=== PATIENT | female | born 1930 | race Hispanic/Latino ===

== ENCOUNTER 2017-04-23 18:38 | Inpatient (IN) | payer MEDICARE, OTHER ==
[2017-04-23 18:38] VITALS: BMI 23.8
[2017-04-23] MEDS ORDERED: Sodium Chloride 0.9% 1,000 ML IV STA (18:49)
--- NOTE | 2017-04-23 18:55 | ED PDOC ---
HPI: Altered Mental Status Time Seen by Provider: 04/23/17 18:49 Chief Complaint (Nursing): Altered Mental Status History Per: Family Onset/Duration Of Symptoms: Hrs (5) Onset Of Symptoms: Other (5 hrs ago) Description Of Symptoms: Confused Usual Baseline: Alert Oriented Exacerbating Factor(s): Fever Severity: Moderate Pain Scale Rating Of: 0 Associated Symptoms: Fever (Last seen normal by family at 2 PM 04/23/2017. Noted then to be confused and disoriented. Daughter also noted shaking left hand and arm. Improved after patient was given orange juice. Has been eating normally. Pt denies abd pain, headache, chest pain, vomiting or diarrhea.), Confused Past Medical History Vital Signs: Last Vital Signs Temp 102.7 F H 04/23/17 18:42 Pulse 79 04/23/17 18:42 Resp 18 04/23/17 18:42 BP 116/57 L 04/23/17 18:42 Pulse Ox 99 04/23/17 18:42 - Medical History PMH: Anemia, Atrial Fibrillation, CAD, Cardia Arrhythmia, CHF, COPD, Diabetes, Gastritis, HTN, Hypercholesterolemia, Peripheral Edema Denies: HIV, Chronic Kidney Disease - Surgical History Surgical History: CABG, Pacemaker (and defibrillator) Denies: Appendectomy - Family History Family History: States: Unknown Family Hx - Home Medications Home Medications: Ambulatory Orders Medication Instructions Recorded Acetaminophen [Tylenol Extra 650 mg PO Q6H PRN 06/17/14 Strength] Cyclosporine [Restasis] 1 drop EACHEYE BID 06/17/14 Dorzolamide 2%/Timolol 0.5% 1 drop EACHEYE BID 06/17/14 [Cosopt 2%-0.5% Opht] Ascorbic Acid/Cyanocobalamin1 1 tab PO DAILY 06/27/14 [Trigels-F Forte 60 mg-10 Mcg-1 mg-151 mg] Lactobacillus Acidophilus [Bacid 1 cap PO BID #0 cap 06/27/14 Acidophilus] Levalbuterol [Xopenex] 0.63 mg INH RQ8 PRN #0 neb 06/27/14 Multimineral/Multivitamin 1 tab PO DAILY #0 tab 06/27/14 [Therapeutic-M Tab] Pantoprazole [Protonix EC Tab] 40 mg PO BID #0 ect 06/27/14 Tafluprost [Zioptan] 1 drop EACHEYE HS 06/27/14 Aluminum Hydroxide/Magnesium 30 ml PO Q4 PRN #0 udc 07/09/14 [Maalox Plus 30 ml] Ferrous Sulfate [Feosol] 324 mg PO BID #0 ect 07/09/14 Apixaban [Eliquis] 2.5 mg PO BID #60 tab 10/24/14 Carvedilol 3.125 mg PO BID #60 tab 10/24/14 Furosemide 40 mg PO BID #60 tab 10/24/14 - Allergies Allergies/Adverse Reactions: Allergies Allergy/AdvReac Type Severity Reaction Status Date / Time Sulfa (Sulfonamide Allergy ITCHING Verified 04/23/17 18:41 Antibiotics) preservatives Allergy Unknown SWELLING Uncoded 10/01/14 15:06 Review of Systems ROS Statement: Except As Marked, All Systems Reviewed And Found Negative Constitutional: Positive for: Fever Neurological: Positive for: Confusion, Altered Mental Status. Negative for: Weakness, Headache Physical Exam - Reviewed Nursing Documentation Reviewed: Yes Vital Signs Reviewed: Yes - Physical Exam Appears: Positive for: Non-toxic, No Acute Distress Head Exam: Positive for: ATRAUMATIC, NORMAL INSPECTION, NORMOCEPHALIC Skin: Positive for: Normal Color, Warm, DRY Eye Exam: Positive for: EOMI, Normal appearance, PERRL ENT: Positive for: Other (Mucous membranes dry) Neck: Positive for: Normal, Painless ROM Cardiovascular/Chest: Positive for: Regular Rate, Rhythm Respiratory: Positive for: Rhonchi (scattered, no wheezing). Negative for: Respiratory Distress Gastrointestinal/Abdominal: Positive for: Normal Exam, Bowel Sounds, Soft Back: Positive for: Normal Inspection Extremity: Positive for: Normal ROM Neurologic/Psych: Positive for: Alert, Oriented (x1). Negative for: Motor/ Sensory Deficits - Laboratory Results Result Diagrams: 04/23/17 19:10 04/23/17 19:10 - ECG O2 Sat by Pulse Oximetry: 99 Disposition - Clinical Impression Clinical Impression: Sepsis, UTI (urinary tract infection), Dehydration - Patient ED Disposition Is Patient to be Admitted: Yes - Disposition Disposition Time: 19:50 Condition: FAIR Forms: [facility] (Mongolian) - Pt Status Changed To: Hospital Disposition Of: Inpatient - Admit Certification Admit to Inpatient:: After my assessment, the patient will require hospitalization for at least two midnights. This is because of the severity of symptoms shown, intensity of services needed, and/or the medical risk in this patient being treated as an outpatient. - POA Present On Arrival: None
[2017-04-23] MEDS ORDERED: Vancomycin 1 g Inj ONE (18:56)
[2017-04-23 19:18] LABS: BASO % 0.2 % (0.0-2.0); HEMOGLOBIN 11.9 g/dL (12.0-16.0); LYMPH # 0.2 K/uL (1.0-4.3); LYMPH % 1.8 % (20.0-40.0); MEAN CELL VOLUME 99.8 fl (81.0-99.0); MEAN CORPUSCULAR HEMOGLOBIN 32.4 pg (27.0-31.0); MEAN CORPUSCULAR HGB CONC 32.4 g/dL (33.0-37.0); MEAN PLATELET VOLUME 9.6 fl (7.2-11.7); MONO # 0.9 K/uL (0.0-0.8); MONO % 6.5 % (0.0-10.0); NEUT # 12.2 K/uL (1.8-7.0); NEUT % 91.5 % (50.0-75.0); PLATELET COUNT 117 K/uL (130-400); RBC 3.68 Mil/uL (3.80-5.20); RED CELL DISTRIBUTION WIDTH 16.1 % (11.5-14.5); WHITE BLOOD COUNT 13.3 K/uL (4.8-10.8)
[2017-04-23 19:21] LABS: VENOUS BLOOD GAS BASE EXCESS 2.7 mmol/L (0.0-2.0); VENOUS BLOOD GAS PCO2 44 mmHg (40-60); VENOUS BLOOD GAS PO2 19 mm/Hg (30-55); VENOUS BLOOD PH 7.41 (7.32-7.43)
[2017-04-23 19:26] LABS: ALB/GLOB RATIO 1.2 (1.0-2.1); ALBUMIN 4.4 g/dL (3.5-5.0); CALCIUM 9.5 mg/dL (8.4-10.2)
[2017-04-23] MEDS ORDERED: Meropenem 1 GM in Sodium Chloride 0.9% 100 ML IVPB ONE (19:40)
[2017-04-23 19:47] LABS: URINE BACTERIA FEW (<OCC); URINE BILIRUBIN NEGATIVE (NEGATIVE); URINE BLOOD MODERATE (NEGATIVE); URINE CLARITY TURBID (Clear); URINE COLOR AMBER (YELLOW); URINE GLUCOSE (UA) NEG (Normal); URINE LEUKOCYTE ESTERASE LARGE Leu/uL (Negative); URINE NITRATE NEGATIVE (NEGATIVE); URINE PROTEIN 100 mg/dL (NEGATIVE); URINE UROBILINOGEN 0.2-1.0 mg/dL (0.2-1.0); WBC CLUMPS MANY /hpf
[2017-04-23 19:59] LABS: INR 1.8 (0.9-1.2); PROTHROMBIN TIME 18.8 Seconds (9.8-13.1)
[2017-04-23 20:35] LABS: ANISOCYTOSIS MODERATE; BANDS 3 % (0-2); LARGE PLATELETS PRESENT; LYMPHOCYTE 4 % (20-50); MONOCYTE 8 % (0-10); NEUTROPHIL 85 % (42-75); PLATELET ESTIMATE SLIGHTLY DECREASED (NORMAL); POIKILOCYTOSIS SLIGHT; TEARDROP CELLS SLIGHT; TOTAL CELLS COUNTED 100
[2017-04-23] MEDS: Sodium Chloride 0.9% 1,000 ML IV SCH (22:32)
--- NOTE | 2017-04-23 23:58 | CP.PCM.PN ---
Subjective - Date & Time of Evaluation Date of Evaluation: 04/23/17 Time of Evaluation: 23:47 - Subjective Subjective: I D NOTE PATIENT EXAMINED HISTORY WELL KNOWN TO ME DIAGNOSIS 1.UROSEPSIS 2.DEHYDRATION 3.CAD 4.AF(HAS DEFIBRILLATOR 5.COPD 6.CHF RX:MEROPENEM 500MG IVPB Q8H HAS BEEN GIVEN STAT DOSE OF VANCOMYCIN 500MG IN THE ER AWAIT RANDOM VANCOMYCIN LEVEL IN AM Objective - Vital Signs/Intake and Output Vital Signs (last 24 hours): Temp Pulse Resp BP Pulse Ox 98.3 F 79 18 112/46 L 99 04/23/17 20:34 04/23/17 18:42 04/23/17 18:42 04/23/17 22:44 04/23/17 19:50 - Medications Medications: Current Medications Sodium Chloride (Sodium Chloride 0.9%) 1,000 mls @ 100 mls/hr IV .Q10H [facility] Stop: 04/24/17 04:48 Last Admin: 04/23/17 19:35 Dose: 100 mls/hr Sodium Chloride (Sodium Chloride 0.9%) 1,000 mls @ 50 mls/hr IV .Q20H [facility] Stop: 04/24/17 21:20 Last Admin: 04/23/17 22:32 Dose: 50 mls/hr Meropenem 500 mg/ Sodium (Chloride) 100 mls @ 100 mls/hr IVPB Q8 [facility] - Labs Labs: PT 18.8 Seconds (9.8-13.1) H 04/23/17 19:20 INR 1.8 (0.9-1.2) H 04/23/17 19:20
[2017-04-24] MEDS: Meropenem 500 MG in Sodium Chloride 0.9% 100 ML IVPB SCH ×2 (02:43→12:55)
[2017-04-24 06:23] LABS: BASO % 0.2 % (0.0-2.0); HEMOGLOBIN 11.2 g/dL (12.0-16.0); LYMPH # 0.3 K/uL (1.0-4.3); LYMPH % 2.3 % (20.0-40.0); MEAN CELL VOLUME 100.4 fl (81.0-99.0); MEAN CORPUSCULAR HEMOGLOBIN 32.3 pg (27.0-31.0); MEAN CORPUSCULAR HGB CONC 32.2 g/dL (33.0-37.0); MEAN PLATELET VOLUME 10.2 fl (7.2-11.7); MONO % 7.7 % (0.0-10.0); NEUT # 11.1 K/uL (1.8-7.0); NEUT % 89.8 % (50.0-75.0); NRBC % 0.1 % (0.0-0.0); RBC 3.45 Mil/uL (3.80-5.20); RED CELL DISTRIBUTION WIDTH 15.7 % (11.5-14.5); WHITE BLOOD COUNT 12.4 K/uL (4.8-10.8)
[2017-04-24 06:40] LABS: ALB/GLOB RATIO 1.2 (1.0-2.1); CALCIUM 8.9 mg/dL (8.4-10.2)
--- NOTE | 2017-04-24 07:34 | CARD ---
APPROVED REPORT EKG Measurement Heart [id number] <Conclusion> Atrial Fib Ventricular-paced rhythm with occasional premature ventricular complexes Abnormal ECG
--- NOTE | 2017-04-24 09:22 | RAD ---
HISTORY: cough COMPARISON: Portable chest 10/10/2014. FINDINGS: LUNGS: No acute infiltrate identified in the pulmonary vascular pattern appears normal with prior pulmonary venous congestion pattern diminished or resolved. PLEURA: No significant pleural effusion identified, no pneumothorax apparent. Prior right pleural effusion appears to have cleared. CARDIOVASCULAR: Cardiomegaly appears stable. OSSEOUS STRUCTURES: No significant abnormalities. VISUALIZED UPPER ABDOMEN: Normal. OTHER FINDINGS: Pacemaker/ implantable it again identified placed as well as apparent or orphaned leads at the right heart from a right subclavian approach. IMPRESSION: Interval resolution of prior CHF pattern including right pleural effusion pulmonary venous congestion. No acute infiltrate identified at this time.
--- NOTE | 2017-04-24 10:35 | CP.PCM.HP ---
History of Present Illness - History of Present Illness History of Present Illness: this 86-year-old female was brought to the emergency room by her family after being found to have fever and chills. The patient has had a long history of worsening dementia but on this particular day she was further confused and disoriented. The patient has had a long medical history which includes an acute inferior wall myocardial infarction in 1987 followed by a cardiac arrest in 1992 from which she was revived, coronary bypass graft surgery was carried out and the patient had an AICD implanted. The patient has had chronic atrial fibrillation which was treated with oral anticoagulation in the form of warfarin for number of years. The patient had recurrent GI bleeds and had severe anemia which required transfusions on multiple occasions in the past. The patient and her family declined to have any gastrointestinal workup. The patient has had a long history of chronic cigarette use and she has chronic obstructive airway disease. The patient has had glaucoma and bilateral macular degeneration with severe impairment of vision in both eyes. She has had worsening dementia and her cognitive abilities has steadily declined. The patient has had congestive cardiac failure and has been treated with furosemide for number of years. The patient has been on Eliquis for couple of years because of atrial fibrillation. Her AICD has been regularly evaluated. She has undergone AV node ablation and depends on her pacemaker which functions in a VVI mode and has BiV pacing. The patient has had recent fall but did not suffer any bony injury and declined to come to emergency room for x-rays. On physical examination this was an elderly female who was resting in bed with a respiratory rate of 16 breaths per minute and could carry on a conversation. She readily recognize me but could not precisely say how she got here. Her telemetry showed atrial fibrillation with a VVI paced rhythm. Her extremities were warm. Nailbeds were pink there was no central or peripheral cyanosis. Her blood pressure was 112/70 mmHg. Her jugular venous pressure was not elevated. There was no edema over her lower extremity or sacrum. Her pedal pulses were not palpable. There were no carotid bruits. Scar of sternotomy was evident and an AICD was in place. Her first and second heart sounds were normal and distant there was an apical systolic murmur of mitral regurgitation. There was no S3 gallop. Excretion was slightly prolonged. There were no rales. Her abdomen was soft no organomegaly was detected there was no guarding or rigidity or tenderness no mass was detected. Her electrocardiogram showed atrial fibrillation with VVI paced rhythm. Her labs showed on arrival in the emergency room she had a WBC count of 13,300 with 91% neutrophils which this morning was 12,400 with 89% neutrophils. Her hemoglobin and hematocrit where 11.2 g and 34.7% respectively this morning her platelet count which was 117,000 at admission was 100,000 this morning. Her BUN and creatinine which at admission were 53 and 1.8 mg percent where 54 and 1.7 mg percent this morning after intravenous hydration. Her urinalysis showed large number of WBCs and red blood cells with bacteria. Impression: urosepsis. Congestive cardiac failure which was left ventricular systolic and chronic. Stable coronary artery disease with prior myocardial infarctions and status post coronary bypass graft surgery. Chronic atrial fibrillation. AV node ablation with status post AICD implant with bi-V pacing in VVI mode. COPD. Significant visual impairment secondary to glaucoma and macular degeneration. Dementia. the patient is on intravenous antibiotic and intravenous fluids. She appears to have responded to the IV antibiotic with resolution of her fever. Urine culture and blood cultures are pending. A urology evaluation would be carried out. She appears hemodynamically stable at this juncture. Present on Admission - Present on Admission Any Indicators Present on Admission: No Past Patient History - Infectious Disease Hx of Infectious Diseases: None - Tetanus Immunizations Tetanus Immunization: Unknown - Past Medical History & Family History Past Medical History?: Yes - Past Social History Smoking Status: Never Smoked - CARDIAC Hx Cardiac Disorders: Yes - PULMONARY Hx Respiratory Disorders: Yes - NEUROLOGICAL Hx Neurological Disorder: No - HEENT Hx Glaucoma: Yes - RENAL Hx Chronic Kidney Disease: No - ENDOCRINE/METABOLIC Hx Endocrine Disorders: Yes - HEMATOLOGICAL/ONCOLOGICAL Hx Anemia: Yes Hx Human Immunodeficiency Virus (HIV): No - INTEGUMENTARY Hx Dermatological Problems: No - MUSCULOSKELETAL/RHEUMATOLOGICAL Hx Falls: Yes - GASTROINTESTINAL Hx Gastritis: Yes - GENITOURINARY/GYNECOLOGICAL Hx Genitourinary Disorders: No - PSYCHIATRIC Hx Psychophysiologic Disorder: No Hx Substance Use: No - SURGICAL HISTORY Hx Appendectomy: No Hx Coronary Artery Bypass Graft: Yes - ANESTHESIA Hx Anesthesia: Yes Hx Anesthesia Reactions: No Hx Malignant Hyperthermia: No Meds Allergies/Adverse Reactions: Allergies Allergy/AdvReac Type Severity Reaction Status Date / Time Sulfa (Sulfonamide Allergy ITCHING Verified 04/23/17 18:41 Antibiotics) preservatives Allergy Unknown SWELLING Uncoded 10/01/14 15:06 Results - Vital Signs Recent Vital Signs: Last Vital Signs Temp 99.1 F 04/24/17 08:00 Pulse 77 04/24/17 08:00 Resp 18 04/24/17 08:00 BP 101/61 04/24/17 08:00 Pulse Ox 95 04/24/17 08:00 - Labs Result Diagrams: 04/24/17 05:30 04/24/17 05:30 Labs: Laboratory Results - last 24 hr 04/24/17 04/24/17 04/24/17 05:30 05:30 05:30 WBC 12.4 H RBC 3.45 L Hgb 11.2 L Hct 34.7 MCV 100.4 H MCH 32.3 H MCHC 32.2 L RDW 15.7 H Plt Count 100 L MPV 10.2 Neut % (Auto) 89.8 H Lymph % (Auto) 2.3 L [place] % (Auto) 7.7 Eos % (Auto) 0.0 Baso % (Auto) 0.2 Neut # 11.1 H Lymph # 0.3 L [place] # 1.0 H Eos # 0.0 Baso # 0.0 Sodium 137 Potassium 5.0 Chloride 101 Carbon Dioxide 24 Anion Gap 17 BUN 54 H Creatinine 1.7 H Est GFR ( Amer) 34 Est GFR (Non-Af Amer) 28 Random Glucose 225 H Lactic Acid 1.4 Calcium 8.9 Total Bilirubin 0.9 AST 27 ALT 34 Alkaline Phosphatase 116 Total Protein 7.3 Albumin 4.0 Globulin 3.3 Albumin/Globulin Ratio 1.2 Random Vancomycin 04/24/17 05:30 WBC RBC Hgb Hct MCV MCH MCHC RDW Plt Count MPV Neut % (Auto) Lymph % (Auto) [place] % (Auto) Eos % (Auto) Baso % (Auto) Neut # Lymph # [place] # Eos # Baso # Sodium Potassium Chloride Carbon Dioxide Anion Gap BUN Creatinine Est GFR ( Amer) Est GFR (Non-Af Amer) Random Glucose Lactic Acid Calcium Total Bilirubin AST ALT Alkaline Phosphatase Total Protein Albumin Globulin Albumin/Globulin Ratio Random Vancomycin 9.1
[2017-04-24] MEDS ORDERED: Alum-Mag Hydrox-Simethicone Susp (30 mL) PO PRN (11:26)
--- NOTE | 2017-04-24 13:10 | PQF UROSEP ---
This form is a permanent part of the medical record 04/24/17 Dr. Elian Wade, Please clarify the specific condition indicated by the term 'urosepsis'. ICD-10 does not recognize this as a diagnosis. Admitted with fever, chills and AMS. Temp 102.7. WBC 13.3 with a L shift, UA: Turbid, leukocyte esterase large, wbc, bacteria. Blood and Urine CS Pending results. Treated with Merrem. Clarification of your documentation is requested to better reflect the severity of illness and intensity of treatment of your patient. Indicators present [x] Documentation of UROSEPSIS [x] Fever or hypothermia [x] WBC count > 12,000/mm3 or <4000/mm3 or 10% immature neutrophils [] Hypotension [] Tachycardia [x] Altered mental status/confusion [] + Urine/Blood Cultures " Pending [x] Other: [] UA: turbid, leukocyte esterase large, wbc, bacteria Location in the medical record that reflects the above clinical findings: [] Treatment Provided: [x] PHYSICIAN'S RESPONSE Bacteremia present (Blood culture +ve for GM - Rods) Based on your medical judgment of the clinical indicators outlined above, are you treating this patient for a known or suspected: [X] Sepsis from a Urinary Source [] Localized Urinary Tract Infection - pyuria or bacteria in the urine [] Bacteriuria only without infection [] Other, please indicate [] [] If unable to determine, please check the box, sign and date. Present On Admission (POA) Indicator: [X] Present at the time of admission [] Not present at the time of admission [] Clinically Undetermined In responding to this query, please exercise your independent professional judgment. The fact that a question is asked does not imply that any particular answer is desired or expected. Thank you for your clarification on this documentation. If you have any questions please call:ext [phone] * Thank you, Bre Aguilar RN CDMP MTDD
[2017-04-24] MEDS ORDERED: Patient's Own Med (Dorzolamide 2%/Timolol 0.5% [Cosopt 2%-0.5% Opht] 1 DROP) EACHEYE SCH (17:00)
[2017-04-24] MEDS ORDERED: Dorzolamide 2% Ophth Soln OU SCH (17:00)
[2017-04-24] MEDS: Sodium Chloride 0.9% 1,000 ML IV SCH (17:35)
--- NOTE | 2017-04-24 19:51 | CP.PCM.PN ---
Subjective - Date & Time of Evaluation Date of Evaluation: 04/24/17 Time of Evaluation: 19:44 - Subjective Subjective: ID NOTE PATIENT HAS APPEARED UNCOMFORTABLE SINCE EARLY AFTER NOON HAS HAD COUGH .OCCASSIONALSOB AND SUDDEN BOUT OF ABDOMINAL PAIN ,HAS NOT HAD BM TODAY. ON PE THERE ARE INCREASED BS,PAIN ON EXAM IN RIGHT AND LEFT LQ BLOOD CULTURES ARE POSITIVE FOR GRAM NEGATIVE RODS HAVE ADDED ZOSYN IN ADJUSTED DOSE TO RX DISCUSSED C RESPIRATORY TREATMENTS ORDERED.PULMONARY CONSULT ORDERED C PORTABLE FLAT PLATE OF ABDOMEN :AWAITING READING BUT APPEARS TO BE ILEUS,AIR IN bowel HAS ULTRASOUND ABDOMEN /PELVIS FOR AM ALONG C CBC/CMP/FOLLLOWUP BLOOD CULTURES Objective - Vital Signs/Intake and Output Vital Signs (last 24 hours): Temp Pulse Resp BP Pulse Ox 98.2 F 79 18 104/57 L 99 04/24/17 16:00 04/24/17 17:34 04/24/17 16:00 04/24/17 17:34 04/24/17 16:00 Intake and Output: 04/24/17 04/25/17 18:59 06:59 Intake Total 1000 Output Total 1100 Balance -100 - Medications Medications: Current Medications Al Hydrox/Mg Hydrox/Simethicone (Maalox Plus 30 Ml) 30 ml PO Q4 PRN PRN Reason: Indigestion / Heartburn Apixaban (Eliquis) 2.5 mg PO BID [facility] PRN Reason: Protocol Last Admin: 04/24/17 17:34 Dose: 2.5 mg Carvedilol (Coreg) 3.125 mg PO BID [facility] Last Admin: 04/24/17 17:34 Dose: 3.125 mg Ferrous Sulfate (Feosol) 325 mg PO BID [facility] Last Admin: 04/24/17 17:34 Dose: 325 mg Home Med (Cyclosporine [Restasis]) 1 drop BOTHEYES BID [facility] Sodium Chloride (Sodium Chloride 0.9%) 1,000 mls @ 50 mls/hr IV .Q20H [facility] Stop: 04/24/17 21:20 Last Admin: 04/24/17 17:35 Dose: 50 mls/hr Meropenem 500 mg/ Sodium (Chloride) 100 mls @ 100 mls/hr IVPB Q12 [facility] Piperacillin Sod/Tazobactam (Sod 2.25 gm/ Sodium Chloride) 100 mls @ 100 mls/ hr IVPB Q8H [facility] Levalbuterol HCl (Xopenex) 0.63 mg INH RQ8 [facility] Multivitamins/Minerals (Therapeutic-M Tab) 1 tab PO DAILY [facility] Pantoprazole Sodium (Protonix Ec Tab) 40 mg PO DAILY [facility] - Labs Labs: 04/24/17 05:30 04/24/17 05:30 PT 18.8 Seconds (9.8-13.1) H 04/23/17 19:20 INR 1.8 (0.9-1.2) H 04/23/17 19:20
--- NOTE | 2017-04-24 20:40 | RAD ---
EXAM: XR Abdomen, 1 View CLINICAL HISTORY: 86 years old, female; Pain; Abdominal pain; Generalized TECHNIQUE: Frontal supine view of the abdomen/pelvis. EXAM DATE/TIME: 04/24/2017 6:51 PM COMPARISON: CR - ABDOMEN PORTABLE 2 VIEWS 07/07/2014 9:37:58 PM FINDINGS: Lower thorax: The heart is enlarged. There are pacemaker leads. Lung bases are clear. Gastrointestinal tract: There is mild gaseous distention of small bowel. There is moderate stool and air in portions of the colon. Bones/joints: Bony structures are osteopenic with degenerative change. Soft tissues: There are no abnormal soft tissue masses or pathologic calcifications. There are clips in the left inguinal region. IMPRESSION: Mildly distended small bowel more suggestive of ileus than obstruction Additional findings as described above.
[2017-04-24] MEDS ORDERED: Meropenem 500 MG in Sodium Chloride 0.9% 100 ML IVPB SCH (21:00)
[2017-04-25] MEDS: Levalbuterol 0.63 MG/3 ML Inhal Soln UD INH SCH ×4 (00:03→23:49)
[2017-04-25] MEDS: Meropenem 500 MG in Sodium Chloride 0.9% 100 ML IVPB SCH ×2 (01:00→15:25)
[2017-04-25 06:22] LABS: BASO % 0.3 % (0.0-2.0); EOS % 0.1 % (0.0-4.0); HEMOGLOBIN 10.3 g/dL (12.0-16.0); LYMPH # 0.4 K/uL (1.0-4.3); LYMPH % 5.4 % (20.0-40.0); MEAN CELL VOLUME 100.2 fl (81.0-99.0); MEAN CORPUSCULAR HEMOGLOBIN 32.5 pg (27.0-31.0); MEAN CORPUSCULAR HGB CONC 32.5 g/dL (33.0-37.0); MEAN PLATELET VOLUME 10.1 fl (7.2-11.7); MONO # 0.8 K/uL (0.0-0.8); MONO % 12.2 % (0.0-10.0); NEUT # 5.3 K/uL (1.8-7.0); RBC 3.15 Mil/uL (3.80-5.20); WHITE BLOOD COUNT 6.5 K/uL (4.8-10.8)
[2017-04-25 06:32] LABS: ALB/GLOB RATIO 1.1 (1.0-2.1); ALBUMIN 3.3 g/dL (3.5-5.0); CALCIUM 8.4 mg/dL (8.4-10.2)
[2017-04-25] MEDS: Pantoprazole 40 mg EC Tab PO SCH (09:57)
[2017-04-25] MEDS: Multivitamin With Minerals Tab PO SCH (09:57)
--- NOTE | 2017-04-25 10:12 | CP.PCM.PN ---
Subjective - Date & Time of Evaluation Date of Evaluation: 04/25/17 Time of Evaluation: 09:00 - Subjective Subjective: Pt's son at bedside Readily arousable Recognised me readily Answers questions appropriately Afebrile (except for temp of 100 degrees at 5 M) A Fib with VVI paced rhythm BP 106/70 mm Hg JVP flat, no rales Apical syst murmur of MR Abd soft without any tenderness or guarding or rigidity Blood Cultures have grown GM -ve Rods Leucocytosis has resolved Creatinin down to 1.4 mg (GFR much improved) Pt will go for Abd sonogram now Will have PICC line inserted today afternoon Explained to the son at length her progress and her Rx Objective - Vital Signs/Intake and Output Vital Signs (last 24 hours): Temp Pulse Resp BP Pulse Ox 98.3 F 76 20 100/57 L 99 04/25/17 08:45 04/25/17 09:56 04/25/17 08:45 04/25/17 09:56 04/25/17 08:45 Intake and Output: 04/25/17 04/25/17 06:59 18:59 Output Total 250 Balance -250 - Medications Medications: Current Medications Al Hydrox/Mg Hydrox/Simethicone (Maalox Plus 30 Ml) 30 ml PO Q4 PRN PRN Reason: Indigestion / Heartburn Apixaban (Eliquis) 2.5 mg PO BID [facility] PRN Reason: Protocol Last Admin: 04/25/17 09:57 Dose: 2.5 mg Carvedilol (Coreg) 3.125 mg PO BID [facility] Last Admin: 04/25/17 09:56 Dose: 3.125 mg Ferrous Sulfate (Feosol) 325 mg PO BID [facility] Last Admin: 04/25/17 09:57 Dose: 325 mg Home Med (Cyclosporine [Restasis]) 1 drop BOTHEYES BID [facility] Piperacillin Sod/Tazobactam (Sod 2.25 gm/ Sodium Chloride) 100 mls @ 100 mls/ hr IVPB Q8@0600,1400,2200 [facility] Last Admin: 04/25/17 06:21 Dose: 100 mls/hr Meropenem 500 mg/ Sodium (Chloride) 100 mls @ 100 mls/hr IVPB Q12@0000,1200 [facility] Last Admin: 04/25/17 01:00 Dose: 100 mls/hr Sodium Chloride (Sodium Chloride 0.9%) 1,000 mls @ 50 mls/hr IV .Q20H [facility] Stop: 04/26/17 09:58 Levalbuterol HCl (Xopenex) 0.63 mg INH RQ8 [facility] Last Admin: 04/25/17 07:34 Dose: 0.63 mg Multivitamins/Minerals (Therapeutic-M Tab) 1 tab PO DAILY [facility] Last Admin: 04/25/17 09:57 Dose: 1 tab Pantoprazole Sodium (Protonix Ec Tab) 40 mg PO DAILY [facility] Last Admin: 04/25/17 09:57 Dose: 40 mg - Labs Labs: 04/25/17 05:20 04/25/17 05:20 PT 18.8 Seconds (9.8-13.1) H 04/23/17 19:20 INR 1.8 (0.9-1.2) H 04/23/17 19:20
--- NOTE | 2017-04-25 11:19 | CP.PCM.PN ---
Subjective - Date & Time of Evaluation Date of Evaluation: 04/25/17 Time of Evaluation: 11:17 - Subjective Subjective: gu consult on chart. imp urosepsis on appropiate inv antibiotics. cont for several more days then transition to po antibiotics according to c&s report Objective - Vital Signs/Intake and Output Vital Signs (last 24 hours): Temp Pulse Resp BP Pulse Ox 98.3 F 76 20 100/57 L 99 04/25/17 08:45 04/25/17 09:56 04/25/17 08:45 04/25/17 09:56 04/25/17 08:45 Intake and Output: 04/25/17 04/25/17 06:59 18:59 Output Total 250 Balance -250 - Medications Medications: Current Medications Al Hydrox/Mg Hydrox/Simethicone (Maalox Plus 30 Ml) 30 ml PO Q4 PRN PRN Reason: Indigestion / Heartburn Apixaban (Eliquis) 2.5 mg PO BID [facility] PRN Reason: Protocol Last Admin: 04/25/17 09:57 Dose: 2.5 mg Carvedilol (Coreg) 3.125 mg PO BID [facility] Last Admin: 04/25/17 09:56 Dose: 3.125 mg Ferrous Sulfate (Feosol) 325 mg PO BID [facility] Last Admin: 04/25/17 09:57 Dose: 325 mg Home Med (Cyclosporine [Restasis]) 1 drop BOTHEYES BID [facility] Piperacillin Sod/Tazobactam (Sod 2.25 gm/ Sodium Chloride) 100 mls @ 100 mls/ hr IVPB Q8@0600,1400,2200 [facility] Last Admin: 04/25/17 06:21 Dose: 100 mls/hr Meropenem 500 mg/ Sodium (Chloride) 100 mls @ 100 mls/hr IVPB Q12@0000,1200 [facility] Last Admin: 04/25/17 01:00 Dose: 100 mls/hr Sodium Chloride (Sodium Chloride 0.9%) 1,000 mls @ 50 mls/hr IV .Q20H [facility] Stop: 04/26/17 09:58 Levalbuterol HCl (Xopenex) 0.63 mg INH RQ8 [facility] Last Admin: 04/25/17 07:34 Dose: 0.63 mg Multivitamins/Minerals (Therapeutic-M Tab) 1 tab PO DAILY [facility] Last Admin: 04/25/17 09:57 Dose: 1 tab Pantoprazole Sodium (Protonix Ec Tab) 40 mg PO DAILY [facility] Last Admin: 04/25/17 09:57 Dose: 40 mg - Labs Labs: 04/25/17 05:20 04/25/17 05:20 PT 18.8 Seconds (9.8-13.1) H 04/23/17 19:20 INR 1.8 (0.9-1.2) H 04/23/17 19:20
--- NOTE | 2017-04-25 13:52 | CP.PCM.CON ---
History of Present Illness - History of Present Illness History of Present Illness: This 87 year old female is known to me from prior hospitalization as well as the outpatient setting. She is a former cigarette smoker with prior diagnosis of COPD. At this time she was admitted with UTI and sepsis, but her respiratory disease has been quiescent. Her activity at home is markedly limited and she does not complain of SOB. She has an extensive cardiac history complicated by arrhythmia as well as cardiomyopathy and prior OR/cardiac arrest. Comorbid conditions have included, GI bleeding, COPD and dementia. Past Patient History - Infectious Disease Hx of Infectious Diseases: None - Tetanus Immunizations Tetanus Immunization: Unknown - Past Medical History & Family History Past Medical History?: Yes - Past Social History Smoking Status: Former Smoker Chewing Tobacco Use: No Cigar Use: No Alcohol: None Drugs: Denies Home Situation {Lives}: With Family - CARDIAC Hx Atrial Fibrillation: Yes Hx Congestive Heart Failure: Yes Hx Heart Attack: Yes Hx Hypercholesterolemia: Yes Hx Hypertension: Yes Hx Internal Defibrillator: Yes Hx Pacemaker: Yes Hx Peripheral Edema: Yes - PULMONARY Hx Chronic Obstructive Pulmonary Disease (COPD): Yes - NEUROLOGICAL Hx Dementia: Yes - HEENT Hx Glaucoma: Yes Hx Macular Degeneration: Yes - RENAL Hx Chronic Kidney Disease: No - ENDOCRINE/METABOLIC Hx Endocrine Disorders: No - HEMATOLOGICAL/ONCOLOGICAL Hx Anemia: Yes Hx Blood Transfusions: Yes Hx Human Immunodeficiency Virus (HIV): No - INTEGUMENTARY Hx Dermatological Problems: No - MUSCULOSKELETAL/RHEUMATOLOGICAL Hx Falls: Yes - GASTROINTESTINAL Hx Gastritis: Yes - GENITOURINARY/GYNECOLOGICAL Hx Genitourinary Disorders: No - PSYCHIATRIC Hx Psychophysiologic Disorder: No Hx Substance Use: No - SURGICAL HISTORY Hx Appendectomy: No Hx Cardiac Catheterization: Yes Hx Coronary Artery Bypass Graft: Yes - ANESTHESIA Hx Anesthesia: Yes Hx Anesthesia Reactions: No Hx Malignant Hyperthermia: No Meds Allergies/Adverse Reactions: Allergies Allergy/AdvReac Type Severity Reaction Status Date / Time Sulfa (Sulfonamide Allergy ITCHING Verified 04/23/17 18:41 Antibiotics) preservatives Allergy Unknown SWELLING Uncoded 10/01/14 15:06 - Medications Medications: Current Medications Al Hydrox/Mg Hydrox/Simethicone (Maalox Plus 30 Ml) 30 ml PO Q4 PRN PRN Reason: Indigestion / Heartburn Apixaban (Eliquis) 2.5 mg PO BID [facility] PRN Reason: Protocol Last Admin: 04/25/17 09:57 Dose: 2.5 mg Carvedilol (Coreg) 3.125 mg PO BID [facility] Last Admin: 04/25/17 09:56 Dose: 3.125 mg Ferrous Sulfate (Feosol) 325 mg PO BID [facility] Last Admin: 04/25/17 09:57 Dose: 325 mg Home Med (Cyclosporine [Restasis]) 1 drop BOTHEYES BID [facility] Piperacillin Sod/Tazobactam (Sod 2.25 gm/ Sodium Chloride) 100 mls @ 100 mls/ hr IVPB Q8@0600,1400,2200 [facility] Last Admin: 04/25/17 06:21 Dose: 100 mls/hr Meropenem 500 mg/ Sodium (Chloride) 100 mls @ 100 mls/hr IVPB Q12@0000,1200 [facility] Last Admin: 04/25/17 01:00 Dose: 100 mls/hr Sodium Chloride (Sodium Chloride 0.9%) 1,000 mls @ 50 mls/hr IV .Q20H [facility] Stop: 04/26/17 09:58 Levalbuterol HCl (Xopenex) 0.63 mg INH RQ8 [facility] Last Admin: 04/25/17 07:34 Dose: 0.63 mg Multivitamins/Minerals (Therapeutic-M Tab) 1 tab PO DAILY [facility] Last Admin: 04/25/17 09:57 Dose: 1 tab Pantoprazole Sodium (Protonix Ec Tab) 40 mg PO DAILY [facility] Last Admin: 04/25/17 09:57 Dose: 40 mg Physical Exam - Additional Findings Additional findings: No jaundice, well-nourished well-developed, no acute distress. Neck is supple and trachea is midline. No neck vein distention is noted. Carotids are equal with diminished upstroke bilaterally. No bruit. No cervical adenopathy. No palpable thyroid enlargement. No supraclavicular or axillary adenopathy. Pharynx is pink and mucous membranes are moist. No exudate. Conjunctivae are pale and there is no scleral icterus. Nares are patent bilaterally, no bleeding or exudate. Chest: No dullness to percussion. Equal expansion. Lungs: Breath sounds are diminished but present bilaterally. There are no audible rales or wheezes heard. No bronchial breath sounds. No egophony. Heart: Regular, systolic murmur is heard along the left sternal border and at the apex. Abdomen is soft and nontender. Bowel sounds appear normal. There is no palpable hepatosplenomegaly or mass. No hepatojugular reflux. Lower extremities: No cyanosis. Scattered varicose veins are noted in both lower extremities. Trace edema of the feet bilaterally. No calf tenderness or palpable venous cords. No Homans sign. She is awake, alert and oriented x3. Focal motor weaknesses noted. Forgetful. Speech is fluent. Cranial nerves are intact Results - Vital Signs Recent Vital Signs: Last Vital Signs Temp 97.9 F 04/25/17 12:34 Pulse 80 04/25/17 12:34 Resp 18 04/25/17 12:34 BP 85/48 L 04/25/17 12:34 Pulse Ox 97 04/25/17 12:34 - Labs Result Diagrams: 04/28/17 05:45 04/28/17 05:45 Labs: Laboratory Results - last 24 hr 04/24/17 04/25/17 04/25/17 05:30 05:20 05:20 WBC 6.5 RBC 3.15 L Hgb 10.3 L Hct 31.6 L MCV 100.2 H MCH 32.5 H MCHC 32.5 L RDW 16.0 H Plt Count 82 L MPV 10.1 Neut % (Auto) 82.0 H Lymph % (Auto) 5.4 L Banner % (Auto) 12.2 H Eos % (Auto) 0.1 Baso % (Auto) 0.3 Neut # 5.3 Lymph # 0.4 L Banner # 0.8 Eos # 0.0 Baso # 0.0 Sodium 138 Potassium 4.2 Chloride 104 Carbon Dioxide 24 Anion Gap 14 BUN 54 H Creatinine 1.4 H Est GFR ( Amer) 43 Est GFR (Non-Af Amer) 35 Random Glucose 183 H Calcium 8.4 Total Bilirubin 0.7 AST 25 ALT 32 Alkaline Phosphatase 89 Total Protein 6.4 Albumin 3.3 L Globulin 3.1 Albumin/Globulin Ratio 1.1 Procalcitonin 2.39 H Assessment & Plan (1) Sepsis Status: Acute Priority: High (2) UTI (urinary tract infection) Status: Acute Priority: High (3) COPD (chronic obstructive pulmonary disease) Status: Chronic Priority: Medium Comment: No current complaints of SOB or wheezing. Present CXR is clear of infiltrates or effusions. Low venous O2 sat reflects combination of chronic lung disease and reduced cardiac output. Would not change anything or add other treatments at this time. (4) Cardiomyopathy Status: Chronic Priority: High - Assessment and Plan (Free Text) Plan: THANKS, - Date & Time Date: 04/25/17 Time: 13:50
--- NOTE | 2017-04-25 15:12 | US ---
HISTORY: RLQ discomfort COMPARISON: 05/15/2011. TECHNIQUE: Sonographic evaluation of the abdomen. FINDINGS: LIVER: Measures 16.6 cm. Patent portal vein. Portal venous flow: Hepatopetal. Unremarkeable Normal echogenicity of the liver parenchyma. No mass. No intrahepatic bile duct dilatation. GALLBLADDER: Unremarkable. No gallstones. COMMON BILE DUCT: Measures 4.1 mm. No stones. No dilatation. PANCREAS: Obscured by overlying bowel gas. Non diagnostic assessment of the pancreas RIGHT KIDNEY: Measures 3.9 x 5.4 x 11.3cm. Normal echogenicity. No calculus, mass, or hydronephrosis.Incidental finding(s): Upper pole cysts 1.5 x 1.1 cm unchanged compared to prior study. LEFT KIDNEY: Measures 4.9 x 5 x 10cm. Normal echogenicity. No calculus, mass, or hydronephrosis.Incidental finding(s): Upper pole cyst 1.7 x 2.6 x 2.5 cm SPLEEN: Splenomegaly. Orthogonal measurements 5 x 13.2 cm. AORTA: No aneurysmal dilatation. IVC: Unremarkable. OTHER FINDINGS: None. IMPRESSION: Splenomegaly. This represents a new finding compared to the prior study.Additional benign and/or incidental findings described above. Limitations of the current examination: Nondiagnostic assessment of the pancreas obscured by overlying bowel gas
[2017-04-25] MEDS ORDERED: Lidocaine 1% Inj (20ml) ONE (15:42)
--- NOTE | 2017-04-25 16:55 | PCM.SURG1 ---
Surgeon's Initial Post Op Note - Surgeon's Notes Surgeon: Jostin Galeano MD Expeller Worker: None Type of Anesthesia: Local Pre-Operative Diagnosis: Poor venous access Operative Findings: Patent right basilic vein. Post-Operative Diagnosis: Poor venous access Operation Performed: Poor venous access Specimen/Specimens Removed: NONE Estimated Blood Loss: EBL {In ML}: 2 Blood Products Given: N/A Drains Used: No Drains Post-Op Condition: Fair Date of Surgery/Procedure: 04/25/17 Time of Surgery/Procedure: 16:50
[2017-04-25] MEDS: Sodium Chloride 0.9% 1,000 ML IV SCH (17:44)
--- NOTE | 2017-04-25 20:37 | CON ---
DATE: This is an 87-year-old female patient who I was asked to evaluate today because of urinary tract infection. The patient is accompanied in her room with her son who gave me a perceptive on the patient's overall medical condition. She has a significant cardiac history in the past. Her ability to ambulate is quite restricted. She suffers of easy fatigability. She does essentially live by herself and the son suggested that because of significant lack of personal hygiene that perhaps the patient has suffered urinary tract infection. In her home, her chair where the patient usually sits is saturated with urine, appears not to be completely clean. In an any event, the patient then came to the hospital with initial laboratory findings of elevated white blood cell count at 13.3. She was quite dry with a BUN and creatinine of 54 and 1.7. Also, the patient is probably diabetic and her blood sugar was 225 at the time of admission. A urine culture was performed, grew significant amounts of gram-negative rods, probably E. coli. The patient has been placed on antibiotic meropenem and piperacillin were given to the patient and a Mackey catheter was inserted. The subsequent lab reports from the date of admission on the , the blood work today on the showed the BUN remains at 54, the creatinine is slowly coming down at 1.4. Her sugar this morning was 183. White blood cell count now is down to 6.5 within normal range. The final culture is pending, but also was found culture positive in the blood as well, so this appears to be an uroseptic condition and she is probably on significant and appropriate IV antibiotics. The catheter, the urine in the bag appears to be somewhat concentrated, but rather clear in appearance. The patient is completely asleep and totally fatigued. The conservation has been with the son for this evaluation. I think at this point when the patient has had several more days of IV antibiotics, Mackey catheter can be removed because I have not heard at any place that the patient has any difficulty urinating. This was probably met more for monitoring intake and output and so I think once the patient is more stable, then the catheter should come out and stress of hygiene of the area would be of primary importance and at some point, she will be transitioned from IV antibiotics to p.o. oral and then followed up as an outpatient. Nima Perez MD
[2017-04-26] MEDS: Meropenem 500 MG in Sodium Chloride 0.9% 100 ML IVPB SCH ×2 (00:11→14:50)
[2017-04-26] MEDS: Sodium Chloride 0.9% 1,000 ML IV SCH (06:53)
[2017-04-26] MEDS: Levalbuterol 0.63 MG/3 ML Inhal Soln UD INH SCH ×3 (07:17→23:48)
[2017-04-26 07:39] LABS: BASO % 0.2 % (0.0-2.0); EOS # 0.1 K/uL (0.0-0.7); EOS % 1.3 % (0.0-4.0); HEMOGLOBIN 10.4 g/dL (12.0-16.0); LYMPH # 0.3 K/uL (1.0-4.3); LYMPH % 4.8 % (20.0-40.0); MEAN CORPUSCULAR HEMOGLOBIN 32.7 pg (27.0-31.0); MEAN CORPUSCULAR HGB CONC 32.7 g/dL (33.0-37.0); MEAN PLATELET VOLUME 10.5 fl (7.2-11.7); MONO # 0.9 K/uL (0.0-0.8); NEUT # 5.3 K/uL (1.8-7.0); NEUT % 80.7 % (50.0-75.0); NRBC % 0.1 % (0.0-0.0); RBC 3.19 Mil/uL (3.80-5.20); WHITE BLOOD COUNT 6.6 K/uL (4.8-10.8)
[2017-04-26 07:47] LABS: ALB/GLOB RATIO 1.1 (1.0-2.1); ALBUMIN 3.3 g/dL (3.5-5.0); CALCIUM 8.4 mg/dL (8.4-10.2)
[2017-04-26] MEDS: Multivitamin With Minerals Tab PO SCH (09:55)
[2017-04-26] MEDS: Pantoprazole 40 mg EC Tab PO SCH (09:55)
[2017-04-26] MEDS: Patient's Own Med (Cyclosporine [Restasis] 1 DROP) BOTHEYES SCH ×2 (14:50→17:39)
--- NOTE | 2017-04-26 15:27 | US ---
PROCEDURE: HISTORY: RLQ DISCOMFORT COMPARISON: TECHNIQUE: FINDINGS: Suprapubic catheter is in place. The uterus is not well visualized. It measures grossly 5.8 x 4.3 x 4.0 centimeters. The ovaries are not identified. No gross free fluid the pelvis. IMPRESSION: Suprapubic catheter in place. Uterus grossly unremarkable.
--- NOTE | 2017-04-26 18:40 | CP.PCM.PN ---
Subjective - Date & Time of Evaluation Date of Evaluation: 04/26/17 Time of Evaluation: 18:33 - Subjective Subjective: I D NOTE BLOOD AND URINE CULTURE ARE BOTH POSITIVE FOR E.COLI C [place] SENSITIVITIES FOR MOST ANTIBIOTICS FOR PRESENT WILL D/C MEROPENEM ,START CEFTRIAXONE BUT WILL CONTINUE POLY ANTIBIOTIC COVERAGE SHE HAS DEVELOPED STAGE II ULCER ON LEFT BUTTOCK (SACRUM) AND WANT TO MAINTAIN ADDITIONAL COVERAGE.HAVE ALSO ORDERED HILL ROM P500 BED (DISCUSSED C WOUND CARE NURSING i.e GOLDIE KRUEGER) SHE IS AFEBRILE TODAY WBC:6.6,PLATELETS:94(HAVE INCREASED),POLYS:80 CREATININE:1.3,GFR:39,BLOOD GLUCOSE ARE ALL OVER 200,HgbA1C:7.7 WILL LIKELY NEED TO START RX FOR DM US(ABDOMEN&PELVIS) REVIEWED , OF NOTE,IN REGARD TO PELVIS SHE HAS HAD NEMESIO Objective - Vital Signs/Intake and Output Vital Signs (last 24 hours): Temp Pulse Resp BP Pulse Ox 97.5 F L 72 20 98/58 L 100 04/26/17 16:42 04/26/17 17:38 04/26/17 16:42 04/26/17 17:38 04/26/17 16:42 - Medications Medications: Current Medications Al Hydrox/Mg Hydrox/Simethicone (Maalox Plus 30 Ml) 30 ml PO Q4 PRN PRN Reason: Indigestion / Heartburn Apixaban (Eliquis) 2.5 mg PO BID [facility] PRN Reason: Protocol Last Admin: 04/26/17 17:38 Dose: 2.5 mg Carvedilol (Coreg) 3.125 mg PO BID [facility] Last Admin: 04/26/17 17:38 Dose: Not Given Ferrous Sulfate (Feosol) 325 mg PO BID [facility] Last Admin: 04/26/17 17:38 Dose: 325 mg Home Med (Cyclosporine [Restasis]) 1 drop BOTHEYES BID [facility] Last Admin: 04/26/17 17:39 Dose: Not Given Piperacillin Sod/Tazobactam (Sod 2.25 gm/ Sodium Chloride) 100 mls @ 100 mls/ hr IVPB Q8@0600,1400,2200 [facility] Last Admin: 04/26/17 14:51 Dose: 100 mls/hr Meropenem 500 mg/ Sodium (Chloride) 100 mls @ 100 mls/hr IVPB Q12@0000,1200 [facility] Last Admin: 04/26/17 14:50 Dose: 100 mls/hr Levalbuterol HCl (Xopenex) 0.63 mg INH RQ8 [facility] Last Admin: 04/26/17 15:21 Dose: 0.63 mg Multivitamins/Minerals (Therapeutic-M Tab) 1 tab PO DAILY [facility] Last Admin: 04/26/17 09:55 Dose: 1 tab Pantoprazole Sodium (Protonix Ec Tab) 40 mg PO DAILY [facility] Last Admin: 04/26/17 09:55 Dose: 40 mg - Labs Labs: 04/26/17 06:00 04/26/17 06:00 PT 18.8 Seconds (9.8-13.1) H 04/23/17 19:20 INR 1.8 (0.9-1.2) H 04/23/17 19:20
[2017-04-27] MEDS: Levalbuterol 0.63 MG/3 ML Inhal Soln UD INH SCH ×2 (07:52→15:56)
[2017-04-27 08:12] LABS: HEMOGLOBIN 10.7 g/dL (12.0-16.0); MEAN CELL VOLUME 101.3 fl (81.0-99.0); MEAN CORPUSCULAR HEMOGLOBIN 32.9 pg (27.0-31.0); MEAN CORPUSCULAR HGB CONC 32.5 g/dL (33.0-37.0); RBC 3.26 Mil/uL (3.80-5.20); RED CELL DISTRIBUTION WIDTH 15.9 % (11.5-14.5); WHITE BLOOD COUNT 9.7 K/uL (4.8-10.8)
[2017-04-27 08:19] LABS: ALB/GLOB RATIO 1.1 (1.0-2.1); ALBUMIN 3.4 g/dL (3.5-5.0); CALCIUM 8.9 mg/dL (8.4-10.2)
[2017-04-27] MEDS: cefTRIAXone 2 GM in Sodium Chloride 0.9% 100 ML IVPB SCH (10:18)
[2017-04-27] MEDS: Pantoprazole 40 mg EC Tab PO SCH (10:19)
[2017-04-27] MEDS: Multivitamin With Minerals Tab PO SCH (10:20)
--- NOTE | 2017-04-27 10:45 | CP.PCM.PN ---
Subjective - Date & Time of Evaluation Date of Evaluation: 04/27/17 Time of Evaluation: 10:00 - Subjective Subjective: Pt offers no complaints afebrile Dr Chaparro's note appreciated Blood and Urine cultures + E Coli on antibiotic as per Dr Chaparro Objective - Vital Signs/Intake and Output Vital Signs (last 24 hours): Temp Pulse Resp BP Pulse Ox 98.5 F 76 20 134/81 98 04/27/17 08:00 04/27/17 10:20 04/27/17 08:00 04/27/17 10:20 04/27/17 08:00 Intake and Output: 04/27/17 04/27/17 06:59 18:59 Intake Total 800 1120 Output Total 380 400 Balance 420 720 - Medications Medications: Current Medications Al Hydrox/Mg Hydrox/Simethicone (Maalox Plus 30 Ml) 30 ml PO Q4 PRN PRN Reason: Indigestion / Heartburn Apixaban (Eliquis) 2.5 mg PO BID [facility] PRN Reason: Protocol Last Admin: 04/27/17 10:19 Dose: 2.5 mg Carvedilol (Coreg) 3.125 mg PO BID [facility] Last Admin: 04/27/17 10:20 Dose: 3.125 mg Ferrous Sulfate (Feosol) 325 mg PO BID [facility] Last Admin: 04/27/17 10:19 Dose: 325 mg Home Med (Cyclosporine [Restasis]) 1 drop BOTHEYES BID [facility] Last Admin: 04/26/17 17:39 Dose: Not Given Piperacillin Sod/Tazobactam (Sod 2.25 gm/ Sodium Chloride) 100 mls @ 100 mls/ hr IVPB Q8@0600,1400,2200 [facility] Last Admin: 04/27/17 06:17 Dose: 100 mls/hr Ceftriaxone Sodium 2 gm/ (Sodium Chloride) 100 mls @ 100 mls/hr IVPB DAILY [facility] Last Admin: 04/27/17 10:18 Dose: 100 mls/hr Levalbuterol HCl (Xopenex) 0.63 mg INH RQ8 [facility] Last Admin: 04/27/17 07:52 Dose: 0.63 mg Multivitamins/Minerals (Therapeutic-M Tab) 1 tab PO DAILY [facility] Last Admin: 04/27/17 10:20 Dose: 1 tab Pantoprazole Sodium (Protonix Ec Tab) 40 mg PO DAILY [facility] Last Admin: 04/27/17 10:19 Dose: 40 mg - Labs Labs: 04/27/17 05:30 04/27/17 05:30 PT 18.8 Seconds (9.8-13.1) H 04/23/17 19:20 INR 1.8 (0.9-1.2) H 04/23/17 19:20
[2017-04-27] MEDS: Patient's Own Med (Cyclosporine [Restasis] 1 DROP) BOTHEYES SCH ×3 (10:58→22:21)
[2017-04-27] MEDS ORDERED: Sodium Chloride 0.9% 1,000 ML IV SCH (18:00)
[2017-04-27] MEDS: Sodium Chloride 0.9% 1,000 ML IV SCH (18:47)
[2017-04-27] MEDS ORDERED: TAFLUPROST 0.0015% PO SCH (22:00)
[2017-04-27] MEDS: TIMOLOL OU SCH (22:26)
[2017-04-27] MEDS: DORZOLAMIDE OU SCH (22:26)
[2017-04-27] MEDS: TAFLUPROST 0.0015% OU SCH (23:04)
[2017-04-28 06:36] LABS: HEMOGLOBIN 9.7 g/dL (12.0-16.0); MEAN CELL VOLUME 101.7 fl (81.0-99.0); MEAN CORPUSCULAR HEMOGLOBIN 32.8 pg (27.0-31.0); MEAN CORPUSCULAR HGB CONC 32.3 g/dL (33.0-37.0); RBC 2.95 Mil/uL (3.80-5.20); RED CELL DISTRIBUTION WIDTH 15.9 % (11.5-14.5); WHITE BLOOD COUNT 6.9 K/uL (4.8-10.8)
[2017-04-28 06:53] LABS: ALBUMIN 3.1 g/dL (3.5-5.0); ALT/SGPT 39 U/L (9-52); AST/SGOT 23 U/L (14-36); BLOOD UREA NITROGEN 29 mg/dl (7-17); CALCIUM 8.7 mg/dL (8.4-10.2); GFR AFRICAN-AMERICAN > 60; GFR NON-AFRICAN AMERICAN 52
[2017-04-28] MEDS: Levalbuterol 0.63 MG/3 ML Inhal Soln UD INH SCH ×2 (08:14→19:19)
--- NOTE | 2017-04-28 08:43 | CP.PCM.PN ---
Subjective - Date & Time of Evaluation Date of Evaluation: 04/28/17 Time of Evaluation: 08:15 - Subjective Subjective: Sitting OOB, readily recognised me Afebrile A Fib with VVI paced rhythm BP 124/74 mm Hg PICC line in place (Mild bleeding at PICC site due to Eliquis+ Thrombocytopenia) Chest clear, no rales Apical syst murmur of MR+ Redness on sacral area Labs show Hb 9.7 Gms/ PLTLT count 83K (after rising for 2 days) BUN/Creatinin continues to improve (29mg/1.0mg) K+4.4mEq/L Will follow CBC to monitor PLTLT count (Emipenem was D/Joe 2 days back) Eliquis is held till Pltlt count stabilises Pt awaits a bed in TCU Objective - Vital Signs/Intake and Output Vital Signs (last 24 hours): Temp Pulse Resp BP Pulse Ox 97.7 F 76 20 132/75 98 04/28/17 08:00 04/28/17 08:00 04/28/17 08:00 04/28/17 08:00 04/28/17 08:00 Intake and Output: 04/28/17 04/28/17 06:59 18:59 Intake Total 700 Output Total 300 Balance 400 - Medications Medications: Current Medications Al Hydrox/Mg Hydrox/Simethicone (Maalox Plus 30 Ml) 30 ml PO Q4 PRN PRN Reason: Indigestion / Heartburn Carvedilol (Coreg) 3.125 mg PO BID [facility] Last Admin: 04/27/17 17:40 Dose: 3.125 mg Ferrous Sulfate (Feosol) 325 mg PO BID [facility] Last Admin: 04/27/17 17:40 Dose: 325 mg Home Med (Cyclosporine [Restasis]) 1 drop BOTHEYES BID [facility] Last Admin: 04/27/17 22:21 Dose: 1 drop Home Med (Patient's Own Medication) 1 unit OU BID [facility] Last Admin: 04/27/17 22:26 Dose: 1 unit Home Med (Patient's Own Medication) 1 unit OU HS [facility] Last Admin: 04/27/17 23:04 Dose: 1 unit Piperacillin Sod/Tazobactam (Sod 2.25 gm/ Sodium Chloride) 100 mls @ 100 mls/ hr IVPB Q8@0600,1400,2200 [facility] Last Admin: 04/28/17 04:59 Dose: 100 mls/hr Ceftriaxone Sodium 2 gm/ (Sodium Chloride) 100 mls @ 100 mls/hr IVPB DAILY [facility] Last Admin: 04/27/17 10:18 Dose: 100 mls/hr Sodium Chloride (Sodium Chloride 0.9%) 1,000 mls @ 50 mls/hr IV .Q20H [facility] Stop: 04/28/17 17:53 Last Admin: 04/27/17 18:47 Dose: 50 mls/hr Levalbuterol HCl (Xopenex) 0.63 mg INH RQ8 [facility] Last Admin: 04/28/17 08:14 Dose: 0.63 mg Metformin HCl (Glucophage) 500 mg PO BIDWM [facility] Multivitamins/Minerals (Therapeutic-M Tab) 1 tab PO DAILY [facility] Last Admin: 04/27/17 10:20 Dose: 1 tab Pantoprazole Sodium (Protonix Ec Tab) 40 mg PO DAILY [facility] Last Admin: 04/27/17 10:19 Dose: 40 mg - Labs Labs: 04/28/17 05:45 04/28/17 05:45 PT 18.8 Seconds (9.8-13.1) H 04/23/17 19:20 INR 1.8 (0.9-1.2) H 04/23/17 19:20
[2017-04-28] MEDS: Patient's Own Med (Cyclosporine [Restasis] 1 DROP) BOTHEYES SCH ×2 (08:59→17:27)
[2017-04-28] MEDS: Multivitamin With Minerals Tab PO SCH (09:01)
[2017-04-28] MEDS: Pantoprazole 40 mg EC Tab PO SCH (09:02)
[2017-04-28] MEDS: cefTRIAXone 2 GM in Sodium Chloride 0.9% 100 ML IVPB SCH (09:02)
--- NOTE | 2017-04-28 09:48 | CP.PCM.PN ---
Subjective - Date & Time of Evaluation Date of Evaluation: 04/28/17 Time of Evaluation: 09:46 - Subjective Subjective: Seated in bedside chair eating breakfast. Appears comfortable at rest. Pleasant mood, forgetful. Offers no complaint of SOB. Platelets down to 83, no elevated WBC. Renal function is stable. Vital signs remain stable. Breath sounds are present bilaterally. No audible wheezing or bronchial breathing. Few dry basal rales posteriorly. No cyanosis. Stable respiratory status. Thrombocytopenia. Objective - Vital Signs/Intake and Output Vital Signs (last 24 hours): Temp Pulse Resp BP Pulse Ox 97.7 F 76 20 132/75 98 04/28/17 08:00 04/28/17 09:01 04/28/17 08:00 04/28/17 09:01 04/28/17 08:00 Intake and Output: 04/27/17 04/28/17 23:59 11:59 Intake Total 900 700 Output Total 450 300 Balance 450 400 - Medications Medications: Current Medications Al Hydrox/Mg Hydrox/Simethicone (Maalox Plus 30 Ml) 30 ml PO Q4 PRN PRN Reason: Indigestion / Heartburn Carvedilol (Coreg) 3.125 mg PO BID [facility] Last Admin: 04/28/17 09:01 Dose: 3.125 mg Ferrous Sulfate (Feosol) 325 mg PO BID [facility] Last Admin: 04/28/17 09:01 Dose: 325 mg Home Med (Cyclosporine [Restasis]) 1 drop BOTHEYES BID [facility] Last Admin: 04/28/17 08:59 Dose: 1 drop Home Med (Patient's Own Medication) 1 unit OU BID [facility] Last Admin: 04/27/17 22:26 Dose: 1 unit Home Med (Patient's Own Medication) 1 unit OU HS [facility] Last Admin: 04/27/17 23:04 Dose: 1 unit Piperacillin Sod/Tazobactam (Sod 2.25 gm/ Sodium Chloride) 100 mls @ 100 mls/ hr IVPB Q8@0600,1400,2200 [facility] Last Admin: 04/28/17 04:59 Dose: 100 mls/hr Ceftriaxone Sodium 2 gm/ (Sodium Chloride) 100 mls @ 100 mls/hr IVPB DAILY [facility] Last Admin: 04/28/17 09:02 Dose: 100 mls/hr Sodium Chloride (Sodium Chloride 0.9%) 1,000 mls @ 50 mls/hr IV .Q20H [facility] Stop: 04/28/17 17:53 Last Admin: 04/27/17 18:47 Dose: 50 mls/hr Levalbuterol HCl (Xopenex) 0.63 mg INH RQ8 [facility] Last Admin: 04/28/17 08:14 Dose: 0.63 mg Metformin HCl (Glucophage) 500 mg PO BIDWM [facility] Last Admin: 04/28/17 09:31 Dose: 500 mg Multivitamins/Minerals (Therapeutic-M Tab) 1 tab PO DAILY [facility] Last Admin: 04/28/17 09:01 Dose: 1 tab Pantoprazole Sodium (Protonix Ec Tab) 40 mg PO DAILY [facility] Last Admin: 04/28/17 09:02 Dose: 40 mg - Labs Labs: 04/28/17 05:45 04/28/17 05:45 PT 18.8 Seconds (9.8-13.1) H 04/23/17 19:20 INR 1.8 (0.9-1.2) H 04/23/17 19:20 Assessment and Plan (1) Sepsis Status: Acute (2) UTI (urinary tract infection) Status: Acute (3) COPD (chronic obstructive pulmonary disease) Status: Chronic (4) Cardiomyopathy Status: Chronic
[2017-04-28] MEDS: DORZOLAMIDE OU SCH ×2 (12:51→17:27)
[2017-04-28] MEDS: TIMOLOL OU SCH ×2 (12:51→17:27)
--- NOTE | 2017-04-28 13:20 | VASCULAR ---
PROCEDURE: Date of procedure: 04/25/2017 Procedure: 1. Placement of a right arm PICC with ultrasound and fluoroscopic guidance, CPT 40786 2. PICC tip confirmation with spot radiograph and is in the superior vena cava Medications: 4cc 1 percent lidocaine Total Fluoro time: 9.1 seconds Radiation: 0.48 MGy EBL: 2 cc HISTORY: Poor venous access TECHNIQUE: Following informed consent and procedure time-out, the patient was placed supine on the interventional table and the right arm prepped and draped in the usual sterile fashion. Ultrasound showed a patent and compressible right basilic vein. After the skin was anesthetized with lidocaine, the basilic vein was accessed with micro micropuncture technique using ultrasound guidance. A guidewire was then advanced under fluoroscopic guidance into the superior vena cava. An image documenting ultrasound guidance for vascular access was permanently saved. The length of the single-lumen 4 English PICC was trimmed to 35 centimeters and advanced through a peel-away sheath. The PICC was position with tip of PICC confirm a spot radiograph the superior vena cava. The PICC was secured to the patient's skin. The PICC was flushed. A biopatch and sterile dressing was applied. IMPRESSION: Placement of a single-lumen 4 English PICC trimmed to 35 centimeters via right basilic vein. The tip of the PICC is confirmed with spot radiograph and is in the superior vena cava.
[2017-04-28] MEDS: Sodium Chloride 0.9% 1,000 ML IV SCH (18:37)
[2017-04-28] MEDS: TAFLUPROST 0.0015% OU SCH (22:13)
[2017-04-29] MEDS: Levalbuterol 0.63 MG/3 ML Inhal Soln UD INH SCH ×4 (00:57→17:19)
[2017-04-29 07:20] LABS: HEMOGLOBIN 10.5 g/dL (12.0-16.0); MEAN CORPUSCULAR HEMOGLOBIN 32.8 pg (27.0-31.0); MEAN CORPUSCULAR HGB CONC 32.5 g/dL (33.0-37.0); RBC 3.2 Mil/uL (3.80-5.20); WHITE BLOOD COUNT 6.8 K/uL (4.8-10.8)
[2017-04-29 07:27] LABS: ALB/GLOB RATIO 1.1 (1.0-2.1); ALBUMIN 3.2 g/dL (3.5-5.0); ALT/SGPT 34 U/L (9-52); AST/SGOT 25 U/L (14-36); BLOOD UREA NITROGEN 24 mg/dl (7-17); CALCIUM 8.8 mg/dL (8.4-10.2); GFR AFRICAN-AMERICAN > 60; GFR NON-AFRICAN AMERICAN 52
--- NOTE | 2017-04-29 08:39 | CP.PCM.PN ---
Subjective - Date & Time of Evaluation Date of Evaluation: 04/29/17 Time of Evaluation: 08:37 - Subjective Subjective: urology pt seen today and advised that hassan will be removed today will check post void residual later today Objective - Vital Signs/Intake and Output Vital Signs (last 24 hours): Temp Pulse Resp BP Pulse Ox 97.5 F L 77 18 142/69 93 L 04/29/17 08:00 04/29/17 08:00 04/29/17 08:00 04/29/17 08:00 04/29/17 08:00 - Medications Medications: Current Medications Al Hydrox/Mg Hydrox/Simethicone (Maalox Plus 30 Ml) 30 ml PO Q4 PRN PRN Reason: Indigestion / Heartburn Apixaban (Eliquis) 5 mg PO BID [facility] PRN Reason: Protocol Carvedilol (Coreg) 3.125 mg PO BID [facility] Last Admin: 04/28/17 17:26 Dose: 3.125 mg Ferrous Sulfate (Feosol) 325 mg PO BID [facility] Last Admin: 04/28/17 17:26 Dose: 325 mg Home Med (Cyclosporine [Restasis]) 1 drop BOTHEYES BID [facility] Last Admin: 04/28/17 17:27 Dose: 1 drop Home Med (Patient's Own Medication) 1 unit OU BID [facility] Last Admin: 04/28/17 17:27 Dose: 1 unit Home Med (Patient's Own Medication) 1 unit OU HS [facility] Last Admin: 04/28/17 22:13 Dose: Not Given Piperacillin Sod/Tazobactam (Sod 2.25 gm/ Sodium Chloride) 100 mls @ 100 mls/ hr IVPB Q8@0600,1400,2200 [facility] Last Admin: 04/29/17 05:19 Dose: 100 mls/hr Ceftriaxone Sodium 2 gm/ (Sodium Chloride) 100 mls @ 100 mls/hr IVPB DAILY [facility] Last Admin: 04/28/17 09:02 Dose: 100 mls/hr Levalbuterol HCl (Xopenex) 0.63 mg INH RQ8 [facility] Last Admin: 04/29/17 08:02 Dose: 0.63 mg Metformin HCl (Glucophage) 500 mg PO BIDWM [facility] Last Admin: 04/28/17 17:26 Dose: 500 mg Multivitamins/Minerals (Therapeutic-M Tab) 1 tab PO DAILY [facility] Last Admin: 04/28/17 09:01 Dose: 1 tab Pantoprazole Sodium (Protonix Ec Tab) 40 mg PO DAILY [facility] Last Admin: 04/28/17 09:02 Dose: 40 mg - Labs Labs: 04/29/17 06:15 04/29/17 06:20 PT 18.8 Seconds (9.8-13.1) H 04/23/17 19:20 INR 1.8 (0.9-1.2) H 04/23/17 19:20
[2017-04-29] MEDS: DORZOLAMIDE OU SCH ×2 (09:06→16:30)
[2017-04-29] MEDS: TIMOLOL OU SCH ×2 (09:06→16:30)
[2017-04-29] MEDS: Pantoprazole 40 mg EC Tab PO SCH (09:07)
[2017-04-29] MEDS: Multivitamin With Minerals Tab PO SCH (09:08)
[2017-04-29] MEDS: Patient's Own Med (Cyclosporine [Restasis] 1 DROP) BOTHEYES SCH ×2 (09:08→16:30)
--- NOTE | 2017-04-29 09:08 | CP.PCM.PN ---
Subjective - Date & Time of Evaluation Date of Evaluation: 04/29/17 Time of Evaluation: 08:40 - Subjective Subjective: Afebrile, sitting up eating breakfast, with son in attendance A fib with VVI paced rhythm BP 110/70 mm Hg JVP flat, few basal rales No gallop, Apical syst murmur of MR+ PLTLT count now 117K Will restart Eliquis Mackey to come out today Await TCU bed Objective - Vital Signs/Intake and Output Vital Signs (last 24 hours): Temp Pulse Resp BP Pulse Ox 97.5 F L 77 18 142/69 93 L 04/29/17 08:00 04/29/17 08:00 04/29/17 08:00 04/29/17 08:00 04/29/17 08:00 - Medications Medications: Current Medications Al Hydrox/Mg Hydrox/Simethicone (Maalox Plus 30 Ml) 30 ml PO Q4 PRN PRN Reason: Indigestion / Heartburn Apixaban (Eliquis) 5 mg PO BID [facility] PRN Reason: Protocol Carvedilol (Coreg) 3.125 mg PO BID [facility] Last Admin: 04/28/17 17:26 Dose: 3.125 mg Ferrous Sulfate (Feosol) 325 mg PO BID [facility] Last Admin: 04/28/17 17:26 Dose: 325 mg Furosemide (Lasix) 20 mg PO DAILY [facility] Home Med (Cyclosporine [Restasis]) 1 drop BOTHEYES BID [facility] Last Admin: 04/28/17 17:27 Dose: 1 drop Home Med (Patient's Own Medication) 1 unit OU BID [facility] Last Admin: 04/28/17 17:27 Dose: 1 unit Home Med (Patient's Own Medication) 1 unit OU HS [facility] Last Admin: 04/28/17 22:13 Dose: Not Given Piperacillin Sod/Tazobactam (Sod 2.25 gm/ Sodium Chloride) 100 mls @ 100 mls/ hr IVPB Q8@0600,1400,2200 [facility] Last Admin: 04/29/17 05:19 Dose: 100 mls/hr Ceftriaxone Sodium 2 gm/ (Sodium Chloride) 100 mls @ 100 mls/hr IVPB DAILY [facility] Last Admin: 04/28/17 09:02 Dose: 100 mls/hr Levalbuterol HCl (Xopenex) 0.63 mg INH RQ8 [facility] Last Admin: 04/29/17 08:02 Dose: 0.63 mg Metformin HCl (Glucophage) 500 mg PO BIDWM [facility] Last Admin: 04/28/17 17:26 Dose: 500 mg Multivitamins/Minerals (Therapeutic-M Tab) 1 tab PO DAILY [facility] Last Admin: 04/28/17 09:01 Dose: 1 tab Pantoprazole Sodium (Protonix Ec Tab) 40 mg PO DAILY [facility] Last Admin: 04/28/17 09:02 Dose: 40 mg - Labs Labs: 04/29/17 06:15 04/29/17 06:20 PT 18.8 Seconds (9.8-13.1) H 04/23/17 19:20 INR 1.8 (0.9-1.2) H 04/23/17 19:20
[2017-04-29] MEDS: cefTRIAXone 2 GM in Sodium Chloride 0.9% 100 ML IVPB SCH (09:19)
--- NOTE | 2017-04-29 10:29 | RAD ---
HISTORY: COPD COMPARISON: 04/23/2017 FINDINGS: The right PICC line terminates in the SVC. LUNGS: There is persistent pulmonary venous congestion. There is airspace disease in the right lower lobe. PLEURA: There is a small right pleural effusion. No pneumothorax. CARDIOVASCULAR: The heart remains enlarged with prominent central vasculature. There is stable position of left-sided dual lead transvenous permanent pacing device. OSSEOUS STRUCTURES: No significant abnormalities. VISUALIZED UPPER ABDOMEN: Normal. OTHER FINDINGS: None. IMPRESSION: Suspect right lower lobe pneumonia and small right pleural effusion. Follow-up is advised.
[2017-04-29 12:46] VITALS: TEMP 97.4; O2SAT 100
[2017-04-29 15:44] VITALS: BP 117/65; PULSE 76; RESP 20
== END 2017-04-29 18:13 | DRG 872 ==
LOC: H.ER 18:38 → H.ERHOLD 19:49 → H.TEL 23:04
PROVIDERS: ADMIT Internal Medicine Cardiovascular Disease; ATTEND Internal Medicine Cardiovascular Disease
PROC: 02HV33Z Insertion of Infusion Device into Superior Vena Cava, Percutaneous Approach (ICD-10-PCS; principal; 2017-04-28)
PROC: B548ZZA Ultrasonography of Superior Vena Cava, Guidance (ICD-10-PCS; 2017-04-28)
DX: A41.51 Sepsis due to Escherichia coli [E. coli] (principal); L89.322 Pressure ulcer of left buttock, stage 2; I42.9 Cardiomyopathy, unspecified; I11.0 Hypertensive heart disease with heart failure; D69.6 Thrombocytopenia, unspecified; I48.2 Chronic atrial fibrillation; I50.22 Chronic systolic (congestive) heart failure; F03.90 Unspecified dementia, unspecified severity, without behavioral disturbance, psychotic disturbance, mood disturbance, and anxiety; N39.0 Urinary tract infection, site not specified; J44.9 Chronic obstructive pulmonary disease, unspecified; E86.0 Dehydration; I34.0 Nonrheumatic mitral (valve) insufficiency; I25.10 Atherosclerotic heart disease of native coronary artery without angina pectoris; Z95.810 Presence of automatic (implantable) cardiac defibrillator; Z87.891 Personal history of nicotine dependence; H54.7 Unspecified visual loss; H40.9 Unspecified glaucoma; H35.30 Unspecified macular degeneration; Z95.1 Presence of aortocoronary bypass graft; I25.2 Old myocardial infarction

== ENCOUNTER 2017-04-29 15:53 | Inpatient (IN) | payer OTHER ==
[2017-04-29 18:25] VITALS: BMI 25.4
[2017-04-29 20:14] VITALS: RESP 20
[2017-04-29] MEDS ORDERED: Alum-Mag Hydrox-Simethicone Susp (30 mL) PO PRN (21:19)
[2017-04-29] MEDS: TAFLUPROST EACHEYE SCH (22:22)
[2017-04-29] MEDS: Levalbuterol 0.63 MG/3 ML Inhal Soln UD INH SCH (23:51)
[2017-04-30] MEDS ORDERED: Piperacillin/Tazobact 2.25 gm Inj IVPB SCH
[2017-04-30] MEDS ORDERED: cefTRIAXone (Rocephin) 2 gm Inj IVPB SCH (05:00)
[2017-04-30] MEDS: cefTRIAXone 2 GM in Sodium Chloride 0.9% 100 ML IVPB SCH (05:08)
[2017-04-30] MEDS: Insulin Regular 100 units/ml SC SCH ×4 (06:54→21:51)
--- NOTE | 2017-04-30 06:56 | CON ---
ENDOCRINOLOGY CONSULT The patient is seen in room 711, TCU. HISTORY OF PRESENT ILLNESS: This is an 87-year-old female with known history of type 2 diabetes, hypertension, significant cardiac vasculopathy who has been transferred to TCU for ongoing IV antibiotics, following a recent UTI and bacteremia and is now being referred for diabetic evaluation and management. PAST MEDICAL HISTORY: As mentioned above, history of type 2 diabetes currently on metformin given as 500 mg b.i.d. with meals. Her A1c has been reported at 7.7%. History of hypertension and dyslipidemia, history of coronary artery disease with previous myocardial infarction and subsequent coronary artery bypass graft surgery has undertaken. She also had an insertion of an AICD device and is being followed closely for hemodynamic monitoring. History of chronic obstructive lung disease from previous nicotine dependence, also previous admissions for congestive heart failure as noted thereof. She also had chronic anemia, has received blood transfusions related to recurrent GI bleeding. At this time, she also has chronic atrial fibrillation and on Eliquis oral anticoagulation therapy at this time. She has received a previous AV node ablation also as noted. 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 FAMILY HISTORY: Positive for hypertension and diabetes. SOCIAL HISTORY: Patient has supportive family. Also history of significant nicotine dependence for over 20 years. No other known substance use. REVIEW OF SYSTEMS: As mentioned above, admits to generalized body weakness with easy fatigability and tiredness and suboptimal energy level. Also admits to episodic dizziness and lightheadedness worse in the last few days prior to admission. No chest pains or palpitations although admits to progressive shortness of breath especially on exertion with recent paroxysmal nocturnal dyspnea. Her oral intake has been variable and suboptimal with nausea, dyspepsia and vague upper abdominal pain with habitual constipation. PHYSICAL EXAMINATION GENERAL: This is an average built female, in no apparent distress. VITAL SIGNS: Blood pressure is 140/80, pulse of 70 beats per minute and regular, temperature 99 and respirations 20. Height is 5 feet 1 inches, weight is 135 pounds. HEENT: Head normocephalic. Eyes anicteric with pink conjunctivae. Funduscopy not possible at this time. Ears, nose and throat otherwise normal. NECK: Supple. Thyroid gland is normal size. There is no carotid bruits or cervical adenopathy. CARDIOPULMONARY: Adynamic precordium. S1 and S2 is rapid and irregular. LUNGS: Showing scattered rhonchi. ABDOMEN: Flat, soft and positive bowel sounds. EXTREMITIES: Just +1 bipedal edema. Pulses are +2 bilaterally. LABORATORY DATA: Her chemistry showed a BUN of 24, sodium 142, potassium 4.4, chloride 110, CO2 of 24, glucose 126 and creatinine 1.0. Her proBNP is 6140. Her hemoglobin A1c is 7.7%. ASSESSMENT: This is an 87-year-old female with known history of type 2 diabetes controlled on oral hypoglycemic therapy with optimal metabolic control as noted and thus presented here with urinary tract infection and bacteremia with ongoing IV antibiotic management as noted. She also has significant cardiac vasculopathy with coronary artery disease and previous coronary artery bypass graft surgery and subsequent placement of an automatic implantable cardioverter-defibrillator device. Moreover, she also has chronic atrial fibrillation with ongoing oral anticoagulation therapy as mentioned. She also has underlying chronic obstructive pulmonary disease related to previous nicotine dependence as noted. PLAN: Plan of management as discussed with patient and staff. We will modify her current oral hypoglycemic therapy. If hyperglycemic level supervene as noted with her advanced age and underlying history of congestive heart failure, would prudently shy away from metformin therapy and also with impaired GFR despite normal renal function as noted in the light of advanced age and expected reduction of GFR as noted. We will add glipizide given as 5 mg p.o. b.i.d. before meals and if hyperglycemic level persists, we will consider the addition of Januvia given as 50 mg once daily as indicated. We will also check the thyroid studies and serial chemistries and supplemented accordingly as needed. Lauryn Chandra MD
[2017-04-30 07:22] LABS: HEMATOCRIT 28.8 % (34.0-47.0); MEAN CELL VOLUME 100.6 fl (81.0-99.0); MEAN CORPUSCULAR HEMOGLOBIN 32.4 pg (27.0-31.0); MEAN CORPUSCULAR HGB CONC 32.2 g/dL (33.0-37.0); RED CELL DISTRIBUTION WIDTH 16.2 % (11.5-14.5); WHITE BLOOD COUNT 7.5 K/uL (4.8-10.8)
[2017-04-30] MEDS: Levalbuterol 0.63 MG/3 ML Inhal Soln UD INH SCH ×2 (07:35→16:29)
[2017-04-30 07:49] LABS: ALKALINE PHOSPHATASE 104 U/L (38-126); ALT/SGPT 36 U/L (9-52); AST/SGOT 24 U/L (14-36); BILIRUBIN,TOTAL 0.3 mg/dl (0.2-1.3); BLOOD UREA NITROGEN 21 mg/dl (7-17); CALCIUM 8.8 mg/dL (8.4-10.2); CARBON DIOXIDE 22 mmol/L (22-30); CHLORIDE 111 mmol/L (98-107); GFR AFRICAN-AMERICAN > 60; GLUCOSE,RANDOM 152 mg/dL (65-105); POTASSIUM 4.4 MMOL/L (3.6-5.0); SODIUM 141 mmol/l (132-148); TOTAL PROTEIN 6.1 G/DL (6.3-8.2)
[2017-04-30 08:20] LABS: THYROID STIMULATING HORMONE 3.12 mIU/ML (0.46-4.68)
[2017-04-30] MEDS: Patient's Own Med (Dorzolamide 2%/Timolol 0.5% [Cosopt 2%-0.5% Opht] 1 DROP) EACHEYE SCH ×2 (09:07→17:57)
[2017-04-30] MEDS: Patient's Own Med (Cyclosporine [Restasis] 1 DROP) BOTHEYES SCH ×2 (09:07→17:56)
[2017-04-30] MEDS: Pantoprazole 40 mg EC Tab PO SCH (09:10)
[2017-04-30] MEDS: Multivitamin With Minerals Tab PO SCH (09:12)
--- NOTE | 2017-04-30 10:11 | CP.PCM.HP ---
History of Present Illness - History of Present Illness History of Present Illness: This 87-year-old female is in the transitional care unit after a brief period in the acute care section of the hospital where she was admitted for urosepsis. The patient has a long medical history which includes coronary artery disease. She suffered her first myocardial infarction in 1986. She subsequently had a cardiac arrest in 1992 and was revived followed by coronary bypass graft surgery and insertion of an AICD. The patient subsequently has had multiple revisions of her AICD. She eventually developed atrial fibrillation and underwent AV node ablation as part of its treatment with a VVI pacemaker. She has been chronically anticoagulated and has been on a diabetic as part of treatment for her congestive cardiac failure. She has a long history of smoking and has severe COPD. She also has developed dementia. As a result of this she has an unsteady gait and had had a fall 3-4 weeks back but did not suffer any bony injury. The patient lives alone and is supervised by her children. She also has glaucoma and has gradually developed worsening vision. During her recent hospitalization she was found to have hyperglycemia and her A1c was 7.7%. She was treated with intravenous antibiotic after bacteremia with gram-negative rods was detected following blood cultures. She has remained afebrile and her acute kidney injury has gradually resolved with replacement of fluids and antibiotic therapy. She had severe thrombocytopenia due to sepsis as well as antibiotic switch with an adjusted and her thrombocytopenia has resolved. On physical examination this is an elderly lady was found lying comfortably in bed, afebrile and alert and awake and recognizes me radially. Her heart rate was 64 bpm and regular and her blood pressure was 112/70 mmHg. Her jugular venous pressure was not elevated there was no pedal edema. There was no carotid bruits and her pedal pulses were feeble but distantly present. There was no central or peripheral cyanosis. Her extremities were warm and nailbeds were pink. A scar of sternotomy was evident. Her first and second heart sounds were normal. There was a long apical systolic murmur of mitral regurgitation there was no S3 gallop there were no rales. Her abdomen was soft and the liver and spleen are not palpable. Her electro-cardiogram showed atrial fibrillation with a VVI paced rhythm. Her lab data shows that her leukocyte count was normal her hemoglobin was 9.3 g and her platelet count was 147,000. Her BUN was 21 mg percent and creatinine was 1 mg percent her electrolytes were normal. Impression: Recent urosepsis (resolving) stable coronary artery disease with status post coronary bypass graft surgery with status post AICD implant. Chronic atrial fibrillation with status post AV node ablation and VVI paced rhythm. Severe COPD. Progressive dementia. Newly diagnosed hyperglycemia/ diabetes mellitus. The patient is in TCU to get her ready for discharge. She will be evaluated by an hotel server before proceeding with a discharge so as to manage her hyperglycemia going forward. Present on Admission - Present on Admission Any Indicators Present on Admission: No Past Patient History - Infectious Disease Hx of Infectious Diseases: None - Tetanus Immunizations Tetanus Immunization: Unknown - Past Medical History & Family History Past Medical History?: Yes - Past Social History Smoking Status: Former Smoker - CARDIAC Hx Atrial Fibrillation: Yes Hx Congestive Heart Failure: Yes Hx Heart Attack: Yes Hx Hypercholesterolemia: Yes Hx Hypertension: Yes Hx Internal Defibrillator: Yes Hx Pacemaker: Yes Hx Peripheral Edema: Yes - PULMONARY Hx Chronic Obstructive Pulmonary Disease (COPD): Yes Other/Comment: current pleural effusion - NEUROLOGICAL Hx Dementia: Yes - HEENT Hx Glaucoma: Yes Hx Macular Degeneration: Yes - RENAL Hx Chronic Kidney Disease: No - ENDOCRINE/METABOLIC Hx Endocrine Disorders: No - HEMATOLOGICAL/ONCOLOGICAL Hx Anemia: Yes Hx Blood Transfusions: Yes Hx Human Immunodeficiency Virus (HIV): No - INTEGUMENTARY Hx Dermatological Problems: No - MUSCULOSKELETAL/RHEUMATOLOGICAL Hx Falls: Yes (fell 2x past mo.) - GASTROINTESTINAL Hx Gastritis: Yes - GENITOURINARY/GYNECOLOGICAL Hx Genitourinary Disorders: No Hx Incontinence: Yes Other/Comment: Current incontinence - PSYCHIATRIC Hx Psychophysiologic Disorder: No Hx Substance Use: No - SURGICAL HISTORY Hx Appendectomy: No Hx Cardiac Catheterization: Yes Hx Coronary Artery Bypass Graft: Yes Other/Comment: w/ pacemaker - ANESTHESIA Hx Anesthesia: Yes Hx Anesthesia Reactions: No Hx Malignant Hyperthermia: No Meds Allergies/Adverse Reactions: Allergies Allergy/AdvReac Type Severity Reaction Status Date / Time Sulfa (Sulfonamide Allergy ITCHING Verified 04/29/17 18:25 Antibiotics) preservatives Allergy Unknown SWELLING Uncoded 10/01/14 15:06 Results - Vital Signs Recent Vital Signs: Last Vital Signs Temp 97.2 F L 04/30/17 08:19 Pulse 77 04/30/17 09:11 Resp 20 04/30/17 08:19 BP 145/73 04/30/17 09:12 Pulse Ox 100 04/30/17 08:19 - Labs Result Diagrams: 04/30/17 06:30 04/30/17 06:30 Labs: Laboratory Results - last 24 hr 04/30/17 04/30/17 04/30/17 06:15 06:30 06:30 WBC 7.5 RBC 2.86 L Hgb 9.3 L Hct 28.8 L MCV 100.6 H MCH 32.4 H MCHC 32.2 L RDW 16.2 H Plt Count 147 Sodium 141 Potassium 4.4 Chloride 111 H Carbon Dioxide 22 Anion Gap 12 BUN 21 H Creatinine 1.0 Est GFR ( Amer) > 60 Est GFR (Non-Af Amer) 52 POC Glucose (mg/dL) 185 H Random Glucose 152 H Calcium 8.8 Total Bilirubin 0.3 AST 24 ALT 36 Alkaline Phosphatase 104 Total Protein 6.1 L Albumin 3.1 L Globulin 3.0 Albumin/Globulin Ratio 1.0 TSH 3rd Generation 3.12
--- NOTE | 2017-04-30 10:37 | CP.PCM.CON ---
History of Present Illness - History of Present Illness History of Present Illness: This 87 year old female, a former cigarette smoker, was initially seen in acute medicine where she was admitted with UTI and sepsis. She has improved quite nicely, but there was noted development of a right sided pleural effusion. She does have mild dyspnea on exertion, but appears comfortable at rest. There is no oxygen desaturation at rest. She has an extensive cardiac history complicated by arrhythmia as well as cardiomyopathy and prior SD/cardiac arrest. Comorbid conditions have included, GI bleeding, COPD, diabetes and dementia. Past Patient History - Infectious Disease Hx of Infectious Diseases: None - Tetanus Immunizations Tetanus Immunization: Unknown - Past Medical History & Family History Past Medical History?: Yes - Past Social History Smoking Status: Former Smoker Chewing Tobacco Use: No Cigar Use: No Alcohol: Social Drugs: Denies Home Situation {Lives}: With Family - CARDIAC Hx Atrial Fibrillation: Yes Hx Congestive Heart Failure: Yes Hx Heart Attack: Yes Hx Hypercholesterolemia: Yes Hx Hypertension: Yes Hx Internal Defibrillator: Yes Hx Pacemaker: Yes Hx Peripheral Edema: Yes - PULMONARY Hx Chronic Obstructive Pulmonary Disease (COPD): Yes Other/Comment: current pleural effusion - NEUROLOGICAL Hx Dementia: Yes - HEENT Hx Glaucoma: Yes Hx Macular Degeneration: Yes - RENAL Hx Chronic Kidney Disease: No - ENDOCRINE/METABOLIC Hx Diabetes Mellitus Type 2: Yes - HEMATOLOGICAL/ONCOLOGICAL Hx Anemia: Yes Hx Blood Transfusions: Yes Hx Human Immunodeficiency Virus (HIV): No - INTEGUMENTARY Hx Dermatological Problems: No - MUSCULOSKELETAL/RHEUMATOLOGICAL Hx Falls: Yes (fell 2x past mo.) - GASTROINTESTINAL Hx Gastritis: Yes - GENITOURINARY/GYNECOLOGICAL Hx Genitourinary Disorders: No Hx Incontinence: Yes Other/Comment: Current incontinence - PSYCHIATRIC Hx Psychophysiologic Disorder: No Hx Substance Use: No - SURGICAL HISTORY Hx Appendectomy: No Hx Cardiac Catheterization: Yes Hx Coronary Artery Bypass Graft: Yes Other/Comment: w/ pacemaker - ANESTHESIA Hx Anesthesia: Yes Hx Anesthesia Reactions: No Hx Malignant Hyperthermia: No Meds Allergies/Adverse Reactions: Allergies Allergy/AdvReac Type Severity Reaction Status Date / Time Sulfa (Sulfonamide Allergy ITCHING Verified 04/29/17 18:25 Antibiotics) preservatives Allergy Unknown SWELLING Uncoded 10/01/14 15:06 - Medications Medications: Current Medications Al Hydrox/Mg Hydrox/Simethicone (Maalox Plus 30 Ml) 30 ml PO Q4 PRN PRN Reason: Indigestion / Heartburn Apixaban (Eliquis) 5 mg PO BID [facility] PRN Reason: Protocol Last Admin: 04/30/17 09:06 Dose: 5 mg Carvedilol (Coreg) 3.125 mg PO BID [facility] Last Admin: 04/30/17 09:11 Dose: 3.125 mg Ferrous Sulfate (Feosol) 325 mg PO BID [facility] Last Admin: 04/30/17 09:06 Dose: 325 mg Furosemide (Lasix) 20 mg PO DAILY [facility] Last Admin: 04/30/17 09:12 Dose: 20 mg Glipizide (Glucotrol) 5 mg PO ACBD [facility] Last Admin: 04/30/17 07:08 Dose: 5 mg Home Med (Cyclosporine [Restasis]) 1 drop BOTHEYES BID [facility] Last Admin: 04/30/17 09:07 Dose: 1 drop Home Med (Dorzolamide 2%/Timolol 0.5% [Cosopt 2%-0.5% Opht]) 1 drop EACHEYE BID [facility] Last Admin: 04/30/17 09:07 Dose: 1 drop Home Med (Tafluprost [Zioptan]) 1 drop EACHEYE HS [facility] Last Admin: 04/29/17 22:22 Dose: 1 drop Ceftriaxone Sodium 2 gm/ (Sodium Chloride) 100 mls @ 100 mls/hr IVPB DAILY@ 0500 [facility] Last Admin: 04/30/17 05:08 Dose: 100 mls/hr Piperacillin Sod/Tazobactam (Sod 2.25 gm/ Sodium Chloride) 100 mls @ 100 mls/ hr IVPB Q8 [facility] Last Admin: 04/30/17 09:04 Dose: 100 mls/hr Insulin Human Regular (Humulin R) 0 units SC [facility] PRN Reason: Protocol Last Admin: 04/30/17 06:54 Dose: Not Given Levalbuterol HCl (Xopenex) 0.63 mg INH RQ8 [facility] Last Admin: 04/30/17 07:35 Dose: 0.63 mg Multivitamins/Minerals (Therapeutic-M Tab) 1 tab PO DAILY [facility] Last Admin: 04/30/17 09:12 Dose: 1 tab Pantoprazole Sodium (Protonix Ec Tab) 40 mg PO DAILY [facility] Last Admin: 04/30/17 09:10 Dose: 40 mg Saccharomyces Boulardii (Florastor) 250 mg PO BID [facility] Physical Exam - Additional Findings Additional findings: Seated upright in bed, in no distress. Seems mildly confused, but not anxious. No dependant edema or cyanosis. No calf tenderness. Neck supple, trachea midline, no JVD. No palpable lymphadenopathy. Dullness to percussion at the right base posteriorly. Few scattered expiratory wheezes bilatyerally. Breath sounds are diminished bilaterally, especially so at the right lower lung field. No bronchial breath sounds or egophony. Heart sounds diminished, regular, systolic murmur at apex. Results - Vital Signs Recent Vital Signs: Last Vital Signs Temp 97.2 F L 04/30/17 08:19 Pulse 77 04/30/17 09:11 Resp 20 04/30/17 08:19 BP 145/73 04/30/17 09:12 Pulse Ox 100 04/30/17 08:19 - Labs Result Diagrams: 04/30/17 06:30 04/30/17 06:30 Labs: Laboratory Results - last 24 hr 04/30/17 04/30/17 04/30/17 06:15 06:30 06:30 WBC 7.5 RBC 2.86 L Hgb 9.3 L Hct 28.8 L MCV 100.6 H MCH 32.4 H MCHC 32.2 L RDW 16.2 H Plt Count 147 Sodium 141 Potassium 4.4 Chloride 111 H Carbon Dioxide 22 Anion Gap 12 BUN 21 H Creatinine 1.0 Est GFR ( Amer) > 60 Est GFR (Non-Af Amer) 52 POC Glucose (mg/dL) 185 H Random Glucose 152 H Calcium 8.8 Total Bilirubin 0.3 AST 24 ALT 36 Alkaline Phosphatase 104 Total Protein 6.1 L Albumin 3.1 L Globulin 3.0 Albumin/Globulin Ratio 1.0 TSH 3rd Generation 3.12 Assessment & Plan (1) COPD (chronic obstructive pulmonary disease) Status: Chronic Priority: Medium (2) Pulmonary hypertension Status: Chronic Priority: High (3) Pleural effusion Status: Acute Priority: High - Assessment and Plan (Free Text) Plan: Continue levalbuterol inhalation therapy Q8H. PRN use of rescue nebs as well. Follow up PCXR in AM. Would not use steroids or LAMA at this juncture. - Date & Time Date: 04/30/17 Time: 10:40
[2017-04-30] MEDS ORDERED: Levalbuterol 0.63 MG/3 ML Inhal Soln UD INH PRN (10:38)
[2017-04-30] MEDS: Saccharomyces Boulardi 250 mg Cap PO SCH (17:58)
--- NOTE | 2017-04-30 19:08 | PN ---
DATE: 04/29/2017 The patient is seen in room 711, TCU. HISTORY OF PRESENT ILLNESS: This is an 87-year-old female with recent uncontrolled type 2 diabetes, transferred now to TCU for ongoing IV antibiotic management for underlying UTI and bacteremia as noted. Her glycemic levels are fluctuating but improved and the latest glucose values have ranged from 185 to 251 mg/dL. Her latest chemistry showed a BUN of 21. Sodium 141, potassium 4.4, chloride 111, CO2 of 22, glucose 152 and creatinine 1.0. Her hemoglobin A1c is 8.0% which is elevated and indicative of suboptimal metabolic control of her diabetic condition. Her TSH level is 3.12 as noted. So at this time, we will actually increase and modify her oral hypoglycemic therapy with glipizide to be given as 10 mg b.i.d. before meals, to start at dinner time today as ordered. We will titrate incrementally as indicated to optimize metabolic control. We will also continue the low-dose correction scale using regular insulin as given. We will obtain serial chemistries and supplement accordingly as needed. We will follow and advice. Lauryn Chandra MD
[2017-04-30] MEDS: TAFLUPROST EACHEYE SCH (21:50)
[2017-05-01] MEDS: Levalbuterol 0.63 MG/3 ML Inhal Soln UD INH SCH ×3 (00:33→15:27)
--- NOTE | 2017-05-01 03:57 | CON ---
MARISELA SANCHEZ 04/25/17 INFECTIOUS DISEASE CONSULT DATE:04/30/17 LOCATION: The patient has been transferred from the [address] [place] [address] telemetry unit to readmission on TCU. She is in room 711. HISTORY OF PRESENT ILLNESS: The patient is an 87-year-old female who was brought in a week ago via the emergency room because of urosepsis. Her urine and blood both grew E. coli, which was pansensitive to antibiotic panel used. PAST MEDICAL HISTORY: The patient has a past history of coronary artery disease with bypass. She has had a placement of a defibrillator. She has congestive heart failure with an ejection fraction of 13% and chronic atrial fibrillation for which she takes Eliquis. She has had multiple hospitalizations for anemia secondary to Coumadin reaction and has had multiple transfusions. She also had diabetes mellitus, which up to this point has been diet controlled, but has significant elevations in blood sugars and she was seen in consult by Dr. Lauryn Chandra, boatswain mate. She also has a history of COPD and has dementia, most likely related to hydrocephalus. The patient is alert and awake, but not necessarily aware of surroundings and what is going on. SOCIAL HISTORY: She is a social drinker and former smoker, pack a day smoker, which she stopped many years ago, probably greater than 40 years. Her first cardiac issue was back in the late 80s when she had acute OK and she necessitated defibrillator, which was placed at [facility] back in the s possibly 1992 and has had I think is on her fifth defibrillator. She also had a pericardial stripping back in the late s. PHYSICAL EXAMINATION: NECK: Supple. HEART: Atrial fibrillation. LUNGS: She has decreased breath sounds at the bases and at both lower lung galvez. ABDOMEN: Soft. Positive bowel sounds. EXTREMITIES: No real edema and pulses are palpable, but diminished. LABORATORY DATA: She had a problem with thrombocytopenia, which is improved and renal insufficiency, which is also improved significantly and she now has a creatinine of 1 and GFR of 55. At the present time, diagnoses as is urosepsis and also has stage 2 decubiti; have treated her with IV Rocephin and IV Zosyn. She is to have at least 10 days to 2 weeks of IV antibiotics. Florentin Chaparro MD [facility]
[2017-05-01] MEDS: cefTRIAXone 2 GM in Sodium Chloride 0.9% 100 ML IVPB SCH (05:30)
[2017-05-01] MEDS: Insulin Regular 100 units/ml SC SCH ×4 (06:46→22:46)
[2017-05-01] MEDS: Saccharomyces Boulardi 250 mg Cap PO SCH ×2 (08:57→16:41)
[2017-05-01] MEDS: Multivitamin With Minerals Tab PO SCH (08:57)
[2017-05-01] MEDS: Pantoprazole 40 mg EC Tab PO SCH (08:59)
[2017-05-01] MEDS: Patient's Own Med (Dorzolamide 2%/Timolol 0.5% [Cosopt 2%-0.5% Opht] 1 DROP) EACHEYE SCH ×2 (09:00→16:40)
[2017-05-01] MEDS: Patient's Own Med (Cyclosporine [Restasis] 1 DROP) BOTHEYES SCH ×2 (09:03→16:45)
--- NOTE | 2017-05-01 17:25 | RAD ---
HISTORY: pleural effusion COMPARISON: 04/29/2017 FINDINGS: LUNGS: Improving aeration of right lower lobe. PLEURA: No significant pleural effusion identified, no pneumothorax apparent. CARDIOVASCULAR: Stable cardiomegaly/ pulmonary vascular congestion. Position/ configuration of pacemaker satisfactory position unchanged compared to the prior study. OSSEOUS STRUCTURES: No significant abnormalities. VISUALIZED UPPER ABDOMEN: Normal. OTHER FINDINGS: None. IMPRESSION: Interval improvement in right lower lobe infiltrate.
--- NOTE | 2017-05-01 19:56 | PN ---
DATE: 04/29/2017 LOCATION: Room 711, PCU. SUBJECTIVE: This is an 87-year-old female with recent UTI and bacteremia and currently undergoing IV antibiotic management in the PCU with physical therapy as given and is also being followed closely for metabolic management. Her glycemic levels are fluctuating as also noted with the variability of her oral intake as noted. Her glucose values have ranged from 145 to 168 and 318 mg/dL. Her latest chemistry showed a BUN of 21, sodium 141, potassium 4.4, chloride 111, and CO2 of 22. Glucose 152 and creatinine 1.0. Her hemoglobin A1c is 8.0%, which is actually fairly satisfactory for her age and degree of metabolic control at this time. So for now, we will continue the glipizide given as 10 mg b.i.d. before meals as ordered. We will consider the addition of Januvia if hyperglycemic levels persists postprandially as noted. We will follow and advise accordingly. Lauryn Chandra MD
[2017-05-01] MEDS: TAFLUPROST EACHEYE SCH (22:47)
[2017-05-02] MEDS: Levalbuterol 0.63 MG/3 ML Inhal Soln UD INH SCH ×3 (00:10→15:01)
[2017-05-02] MEDS: cefTRIAXone 2 GM in Sodium Chloride 0.9% 100 ML IVPB SCH (04:41)
[2017-05-02] MEDS: Insulin Regular 100 units/ml SC SCH ×4 (07:12→22:49)
[2017-05-02] MEDS: Multivitamin With Minerals Tab PO SCH (08:49)
[2017-05-02] MEDS: Patient's Own Med (Dorzolamide 2%/Timolol 0.5% [Cosopt 2%-0.5% Opht] 1 DROP) EACHEYE SCH ×2 (08:49→18:04)
[2017-05-02] MEDS: Pantoprazole 40 mg EC Tab PO SCH (08:49)
[2017-05-02] MEDS: Patient's Own Med (Cyclosporine [Restasis] 1 DROP) BOTHEYES SCH ×2 (08:50→17:56)
[2017-05-02] MEDS: Saccharomyces Boulardi 250 mg Cap PO SCH ×2 (08:50→17:56)
--- NOTE | 2017-05-02 11:21 | CP.PCM.PN ---
Subjective - Date & Time of Evaluation Date of Evaluation: 05/02/17 Time of Evaluation: 10:20 - Subjective Subjective: Poorly motivated to participate in PT Has no symptoms, comfortable at rest HR 60 BPM reg BP 124/70 mm Hg JVP flat, no oedema over feet Present Rx to continue Dr. Chandra's in put appreciated. Objective - Vital Signs/Intake and Output Vital Signs (last 24 hours): Temp Pulse Resp BP Pulse Ox 98.1 F 74 20 134/68 100 05/02/17 08:03 05/02/17 08:50 05/02/17 08:03 05/02/17 08:50 05/02/17 08:03 - Medications Medications: Current Medications Al Hydrox/Mg Hydrox/Simethicone (Maalox Plus 30 Ml) 30 ml PO Q4 PRN PRN Reason: Indigestion / Heartburn Apixaban (Eliquis) 5 mg PO BID [facility] PRN Reason: Protocol Last Admin: 05/02/17 08:49 Dose: 5 mg Carvedilol (Coreg) 3.125 mg PO BID [facility] Last Admin: 05/02/17 08:50 Dose: 3.125 mg Ferrous Sulfate (Feosol) 325 mg PO BID [facility] Last Admin: 05/02/17 08:49 Dose: 325 mg Furosemide (Lasix) 20 mg PO DAILY [facility] Last Admin: 05/02/17 08:49 Dose: 20 mg Glipizide (Glucotrol) 10 mg PO ACBD [facility] Last Admin: 05/02/17 07:35 Dose: 10 mg Home Med (Cyclosporine [Restasis]) 1 drop BOTHEYES BID [facility] Last Admin: 05/01/17 16:45 Dose: 1 drop Home Med (Dorzolamide 2%/Timolol 0.5% [Cosopt 2%-0.5% Opht]) 1 drop EACHEYE BID [facility] Last Admin: 05/02/17 08:49 Dose: 1 drop Home Med (Tafluprost [Zioptan]) 1 drop EACHEYE HS [facility] Last Admin: 05/01/17 22:47 Dose: 1 drop Ceftriaxone Sodium 2 gm/ (Sodium Chloride) 100 mls @ 100 mls/hr IVPB DAILY@ 0500 [facility] Last Admin: 05/02/17 04:41 Dose: 100 mls/hr Insulin Human Regular (Humulin R) 0 units SC [facility] PRN Reason: Protocol Last Admin: 05/02/17 07:12 Dose: Not Given Levalbuterol HCl (Xopenex) 0.63 mg INH RQ8 [facility] Last Admin: 05/02/17 07:28 Dose: 0.63 mg Levalbuterol HCl (Xopenex) 0.63 mg INH Q4H PRN PRN Reason: Shortness of Breath Multivitamins/Minerals (Therapeutic-M Tab) 1 tab PO DAILY [facility] Last Admin: 05/02/17 08:49 Dose: 1 tab Oxybutynin Chloride (Ditropan Tab) 5 mg PO DAILY [facility] Last Admin: 05/02/17 08:49 Dose: 5 mg Pantoprazole Sodium (Protonix Ec Tab) 40 mg PO DAILY [facility] Last Admin: 05/02/17 08:49 Dose: 40 mg Saccharomyces Boulardii (Florastor) 250 mg PO BID [facility] Last Admin: 05/02/17 08:50 Dose: 250 mg - Labs Labs: 04/30/17 06:30 04/30/17 06:30
--- NOTE | 2017-05-02 13:33 | CP.PCM.PN ---
Subjective - Date & Time of Evaluation Date of Evaluation: 05/02/17 Time of Evaluation: 13:30 - Subjective Subjective: Seated in bedside chair. States she feels 'stupid' today. 'Everything tastes bad', poor appetite. SpO2 90% on room air. No dullness on chest percussion. Breath sounds are diminished but present bilaterally. Rare dry basal rales, no wheezes or rub. Followup CXR: No infiltrates or effusions, ++ cardiomegaly. Will place nasal canula on at 1.5LPM, continuous. Continue PT as tolerated, continue maintenance medications. Objective - Vital Signs/Intake and Output Vital Signs (last 24 hours): Temp Pulse Resp BP Pulse Ox 98.1 F 74 20 134/68 100 05/02/17 08:03 05/02/17 08:50 05/02/17 08:03 05/02/17 08:50 05/02/17 08:03 - Medications Medications: Current Medications Al Hydrox/Mg Hydrox/Simethicone (Maalox Plus 30 Ml) 30 ml PO Q4 PRN PRN Reason: Indigestion / Heartburn Apixaban (Eliquis) 5 mg PO BID [facility] PRN Reason: Protocol Last Admin: 05/02/17 08:49 Dose: 5 mg Carvedilol (Coreg) 3.125 mg PO BID [facility] Last Admin: 05/02/17 08:50 Dose: 3.125 mg Ferrous Sulfate (Feosol) 325 mg PO BID [facility] Last Admin: 05/02/17 08:49 Dose: 325 mg Furosemide (Lasix) 20 mg PO DAILY [facility] Last Admin: 05/02/17 08:49 Dose: 20 mg Glipizide (Glucotrol) 10 mg PO ACBD [facility] Last Admin: 05/02/17 07:35 Dose: 10 mg Home Med (Cyclosporine [Restasis]) 1 drop BOTHEYES BID [facility] Last Admin: 05/01/17 16:45 Dose: 1 drop Home Med (Dorzolamide 2%/Timolol 0.5% [Cosopt 2%-0.5% Opht]) 1 drop EACHEYE BID [facility] Last Admin: 05/02/17 08:49 Dose: 1 drop Home Med (Tafluprost [Zioptan]) 1 drop EACHEYE HS [facility] Last Admin: 05/01/17 22:47 Dose: 1 drop Ceftriaxone Sodium 2 gm/ (Sodium Chloride) 100 mls @ 100 mls/hr IVPB DAILY@ 0500 [facility] Last Admin: 05/02/17 04:41 Dose: 100 mls/hr Insulin Human Regular (Humulin R) 0 units SC [facility] PRN Reason: Protocol Last Admin: 05/02/17 12:34 Dose: 3 unit Levalbuterol HCl (Xopenex) 0.63 mg INH RQ8 [facility] Last Admin: 05/02/17 07:28 Dose: 0.63 mg Levalbuterol HCl (Xopenex) 0.63 mg INH Q4H PRN PRN Reason: Shortness of Breath Multivitamins/Minerals (Therapeutic-M Tab) 1 tab PO DAILY [facility] Last Admin: 05/02/17 08:49 Dose: 1 tab Oxybutynin Chloride (Ditropan Tab) 5 mg PO DAILY [facility] Last Admin: 05/02/17 08:49 Dose: 5 mg Pantoprazole Sodium (Protonix Ec Tab) 40 mg PO DAILY [facility] Last Admin: 05/02/17 08:49 Dose: 40 mg Saccharomyces Boulardii (Florastor) 250 mg PO BID [facility] Last Admin: 05/02/17 08:50 Dose: 250 mg - Labs Labs: 04/30/17 06:30 04/30/17 06:30 Assessment and Plan (1) COPD (chronic obstructive pulmonary disease) Status: Chronic (2) Pulmonary hypertension Status: Chronic (3) Pleural effusion Status: Acute
[2017-05-02] MEDS ORDERED: Promethazine/Cod 6.25mg-10mg/5ml Syr UD PO SCH ×2 (16:45→22:00)
--- NOTE | 2017-05-02 20:54 | PN ---
DATE: ENDO FOLLOWUP NOTE ROOM: 711, [facility]. SUBJECTIVE: This is an 87-year-old female with recent uncontrolled type 2 diabetes, now being followed closely for metabolic management. Her oral intake is variable, but does improved accordingly with preferential food intake from homemade meals. Her glucose levels today have ranged from 274 to 293 mg/dL. It was 136 at pre-breakfast this morning and 202 at bedtime last night. Her latest chemistry showed a BUN of 21, sodium 141, potassium 4.4, chloride 111, CO2 of 22, glucose 152 and creatinine 1.0. So at this time, we will continue the oral hypoglycemic drug therapy as given with Glucotrol given as 10 mg p.o. b.i.d. before meals as ordered. We will also add Januvia given as 50 mg once daily before breakfast as ordered. We will titrate incremental as indicated to optimize metabolic control. We will follow and advise accordingly. Lauryn Chandra MD
[2017-05-02] MEDS: TAFLUPROST EACHEYE SCH (22:52)
[2017-05-03] MEDS: Levalbuterol 0.63 MG/3 ML Inhal Soln UD INH SCH ×3 (00:57→16:29)
[2017-05-03] MEDS: cefTRIAXone 2 GM in Sodium Chloride 0.9% 100 ML IVPB SCH (05:09)
[2017-05-03] MEDS: Insulin Regular 100 units/ml SC SCH ×4 (07:18→23:55)
[2017-05-03] MEDS: Patient's Own Med (Dorzolamide 2%/Timolol 0.5% [Cosopt 2%-0.5% Opht] 1 DROP) EACHEYE SCH ×2 (10:29→17:20)
[2017-05-03] MEDS: Patient's Own Med (Cyclosporine [Restasis] 1 DROP) BOTHEYES SCH ×2 (10:30→17:20)
[2017-05-03] MEDS: Pantoprazole 40 mg EC Tab PO SCH (10:30)
[2017-05-03] MEDS: Saccharomyces Boulardi 250 mg Cap PO SCH ×2 (10:30→17:20)
[2017-05-03] MEDS: Multivitamin With Minerals Tab PO SCH (17:45)
--- NOTE | 2017-05-03 20:46 | PN ---
DATE: LOCATION: Room 711. SUBJECTIVE: This is an 87-year-old female with recent uncontrolled type 2 insulin-requiring diabetes with extremes of glycemic fluctuations related to the variability of her oral intake as noted. LABORATORY DATA: Her glucose levels today have ranged from 135 to 322 mg/dL. It was 144 at prebreakfast this morning and it was 184 to 274 last night as noted. Her latest chemistry shows a BUN of 21, sodium 141, potassium 4.4, chloride 111, CO2 22, glucose 152, and creatinine 1.0. Her hemoglobin A1c is 8.0% as noted. ASSESSMENT AND PLAN: We will continue the dual oral hypoglycemic drug therapy as given with glipizide given as 10 mg b.i.d. before meals as ordered. We will also continue the Januvia given as 50 mg once daily in the morning as ordered. If hyperglycemic levels persists, especially post-prandially then we may need to add a low dose premixed and/or bolus insulin regimen as indicated. However, because of the patient's advanced age and also incapacity to self inject her own insulin regimen, we will try to hold off any kind of insulin dosing for outpatient diabetic management at this time. We will observe glycemic response to the dual oral hypoglycemic therapy as given. We will obtain serum chemistries and supplement accordingly as needed. We will followup. Lauryn Chandra MD
[2017-05-03] MEDS: Promethazine/Cod 6.25mg-10mg/5ml Syr UD PO SCH (21:52)
[2017-05-03] MEDS: TAFLUPROST EACHEYE SCH (21:54)
[2017-05-04] MEDS: Levalbuterol 0.63 MG/3 ML Inhal Soln UD INH SCH ×4 (00:37→23:22)
[2017-05-04] MEDS: cefTRIAXone 2 GM in Sodium Chloride 0.9% 100 ML IVPB SCH (04:45)
[2017-05-04] MEDS: Insulin Regular 100 units/ml SC SCH ×4 (07:00→17:21)
[2017-05-04 09:20] LABS: BASO # 0.1 K/uL (0.0-0.2); BASO % 0.5 % (0.0-2.0); EOS # 0.1 K/uL (0.0-0.7); EOS % 0.9 % (0.0-4.0); HEMATOCRIT 28.9 % (34.0-47.0); LYMPH # 0.3 K/uL (1.0-4.3); LYMPH % 2.9 % (20.0-40.0); MEAN CELL VOLUME 101.2 fl (81.0-99.0); MEAN CORPUSCULAR HEMOGLOBIN 32.6 pg (27.0-31.0); MEAN CORPUSCULAR HGB CONC 32.2 g/dL (33.0-37.0); MEAN PLATELET VOLUME 9.1 fl (7.2-11.7); MONO # 0.8 K/uL (0.0-0.8); MONO % 6.9 % (0.0-10.0); NEUT # 9.9 K/uL (1.8-7.0); NEUT % 88.8 % (50.0-75.0); PLATELET COUNT 230 K/uL (130-400); RED CELL DISTRIBUTION WIDTH 16.8 % (11.5-14.5); WHITE BLOOD COUNT 11.1 K/uL (4.8-10.8)
[2017-05-04 09:45] LABS: ALB/GLOB RATIO 1.1 (1.0-2.1); ALKALINE PHOSPHATASE 103 U/L (38-126); ALT/SGPT 37 U/L (9-52); AST/SGOT 19 U/L (14-36); BILIRUBIN,TOTAL 0.3 mg/dl (0.2-1.3); BLOOD UREA NITROGEN 16 mg/dl (7-17); CALCIUM 8.9 mg/dL (8.4-10.2); CARBON DIOXIDE 27 mmol/L (22-30); CHLORIDE 106 mmol/L (98-107); GFR AFRICAN-AMERICAN > 60; GLUCOSE,RANDOM 181 mg/dL (65-105); POTASSIUM 4.8 MMOL/L (3.6-5.0); SODIUM 143 mmol/l (132-148); TOTAL PROTEIN 6.7 G/DL (6.3-8.2)
[2017-05-04] MEDS: Patient's Own Med (Cyclosporine [Restasis] 1 DROP) BOTHEYES SCH ×2 (09:46→17:28)
[2017-05-04] MEDS: Saccharomyces Boulardi 250 mg Cap PO SCH ×2 (09:47→17:22)
[2017-05-04] MEDS: Multivitamin With Minerals Tab PO SCH (09:49)
[2017-05-04] MEDS: Pantoprazole 40 mg EC Tab PO SCH (09:49)
[2017-05-04] MEDS: Patient's Own Med (Dorzolamide 2%/Timolol 0.5% [Cosopt 2%-0.5% Opht] 1 DROP) EACHEYE SCH ×2 (09:57→17:22)
--- NOTE | 2017-05-04 11:32 | CP.PCM.PN ---
Subjective - Date & Time of Evaluation Date of Evaluation: 05/04/17 Time of Evaluation: 10:00 - Subjective Subjective: Resting comfortably Ate better than usual amount for breakfast HR 62 BPM, reg BP 130/70 mm Hg No signs of CHF Has a scantily productive cough HB 9.3gms Leucocyte count 11.4K PLTLT count normal BUN/Creatinin 16/1.0 mg Electrolytes normal Objective - Vital Signs/Intake and Output Vital Signs (last 24 hours): Temp Pulse Resp BP Pulse Ox 97.7 F 76 20 122/68 99 05/04/17 08:27 05/04/17 09:48 05/04/17 08:27 05/04/17 09:49 05/04/17 08:27 - Medications Medications: Current Medications Al Hydrox/Mg Hydrox/Simethicone (Maalox Plus 30 Ml) 30 ml PO Q4 PRN PRN Reason: Indigestion / Heartburn Apixaban (Eliquis) 5 mg PO BID [facility] PRN Reason: Protocol Last Admin: 05/04/17 09:48 Dose: 5 mg Carvedilol (Coreg) 3.125 mg PO BID [facility] Last Admin: 05/04/17 09:48 Dose: 3.125 mg Ferrous Sulfate (Feosol) 325 mg PO BID [facility] Last Admin: 05/04/17 09:49 Dose: 325 mg Furosemide (Lasix) 20 mg PO DAILY [facility] Last Admin: 05/04/17 09:49 Dose: 20 mg Glipizide (Glucotrol) 10 mg PO ACBD [facility] Last Admin: 05/04/17 07:01 Dose: 10 mg Home Med (Cyclosporine [Restasis]) 1 drop BOTHEYES BID [facility] Last Admin: 05/04/17 09:46 Dose: 1 drop Home Med (Dorzolamide 2%/Timolol 0.5% [Cosopt 2%-0.5% Opht]) 1 drop EACHEYE BID [facility] Last Admin: 05/04/17 09:57 Dose: 1 drop Home Med (Tafluprost [Zioptan]) 1 drop EACHEYE HS [facility] Last Admin: 05/03/17 21:54 Dose: 1 drop Ceftriaxone Sodium 2 gm/ (Sodium Chloride) 100 mls @ 100 mls/hr IVPB DAILY@ 0500 [facility] Last Admin: 05/04/17 04:45 Dose: 100 mls/hr Insulin Human Regular (Humulin R) 0 units SC ACHS [facility] PRN Reason: Protocol Last Admin: 05/04/17 07:00 Dose: Not Given Levalbuterol HCl (Xopenex) 0.63 mg INH RQ8 [facility] Last Admin: 05/04/17 08:37 Dose: 0.63 mg Levalbuterol HCl (Xopenex) 0.63 mg INH Q4H PRN PRN Reason: Shortness of Breath Multivitamins/Minerals (Therapeutic-M Tab) 1 tab PO DAILY [facility] Last Admin: 05/04/17 09:49 Dose: 1 tab Oxybutynin Chloride (Ditropan Tab) 5 mg PO DAILY [facility] Last Admin: 05/04/17 09:48 Dose: 5 mg Pantoprazole Sodium (Protonix Ec Tab) 40 mg PO DAILY [facility] Last Admin: 05/04/17 09:49 Dose: 40 mg Promethazine HCl/Codeine (Phenergan/Codeine Oral Syrup) 5 ml PO HS [facility] Last Admin: 05/03/17 21:52 Dose: 5 ml Saccharomyces Boulardii (Florastor) 250 mg PO BID [facility] Last Admin: 05/04/17 09:47 Dose: 250 mg Sitagliptin Phosphate (Januvia) 50 mg PO DAILY [facility] Last Admin: 05/04/17 09:48 Dose: 50 mg - Labs Labs: 05/04/17 08:30 05/04/17 08:30
[2017-05-04 14:01] LABS: EOSINOPHIL 2 % (0-7); NEUTROPHIL 91 % (42-75); TOTAL CELLS COUNTED 100
[2017-05-04 14:02] LABS: LARGE PLATELETS PRESENT
--- NOTE | 2017-05-04 16:23 | CP.PCM.PN ---
Subjective - Date & Time of Evaluation Date of Evaluation: 05/04/17 Time of Evaluation: 16:12 - Subjective Subjective: I D NOTE PATIENT CONTINUES TO BE QUITE DIFFICULT DISCUSSED C IN REGARD TO EVENING CONGESTION(has rales at bases) AND INCREASED EDEMA AND WILL WILL INCREASE LASIX TO 20MG PO BID WBC:IS 11 TODAY, Objective - Vital Signs/Intake and Output Vital Signs (last 24 hours): Temp Pulse Resp BP Pulse Ox 97.7 F 76 20 122/68 99 05/04/17 08:27 05/04/17 09:48 05/04/17 08:27 05/04/17 09:49 05/04/17 08:27 - Medications Medications: Current Medications Al Hydrox/Mg Hydrox/Simethicone (Maalox Plus 30 Ml) 30 ml PO Q4 PRN PRN Reason: Indigestion / Heartburn Apixaban (Eliquis) 5 mg PO BID [facility] PRN Reason: Protocol Last Admin: 05/04/17 09:48 Dose: 5 mg Carvedilol (Coreg) 3.125 mg PO BID [facility] Last Admin: 05/04/17 09:48 Dose: 3.125 mg Ferrous Sulfate (Feosol) 325 mg PO BID [facility] Last Admin: 05/04/17 09:49 Dose: 325 mg Furosemide (Lasix) 20 mg PO BID [facility] Glipizide (Glucotrol) 10 mg PO ACBD [facility] Last Admin: 05/04/17 07:01 Dose: 10 mg Home Med (Cyclosporine [Restasis]) 1 drop BOTHEYES BID [facility] Last Admin: 05/04/17 09:46 Dose: 1 drop Home Med (Dorzolamide 2%/Timolol 0.5% [Cosopt 2%-0.5% Opht]) 1 drop EACHEYE BID [facility] Last Admin: 05/04/17 09:57 Dose: 1 drop Home Med (Tafluprost [Zioptan]) 1 drop EACHEYE HS [facility] Last Admin: 05/03/17 21:54 Dose: 1 drop Ceftriaxone Sodium 2 gm/ (Sodium Chloride) 100 mls @ 100 mls/hr IVPB DAILY@ 0500 [facility] Last Admin: 05/04/17 04:45 Dose: 100 mls/hr Insulin Human Regular (Humulin R) 0 units SC [facility] PRN Reason: Protocol Last Admin: 05/04/17 12:55 Dose: Not Given Levalbuterol HCl (Xopenex) 0.63 mg INH RQ8 [facility] Last Admin: 05/04/17 15:30 Dose: 0.63 mg Levalbuterol HCl (Xopenex) 0.63 mg INH Q4H PRN PRN Reason: Shortness of Breath Multivitamins/Minerals (Therapeutic-M Tab) 1 tab PO DAILY [facility] Last Admin: 05/04/17 09:49 Dose: 1 tab Oxybutynin Chloride (Ditropan Tab) 5 mg PO DAILY [facility] Last Admin: 05/04/17 09:48 Dose: 5 mg Pantoprazole Sodium (Protonix Ec Tab) 40 mg PO DAILY [facility] Last Admin: 05/04/17 09:49 Dose: 40 mg Promethazine HCl/Codeine (Phenergan/Codeine Oral Syrup) 5 ml PO HS [facility] Last Admin: 05/03/17 21:52 Dose: 5 ml Saccharomyces Boulardii (Florastor) 250 mg PO BID [facility] Last Admin: 05/04/17 09:47 Dose: 250 mg Sitagliptin Phosphate (Januvia) 50 mg PO DAILY [facility] Last Admin: 05/04/17 09:48 Dose: 50 mg - Labs Labs: 05/04/17 08:30 05/04/17 08:30
[2017-05-04] MEDS: Promethazine/Cod 6.25mg-10mg/5ml Syr UD PO SCH (22:00)
[2017-05-04] MEDS: TAFLUPROST EACHEYE SCH (22:03)
[2017-05-05] MEDS: Insulin Regular 100 units/ml SC SCH ×5 (00:39→22:10)
[2017-05-05] MEDS: cefTRIAXone 2 GM in Sodium Chloride 0.9% 100 ML IVPB SCH (06:46)
[2017-05-05] MEDS: Levalbuterol 0.63 MG/3 ML Inhal Soln UD INH SCH ×3 (07:32→23:33)
--- NOTE | 2017-05-05 08:06 | CP.PCM.PN ---
Subjective - Date & Time of Evaluation Date of Evaluation: 05/05/17 Time of Evaluation: 07:55 - Subjective Subjective: Says she had a restful night Denies any dyspnoea Say she is hungry and waiting for her breakfast HR 62 BPM,reg BP 130/72 mm HG JVP flat, no pedal or sacral oedema Occ wheez+ No rales Apical syst murmur of MR+ Anti diabetics are being adjusted by Dr. Chandra Objective - Vital Signs/Intake and Output Vital Signs (last 24 hours): Temp Pulse Resp BP Pulse Ox 97.7 F 75 20 120/57 L 100 05/04/17 21:39 05/04/17 21:39 05/04/17 21:39 05/04/17 21:39 05/04/17 21:39 - Medications Medications: Current Medications Al Hydrox/Mg Hydrox/Simethicone (Maalox Plus 30 Ml) 30 ml PO Q4 PRN PRN Reason: Indigestion / Heartburn Apixaban (Eliquis) 5 mg PO BID [facility] PRN Reason: Protocol Last Admin: 05/04/17 17:22 Dose: 5 mg Carvedilol (Coreg) 3.125 mg PO BID [facility] Last Admin: 05/04/17 17:22 Dose: 3.125 mg Ferrous Sulfate (Feosol) 325 mg PO BID [facility] Last Admin: 05/04/17 17:22 Dose: 325 mg Furosemide (Lasix) 20 mg PO BID [facility] Last Admin: 05/04/17 17:24 Dose: 20 mg Glipizide (Glucotrol) 10 mg PO ACBD [facility] Last Admin: 05/05/17 06:48 Dose: 10 mg Home Med (Cyclosporine [Restasis]) 1 drop BOTHEYES BID [facility] Last Admin: 05/04/17 17:28 Dose: 1 drop Home Med (Dorzolamide 2%/Timolol 0.5% [Cosopt 2%-0.5% Opht]) 1 drop EACHEYE BID [facility] Last Admin: 05/04/17 17:22 Dose: 1 drop Home Med (Tafluprost [Zioptan]) 1 drop EACHEYE HS [facility] Last Admin: 05/04/17 22:03 Dose: 1 drop Insulin Human Regular (Humulin R) 0 units SC [facility] PRN Reason: Protocol Last Admin: 08/21/17 06:58 Dose: Not Given Levalbuterol HCl (Xopenex) 0.63 mg INH RQ8 [facility] Last Admin: 05/05/17 07:32 Dose: 0.63 mg Levalbuterol HCl (Xopenex) 0.63 mg INH Q4H PRN PRN Reason: Shortness of Breath Multivitamins/Minerals (Therapeutic-M Tab) 1 tab PO DAILY [facility] Last Admin: 05/04/17 09:49 Dose: 1 tab Oxybutynin Chloride (Ditropan Tab) 5 mg PO DAILY [facility] Last Admin: 05/04/17 09:48 Dose: 5 mg Pantoprazole Sodium (Protonix Ec Tab) 40 mg PO DAILY [facility] Last Admin: 05/04/17 09:49 Dose: 40 mg Promethazine HCl/Codeine (Phenergan/Codeine Oral Syrup) 5 ml PO HS [facility] Last Admin: 05/04/17 22:00 Dose: 5 ml Saccharomyces Boulardii (Florastor) 250 mg PO BID [facility] Last Admin: 05/04/17 17:22 Dose: 250 mg Sitagliptin Phosphate (Januvia) 50 mg PO DAILY [facility] Last Admin: 05/04/17 09:48 Dose: 50 mg - Labs Labs: 05/04/17 08:30 05/04/17 08:30
[2017-05-05] MEDS: Multivitamin With Minerals Tab PO SCH (09:28)
[2017-05-05] MEDS: Saccharomyces Boulardi 250 mg Cap PO SCH ×2 (09:28→17:06)
[2017-05-05] MEDS: Pantoprazole 40 mg EC Tab PO SCH (09:28)
[2017-05-05] MEDS: Patient's Own Med (Cyclosporine [Restasis] 1 DROP) BOTHEYES SCH ×2 (09:55→19:00)
[2017-05-05] MEDS: Patient's Own Med (Dorzolamide 2%/Timolol 0.5% [Cosopt 2%-0.5% Opht] 1 DROP) EACHEYE SCH ×2 (10:03→19:00)
--- NOTE | 2017-05-05 11:02 | PN ---
L OCATION: Room 711. This is an 87-year-old female with recent uncontrolled type 2 insulin-requiring diabetes now being followed closely for metabolic management. Her glycemic levels are fluctuating but much improved today as noted with glucose levels ranging from 83 to 135 and 179 mg/dL. She had actually one high glucose level yesterday at lunch time with a glucose of 322 mg/dL. This is most likely just related to occasional dietary indiscretion with increased preferential food intake from home as noted. So, at this time, we will continue the same dual oral hypoglycemic drug therapy as given with Glucotrol given as 10 mg p.o. b.i.d. before meals as ordered. We will continue also the Januvia given as 50 mg once daily in the morning as given. We will continue the low dose correction scale using regular insulin as given and ordered. We will hold off any basal insulin for now as her glycemic levels have improved accordingly. We will follow. Lauryn Chandra MD
[2017-05-05] MEDS: TAFLUPROST EACHEYE SCH (22:22)
[2017-05-06] MEDS: Insulin Regular 100 units/ml SC SCH ×4 (06:46→21:37)
--- NOTE | 2017-05-06 07:10 | PN ---
ENDO FOLLOWUP NOTE LOCATION: Room 711. SUBJECTIVE: This is an 87-year-old female with recent uncontrolled type 2 diabetes, who is undergoing IV antibiotic management for recent bacteremia and urinary tract infection and is also being followed closely for metabolic management. Her glycemic levels are fluctuating, but much improved at this time as noted. Her glucose levels have ranged from 151 to 187 mg/dL. It was 222 to 242 last night as noted. The latest chemistry showed a BUN of 16, sodium 143, potassium 4.8, chloride 106, CO2 27, glucose 181, and creatinine 1.0. So at this time, we will actually hold off any kind of basal and/or bolus insulin regimen for now, especially with the fact that her oral intake is quite variable and suboptimal at this time. We will continue the dual oral hypoglycemic drug therapy as given with Januvia given as 50 mg once daily and glipizide given as 10 mg b.i.d. before meals as ordered. We will titrate incrementally as indicated to optimize metabolic control. We will obtain serial chemistries and supplement accordingly as needed. We will follow. Lauryn Chandra MD
[2017-05-06 07:18] LABS: BASO % 0.5 % (0.0-2.0); EOS # 0.1 K/uL (0.0-0.7); EOS % 1.3 % (0.0-4.0); HEMATOCRIT 27.2 % (34.0-47.0); LYMPH # 0.3 K/uL (1.0-4.3); MEAN CORPUSCULAR HEMOGLOBIN 32.8 pg (27.0-31.0); MEAN CORPUSCULAR HGB CONC 32.5 g/dL (33.0-37.0); MEAN PLATELET VOLUME 8.9 fl (7.2-11.7); MONO # 0.5 K/uL (0.0-0.8); MONO % 5.5 % (0.0-10.0); NEUT # 8.4 K/uL (1.8-7.0); NEUT % 89.7 % (50.0-75.0); RED CELL DISTRIBUTION WIDTH 16.5 % (11.5-14.5); WHITE BLOOD COUNT 9.4 K/uL (4.8-10.8)
[2017-05-06 07:29] LABS: ALB/GLOB RATIO 1.1 (1.0-2.1); ALKALINE PHOSPHATASE 91 U/L (38-126); ALT/SGPT 25 U/L (9-52); AST/SGOT 22 U/L (14-36); BILIRUBIN,TOTAL 0.4 mg/dl (0.2-1.3); BLOOD UREA NITROGEN 16 mg/dl (7-17); CALCIUM 8.8 mg/dL (8.4-10.2); CARBON DIOXIDE 27 mmol/L (22-30); CHLORIDE 105 mmol/L (98-107); GFR AFRICAN-AMERICAN > 60; GLUCOSE,RANDOM 156 mg/dL (65-105); POTASSIUM 4.4 MMOL/L (3.6-5.0); SODIUM 142 mmol/l (132-148); TOTAL PROTEIN 6.3 G/DL (6.3-8.2)
[2017-05-06] MEDS: Levalbuterol 0.63 MG/3 ML Inhal Soln UD INH SCH ×3 (07:37→23:48)
[2017-05-06] MEDS: Multivitamin With Minerals Tab PO SCH (09:28)
[2017-05-06] MEDS: Saccharomyces Boulardi 250 mg Cap PO SCH ×2 (09:30→17:19)
[2017-05-06] MEDS: Pantoprazole 40 mg EC Tab PO SCH (09:34)
--- NOTE | 2017-05-06 10:10 | CP.PCM.PN ---
Subjective - Date & Time of Evaluation Date of Evaluation: 05/06/17 Time of Evaluation: 10:08 - Subjective Subjective: Seated in bedside chair. In no distress. Anxious for discharge to home. No edema or cyanosis. Scattered sonorous and sibilant rhonchi. Seems medically stable from respiratory standpoint. Objective - Vital Signs/Intake and Output Vital Signs (last 24 hours): Temp Pulse Resp BP Pulse Ox 97.3 F L 75 20 128/65 93 L 05/06/17 08:07 05/06/17 09:31 05/06/17 08:07 05/06/17 09:31 05/06/17 08:07 - Medications Medications: Current Medications Al Hydrox/Mg Hydrox/Simethicone (Maalox Plus 30 Ml) 30 ml PO Q4 PRN PRN Reason: Indigestion / Heartburn Apixaban (Eliquis) 5 mg PO BID [facility] PRN Reason: Protocol Last Admin: 05/06/17 09:30 Dose: 5 mg Benzonatate (Tessalon Perles) 100 mg PO TID PRN PRN Reason: Cough Last Admin: 05/06/17 09:36 Dose: 100 mg Carvedilol (Coreg) 3.125 mg PO BID [facility] Last Admin: 05/06/17 09:31 Dose: 3.125 mg Ferrous Sulfate (Feosol) 325 mg PO BID [facility] Last Admin: 05/06/17 09:30 Dose: 325 mg Furosemide (Lasix) 20 mg PO BID [facility] Last Admin: 05/06/17 09:28 Dose: 20 mg Glipizide (Glucotrol) 10 mg PO ACBD [facility] Last Admin: 05/06/17 08:30 Dose: 10 mg Home Med (Cyclosporine [Restasis]) 1 drop BOTHEYES BID [facility] Last Admin: 05/05/17 19:00 Dose: Not Given Home Med (Dorzolamide 2%/Timolol 0.5% [Cosopt 2%-0.5% Opht]) 1 drop EACHEYE BID [facility] Last Admin: 05/05/17 19:00 Dose: Not Given Home Med (Tafluprost [Zioptan]) 1 drop EACHEYE HS [facility] Last Admin: 05/05/17 22:22 Dose: Not Given Insulin Human Regular (Humulin R) 0 units SC [facility] PRN Reason: Protocol Last Admin: 05/06/17 06:46 Dose: Not Given Levalbuterol HCl (Xopenex) 0.63 mg INH RQ8 [facility] Last Admin: 05/06/17 07:37 Dose: 0.63 mg Levalbuterol HCl (Xopenex) 0.63 mg INH Q4H PRN PRN Reason: Shortness of Breath Multivitamins/Minerals (Therapeutic-M Tab) 1 tab PO DAILY [facility] Last Admin: 05/06/17 09:28 Dose: 1 tab Oxybutynin Chloride (Ditropan Tab) 5 mg PO DAILY [facility] Last Admin: 05/06/17 09:31 Dose: 5 mg Pantoprazole Sodium (Protonix Ec Tab) 40 mg PO DAILY [facility] Last Admin: 05/06/17 09:34 Dose: 40 mg Saccharomyces Boulardii (Florastor) 250 mg PO BID [facility] Last Admin: 05/06/17 09:30 Dose: 250 mg Sitagliptin Phosphate (Januvia) 50 mg PO DAILY [facility] Last Admin: 05/06/17 09:31 Dose: 50 mg - Labs Labs: 05/06/17 06:00 05/06/17 06:00 Assessment and Plan (1) COPD (chronic obstructive pulmonary disease) Status: Chronic (2) Pulmonary hypertension Status: Chronic (3) Pleural effusion Status: Acute
--- NOTE | 2017-05-06 11:01 | CP.PCM.PN ---
Subjective - Date & Time of Evaluation Date of Evaluation: 05/06/17 Time of Evaluation: 10:00 - Subjective Subjective: Seen while receiving PT ambulating in samaniego with assistace offers no complaints Hgb: 8.8 WBC: 9,400 Objective - Vital Signs/Intake and Output Vital Signs (last 24 hours): Temp Pulse Resp BP Pulse Ox 97.3 F L 75 20 128/65 93 L 05/06/17 08:07 05/06/17 09:31 05/06/17 08:07 05/06/17 09:31 05/06/17 08:07 - Medications Medications: Current Medications Al Hydrox/Mg Hydrox/Simethicone (Maalox Plus 30 Ml) 30 ml PO Q4 PRN PRN Reason: Indigestion / Heartburn Apixaban (Eliquis) 5 mg PO BID [facility] PRN Reason: Protocol Last Admin: 05/06/17 09:30 Dose: 5 mg Benzonatate (Tessalon Perles) 100 mg PO TID PRN PRN Reason: Cough Last Admin: 05/06/17 09:36 Dose: 100 mg Carvedilol (Coreg) 3.125 mg PO BID [facility] Last Admin: 05/06/17 09:31 Dose: 3.125 mg Ferrous Sulfate (Feosol) 325 mg PO BID [facility] Last Admin: 05/06/17 09:30 Dose: 325 mg Furosemide (Lasix) 20 mg PO BID [facility] Last Admin: 05/06/17 09:28 Dose: 20 mg Glipizide (Glucotrol) 10 mg PO ACBD [facility] Last Admin: 05/06/17 08:30 Dose: 10 mg Home Med (Cyclosporine [Restasis]) 1 drop BOTHEYES BID [facility] Last Admin: 05/05/17 19:00 Dose: Not Given Home Med (Dorzolamide 2%/Timolol 0.5% [Cosopt 2%-0.5% Opht]) 1 drop EACHEYE BID [facility] Last Admin: 05/05/17 19:00 Dose: Not Given Home Med (Tafluprost [Zioptan]) 1 drop EACHEYE HS [facility] Last Admin: 05/05/17 22:22 Dose: Not Given Insulin Human Regular (Humulin R) 0 units SC [facility] PRN Reason: Protocol Last Admin: 05/06/17 06:46 Dose: Not Given Levalbuterol HCl (Xopenex) 0.63 mg INH RQ8 [facility] Last Admin: 05/06/17 07:37 Dose: 0.63 mg Levalbuterol HCl (Xopenex) 0.63 mg INH Q4H PRN PRN Reason: Shortness of Breath Multivitamins/Minerals (Therapeutic-M Tab) 1 tab PO DAILY [facility] Last Admin: 05/06/17 09:28 Dose: 1 tab Oxybutynin Chloride (Ditropan Tab) 5 mg PO DAILY [facility] Last Admin: 05/06/17 09:31 Dose: 5 mg Pantoprazole Sodium (Protonix Ec Tab) 40 mg PO DAILY [facility] Last Admin: 05/06/17 09:34 Dose: 40 mg Saccharomyces Boulardii (Florastor) 250 mg PO BID [facility] Last Admin: 05/06/17 09:30 Dose: 250 mg Sitagliptin Phosphate (Januvia) 50 mg PO DAILY [facility] Last Admin: 05/06/17 09:31 Dose: 50 mg - Labs Labs: 05/06/17 06:00 05/06/17 06:00
[2017-05-06] MEDS: Patient's Own Med (Dorzolamide 2%/Timolol 0.5% [Cosopt 2%-0.5% Opht] 1 DROP) EACHEYE SCH (18:55)
[2017-05-06] MEDS: Patient's Own Med (Cyclosporine [Restasis] 1 DROP) BOTHEYES SCH ×2 (18:55→18:56)
--- NOTE | 2017-05-06 19:31 | CP.PCM.PN ---
Subjective - Date & Time of Evaluation Date of Evaluation: 05/06/17 Time of Evaluation: 19:28 - Subjective Subjective: I D NOTE HAVE STARTED PO CEPHALOSPORIN (OMNICEF) STILL BEING EXHIBITING MAJOR SIGNS OF HER DEMENTIA URINARY INCONTINENT Objective - Vital Signs/Intake and Output Vital Signs (last 24 hours): Temp Pulse Resp BP Pulse Ox 97.6 F 74 20 134/65 100 05/06/17 16:49 05/06/17 17:17 05/06/17 16:49 05/06/17 17:19 05/06/17 16:49 - Medications Medications: Current Medications Acetaminophen (Tylenol 325mg Tab) 650 mg PO Q6 PRN PRN Reason: Headache Al Hydrox/Mg Hydrox/Simethicone (Maalox Plus 30 Ml) 30 ml PO Q4 PRN PRN Reason: Indigestion / Heartburn Alprazolam (Xanax) 0.25 mg PO DAILY PRN PRN Reason: Anxiety Stop: 05/14/17 09:01 Last Admin: 05/06/17 18:51 Dose: 0.25 mg Apixaban (Eliquis) 5 mg PO BID [facility] PRN Reason: Protocol Last Admin: 05/06/17 17:20 Dose: 5 mg Benzonatate (Tessalon Perles) 100 mg PO TID PRN PRN Reason: Cough Last Admin: 05/06/17 09:36 Dose: 100 mg Carvedilol (Coreg) 3.125 mg PO BID [facility] Last Admin: 05/06/17 17:17 Dose: 3.125 mg Cefdinir (Omnicef) 300 mg PO BID [facility] Ferrous Sulfate (Feosol) 325 mg PO BID [facility] Last Admin: 05/06/17 17:21 Dose: 325 mg Furosemide (Lasix) 20 mg PO BID [facility] Last Admin: 05/06/17 17:19 Dose: 20 mg Glipizide (Glucotrol) 10 mg PO ACBD [facility] Last Admin: 05/06/17 17:19 Dose: 10 mg Home Med (Cyclosporine [Restasis]) 1 drop BOTHEYES BID [facility] Last Admin: 05/06/17 18:56 Dose: Not Given Home Med (Dorzolamide 2%/Timolol 0.5% [Cosopt 2%-0.5% Opht]) 1 drop EACHEYE BID [facility] Last Admin: 05/06/17 18:55 Dose: Not Given Home Med (Tafluprost [Zioptan]) 1 drop EACHEYE HS [facility] Last Admin: 05/05/17 22:22 Dose: Not Given Insulin Human Regular (Humulin R) 0 units SC ACHS [facility] PRN Reason: Protocol Last Admin: 05/06/17 16:30 Dose: Not Given Levalbuterol HCl (Xopenex) 0.63 mg INH RQ8 [facility] Last Admin: 05/06/17 15:44 Dose: 0.63 mg Levalbuterol HCl (Xopenex) 0.63 mg INH Q4H PRN PRN Reason: Shortness of Breath Multivitamins/Minerals (Therapeutic-M Tab) 1 tab PO DAILY [facility] Last Admin: 05/06/17 09:28 Dose: 1 tab Pantoprazole Sodium (Protonix Ec Tab) 40 mg PO DAILY [facility] Last Admin: 05/06/17 09:34 Dose: 40 mg Saccharomyces Boulardii (Florastor) 250 mg PO BID [facility] Last Admin: 05/06/17 17:19 Dose: 250 mg Sitagliptin Phosphate (Januvia) 50 mg PO DAILY [facility] Last Admin: 05/06/17 09:31 Dose: 50 mg - Labs Labs: 05/06/17 06:00 05/06/17 06:00
--- NOTE | 2017-05-06 20:31 | PN ---
ENDO FOLLOWUP NOTE LOCATION: Room #711. SUMMARY: This is an 87-year-old female with recent uncontrolled type 2 insulin-requiring diabetes, now being followed closely for metabolic management. Her glycemic levels are fluctuating but much improved at this time. Her oral intake remains quite variable with suboptimal meal portions as per the nursing staff. Her latest glucose levels today have ranged from 196 to 260 mg/dL. Her latest chemistry showed BUN of 16, sodium 142, potassium 4.4, chloride 105, CO2 27, glucose 156, and creatinine 0.9. So at this time, we will continue the low-dose Januvia given at 50 mg once daily in the morning as ordered with glipizide given at 10 mg b.i.d. before meals was given. We will titrate her Januvia accordingly to optimize metabolic control. We will try to hold off any kind of initiation of any insulin therapy at this time. Plan of care was discussed with her daughter, Gloyr Gomez, today regarding the ongoing diabetic management. We will give the prescription for the oral hypoglycemic therapy and also a glucose meter at bedside. Lauryn Chandra MD
[2017-05-06] MEDS: TAFLUPROST EACHEYE SCH (21:37)
[2017-05-07] MEDS: Insulin Regular 100 units/ml SC SCH ×4 (06:48→21:19)
[2017-05-07] MEDS: Levalbuterol 0.63 MG/3 ML Inhal Soln UD INH SCH ×3 (07:30→23:52)
[2017-05-07] MEDS: Saccharomyces Boulardi 250 mg Cap PO SCH ×2 (09:00→16:39)
[2017-05-07] MEDS: Cefdinir 300 MG CAP PO SCH ×2 (09:00→16:38)
[2017-05-07] MEDS: Multivitamin With Minerals Tab PO SCH (09:01)
[2017-05-07] MEDS: Patient's Own Med (Cyclosporine [Restasis] 1 DROP) BOTHEYES SCH ×2 (09:02→16:39)
[2017-05-07] MEDS: Patient's Own Med (Dorzolamide 2%/Timolol 0.5% [Cosopt 2%-0.5% Opht] 1 DROP) EACHEYE SCH ×2 (09:02→16:39)
[2017-05-07] MEDS: Pantoprazole 40 mg EC Tab PO SCH (09:08)
--- NOTE | 2017-05-07 11:27 | CP.PCM.PN ---
Subjective - Date & Time of Evaluation Date of Evaluation: 05/07/17 Time of Evaluation: 10:00 - Subjective Subjective: Pt doing well No complaints BS was 312 today Objective - Vital Signs/Intake and Output Vital Signs (last 24 hours): Temp Pulse Resp BP Pulse Ox 97.7 F 74 20 134/72 100 05/07/17 07:53 05/07/17 09:01 05/07/17 07:53 05/07/17 09:01 05/07/17 07:53 - Medications Medications: Current Medications Acetaminophen (Tylenol 325mg Tab) 650 mg PO Q6 PRN PRN Reason: Headache Al Hydrox/Mg Hydrox/Simethicone (Maalox Plus 30 Ml) 30 ml PO Q4 PRN PRN Reason: Indigestion / Heartburn Alprazolam (Xanax) 0.25 mg PO DAILY PRN PRN Reason: Anxiety Stop: 05/14/17 09:01 Last Admin: 05/06/17 18:51 Dose: 0.25 mg Apixaban (Eliquis) 5 mg PO BID [facility] PRN Reason: Protocol Last Admin: 05/07/17 09:01 Dose: 5 mg Benzonatate (Tessalon Perles) 100 mg PO TID PRN PRN Reason: Cough Last Admin: 05/07/17 09:01 Dose: 100 mg Carvedilol (Coreg) 3.125 mg PO BID [facility] Last Admin: 05/07/17 09:01 Dose: 3.125 mg Cefdinir (Omnicef) 300 mg PO BID [facility] Last Admin: 05/07/17 09:00 Dose: 300 mg Ferrous Sulfate (Feosol) 325 mg PO BID [facility] Last Admin: 05/07/17 09:00 Dose: 325 mg Furosemide (Lasix) 20 mg PO BID [facility] Last Admin: 05/07/17 09:00 Dose: 20 mg Glipizide (Glucotrol) 10 mg PO ACBD [facility] Last Admin: 05/07/17 09:01 Dose: 10 mg Home Med (Cyclosporine [Restasis]) 1 drop BOTHEYES BID [facility] Last Admin: 05/07/17 09:02 Dose: Not Given Home Med (Dorzolamide 2%/Timolol 0.5% [Cosopt 2%-0.5% Opht]) 1 drop EACHEYE BID [facility] Last Admin: 05/07/17 09:02 Dose: Not Given Home Med (Tafluprost [Zioptan]) 1 drop EACHEYE HS [facility] Last Admin: 05/06/17 21:37 Dose: 1 drop Insulin Human Regular (Humulin R) 0 units SC [facility] PRN Reason: Protocol Last Admin: 05/07/17 06:48 Dose: Not Given Levalbuterol HCl (Xopenex) 0.63 mg INH RQ8 [facility] Last Admin: 05/07/17 07:30 Dose: 0.63 mg Levalbuterol HCl (Xopenex) 0.63 mg INH Q4H PRN PRN Reason: Shortness of Breath Multivitamins/Minerals (Therapeutic-M Tab) 1 tab PO DAILY [facility] Last Admin: 05/07/17 09:01 Dose: 1 tab Pantoprazole Sodium (Protonix Ec Tab) 40 mg PO DAILY [facility] Last Admin: 05/07/17 09:08 Dose: 40 mg Saccharomyces Boulardii (Florastor) 250 mg PO BID [facility] Last Admin: 05/07/17 09:00 Dose: 250 mg Sitagliptin Phosphate (Januvia) 50 mg PO DAILY [facility] Last Admin: 05/07/17 09:01 Dose: 50 mg - Labs Labs: 05/06/17 06:00 05/06/17 06:00
--- NOTE | 2017-05-07 16:26 | CP.PCM.PN ---
Subjective - Date & Time of Evaluation Date of Evaluation: 05/07/17 Time of Evaluation: 16:15 - Subjective Subjective: I D NOTE HGB IS 8.8 ,SIGNIFICANT DECREASE WAS DEHYDRATED ON ADMISSION POSSIBLY DILUTIONAL WILL ORDER CBC IN AM SOB,INCREASING PERIPHERAL EDEMA USUALLY A SIGNIFICANT SIGN OF CHF c HER ALONG c PRESENCE OF COUGH ,WHICH SHE ALSO HAS WILL GIVE 20MG FUROSEMIDE Objective - Vital Signs/Intake and Output Vital Signs (last 24 hours): Temp Pulse Resp BP Pulse Ox 97.7 F 74 20 134/72 100 05/07/17 07:53 05/07/17 09:01 05/07/17 07:53 05/07/17 09:01 05/07/17 07:53 - Medications Medications: Current Medications Acetaminophen (Tylenol 325mg Tab) 650 mg PO Q6 PRN PRN Reason: Headache Al Hydrox/Mg Hydrox/Simethicone (Maalox Plus 30 Ml) 30 ml PO Q4 PRN PRN Reason: Indigestion / Heartburn Alprazolam (Xanax) 0.25 mg PO DAILY PRN PRN Reason: Anxiety Stop: 05/14/17 09:01 Last Admin: 05/06/17 18:51 Dose: 0.25 mg Apixaban (Eliquis) 5 mg PO BID [facility] PRN Reason: Protocol Last Admin: 05/07/17 09:01 Dose: 5 mg Benzonatate (Tessalon Perles) 100 mg PO TID PRN PRN Reason: Cough Last Admin: 05/07/17 09:01 Dose: 100 mg Carvedilol (Coreg) 3.125 mg PO BID [facility] Last Admin: 05/07/17 09:01 Dose: 3.125 mg Cefdinir (Omnicef) 300 mg PO BID [facility] Last Admin: 05/07/17 09:00 Dose: 300 mg Ferrous Sulfate (Feosol) 325 mg PO BID [facility] Last Admin: 05/07/17 09:00 Dose: 325 mg Furosemide (Lasix) 20 mg PO BID [facility] Last Admin: 05/07/17 09:00 Dose: 20 mg Furosemide (Lasix) 20 mg PO ONCE STA Stop: 05/07/17 16:10 Glipizide (Glucotrol) 10 mg PO ACBD [facility] Last Admin: 05/07/17 09:01 Dose: 10 mg Home Med (Cyclosporine [Restasis]) 1 drop BOTHEYES BID [facility] Last Admin: 05/07/17 09:02 Dose: Not Given Home Med (Dorzolamide 2%/Timolol 0.5% [Cosopt 2%-0.5% Opht]) 1 drop EACHEYE BID [facility] Last Admin: 05/07/17 09:02 Dose: Not Given Home Med (Tafluprost [Zioptan]) 1 drop EACHEYE HS [facility] Last Admin: 05/06/17 21:37 Dose: 1 drop Insulin Human Regular (Humulin R) 0 units SC ACHS [facility] PRN Reason: Protocol Last Admin: 05/07/17 11:39 Dose: 4 unit Levalbuterol HCl (Xopenex) 0.63 mg INH RQ8 [facility] Last Admin: 05/07/17 15:27 Dose: 0.63 mg Levalbuterol HCl (Xopenex) 0.63 mg INH Q4H PRN PRN Reason: Shortness of Breath Multivitamins/Minerals (Therapeutic-M Tab) 1 tab PO DAILY [facility] Last Admin: 05/07/17 09:01 Dose: 1 tab Pantoprazole Sodium (Protonix Ec Tab) 40 mg PO DAILY [facility] Last Admin: 05/07/17 09:08 Dose: 40 mg Saccharomyces Boulardii (Florastor) 250 mg PO BID [facility] Last Admin: 05/07/17 09:00 Dose: 250 mg Sitagliptin Phosphate (Januvia) 50 mg PO DAILY [facility] Last Admin: 05/07/17 09:01 Dose: 50 mg - Labs Labs: 05/06/17 06:00 05/06/17 06:00
[2017-05-07] MEDS: TAFLUPROST EACHEYE SCH (21:18)
--- NOTE | 2017-05-07 21:19 | PN ---
ENDOCRINE FOLLOWUP NOTE DATE: LOCATION: Room 711. This is an 87-year-old female with recent uncontrolled type 2 diabetes with persistent viability of her oral intake and supervening glycemic fluctuations as noted thereof. Her glucose values today have ranged from 130-317 mg/dL. It was 153 early this morning before breakfast as noted. So at this time, we will continue the same dual oral hypoglycemic drug therapy as given with Januvia given as 50 mg daily and glipizide given as 10 mg b.i.d. before meals as ordered. We will titrate incrementally as indicated to optimize metabolic control. We will follow and advise accordingly. Lauryn Chandra MD
[2017-05-08 06:52] LABS: BASO # 0.1 K/uL (0.0-0.2); BASO % 0.8 % (0.0-2.0); EOS # 0.1 K/uL (0.0-0.7); EOS % 1.8 % (0.0-4.0); HEMATOCRIT 28.2 % (34.0-47.0); LYMPH # 0.3 K/uL (1.0-4.3); LYMPH % 4.6 % (20.0-40.0); MEAN CELL VOLUME 100.4 fl (81.0-99.0); MEAN CORPUSCULAR HEMOGLOBIN 31.8 pg (27.0-31.0); MEAN CORPUSCULAR HGB CONC 31.6 g/dL (33.0-37.0); MEAN PLATELET VOLUME 8.7 fl (7.2-11.7); MONO # 0.5 K/uL (0.0-0.8); MONO % 7.9 % (0.0-10.0); NEUT # 5.9 K/uL (1.8-7.0); NEUT % 84.9 % (50.0-75.0); NRBC % 0.1 % (0.0-0.0); PLATELET COUNT 200 K/uL (130-400); RED CELL DISTRIBUTION WIDTH 16.4 % (11.5-14.5); WHITE BLOOD COUNT 6.9 K/uL (4.8-10.8)
[2017-05-08] MEDS: Levalbuterol 0.63 MG/3 ML Inhal Soln UD INH SCH ×2 (07:38→15:44)
[2017-05-08] MEDS: Insulin Regular 100 units/ml SC SCH ×4 (07:52→21:45)
[2017-05-08 08:35] LABS: EOSINOPHIL 2 % (0-7); METAMYELOCYTE 1 % (0-0); NEUTROPHIL 85 % (42-75); TOTAL CELLS COUNTED 100
[2017-05-08 08:36] LABS: LARGE PLATELETS PRESENT
[2017-05-08] MEDS: Multivitamin With Minerals Tab PO SCH (09:10)
[2017-05-08] MEDS: Cefdinir 300 MG CAP PO SCH ×2 (09:10→17:12)
[2017-05-08] MEDS: Pantoprazole 40 mg EC Tab PO SCH (09:11)
[2017-05-08] MEDS: Saccharomyces Boulardi 250 mg Cap PO SCH ×2 (09:12→17:12)
[2017-05-08] MEDS: Patient's Own Med (Cyclosporine [Restasis] 1 DROP) BOTHEYES SCH ×2 (10:31→17:10)
[2017-05-08] MEDS: Patient's Own Med (Dorzolamide 2%/Timolol 0.5% [Cosopt 2%-0.5% Opht] 1 DROP) EACHEYE SCH ×2 (10:31→17:10)
--- NOTE | 2017-05-08 10:51 | CP.PCM.PN ---
Subjective - Date & Time of Evaluation Date of Evaluation: 05/08/17 Time of Evaluation: 10:48 - Subjective Subjective: Comfortable, seated in her bedside chair. Appetite appears to be fairly good and she consumed most of her breakfast. She does verbalize wanting to be discharged home soon. SPO2 recorded on room air at rest 92%. Of note was a reading yesterday of an SPO2 on room air with exercise at 88%. Trace ankle edema is noted bilaterally. No cyanosis. No calf tenderness. No dullness on chest percussion. Equal expansion. Breath sounds are diminished but present bilaterally. No rales or wheezes. Occasional social rhonchi are heard posteriorly at the lung bases. From a pulmonary standpoint patient is capable of being discharged home. Would have homecare company perform overnight oximetry at home to check for nocturnal desaturation. Objective - Vital Signs/Intake and Output Vital Signs (last 24 hours): Temp Pulse Resp BP Pulse Ox 97.8 F 75 20 142/66 97 05/08/17 08:23 05/08/17 09:13 05/08/17 08:23 05/08/17 09:13 05/08/17 08:23 - Medications Medications: Current Medications Acetaminophen (Tylenol 325mg Tab) 650 mg PO Q6 PRN PRN Reason: Headache Al Hydrox/Mg Hydrox/Simethicone (Maalox Plus 30 Ml) 30 ml PO Q4 PRN PRN Reason: Indigestion / Heartburn Alprazolam (Xanax) 0.25 mg PO DAILY PRN PRN Reason: Anxiety Stop: 05/14/17 09:01 Last Admin: 05/07/17 16:38 Dose: 0.25 mg Apixaban (Eliquis) 5 mg PO BID [facility] PRN Reason: Protocol Last Admin: 05/08/17 09:10 Dose: 5 mg Benzonatate (Tessalon Perles) 100 mg PO TID PRN PRN Reason: Cough Last Admin: 05/07/17 09:01 Dose: 100 mg Carvedilol (Coreg) 3.125 mg PO BID [facility] Last Admin: 05/08/17 09:13 Dose: 3.125 mg Cefdinir (Omnicef) 300 mg PO BID [facility] Last Admin: 05/08/17 09:10 Dose: 300 mg Ferrous Sulfate (Feosol) 325 mg PO BID [facility] Last Admin: 05/08/17 09:11 Dose: 325 mg Furosemide (Lasix) 20 mg PO BID [facility] Last Admin: 05/08/17 09:11 Dose: 20 mg Glipizide (Glucotrol) 10 mg PO ACBD [facility] Last Admin: 05/08/17 09:10 Dose: 10 mg Home Med (Cyclosporine [Restasis]) 1 drop BOTHEYES BID [facility] Last Admin: 05/08/17 10:31 Dose: Not Given Home Med (Dorzolamide 2%/Timolol 0.5% [Cosopt 2%-0.5% Opht]) 1 drop EACHEYE BID [facility] Last Admin: 05/08/17 10:31 Dose: Not Given Home Med (Tafluprost [Zioptan]) 1 drop EACHEYE HS [facility] Last Admin: 05/07/17 21:18 Dose: Not Given Insulin Human Regular (Humulin R) 0 units SC ACHS [facility] PRN Reason: Protocol Last Admin: 05/08/17 07:52 Dose: Not Given Levalbuterol HCl (Xopenex) 0.63 mg INH RQ8 [facility] Last Admin: 05/08/17 07:38 Dose: 0.63 mg Levalbuterol HCl (Xopenex) 0.63 mg INH Q4H PRN PRN Reason: Shortness of Breath Multivitamins/Minerals (Therapeutic-M Tab) 1 tab PO DAILY [facility] Last Admin: 05/08/17 09:10 Dose: 1 tab Pantoprazole Sodium (Protonix Ec Tab) 40 mg PO DAILY [facility] Last Admin: 05/08/17 09:11 Dose: 40 mg Saccharomyces Boulardii (Florastor) 250 mg PO BID [facility] Last Admin: 05/08/17 09:12 Dose: 250 mg Sitagliptin Phosphate (Januvia) 50 mg PO DAILY [facility] Last Admin: 05/08/17 09:11 Dose: 50 mg - Labs Labs: 05/08/17 04:00 05/06/17 06:00 Assessment and Plan (1) COPD (chronic obstructive pulmonary disease) Status: Chronic (2) Pulmonary hypertension Status: Chronic (3) Pleural effusion Status: Acute
[2017-05-08 21:06] VITALS: O2SAT 100
[2017-05-08] MEDS: TAFLUPROST EACHEYE SCH (21:44)
[2017-05-09] MEDS: Levalbuterol 0.63 MG/3 ML Inhal Soln UD INH SCH ×3 (00:38→08:50)
[2017-05-09] MEDS: Insulin Regular 100 units/ml SC SCH ×2 (07:40→11:30)
--- NOTE | 2017-05-09 08:23 | PN ---
LOCATION: Room [address] [place] [address]. SUBJECTIVE: This is an 87-year-old female with recent uncontrolled type 2 diabetes with extremes of glycemic fluctuation. Also, has variable oral intake . Checked glucose levels today, has improved and are ranging from 164 to 187 and 235 mg/dL. So at this time, we will continue the dual oral hypoglycemic drug therapy as given with Januvia given at 50 mg once daily as ordered. We will continue the glipizide given at 10 mg p.o. b.i.d. before meals as ordered. We will titrate incrementally as indicated to optimize metabolic control. We will follow and advise accordingly. Lauryn Chandra MD
[2017-05-09] MEDS: Cefdinir 300 MG CAP PO SCH (09:07)
[2017-05-09] MEDS: Pantoprazole 40 mg EC Tab PO SCH (09:07)
[2017-05-09] MEDS: Multivitamin With Minerals Tab PO SCH (09:07)
[2017-05-09] MEDS: Saccharomyces Boulardi 250 mg Cap PO SCH (09:07)
[2017-05-09 09:09] VITALS: BP 125/64; PULSE 75; TEMP 97.3
[2017-05-09] MEDS: Patient's Own Med (Dorzolamide 2%/Timolol 0.5% [Cosopt 2%-0.5% Opht] 1 DROP) EACHEYE SCH (09:19)
[2017-05-09] MEDS: Patient's Own Med (Cyclosporine [Restasis] 1 DROP) BOTHEYES SCH (09:20)
--- NOTE | 2017-05-09 14:02 | CP.PCM.PN ---
Subjective - Date & Time of Evaluation Date of Evaluation: 05/09/17 Time of Evaluation: 14:01 - Subjective Subjective: Plan for discharge to home today. Will supply prescription for overnight SpO2 recording. Objective - Vital Signs/Intake and Output Vital Signs (last 24 hours): Temp Pulse Resp BP Pulse Ox 97.3 F L 75 20 125/64 100 05/09/17 09:08 05/09/17 09:10 05/09/17 09:08 05/09/17 09:10 05/09/17 09:08 - Medications Medications: Current Medications Acetaminophen (Tylenol 325mg Tab) 650 mg PO Q6 PRN PRN Reason: Headache Al Hydrox/Mg Hydrox/Simethicone (Maalox Plus 30 Ml) 30 ml PO Q4 PRN PRN Reason: Indigestion / Heartburn Alprazolam (Xanax) 0.25 mg PO DAILY PRN PRN Reason: Anxiety Stop: 05/14/17 09:01 Last Admin: 05/08/17 17:10 Dose: 0.25 mg Apixaban (Eliquis) 5 mg PO BID [facility] PRN Reason: Protocol Last Admin: 05/09/17 09:11 Dose: 5 mg Benzonatate (Tessalon Perles) 100 mg PO TID PRN PRN Reason: Cough Last Admin: 05/07/17 09:01 Dose: 100 mg Carvedilol (Coreg) 3.125 mg PO BID [facility] Last Admin: 05/09/17 09:10 Dose: 3.125 mg Cefdinir (Omnicef) 300 mg PO BID [facility] Last Admin: 05/09/17 09:07 Dose: 300 mg Ferrous Sulfate (Feosol) 325 mg PO BID [facility] Last Admin: 05/09/17 09:11 Dose: 325 mg Furosemide (Lasix) 20 mg PO BID [facility] Last Admin: 05/09/17 09:08 Dose: 20 mg Glipizide (Glucotrol) 10 mg PO ACBD [facility] Last Admin: 05/09/17 07:11 Dose: 10 mg Home Med (Cyclosporine [Restasis]) 1 drop BOTHEYES BID [facility] Last Admin: 05/09/17 09:20 Dose: Not Given Home Med (Dorzolamide 2%/Timolol 0.5% [Cosopt 2%-0.5% Opht]) 1 drop EACHEYE BID [facility] Last Admin: 05/09/17 09:19 Dose: 1 drop Home Med (Tafluprost [Zioptan]) 1 drop EACHEYE HS [facility] Last Admin: 05/08/17 21:44 Dose: 1 drop Insulin Human Regular (Humulin R) 0 units SC ACHS [facility] PRN Reason: Protocol Last Admin: 05/09/17 11:30 Dose: 3 unit Levalbuterol HCl (Xopenex) 0.63 mg INH RQ8 [facility] Last Admin: 05/09/17 08:50 Dose: 0.63 mg Levalbuterol HCl (Xopenex) 0.63 mg INH Q4H PRN PRN Reason: Shortness of Breath Last Admin: 05/08/17 21:00 Dose: 0.63 mg Multivitamins/Minerals (Therapeutic-M Tab) 1 tab PO DAILY [facility] Last Admin: 05/09/17 09:07 Dose: 1 tab Pantoprazole Sodium (Protonix Ec Tab) 40 mg PO DAILY [facility] Last Admin: 05/09/17 09:07 Dose: 40 mg Saccharomyces Boulardii (Florastor) 250 mg PO BID [facility] Last Admin: 05/09/17 09:07 Dose: 250 mg Sitagliptin Phosphate (Januvia) 50 mg PO DAILY [facility] Last Admin: 05/09/17 09:07 Dose: 50 mg - Labs Labs: 05/08/17 04:00 05/06/17 06:00 Assessment and Plan (1) COPD (chronic obstructive pulmonary disease) Status: Chronic (2) Pulmonary hypertension Status: Chronic (3) Pleural effusion Status: Acute
--- NOTE | 2017-05-09 20:05 | PN ---
DATE: 05/09/2017 ENDO FOLLOWUP NOTE LOCATION: Room 711. SUBJECTIVE: This is an 87-year-old female with recent uncontrolled type 2 insulin-requiring diabetes, now being followed closely for metabolic management. Her glycemic levels are fluctuating, but much improved at this time. Her glucose values have ranged from 132-194 and 263 mg/dL. So at this time, we will continue the dual oral hypoglycemic drug therapy as given with Januvia given as 50 mg once daily in the morning and glipizide given as 10 mg b.i.d. before meals as ordered. We will titrate incremental as indicated to optimize metabolic control. We will follow and advise accordingly. Lauryn Chandra MD
== END 2017-05-09 14:50 | disposition home health service (06) | DRG 690 ==
LOC: H.TCU 18:25
PROVIDERS: ADMIT Internal Medicine Cardiovascular Disease; ATTEND Internal Medicine Cardiovascular Disease
PROC: 3E0F7GC Introduction of Other Therapeutic Substance into Respiratory Tract, Via Natural or Artificial Opening (ICD-10-PCS; principal; 2017-04-29)
DX: N39.0 Urinary tract infection, site not specified (principal); J90 Pleural effusion, not elsewhere classified; L89.302 Pressure ulcer of unspecified buttock, stage 2; I42.9 Cardiomyopathy, unspecified; I11.0 Hypertensive heart disease with heart failure; E11.65 Type 2 diabetes mellitus with hyperglycemia; I50.9 Heart failure, unspecified; D69.59 Other secondary thrombocytopenia; I27.2 Other secondary pulmonary hypertension; E86.0 Dehydration; I48.2 Chronic atrial fibrillation; G30.1 Alzheimer's disease with late onset; Z86.74 Personal history of sudden cardiac arrest; F02.80 Dementia in other diseases classified elsewhere, unspecified severity, without behavioral disturbance, psychotic disturbance, mood disturbance, and anxiety; J44.9 Chronic obstructive pulmonary disease, unspecified; E78.5 Hyperlipidemia, unspecified; E78.00 Pure hypercholesterolemia, unspecified; F17.200 Nicotine dependence, unspecified, uncomplicated; H35.30 Unspecified macular degeneration; H40.9 Unspecified glaucoma; I25.10 Atherosclerotic heart disease of native coronary artery without angina pectoris; I25.2 Old myocardial infarction; I34.0 Nonrheumatic mitral (valve) insufficiency; Z91.81 History of falling; R26.81 Unsteadiness on feet; Z79.01 Long term (current) use of anticoagulants; Z79.4 Long term (current) use of insulin; Z95.1 Presence of aortocoronary bypass graft; Z95.810 Presence of automatic (implantable) cardiac defibrillator; D64.9 Anemia, unspecified; K29.70 Gastritis, unspecified, without bleeding

== ENCOUNTER 2017-05-12 13:37 | Inpatient (IN) | payer MEDICARE, OTHER ==
[2017-05-12 13:37] VITALS: BMI 23.8
--- NOTE | 2017-05-12 13:53 | ED PDOC ---
HPI: SOB/CHF/COPD Time Seen by Provider: 05/12/17 13:50 Chief Complaint (Nursing): Shortness Of Breath History Per: Family Onset/Duration Of Symptoms: Days (3) Current Respiratory Medications: See Home Med List Severity: Moderate Associated Symptoms: Other (Headache) Additional Complaint(s): Recently dc'ed after admission for dehydration. Has been c/o headache and SOB. Family has noticed swelling lower ext with weeping edema. Denies chest pain or cough. Past Medical History Vital Signs: Last Vital Signs Temp 98 F 05/12/17 13:41 Pulse 77 05/12/17 13:41 Resp 20 05/12/17 13:41 BP 145/80 05/12/17 13:41 Pulse Ox 98 05/12/17 14:31 - Medical History PMH: Anemia, Atrial Fibrillation, CAD, Cardia Arrhythmia, CHF, COPD, Dementia, Diabetes, Gastritis, HTN, Hypercholesterolemia, Peripheral Edema Denies: HIV, Chronic Kidney Disease - Surgical History Surgical History: CABG, Pacemaker Denies: Appendectomy - Family History Family History: States: Unknown Family Hx - Home Medications Home Medications: Ambulatory Orders Medication Instructions Recorded Dorzolamide 2%/Timolol 0.5% 1 drop EACHEYE BID 06/17/14 [Cosopt 2%-0.5% Opht] Multimineral/Multivitamin 1 tab PO DAILY #0 tab 06/27/14 [Therapeutic-M Tab] Tafluprost [Zioptan] 1 drop EACHEYE HS 06/27/14 Aluminum Hydroxide/Magnesium 30 ml PO Q4 PRN #0 udc 07/09/14 [Maalox Plus 30 ml] Ferrous Sulfate [Feosol] 324 mg PO BID #0 ect 07/09/14 Carvedilol [Coreg] 3.125 mg PO BID 04/23/17 Pantoprazole [Protonix EC Tab] 40 mg PO DAILY 04/23/17 cycloSPORINE [Restasis] 1 drop BOTHEYES BID 04/23/17 Apixaban [Eliquis] 5 mg PO BID tab 04/29/17 Cefdinir [Omnicef] 300 mg PO BID 05/09/17 Furosemide [Lasix] 40 mg PO BID #60 udc 05/09/17 GlipiZIDE [Glucotrol] 10 mg PO ACBD #0 tab 05/09/17 Levalbuterol [Xopenex] 0.63 mg INH RQ8 PRN #0 05/09/17 SITagliptin [Januvia] 50 mg PO DAILY #0 tab 05/09/17 - Allergies Allergies/Adverse Reactions: Allergies Allergy/AdvReac Type Severity Reaction Status Date / Time Sulfa (Sulfonamide Allergy ITCHING Verified 04/29/17 18:25 Antibiotics) preservatives Allergy Unknown SWELLING Uncoded 10/01/14 15:06 Review of Systems ROS Statement: Except As Marked, All Systems Reviewed And Found Negative Cardiovascular: Negative for: Chest Pain Respiratory: Positive for: Shortness of Breath Neurological: Positive for: Headache Physical Exam - Reviewed Nursing Documentation Reviewed: Yes Vital Signs Reviewed: Yes - Physical Exam Appears: Positive for: Non-toxic, No Acute Distress Head Exam: Positive for: ATRAUMATIC, NORMAL INSPECTION, NORMOCEPHALIC Skin: Positive for: Normal Color, Warm, DRY Eye Exam: Positive for: EOMI, Normal appearance, PERRL ENT: Positive for: Normal ENT Inspection Neck: Positive for: Normal, Painless ROM Cardiovascular/Chest: Positive for: Regular Rate, Rhythm Respiratory: Positive for: CNT, Normal Breath Sounds Gastrointestinal/Abdominal: Positive for: Bowel Sounds, Soft, Distended. Negative for: Tenderness Back: Positive for: Normal Inspection Extremity: Positive for: Normal ROM, Swelling (2 + edema lower ext with excoriation right pretibial area) Neurologic/Psych: Positive for: Alert. Negative for: Motor/Sensory Deficits - Laboratory Results Result Diagrams: 05/12/17 13:50 05/12/17 13:50 - ECG O2 Sat by Pulse Oximetry: 100 Disposition - Clinical Impression Clinical Impression: Pleural effusion - Patient ED Disposition Is Patient to be Admitted: Yes - Disposition Disposition Time: 15:13 Condition: FAIR Forms: [employer] ([place]ic) - Pt Status Changed To: Hospital Disposition Of: Observation - POA Present On Arrival: None
[2017-05-12 14:04] LABS: BASO % 0.5 % (0.0-2.0); EOS # 0.1 K/uL (0.0-0.7); EOS % 1.2 % (0.0-4.0); HEMATOCRIT 31.8 % (34.0-47.0); LYMPH # 0.4 K/uL (1.0-4.3); LYMPH % 4.8 % (20.0-40.0); MEAN CELL VOLUME 101.4 fl (81.0-99.0); MEAN CORPUSCULAR HEMOGLOBIN 31.8 pg (27.0-31.0); MEAN CORPUSCULAR HGB CONC 31.3 g/dL (33.0-37.0); MEAN PLATELET VOLUME 10.2 fl (7.2-11.7); MONO # 0.6 K/uL (0.0-0.8); MONO % 6.7 % (0.0-10.0); NEUT # 7.5 K/uL (1.8-7.0); NEUT % 86.8 % (50.0-75.0); NRBC % 0.1 % (0.0-0.0); PLATELET COUNT 228 K/uL (130-400); RED CELL DISTRIBUTION WIDTH 17.3 % (11.5-14.5); WHITE BLOOD COUNT 8.6 K/uL (4.8-10.8)
[2017-05-12 14:13] LABS: ALB/GLOB RATIO 1.1 (1.0-2.1); ALKALINE PHOSPHATASE 96 U/L (38-126); ALT/SGPT 27 U/L (9-52); AST/SGOT 35 U/L (14-36); BILIRUBIN,TOTAL 0.7 mg/dl (0.2-1.3); BLOOD UREA NITROGEN 27 mg/dl (7-17); CALCIUM 9.4 mg/dL (8.4-10.2); CARBON DIOXIDE 31 mmol/L (22-30); CHLORIDE 102 mmol/L (98-107); GFR AFRICAN-AMERICAN > 60; GLUCOSE,RANDOM 166 mg/dL (65-105); POTASSIUM 4.6 MMOL/L (3.6-5.0); SODIUM 145 mmol/l (132-148); TOTAL PROTEIN 7.6 G/DL (6.3-8.2)
--- NOTE | 2017-05-12 14:43 | CT ---
PROCEDURE: CT HEAD WITHOUT CONTRAST. HISTORY: r/o bleed COMPARISON: Unenhanced head CT 05/07/2010 TECHNIQUE: Axial computed tomography images were obtained through the head/brain without intravenous contrast. Radiation dose: Total exam DLP = 1002 mGy-cm. This CT exam was performed using one or more of the following dose reduction techniques: Automated exposure control, adjustment of the mA and/or kV according to patient size, and/or use of iterative reconstruction technique. FINDINGS: HEMORRHAGE: No intracranial hemorrhage. BRAIN: Diffuse cerebral atrophy chronic rare microangiopathy are reiterated in the interval pattern not dramatically changed. The ventricular system remains dilated throughout, probably reflecting central atrophy though an element of an normal pressure hydrocephalus is not completely excluded. No suspicious extra-axial fluid collection. No midline shift. No cortical edema is appreciated that would suggest an acute or subacute brain infarction and there is no mass-effect. VENTRICLES: As above. CALVARIUM: Unremarkable. PARANASAL SINUSES: Unremarkable as visualized. No significant inflammatory changes. MASTOID AIR CELLS: Left mastoiditis. OTHER FINDINGS: None. IMPRESSION: No definite acute intracranial findings. However, stable dilated of the ventricular system is appreciated diffusely as compared to prior head CT 05/07/2010. No mass effect, intracranial hemorrhage or CT sign of brain infarction. No fracture of the calvarium including skullbase. Age related neuro degenerative changes are reiterated.
[2017-05-12 15:19] LABS: BASOPHIL 1 % (0-2); NEUTROPHIL 88 % (42-75); TOTAL CELLS COUNTED 100
[2017-05-12 15:21] LABS: LARGE PLATELETS PRESENT
--- NOTE | 2017-05-12 16:12 | CT ---
PROCEDURE: CT Abdomen and Pelvis without intravenous contrast HISTORY: r/o kidney stone COMPARISON: Prior and pelvis CT 04/23/2012 TECHNIQUE: Helical CT of the and pelvis performed without oral or intravenous contrast administered as requested.. Contrast Dose: None Radiation dose: Total exam DLP = 822 mGy-cm. This CT exam was performed using one or more of the following dose reduction techniques: Automated exposure control, adjustment of the mA and/or kV according to patient size, and/or use of iterative reconstruction technique. FINDINGS: LOWER THORAX: A mild right pleural effusion is recurrent or chronic. Trace left pleural effusion is also again identified. Cardiomegaly is noted with multiple pacemaker leads identified in the heart. LIVER: Restrained motion distortion imaging through the upper abdomen with the gallbladder distended. The liver appears grossly nonfocal as well as spleen in this unenhanced exam. The stomach is completely collapsed. Pancreas is atrophic without gross mass related. Bilateral adrenal glands appear normal. Limited perihepatic ascites is noted. GALLBLADDER AND BILE DUCTS: As above PANCREAS: As above SPLEEN: As above ADRENALS: As above KIDNEYS AND URETERS: A small probable hyperdense cyst is seen at the lower pole right kidney with an additional small hyperdensity immediately medial to it, too small to characterize. No obstructive uropathy is appreciated bilaterally. Streaky bilateral perinephric changes are appreciated which are nonspecific. A simple cyst again seen the upper pole left kidney. Midpole bilateral renal calcifications may reflect intrarenal calculi versus vascular calcifications. VASCULATURE: Unremarkable. No aortic aneurysm. BOWEL: The bowel is not appear obstructed. Motion artifacts from the patient's arms as well as peristalsis throughout the bowel limits the evaluation of the bowel. Lack intravenous and oral contrast inhibits evaluation as well. Mild pelvic ascites is appreciated. Sigmoid diverticulosis identified without prominent diverticulitis pattern. Large and small bowel did not appear obstructed. APPENDIX: The appendix not identified. PERITONEUM: As above. No free intrarenal gas however. LYMPH NODES: Unremarkable. No enlarged lymph nodes. BLADDER: Unremarkable. REPRODUCTIVE: Prior hysterectomy suggested. BONES: Diffuse osteopenia suggests osteoporosis. OTHER FINDINGS: None. IMPRESSION: 1. No bowel or urinary tract tract obstruction is appreciated although punctate intrarenal calculi are considered versus vascular calcifications at the midpole bilateral kidneys. Nonspecific streaky streaky perinephric changes seen bilaterally. No perinephric fluid collection. 2. Sigmoid diverticulosis without definitive diverticulitis. 3. Limited perihepatic and pelvic ascites of uncertain origin. 4. Prior hysterectomy. 5. Lack of oral and intravenous contrast agents limits interpretation significantly. 6. Mild left, minimal right pleural effusions chronic or recurrent. Cardiomegaly.
--- NOTE | 2017-05-12 17:33 | RAD ---
HISTORY: cough COMPARISON: Portable chest 05/01/2017 FINDINGS: LUNGS: Pacemaker/ implantable defibrillator again identified as well as sternotomy wires. Small right pleural effusion is now identified with none on the left. Right basilar atelectasis and/or infiltrate is developing. None is seen the left. Cardiomegaly is stable. No pulmonary vascular derangement. Trachea is midline. No pneumothorax PLEURA: As above. CARDIOVASCULAR: As above. OSSEOUS STRUCTURES: No significant abnormalities. VISUALIZED UPPER ABDOMEN: Normal. OTHER FINDINGS: None. IMPRESSION: Developing a limited right pleural effusion and basilar atelectasis or infiltrate with none identified at the left. Cardiomegaly appears stable. No definite pulmonary vascular derangement.
[2017-05-12 18:35] LABS: RBC URINE 35 /hpf (0-3); URINE BACTERIA OCC (<OCC); URINE BILIRUBIN NEGATIVE (NEGATIVE); URINE BLOOD MODERATE (NEGATIVE); URINE COLOR YELLOW (YELLOW); URINE GLUCOSE (UA) NEG (Normal); URINE KETONE NEGATIVE (NEGATIVE); URINE LEUKOCYTE ESTERASE TRACE Leu/uL (Negative); URINE PROTEIN NEGATIVE (NEGATIVE); URINE UROBILINOGEN 0.2-1.0 mg/dL (0.2-1.0); WBC URINE 3 /hpf (0-5)
[2017-05-13] MEDS ORDERED: CEFUROXIME AXETIL 500 MG PO SCH (09:00)
--- NOTE | 2017-05-13 09:12 | CP.PCM.HP ---
History of Present Illness - History of Present Illness History of Present Illness: this 87-year-old female was brought to the emergency room by her family for complaints of worsening shortness of breath and persistent headaches along with abdominal discomfort which is unrelenting since her recent discharge from the hospital approximately 4 days back. The patient also had developed significant pedal edema. The patient has a long medical history which includes coronary artery disease which caused an inferior wall myocardial infarction in 1987. She had a cardiac arrest in 1992 from which she was revived and coronary bypass graft surgery as well as AICD implant was carried out. The AICD has been revised multiple times over the last 24 years. The patient has had atrial fibrillation and eventually underwent an AV node ablation and now is totally dependent on a VVI pacemaker. The patient has a had a history of hypertension and recently was found to be diabetic as well. She was a chronic smoker and has had significant COPD as a consequence of it. The patient is also down rule out dementia which is progressive. The patient was recently hospitalized for urinary tract infection and sepsis during which she was hospitalized with acute kidney injury and required intravenous fluids to resolve acute kidney injury. She spent approximately 14 days in transitional care unit and was able to ambulate with minimal dyspnea on exertion. Following her discharge she developed a persistent headache which was not accompanied by any vomiting or diplopia. She also developed significant shortness of breath and worsening pedal edema in spite of aggressive dialytic therapy at 40 mg of Lasix given twice a day. There was also abdominal distention and discomfort. This was not accompanied by any nausea vomiting or diarrhea. There was no fever. The patient has been chronically anticoagulated with oral Novel anticoagulates. On physical examination this is an elderly lady who recognized me readily. She reported that she had had a comfortable night. She was afebrile and was able to live virtually flat and breathe at 16-18 breaths per minute. Her jugular venous pressure was mildly elevated and there was minimal pitting edema over both lower extremities. Her pedal pulses were feeble but distinct present. There were no carotid bruits. Scar of sternotomy was evident. An AICD was present in the left infraclavicular area. The apex was in the 6 pain is in the anterior axillary line. There is an apical systolic murmur of mitral regurgitation. There were few scattered rales at both bases. Abdomen was soft liver and spleen are not palpable. Her electric cart a gram showed atrial fibrillation with a VVI paced rhythm. Her pulse oximetry on 2 L of oxygen by nasal cannula was 97%. Her lab data was noted. CT scan of the head and CT scan of the abdomen did not show any significant abnormality. There was evidence off a moderate sized right pleural effusion. Impression: congestive cardiac failure which is left ventricular acute on chronic and systolic. (Her left ventricular ejection fraction on last echocardiogram was 20%.) coronary artery disease with Status post coronary bypass graft surgery old inferior wall myocardial infarction and chronic atrial fibrillation. AV node ablation with VVI paced rhythm. Severe COPD. Dementia.diabetes mellitus type 2. The patient has been kept off of oral anticoagulation and would be evaluated for possible right pleural tap. She will be aggressively treated with intravenous Lasix in an attempt to resolve the volume overload issue. Present on Admission - Present on Admission Any Indicators Present on Admission: No Past Patient History - Infectious Disease Hx of Infectious Diseases: None - Tetanus Immunizations Tetanus Immunization: Unknown - Past Medical History & Family History Past Medical History?: Yes - Past Social History Smoking Status: Former Smoker - CARDIAC Hx Cardiac Disorders: Yes Hx Atrial Fibrillation: Yes Hx Congestive Heart Failure: Yes Hx Hypercholesterolemia: Yes Hx Pacemaker: Yes Hx Peripheral Edema: Yes - PULMONARY Hx Respiratory Disorders: Yes Hx Chronic Obstructive Pulmonary Disease (COPD): Yes - NEUROLOGICAL Hx Neurological Disorder: Yes Hx Dementia: Yes - HEENT Hx HEENT Problems: Yes Hx Cataracts: Yes Hx Macular Degeneration: Yes - RENAL Hx Chronic Kidney Disease: No - ENDOCRINE/METABOLIC Hx Endocrine Disorders: Yes Hx Diabetes Mellitus Type 2: Yes - HEMATOLOGICAL/ONCOLOGICAL Hx Blood Disorders: Yes Hx AIDS: No Hx Anemia: Yes Hx Human Immunodeficiency Virus (HIV): No - INTEGUMENTARY Hx Dermatological Problems: No - MUSCULOSKELETAL/RHEUMATOLOGICAL Hx Musculoskeletal Disorders: Yes Hx Falls: Yes (2x past month) - GASTROINTESTINAL Hx Gastrointestinal Disorders: Yes Hx Gastritis: Yes - GENITOURINARY/GYNECOLOGICAL Hx Genitourinary Disorders: Yes Hx Incontinence: Yes Other/Comment: Current incontinence - PSYCHIATRIC Hx Psychophysiologic Disorder: No Hx Substance Use: No - SURGICAL HISTORY Hx Surgeries: Yes Hx Appendectomy: No Hx Coronary Artery Bypass Graft: Yes - ANESTHESIA Hx Anesthesia: Yes Hx Anesthesia Reactions: No Hx Malignant Hyperthermia: No Meds Allergies/Adverse Reactions: Allergies Allergy/AdvReac Type Severity Reaction Status Date / Time Sulfa (Sulfonamide Allergy ITCHING Verified 04/29/17 18:25 Antibiotics) preservatives Allergy Unknown SWELLING Uncoded 10/01/14 15:06 Results - Vital Signs Recent Vital Signs: Last Vital Signs Temp 98.6 F 05/13/17 08:00 Pulse 75 05/13/17 08:00 Resp 20 05/13/17 08:00 BP 127/72 05/13/17 08:00 Pulse Ox 92 L 05/13/17 08:00 - Labs Result Diagrams: 05/12/17 13:50 05/12/17 13:50 Labs: Laboratory Results - last 24 hr 05/12/17 18:25 Urine Color Yellow Urine Clarity Cloudy Urine pH 5.0 Ur Specific [place] 1.011 Urine Protein Negative Urine Glucose (UA) Neg Urine Ketones Negative Urine Blood Moderate Urine Nitrate Negative Urine Bilirubin Negative Urine Urobilinogen 0.2-1.0 Ur Leukocyte Esterase Trace Urine RBC (Auto) 35 H Urine Microscopic WBC 3 Ur Squamous Epith Cells 2 Urine Bacteria Occ H Hyaline Casts 6-10 H
[2017-05-13] MEDS: Pantoprazole 40 mg EC Tab PO SCH (09:37)
[2017-05-13] MEDS: Multivitamin With Minerals Tab PO SCH (09:37)
--- NOTE | 2017-05-13 10:19 | CP.PCM.CON ---
History of Present Illness - History of Present Illness History of Present Illness: This 87-year-old female who is a former cigarette smoker is well known to me from prior hospitalizations. She was recently discharged from hospital after an episode of decompensated congestive cardiac failure. While at home she began to complain of increasing shortness of breath associated with decreasing SPO2 readings and headaches. As per family members she also developed significant dependent edema of both lower extremities to a point where there was weeping of fluid from the feet. She denied any chest pain. There was no known fever or chills. She has an extensive cardiac history complicated by arrhythmia as well as cardiomyopathy and prior HI/cardiac arrest. She does have an AICD implanted. Other comorbid conditions have included, GI bleeding, COPD and dementia. Past Patient History - Infectious Disease Hx of Infectious Diseases: None - Tetanus Immunizations Tetanus Immunization: Unknown - Past Medical History & Family History Past Medical History?: Yes - Past Social History Smoking Status: Former Smoker Chewing Tobacco Use: No Cigar Use: No Alcohol: Social Drugs: Denies Home Situation {Lives}: With Family - CARDIAC Hx Atrial Fibrillation: Yes Hx Congestive Heart Failure: Yes Hx Hypercholesterolemia: Yes Hx Pacemaker: Yes Hx Peripheral Edema: Yes - PULMONARY Hx Chronic Obstructive Pulmonary Disease (COPD): Yes - NEUROLOGICAL Hx Dementia: Yes - HEENT Hx Cataracts: Yes Hx Macular Degeneration: Yes - RENAL Hx Chronic Kidney Disease: No - ENDOCRINE/METABOLIC Hx Diabetes Mellitus Type 2: Yes - HEMATOLOGICAL/ONCOLOGICAL Hx AIDS: No Hx Anemia: Yes Hx Human Immunodeficiency Virus (HIV): No - INTEGUMENTARY Hx Dermatological Problems: No - MUSCULOSKELETAL/RHEUMATOLOGICAL Hx Falls: Yes (2x past month) - GASTROINTESTINAL Hx Gastritis: Yes Other/Comment: GI bleed - GENITOURINARY/GYNECOLOGICAL Hx Incontinence: Yes Other/Comment: Current incontinence - PSYCHIATRIC Hx Psychophysiologic Disorder: No Hx Substance Use: No - SURGICAL HISTORY Hx Coronary Artery Bypass Graft: Yes Other/Comment: AICD implant. - ANESTHESIA Hx Anesthesia: Yes Hx Anesthesia Reactions: No Hx Malignant Hyperthermia: No Meds Allergies/Adverse Reactions: Allergies Allergy/AdvReac Type Severity Reaction Status Date / Time Sulfa (Sulfonamide Allergy ITCHING Verified 04/29/17 18:25 Antibiotics) preservatives Allergy Unknown SWELLING Uncoded 10/01/14 15:06 - Medications Medications: Current Medications Allopurinol (Zyloprim) 100 mg PO DAILY [facility] Last Admin: 05/13/17 09:37 Dose: 100 mg Alprazolam (Xanax) 0.25 mg PO BID PRN PRN Reason: Anxiety Stop: 05/19/17 18:04 Carvedilol (Coreg) 3.125 mg PO BID [facility] Last Admin: 05/13/17 09:36 Dose: 3.125 mg Ferrous Sulfate (Feosol) 325 mg PO BID [facility] Last Admin: 05/13/17 09:36 Dose: 325 mg Furosemide (Lasix) 40 mg IVP DAILY [facility] Last Admin: 05/13/17 09:39 Dose: 40 mg Home Med (Cyclosporine [Restasis]) 1 drop BOTHEYES BID [facility] Home Med (Dorzolamide 2%/Timolol 0.5% [Cosopt 2%-0.5% Opht]) 1 drop EACHEYE BID [facility] Home Med (Tafluprost/Pf [Zioptan 0.0015% Eye Drops]) 1 drop EACHEYE HS [facility] Multivitamins/Minerals (Therapeutic-M Tab) 1 tab PO DAILY [facility] Last Admin: 05/13/17 09:37 Dose: 1 tab Pantoprazole Sodium (Protonix Ec Tab) 40 mg PO DAILY [facility] Last Admin: 05/13/17 09:37 Dose: 40 mg Sitagliptin Phosphate (Januvia) 50 mg PO DAILY [facility] Last Admin: 05/13/17 09:36 Dose: 50 mg Physical Exam - Additional Findings Additional findings: Well-nourished well-developed, no acute distress. Neck is supple and trachea is midline. No neck vein distention is noted. Carotids are equal with diminished upstroke bilaterally. No bruit. No cervical adenopathy. No palpable thyroid enlargement. No supraclavicular or axillary adenopathy. Pharynx is pink and mucous membranes are moist. No exudate. Conjunctivae are pale and there is no scleral icterus. Nares are patent bilaterally, no bleeding or exudate. Chest: Dullness to percussion noted at the right base posteriorly. Equal expansion. Lungs: Breath sounds are diminished but present bilaterally (more diminished in the right base). There are no audible rales or wheezes heard. No bronchial breath sounds. No egophony. Heart: Regular, systolic murmur is heard along the left sternal border and at the apex. Abdomen is soft and nontender. Bowel sounds appear normal. There is no palpable hepatosplenomegaly or mass. No hepatojugular reflux. Lower extremities: No cyanosis. Scattered varicose veins are noted in both lower extremities. Trace edema of the feet bilaterally. No weeping noted presently, but there are a few areas healing suggestive of prior open wounds. No calf tenderness or palpable venous cords. No Homans sign. She is awake, alert and oriented x3. Results - Vital Signs Recent Vital Signs: Last Vital Signs Temp 98.6 F 05/13/17 08:00 Pulse 75 05/13/17 09:36 Resp 20 05/13/17 08:00 BP 127/72 05/13/17 09:39 Pulse Ox 92 L 05/13/17 08:00 - Labs Result Diagrams: 05/12/17 13:50 05/12/17 13:50 Labs: Laboratory Results - last 24 hr 05/12/17 18:25 Urine Color Yellow Urine Clarity Cloudy Urine pH 5.0 Ur Specific [place] 1.011 Urine Protein Negative Urine Glucose (UA) Neg Urine Ketones Negative Urine Blood Moderate Urine Nitrate Negative Urine Bilirubin Negative Urine Urobilinogen 0.2-1.0 Ur Leukocyte Esterase Trace Urine RBC (Auto) 35 H Urine Microscopic WBC 3 Ur Squamous Epith Cells 2 Urine Bacteria Occ H Hyaline Casts 6-10 H Assessment & Plan (1) Pleural effusion Status: Acute Priority: High (2) Anemia Status: Chronic Priority: High (3) COPD (chronic obstructive pulmonary disease) Status: Chronic Priority: High (4) Pulmonary hypertension Status: Chronic Priority: High - Assessment and Plan (Free Text) Plan: Maximize medical management of HFrEF. Supplemental oxygen as much for the pulmonary hypertension as well as the low SpO2. Consider thoracentesis if not improved with the above. Moderate hypercapnea (respiratory insufficiency) chronic/compensated. - Date & Time Date: 05/13/17 Time: 10:46
[2017-05-13 13:06] LABS: ABG ALLEN TEST YES; ARTERIAL BLOOD FLOW 2; ARTERIAL BLOOD GAS HCO3 32.1 mmol/L (21-28); ARTERIAL BLOOD GAS MODE NC; ARTERIAL BLOOD GAS O2 CAPACITY 13.6 mL/dL (16-24); ARTERIAL BLOOD GAS O2 CONTENT 13.3 ML/dL (15-23); ARTERIAL BLOOD GAS PH 7.42 (7.35-7.45); ARTERIAL BLOOD GAS PO2 133 mm/Hg (80-100); ARTERIAL BLOOD HGB O2 SAT 96.2 % (95.0-98.0); CARBOXYHEMOGLOBIN 0.8 % (0.5-1.5); HHB 2.1 % (0.0-5.0); METHEMOGLOBIN 0.9 % (0.0-3.0)
[2017-05-13] MEDS: Patient's Own Med (Cyclosporine [Restasis] 1 DROP) BOTHEYES SCH (17:16)
[2017-05-13] MEDS: Patient's Own Med (Dorzolamide 2%/Timolol 0.5% [Cosopt 2%-0.5% Opht] 1 DROP) EACHEYE SCH (17:17)
--- NOTE | 2017-05-13 17:57 | CARD ---
APPROVED REPORT EXAM: Two-dimensional and M-mode echocardiogram with Doppler and color Doppler. Other Information Quality : GoodRhythm : Pacemaker INDICATION Pleural Effusion Chest Pain 2D DIMENSIONS IVSd1.34 (0.7-1.1cm)LVDd5.50 (3.9-5.9cm) LVOT Diameter1.87 (1.8-2.4cm)PWd0.73 (0.7-1.1cm) IVSs1.28 (0.8-1.2cm)LVDs5.05 (2.5-4.0cm) FS (%) 8.3 %PWs1.05 (0.8-1.2cm) LVEF (%)20.0 (>50%) M-Mode DIMENSIONS Left Atrium (MM)4.04 (2.5-4.0cm)IVSd0.89 (0.7-1.1cm) Aortic Root3.01 (2.2-3.7cm)LVDd5.46 (4.0-5.6cm) Aortic Cusp Exc.1.29 (1.5-2.0cm)PWd0.89 (0.7-1.1cm) IVSs1.26 cmFS (%) 18 % LVDs4.50 (2.0-3.8cm)PWs1.19 cm Mitral Valve E/A ratio0.0 TDI E/Lateral E'0.0E/Medial E'0.0 Pulmonary Valve PV Peak Degqxerk30.1cm/s Tricuspid Valve TR Peak [id number]/sRAP [id number] Peak Gr.40mmHg [id number] LEFT VENTRICLE The left ventricle is normal size. There is mild concentric left ventricular hypertrophy. The systolic function is severely impaired. Severly hypokinetic septum A Fib No left ventricle thrombus noted on this study. RIGHT VENTRICLE The right ventricle is moderately dilated. There is normal right ventricular wall thickness. RV Systolic function is severely reduced. There are 2 pacemaker leads in the right ventricle. ATRIA The left atrium is moderately dilated. The right atrium is severely dilated. AORTIC VALVE The aortic valve is not well visualized. No aortic regurgitation is present. There is no aortic valvular stenosis. MITRAL VALVE The mitral valve is moderately thickened. There is no mitral valve stenosis. Mitral regurgitation is moderate to severe. The mitral regurgitant jet is eccentrically directed. TRICUSPID VALVE The tricuspid valve is normal in structure There is severe tricuspid regurgitation. There is moderate pulmonary hypertension. PULMONIC VALVE The pulmonary valve is normal in structure and function. There is no pulmonic valvular regurgitation. GREAT VESSELS The aortic root is normal in size. The IVC is dilated. PERICARDIAL EFFUSION The pericardium appears normal. <Conclusion> The left ventricle is normal size. There is mild concentric left ventricular hypertrophy. The systolic function of both ventricles are severely impaired. Severly hypokinetic septum No left ventricle thrombus noted on this study. Mitral regurgitation is moderate to severe. The mitral regurgitant jet is eccentrically directed. There is severe tricuspid regurgitation. There is moderate pulmonary hypertension.
[2017-05-13] MEDS: TAFLUPROST EACHEYE SCH (21:53)
--- NOTE | 2017-05-13 23:46 | CARD ---
APPROVED REPORT EKG Measurement Heart [id number] <Conclusion> Cn-[id number]-onfod rhythm Abnormal ECG
[2017-05-14] MEDS: Multivitamin With Minerals Tab PO SCH (09:02)
[2017-05-14] MEDS: Pantoprazole 40 mg EC Tab PO SCH (09:03)
--- NOTE | 2017-05-14 10:18 | CP.PCM.PN ---
Subjective - Date & Time of Evaluation Date of Evaluation: 05/14/17 Time of Evaluation: 09:45 - Subjective Subjective: Pt sitting up in a chair No resp distress Has eaten a fait amount of breakfast No pedal oedema, JVP flat Few basal rales Echo reviewed Severe LV wall motion abnormalities with severely depressed LVEF (~10%) Severe MR and TR with PA syst pressures >50 mm Hg ABGs on FiO2 28% show pCo2 54 mm Hg with normal pH pO2 133 mm Hg Have recommended Rt pleural tap to improve minute ventilation anf CO2 retention Family evaluating this recommendation. Will switch Lasix to PO Objective - Vital Signs/Intake and Output Vital Signs (last 24 hours): Temp Pulse Resp BP Pulse Ox 97.5 F L 76 18 126/80 95 05/14/17 08:00 05/14/17 09:03 05/14/17 08:00 05/14/17 09:04 05/14/17 08:00 - Medications Medications: Current Medications Acetaminophen (Tylenol 325mg Tab) 650 mg PO Q6 PRN PRN Reason: Headache Last Admin: 05/13/17 17:15 Dose: 650 mg Allopurinol (Zyloprim) 100 mg PO DAILY [facility] Last Admin: 05/14/17 09:03 Dose: 100 mg Alprazolam (Xanax) 0.25 mg PO BID PRN PRN Reason: Anxiety Stop: 05/19/17 18:04 Last Admin: 05/14/17 02:34 Dose: 0.25 mg Carvedilol (Coreg) 3.125 mg PO BID [facility] Last Admin: 05/14/17 09:03 Dose: 3.125 mg Ferrous Sulfate (Feosol) 325 mg PO BID [facility] Last Admin: 05/14/17 09:03 Dose: 325 mg Furosemide (Lasix) 40 mg IVP DAILY [facility] Last Admin: 05/14/17 09:04 Dose: 40 mg Home Med (Cyclosporine [Restasis]) 1 drop BOTHEYES BID [facility] Last Admin: 05/13/17 17:16 Dose: 1 drop Home Med (Dorzolamide 2%/Timolol 0.5% [Cosopt 2%-0.5% Opht]) 1 drop EACHEYE BID [facility] Last Admin: 05/13/17 17:17 Dose: 1 drop Home Med (Tafluprost/Pf [Zioptan 0.0015% Eye Drops]) 1 drop EACHEYE [facility] Last Admin: 05/13/17 21:53 Dose: 1 drop Multivitamins/Minerals (Therapeutic-M Tab) 1 tab PO DAILY [facility] Last Admin: 05/14/17 09:02 Dose: 1 tab Pantoprazole Sodium (Protonix Ec Tab) 40 mg PO DAILY [facility] Last Admin: 05/14/17 09:03 Dose: 40 mg Sitagliptin Phosphate (Januvia) 50 mg PO DAILY [facility] Last Admin: 05/14/17 09:03 Dose: 50 mg
[2017-05-14] MEDS: Patient's Own Med (Dorzolamide 2%/Timolol 0.5% [Cosopt 2%-0.5% Opht] 1 DROP) EACHEYE SCH ×2 (10:20→17:10)
[2017-05-14] MEDS: Patient's Own Med (Cyclosporine [Restasis] 1 DROP) BOTHEYES SCH ×2 (10:20→17:10)
--- NOTE | 2017-05-14 10:53 | CP.PCM.PN ---
Subjective - Date & Time of Evaluation Date of Evaluation: 05/14/17 Time of Evaluation: 10:50 - Subjective Subjective: Seated in bedside chair. Appears comfortable, offers no complaints. SpO2 94% with supplemental nasal oxygen. No dependant edema noted, no cyanosis. Dullness to percussion at the right base with diminished breath sounds in the same area. No audible wheezing, no bronchial breathing. Occasional rhonchi in LL's, rare rales in the LLL. Followup chest x-ray tomorrow morning. Continue present regimen. Objective - Vital Signs/Intake and Output Vital Signs (last 24 hours): Temp Pulse Resp BP Pulse Ox 97.5 F L 76 18 126/80 95 05/14/17 08:00 05/14/17 09:03 05/14/17 08:00 05/14/17 09:04 05/14/17 08:00 - Medications Medications: Current Medications Acetaminophen (Tylenol 325mg Tab) 650 mg PO Q6 PRN PRN Reason: Headache Last Admin: 05/13/17 17:15 Dose: 650 mg Allopurinol (Zyloprim) 100 mg PO DAILY [facility] Last Admin: 05/14/17 09:03 Dose: 100 mg Alprazolam (Xanax) 0.25 mg PO BID PRN PRN Reason: Anxiety Stop: 05/19/17 18:04 Last Admin: 05/14/17 02:34 Dose: 0.25 mg Carvedilol (Coreg) 3.125 mg PO BID [facility] Last Admin: 05/14/17 09:03 Dose: 3.125 mg Ferrous Sulfate (Feosol) 325 mg PO BID [facility] Last Admin: 05/14/17 09:03 Dose: 325 mg Furosemide (Lasix) 40 mg PO DAILY [facility] Home Med (Cyclosporine [Restasis]) 1 drop BOTHEYES BID [facility] Last Admin: 05/14/17 10:20 Dose: 1 drop Home Med (Dorzolamide 2%/Timolol 0.5% [Cosopt 2%-0.5% Opht]) 1 drop EACHEYE BID [facility] Last Admin: 05/14/17 10:20 Dose: 1 drop Home Med (Tafluprost/Pf [Zioptan 0.0015% Eye Drops]) 1 drop EACHEYE HS [facility] Last Admin: 05/13/17 21:53 Dose: 1 drop Multivitamins/Minerals (Therapeutic-M Tab) 1 tab PO DAILY [facility] Last Admin: 05/14/17 09:02 Dose: 1 tab Pantoprazole Sodium (Protonix Ec Tab) 40 mg PO DAILY [facility] Last Admin: 05/14/17 09:03 Dose: 40 mg Sitagliptin Phosphate (Januvia) 50 mg PO DAILY [facility] Last Admin: 05/14/17 09:03 Dose: 50 mg Assessment and Plan (1) Pleural effusion Status: Acute (2) Anemia Status: Chronic (3) COPD (chronic obstructive pulmonary disease) Status: Chronic (4) Pulmonary hypertension Status: Chronic
[2017-05-14] MEDS ORDERED: Lidocaine 1% Inj (20ml) ONE (13:50)
--- NOTE | 2017-05-14 14:09 | PCM.SURG1 ---
Surgeon's Initial Post Op Note - Surgeon's Notes Surgeon: Jostin Tello MD Geochemist: NONE Pre-Operative Diagnosis: Right pleural effusion Operative Findings: US showed a moderate right effusion Post-Operative Diagnosis: Right pleural effusion Operation Performed: US guided right thoracentesis. Specimen/Specimens Removed: 700 cc of shailesh colored fluid Estimated Blood Loss: EBL {In ML}: 0 Blood Products Given: N/A Drains Used: No Drains Post-Op Condition: Fair Date of Surgery/Procedure: 05/14/17 Time of Surgery/Procedure: 14:00
--- NOTE | 2017-05-14 16:01 | CON ---
DATE: 05/14/2017 CHIEF COMPLAINT: Headache. HISTORY OF PRESENT ILLNESS: An 87-year-old woman with longstanding past medical history of myocardial infarction in 1987, cardiac arrest in 1992 for which she was revived and had coronary bypass graft surgery as well with AICD implant, history of hypertension, history of type 2 diabetes, chronic smoker, history of COPD as a consequence chronic smoking, history of dementia, which is progressive who came to the hospital with complaints of shortness of breath and intermittent headaches. She has chronic retained CO2 by looking at her ABG. History is obtained from the primary care team as well as medical records given that the patient has progressive dementia. The patient was recently hospitalized for urinary tract infection during which she was hospitalized for acute kidney injury and required intervenous fluids resolved acute kidney injury spent approximate 14 days in transitional care unit, was able to ambulate with dyspnea on exertion. Following discharge to develop persistent headache, which was not accompanied by any vomiting or any double vision or any focal paresthesia of extremities. She has developed significant short of breath and worsening pedal edema in spite of aggressive diuretic therapy of 40 mg Lasix twice a day, had abdominal pain and abdominal discomfort and came to the hospital further evaluation. I was called to evaluate for underlying headache. Currently, she mentions that she does not have any headaches, but she is severely cognitively impaired. According to family members she does complain of headaches intermittently. I asked the patient when she has headaches, she said "it's all over the head. It is diffuse pressure type, when it does occur", but no photophobia, no blurry visions, no conjunctival injection. Currently, her CT of head showed no acute intracranial abnormality and this finding is consistent with generalized atrophy and some mild normal pressure hydrocephalus. Currently, Cardiology is being followed regards to underlying atrial fibrillation and shortness of breath. She has some mild pleural effusion for which Pulmonary is on board and appreciated their input. Currently, she is moving all extremities without any difficulties. No pronator seen. PAST MEDICAL HISTORY: History of severe COPD, chronic smoker, hypertension, history of myocardial infarction, history of cardiac arrest with AICD placement, history of mild renal insufficiency, and atrial fibrillation. SOCIAL HISTORY: He was a heavy smoker, chronic in nature. No illicit drug use or ETOH abuse. FAMILY HISTORY: Noncontributory. ALLERGIES: TO SULFONAMIDES. REVIEW OF SYSTEMS: A 14-point review of system was difficult to obtain due to the patient's underlying demented status. The patient does not compliant of many headaches at this time. PHYSICAL EXAMINATION: VITAL SIGNS: Temperature 97.4, pulse rate of 76, blood pressure 120/77, respiratory rate of 20, and oxygen saturation 97% by room air. GENERAL: The patient sitting up in bed, in no acute distress. HEENT: Head is atraumatic, normocephalic. PERRLA. Extraocular muscles intact. NECK: Supple. No JVD. No adenopathy noted. LUNGS: Decreased breath sounds bilaterally. HEART: Regular rate, and rhythm. No murmur, rubs, or gallops. ABDOMEN: Soft, nontender, nondistended. Bowel sounds present. EXTREMITIES: Mild bilateral pedal edema Peripheral pulses 2+ felt bilaterally. NEUROLOGIC: The patient is alert and oriented to person, place, month, and year. Recall after 5 minutes is 0/3. Poor attention span, slow thought process. She lacks insight and judgment. Speech is hypophonic, but no aphasia noted. Cranial nerves II through XII are intact. Motor exam: Slightly increased tone throughout. Moves all extremities equally. Toes are downgoing bilaterally. Sensory exam: Light touch, pinprick. Slightly decreased at the calves bilaterally and decreased vibration of the toes. DTRs are 2+ throughout and 1 at the ankles. Coordination [id number] intact. Gait is deferred for now. LABORATORY DATA: Today's blood sugar is 162. CAT scan shows generalized atrophy with mild evidence of normal-pressured hydrocephalus. ASSESSMENT AND PLAN: This is an 87-year-old woman, who is a former smoker with history of severe chronic obstructive pulmonary disease, hypertension, dyslipidemia, history of cardiac arrest, history of myocardial infarction with automatic implantable cardioverter-defibrillator placement, who presented to the hospital shortness of breath, worsening with abdominal pain, and persistent headache. She is recently hospitalized previously for urinary tract infection and sepsis, which was treated IV fluids and was spent 14 days in transitional care unit. She has a history of chronic CO2 retention and I was consulted to evaluate for headaches. 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 At this time, there will be no benefit upon her any medications like Topamax for chronic reduction headaches due to she is only cognitively slowed at the baseline. She does have evidence of severe dementia. At this point, I would recommend that her chronic paroxysmal hemicrania with Tension component is the likely the issue ongoing with her headaches. NPH does play a mild role. Plan: 1. Indomethacin 75 mg p.o. at the acute onset of headache and coenzyme Q10 such as 400 mg p.o. daily for headache prevention as well. 2. At this time, we would recommend continue with her management for underlying severe chronic obstructive pulmonary disease diurese her with Lasix and monitor her electrolytes and correct accordingly. Continue with keep her blood sugars between 140-180 and continue current present medical management at this time. Thank you for this consult. Justo Lofton MD MTDTrini
[2017-05-14] MEDS: TAFLUPROST EACHEYE SCH (21:38)
[2017-05-15 07:26] LABS: ALB/GLOB RATIO 1.1 (1.0-2.1); ALKALINE PHOSPHATASE 90 U/L (38-126); ALT/SGPT 20 U/L (9-52); AST/SGOT 23 U/L (14-36); BILIRUBIN,TOTAL 0.5 mg/dl (0.2-1.3); BLOOD UREA NITROGEN 28 mg/dl (7-17); CALCIUM 9.1 mg/dL (8.4-10.2); CARBON DIOXIDE 33 mmol/L (22-30); CHLORIDE 104 mmol/L (98-107); GFR AFRICAN-AMERICAN > 60; GLUCOSE,RANDOM 144 mg/dL (65-105); POTASSIUM 4.6 MMOL/L (3.6-5.0); SODIUM 146 mmol/l (132-148); TOTAL PROTEIN 6.6 G/DL (6.3-8.2)
--- NOTE | 2017-05-15 09:17 | RAD ---
PROCEDURE: CHEST RADIOGRAPH, 1 VIEW HISTORY: pleural effusion COMPARISON: Comparison chest 05/12/2017 FINDINGS: LUNGS: Improved pulmonary vascular congestive changes and the diminished patchy infiltrate right lower lobe. There also appears to be mild left lower lobe residual atelectasis and or infiltrate. Probable small residual bilateral effusions. PLEURA: As above. No evidence of pneumothorax. CARDIOVASCULAR: Cardiomegaly. Re- demonstrated is left-sided multi lead pacemaker/defibrillator. . Disconnected right-sided on pacemaker wires unchanged OSSEOUS STRUCTURES: No significant abnormalities. VISUALIZED UPPER ABDOMEN: Normal. OTHER FINDINGS: None. IMPRESSION: Improved vascular congestive changes were and diminished patchy infiltrate right lower lobe. There also appears to be some mild left basilar atelectasis and or residual infiltrate. Small bilateral effusions.
--- NOTE | 2017-05-15 09:55 | RAD ---
PROCEDURE: CHEST RADIOGRAPH, 1 VIEW HISTORY: pleural effusion COMPARISON: Comparison made with chest radiograph 05/14/2017 FINDINGS: LUNGS: Slight increased central pulmonary vascularity ; rule out mild chronic compensated pulmonary edema/ CHF. Questionable small bilateral effusions PLEURA: As above. No evidence of pneumothorax. CARDIOVASCULAR: Heart appears enlarged. Sternotomy wires and multi lead pacemaker/AICD unchanged. Disconnected right-sided pacemaker wire is unchanged as well. OSSEOUS STRUCTURES: No significant abnormalities. VISUALIZED UPPER ABDOMEN: Normal. OTHER FINDINGS: None. IMPRESSION: Cardiomegaly. Mild increase in vascularity; rule out sequela of chronic compensated pulmonary edema/CHF
[2017-05-15] MEDS: Multivitamin With Minerals Tab PO SCH (09:59)
[2017-05-15] MEDS: Pantoprazole 40 mg EC Tab PO SCH (09:59)
[2017-05-15] MEDS: Patient's Own Med (Dorzolamide 2%/Timolol 0.5% [Cosopt 2%-0.5% Opht] 1 DROP) EACHEYE SCH ×2 (09:59→16:43)
[2017-05-15] MEDS: Patient's Own Med (Cyclosporine [Restasis] 1 DROP) BOTHEYES SCH ×2 (09:59→16:43)
--- NOTE | 2017-05-15 11:50 | CP.PCM.PN ---
Subjective - Date & Time of Evaluation Date of Evaluation: 05/15/17 Time of Evaluation: 11:00 - Subjective Subjective: Had 700 Ml of Rt Pleural fluid drained yesterday. Denies any dyspnoea during night BP 124.74 mm Hg JVP flat, no rales F/U Chest x-ray today : no pneumothorax Have restrted Jeanineajithtejas Objective - Vital Signs/Intake and Output Vital Signs (last 24 hours): Temp Pulse Resp BP Pulse Ox 97.6 F 75 20 133/69 95 05/15/17 08:00 05/15/17 09:57 05/15/17 08:00 05/15/17 09:59 05/15/17 08:00 - Medications Medications: Current Medications Acetaminophen (Tylenol 325mg Tab) 650 mg PO Q6 PRN PRN Reason: Headache Last Admin: 05/14/17 12:14 Dose: 650 mg Allopurinol (Zyloprim) 100 mg PO DAILY [facility] Last Admin: 05/15/17 10:00 Dose: 100 mg Alprazolam (Xanax) 0.25 mg PO BID PRN PRN Reason: Anxiety Stop: 05/19/17 18:04 Last Admin: 05/15/17 02:11 Dose: 0.25 mg Apixaban (Eliquis) 2.5 mg PO BID [facility] PRN Reason: Protocol Carvedilol (Coreg) 3.125 mg PO BID [facility] Last Admin: 05/15/17 09:57 Dose: 3.125 mg Ferrous Sulfate (Feosol) 325 mg PO BID [facility] Last Admin: 05/15/17 09:57 Dose: 325 mg Furosemide (Lasix) 40 mg PO DAILY [facility] Last Admin: 05/15/17 09:59 Dose: 40 mg Home Med (Cyclosporine [Restasis]) 1 drop BOTHEYES BID [facility] Last Admin: 05/15/17 09:59 Dose: 1 drop Home Med (Dorzolamide 2%/Timolol 0.5% [Cosopt 2%-0.5% Opht]) 1 drop EACHEYE BID [facility] Last Admin: 05/15/17 09:59 Dose: 1 drop Home Med (Tafluprost/Pf [Zioptan 0.0015% Eye Drops]) 1 drop EACHEYE HS [facility] Last Admin: 05/14/17 21:38 Dose: 1 drop Indomethacin (Indocin) 75 mg PO PRN PRN PRN Reason: Headache Multivitamins/Minerals (Therapeutic-M Tab) 1 tab PO DAILY [facility] Last Admin: 05/15/17 09:59 Dose: 1 tab Pantoprazole Sodium (Protonix Ec Tab) 40 mg PO DAILY [facility] Last Admin: 05/15/17 09:59 Dose: 40 mg Sitagliptin Phosphate (Januvia) 50 mg PO DAILY [facility] Last Admin: 05/15/17 09:59 Dose: 50 mg - Labs Labs: 05/15/17 05:00 PT 15.4 Seconds (9.8-13.1) H 05/14/17 10:51 INR 1.5 (0.9-1.2) H 05/14/17 10:51
--- NOTE | 2017-05-15 12:40 | CP.PCM.PN ---
Subjective - Date & Time of Evaluation Date of Evaluation: 05/15/17 Time of Evaluation: 12:36 - Subjective Subjective: Thoracentesis done yesterday with removal of 700cc's shailesh colored fluid. Breathing relatively comfortably at this time. No lab results yet from fluid analysis. Vital signs have been stable. Breath sounds are diminished but present bilaterally. Trace ankle edema w/o cyanosis. SpO2 95% on nasal canula at 1LPM. Pallor noted; will ask for stat H&H. Objective - Vital Signs/Intake and Output Vital Signs (last 24 hours): Temp Pulse Resp BP Pulse Ox 97.6 F 75 20 133/69 95 05/15/17 08:00 05/15/17 09:57 05/15/17 08:00 05/15/17 09:59 05/15/17 08:00 - Medications Medications: Current Medications Acetaminophen (Tylenol 325mg Tab) 650 mg PO Q6 PRN PRN Reason: Headache Last Admin: 05/14/17 12:14 Dose: 650 mg Allopurinol (Zyloprim) 100 mg PO DAILY [facility] Last Admin: 05/15/17 10:00 Dose: 100 mg Alprazolam (Xanax) 0.25 mg PO BID PRN PRN Reason: Anxiety Stop: 05/19/17 18:04 Last Admin: 05/15/17 02:11 Dose: 0.25 mg Apixaban (Eliquis) 2.5 mg PO BID [facility] PRN Reason: Protocol Carvedilol (Coreg) 3.125 mg PO BID [facility] Last Admin: 05/15/17 09:57 Dose: 3.125 mg Ferrous Sulfate (Feosol) 325 mg PO BID [facility] Last Admin: 05/15/17 09:57 Dose: 325 mg Furosemide (Lasix) 40 mg PO DAILY [facility] Last Admin: 05/15/17 09:59 Dose: 40 mg Home Med (Cyclosporine [Restasis]) 1 drop BOTHEYES BID [facility] Last Admin: 05/15/17 09:59 Dose: 1 drop Home Med (Dorzolamide 2%/Timolol 0.5% [Cosopt 2%-0.5% Opht]) 1 drop EACHEYE BID [facility] Last Admin: 05/15/17 09:59 Dose: 1 drop Home Med (Tafluprost/Pf [Zioptan 0.0015% Eye Drops]) 1 drop EACHEYE HS [facility] Last Admin: 05/14/17 21:38 Dose: 1 drop Indomethacin (Indocin) 75 mg PO PRN PRN PRN Reason: Headache Multivitamins/Minerals (Therapeutic-M Tab) 1 tab PO DAILY [facility] Last Admin: 05/15/17 09:59 Dose: 1 tab Pantoprazole Sodium (Protonix Ec Tab) 40 mg PO DAILY [facility] Last Admin: 05/15/17 09:59 Dose: 40 mg Sitagliptin Phosphate (Januvia) 50 mg PO DAILY [facility] Last Admin: 05/15/17 09:59 Dose: 50 mg - Labs Labs: 05/15/17 05:00 PT 15.4 Seconds (9.8-13.1) H 05/14/17 10:51 INR 1.5 (0.9-1.2) H 05/14/17 10:51 Assessment and Plan (1) Pleural effusion Status: Acute (2) Anemia Status: Chronic (3) COPD (chronic obstructive pulmonary disease) Status: Chronic (4) Pulmonary hypertension Status: Chronic
[2017-05-15 13:02] LABS: HEMATOCRIT 32.1 % (34.0-47.0); MEAN CELL VOLUME 102.7 fl (81.0-99.0); MEAN CORPUSCULAR HEMOGLOBIN 31.9 pg (27.0-31.0); RED CELL DISTRIBUTION WIDTH 17.6 % (11.5-14.5); WHITE BLOOD COUNT 7.8 K/uL (4.8-10.8)
[2017-05-15 16:00] VITALS: RESP 20
[2017-05-15] MEDS: TAFLUPROST EACHEYE SCH (22:21)
[2017-05-16] MEDS: Multivitamin With Minerals Tab PO SCH (08:25)
[2017-05-16] MEDS: Patient's Own Med (Cyclosporine [Restasis] 1 DROP) BOTHEYES SCH ×2 (08:26→16:42)
[2017-05-16] MEDS: Pantoprazole 40 mg EC Tab PO SCH (08:26)
--- NOTE | 2017-05-16 10:01 | CP.PCM.PN ---
Subjective - Date & Time of Evaluation Date of Evaluation: 05/16/17 Time of Evaluation: 09:59 - Subjective Subjective: Has remained comfortable and well oxygenated. Still has episodes of general anxiety. Will place on room air and monitor SpO2. Place back on nasal oxygen if SpO2 <88%. Objective - Vital Signs/Intake and Output Vital Signs (last 24 hours): Temp Pulse Resp BP Pulse Ox 97.5 F L 75 20 129/69 96 05/16/17 08:00 05/16/17 08:25 05/16/17 08:00 05/16/17 08:25 05/16/17 08:00 - Medications Medications: Current Medications Acetaminophen (Tylenol 325mg Tab) 650 mg PO Q6 PRN PRN Reason: Headache Last Admin: 05/16/17 08:33 Dose: 650 mg Allopurinol (Zyloprim) 100 mg PO DAILY [facility] Last Admin: 05/16/17 08:25 Dose: 100 mg Alprazolam (Xanax) 0.25 mg PO BID PRN PRN Reason: Anxiety Stop: 05/19/17 18:04 Last Admin: 05/15/17 20:41 Dose: 0.25 mg Apixaban (Eliquis) 2.5 mg PO BID [facility] PRN Reason: Protocol Last Admin: 05/16/17 08:26 Dose: 2.5 mg Carvedilol (Coreg) 3.125 mg PO BID [facility] Last Admin: 05/16/17 08:25 Dose: 3.125 mg Ferrous Sulfate (Feosol) 325 mg PO BID [facility] Last Admin: 05/16/17 08:25 Dose: 325 mg Furosemide (Lasix) 40 mg PO DAILY [facility] Last Admin: 05/16/17 08:25 Dose: 40 mg Home Med (Cyclosporine [Restasis]) 1 drop BOTHEYES BID [facility] Last Admin: 05/16/17 08:26 Dose: 1 drop Home Med (Dorzolamide 2%/Timolol 0.5% [Cosopt 2%-0.5% Opht]) 1 drop EACHEYE BID [facility] Last Admin: 05/15/17 16:43 Dose: 1 drop Home Med (Tafluprost/Pf [Zioptan 0.0015% Eye Drops]) 1 drop EACHEYE HS [facility] Last Admin: 05/15/17 22:21 Dose: 1 drop Indomethacin (Indocin) 75 mg PO PRN PRN PRN Reason: Headache Multivitamins/Minerals (Therapeutic-M Tab) 1 tab PO DAILY [facility] Last Admin: 05/16/17 08:25 Dose: 1 tab Pantoprazole Sodium (Protonix Ec Tab) 40 mg PO DAILY [facility] Last Admin: 05/16/17 08:26 Dose: 40 mg Sitagliptin Phosphate (Januvia) 50 mg PO DAILY [facility] Last Admin: 05/15/17 09:59 Dose: 50 mg - Labs Labs: 05/15/17 12:58 05/15/17 05:00 PT 15.4 Seconds (9.8-13.1) H 05/14/17 10:51 INR 1.5 (0.9-1.2) H 05/14/17 10:51 Assessment and Plan (1) Pleural effusion Status: Acute (2) Anemia Status: Chronic (3) COPD (chronic obstructive pulmonary disease) Status: Chronic (4) Pulmonary hypertension Status: Chronic
--- NOTE | 2017-05-16 10:57 | CP.PCM.PN ---
Subjective - Date & Time of Evaluation Date of Evaluation: 05/16/17 Time of Evaluation: 08:00 - Subjective Subjective: Sitting OOB, C/O head aches A Fib with VVI paced rhythm BP 124/70 mm Hg No pedal oedema, JVP flat Good air entry at Rt base Back on Eliquis Will send pt to TCU before sending home. Objective - Vital Signs/Intake and Output Vital Signs (last 24 hours): Temp Pulse Resp BP Pulse Ox 97.5 F L 75 20 129/69 96 05/16/17 08:00 05/16/17 08:25 05/16/17 08:00 05/16/17 08:25 05/16/17 08:00 - Medications Medications: Current Medications Acetaminophen (Tylenol 325mg Tab) 650 mg PO Q6 PRN PRN Reason: Headache Last Admin: 05/16/17 08:33 Dose: 650 mg Allopurinol (Zyloprim) 100 mg PO DAILY [facility] Last Admin: 05/16/17 08:25 Dose: 100 mg Alprazolam (Xanax) 0.25 mg PO BID PRN PRN Reason: Anxiety Stop: 05/19/17 18:04 Last Admin: 05/15/17 20:41 Dose: 0.25 mg Apixaban (Eliquis) 2.5 mg PO BID [facility] PRN Reason: Protocol Last Admin: 05/16/17 08:26 Dose: 2.5 mg Carvedilol (Coreg) 3.125 mg PO BID [facility] Last Admin: 05/16/17 08:25 Dose: 3.125 mg Ferrous Sulfate (Feosol) 325 mg PO BID [facility] Last Admin: 05/16/17 08:25 Dose: 325 mg Furosemide (Lasix) 40 mg PO DAILY [facility] Last Admin: 05/16/17 08:25 Dose: 40 mg Home Med (Cyclosporine [Restasis]) 1 drop BOTHEYES BID [facility] Last Admin: 05/16/17 08:26 Dose: 1 drop Home Med (Dorzolamide 2%/Timolol 0.5% [Cosopt 2%-0.5% Opht]) 1 drop EACHEYE BID [facility] Last Admin: 05/15/17 16:43 Dose: 1 drop Home Med (Tafluprost/Pf [Zioptan 0.0015% Eye Drops]) 1 drop EACHEYE HS [facility] Last Admin: 05/15/17 22:21 Dose: 1 drop Indomethacin (Indocin) 75 mg PO PRN PRN PRN Reason: Headache Multivitamins/Minerals (Therapeutic-M Tab) 1 tab PO DAILY [facility] Last Admin: 05/16/17 08:25 Dose: 1 tab Pantoprazole Sodium (Protonix Ec Tab) 40 mg PO DAILY [facility] Last Admin: 05/16/17 08:26 Dose: 40 mg Sitagliptin Phosphate (Januvia) 50 mg PO DAILY [facility] Last Admin: 05/15/17 09:59 Dose: 50 mg - Labs Labs: 05/15/17 12:58 05/15/17 05:00 PT 15.4 Seconds (9.8-13.1) H 05/14/17 10:51 INR 1.5 (0.9-1.2) H 05/14/17 10:51
--- NOTE | 2017-05-16 11:31 | IP.NPCORE ---
Heart Failure Core Measure - Heart Failure Ejection Fraction: Less Than 40 % Left Ventricular Function to be assessed after discharge: Yes TOAN Inhibitor Prescribed: No Contraindication/Reason for not providing: N/A Beta-Homar Prescribed: Carvedilol Angiotensin II Receptor Homar Prescribed: No Contraindication/Reason for not providing: N/A AnticoagulationTherapy for Atrial Fibrillation/Atrialflutter: Yes Aldosterone Antagonist Prescribed: No Contraindication/Reason for not providing: On loop diuretic Hydralazine Nitrate Prescribed: No Contraindication/Reason for not providing: N/A Implantable Cardioverter Defibrillator Therapy: No Contraindication/Reason for not providing: N/A Cardiac Resynchronization Therapy Prescribed: No Contraindication/Reason for not providing: N/A - Follow up Will be discharged to: [facility] Follow Up Date (must be within 7 days from discharge): 05/19/17 Follow Up Time: 09:00
--- NOTE | 2017-05-16 11:48 | CT ---
PROCEDURE: Date of procedure: 05/12/2017 Procedure: 1. Ultrasound-guided Right thoracentesis, CPT 13672 Medications: 6cc 1% Lidocaine HISTORY: Right pleural effusion, shortness of breath TECHNIQUE: Following informed consent ,the Patients' right chest was marked. Procedure time-out was called, and the patient was placed in the sitting position and limited ultrasound showed a large right effusion. The patient's right back was prepped and draped in the usual sterile fashion. After the skin was anesthetized with lidocaine, a drainage catheter was advanced under ultrasound guidance into the pleural space. Ultrasound-guided thoracentesis was performed. A total of 750 cubic centimeters of straw-colored fluid removed without complication. A Xeroform dressing was applied. IMPRESSION: Ultrasound guided Right thoracentesis. There were no immediate complications.
[2017-05-16 12:52] VITALS: TEMP 97.7
[2017-05-16 15:45] VITALS: BP 119/73; PULSE 77; O2SAT 96
[2017-05-16] MEDS: Patient's Own Med (Dorzolamide 2%/Timolol 0.5% [Cosopt 2%-0.5% Opht] 1 DROP) EACHEYE SCH ×2 (16:36→16:42)
[2017-05-16] MEDS ORDERED: Saccharomyces Boulardi 250 mg Cap PO SCH (17:00)
[2017-05-16] MEDS ORDERED: Fluconazole IV 100mg/50 ml NS 50 ML IVPB SCH (17:00)
--- NOTE | 2017-05-17 13:05 | CP.PCM.DIS ---
Provider - Provider Date of Admission: 05/14/17 08:32 Attending physician: Bogdan Wade MD Time Spent in preparation of Discharge (in minutes): 30 Hospital Course - Lab Results Lab Results: Micro Results 05/14/17 14:00 Pleural Fluid Gram Stain - Final 05/14/17 14:00 Pleural Fluid Body Fluid Culture - Preliminary NO GROWTH AFTER 2 DAYS Most Recent Lab Values WBC 7.8 K/uL (4.8-10.8) 05/15/17 12:58 RBC 3.12 Mil/uL (3.80-5.20) L 05/15/17 12:58 Hgb 10.0 g/dL (12.0-16.0) L 05/15/17 12:58 Hct 32.1 % (34.0-47.0) L 05/15/17 12:58 MCV 102.7 fl (81.0-99.0) H 05/15/17 12:58 MCH 31.9 pg (27.0-31.0) H 05/15/17 12:58 MCHC 31.0 g/dL (33.0-37.0) L 05/15/17 12:58 RDW 17.6 % (11.5-14.5) H 05/15/17 12:58 Plt Count 170 K/uL (130-400) 05/15/17 12:58 MPV 10.2 fl (7.2-11.7) 05/12/17 13:50 Neut % (Auto) 86.8 % (50.0-75.0) H 05/12/17 13:50 Lymph % (Auto) 4.8 % (20.0-40.0) L 05/12/17 13:50 [place] % (Auto) 6.7 % (0.0-10.0) 05/12/17 13:50 Eos % (Auto) 1.2 % (0.0-4.0) 05/12/17 13:50 Baso % (Auto) 0.5 % (0.0-2.0) 05/12/17 13:50 Neut # 7.5 K/uL (1.8-7.0) H 05/12/17 13:50 Lymph # 0.4 K/uL (1.0-4.3) L 05/12/17 13:50 [place] # 0.6 K/uL (0.0-0.8) 05/12/17 13:50 Eos # 0.1 K/uL (0.0-0.7) 05/12/17 13:50 Baso # 0.0 K/uL (0.0-0.2) 05/12/17 13:50 Neutrophils % (Manual) 88 % (42-75) H 05/12/17 13:50 Lymphocytes % (Manual) 8 % (20-50) L 05/12/17 13:50 Monocytes % (Manual) 3 % (0-10) 05/12/17 13:50 Basophils % (Manual) 1 % (0-2) 05/12/17 13:50 Platelet Estimate Normal (NORMAL) 05/12/17 13:50 Large Platelets Present 05/12/17 13:50 Anisocytosis (manual) Slight 05/12/17 13:50 Macrocytosis (manual) Slight 05/12/17 13:50 Ovalocytes Slight 05/12/17 13:50 PT 15.4 Seconds (9.8-13.1) H 05/14/17 10:51 INR 1.5 (0.9-1.2) H 05/14/17 10:51 pCO2 54 mm/Hg (35-45) H 05/13/17 09:44 pO2 133 mm/Hg (80-100) H 05/13/17 09:44 HCO3 32.1 mmol/L (21-28) H 05/13/17 09:44 ABG pH 7.42 (7.35-7.45) 05/13/17 09:44 ABG Total CO2 36.7 mmol/L (22-28) H 05/13/17 09:44 ABG O2 Saturation 97.9 % (95-98) 05/13/17 09:44 ABG O2 Content 13.3 ML/dL (15-23) L 05/13/17 09:44 ABG Base Excess 9.2 mmol/L (-2.0-3.0) H 05/13/17 09:44 ABG Hemoglobin 9.6 g/dL (11.7-17.4) L 05/13/17 09:44 ABG Carboxyhemoglobin 0.8 % (0.5-1.5) 05/13/17 09:44 POC ABG HHb (Measured) 2.1 % (0.0-5.0) 05/13/17 09:44 ABG Methemoglobin 0.9 % (0.0-3.0) 05/13/17 09:44 ABG O2 Capacity 13.6 mL/dL (16-24) L 05/13/17 09:44 Quoc Test Yes 05/13/17 09:44 A-a O2 Difference -1.0 mm/Hg 05/13/17 09:44 Hgb O2 Saturation 96.2 % (95.0-98.0) 05/13/17 09:44 Liter Flow 2 05/13/17 09:44 Vent Mode Nc 05/13/17 09:44 FiO2 28.0 % 05/13/17 09:44 Sodium 146 mmol/l (132-148) 05/15/17 05:00 Potassium 4.6 MMOL/L (3.6-5.0) 05/15/17 05:00 Chloride 104 mmol/L (98-107) 05/15/17 05:00 Carbon Dioxide 33 mmol/L (22-30) H 05/15/17 05:00 Anion Gap 14 (10-20) 05/15/17 05:00 BUN 28 mg/dl (7-17) H 05/15/17 05:00 Creatinine 0.9 mg/dL (0.7-1.2) 05/15/17 05:00 Est GFR ( Amer) > 60 05/15/17 05:00 Est GFR (Non-Af Amer) 59 05/15/17 05:00 POC Glucose (mg/dL) 211 mg/dL (65-110) H 05/16/17 15:57 Random Glucose 144 mg/dL (65-105) H 05/15/17 05:00 Calcium 9.1 mg/dL (8.4-10.2) 05/15/17 05:00 Iron 38 ug/dL (37-170) 05/16/17 05:30 Total Bilirubin 0.5 mg/dl (0.2-1.3) 05/15/17 05:00 AST 23 U/L (14-36) 05/15/17 05:00 ALT 20 U/L (9-52) 05/15/17 05:00 Alkaline Phosphatase 90 U/L (38-126) 05/15/17 05:00 Total Protein 6.6 G/DL (6.3-8.2) 05/15/17 05:00 Albumin 3.4 g/dL (3.5-5.0) L 05/15/17 05:00 Globulin 3.2 gm/dL (2.2-3.9) 05/15/17 05:00 Albumin/Globulin Ratio 1.1 (1.0-2.1) 05/15/17 05:00 Urine Color Yellow (YELLOW) 05/12/17 18:25 Urine Clarity Cloudy (Clear) 05/12/17 18:25 Urine pH 5.0 (5.0-8.0) 05/12/17 18:25 Ur Specific [place] 1.011 (1.003-1.030) 05/12/17 18:25 Urine Protein Negative mg/dL (NEGATIVE) 05/12/17 18:25 Urine Glucose (UA) Neg mg/dL (Normal) 05/12/17 18:25 Urine Ketones Negative mg/dL (NEGATIVE) 05/12/17 18:25 Urine Blood Moderate (NEGATIVE) 05/12/17 18:25 Urine Nitrate Negative (NEGATIVE) 05/12/17 18:25 Urine Bilirubin Negative (NEGATIVE) 05/12/17 18:25 Urine Urobilinogen 0.2-1.0 mg/dL (0.2-1.0) 05/12/17 18:25 Ur Leukocyte Esterase Trace [place]/uL (Negative) 05/12/17 18:25 Urine RBC (Auto) 35 /hpf (0-3) H 05/12/17 18:25 Urine Microscopic WBC 3 /hpf (0-5) 05/12/17 18:25 Ur Squamous Epith Cells 2 /hpf (0-5) 05/12/17 18:25 Urine Bacteria Occ (<OCC) H 05/12/17 18:25 Hyaline Casts 6-10 /hpf (0-2) H 05/12/17 18:25 - Hospital Course Hospital Course: this 87-year-old female with severe congestive cardiac failure 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 She has a long medical history that includes prior myocardial infarction coronary revascularization as well as insertion of a AICD. The patient has had significant dementia and has been complaining of recurring headaches as well. The patient had been on an oral anticoagulated because of chronic atrial fibrillation which was held. The patient subsequently underwent went a successful right pleural tap removing 700 mL of pleural effusion without any incident. The patient tolerated the procedure well. She had significant relief of her dyspnea. Her vital signs remained stable. An echocardiogram done during this hospitalization showed severe left ventricular wall motion abnormalities with markedly depressed systolic function and an ejection fraction estimated at 10% with severe mitral regurgitation. Her labs remained stable. The patient was transferred to transitional care unit in preparation for eventual discharge. Her final diagnosis was right pleural effusion secondary to severe congestive cardiac failure which was left ventricular chronic and systolic with severe mitral regurgitation. Status post AICD implant. Severe COPD. Recurring headaches. Dementia.. Discharge Exam - Head Exam Head Exam: ATRAUMATIC, NORMAL INSPECTION, NORMOCEPHALIC Discharge Plan - Follow Up Plan Condition: FAIR Disposition: TRANSF TO SNF Instructions: Pleural Effusion (DC)
== END 2017-05-16 19:20 | DRG 292 ==
LOC: H.ER 13:37 → H.ERHOLD 15:12 → H.TEL 21:47 → OBSVTOIN 05-14 08:32
PROVIDERS: ADMIT Internal Medicine Cardiovascular Disease; ATTEND Internal Medicine Cardiovascular Disease
PROC: 0W993ZZ Drainage of Right Pleural Cavity, Percutaneous Approach (ICD-10-PCS; principal; 2017-05-14)
DX: I11.0 Hypertensive heart disease with heart failure (principal); J91.8 Pleural effusion in other conditions classified elsewhere; F03.90 Unspecified dementia, unspecified severity, without behavioral disturbance, psychotic disturbance, mood disturbance, and anxiety; I42.9 Cardiomyopathy, unspecified; I48.2 Chronic atrial fibrillation; I27.2 Other secondary pulmonary hypertension; Z86.74 Personal history of sudden cardiac arrest; E11.9 Type 2 diabetes mellitus without complications; D64.9 Anemia, unspecified; G44.049 Chronic paroxysmal hemicrania, not intractable; I25.2 Old myocardial infarction; I25.10 Atherosclerotic heart disease of native coronary artery without angina pectoris; Z88.2 Allergy status to sulfonamides; E78.00 Pure hypercholesterolemia, unspecified; I50.22 Chronic systolic (congestive) heart failure; Z95.810 Presence of automatic (implantable) cardiac defibrillator; Z95.1 Presence of aortocoronary bypass graft; J44.9 Chronic obstructive pulmonary disease, unspecified; I08.1 Rheumatic disorders of both mitral and tricuspid valves; K29.70 Gastritis, unspecified, without bleeding; E78.5 Hyperlipidemia, unspecified; Z87.891 Personal history of nicotine dependence; Z79.01 Long term (current) use of anticoagulants

== ENCOUNTER 2017-05-16 16:57 | Inpatient (IN) | payer OTHER ==
[2017-05-16 20:28] VITALS: BMI 24.8
[2017-05-16] MEDS: TAFLUPROST EACHEYE SCH (23:30)
[2017-05-17] MEDS ORDERED: FUROSEMIDE 40 MG PO SCH (09:00)
[2017-05-17] MEDS: Patient's Own Med (Dorzolamide 2%/Timolol 0.5% [Cosopt 2%-0.5% Opht] 1 DROP) EACHEYE SCH ×2 (09:30→16:09)
[2017-05-17] MEDS: Multivitamin With Minerals Tab PO SCH (09:31)
[2017-05-17] MEDS: Saccharomyces Boulardi 250 mg Cap PO SCH ×2 (09:31→16:08)
[2017-05-17] MEDS: Patient's Own Med (Cyclosporine [Restasis] 1 DROP) BOTHEYES SCH ×2 (09:31→16:09)
[2017-05-17] MEDS: Pantoprazole 40 mg EC Tab PO SCH (09:32)
--- NOTE | 2017-05-17 13:25 | CP.PCM.HP ---
History of Present Illness - History of Present Illness History of Present Illness: this 87-year-old female with stable coronary artery disease having suffered myocardial infarctions in the past who has severe congestive cardiac failure which is left ventricular systolic and chronic as well as COPD is admitted in the transitional care unit following an admission in acute care facility for a large right pleural effusion as a consequence of congestive heart failure, which was successfully drained. The patient is now in the transitional care unit before being sent home. The patient also has a history of severe COPD as well as chronic atrial fibrillation and an AICD implant. She has severe mitral regurgitation. The patient has significant cognitive deficit. Physical examination shows an elderly female sitting up comfortably in a chair and breathes at 16-18 breaths per minute and has a heart rate of 60 bpm and regular. Her blood pressure was 124/70 mmHg. Her jugular venous pressure was not elevated. There was no edema over lower extremities. Her extremities were warm and her nailbeds were pink. There was no central or peripheral cyanosis. On room air she had a pulse oximetry of 94% and with 1 L of oxygen supplement thru a nasal cannula she had a pulse oximetry of 99%.a scar of sternotomy was evident. An AICD was in the left infraclavicular area. The apex was in the 6 pain is heaving in character with a loud apical systolic murmur of mitral regurgitation. There were no rales. Her electric cardiogram showed atrial fibrillation with a VVI paced rhythm. Impression: congestive cardiac failure which is left ventricular chronic and systolic ( LVEF was approximately 10%) with severe mitral regurgitation. COPD. Chronic atrial fibrillation. Dementia. Macular degeneration. Plan: the patient will receive IV Diflucan as recommended by Dr. Dahl. She will have physical therapy so as to transition to home care. Present on Admission - Present on Admission Any Indicators Present on Admission: No Past Patient History - Infectious Disease Hx of Infectious Diseases: None - Tetanus Immunizations Tetanus Immunization: Unknown - Past Medical History & Family History Past Medical History?: Yes - Past Social History Smoking Status: Former Smoker - CARDIAC Hx Atrial Fibrillation: Yes Hx Congestive Heart Failure: Yes Hx Heart Attack: Yes Hx Hypercholesterolemia: Yes Hx Hypertension: Yes Hx Pacemaker: Yes Hx Peripheral Edema: Yes - PULMONARY Hx Chronic Obstructive Pulmonary Disease (COPD): Yes Hx Pulmonary Edema: Yes - NEUROLOGICAL Hx Dementia: Yes - HEENT Hx Cataracts: Yes Hx Macular Degeneration: Yes - RENAL Hx Chronic Kidney Disease: No - ENDOCRINE/METABOLIC Hx Diabetes Mellitus Type 2: Yes - HEMATOLOGICAL/ONCOLOGICAL Hx AIDS: No Hx Anemia: Yes Hx Blood Transfusions: Yes Hx Blood Transfusion Reaction: No Hx Human Immunodeficiency Virus (HIV): No - INTEGUMENTARY Hx Dermatological Problems: No - MUSCULOSKELETAL/RHEUMATOLOGICAL Hx Falls: No Hx Unsteady Gait: Yes - GASTROINTESTINAL Hx Gastritis: Yes Other/Comment: GI bleed - GENITOURINARY/GYNECOLOGICAL Hx Incontinence: Yes Other/Comment: Current incontinence - PSYCHIATRIC Hx Substance Use: No - SURGICAL HISTORY Hx Coronary Artery Bypass Graft: Yes Hx Hysterectomy: Yes Other/Comment: av node ablation. AICD implant. - ANESTHESIA Hx Anesthesia: Yes Hx Anesthesia Reactions: No Hx Malignant Hyperthermia: No Meds Allergies/Adverse Reactions: Allergies Allergy/AdvReac Type Severity Reaction Status Date / Time Sulfa (Sulfonamide Allergy ITCHING Verified 04/29/17 18:25 Antibiotics) preservatives Allergy Unknown SWELLING Uncoded 10/01/14 15:06 Results - Vital Signs Recent Vital Signs: Last Vital Signs Temp 97.0 F L 05/17/17 08:26 Pulse 76 05/17/17 09:32 Resp 20 05/17/17 08:26 BP 126/67 05/17/17 09:32 Pulse Ox 97 05/17/17 08:26 - Labs Labs: Laboratory Results - last 24 hr 05/16/17 05/17/17 05/17/17 22:45 06:44 11:09 POC Glucose (mg/dL) 269 H 175 H 186 H
--- NOTE | 2017-05-17 13:43 | CP.PCM.CON ---
History of Present Illness - History of Present Illness History of Present Illness: This 87 year old female, a former cigarette smoker with COPD, was re-admitted to acute medicine because of decompensation of her CHF with recurrent pleural effusion. She had thoracentesis and fluid management along with continued medical treatment and has done quite well. She does have chronic CO2 retention along with hypoxia so her supplemental O2 needs to remain at 1LPM except for periods of activity. Her chronic recurring headaches may be related to hypercpnea. Past Patient History - Infectious Disease Hx of Infectious Diseases: None - Tetanus Immunizations Tetanus Immunization: Unknown - Past Medical History & Family History Past Medical History?: Yes - Past Social History Smoking Status: Former Smoker - CARDIAC Hx Atrial Fibrillation: Yes Hx Congestive Heart Failure: Yes Hx Heart Attack: Yes Hx Hypercholesterolemia: Yes Hx Hypertension: Yes Hx Pacemaker: Yes Hx Peripheral Edema: Yes - PULMONARY Hx Chronic Obstructive Pulmonary Disease (COPD): Yes Hx Pulmonary Edema: Yes - NEUROLOGICAL Hx Dementia: Yes - HEENT Hx Cataracts: Yes Hx Macular Degeneration: Yes - RENAL Hx Chronic Kidney Disease: No - ENDOCRINE/METABOLIC Hx Diabetes Mellitus Type 2: Yes - HEMATOLOGICAL/ONCOLOGICAL Hx AIDS: No Hx Anemia: Yes Hx Blood Transfusions: Yes Hx Blood Transfusion Reaction: No Hx Human Immunodeficiency Virus (HIV): No - INTEGUMENTARY Hx Dermatological Problems: No - MUSCULOSKELETAL/RHEUMATOLOGICAL Hx Falls: No Hx Unsteady Gait: Yes - GASTROINTESTINAL Hx Gastritis: Yes Other/Comment: GI bleed - GENITOURINARY/GYNECOLOGICAL Hx Incontinence: Yes Other/Comment: Current incontinence - PSYCHIATRIC Hx Substance Use: No - SURGICAL HISTORY Hx Coronary Artery Bypass Graft: Yes Hx Hysterectomy: Yes Other/Comment: av node ablation. AICD implant. - ANESTHESIA Hx Anesthesia: Yes Hx Anesthesia Reactions: No Hx Malignant Hyperthermia: No Meds Allergies/Adverse Reactions: Allergies Allergy/AdvReac Type Severity Reaction Status Date / Time Sulfa (Sulfonamide Allergy ITCHING Verified 04/29/17 18:25 Antibiotics) preservatives Allergy Unknown SWELLING Uncoded 10/01/14 15:06 - Medications Medications: Current Medications Acetaminophen (Tylenol 325mg Tab) 325 mg PO Q6 PRN PRN Reason: Headache Allopurinol (Zyloprim) 100 mg PO DAILY [facility] Last Admin: 05/17/17 09:32 Dose: 100 mg Alprazolam (Xanax) 0.25 mg PO BID PRN PRN Reason: Anxiety Stop: 05/23/17 23:13 Apixaban (Eliquis) 2.5 mg PO BID [facility] PRN Reason: Protocol Last Admin: 05/17/17 09:31 Dose: 2.5 mg Carvedilol (Coreg) 3.125 mg PO BID [facility] Last Admin: 05/17/17 09:32 Dose: 3.125 mg Ferrous Sulfate (Feosol) 325 mg PO BID [facility] Last Admin: 05/17/17 09:23 Dose: 325 mg Furosemide (Lasix) 40 mg PO DAILY [facility] Last Admin: 05/17/17 09:23 Dose: 40 mg Home Med (Cyclosporine [Restasis]) 1 drop BOTHEYES BID [facility] Last Admin: 05/17/17 09:31 Dose: 1 drop Home Med (Dorzolamide 2%/Timolol 0.5% [Cosopt 2%-0.5% Opht]) 1 drop EACHEYE BID [facility] Last Admin: 05/17/17 09:30 Dose: 1 drop Home Med (Tafluprost/Pf [Zioptan 0.0015% Eye Drops]) 1 drop EACHEYE HS [facility] Last Admin: 05/16/17 23:30 Dose: Not Given Fluconazole (Diflucan Iv 100 Mg/50 Ml Ns) 50 mls @ 50 mls/hr IVPB DAILY@1700 [facility] Indomethacin (Indocin) 75 mg PO DAILY PRN PRN Reason: Headache Multivitamins/Minerals (Therapeutic-M Tab) 1 tab PO DAILY [facility] Last Admin: 05/17/17 09:31 Dose: 1 tab Pantoprazole Sodium (Protonix Ec Tab) 40 mg PO DAILY [facility] Last Admin: 05/17/17 09:32 Dose: 40 mg Saccharomyces Boulardii (Florastor) 250 mg PO BID [facility] Last Admin: 05/17/17 09:31 Dose: 250 mg Sitagliptin Phosphate (Januvia) 50 mg PO DAILY [facility] Last Admin: 05/17/17 09:36 Dose: 50 mg Physical Exam - Additional Findings Additional findings: Awake and alert, in no distress. No cyanosis, trace dependant edema, no calf tenderness. Pharynx is pink and moist. Conjunctivae pale, no scleral icterus. Neck is supple, trachea is midline. No palpable lymphadenopathy. No dullness on chest percussioon. Breath sounds are present bilaterally, diminished. No audible wheezes or bronchial breath sounds. Occasional sonorous rhonchi and rare dependant rales. Heart sounds are distant, rhythm is regular. Abdomen is soft with normal BS. Results - Vital Signs Recent Vital Signs: Last Vital Signs Temp 97.0 F L 05/17/17 08:26 Pulse 76 05/17/17 09:32 Resp 20 05/17/17 08:26 BP 126/67 05/17/17 09:32 Pulse Ox 97 05/17/17 08:26 - Labs Result Diagrams: 05/18/17 06:00 Labs: Laboratory Results - last 24 hr 05/16/17 05/17/17 05/17/17 22:45 06:44 11:09 POC Glucose (mg/dL) 269 H 175 H 186 H Assessment & Plan (1) Hypercapnia Status: Chronic Priority: High (2) Chronic respiratory insufficiency Status: Chronic Priority: High (3) COPD (chronic obstructive pulmonary disease) Status: Chronic Priority: High - Assessment and Plan (Free Text) Plan: Maintain supplemental oxygen at one LPM at rest. May use two LPM for activity. Continue all maintenance rx. - Date & Time Date: 05/17/17 Time: 13:43
[2017-05-17] MEDS: Fluconazole IV 100mg/50 ml NS 50 ML IVPB SCH (17:40)
[2017-05-17] MEDS: TAFLUPROST EACHEYE SCH (22:54)
[2017-05-18 08:03] LABS: BASO % 0.4 % (0.0-2.0); EOS # 0.1 K/uL (0.0-0.7); EOS % 2.5 % (0.0-4.0); HEMATOCRIT 30.2 % (34.0-47.0); LYMPH # 0.4 K/uL (1.0-4.3); LYMPH % 7.2 % (20.0-40.0); MEAN CELL VOLUME 102.5 fl (81.0-99.0); MEAN CORPUSCULAR HEMOGLOBIN 32.4 pg (27.0-31.0); MEAN CORPUSCULAR HGB CONC 31.6 g/dL (33.0-37.0); MEAN PLATELET VOLUME 9.7 fl (7.2-11.7); MONO # 0.5 K/uL (0.0-0.8); MONO % 9.4 % (0.0-10.0); NEUT # 4.3 K/uL (1.8-7.0); NEUT % 80.5 % (50.0-75.0); NRBC % 0.2 % (0.0-0.0); PLATELET COUNT 135 K/uL (130-400); RED CELL DISTRIBUTION WIDTH 18.1 % (11.5-14.5); WHITE BLOOD COUNT 5.3 K/uL (4.8-10.8)
[2017-05-18] MEDS: Saccharomyces Boulardi 250 mg Cap PO SCH ×2 (08:43→17:22)
[2017-05-18] MEDS: Multivitamin With Minerals Tab PO SCH (08:43)
[2017-05-18] MEDS: Pantoprazole 40 mg EC Tab PO SCH (08:44)
[2017-05-18] MEDS: Patient's Own Med (Cyclosporine [Restasis] 1 DROP) BOTHEYES SCH ×2 (08:44→17:22)
[2017-05-18] MEDS: Patient's Own Med (Dorzolamide 2%/Timolol 0.5% [Cosopt 2%-0.5% Opht] 1 DROP) EACHEYE SCH ×2 (08:55→17:27)
--- NOTE | 2017-05-18 11:13 | CP.PCM.PN ---
Subjective - Date & Time of Evaluation Date of Evaluation: 05/18/17 Time of Evaluation: 10:00 - Subjective Subjective: In bed, saying she had a restless night and wants to rest Vital signs stable Labs noted Will get RBC folate and B12 level (Pt has Macrocytosis) Objective - Vital Signs/Intake and Output Vital Signs (last 24 hours): Temp Pulse Resp BP Pulse Ox 97.5 F L 76 20 126/58 L 99 05/18/17 08:39 05/18/17 08:44 05/18/17 08:39 05/18/17 08:44 05/18/17 08:39 - Medications Medications: Current Medications Acetaminophen (Tylenol 325mg Tab) 325 mg PO Q6 PRN PRN Reason: Headache Last Admin: 05/17/17 18:42 Dose: 325 mg Allopurinol (Zyloprim) 100 mg PO DAILY [facility] Last Admin: 05/18/17 08:43 Dose: 100 mg Alprazolam (Xanax) 0.25 mg PO BID PRN PRN Reason: Anxiety Stop: 05/23/17 23:13 Apixaban (Eliquis) 2.5 mg PO BID [facility] PRN Reason: Protocol Last Admin: 05/18/17 08:44 Dose: 2.5 mg Carvedilol (Coreg) 3.125 mg PO BID [facility] Last Admin: 05/18/17 08:44 Dose: 3.125 mg Ferrous Sulfate (Feosol) 325 mg PO BID [facility] Last Admin: 05/18/17 08:43 Dose: 325 mg Furosemide (Lasix) 40 mg PO Q12 [facility] Last Admin: 05/18/17 08:43 Dose: 40 mg Home Med (Cyclosporine [Restasis]) 1 drop BOTHEYES BID [facility] Last Admin: 05/18/17 08:44 Dose: 1 drop Home Med (Dorzolamide 2%/Timolol 0.5% [Cosopt 2%-0.5% Opht]) 1 drop EACHEYE BID [facility] Last Admin: 05/18/17 08:55 Dose: 1 drop Home Med (Tafluprost/Pf [Zioptan 0.0015% Eye Drops]) 1 drop EACHEYE HS [facility] Last Admin: 05/17/17 22:54 Dose: 1 drop Fluconazole (Diflucan Iv 100 Mg/50 Ml Ns) 50 mls @ 50 mls/hr IVPB DAILY@1700 [facility] Last Admin: 05/17/17 17:40 Dose: 50 mls/hr Indomethacin (Indocin) 75 mg PO DAILY PRN PRN Reason: Headache Last Admin: 05/17/17 16:07 Dose: 75 mg Multivitamins/Minerals (Therapeutic-M Tab) 1 tab PO DAILY [facility] Last Admin: 05/18/17 08:43 Dose: 1 tab Pantoprazole Sodium (Protonix Ec Tab) 40 mg PO DAILY [facility] Last Admin: 05/18/17 08:44 Dose: 40 mg Saccharomyces Boulardii (Florastor) 250 mg PO BID [facility] Last Admin: 05/18/17 08:43 Dose: 250 mg Sitagliptin Phosphate (Januvia) 50 mg PO DAILY [facility] Last Admin: 05/18/17 08:43 Dose: 50 mg - Labs Labs: 05/18/17 06:00
[2017-05-18 12:54] LABS: EOSINOPHIL 1 % (0-7); NEUTROPHIL 87 % (42-75); TOTAL CELLS COUNTED 100
[2017-05-18 12:55] LABS: LARGE PLATELETS PRESENT
[2017-05-18] MEDS: Fluconazole IV 100mg/50 ml NS 50 ML IVPB SCH (17:22)
[2017-05-18] MEDS: TAFLUPROST EACHEYE SCH (21:35)
--- NOTE | 2017-05-19 08:48 | CP.PCM.PN ---
Subjective - Date & Time of Evaluation Date of Evaluation: 05/19/17 Time of Evaluation: 08:30 - Subjective Subjective: Resting comfortably, had a restful night Poor appetite, not inclined to eat HR 62 BPM BP 130/70 mm Hg JVP flat, no wheez or rales S B12 910 pg/ml RBC folate awaited Objective - Vital Signs/Intake and Output Vital Signs (last 24 hours): Temp Pulse Resp BP Pulse Ox 98.1 F 79 20 128/70 98 05/19/17 07:51 05/19/17 07:51 05/19/17 07:51 05/19/17 07:51 05/19/17 07:51 - Medications Medications: Current Medications Acetaminophen (Tylenol 325mg Tab) 325 mg PO Q6 PRN PRN Reason: Headache Last Admin: 05/17/17 18:42 Dose: 325 mg Allopurinol (Zyloprim) 100 mg PO DAILY [facility] Last Admin: 05/18/17 08:43 Dose: 100 mg Alprazolam (Xanax) 0.25 mg PO BID PRN PRN Reason: Anxiety Stop: 05/23/17 23:13 Apixaban (Eliquis) 2.5 mg PO BID [facility] PRN Reason: Protocol Last Admin: 05/18/17 17:22 Dose: 2.5 mg Carvedilol (Coreg) 3.125 mg PO BID [facility] Last Admin: 05/18/17 17:22 Dose: 3.125 mg Ferrous Sulfate (Feosol) 325 mg PO BID [facility] Last Admin: 05/18/17 17:22 Dose: 325 mg Furosemide (Lasix) 40 mg PO Q12 [facility] Last Admin: 05/18/17 20:42 Dose: 40 mg Home Med (Cyclosporine [Restasis]) 1 drop BOTHEYES BID [facility] Last Admin: 05/18/17 17:22 Dose: 1 drop Home Med (Dorzolamide 2%/Timolol 0.5% [Cosopt 2%-0.5% Opht]) 1 drop EACHEYE BID [facility] Last Admin: 05/18/17 17:27 Dose: 1 drop Home Med (Tafluprost/Pf [Zioptan 0.0015% Eye Drops]) 1 drop EACHEYE HS [facility] Last Admin: 05/18/17 21:35 Dose: Not Given Fluconazole (Diflucan Iv 100 Mg/50 Ml Ns) 50 mls @ 50 mls/hr IVPB DAILY@1700 [facility] Last Admin: 05/18/17 17:22 Dose: 50 mls/hr Indomethacin (Indocin) 75 mg PO DAILY PRN PRN Reason: Headache Last Admin: 05/17/17 16:07 Dose: 75 mg Multivitamins/Minerals (Therapeutic-M Tab) 1 tab PO DAILY [facility] Last Admin: 05/18/17 08:43 Dose: 1 tab Pantoprazole Sodium (Protonix Ec Tab) 40 mg PO DAILY [facility] Last Admin: 05/18/17 08:44 Dose: 40 mg Saccharomyces Boulardii (Florastor) 250 mg PO BID [facility] Last Admin: 05/18/17 17:22 Dose: 250 mg Sitagliptin Phosphate (Januvia) 50 mg PO DAILY [facility] Last Admin: 05/18/17 08:43 Dose: 50 mg - Labs Labs: 05/18/17 06:00
[2017-05-19] MEDS: Patient's Own Med (Cyclosporine [Restasis] 1 DROP) BOTHEYES SCH ×2 (09:12→16:49)
[2017-05-19] MEDS: Patient's Own Med (Dorzolamide 2%/Timolol 0.5% [Cosopt 2%-0.5% Opht] 1 DROP) EACHEYE SCH ×2 (09:12→16:49)
[2017-05-19] MEDS: Saccharomyces Boulardi 250 mg Cap PO SCH ×2 (09:12→17:06)
[2017-05-19] MEDS: Multivitamin With Minerals Tab PO SCH (09:13)
[2017-05-19] MEDS: Pantoprazole 40 mg EC Tab PO SCH (09:14)
[2017-05-19] MEDS: Fluconazole IV 100mg/50 ml NS 50 ML IVPB SCH (16:48)
[2017-05-19] MEDS: TAFLUPROST EACHEYE SCH (21:06)
[2017-05-20] MEDS: Patient's Own Med (Dorzolamide 2%/Timolol 0.5% [Cosopt 2%-0.5% Opht] 1 DROP) EACHEYE SCH ×2 (09:08→16:27)
[2017-05-20] MEDS: Patient's Own Med (Cyclosporine [Restasis] 1 DROP) BOTHEYES SCH ×2 (09:09→16:27)
[2017-05-20] MEDS: Saccharomyces Boulardi 250 mg Cap PO SCH ×2 (09:09→16:28)
[2017-05-20] MEDS: Pantoprazole 40 mg EC Tab PO SCH (09:09)
[2017-05-20] MEDS: Multivitamin With Minerals Tab PO SCH (09:09)
--- NOTE | 2017-05-20 09:33 | CP.PCM.PN ---
Subjective - Date & Time of Evaluation Date of Evaluation: 05/20/17 Time of Evaluation: 09:30 - Subjective Subjective: Seated in a bedside chair, comfortable and conversant. Trace dependant edema of both feet, no calf tenderness. No cyanosis, + ecchymosis left UE. No dullness to chest percussion. Breath sounds are diminished but present bilaterally. Few scattered rhonchi w/o wheezing or bronchial breathing. Heart sounds slightly distant, regular, + systolic murmur. Maintain current regimen. Objective - Vital Signs/Intake and Output Vital Signs (last 24 hours): Temp Pulse Resp BP Pulse Ox 97.7 F 75 20 119/66 100 05/20/17 08:35 05/20/17 09:09 05/20/17 08:35 05/20/17 09:10 05/20/17 08:35 - Medications Medications: Current Medications Acetaminophen (Tylenol 325mg Tab) 325 mg PO Q6 PRN PRN Reason: Headache Last Admin: 05/20/17 09:07 Dose: 325 mg Allopurinol (Zyloprim) 100 mg PO DAILY [facility] Last Admin: 05/20/17 09:10 Dose: 100 mg Alprazolam (Xanax) 0.25 mg PO BID PRN PRN Reason: Anxiety Stop: 05/23/17 23:13 Apixaban (Eliquis) 2.5 mg PO BID [facility] PRN Reason: Protocol Last Admin: 05/20/17 09:08 Dose: 2.5 mg Carvedilol (Coreg) 3.125 mg PO BID [facility] Last Admin: 05/20/17 09:09 Dose: 3.125 mg Ferrous Sulfate (Feosol) 325 mg PO BID [facility] Last Admin: 05/20/17 09:09 Dose: 325 mg Furosemide (Lasix) 40 mg PO Q12 [facility] Last Admin: 05/20/17 09:10 Dose: 40 mg Home Med (Cyclosporine [Restasis]) 1 drop BOTHEYES BID [facility] Last Admin: 05/20/17 09:09 Dose: 1 drop Home Med (Dorzolamide 2%/Timolol 0.5% [Cosopt 2%-0.5% Opht]) 1 drop EACHEYE BID [facility] Last Admin: 05/20/17 09:08 Dose: 1 drop Home Med (Tafluprost/Pf [Zioptan 0.0015% Eye Drops]) 1 drop EACHEYE HS [facility] Last Admin: 05/19/17 21:06 Dose: 1 drop Fluconazole (Diflucan Iv 100 Mg/50 Ml Ns) 50 mls @ 50 mls/hr IVPB DAILY@1700 [facility] Last Admin: 05/19/17 16:48 Dose: 50 mls/hr Indomethacin (Indocin) 75 mg PO DAILY PRN PRN Reason: Headache Last Admin: 05/17/17 16:07 Dose: 75 mg Multivitamins/Minerals (Therapeutic-M Tab) 1 tab PO DAILY [facility] Last Admin: 05/20/17 09:09 Dose: 1 tab Pantoprazole Sodium (Protonix Ec Tab) 40 mg PO DAILY [facility] Last Admin: 05/20/17 09:09 Dose: 40 mg Saccharomyces Boulardii (Florastor) 250 mg PO BID [facility] Last Admin: 05/20/17 09:09 Dose: 250 mg Sitagliptin Phosphate (Januvia) 50 mg PO DAILY [facility] Last Admin: 05/20/17 09:10 Dose: 50 mg - Labs Labs: 05/18/17 06:00 Assessment and Plan (1) Hypercapnia Status: Chronic (2) Chronic respiratory insufficiency Status: Chronic (3) COPD (chronic obstructive pulmonary disease) Status: Chronic
[2017-05-20] MEDS: Fluconazole IV 100mg/50 ml NS 50 ML IVPB SCH (16:25)
[2017-05-20] MEDS: TAFLUPROST EACHEYE SCH (21:09)
[2017-05-21 06:43] LABS: HEMATOCRIT 30.5 % (34.0-47.0); MEAN CELL VOLUME 102.2 fl (81.0-99.0); MEAN CORPUSCULAR HEMOGLOBIN 31.7 pg (27.0-31.0); RED CELL DISTRIBUTION WIDTH 18.5 % (11.5-14.5); WHITE BLOOD COUNT 6.2 K/uL (4.8-10.8)
[2017-05-21 06:58] LABS: ALB/GLOB RATIO 1.2 (1.0-2.1); BILIRUBIN,TOTAL 0.7 mg/dl (0.2-1.3); CALCIUM 9.2 mg/dL (8.4-10.2); POTASSIUM 4.4 MMOL/L (3.6-5.0); TOTAL PROTEIN 6.6 G/DL (6.3-8.2)
[2017-05-21 07:08] LABS: PARTIAL THROMBOPLASTIN TIME 36.5 Seconds (25.6-37.1)
--- NOTE | 2017-05-21 08:53 | CP.PCM.PN ---
Subjective - Date & Time of Evaluation Date of Evaluation: 05/21/17 Time of Evaluation: 09:00 - Subjective Subjective: Had nose bleeds last night X2 (Pt on Eliquis and has thrombocytopenia 113K) HR 60 BPM, BP 124/ 70 mm Hg No signs of CHF Have D/Joe Diflucan (?? cause of Thrombocytopenia) Will withold Eliquis and have ENT see pt Discussed at length with pt'son about the AICD (should it be deactivated) Have told him that the family needs to discuss fdc Rx and goal and expectations of her care Objective - Vital Signs/Intake and Output Vital Signs (last 24 hours): Temp Pulse Resp BP Pulse Ox 97.0 F L 79 20 117/66 99 05/21/17 08:04 05/21/17 08:04 05/21/17 08:04 05/21/17 08:04 05/21/17 08:04 - Medications Medications: Current Medications Acetaminophen (Tylenol 325mg Tab) 325 mg PO Q6 PRN PRN Reason: Headache Last Admin: 05/20/17 14:33 Dose: 325 mg Allopurinol (Zyloprim) 100 mg PO DAILY [facility] Last Admin: 05/20/17 09:10 Dose: 100 mg Alprazolam (Xanax) 0.25 mg PO BID PRN PRN Reason: Anxiety Stop: 05/23/17 23:13 Last Admin: 05/20/17 20:40 Dose: 0.25 mg Apixaban (Eliquis) 2.5 mg PO BID [facility] PRN Reason: Protocol Last Admin: 05/20/17 16:28 Dose: 2.5 mg Carvedilol (Coreg) 3.125 mg PO BID [facility] Last Admin: 05/20/17 16:26 Dose: 3.125 mg Ferrous Sulfate (Feosol) 325 mg PO BID [facility] Last Admin: 05/20/17 16:28 Dose: 325 mg Furosemide (Lasix) 40 mg PO Q12 [facility] Last Admin: 05/20/17 20:41 Dose: 40 mg Home Med (Cyclosporine [Restasis]) 1 drop BOTHEYES BID [facility] Last Admin: 05/20/17 16:27 Dose: 1 drop Home Med (Dorzolamide 2%/Timolol 0.5% [Cosopt 2%-0.5% Opht]) 1 drop EACHEYE BID [facility] Last Admin: 05/20/17 16:27 Dose: 1 drop Home Med (Tafluprost/Pf [Zioptan 0.0015% Eye Drops]) 1 drop EACHEYE HS [facility] Last Admin: 05/20/17 21:09 Dose: 1 drop Fluconazole (Diflucan Iv 100 Mg/50 Ml Ns) 50 mls @ 50 mls/hr IVPB DAILY@1700 [facility] Last Admin: 05/20/17 16:25 Dose: 50 mls/hr Multivitamins/Minerals (Therapeutic-M Tab) 1 tab PO DAILY [facility] Last Admin: 05/20/17 09:09 Dose: 1 tab Oxymetazoline HCl (Nasal Decongestant 15 Ml) 1 spr NS Q12 PRN PRN Reason: Nasal congestion Last Admin: 05/21/17 04:11 Dose: 1 spr Pantoprazole Sodium (Protonix Ec Tab) 40 mg PO DAILY [facility] Last Admin: 05/20/17 09:09 Dose: 40 mg Saccharomyces Boulardii (Florastor) 250 mg PO BID [facility] Last Admin: 05/20/17 16:28 Dose: 250 mg Sitagliptin Phosphate (Januvia) 50 mg PO DAILY [facility] Last Admin: 05/20/17 09:10 Dose: 50 mg - Labs Labs: 05/21/17 06:00 05/21/17 06:00 PT 20.9 Seconds (9.8-13.1) H 05/21/17 06:00 INR 2.0 (0.9-1.2) H 05/21/17 06:00 APTT 36.5 Seconds (25.6-37.1) 05/21/17 06:00
[2017-05-21] MEDS: Pantoprazole 40 mg EC Tab PO SCH (09:32)
[2017-05-21] MEDS: Saccharomyces Boulardi 250 mg Cap PO SCH ×2 (09:32→17:41)
[2017-05-21] MEDS: Multivitamin With Minerals Tab PO SCH (09:33)
[2017-05-21] MEDS: Patient's Own Med (Dorzolamide 2%/Timolol 0.5% [Cosopt 2%-0.5% Opht] 1 DROP) EACHEYE SCH ×2 (10:38→17:31)
[2017-05-21] MEDS: Patient's Own Med (Cyclosporine [Restasis] 1 DROP) BOTHEYES SCH ×2 (10:45→17:32)
[2017-05-21] MEDS ORDERED: Promethazine DM 6.25 mg-15 mg/5 ml Syrup PO PRN (11:36)
--- NOTE | 2017-05-21 16:47 | CP.PCM.PN ---
Subjective - Date & Time of Evaluation Date of Evaluation: 05/21/17 Time of Evaluation: 16:47 - Subjective Subjective: see below Objective - Vital Signs/Intake and Output Vital Signs (last 24 hours): Temp Pulse Resp BP Pulse Ox 97.0 F L 75 20 110/70 100 05/21/17 16:21 05/21/17 16:21 05/21/17 16:21 05/21/17 16:21 05/21/17 16:21 - Medications Medications: Current Medications Acetaminophen (Tylenol 325mg Tab) 325 mg PO Q6 PRN PRN Reason: Headache Last Admin: 05/21/17 12:24 Dose: 325 mg Allopurinol (Zyloprim) 100 mg PO DAILY [facility] Last Admin: 05/21/17 09:31 Dose: 100 mg Alprazolam (Xanax) 0.25 mg PO BID PRN PRN Reason: Anxiety Stop: 05/23/17 23:13 Last Admin: 05/21/17 13:53 Dose: 0.25 mg Benzonatate (Tessalon Perles) 200 mg PO TID PRN PRN Reason: Cough Carvedilol (Coreg) 3.125 mg PO BID [facility] Last Admin: 05/21/17 09:31 Dose: 3.125 mg Ferrous Sulfate (Feosol) 325 mg PO BID [facility] Last Admin: 05/21/17 09:30 Dose: 325 mg Furosemide (Lasix) 40 mg PO Q12 [facility] Last Admin: 05/21/17 09:32 Dose: 40 mg Home Med (Cyclosporine [Restasis]) 1 drop BOTHEYES BID [facility] Last Admin: 05/21/17 10:45 Dose: 1 drop Home Med (Dorzolamide 2%/Timolol 0.5% [Cosopt 2%-0.5% Opht]) 1 drop EACHEYE BID [facility] Last Admin: 05/21/17 10:38 Dose: 1 drop Home Med (Tafluprost/Pf [Zioptan 0.0015% Eye Drops]) 1 drop EACHEYE HS [facility] Last Admin: 05/20/17 21:09 Dose: 1 drop Multivitamins/Minerals (Therapeutic-M Tab) 1 tab PO DAILY [facility] Last Admin: 05/21/17 09:33 Dose: 1 tab Pantoprazole Sodium (Protonix Ec Tab) 40 mg PO DAILY [facility] Last Admin: 05/21/17 09:32 Dose: 40 mg Promethazine HCl/Dextromethorphan (Phenergan Dm Syrup) 5 ml PO Q8 PRN PRN Reason: Cough Saccharomyces Boulardii (Florastor) 250 mg PO BID [facility] Last Admin: 05/21/17 09:32 Dose: 250 mg Sitagliptin Phosphate (Januvia) 50 mg PO DAILY [facility] Last Admin: 05/21/17 09:33 Dose: 50 mg - Labs Labs: 05/21/17 06:00 05/21/17 06:00 PT 20.9 Seconds (9.8-13.1) H 05/21/17 06:00 INR 2.0 (0.9-1.2) H 05/21/17 06:00 APTT 36.5 Seconds (25.6-37.1) 05/21/17 06:00 Assessment and Plan - Assessment and Plan (Free Text) Assessment: 87 y/o female seen in TCU after acute hospitalization for Afib. Yesterday she had 2 episodes of right-sided epistaxis, for which i am asked to consult. She is on Eliquis. Past Medical History Afib CAD COPD Allergies Sulfa Past Social and Family Hx non-contributory Review of Systems see HPI Exam awake, alert, comfortable oc/op clear; no blood in oropharynx face symmetric, non-tender neck soft, no swelling, trachea midline nose: inferior septal spun on the right side; old blood in the right nasal cavity gently removed. there is a small superficial plexus on the right anterior septum. with gentle manipulation with q-tip, it bled briskly. pressure applied and area anesthetized with topical Lidocaine 4%. See procedure note below for cauterization. in addition, i also performed b/l nasal endoscopy; no other sources for bleeding seen in either nasal cavity or in the nasopharynx. Procedure Note: simple cauterization nose CPT 42558. Right nasal septum anesthetized with topical Lidocaine 4%. Using a headlight/nasal speculum, the bleeding vessel was identified. Under direct visualization, this vessel was successfully cauterized with silver nitrate. No complications. Patient tolerated procedure well. impression epistaxis s/p cautery deviated nasal septum recommend HOB elevation humidified O2 no nose picking call if re-bleeds d/w patient's son at bedside
[2017-05-21] MEDS: TAFLUPROST EACHEYE SCH (21:59)
[2017-05-22 06:13] LABS: BASO % 0.1 % (0.0-2.0); EOS % 0.1 % (0.0-4.0); HEMATOCRIT 32.4 % (34.0-47.0); LYMPH # 0.4 K/uL (1.0-4.3); LYMPH % 2.9 % (20.0-40.0); MEAN CELL VOLUME 102.7 fl (81.0-99.0); MEAN CORPUSCULAR HEMOGLOBIN 31.6 pg (27.0-31.0); MEAN CORPUSCULAR HGB CONC 30.8 g/dL (33.0-37.0); MEAN PLATELET VOLUME 10.3 fl (7.2-11.7); MONO # 0.7 K/uL (0.0-0.8); MONO % 5.4 % (0.0-10.0); NEUT # 12.1 K/uL (1.8-7.0); NEUT % 91.5 % (50.0-75.0); PLATELET COUNT 130 K/uL (130-400); RED CELL DISTRIBUTION WIDTH 18.4 % (11.5-14.5); WHITE BLOOD COUNT 13.2 K/uL (4.8-10.8)
[2017-05-22 08:47] LABS: BASOPHIL 1 % (0-2); GIANT PLATELETS PRESENT; LARGE PLATELETS PRESENT; NEUTROPHIL 88 % (42-75); TOTAL CELLS COUNTED 100
[2017-05-22] MEDS: Patient's Own Med (Cyclosporine [Restasis] 1 DROP) BOTHEYES SCH ×2 (08:48→17:25)
[2017-05-22] MEDS: Pantoprazole 40 mg EC Tab PO SCH (08:48)
[2017-05-22] MEDS: Saccharomyces Boulardi 250 mg Cap PO SCH ×2 (08:48→17:27)
[2017-05-22] MEDS: Multivitamin With Minerals Tab PO SCH (08:50)
[2017-05-22] MEDS: Patient's Own Med (Dorzolamide 2%/Timolol 0.5% [Cosopt 2%-0.5% Opht] 1 DROP) EACHEYE SCH ×2 (08:54→17:31)
--- NOTE | 2017-05-22 10:38 | CP.PCM.PN ---
Subjective - Date & Time of Evaluation Date of Evaluation: 05/22/17 Time of Evaluation: 10:00 - Subjective Subjective: Appears exhausted, C/O SOB Resp rate 20BPM, periodically coughs (has bronchial secretions ++) HR 60 BPM BP 124/70 mm Hg JVP mildly elevated Scattered rales++/ Wheez+ Apical syst murmur of MR+ Pulse Ox 97% on O2 supplement Chest x-ray reviewed (bilt pleural effusion) Venous prominence+ Will Rx with IV lasix Objective - Vital Signs/Intake and Output Vital Signs (last 24 hours): Temp Pulse Resp BP Pulse Ox 97.8 F 81 20 120/59 L 100 05/22/17 08:28 05/22/17 08:49 05/22/17 08:28 05/22/17 08:50 05/22/17 08:28 - Medications Medications: Current Medications Acetaminophen (Tylenol 325mg Tab) 325 mg PO Q6 PRN PRN Reason: Headache Last Admin: 05/22/17 07:01 Dose: 325 mg Allopurinol (Zyloprim) 100 mg PO DAILY [facility] Last Admin: 05/22/17 08:48 Dose: 100 mg Alprazolam (Xanax) 0.25 mg PO BID PRN PRN Reason: Anxiety Stop: 05/23/17 23:13 Last Admin: 05/21/17 23:48 Dose: 0.25 mg Benzonatate (Tessalon Perles) 200 mg PO TID PRN PRN Reason: Cough Last Admin: 05/22/17 08:47 Dose: 200 mg Carvedilol (Coreg) 3.125 mg PO BID [facility] Last Admin: 05/22/17 08:49 Dose: 3.125 mg Ferrous Sulfate (Feosol) 325 mg PO BID [facility] Last Admin: 05/22/17 08:49 Dose: 325 mg Furosemide (Lasix) 40 mg PO Q12 [facility] Last Admin: 05/22/17 08:50 Dose: 40 mg Home Med (Cyclosporine [Restasis]) 1 drop BOTHEYES BID [facility] Last Admin: 05/22/17 08:48 Dose: 1 drop Home Med (Dorzolamide 2%/Timolol 0.5% [Cosopt 2%-0.5% Opht]) 1 drop EACHEYE BID [facility] Last Admin: 05/22/17 08:54 Dose: 1 drop Home Med (Tafluprost/Pf [Zioptan 0.0015% Eye Drops]) 1 drop EACHEYE [facility] Last Admin: 05/21/17 21:59 Dose: 1 drop Multivitamins/Minerals (Therapeutic-M Tab) 1 tab PO DAILY [facility] Last Admin: 05/22/17 08:50 Dose: 1 tab Pantoprazole Sodium (Protonix Ec Tab) 40 mg PO DAILY [facility] Last Admin: 05/22/17 08:48 Dose: 40 mg Promethazine HCl/Dextromethorphan (Phenergan Dm Syrup) 5 ml PO Q8 PRN PRN Reason: Cough Saccharomyces Boulardii (Florastor) 250 mg PO BID [facility] Last Admin: 05/22/17 08:48 Dose: 250 mg Sitagliptin Phosphate (Januvia) 50 mg PO DAILY [facility] Last Admin: 05/22/17 08:48 Dose: 50 mg - Labs Labs: 05/22/17 06:00 05/21/17 06:00 PT 20.9 Seconds (9.8-13.1) H 05/21/17 06:00 INR 2.0 (0.9-1.2) H 05/21/17 06:00 APTT 36.5 Seconds (25.6-37.1) 05/21/17 06:00
--- NOTE | 2017-05-22 10:38 | RAD ---
HISTORY: cough COMPARISON: Portable chest 05/15/2017 FINDINGS: LUNGS: No active pulmonary disease. PLEURA: Trace right pleural effusion noted. None is seen the left. No pneumothorax bilaterally. CARDIOVASCULAR: Stable cardiomegaly. No definite pulmonary vascular derangement. Left-sided pacemaker/ implanted defibrillator again evident with orphaned right-sided pacemaker leads again evident as well. OSSEOUS STRUCTURES: No significant abnormalities. VISUALIZED UPPER ABDOMEN: Normal. OTHER FINDINGS: None. IMPRESSION: Stable cardiomegaly. Trace right pleural effusion identified. No acute infiltrate bilaterally.
--- NOTE | 2017-05-22 11:34 | CP.PCM.PN ---
Subjective - Date & Time of Evaluation Date of Evaluation: 05/22/17 Time of Evaluation: 11:30 - Subjective Subjective: Seated in a bedside chair. Somnolent today, but easily awakens and is coherent. Complains she feels fatigued and tired today. Congested cough, non-productive. AM labs noted (WBC 13). Resting SpO2 on 1LPM nasal oxygen is 93% presently. CXR done this morning is essentially the same, no infiltrates. Right costophrenic angle is blunted chronically. Neck is supple, trachea midline, no JVD (seated upright). Breath sounds are diminished bilaterally w/o wheeze. Scattered sonorous rhonchi with few basal rales bilaterally. Receiving IV furosemide presently. Promethazine DM d/c'd (sedating effect). Benzonatate is as needed only (can also be sedating). Will add levalbuterol nebs Q8H. Objective - Vital Signs/Intake and Output Vital Signs (last 24 hours): Temp Pulse Resp BP Pulse Ox 97.8 F 81 20 120/62 100 05/22/17 08:28 05/22/17 08:49 05/22/17 08:28 05/22/17 11:06 05/22/17 08:28 - Medications Medications: Current Medications Acetaminophen (Tylenol 325mg Tab) 325 mg PO Q6 PRN PRN Reason: Headache Last Admin: 05/22/17 07:01 Dose: 325 mg Allopurinol (Zyloprim) 100 mg PO DAILY [facility] Last Admin: 05/22/17 08:48 Dose: 100 mg Alprazolam (Xanax) 0.25 mg PO BID PRN PRN Reason: Anxiety Stop: 05/23/17 23:13 Last Admin: 05/21/17 23:48 Dose: 0.25 mg Benzonatate (Tessalon Perles) 200 mg PO TID PRN PRN Reason: Cough Last Admin: 05/22/17 08:47 Dose: 200 mg Carvedilol (Coreg) 3.125 mg PO BID [facility] Last Admin: 05/22/17 08:49 Dose: 3.125 mg Ferrous Sulfate (Feosol) 325 mg PO BID [facility] Last Admin: 05/22/17 08:49 Dose: 325 mg Furosemide (Lasix) 40 mg PO Q12 [facility] Last Admin: 05/22/17 08:50 Dose: 40 mg Home Med (Cyclosporine [Restasis]) 1 drop BOTHEYES BID [facility] Last Admin: 05/22/17 08:48 Dose: 1 drop Home Med (Dorzolamide 2%/Timolol 0.5% [Cosopt 2%-0.5% Opht]) 1 drop EACHEYE BID [facility] Last Admin: 05/22/17 08:54 Dose: 1 drop Home Med (Tafluprost/Pf [Zioptan 0.0015% Eye Drops]) 1 drop EACHEYE HS [facility] Last Admin: 05/21/17 21:59 Dose: 1 drop Levalbuterol HCl (Xopenex) 0.63 mg INH RQ8 [facility] Multivitamins/Minerals (Therapeutic-M Tab) 1 tab PO DAILY [facility] Last Admin: 05/22/17 08:50 Dose: 1 tab Pantoprazole Sodium (Protonix Ec Tab) 40 mg PO DAILY [facility] Last Admin: 05/22/17 08:48 Dose: 40 mg Promethazine HCl/Dextromethorphan (Phenergan Dm Syrup) 5 ml PO Q8 PRN PRN Reason: Cough Saccharomyces Boulardii (Florastor) 250 mg PO BID [facility] Last Admin: 05/22/17 08:48 Dose: 250 mg Sitagliptin Phosphate (Januvia) 50 mg PO DAILY [facility] Last Admin: 05/22/17 08:48 Dose: 50 mg - Labs Labs: 05/22/17 06:00 05/21/17 06:00 PT 20.9 Seconds (9.8-13.1) H 05/21/17 06:00 INR 2.0 (0.9-1.2) H 05/21/17 06:00 APTT 36.5 Seconds (25.6-37.1) 05/21/17 06:00 Assessment and Plan (1) Hypercapnia Status: Chronic (2) Chronic respiratory insufficiency Status: Chronic (3) COPD (chronic obstructive pulmonary disease) Status: Chronic
[2017-05-22 14:54] LABS: RBC URINE 1 /hpf (0-3); URINE BILIRUBIN NEGATIVE (NEGATIVE); URINE BLOOD NEGATIVE (NEGATIVE); URINE COLOR YELLOW (YELLOW); URINE GLUCOSE (UA) NEG (Normal); URINE KETONE NEGATIVE (NEGATIVE); URINE LEUKOCYTE ESTERASE NEG Leu/uL (Negative); URINE PROTEIN NEGATIVE (NEGATIVE); URINE UROBILINOGEN 0.2-1.0 mg/dL (0.2-1.0); WBC URINE 1 /hpf (0-5)
[2017-05-22] MEDS: Levalbuterol 0.63 MG/3 ML Inhal Soln UD INH SCH ×2 (15:43→23:55)
[2017-05-22] MEDS: Hydrocortisone 2.5% (Rectal) CREAM PR SCH (22:31)
[2017-05-22] MEDS: TAFLUPROST EACHEYE SCH (23:02)
[2017-05-23] MEDS: Levalbuterol 0.63 MG/3 ML Inhal Soln UD INH SCH (07:27)
--- NOTE | 2017-05-23 09:21 | CP.PCM.PN ---
Subjective - Date & Time of Evaluation Date of Evaluation: 05/23/17 Time of Evaluation: 09:21 - Subjective Subjective: Awake, congested cough. No cyanosis. + dependant edema, but slightly less. Rhonchi present in lower lobes bilaterally. Few medium rales in LL's. No audible wheezes or bronchial breath sounds. SpO2 94% on 1LPM nasal canula. Objective - Vital Signs/Intake and Output Vital Signs (last 24 hours): Temp Pulse Resp BP Pulse Ox 98.1 F 82 20 127/57 L 100 05/22/17 20:09 05/22/17 20:09 05/22/17 20:09 05/22/17 20:48 05/22/17 20:09 - Medications Medications: Current Medications Acetaminophen (Tylenol 325mg Tab) 325 mg PO Q6 PRN PRN Reason: Headache Last Admin: 05/22/17 13:32 Dose: 325 mg Allopurinol (Zyloprim) 100 mg PO DAILY [facility] Last Admin: 05/22/17 08:48 Dose: 100 mg Alprazolam (Xanax) 0.25 mg PO BID PRN PRN Reason: Anxiety Stop: 05/23/17 23:13 Last Admin: 05/22/17 14:07 Dose: 0.25 mg Benzonatate (Tessalon Perles) 200 mg PO TID PRN PRN Reason: Cough Last Admin: 05/22/17 22:52 Dose: 200 mg Carvedilol (Coreg) 3.125 mg PO BID [facility] Last Admin: 05/22/17 17:27 Dose: 3.125 mg Ferrous Sulfate (Feosol) 325 mg PO BID [facility] Last Admin: 05/22/17 17:28 Dose: 325 mg Furosemide (Lasix) 40 mg PO Q12 [facility] Last Admin: 05/22/17 20:28 Dose: Not Given Home Med (Cyclosporine [Restasis]) 1 drop BOTHEYES BID [facility] Last Admin: 05/22/17 17:25 Dose: 1 drop Home Med (Dorzolamide 2%/Timolol 0.5% [Cosopt 2%-0.5% Opht]) 1 drop EACHEYE BID [facility] Last Admin: 05/22/17 17:31 Dose: 1 drop Home Med (Tafluprost/Pf [Zioptan 0.0015% Eye Drops]) 1 drop EACHEYE HS [facility] Last Admin: 05/22/17 23:02 Dose: 1 drop Hydrocortisone (Anusol-Hc) 1 applic IN BID [facility] Last Admin: 05/22/17 22:31 Dose: 1 u Levalbuterol HCl (Xopenex) 0.63 mg INH RQ8 [facility] Last Admin: 05/23/17 07:27 Dose: 0.63 mg Multivitamins/Minerals (Therapeutic-M Tab) 1 tab PO DAILY [facility] Last Admin: 05/22/17 08:50 Dose: 1 tab Pantoprazole Sodium (Protonix Ec Tab) 40 mg PO DAILY [facility] Last Admin: 05/22/17 08:48 Dose: 40 mg Saccharomyces Boulardii (Florastor) 250 mg PO BID [facility] Last Admin: 05/22/17 17:27 Dose: 250 mg Sitagliptin Phosphate (Januvia) 50 mg PO DAILY [facility] Last Admin: 05/22/17 08:48 Dose: 50 mg - Labs Labs: 05/22/17 06:00 05/21/17 06:00 PT 20.9 Seconds (9.8-13.1) H 05/21/17 06:00 INR 2.0 (0.9-1.2) H 05/21/17 06:00 APTT 36.5 Seconds (25.6-37.1) 05/21/17 06:00 Assessment and Plan (1) Hypercapnia Status: Chronic (2) Chronic respiratory insufficiency Status: Chronic (3) COPD (chronic obstructive pulmonary disease) Status: Chronic
[2017-05-23] MEDS: Hydrocortisone 2.5% (Rectal) CREAM PR SCH (09:52)
[2017-05-23] MEDS: Patient's Own Med (Cyclosporine [Restasis] 1 DROP) BOTHEYES SCH (09:52)
[2017-05-23] MEDS: Patient's Own Med (Dorzolamide 2%/Timolol 0.5% [Cosopt 2%-0.5% Opht] 1 DROP) EACHEYE SCH (09:53)
[2017-05-23] MEDS: Pantoprazole 40 mg EC Tab PO SCH (09:54)
[2017-05-23] MEDS: Saccharomyces Boulardi 250 mg Cap PO SCH (09:54)
[2017-05-23] MEDS: Multivitamin With Minerals Tab PO SCH (09:55)
[2017-05-23 10:28] VITALS: RESP 18; TEMP 97.9
[2017-05-23 10:39] VITALS: BP 119/64; PULSE 81
[2017-05-23] MEDS ORDERED: Levalbuterol 0.63 MG/3 ML Inhal Soln UD IH ONE (11:25)
[2017-05-23] MEDS ORDERED: Levalbuterol 0.63 MG/3 ML Inhal Soln UD ONE (11:27)
--- NOTE | 2017-05-23 11:33 | CP.PCM.PN ---
Subjective - Date & Time of Evaluation Date of Evaluation: 05/23/17 Time of Evaluation: 11:10 - Subjective Subjective: Continues to be moderately dyspnoic Resp rate 18-20 BPM Pulse ox on 1 litre of O2 supplement 90% Bronch secretions ++ Pt appears too infirm to have effective expectoration JVP flat, no rales (Insp effort poor) Will arrange resp Tx with Xopenex Discussed pt's condition with her son There is no clear health care proxy Issue of DNR has not been discussed by her children Spoke with Dr. Chaparro Objective - Vital Signs/Intake and Output Vital Signs (last 24 hours): Temp Pulse Resp BP Pulse Ox 97.9 F 81 18 119/64 97 05/23/17 10:27 05/23/17 10:38 05/23/17 10:27 05/23/17 10:38 05/23/17 10:27 - Medications Medications: Current Medications Acetaminophen (Tylenol 325mg Tab) 325 mg PO Q6 PRN PRN Reason: Headache Last Admin: 05/23/17 10:09 Dose: 325 mg Allopurinol (Zyloprim) 100 mg PO DAILY [facility] Last Admin: 05/23/17 09:55 Dose: 100 mg Alprazolam (Xanax) 0.25 mg PO BID PRN PRN Reason: Anxiety Stop: 05/23/17 23:13 Last Admin: 05/22/17 14:07 Dose: 0.25 mg Benzonatate (Tessalon Perles) 200 mg PO TID PRN PRN Reason: Cough Last Admin: 05/23/17 10:10 Dose: 200 mg Carvedilol (Coreg) 3.125 mg PO BID [facility] Last Admin: 05/23/17 10:38 Dose: 3.125 mg Ferrous Sulfate (Feosol) 325 mg PO BID [facility] Last Admin: 05/23/17 09:53 Dose: 325 mg Furosemide (Lasix) 40 mg PO Q12 [facility] Last Admin: 05/23/17 10:37 Dose: 40 mg Home Med (Cyclosporine [Restasis]) 1 drop BOTHEYES BID [facility] Last Admin: 05/23/17 09:52 Dose: 1 drop Home Med (Dorzolamide 2%/Timolol 0.5% [Cosopt 2%-0.5% Opht]) 1 drop EACHEYE BID [facility] Last Admin: 05/23/17 09:53 Dose: 1 drop Home Med (Tafluprost/Pf [Zioptan 0.0015% Eye Drops]) 1 drop EACHEYE HS [facility] Last Admin: 05/22/17 23:02 Dose: 1 drop Hydrocortisone (Anusol-Hc) 1 applic [place] BID [facility] Last Admin: 05/23/17 09:52 Dose: 1 u Levalbuterol HCl (Xopenex) 0.63 mg INH RQ8 [facility] Last Admin: 05/23/17 07:27 Dose: 0.63 mg Levalbuterol HCl (Xopenex) 0.63 mg IH ONCE ONE Stop: 05/23/17 11:26 Multivitamins/Minerals (Therapeutic-M Tab) 1 tab PO DAILY [facility] Last Admin: 05/23/17 09:55 Dose: 1 tab Pantoprazole Sodium (Protonix Ec Tab) 40 mg PO DAILY [facility] Last Admin: 05/23/17 09:54 Dose: 40 mg Saccharomyces Boulardii (Florastor) 250 mg PO BID [facility] Last Admin: 05/23/17 09:54 Dose: 250 mg Sitagliptin Phosphate (Januvia) 50 mg PO DAILY [facility] Last Admin: 05/23/17 09:54 Dose: 50 mg - Labs Labs: 05/22/17 06:00 05/21/17 06:00 PT 20.9 Seconds (9.8-13.1) H 05/21/17 06:00 INR 2.0 (0.9-1.2) H 05/21/17 06:00 APTT 36.5 Seconds (25.6-37.1) 05/21/17 06:00
[2017-05-23 14:50] VITALS: O2SAT 91
--- NOTE | 2017-05-23 15:20 | PCM.RRT ---
ATTACHE Nurse Assessment - Situation ATTACHE Responder Arrival Time: 13:55 Location: TCU Room Number: 709-1 ATTACHE Reason for Call: Change in Mental Status ATTACHE Called By: RN - IV IV Inserted during ATTACHE?: No - Respiratory Oxygen Delivery Method: Nasal Cannula - Vital Signs Vital Signs: Rapid Response Vital Sign Blood Pressure 136/79 Pulse Rate 83 Respiratory Rate 18 Oxygen Saturation 95 - Time ATTACHE Ended Time ATTACHE Ended: 14:15 - Recommendations ATTACHE Level of Care Recommendations: Discharge to Emergency Room I.Reason for ATTACHE - A) Acute Change in Patient: Subjective: ATTACHE was called for and 87-year-old female with 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 At the time of arrival patient was found alert, confused, tachypneic, pale, with nasal cannula in place at 1.2 LMP. Denies chest pain, - Neurological Status (Select all that apply): Alert, Responsive, Verbal, Confused - Respiratory Oxygen Delivery Method: Nasal Cannula @L/min Oxygen Flow Rate: 1.2 - Respiratory Exam Respiratory Exam: Decreased Breath Sounds, NORMAL BREATHING PATTERN - Cardiovascular Exam Cardiovascular Exam: REGULAR RHYTHM, +S1, +S2 - GI/Abdominal Exam GI & Abdominal Exam: Soft, Normal Bowel Sounds. absent: Guarding, Rigid, Tenderness - Neurological Exam Neurological Exam: Alert, Awake - Extremities Exam Extremities Exam: Pedal Edema (edema in lower extremities bilateral pitting 2+) Plan - Assessment of Findings&Treatment Plan A/P:87 y/o F with COPD with altered mental status. Plan: c/w NC 1.2 LMP transfer to ER for further assessment, and management
== END 2017-05-23 14:00 | disposition short-term general hospital (02) | DRG 264 ==
LOC: H.TCU 20:28
PROVIDERS: ADMIT Internal Medicine Cardiovascular Disease; ATTEND Internal Medicine Cardiovascular Disease
PROC: F07Z9FZ Gait Training/Functional Ambulation Treatment using Assistive, Adaptive, Supportive or Protective Equipment (ICD-10-PCS; principal; 2017-05-17)
PROC: F07M6FZ Therapeutic Exercise Treatment of Musculoskeletal System - Whole Body using Assistive, Adaptive, Supportive or Protective Equipment (ICD-10-PCS; 2017-05-17)
PROC: F08Z4FZ Home Management Treatment using Assistive, Adaptive, Supportive or Protective Equipment (ICD-10-PCS; 2017-05-17)
PROC: 0W3Q7ZZ Control Bleeding in Respiratory Tract, Via Natural or Artificial Opening (ICD-10-PCS; 2017-05-21)
PROC: 3E0F7GC Introduction of Other Therapeutic Substance into Respiratory Tract, Via Natural or Artificial Opening (ICD-10-PCS; 2017-05-23)
DX: I11.0 Hypertensive heart disease with heart failure (principal); E87.2 Acidosis; R06.89 Other abnormalities of breathing; D69.6 Thrombocytopenia, unspecified; F03.90 Unspecified dementia, unspecified severity, without behavioral disturbance, psychotic disturbance, mood disturbance, and anxiety; E11.9 Type 2 diabetes mellitus without complications; D64.9 Anemia, unspecified; E78.00 Pure hypercholesterolemia, unspecified; R09.02 Hypoxemia; H35.30 Unspecified macular degeneration; I25.10 Atherosclerotic heart disease of native coronary artery without angina pectoris; I25.2 Old myocardial infarction; I34.0 Nonrheumatic mitral (valve) insufficiency; I48.2 Chronic atrial fibrillation; I50.22 Chronic systolic (congestive) heart failure; J34.2 Deviated nasal septum; J44.9 Chronic obstructive pulmonary disease, unspecified; R04.0 Epistaxis; R32 Unspecified urinary incontinence; Z87.891 Personal history of nicotine dependence; Z90.710 Acquired absence of both cervix and uterus; Z95.0 Presence of cardiac pacemaker; Z95.1 Presence of aortocoronary bypass graft; Z95.810 Presence of automatic (implantable) cardiac defibrillator; H26.9 Unspecified cataract; K29.70 Gastritis, unspecified, without bleeding; R60.0 Localized edema; R26.81 Unsteadiness on feet; R41.89 Other symptoms and signs involving cognitive functions and awareness; R45.1 Restlessness and agitation; R63.0 Anorexia; Z68.25 Body mass index [BMI] 25.0-25.9, adult; R41.82 Altered mental status, unspecified

== ENCOUNTER 2017-05-23 14:13 | Inpatient (IN) | payer MEDICARE, OTHER ==
--- NOTE | 2017-05-23 14:40 | ED PDOC ---
HPI: SOB/CHF/COPD Time Seen by Provider: 05/23/17 14:19 Chief Complaint (Nursing): Shortness Of Breath Chief Complaint (Provider): Shortness of Breath History Per: Other (nursing staff upstairs) History/Exam Limitations: no limitations Onset/Duration Of Symptoms: Hrs (prior to arrival ) Additional Complaint(s): Estephania Gomez is a 87 year old female with a past medical history of CHF with a low ejection fraction transferred to the ED today from TCU for increasing lethargy and shortness of breath. The patient's PMD found her to be hypercarbic 2 days ago due to the limited amount of oxygen she is getting. PMD: Kyaw Mcmahan MD Past Medical History Reviewed: Historical Data, Nursing Documentation, Vital Signs Vital Signs: Last Vital Signs Temp 97.6 F 05/23/17 14:37 Pulse 79 05/23/17 14:15 Resp 22 05/23/17 14:47 BP 119/59 L 05/23/17 14:32 Pulse Ox 94 L 05/23/17 14:47 - Medical History PMH: Anemia, Atrial Fibrillation, CAD, Cardia Arrhythmia, CHF, COPD, Dementia, Diabetes, Gastritis, HTN, Hypercholesterolemia, Peripheral Edema Denies: HIV, Chronic Kidney Disease - Surgical History Surgical History: CABG, Pacemaker Denies: Appendectomy - Family History Family History: States: Unknown Family Hx - Social History Current smoker - smoking cessation education provided: No Ex-Smoker (has not smoked in the last 12 months): Yes Alcohol: None Drugs: Denies - Home Medications Home Medications: Ambulatory Orders Medication Instructions Recorded Dorzolamide 2%/Timolol 0.5% 1 drop EACHEYE BID 06/17/14 [Cosopt 2%-0.5% Opht] Carvedilol [Coreg] 3.125 mg PO BID 04/23/17 Pantoprazole [Protonix EC Tab] 40 mg PO DAILY 04/23/17 cycloSPORINE [Restasis] 1 drop BOTHEYES BID 04/23/17 SITagliptin [Januvia] 50 mg PO DAILY #0 tab 05/09/17 ALPRAZolam [Xanax] 0.25 mg PO BID PRN 05/12/17 Allopurinol [Zyloprim] 100 mg PO DAILY 05/12/17 Ferrous Sulfate [Feosol] 325 mg PO BID 05/12/17 Multivit-Min/FA/Lycopen/Lutein 1 tab PO DAILY 05/12/17 [Centrum Silver Tablet] Tafluprost/Pf [Zioptan 0.0015% Eye 1 drop EACHEYE HS 05/12/17 Drops] Acetaminophen [Tylenol 325mg tab] 325 mg PO Q6H PRN 05/23/17 Benzonatate [Benzonatate] 200 mg PO TID PRN 05/23/17 Furosemide [Lasix] 40 mg PO Q12H 05/23/17 Hydrocortisone 2.5% (Rectal) 1 applic OK BID 05/23/17 [Anusol-HC] Levalbuterol [Xopenex] 0.63 mg IH Q8H 05/23/17 Saccharomyces Boulardi [Florastor] 250 mg PO BID 05/23/17 - Allergies Allergies/Adverse Reactions: Allergies Allergy/AdvReac Type Severity Reaction Status Date / Time Sulfa (Sulfonamide Allergy ITCHING Verified 05/23/17 14:24 Antibiotics) preservatives Allergy Unknown SWELLING Uncoded 05/23/17 14:24 Review of Systems ROS Statement: Except As Marked, All Systems Reviewed And Found Negative Constitutional: Positive for: Other (increasing lethargy; hypercarbic ) Respiratory: Positive for: Shortness of Breath Physical Exam - Reviewed Nursing Documentation Reviewed: Yes Vital Signs Reviewed: Yes - Physical Exam Appears: Positive for: Non-toxic Head Exam: Positive for: ATRAUMATIC Cardiovascular/Chest: Positive for: Regular Rate, Rhythm Respiratory: Positive for: Rales (1/3 up bilaterally), Respiratory Distress (in mild respiratory distress ). Negative for: Wheezing Extremity: Positive for: Pedal Edema (1-2+ pitting edema ) Neurologic/Psych: Positive for: Mood/Affect (Arousable ), Other (Lethargic). Negative for: Motor/Sensory Deficits - ECG O2 Sat by Pulse Oximetry: 94 (RA) Pulse Ox Interpretation: Normal Medical Decision Making Medical Decision Making: Time: 14:19 Impression: Shortness of breath Plan: * ABG * B-type Natriuretic Peptide * CMP * Troponin I * CBC (with differential) * Blood Culture * Mackey * Vapotherm * UA * Chest Portable [RAD] * Lasix 40 mg IVP * Morphine 2 mg IVP * Admit to Hospital Routine Scribe Attestation: Documented by Nataly Dominguez, acting as a scribe for Saleem Arroyo MD. Provider Scribe Attestation: All medical record entries made by the Scribe were at my direction and personally dictated by me. I have reviewed the chart and agree that the record accurately reflects my personal performance of the history, physical exam, medical decision making, and the department course for this patient. I have also personally directed, reviewed, and agree with the discharge instructions and disposition. Disposition - Clinical Impression Clinical Impression: CHF (congestive heart failure), Hypercarbia - Patient ED Disposition Is Patient to be Admitted: Yes - Disposition Disposition Time: 14:50 Condition: FAIR Forms: [employer] (Nepali) - Pt Status Changed To: Hospital Disposition Of: Inpatient - Admit Certification Admit to Inpatient:: After my assessment, the patient will require hospitalization for at least two midnights. This is because of the severity of symptoms shown, intensity of services needed, and/or the medical risk in this patient being treated as an outpatient. - POA Present On Arrival: None
[2017-05-23 14:43] LABS: ABG ALLEN TEST YES; ARTERIAL BLOOD GAS HCO3 33.3 mmol/L (21-28); ARTERIAL BLOOD GAS PH 7.34 (7.35-7.45); ARTERIAL BLOOD GAS PO2 68 mm/Hg (80-100)
[2017-05-23 14:51] LABS: ALB/GLOB RATIO 1.1 (1.0-2.1); BILIRUBIN,TOTAL 0.8 mg/dl (0.2-1.3); CALCIUM 9.3 mg/dL (8.4-10.2)
[2017-05-23 14:58] LABS: URINE BACTERIA RARE (<OCC); URINE BILIRUBIN NEGATIVE (NEGATIVE); URINE BLOOD SMALL (NEGATIVE); URINE COLOR YELLOW (YELLOW); URINE GLUCOSE (UA) NEG (Normal); URINE KETONE NEGATIVE (NEGATIVE); URINE LEUKOCYTE ESTERASE TRACE Leu/uL (Negative); URINE PROTEIN 100 mg/dL (NEGATIVE); URINE UROBILINOGEN 0.2-1.0 mg/dL (0.2-1.0)
[2017-05-23 15:04] LABS: TROPONIN I 0.031 ng/mL (0.00-0.120)
[2017-05-23 15:09] LABS: RBC URINE 12 /hpf (0-3); WBC URINE 17 /hpf (0-5)
[2017-05-23 15:22] LABS: BASO % 0.6 % (0.0-2.0); EOS % 0.4 % (0.0-4.0); HEMATOCRIT 32.5 % (34.0-47.0); LYMPH # 0.3 K/uL (1.0-4.3); LYMPH % 4.7 % (20.0-40.0); MEAN CELL VOLUME 103.1 fl (81.0-99.0); MEAN CORPUSCULAR HEMOGLOBIN 31.7 pg (27.0-31.0); MEAN CORPUSCULAR HGB CONC 30.8 g/dL (33.0-37.0); MEAN PLATELET VOLUME 10.8 fl (7.2-11.7); MONO # 0.6 K/uL (0.0-0.8); MONO % 8.8 % (0.0-10.0); NEUT # 5.8 K/uL (1.8-7.0); NEUT % 85.5 % (50.0-75.0); NRBC % 0.1 % (0.0-0.0); RED CELL DISTRIBUTION WIDTH 18.5 % (11.5-14.5); WHITE BLOOD COUNT 6.8 K/uL (4.8-10.8)
--- NOTE | 2017-05-23 15:22 | RAD ---
HISTORY: cough COMPARISON: 05/22/2017 FINDINGS: LUNGS: No active pulmonary disease. There are low lung volumes. No focal consolidation. PLEURA: No significant pleural effusion identified, no pneumothorax apparent. CARDIOVASCULAR: There is mild cardiomegaly. Atherosclerotic aortic arch calcifications are present. . There is stable position of a left-sided dual lead transvenous permanent pacing device. Status post median sternotomy. OSSEOUS STRUCTURES: No significant abnormalities. VISUALIZED UPPER ABDOMEN: Normal. OTHER FINDINGS: None. IMPRESSION: No active pulmonary disease.
[2017-05-23] MEDS ORDERED: Milrinone 20mg/100ml D5W 100 ML IV SCH (16:15)
--- NOTE | 2017-05-23 16:19 | CP.CCUPN ---
CCU Subjective - Physician Review Subjective (Free Text): 87F with extensive cardiac history, seen by [employer]IDE SALES ASSISTANT today for lethargy and congestion, found to be in hypercarbic resp failure and in CHF, transferred to ER for further eval. In ER, given Lasix 40mg IVP, Morphine 2 mg IVP and Mackey placed. She did not tolerate BiPAP, subsequently placed on HFNC. She appears somnolent, head slumped forward, but is easily arousable to verbal stimuli and answers appropriately. She denies any chest discomfort and feels the nasal cannula flow burning her nose. She recently underwent nasal cautery for epistaxis. Nitrate use was anticipated, however withheld 2 low BP. She denies any dizziness, headaches, nausea, palpitations now. Other vitals and I/O's reviewed. No fever spikes noted, temps mostly 98F. ALLERGIES: Sulfa abx Home Meds: Januvia, Protonix, Feosol, Coreg 3.25mg bid, Xanax, Lasix 40 Q12h, Xanax, Xopenex, Allopurinol. ROS: unobtainable from lethargic patient. No other pertinent negs or positives on 10+ system review. PMSFH: Chronic A fib-on AC, CABG, AICD, Pericardiectomy in 90s, HTN, UGIB, DM II, Dementia, COPD, chronic disease anemia. All Nursing and physician documentation reviewed to date; no new pertinent info noted relevant to current medical problems. CXR: (my interp) Bilateral blunting of carry out clerk, no gross consolidation, no worsening from serial review of films from last month. Labs from 05/21-05/22 while in TCU reviewed: INR= 2.0, WBC= 13.2, HGB 10.0, Plts= 130K, BUN/Cr= 29/1.2, Serum Bicarb= 36, BNP = [id number] yesterday. MAJOR PROBLEMS: 1. Acute Hypercapneic Resp Failure 2 Decompensated L-CHF / Cardiomyopathy 2. r/o AMI 3. Chronic A fib on AC 4. Chronic Disease Anemia / Thrombocytopenia 5. Dementia / Delirium 6. DM II PLAN: 1. Patient did not tolerate BiPAP support, switched to trial on HFNC, currently on 35% oxygen at 20 LPM. Would increase flow higher to at least 40 LPM (if tolerable) to help eliminate CO2. Check repeat ABG. 2. Lasix, Morphine given in ER; nitrates not given due to borderline hypotension. Mackey placed, now starting to make some urine. 3. Will consider Dobutamine or may tolerate Milrinone better given her h/o Pulm HTN. Lactate level currently is normal. Check SvO2 if feasible, follow serial Lactates. 4. Serial Trop monitoring. Last ECHO done 05/13/17 reviewed. 5. Consider Diamox therapy. Continue Xopenex q8H. Cautious use of BZDPs ( Xanax) for anxiolysis. 6. Keep anticoagulated at current level, HGB stable and no sign of any GIB. 7. Invasive MV support remains on reserve if she decompensates further. There are no Advance Directives noted at this time, otherwise Full Code Status as per family members (2 daughters, son-in-law) at this time. CCU Objective - Vital Signs / Intake & Output Vital Signs (Last 4 hours): Vital Signs Temp Pulse Pulse Resp BP Pulse Ox 05/23/17 16:00 97.4 F L 76 23 128/69 96 05/23/17 15:59 19 05/23/17 15:50 75 17 05/23/17 15:14 97.6 F 75 22 107/59 L 94 L 05/23/17 15:05 76 22 107/59 L 05/23/17 15:04 76 22 107/59 L 94 L 05/23/17 14:50 94 L 05/23/17 14:47 22 05/23/17 14:37 97.6 F 05/23/17 14:33 22 05/23/17 14:32 119/59 L Intake and Output (Last 8hrs): Intake & Output 05/23/17 05/23/17 05/23/17 06:59 14:59 22:59 Intake Total 0 Balance 0 Intake: IV 0 Oral 0 - Physical Exam Physical Exam Limitations: Positive for: Altered Mental Status Head: Positive for: Normocephalic Pupils: Positive for: PERRL Extroacular Muscles: Positive for: EOMI Conjunctiva: Positive for: Normal. Negative for: Icteric Pharnyx: Positive for: Normal, Other (loose dentures noted.) Neck: Positive for: Normal Range of Motion, JVD. Negative for: Bruit Respiratory/Chest: Positive for: Clear to Auscultation. Negative for: Accessory Muscle Use, Wheezes Cardiovascular: Positive for: Regular Rate and Rhythm (Paced), Murmurs (+2 apical systolic murmur), Peripheal Pulses Present. Negative for: Rub Abdomen: Positive for: Normal Bowel Sounds. Negative for: Tenderness, Distention Upper Extremity: Positive for: Edema Lower Extremity: Positive for: Edema. Negative for: CALF TENDERNESS, Cyanosis Neurological: Positive for: Motor Func Grossly Intact Skin: Positive for: Warm. Negative for: Rashes Psychiatric: Positive for: Lethargic - Medications Active Medications: Active Medications Generic Name Dose Route Start Last Admin Trade Name Freq PRN Reason Stop Dose Admin Milrinone Lactate/Dextrose 100 mls @ 3.266 mls/hr 05/23/17 16:15 Primacor 20mg/100ml D5w IV .Q24H SOLIS Protocol 0.15 MCG/KG/MIN Pantoprazole Sodium 40 mg 05/23/17 16:15 Protonix Inj IVP DAILY SOLIS - Patient Studies Lab Studies: Lab Studies 05/23/17 05/23/17 Range/Units 15:56 14:50 POC Glucose (mg/dL) 176 H (65-110) mg/dL Urine Color Yellow (YELLOW) Urine Clarity Cloudy (Clear) Urine pH 5.0 (5.0-8.0) Ur Specific Buhl 1.014 (1.003-1.030) Urine Protein 100 (NEGATIVE) mg/dL Urine Glucose (UA) Neg (Normal) mg/dL Urine Ketones Negative (NEGATIVE) mg/dL Urine Blood Small (NEGATIVE) Urine Nitrate Negative (NEGATIVE) Urine Bilirubin Negative (NEGATIVE) Urine Urobilinogen 0.2-1.0 (0.2-1.0) mg/dL Ur Leukocyte Esterase Trace (Negative) Denisse/uL Urine RBC (Auto) 12 H (0-3) /hpf Urine Microscopic WBC 17 H (0-5) /hpf Ur Squamous Epith Cells 6 H (0-5) /hpf Urine Bacteria Rare (<OCC) Hyaline Casts 3-5 H (0-2) /hpf Laboratory Results - last 24 hr 05/23/17 05/23/17 14:50 15:56 POC Glucose (mg/dL) 176 H Urine Color Yellow Urine Clarity Cloudy Urine pH 5.0 Ur Specific Buhl 1.014 Urine Protein 100 Urine Glucose (UA) Neg Urine Ketones Negative Urine Blood Small Urine Nitrate Negative Urine Bilirubin Negative Urine Urobilinogen 0.2-1.0 Ur Leukocyte Esterase Trace Urine RBC (Auto) 12 H Urine Microscopic WBC 17 H Ur Squamous Epith Cells 6 H Urine Bacteria Rare Hyaline Casts 3-5 H
[2017-05-23 18:14] LABS: ABG ALLEN TEST YES; ARTERIAL BLOOD GAS HCO3 34.8 mmol/L (21-28); ARTERIAL BLOOD GAS MODE HIGH FLOW LPM; ARTERIAL BLOOD GAS PH 7.39 (7.35-7.45); ARTERIAL BLOOD GAS PO2 51 mm/Hg (80-100)
[2017-05-23] MEDS ORDERED: Albuterol-Ipratrop 3 mg / 0.5 (3 ml) UD INH PRN (19:12)
[2017-05-24] MEDS: Levalbuterol 0.63 MG/3 ML Inhal Soln UD INH SCH ×4 (00:09→23:50)
[2017-05-24 04:51] LABS: BASO % 0.5 % (0.0-2.0); EOS % 0.5 % (0.0-4.0); HEMATOCRIT 33.6 % (34.0-47.0); LYMPH # 0.5 K/uL (1.0-4.3); LYMPH % 5.4 % (20.0-40.0); MEAN CELL VOLUME 104.1 fl (81.0-99.0); MEAN CORPUSCULAR HGB CONC 30.7 g/dL (33.0-37.0); MEAN PLATELET VOLUME 10.5 fl (7.2-11.7); MONO # 1.1 K/uL (0.0-0.8); MONO % 12.2 % (0.0-10.0); NEUT % 81.4 % (50.0-75.0); NRBC % 0.1 % (0.0-0.0); WHITE BLOOD COUNT 8.6 K/uL (4.8-10.8)
[2017-05-24 05:04] LABS: ALB/GLOB RATIO 1.1 (1.0-2.1); BILIRUBIN,TOTAL 0.6 mg/dl (0.2-1.3); CALCIUM 9.2 mg/dL (8.4-10.2); POTASSIUM 4.4 MMOL/L (3.6-5.0); TOTAL PROTEIN 7.1 G/DL (6.3-8.2)
[2017-05-24 05:27] LABS: PARTIAL THROMBOPLASTIN TIME 33.4 Seconds (25.6-37.1)
[2017-05-24 05:41] LABS: VENOUS BLOOD GAS BASE EXCESS 14.8 mmol/L (0.0-2.0); VENOUS BLOOD GAS PCO2 76 mmHg (40-60); VENOUS BLOOD PH 7.37 (7.32-7.43)
[2017-05-24 05:44] LABS: ABG ALLEN TEST YES; ARTERIAL BLOOD GAS HCO3 38.7 mmol/L (21-28); ARTERIAL BLOOD GAS MODE HIGH FLOW LPM; ARTERIAL BLOOD GAS PH 7.42 (7.35-7.45); ARTERIAL BLOOD GAS PO2 86 mm/Hg (80-100)
--- NOTE | 2017-05-24 09:23 | CP.CCUPN ---
CCU Subjective - Physician Review Events Since Last Encounter (Free Text): 05/24/17 09:21 Looking comfortable, alert and awake, "I'm hyngry ", no sob, has been on milrinon infusio and lasix Labs, meds , physicians notes and recommendations reviewed, d/w nurse CCU Objective - Vital Signs / Intake & Output Vital Signs (Last 4 hours): Vital Signs Temp Pulse Resp BP Pulse Ox 05/24/17 08:10 104/48 L 05/24/17 08:00 97.6 F 78 15 104/48 L 100 05/24/17 07:39 15 05/24/17 06:00 87 12 113/56 L 99 Intake and Output (Last 8hrs): Intake & Output 05/23/17 05/24/17 05/24/17 22:59 06:59 14:59 Intake Total 24 32 8 Output Total 200 Balance -176 32 8 Intake: IV 24 32 8 Oral 0 Output: Urine 200 Urethral (Mackey) 200 - Physical Exam Head: Positive for: Normocephalic Pupils: Positive for: PERRL Extroacular Muscles: Positive for: EOMI Conjunctiva: Positive for: Normal. Negative for: Icteric Pharnyx: Positive for: Normal, Other (loose dentures noted.) Neck: Positive for: Normal Range of Motion, JVD. Negative for: Bruit Respiratory/Chest: Positive for: Clear to Auscultation. Negative for: Accessory Muscle Use, Wheezes Cardiovascular: Positive for: Regular Rate and Rhythm (Paced), Murmurs (+2 apical systolic murmur), Peripheal Pulses Present. Negative for: Rub Abdomen: Positive for: Normal Bowel Sounds. Negative for: Tenderness, Distention Upper Extremity: Positive for: Edema Lower Extremity: Positive for: Edema. Negative for: CALF TENDERNESS, Cyanosis Neurological: Positive for: Motor Func Grossly Intact Skin: Positive for: Warm. Negative for: Rashes Psychiatric: Positive for: Lethargic - Medications Active Medications: Active Medications Generic Name Dose Route Start Last Admin Trade Name Freq PRN Reason Stop Dose Admin Albuterol/Ipratropium 3 ml 05/23/17 19:12 Duoneb 3 Mg/0.5 Mg (3 Ml) Ud INH RQ6 PRN Shortness of Breath Carvedilol 3.125 mg 05/23/17 21:00 05/23/17 21:44 Coreg PO Not Given Q12 SOLIS Furosemide 60 mg 05/23/17 21:00 05/24/17 08:10 Lasix IV 60 mg Q12 SOLIS Administration Milrinone Lactate/Dextrose 100 mls @ 4.355 mls/hr 05/23/17 16:39 Primacor 20mg/100ml D5w IV .[id number] SOLIS Protocol 0.2 MCG/KG/MIN Levalbuterol HCl 0.63 mg 05/23/17 21:00 05/24/17 07:38 Xopenex INH 0.63 mg RQ8 SOLIS Administration Pantoprazole Sodium 40 mg 05/23/17 16:15 05/24/17 08:10 Protonix Inj IVP 40 mg DAILY SOLIS Administration - Patient Studies Lab Studies: Lab Studies 05/24/17 05/24/17 05/24/17 Range/Units 06:14 05:37 05:35 WBC (4.8-10.8) K/uL RBC (3.80-5.20) Mil/uL Hgb (12.0-16.0) g/dL Hct (34.0-47.0) % MCV (81.0-99.0) fl MCH (27.0-31.0) pg MCHC (33.0-37.0) g/dL RDW (11.5-14.5) % Plt Count (130-400) K/uL MPV (7.2-11.7) fl Neut % (Auto) (50.0-75.0) % Lymph % (Auto) (20.0-40.0) % [place] % (Auto) (0.0-10.0) % Eos % (Auto) (0.0-4.0) % Baso % (Auto) (0.0-2.0) % Neut # (1.8-7.0) K/uL Lymph # (1.0-4.3) K/uL [place] # (0.0-0.8) K/uL Eos # (0.0-0.7) K/uL Baso # (0.0-0.2) K/uL PT (9.8-13.1) Seconds INR (0.9-1.2) APTT (25.6-37.1) Seconds pCO2 71 H* (35-45) mm/Hg pO2 86 39 (80-100) mm/Hg HCO3 38.7 H (21-28) mmol/L ABG pH 7.42 (7.35-7.45) ABG Total CO2 48.3 H (22-28) mmol/L ABG O2 Saturation 96.4 (95-98) % ABG Base Excess 17.7 H (-2.0-3.0) mmol/L Quoc Test Yes ABG Potassium 4.1 (3.6-5.2) mmol/L VBG pH 7.37 (7.32-7.43) VBG pCO2 76 H* (40-60) mmHg VBG HCO3 35.8 mmol/L VBG O2 Sat (Calc) 72.6 H (40-65) % VBG Base Excess 14.8 H (0.0-2.0) mmol/L A-a O2 Difference 110.0 mm/Hg Sodium 142.0 (132-148) mmol/L Chloride 102.0 (98-107) mmol/L Glucose 172 H (65-105) mg/dL Lactate 1.0 (0.7-2.1) mmol/L Vent Mode High flow lpm FiO2 40.0 % Blood Gas Comments 6075 Crit Value Called To Faye concepcion rn Crit Value Called By 6075 Crit Value Read Back Y Y Blood Gas Notified Time 544 540 Potassium (3.6-5.0) MMOL/L Carbon Dioxide (22-30) mmol/L Anion Gap (10-20) BUN (7-17) mg/dl Creatinine (0.7-1.2) mg/dL Est GFR ( Amer) Est GFR (Non-Af Amer) POC Glucose (mg/dL) 185 H (65-110) mg/dL Random Glucose (65-105) mg/dL Calcium (8.4-10.2) mg/dL Total Bilirubin (0.2-1.3) mg/dl AST (14-36) U/L ALT (9-52) U/L Alkaline Phosphatase (38-126) U/L Troponin I (0.00-0.120) ng/mL Total Protein (6.3-8.2) G/DL Albumin (3.5-5.0) g/dL Globulin (2.2-3.9) gm/dL Albumin/Globulin Ratio (1.0-2.1) Arterial Blood Potassium 4.1 (3.6-5.2) mmol/L Urine Color (YELLOW) Urine Clarity (Clear) Urine pH (5.0-8.0) Ur Specific Yoder (1.003-1.030) Urine Protein (NEGATIVE) mg/dL Urine Glucose (UA) (Normal) mg/dL Urine Ketones (NEGATIVE) mg/dL Urine Blood (NEGATIVE) Urine Nitrate (NEGATIVE) Urine Bilirubin (NEGATIVE) Urine Urobilinogen (0.2-1.0) mg/dL Ur Leukocyte Esterase (Negative) Denisse/uL Urine RBC (Auto) (0-3) /hpf Urine Microscopic WBC (0-5) /hpf Ur Squamous Epith Cells (0-5) /hpf Urine Bacteria (<OCC) Hyaline Casts (0-2) /hpf 05/24/17 05/24/17 05/24/17 Range/Units 04:10 04:10 04:10 WBC 8.6 (4.8-10.8) K/uL RBC 3.22 L (3.80-5.20) Mil/uL Hgb 10.3 L (12.0-16.0) g/dL Hct 33.6 L (34.0-47.0) % MCV 104.1 H (81.0-99.0) fl MCH 32.0 H (27.0-31.0) pg MCHC 30.7 L (33.0-37.0) g/dL RDW 19.0 H (11.5-14.5) % Plt Count 147 (130-400) K/uL MPV 10.5 (7.2-11.7) fl Neut % (Auto) 81.4 H (50.0-75.0) % Lymph % (Auto) 5.4 L (20.0-40.0) % [place] % (Auto) 12.2 H (0.0-10.0) % Eos % (Auto) 0.5 (0.0-4.0) % Baso % (Auto) 0.5 (0.0-2.0) % Neut # 7.0 (1.8-7.0) K/uL Lymph # 0.5 L (1.0-4.3) K/uL [place] # 1.1 H (0.0-0.8) K/uL Eos # 0.0 (0.0-0.7) K/uL Baso # 0.0 (0.0-0.2) K/uL PT 15.2 H D (9.8-13.1) Seconds INR 1.5 H D (0.9-1.2) APTT 33.4 (25.6-37.1) Seconds pCO2 (35-45) mm/Hg pO2 (80-100) mm/Hg HCO3 (21-28) mmol/L ABG pH (7.35-7.45) ABG Total CO2 (22-28) mmol/L ABG O2 Saturation (95-98) % ABG Base Excess (-2.0-3.0) mmol/L Quoc Test ABG Potassium (3.6-5.2) mmol/L VBG pH (7.32-7.43) VBG pCO2 (40-60) mmHg VBG HCO3 mmol/L VBG O2 Sat (Calc) (40-65) % VBG Base Excess (0.0-2.0) mmol/L A-a O2 Difference mm/Hg Sodium 143 (132-148) mmol/L Chloride 98 (98-107) mmol/L Glucose (65-105) mg/dL Lactate (0.7-2.1) mmol/L Vent Mode FiO2 % Blood Gas Comments Crit Value Called To Crit Value Called By Crit Value Read Back Blood Gas Notified Time Potassium 4.4 (3.6-5.0) MMOL/L Carbon Dioxide 36 H (22-30) mmol/L Anion Gap 13 (10-20) BUN 40 H (7-17) mg/dl Creatinine 1.2 (0.7-1.2) mg/dL Est GFR ( Amer) 51 Est GFR (Non-Af Amer) 42 POC Glucose (mg/dL) (65-110) mg/dL Random Glucose 161 H (65-105) mg/dL Calcium 9.2 (8.4-10.2) mg/dL Total Bilirubin 0.6 (0.2-1.3) mg/dl AST 27 (14-36) U/L ALT 32 (9-52) U/L Alkaline Phosphatase 103 (38-126) U/L Troponin I (0.00-0.120) ng/mL Total Protein 7.1 (6.3-8.2) G/DL Albumin 3.7 (3.5-5.0) g/dL Globulin 3.4 (2.2-3.9) gm/dL Albumin/Globulin Ratio 1.1 (1.0-2.1) Arterial Blood Potassium (3.6-5.2) mmol/L Urine Color (YELLOW) Urine Clarity (Clear) Urine pH (5.0-8.0) Ur Specific Yoder (1.003-1.030) Urine Protein (NEGATIVE) mg/dL Urine Glucose (UA) (Normal) mg/dL Urine Ketones (NEGATIVE) mg/dL Urine Blood (NEGATIVE) Urine Nitrate (NEGATIVE) Urine Bilirubin (NEGATIVE) Urine Urobilinogen (0.2-1.0) mg/dL Ur Leukocyte Esterase (Negative) Denisse/uL Urine RBC (Auto) (0-3) /hpf Urine Microscopic WBC (0-5) /hpf Ur Squamous Epith Cells (0-5) /hpf Urine Bacteria (<OCC) Hyaline Casts (0-2) /hpf 05/23/17 05/23/17 05/23/17 Range/Units 21:37 18:18 18:05 WBC (4.8-10.8) K/uL RBC (3.80-5.20) Mil/uL Hgb (12.0-16.0) g/dL Hct (34.0-47.0) % MCV (81.0-99.0) fl MCH (27.0-31.0) pg MCHC (33.0-37.0) g/dL RDW (11.5-14.5) % Plt Count (130-400) K/uL MPV (7.2-11.7) fl Neut % (Auto) (50.0-75.0) % Lymph % (Auto) (20.0-40.0) % [place] % (Auto) (0.0-10.0) % Eos % (Auto) (0.0-4.0) % Baso % (Auto) (0.0-2.0) % Neut # (1.8-7.0) K/uL Lymph # (1.0-4.3) K/uL [place] # (0.0-0.8) K/uL Eos # (0.0-0.7) K/uL Baso # (0.0-0.2) K/uL PT (9.8-13.1) Seconds INR (0.9-1.2) APTT (25.6-37.1) Seconds pCO2 68 H (35-45) mm/Hg pO2 51 L (80-100) mm/Hg HCO3 34.8 H (21-28) mmol/L ABG pH 7.39 (7.35-7.45) ABG Total CO2 43.3 H (22-28) mmol/L ABG O2 Saturation 89.7 L (95-98) % ABG Base Excess 13.1 H (-2.0-3.0) mmol/L Quoc Test Yes ABG Potassium 4.4 (3.6-5.2) mmol/L VBG pH (7.32-7.43) VBG pCO2 (40-60) mmHg VBG HCO3 mmol/L VBG O2 Sat (Calc) (40-65) % VBG Base Excess (0.0-2.0) mmol/L A-a O2 Difference 114.0 mm/Hg Sodium 141.0 (132-148) mmol/L Chloride 104.0 (98-107) mmol/L Glucose 167 H (65-105) mg/dL Lactate 0.8 (0.7-2.1) mmol/L Vent Mode High flow lpm FiO2 35.0 % Blood Gas Comments Crit Value Called To Crit Value Called By Crit Value Read Back Blood Gas Notified Time Potassium (3.6-5.0) MMOL/L Carbon Dioxide (22-30) mmol/L Anion Gap (10-20) BUN (7-17) mg/dl Creatinine (0.7-1.2) mg/dL Est GFR ( Amer) Est GFR (Non-Af Amer) POC Glucose (mg/dL) 161 H (65-110) mg/dL Random Glucose (65-105) mg/dL Calcium (8.4-10.2) mg/dL Total Bilirubin (0.2-1.3) mg/dl AST (14-36) U/L ALT (9-52) U/L Alkaline Phosphatase (38-126) U/L Troponin I 0.0290 (0.00-0.120) ng/mL Total Protein (6.3-8.2) G/DL Albumin (3.5-5.0) g/dL Globulin (2.2-3.9) gm/dL Albumin/Globulin Ratio (1.0-2.1) Arterial Blood Potassium 4.4 (3.6-5.2) mmol/L Urine Color (YELLOW) Urine Clarity (Clear) Urine pH (5.0-8.0) Ur Specific Yoder (1.003-1.030) Urine Protein (NEGATIVE) mg/dL Urine Glucose (UA) (Normal) mg/dL Urine Ketones (NEGATIVE) mg/dL Urine Blood (NEGATIVE) Urine Nitrate (NEGATIVE) Urine Bilirubin (NEGATIVE) Urine Urobilinogen (0.2-1.0) mg/dL Ur Leukocyte Esterase (Negative) Denisse/uL Urine RBC (Auto) (0-3) /hpf Urine Microscopic WBC (0-5) /hpf Ur Squamous Epith Cells (0-5) /hpf Urine Bacteria (<OCC) Hyaline Casts (0-2) /hpf 05/23/17 05/23/17 Range/Units 15:56 14:50 WBC (4.8-10.8) K/uL RBC (3.80-5.20) Mil/uL Hgb (12.0-16.0) g/dL Hct (34.0-47.0) % MCV (81.0-99.0) fl MCH (27.0-31.0) pg MCHC (33.0-37.0) g/dL RDW (11.5-14.5) % Plt Count (130-400) K/uL MPV (7.2-11.7) fl Neut % (Auto) (50.0-75.0) % Lymph % (Auto) (20.0-40.0) % [place] % (Auto) (0.0-10.0) % Eos % (Auto) (0.0-4.0) % Baso % (Auto) (0.0-2.0) % Neut # (1.8-7.0) K/uL Lymph # (1.0-4.3) K/uL [place] # (0.0-0.8) K/uL Eos # (0.0-0.7) K/uL Baso # (0.0-0.2) K/uL PT (9.8-13.1) Seconds INR (0.9-1.2) APTT (25.6-37.1) Seconds pCO2 (35-45) mm/Hg pO2 (80-100) mm/Hg HCO3 (21-28) mmol/L ABG pH (7.35-7.45) ABG Total CO2 (22-28) mmol/L ABG O2 Saturation (95-98) % ABG Base Excess (-2.0-3.0) mmol/L Quoc Test ABG Potassium (3.6-5.2) mmol/L VBG pH (7.32-7.43) VBG pCO2 (40-60) mmHg VBG HCO3 mmol/L VBG O2 Sat (Calc) (40-65) % VBG Base Excess (0.0-2.0) mmol/L A-a O2 Difference mm/Hg Sodium (132-148) mmol/L Chloride (98-107) mmol/L Glucose (65-105) mg/dL Lactate (0.7-2.1) mmol/L Vent Mode FiO2 % Blood Gas Comments Crit Value Called To Crit Value Called By Crit Value Read Back Blood Gas Notified Time Potassium (3.6-5.0) MMOL/L Carbon Dioxide (22-30) mmol/L Anion Gap (10-20) BUN (7-17) mg/dl Creatinine (0.7-1.2) mg/dL Est GFR ( Amer) Est GFR (Non-Af Amer) POC Glucose (mg/dL) 176 H (65-110) mg/dL Random Glucose (65-105) mg/dL Calcium (8.4-10.2) mg/dL Total Bilirubin (0.2-1.3) mg/dl AST (14-36) U/L ALT (9-52) U/L Alkaline Phosphatase (38-126) U/L Troponin I (0.00-0.120) ng/mL Total Protein (6.3-8.2) G/DL Albumin (3.5-5.0) g/dL Globulin (2.2-3.9) gm/dL Albumin/Globulin Ratio (1.0-2.1) Arterial Blood Potassium (3.6-5.2) mmol/L Urine Color Yellow (YELLOW) Urine Clarity Cloudy (Clear) Urine pH 5.0 (5.0-8.0) Ur Specific Yoder 1.014 (1.003-1.030) Urine Protein 100 (NEGATIVE) mg/dL Urine Glucose (UA) Neg (Normal) mg/dL Urine Ketones Negative (NEGATIVE) mg/dL Urine Blood Small (NEGATIVE) Urine Nitrate Negative (NEGATIVE) Urine Bilirubin Negative (NEGATIVE) Urine Urobilinogen 0.2-1.0 (0.2-1.0) mg/dL Ur Leukocyte Esterase Trace (Negative) Denisse/uL Urine RBC (Auto) 12 H (0-3) /hpf Urine Microscopic WBC 17 H (0-5) /hpf Ur Squamous Epith Cells 6 H (0-5) /hpf Urine Bacteria Rare (<OCC) Hyaline Casts 3-5 H (0-2) /hpf Laboratory Results - last 24 hr 05/23/17 05/23/17 05/23/17 14:50 15:56 18:05 WBC RBC Hgb Hct MCV MCH MCHC RDW Plt Count MPV Neut % (Auto) Lymph % (Auto) [place] % (Auto) Eos % (Auto) Baso % (Auto) Neut # Lymph # [place] # Eos # Baso # PT INR APTT pCO2 68 H pO2 51 L HCO3 34.8 H ABG pH 7.39 ABG Total CO2 43.3 H ABG O2 Saturation 89.7 L ABG Base Excess 13.1 H Qu[place] Test Yes ABG Potassium 4.4 VBG pH VBG pCO2 VBG HCO3 VBG O2 Sat (Calc) VBG Base Excess A-a O2 Difference 114.0 Sodium 141.0 Chloride 104.0 Glucose 167 H Lactate 0.8 Vent Mode High flow lpm FiO2 35.0 Blood Gas Comments Crit Value Called To Crit Value Called By Crit Value Read Back Blood Gas Notified Time Potassium Carbon Dioxide Anion Gap BUN Creatinine Est GFR ( Amer) Est GFR (Non-Af Amer) POC Glucose (mg/dL) 176 H Random Glucose Calcium Total Bilirubin AST ALT Alkaline Phosphatase Troponin I Total Protein Albumin Globulin Albumin/Globulin Ratio Arterial Blood Potassium 4.4 Urine Color Yellow Urine Clarity Cloudy Urine pH 5.0 Ur Specific Yoder 1.014 Urine Protein 100 Urine Glucose (UA) Neg Urine Ketones Negative Urine Blood Small Urine Nitrate Negative Urine Bilirubin Negative Urine Urobilinogen 0.2-1.0 Ur Leukocyte Esterase Trace Urine RBC (Auto) 12 H Urine Microscopic WBC 17 H Ur Squamous Epith Cells 6 H Urine Bacteria Rare Hyaline Casts 3-5 H 05/23/17 05/23/17 05/24/17 18:18 21:37 04:10 WBC 8.6 RBC 3.22 L Hgb 10.3 L Hct 33.6 L MCV 104.1 H MCH 32.0 H MCHC 30.7 L RDW 19.0 H Plt Count 147 MPV 10.5 Neut % (Auto) 81.4 H Lymph % (Auto) 5.4 L [place] % (Auto) 12.2 H Eos % (Auto) 0.5 Baso % (Auto) 0.5 Neut # 7.0 Lymph # 0.5 L [place] # 1.1 H Eos # 0.0 Baso # 0.0 PT INR APTT pCO2 pO2 HCO3 ABG pH ABG Total CO2 ABG O2 Saturation ABG Base Excess Quoc Test ABG Potassium VBG pH VBG pCO2 VBG HCO3 VBG O2 Sat (Calc) VBG Base Excess A-a O2 Difference Sodium Chloride Glucose Lactate Vent Mode FiO2 Blood Gas Comments Crit Value Called To Crit Value Called By Crit Value Read Back Blood Gas Notified Time Potassium Carbon Dioxide Anion Gap BUN Creatinine Est GFR ( Amer) Est GFR (Non-Af Amer) POC Glucose (mg/dL) 161 H Random Glucose Calcium Total Bilirubin AST ALT Alkaline Phosphatase Troponin I 0.0290 Total Protein Albumin Globulin Albumin/Globulin Ratio Arterial Blood Potassium Urine Color Urine Clarity Urine pH Ur Specific Yoder Urine Protein Urine Glucose (UA) Urine Ketones Urine Blood Urine Nitrate Urine Bilirubin Urine Urobilinogen Ur Leukocyte Esterase Urine RBC (Auto) Urine Microscopic WBC Ur Squamous Epith Cells Urine Bacteria Hyaline Casts 05/24/17 05/24/17 05/24/17 04:10 04:10 05:35 WBC RBC Hgb Hct MCV MCH MCHC RDW Plt Count MPV Neut % (Auto) Lymph % (Auto) [place] % (Auto) Eos % (Auto) Baso % (Auto) Neut # Lymph # [place] # Eos # Baso # PT 15.2 H D INR 1.5 H D APTT 33.4 pCO2 pO2 39 HCO3 ABG pH ABG Total CO2 ABG O2 Saturation ABG Base Excess Quoc Test ABG Potassium VBG pH 7.37 VBG pCO2 76 H* VBG HCO3 35.8 VBG O2 Sat (Calc) 72.6 H VBG Base Excess 14.8 H A-a O2 Difference Sodium 143 Chloride 98 Glucose Lactate Vent Mode FiO2 Blood Gas Comments 6075 Crit Value Called To Faye concepcion rn Crit Value Called By Crit Value Read Back Y Blood Gas Notified Time 540 Potassium 4.4 Carbon Dioxide 36 H Anion Gap 13 BUN 40 H Creatinine 1.2 Est GFR ( Amer) 51 Est GFR (Non-Af Amer) 42 POC Glucose (mg/dL) Random Glucose 161 H Calcium 9.2 Total Bilirubin 0.6 AST 27 ALT 32 Alkaline Phosphatase 103 Troponin I Total Protein 7.1 Albumin 3.7 Globulin 3.4 Albumin/Globulin Ratio 1.1 Arterial Blood Potassium Urine Color Urine Clarity Urine pH Ur Specific Yoder Urine Protein Urine Glucose (UA) Urine Ketones Urine Blood Urine Nitrate Urine Bilirubin Urine Urobilinogen Ur Leukocyte Esterase Urine RBC (Auto) Urine Microscopic WBC Ur Squamous Epith Cells Urine Bacteria Hyaline Casts 05/24/17 05/24/17 05:37 06:14 WBC RBC Hgb Hct MCV MCH MCHC RDW Plt Count MPV Neut % (Auto) Lymph % (Auto) [place] % (Auto) Eos % (Auto) Baso % (Auto) Neut # Lymph # [place] # Eos # Baso # PT INR APTT pCO2 71 H* pO2 86 HCO3 38.7 H ABG pH 7.42 ABG Total CO2 48.3 H ABG O2 Saturation 96.4 ABG Base Excess 17.7 H [place] Test Yes ABG Potassium 4.1 VBG pH VBG pCO2 VBG HCO3 VBG O2 Sat (Calc) VBG Base Excess A-a O2 Difference 110.0 Sodium 142.0 Chloride 102.0 Glucose 172 H Lactate 1.0 Vent Mode High flow lpm FiO2 40.0 Blood Gas Comments Crit Value Called To Faye concepcion rn Crit Value Called By 6075 Crit Value Read Back Y Blood Gas Notified Time 544 Potassium Carbon Dioxide Anion Gap BUN Creatinine Est GFR ( Amer) Est GFR (Non-Af Amer) POC Glucose (mg/dL) 185 H Random Glucose Calcium Total Bilirubin AST ALT Alkaline Phosphatase Troponin I Total Protein Albumin Globulin Albumin/Globulin Ratio Arterial Blood Potassium 4.1 Urine Color Urine Clarity Urine pH Ur Specific Yoder Urine Protein Urine Glucose (UA) Urine Ketones Urine Blood Urine Nitrate Urine Bilirubin Urine Urobilinogen Ur Leukocyte Esterase Urine RBC (Auto) Urine Microscopic WBC Ur Squamous Epith Cells Urine Bacteria Hyaline Casts Fingerstick Blood Sugar Results: 185 Review of Systems - Constitutional Constitutional: Weakness - EENT Eyes: UNREMARKABLE Ears: UNREMARKABLE Nose/Mouth/Throat: UNREMARKABLE - Cardiovascular Cardiovascular: Dyspnea - Respiratory Respiratory: Dyspnea - Gastrointestinal Gastrointestinal: UNREMARKABLE Critical Care Progress Note - Ventilator Checklist DVT Prophylaxis: Yes - Nutrition Nutrition: Nutrition Category Date Time Status Dysphagia/Modified Consistency Diet [DIET] Diets 05/23/17 Dinner Active Assessment/Plan - Assessment and Plan (Free Text) Assessment: Resp failure: hypercapnic and hypoxic, due to acute on chronic decompensated HF Hypoxia and hypercapnea Resp acidosis, chronic and metabolic alkalosis Pulm congestion , better A fib : rate controlled Anemia: mild, stab;e Plan: On Milrinon infusion On lasxi 60 mg Iv daily On HFNC 35 L/M, Fio 40% Bronchodilators Continue other meds, reviewed.
--- NOTE | 2017-05-24 09:24 | CP.PCM.PN ---
Subjective - Date & Time of Evaluation Date of Evaluation: 05/24/17 Time of Evaluation: 08:00 - Subjective Subjective: 87 y/o w/f transferred from TCU 2* Respiratory distress Acute Hypercapneic Resp Failure 2 Decompensated L-CHF / Cardiomyopathy Chronic A fib on AC Chronic Disease Anemia / Thrombocytopenia Dementia / Delirium DM II LV dysfunction w/ EF 10% congestive cardiac failure which is left ventricular chronic and systolic ( LVEF was approximately 10%) with severe mitral regurgitation. PMH: Chronic A fib-on AC, CABG, AICD, Pericardiectomy in 90s, HTN, UGIB, DM II, Dementia, COPD, chronic disease anemia. Objective - Vital Signs/Intake and Output Vital Signs (last 24 hours): Temp Pulse Resp BP Pulse Ox 97.6 F 78 15 104/48 L 100 05/24/17 08:00 05/24/17 08:00 05/24/17 08:00 05/24/17 08:10 05/24/17 08:00 Intake and Output: 05/24/17 05/24/17 06:59 18:59 Intake Total 48 8 Balance 48 8 - Medications Medications: Current Medications Albuterol/Ipratropium (Duoneb 3 Mg/0.5 Mg (3 Ml) Ud) 3 ml INH RQ6 PRN PRN Reason: Shortness of Breath Carvedilol (Coreg) 3.125 mg PO Q12 SOLIS Last Admin: 05/23/17 21:44 Dose: Not Given Furosemide (Lasix) 60 mg IV Q12 SOLIS Last Admin: 05/24/17 08:10 Dose: 60 mg Milrinone Lactate/Dextrose (Primacor 20mg/100ml D5w) 100 mls @ 4.355 mls/hr IV .[id number] SOLIS; 0.2 MCG/KG/MIN PRN Reason: Protocol Levalbuterol HCl (Xopenex) 0.63 mg INH RQ8 SOLIS Last Admin: 05/24/17 07:38 Dose: 0.63 mg Pantoprazole Sodium (Protonix Inj) 40 mg IVP DAILY SOLIS Last Admin: 05/24/17 08:10 Dose: 40 mg - Labs Labs: 05/24/17 04:10 05/24/17 04:10 PT 15.2 Seconds (9.8-13.1) H D 05/24/17 04:10 INR 1.5 (0.9-1.2) H D 05/24/17 04:10 APTT 33.4 Seconds (25.6-37.1) 05/24/17 04:10 Assessment and Plan (1) CHF (congestive heart failure) Status: Acute (2) Hypercarbia Status: Acute (3) Dyspnea Status: Acute (4) Atrial fibrillation with controlled ventricular response Status: Chronic (5) COPD (chronic obstructive pulmonary disease) Status: Chronic (6) Cardiomyopathy Status: Chronic (7) Pulmonary hypertension Status: Chronic
--- NOTE | 2017-05-24 12:47 | CP.PCM.CON ---
History of Present Illness - History of Present Illness History of Present Illness: This 87-year-old female who is well known to me from prior hospitalizations. She suffers from chronic/intractable low EF systolic heart failure. Suffers from severe ischemic cardiomyopathy and has comorbid illness of COPD and pulmonary hypertension complicating her management. She continues to remain short of breath, although this morning she does appear less dyspneic, and she also has a chronic congested cough, but is unable to expectorate. She has had chronic CO2 retention due to her compromised respiratory status as well as hypoxia. She has been complaining of frequent headaches which may be a reflection of her hypercarbia. She is a former cigarette smoker discontinued habit many years ago. She has had recurring pleural effusions and underwent thoracentesis on a recent hospitalization. Her current chest x-ray shows no significant effusion although the right costophrenic angle is blunted. Past Patient History - Infectious Disease Hx of Infectious Diseases: None - Tetanus Immunizations Tetanus Immunization: Unknown - Past Medical History & Family History Past Medical History?: Yes Past Family History: Reviewed and not pertinent - Past Social History Smoking Status: Former Smoker Chewing Tobacco Use: No Cigar Use: No Alcohol: None Drugs: Denies Home Situation {Lives}: With Family Domestic Violence: Negative - CARDIAC Hx Cardiac Disorders: Yes Hx Atrial Fibrillation: Yes Hx Congestive Heart Failure: Yes Hx Heart Attack: Yes Hx Hypotension: Yes Hx Internal Defibrillator: Yes Hx Peripheral Edema: Yes Other/Comment: Pericardiectomy - PULMONARY Hx Respiratory Disorders: Yes Hx Chronic Obstructive Pulmonary Disease (COPD): Yes Other/Comment: Pleural effusion. Pulmonary hypertension. - NEUROLOGICAL Hx Neurological Disorder: Yes Hx Dementia: Yes Hx Migraine: Yes (Remote past) - HEENT Hx Cataracts: Yes Hx Glaucoma: Yes Hx Macular Degeneration: Yes - RENAL Hx Chronic Kidney Disease: No - ENDOCRINE/METABOLIC Hx Diabetes Mellitus Type 2: Yes - HEMATOLOGICAL/ONCOLOGICAL Hx Anemia: Yes Hx Human Immunodeficiency Virus (HIV): No - INTEGUMENTARY Hx Dermatological Problems: No - MUSCULOSKELETAL/RHEUMATOLOGICAL Hx Falls: No Hx Unsteady Gait: Yes - GASTROINTESTINAL Hx Gastritis: Yes Other/Comment: GI bleed while on warfarin, site undetermined. - GENITOURINARY/GYNECOLOGICAL Hx Incontinence: Yes Hx Urinary Tract Infection: Yes (With sepsis) - PSYCHIATRIC Hx Anxiety: Yes Hx Substance Use: No - SURGICAL HISTORY Hx Appendectomy: No Hx Coronary Artery Bypass Graft: Yes - ANESTHESIA Hx Anesthesia: Yes Hx Anesthesia Reactions: No Hx Malignant Hyperthermia: No Meds Allergies/Adverse Reactions: Allergies Allergy/AdvReac Type Severity Reaction Status Date / Time Sulfa (Sulfonamide Allergy ITCHING Verified 05/23/17 14:24 Antibiotics) preservatives Allergy Unknown SWELLING Uncoded 05/23/17 14:24 - Medications Medications: Current Medications Acetaminophen (Tylenol 325mg Tab) 325 mg PO Q6H PRN PRN Reason: Headache Albuterol/Ipratropium (Duoneb 3 Mg/0.5 Mg (3 Ml) Ud) 3 ml INH RQ6 PRN PRN Reason: Shortness of Breath Allopurinol (Zyloprim) 100 mg PO DAILY COUNT [facility]CLUDES [facility] Benzonatate (Tessalon Perles) 200 mg PO TID PRN PRN Reason: Cough Carvedilol (Coreg) 3.125 mg PO Q12 COUNT [facility]CLUDES [facility] Last Admin: 05/23/17 21:44 Dose: Not Given Ferrous Sulfate (Feosol) 325 mg PO BID COUNT INCLUDES [facility] Furosemide (Lasix) 60 mg IV Q12 COUNT [facility]CLUDES [facility] Last Admin: 05/24/17 08:10 Dose: 60 mg Home Med (Cyclosporine [Restasis]) 1 drop BOTHEYES BID COUNT INCLUDES [facility] Home Med (Dorzolamide 2%/Timolol 0.5% [Cosopt 2%-0.5% Opht]) 1 drop EACHEYE BID COUNT INCLUDES [facility] Home Med (Multivit-Min/Fa/Lycopen/Lutein [Centrum Silver Tablet]) 1 tab PO DAILY COUNT INCLUDES [facility] Home Med (Tafluprost/Pf [Zioptan 0.0015% Eye Drops]) 1 drop EACHEYE HS COUNT INCLUDES [facility] Hydrocortisone (Anusol-Hc) 1 applic ND BID COUNT INCLUDES [facility] Milrinone Lactate/Dextrose (Primacor 20mg/100ml D5w) 100 mls @ 4.355 mls/hr IV .[id number] COUNT INCLUDES [facility]; 0.2 MCG/KG/MIN PRN Reason: Protocol Levalbuterol HCl (Xopenex) 0.63 mg INH RQ8 COUNT [facility]CLUDES [facility] Last Admin: 05/24/17 07:38 Dose: 0.63 mg Pantoprazole Sodium (Protonix Inj) 40 mg IVP DAILY COUNT [facility]CLUDES [facility] Last Admin: 05/24/17 08:10 Dose: 40 mg Saccharomyces Boulardii (Florastor) 250 mg PO BID COUNT [facility]CLUDES [facility] Sitagliptin Phosphate (Januvia) 50 mg PO DAILY [facility] Physical Exam - Additional Findings Additional findings: Elderly female who is awake and alert and cooperative with the examination. She appears chronically ill. His dependent edema only. No cyanosis. No palpable lymphadenopathy. Pharynx is pink and mucous membranes are moist. Conjunctivae are pink and there is no scleral icterus. Neck is supple and trachea is midline. IJ catheter is inserted on the left. No dullness on percussion of the anterior chest wall. No subcutaneous emphysema. Breath sounds are diminished bilaterally. Few medium rales are heard posteriorly in the lower lobes bilaterally. No audible wheezing or bronchial breathing. Sonorous rhonchi are present in the dependent areas of both lungs. Heart sounds are distant, rhythm is regular, 2+ apical systolic murmur. Abdomen is soft and nontender and bowel sounds are well heard. Results - Vital Signs Recent Vital Signs: Last Vital Signs Temp 97 F L 05/24/17 12:00 Pulse 76 05/24/17 12:00 Resp 20 05/24/17 12:00 BP 130/74 05/24/17 12:00 Pulse Ox 100 05/24/17 12:00 - Labs Result Diagrams: 05/24/17 04:10 05/24/17 04:10 Labs: Laboratory Results - last 24 hr 05/23/17 05/23/17 05/23/17 14:50 15:56 18:05 WBC RBC Hgb Hct MCV MCH MCHC RDW Plt Count MPV Neut % (Auto) Lymph % (Auto) [place] % (Auto) Eos % (Auto) Baso % (Auto) Neut # Lymph # [place] # Eos # Baso # PT INR APTT pCO2 68 H pO2 51 L HCO3 34.8 H ABG pH 7.39 ABG Total CO2 43.3 H ABG O2 Saturation 89.7 L ABG Base Excess 13.1 H [place] Test Yes ABG Potassium 4.4 VBG pH VBG pCO2 VBG HCO3 VBG O2 Sat (Calc) VBG Base Excess A-a O2 Difference 114.0 Sodium 141.0 Chloride 104.0 Glucose 167 H Lactate 0.8 Vent Mode High flow lpm FiO2 35.0 Blood Gas Comments Crit Value Called To Crit Value Called By Crit Value Read Back Blood Gas Notified Time Potassium Carbon Dioxide Anion Gap BUN Creatinine Est GFR ( Amer) Est GFR (Non-Af Amer) POC Glucose (mg/dL) 176 H Random Glucose Calcium Total Bilirubin AST ALT Alkaline Phosphatase Troponin I Total Protein Albumin Globulin Albumin/Globulin Ratio Arterial Blood Potassium 4.4 Urine Color Yellow Urine Clarity Cloudy Urine pH 5.0 Ur Specific [place] 1.014 Urine Protein 100 Urine Glucose (UA) Neg Urine Ketones Negative Urine Blood Small Urine Nitrate Negative Urine Bilirubin Negative Urine Urobilinogen 0.2-1.0 Ur Leukocyte Esterase Trace Urine RBC (Auto) 12 H Urine Microscopic WBC 17 H Ur Squamous Epith Cells 6 H Urine Bacteria Rare Hyaline Casts 3-5 H 05/23/17 05/23/17 05/24/17 18:18 21:37 04:10 WBC 8.6 RBC 3.22 L Hgb 10.3 L Hct 33.6 L MCV 104.1 H MCH 32.0 H MCHC 30.7 L RDW 19.0 H Plt Count 147 MPV 10.5 Neut % (Auto) 81.4 H Lymph % (Auto) 5.4 L [place] % (Auto) 12.2 H Eos % (Auto) 0.5 Baso % (Auto) 0.5 Neut # 7.0 Lymph # 0.5 L [place] # 1.1 H Eos # 0.0 Baso # 0.0 PT INR APTT pCO2 pO2 HCO3 ABG pH ABG Total CO2 ABG O2 Saturation ABG Base Excess [place] Test ABG Potassium VBG pH VBG pCO2 VBG HCO3 VBG O2 Sat (Calc) VBG Base Excess A-a O2 Difference Sodium Chloride Glucose Lactate Vent Mode FiO2 Blood Gas Comments Crit Value Called To Crit Value Called By Crit Value Read Back Blood Gas Notified Time Potassium Carbon Dioxide Anion Gap BUN Creatinine Est GFR ( Amer) Est GFR (Non-Af Amer) POC Glucose (mg/dL) 161 H Random Glucose Calcium Total Bilirubin AST ALT Alkaline Phosphatase Troponin I 0.0290 Total Protein Albumin Globulin Albumin/Globulin Ratio Arterial Blood Potassium Urine Color Urine Clarity Urine pH Ur Specific [place] Urine Protein Urine Glucose (UA) Urine Ketones Urine Blood Urine Nitrate Urine Bilirubin Urine Urobilinogen Ur Leukocyte Esterase Urine RBC (Auto) Urine Microscopic WBC Ur Squamous Epith Cells Urine Bacteria Hyaline Casts 05/24/17 05/24/17 05/24/17 04:10 04:10 05:35 WBC RBC Hgb Hct MCV MCH MCHC RDW Plt Count MPV Neut % (Auto) Lymph % (Auto) [place] % (Auto) Eos % (Auto) Baso % (Auto) Neut # Lymph # [place] # Eos # Baso # PT 15.2 H D INR 1.5 H D APTT 33.4 pCO2 pO2 39 HCO3 ABG pH ABG Total CO2 ABG O2 Saturation ABG Base Excess [place] Test ABG Potassium VBG pH 7.37 VBG pCO2 76 H* VBG HCO3 35.8 VBG O2 Sat (Calc) 72.6 H VBG Base Excess 14.8 H A-a O2 Difference Sodium 143 Chloride 98 Glucose Lactate Vent Mode FiO2 Blood Gas Comments 6075 Crit Value Called To Faye concepcion rn Crit Value Called By Crit Value Read Back Y Blood Gas Notified Time 540 Potassium 4.4 Carbon Dioxide 36 H Anion Gap 13 BUN 40 H Creatinine 1.2 Est GFR ( Amer) 51 Est GFR (Non-Af Amer) 42 POC Glucose (mg/dL) Random Glucose 161 H Calcium 9.2 Total Bilirubin 0.6 AST 27 ALT 32 Alkaline Phosphatase 103 Troponin I Total Protein 7.1 Albumin 3.7 Globulin 3.4 Albumin/Globulin Ratio 1.1 Arterial Blood Potassium Urine Color Urine Clarity Urine pH Ur Specific [place] Urine Protein Urine Glucose (UA) Urine Ketones Urine Blood Urine Nitrate Urine Bilirubin Urine Urobilinogen Ur Leukocyte Esterase Urine RBC (Auto) Urine Microscopic WBC Ur Squamous Epith Cells Urine Bacteria Hyaline Casts 05/24/17 05/24/17 05/24/17 05:37 06:14 11:15 WBC RBC Hgb Hct MCV MCH MCHC RDW Plt Count MPV Neut % (Auto) Lymph % (Auto) [place] % (Auto) Eos % (Auto) Baso % (Auto) Neut # Lymph # [place] # Eos # Baso # PT INR APTT pCO2 71 H* pO2 86 HCO3 38.7 H ABG pH 7.42 ABG Total CO2 48.3 H ABG O2 Saturation 96.4 ABG Base Excess 17.7 H [place] Test Yes ABG Potassium 4.1 VBG pH VBG pCO2 VBG HCO3 VBG O2 Sat (Calc) VBG Base Excess A-a O2 Difference 110.0 Sodium 142.0 Chloride 102.0 Glucose 172 H Lactate 1.0 Vent Mode High flow lpm FiO2 40.0 Blood Gas Comments Crit Value Called To Faye concepcion rn Crit Value Called By 6075 Crit Value Read Back Y Blood Gas Notified Time 544 Potassium Carbon Dioxide Anion Gap BUN Creatinine Est GFR ( Amer) Est GFR (Non-Af Amer) POC Glucose (mg/dL) 185 H 199 H Random Glucose Calcium Total Bilirubin AST ALT Alkaline Phosphatase Troponin I Total Protein Albumin Globulin Albumin/Globulin Ratio Arterial Blood Potassium 4.1 Urine Color Urine Clarity Urine pH Ur Specific [place] Urine Protein Urine Glucose (UA) Urine Ketones Urine Blood Urine Nitrate Urine Bilirubin Urine Urobilinogen Ur Leukocyte Esterase Urine RBC (Auto) Urine Microscopic WBC Ur Squamous Epith Cells Urine Bacteria Hyaline Casts Assessment & Plan (1) Chronic respiratory failure with hypoxia and hypercapnia Status: Chronic Priority: High (2) CHF (congestive heart failure) Status: Chronic Priority: High (3) COPD (chronic obstructive pulmonary disease) Status: Chronic Priority: High (4) Pulmonary hypertension Status: Chronic Priority: High - Assessment and Plan (Free Text) Plan: Agree with current medical therapy. Continue to use NPPV with high flow nasal cannula. Continue nebulizer therapy with levalbuterol low dose. I agree with the nonuse of antibiotics at this time. Will need routine monitoring of PaO2 and PaCO2. Follow-up portable chest x-ray in the a.m. tomorrow. Patient's forced expiratory capacity is too low for use of Acapella. Will follow with you, thanks. ICU consultation time spent 30min. - Date & Time Date: 05/24/17 Time: 13:00
[2017-05-24] MEDS: Patient's Own Med (Dorzolamide 2%/Timolol 0.5% [Cosopt 2%-0.5% Opht] 1 DROP) EACHEYE SCH (17:16)
[2017-05-24] MEDS: Hydrocortisone 2.5% (Rectal) CREAM PR SCH (17:16)
[2017-05-24] MEDS: Patient's Own Med (Cyclosporine [Restasis] 1 DROP) BOTHEYES SCH (17:16)
[2017-05-24] MEDS: Saccharomyces Boulardi 250 mg Cap PO SCH (17:17)
[2017-05-24] MEDS: TAFLUPROST EACHEYE SCH (21:03)
[2017-05-25] MEDS: Levalbuterol 0.63 MG/3 ML Inhal Soln UD INH PRN (02:39)
[2017-05-25] MEDS: Levalbuterol 0.63 MG/3 ML Inhal Soln UD INH SCH ×3 (07:05→23:15)
[2017-05-25 07:53] LABS: BASO % 0.2 % (0.0-2.0); EOS % 0.2 % (0.0-4.0); HEMATOCRIT 29.7 % (34.0-47.0); LYMPH # 0.5 K/uL (1.0-4.3); LYMPH % 8.4 % (20.0-40.0); MEAN CELL VOLUME 103.3 fl (81.0-99.0); MEAN CORPUSCULAR HEMOGLOBIN 32.4 pg (27.0-31.0); MEAN CORPUSCULAR HGB CONC 31.3 g/dL (33.0-37.0); MEAN PLATELET VOLUME 10.6 fl (7.2-11.7); MONO # 0.5 K/uL (0.0-0.8); MONO % 9.1 % (0.0-10.0); NEUT # 4.6 K/uL (1.8-7.0); NEUT % 82.1 % (50.0-75.0); NRBC % 0.2 % (0.0-0.0); PLATELET COUNT 133 K/uL (130-400); RED CELL DISTRIBUTION WIDTH 18.6 % (11.5-14.5); WHITE BLOOD COUNT 5.6 K/uL (4.8-10.8)
[2017-05-25] MEDS: Patient's Own Med (Cyclosporine [Restasis] 1 DROP) BOTHEYES SCH ×2 (08:23→16:28)
[2017-05-25] MEDS: Saccharomyces Boulardi 250 mg Cap PO SCH ×2 (08:27→16:25)
[2017-05-25] MEDS: Multivitamin With Minerals Tab PO SCH (08:32)
[2017-05-25] MEDS: Patient's Own Med (Dorzolamide 2%/Timolol 0.5% [Cosopt 2%-0.5% Opht] 1 DROP) EACHEYE SCH ×2 (08:33→16:24)
[2017-05-25] MEDS: Hydrocortisone 2.5% (Rectal) CREAM PR SCH ×2 (08:40→16:27)
[2017-05-25 08:43] LABS: BILIRUBIN,TOTAL 0.5 mg/dl (0.2-1.3); POTASSIUM 3.8 MMOL/L (3.6-5.0); TOTAL PROTEIN 6.4 G/DL (6.3-8.2)
[2017-05-25 09:30] LABS: ALB/GLOB RATIO 1.1 (1.0-2.1)
--- NOTE | 2017-05-25 09:42 | CP.PCM.CON ---
History of Present Illness - History of Present Illness History of Present Illness: alert and awake, not c/o any SOB or pain , had headache yesterday not this am, Has been on HCNL Oxyy, , saturation has been > 95%, BP has been stable On Milrinon infusion Past Patient History - Infectious Disease Hx of Infectious Diseases: None - Tetanus Immunizations Tetanus Immunization: Unknown - Past Medical History & Family History Past Medical History?: Yes Past Family History: Reviewed and not pertinent - Past Social History Smoking Status: Former Smoker Chewing Tobacco Use: No Cigar Use: No Alcohol: None Drugs: Denies Home Situation {Lives}: With Family Domestic Violence: Negative - CARDIAC Hx Cardiac Disorders: Yes Hx Atrial Fibrillation: Yes Hx Congestive Heart Failure: Yes Hx Heart Attack: Yes Hx Hypotension: Yes Hx Internal Defibrillator: Yes Hx Peripheral Edema: Yes Other/Comment: Pericardiectomy - PULMONARY Hx Respiratory Disorders: Yes Hx Chronic Obstructive Pulmonary Disease (COPD): Yes Other/Comment: Pleural effusion. Pulmonary hypertension. - NEUROLOGICAL Hx Neurological Disorder: Yes Hx Dementia: Yes Hx Migraine: Yes (Remote past) - HEENT Hx Cataracts: Yes Hx Glaucoma: Yes Hx Macular Degeneration: Yes - RENAL Hx Chronic Kidney Disease: No - ENDOCRINE/METABOLIC Hx Diabetes Mellitus Type 2: Yes - HEMATOLOGICAL/ONCOLOGICAL Hx Anemia: Yes Hx Human Immunodeficiency Virus (HIV): No - INTEGUMENTARY Hx Dermatological Problems: No - MUSCULOSKELETAL/RHEUMATOLOGICAL Hx Falls: No Hx Unsteady Gait: Yes - GASTROINTESTINAL Hx Gastritis: Yes Other/Comment: GI bleed while on warfarin, site undetermined. - GENITOURINARY/GYNECOLOGICAL Hx Incontinence: Yes Hx Urinary Tract Infection: Yes (With sepsis) - PSYCHIATRIC Hx Anxiety: Yes Hx Substance Use: No - SURGICAL HISTORY Hx Appendectomy: No Hx Coronary Artery Bypass Graft: Yes - ANESTHESIA Hx Anesthesia: Yes Hx Anesthesia Reactions: No Hx Malignant Hyperthermia: No Meds Allergies/Adverse Reactions: Allergies Allergy/AdvReac Type Severity Reaction Status Date / Time Sulfa (Sulfonamide Allergy ITCHING Verified 05/23/17 14:24 Antibiotics) preservatives Allergy Unknown SWELLING Uncoded 05/23/17 14:24 - Medications Medications: Current Medications Acetaminophen (Tylenol 325mg Tab) 325 mg PO Q6H PRN PRN Reason: Headache Last Admin: 05/24/17 14:44 Dose: 325 mg Allopurinol (Zyloprim) 100 mg PO DAILY [facility] Last Admin: 05/25/17 08:27 Dose: 100 mg Benzonatate (Tessalon Perles) 200 mg PO TID PRN PRN Reason: Cough Carvedilol (Coreg) 3.125 mg PO Q12 [facility] Last Admin: 05/25/17 08:22 Dose: 3.125 mg Ferrous Sulfate (Feosol) 325 mg PO BID [facility] Last Admin: 05/25/17 08:33 Dose: 325 mg Furosemide (Lasix) 60 mg IV Q12 [facility] Last Admin: 05/25/17 08:21 Dose: 60 mg Home Med (Cyclosporine [Restasis]) 1 drop BOTHEYES BID [facility] Last Admin: 05/25/17 08:23 Dose: 1 drop Home Med (Dorzolamide 2%/Timolol 0.5% [Cosopt 2%-0.5% Opht]) 1 drop EACHEYE BID [facility] Last Admin: 05/25/17 08:33 Dose: 1 drop Home Med (Tafluprost/Pf [Zioptan 0.0015% Eye Drops]) 1 drop EACHEYE HS [facility] Last Admin: 05/24/17 21:03 Dose: 1 drop Hydrocortisone (Anusol-Hc) 1 applic [place] BID [facility] Last Admin: 05/25/17 08:40 Dose: 1 applic Milrinone Lactate/Dextrose (Primacor 20mg/100ml D5w) 100 mls @ 4.355 mls/hr IV .[id number] [facility]; 0.2 MCG/KG/MIN PRN Reason: Protocol Levalbuterol HCl (Xopenex) 0.63 mg INH RQ8 [facility] Last Admin: 05/25/17 07:05 Dose: 0.63 mg Levalbuterol HCl (Xopenex) 0.63 mg INH RQ8 PRN PRN Reason: Shortness of Breath Last Admin: 05/25/17 02:39 Dose: 0.63 mg Multivitamins/Minerals (Therapeutic-M Tab) 1 tab PO DAILY [facility] Last Admin: 05/25/17 08:32 Dose: 1 tab Pantoprazole Sodium (Protonix Inj) 40 mg IVP DAILY [facility] Last Admin: 05/25/17 08:24 Dose: 40 mg Saccharomyces Boulardii (Florastor) 250 mg PO BID [facility] Last Admin: 05/25/17 08:27 Dose: 250 mg Sitagliptin Phosphate (Januvia) 50 mg PO DAILY [facility] Last Admin: 05/25/17 08:33 Dose: 50 mg Results - Vital Signs Recent Vital Signs: Last Vital Signs Temp 97.7 F 05/25/17 08:00 Pulse 75 05/25/17 08:22 Resp 19 05/25/17 08:00 BP 124/61 05/25/17 08:22 Pulse Ox 96 05/25/17 08:00 - Labs Result Diagrams: 05/25/17 07:30 05/25/17 05:30 Labs: Laboratory Results - last 24 hr 05/24/17 05/24/17 05/24/17 11:15 17:30 21:41 WBC RBC Hgb Hct MCV MCH MCHC RDW Plt Count MPV Neut % (Auto) Lymph % (Auto) [place] % (Auto) Eos % (Auto) Baso % (Auto) Neut # Lymph # [place] # Eos # Baso # Sodium Potassium Chloride Carbon Dioxide Anion Gap BUN Creatinine Est GFR ( Amer) Est GFR (Non-Af Amer) POC Glucose (mg/dL) 199 H 257 H 203 H Random Glucose Calcium Total Bilirubin AST ALT Alkaline Phosphatase Total Protein Albumin Globulin Albumin/Globulin Ratio 05/25/17 05/25/17 05/25/17 05:30 06:16 07:30 WBC 5.6 RBC 2.87 L Hgb 9.3 L Hct 29.7 L MCV 103.3 H MCH 32.4 H MCHC 31.3 L RDW 18.6 H Plt Count 133 MPV 10.6 Neut % (Auto) 82.1 H Lymph % (Auto) 8.4 L [place] % (Auto) 9.1 Eos % (Auto) 0.2 Baso % (Auto) 0.2 Neut # 4.6 Lymph # 0.5 L [place] # 0.5 Eos # 0.0 Baso # 0.0 Sodium 144 Potassium 3.8 Chloride 96 L Carbon Dioxide 45 H* D Anion Gap 7 L BUN 36 H Creatinine 1.2 Est GFR ( Amer) 51 Est GFR (Non-Af Amer) 42 POC Glucose (mg/dL) 188 H Random Glucose 164 H Calcium 9.0 Total Bilirubin 0.5 AST 25 ALT 26 Alkaline Phosphatase 89 Total Protein 6.4 Albumin 3.3 L Globulin 3.1 Albumin/Globulin Ratio 1.1
--- NOTE | 2017-05-25 09:45 | CP.CCUPN ---
CCU Subjective - Physician Review Events Since Last Encounter (Free Text): 05/25/17 09:42 Alert and awake, no c/o headache this am, no pain, has been on HFNC and saturation has been > 95% and BP has been stable On Milrinon infusiona and on lasix. CCU Objective - Vital Signs / Intake & Output Vital Signs (Last 4 hours): Vital Signs Temp Pulse Resp BP Pulse Ox 05/25/17 08:22 75 124/61 05/25/17 08:21 124/61 05/25/17 08:00 97.7 F 75 19 124/61 96 05/25/17 07:05 20 05/25/17 06:00 77 19 119/49 L 100 Intake and Output (Last 8hrs): Intake & Output 05/24/17 05/25/17 05/25/17 22:59 06:59 14:59 Intake Total 88 80 Output Total 1000 550 Balance -912 -470 Intake: IV 16 Intake, Piggyback 22 20 Oral 50 60 Output: Urine 1000 550 Urethral (Mackey) 1000 550 - Physical Exam Head: Positive for: Normocephalic Pupils: Positive for: PERRL Extroacular Muscles: Positive for: EOMI Conjunctiva: Positive for: Normal. Negative for: Icteric Pharnyx: Positive for: Normal, Other (loose dentures noted.) Neck: Positive for: Normal Range of Motion, JVD. Negative for: Bruit Respiratory/Chest: Positive for: Clear to Auscultation, Rales. Negative for: Accessory Muscle Use, Wheezes Cardiovascular: Positive for: Regular Rate and Rhythm (Paced), Murmurs (+2 apical systolic murmur), Irregular Rhythm, Peripheal Pulses Present. Negative for: Rub Abdomen: Positive for: Normal Bowel Sounds. Negative for: Tenderness, Distention Upper Extremity: Positive for: Edema Lower Extremity: Positive for: Edema. Negative for: CALF TENDERNESS, Cyanosis Neurological: Positive for: Motor Func Grossly Intact Skin: Positive for: Warm. Negative for: Rashes Psychiatric: Positive for: Lethargic - Medications Active Medications: Active Medications Generic Name Dose Route Start Last Admin Trade Name Freq PRN Reason Stop Dose Admin Acetaminophen 325 mg 05/24/17 12:33 05/24/17 14:44 Tylenol 325mg Tab PO 325 mg Q6H PRN Administration Headache Allopurinol 100 mg 05/25/17 09:00 05/25/17 08:27 Zyloprim PO 100 mg DAILY [facility] Administration Benzonatate 200 mg 05/24/17 12:33 Tessalon Perles PO TID PRN Cough Carvedilol 3.125 mg 05/23/17 21:00 05/25/17 08:22 Coreg PO 3.125 mg Q12 [facility] Administration Ferrous Sulfate 325 mg 05/24/17 17:00 05/25/17 08:33 Feosol PO 325 mg BID [facility] Administration Furosemide 60 mg 05/23/17 21:00 05/25/17 08:21 Lasix IV 60 mg Q12 [facility] Administration Home Med 1 drop 05/24/17 17:00 05/25/17 08:23 Cyclosporine [Restasis] BOTHEYES 1 drop BID [facility] Administration Home Med 1 drop 05/24/17 17:00 05/25/17 08:33 Dorzolamide 2%/Timolol 0.5% [Cosopt 2%-0.5% Opht] EACHEYE 1 drop BID [facility] Administration Home Med 1 drop 05/24/17 22:00 05/24/17 21:03 Tafluprost/Pf [Zioptan 0.0015% Eye Drops] EACHEYE 1 drop HS [facility] Administration Hydrocortisone 1 applic 05/24/17 17:00 05/25/17 08:40 Anusol-Hc [place] 1 applic BID [facility] Administration Milrinone Lactate/Dextrose 100 mls @ 4.355 mls/hr 05/23/17 16:39 Primacor 20mg/100ml D5w IV .[id number] [facility] Protocol 0.2 MCG/KG/MIN Levalbuterol HCl 0.63 mg 05/23/17 21:00 05/25/17 07:05 Xopenex INH 0.63 mg RQ8 [facility] Administration Levalbuterol HCl 0.63 mg 05/24/17 12:40 05/25/17 02:39 Xopenex INH 0.63 mg RQ8 PRN Administration Shortness of Breath Multivitamins/Minerals 1 tab 05/25/17 09:00 05/25/17 08:32 Therapeutic-M Tab PO 1 tab DAILY [facility] Administration Pantoprazole Sodium 40 mg 05/23/17 16:15 05/25/17 08:24 Protonix Inj IVP 40 mg DAILY [facility] Administration Saccharomyces Boulardii 250 mg 05/24/17 17:00 05/25/17 08:27 Florastor PO 250 mg BID [facility] Administration Sitagliptin Phosphate 50 mg 05/25/17 09:00 05/25/17 08:33 Januvia PO 50 mg DAILY [facility] Administration - Patient Studies Lab Studies: Microbiology Studies 05/23/17 17:48 MRSA Culture (Admit) - Final Naris MRSA NOT DETECTED Lab Studies 05/25/17 05/25/17 05/25/17 Range/Units 07:30 06:16 05:30 WBC 5.6 (4.8-10.8) K/uL RBC 2.87 L (3.80-5.20) Mil/uL Hgb 9.3 L (12.0-16.0) g/dL Hct 29.7 L (34.0-47.0) % MCV 103.3 H (81.0-99.0) fl MCH 32.4 H (27.0-31.0) pg MCHC 31.3 L (33.0-37.0) g/dL RDW 18.6 H (11.5-14.5) % Plt Count 133 (130-400) K/uL MPV 10.6 (7.2-11.7) fl Neut % (Auto) 82.1 H (50.0-75.0) % Lymph % (Auto) 8.4 L (20.0-40.0) % [place] % (Auto) 9.1 (0.0-10.0) % Eos % (Auto) 0.2 (0.0-4.0) % Baso % (Auto) 0.2 (0.0-2.0) % Neut # 4.6 (1.8-7.0) K/uL Lymph # 0.5 L (1.0-4.3) K/uL [place] # 0.5 (0.0-0.8) K/uL Eos # 0.0 (0.0-0.7) K/uL Baso # 0.0 (0.0-0.2) K/uL Sodium 144 (132-148) mmol/l Potassium 3.8 (3.6-5.0) MMOL/L Chloride 96 L (98-107) mmol/L Carbon Dioxide 45 H* D (22-30) mmol/L Anion Gap 7 L (10-20) BUN 36 H (7-17) mg/dl Creatinine 1.2 (0.7-1.2) mg/dL Est GFR ( Amer) 51 Est GFR (Non-Af Amer) 42 POC Glucose (mg/dL) 188 H (65-110) mg/dL Random Glucose 164 H (65-105) mg/dL Calcium 9.0 (8.4-10.2) mg/dL Total Bilirubin 0.5 (0.2-1.3) mg/dl AST 25 (14-36) U/L ALT 26 (9-52) U/L Alkaline Phosphatase 89 (38-126) U/L Total Protein 6.4 (6.3-8.2) G/DL Albumin 3.3 L (3.5-5.0) g/dL Globulin 3.1 (2.2-3.9) gm/dL Albumin/Globulin Ratio 1.1 (1.0-2.1) 05/24/17 05/24/17 05/24/17 Range/Units 21:41 17:30 11:15 WBC (4.8-10.8) K/uL RBC (3.80-5.20) Mil/uL Hgb (12.0-16.0) g/dL Hct (34.0-47.0) % MCV (81.0-99.0) fl MCH (27.0-31.0) pg MCHC (33.0-37.0) g/dL RDW (11.5-14.5) % Plt Count (130-400) K/uL MPV (7.2-11.7) fl Neut % (Auto) (50.0-75.0) % Lymph % (Auto) (20.0-40.0) % [place] % (Auto) (0.0-10.0) % Eos % (Auto) (0.0-4.0) % Baso % (Auto) (0.0-2.0) % Neut # (1.8-7.0) K/uL Lymph # (1.0-4.3) K/uL [place] # (0.0-0.8) K/uL Eos # (0.0-0.7) K/uL Baso # (0.0-0.2) K/uL Sodium (132-148) mmol/l Potassium (3.6-5.0) MMOL/L Chloride (98-107) mmol/L Carbon Dioxide (22-30) mmol/L Anion Gap (10-20) BUN (7-17) mg/dl Creatinine (0.7-1.2) mg/dL Est GFR ( Amer) Est GFR (Non-Af Amer) POC Glucose (mg/dL) 203 H 257 H 199 H (65-110) mg/dL Random Glucose (65-105) mg/dL Calcium (8.4-10.2) mg/dL Total Bilirubin (0.2-1.3) mg/dl AST (14-36) U/L ALT (9-52) U/L Alkaline Phosphatase (38-126) U/L Total Protein (6.3-8.2) G/DL Albumin (3.5-5.0) g/dL Globulin (2.2-3.9) gm/dL Albumin/Globulin Ratio (1.0-2.1) Laboratory Results - last 24 hr 05/24/17 05/24/17 05/24/17 11:15 17:30 21:41 WBC RBC Hgb Hct MCV MCH MCHC RDW Plt Count MPV Neut % (Auto) Lymph % (Auto) [place] % (Auto) Eos % (Auto) Baso % (Auto) Neut # Lymph # [place] # Eos # Baso # Sodium Potassium Chloride Carbon Dioxide Anion Gap BUN Creatinine Est GFR ( Amer) Est GFR (Non-Af Amer) POC Glucose (mg/dL) 199 H 257 H 203 H Random Glucose Calcium Total Bilirubin AST ALT Alkaline Phosphatase Total Protein Albumin Globulin Albumin/Globulin Ratio 05/25/17 05/25/17 05/25/17 05:30 06:16 07:30 WBC 5.6 RBC 2.87 L Hgb 9.3 L Hct 29.7 L MCV 103.3 H MCH 32.4 H MCHC 31.3 L RDW 18.6 H Plt Count 133 MPV 10.6 Neut % (Auto) 82.1 H Lymph % (Auto) 8.4 L [place] % (Auto) 9.1 Eos % (Auto) 0.2 Baso % (Auto) 0.2 Neut # 4.6 Lymph # 0.5 L [place] # 0.5 Eos # 0.0 Baso # 0.0 Sodium 144 Potassium 3.8 Chloride 96 L Carbon Dioxide 45 H* D Anion Gap 7 L BUN 36 H Creatinine 1.2 Est GFR ( Amer) 51 Est GFR (Non-Af Amer) 42 POC Glucose (mg/dL) 188 H Random Glucose 164 H Calcium 9.0 Total Bilirubin 0.5 AST 25 ALT 26 Alkaline Phosphatase 89 Total Protein 6.4 Albumin 3.3 L Globulin 3.1 Albumin/Globulin Ratio 1.1 Fingerstick Blood Sugar Results: 188 Review of Systems - Review of Systems Systems not reviewed;Unavailable: Unstable Vital Signs - Constitutional Constitutional: Weakness - EENT Eyes: As Per HPI Ears: UNREMARKABLE Nose/Mouth/Throat: UNREMARKABLE - Cardiovascular Cardiovascular: Dyspnea on Exertion, Edema - Respiratory Respiratory: Dyspnea - Gastrointestinal Gastrointestinal: As Per HPI Critical Care Progress Note - Nutrition Nutrition: Nutrition Category Date Time Status Dysphagia/Modified Consistency Diet [DIET] Diets 05/23/17 Dinner Active Assessment/Plan - Assessment and Plan (Free Text) Assessment: Assessment: Resp failure: hypercapnic and hypoxic, due to acute on chronic decompensated HF Hypoxia and hypercapnea Resp acidosis, chronic and metabolic alkalosis, worsening met alkalosis now 45 Pulm congestion , better A fib : rate controlled Anemia: mild, stab;e Plan: CXR ordered, will review. On Milrinon infusion On lasxi 60 mg Iv q 12 H Will add acetazolamide On HFNC 35 L/M, Fio 40% Bronchodilators Continue other meds, reviewed.
--- NOTE | 2017-05-25 09:47 | CP.PCM.PN ---
Subjective - Date & Time of Evaluation Date of Evaluation: 05/25/17 Time of Evaluation: 08:00 - Subjective Subjective: Pt is doing fairly well on O2 NC no real complaints Fatigue Objective - Vital Signs/Intake and Output Vital Signs (last 24 hours): Temp Pulse Resp BP Pulse Ox 97.7 F 75 19 124/61 96 05/25/17 08:00 05/25/17 08:22 05/25/17 08:00 05/25/17 08:22 05/25/17 08:00 Intake and Output: 05/25/17 05/25/17 06:59 18:59 Intake Total 102 Output Total 550 Balance -448 - Medications Medications: Current Medications Acetaminophen (Tylenol 325mg Tab) 325 mg PO Q6H PRN PRN Reason: Headache Last Admin: 05/24/17 14:44 Dose: 325 mg Allopurinol (Zyloprim) 100 mg PO DAILY [facility] Last Admin: 05/25/17 08:27 Dose: 100 mg Benzonatate (Tessalon Perles) 200 mg PO TID PRN PRN Reason: Cough Carvedilol (Coreg) 3.125 mg PO Q12 [facility] Last Admin: 05/25/17 08:22 Dose: 3.125 mg Ferrous Sulfate (Feosol) 325 mg PO BID [facility] Last Admin: 05/25/17 08:33 Dose: 325 mg Furosemide (Lasix) 60 mg IV Q12 [facility] Last Admin: 05/25/17 08:21 Dose: 60 mg Home Med (Cyclosporine [Restasis]) 1 drop BOTHEYES BID [facility] Last Admin: 05/25/17 08:23 Dose: 1 drop Home Med (Dorzolamide 2%/Timolol 0.5% [Cosopt 2%-0.5% Opht]) 1 drop EACHEYE BID [facility] Last Admin: 05/25/17 08:33 Dose: 1 drop Home Med (Tafluprost/Pf [Zioptan 0.0015% Eye Drops]) 1 drop EACHEYE HS [facility] Last Admin: 05/24/17 21:03 Dose: 1 drop Hydrocortisone (Anusol-Hc) 1 applic IA BID [facility] Last Admin: 05/25/17 08:40 Dose: 1 applic Milrinone Lactate/Dextrose (Primacor 20mg/100ml D5w) 100 mls @ 4.355 mls/hr IV .[id number] [facility]; 0.2 MCG/KG/MIN PRN Reason: Protocol Levalbuterol HCl (Xopenex) 0.63 mg INH RQ8 [facility] Last Admin: 05/25/17 07:05 Dose: 0.63 mg Levalbuterol HCl (Xopenex) 0.63 mg INH RQ8 PRN PRN Reason: Shortness of Breath Last Admin: 05/25/17 02:39 Dose: 0.63 mg Multivitamins/Minerals (Therapeutic-M Tab) 1 tab PO DAILY [facility] Last Admin: 05/25/17 08:32 Dose: 1 tab Pantoprazole Sodium (Protonix Inj) 40 mg IVP DAILY [facility] Last Admin: 05/25/17 08:24 Dose: 40 mg Saccharomyces Boulardii (Florastor) 250 mg PO BID [facility] Last Admin: 05/25/17 08:27 Dose: 250 mg Sitagliptin Phosphate (Januvia) 50 mg PO DAILY [facility] Last Admin: 05/25/17 08:33 Dose: 50 mg - Labs Labs: 05/25/17 07:30 05/25/17 05:30 PT 15.2 Seconds (9.8-13.1) H D 05/24/17 04:10 INR 1.5 (0.9-1.2) H D 05/24/17 04:10 APTT 33.4 Seconds (25.6-37.1) 05/24/17 04:10 Assessment and Plan (1) CHF (congestive heart failure) Status: Chronic (2) Hypercarbia Status: Acute (3) Dyspnea Status: Acute (4) Atrial fibrillation with controlled ventricular response Status: Chronic (5) COPD (chronic obstructive pulmonary disease) Status: Chronic (6) Cardiomyopathy Status: Chronic (7) Pulmonary hypertension Status: Chronic
[2017-05-25 10:53] LABS: NEUTROPHIL 83 % (42-75); STOMATOCYTES SLIGHT; TOTAL CELLS COUNTED 100
[2017-05-25 10:54] LABS: LARGE PLATELETS PRESENT
--- NOTE | 2017-05-25 11:06 | RAD ---
HISTORY: Shortness of breath. COMPARISON: 05/23/2017. FINDINGS: LUNGS: New right lower lobe infiltrate. PLEURA: New right pleural effusion. CARDIOVASCULAR: Cardiomegaly. No evidence of acute, significant cardiovascular disease. Position/ configuration of pacemaker Satisfactory. OSSEOUS STRUCTURES: No significant abnormalities. VISUALIZED UPPER ABDOMEN: Normal. OTHER FINDINGS: None. IMPRESSION: New right lower lobe infiltrate/ right pleural effusion.
[2017-05-25] MEDS ORDERED: Insulin Regular 100 units/ml SC SCH (11:30)
[2017-05-25] MEDS: Milrinone 20mg/100ml D5W 100 ML IV SCH (16:19)
[2017-05-25] MEDS: Insulin Regular 100 units/ml SC SCH ×2 (16:43→22:00)
[2017-05-25] MEDS: TAFLUPROST EACHEYE SCH (21:18)
[2017-05-26 05:20] LABS: HEMATOCRIT 28.7 % (34.0-47.0); MEAN CELL VOLUME 104.2 fl (81.0-99.0); MEAN CORPUSCULAR HEMOGLOBIN 32.5 pg (27.0-31.0); MEAN CORPUSCULAR HGB CONC 31.1 g/dL (33.0-37.0); RED CELL DISTRIBUTION WIDTH 18.5 % (11.5-14.5); WHITE BLOOD COUNT 6.6 K/uL (4.8-10.8)
[2017-05-26 05:27] LABS: BILIRUBIN,TOTAL 0.5 mg/dl (0.2-1.3); POTASSIUM 3.5 MMOL/L (3.6-5.0); TOTAL PROTEIN 6.7 G/DL (6.3-8.2)
[2017-05-26 05:57] LABS: THYROID STIMULATING HORMONE 2.77 mIU/ML (0.46-4.68)
--- NOTE | 2017-05-26 06:29 | CON ---
ENDOCRINOLOGY CONSULT DATE: ICU room 421. HISTORY OF PRESENT ILLNESS: This is an 87-year-old female with known history of type 2 diabetes and hypertension and significant cardiac vasculopathy, now admitted because of progressive shortness of breath while at the TCU and was evaluated to be in congestive heart failure and rapid atrial fibrillation and is now being referred for diabetic management. PAST MEDICAL HISTORY: As mentioned above; history of type 2 diabetes, previously controlled on a combination of glipizide given as 10 mg b.i.d. with Januvia given as 50 mg once daily, history of hypertensive cardiovascular disease and dyslipidemia, history of diabetic retinopathy, polyneuropathy, and nephropathy. There is also significant history of coronary artery disease with previous coronary artery bypass graft surgery. She also has cardiac tachyarrhythmia with chronic atrial fibrillation. She has had multiple admissions for congestive heart failure and has been documented to have very low ejection fraction as noted thereof. FAMILY HISTORY: Positive for hypertension and diabetes. SOCIAL HISTORY: The patient has supportive family, admits to prior history of smoking and very supportive family otherwise. REVIEW OF SYSTEMS: As mentioned above. Admits to generalized body weakness with easy fatigability and tiredness of suboptimal energy level. No recent chest pains or palpitations or PNDs. Her oral intake has been variable with nausea, dyspepsia and vague upper abdominal pains. PHYSICAL EXAMINATION: GENERAL: An asthenic female, in no apparent distress. VITAL SIGNS: Blood pressure 140/80, pulse of 70 beats per minute, regular, temperature 98 and respirations 20. Height is 5 feet 4 inches, weight 160 pounds. HEENT: Head normocephalic. Eyes; anicteric with pink conjunctivae. Funduscopy not possible at this time. Ears, nose, and throat otherwise normal. NECK: Neck is supple. Thyroid gland is normal in size, no carotid bruits or cervical adenopathy. CARDIOPULMONARY: Adynamic precordium. S1 and S2 is rapid and regular. LUNGS: Shows scattered rhonchi with bibasilar rales. ABDOMEN: Flat, soft with positive bowel sounds. There is also evidence of rebound tenderness as noted. EXTREMITIES: There is +2 bipedal edema. Pulses are +2 bilaterally. LABORATORY DATA: The chemistry showed a BUN of 36, sodium 144, potassium 3.8, chloride 96, and CO2 is 36. Glucose 164, the glucose levels have raised from 188 to 294 mg/dL. ASSESSMENT: This is an 87-year-old female with uncontrolled and decompensated type 2 insulin requiring diabetes presenting here with diabetic microvascular complications of retinopathy and polyneuropathy with diabetic macrovascular complications of coronary artery disease with a previous coronary artery bypass graft surgery and recorded admissions for congestive heart failure. PLAN OF MANAGEMENT: As discussed with the patient and staff, we will modify the current insulin regimen and switch over to a combination of dual oral hypoglycemic drug therapy. We will modify the coverage scale to ambika hypoglycemia and detailed orders have been given. We will also obtain a hemoglobin A1c to confirm prior glycemic control and baseline thyroid function studies will be ordered. We will obtain serial chemistries and supplement accordingly as needed. We will also start her back on her dual oral hypoglycemic drug therapy with Januvia given as 50 mg once daily and we will also modify the coverage scale to ambika hypoglycemia and detailed orders have been given. We will obtain serum chemistries and supplement accordingly as needed. We will follow. Lauryn Chandra MD
--- NOTE | 2017-05-26 06:35 | CP.CCUPN ---
CCU Subjective - Physician Review Subjective (Free Text): Sleeping, but easily arousable to name calling, on HFNC 35LPM at 40% oxygen with SPO2 97%, no distress nor accessory mm use nor any paradoxical abd breathing movements. On Milrinone drip at 0.2 mcg/kg/min dose. Negative fluid blaance noted 1.3L last 24H. Other vitals and I/O's reviewed. No fever spikes noted, temps mostly 98F. ROS: No other pertinent negs or positives on 10+ system review. PMSFH: Underwent R thoracentesis 2 weeks ago (05/14). All Nursing and physician documentation reviewed to date; no new pertinent info noted relevant to current medical problems. CXR: (my interp) Bilateral blunting of disc sander, bibasilar interstitial changes more prominent today, left lung looks more involved. MAJOR PROBLEMS: 1. Acute Hypercapneic Resp Failure 2 Decompensated L-CHF / Cardiomyopathy 2. r/oed AMI 3. Chronic A fib on AC 4. Chronic Disease Anemia / Thrombocytopenia 5. Dementia / Delirium 6. DM II PLAN: 1. Check repeat Coags. 2. Consider IR eval for repeat thoracentesis. Discuss with Pulm: CT Chest to eval for interstitial fluid versus consolidation. No fever nor leukocytosis noted. 3. BP levels appear more stable over the past 24H, continue Milrinone. 4. Improvement noted in serum bicarb levels on Diamox. Renal fx no worse on current Lasix dosing at 60mg q12H. 5. Patients son has mentioned to shut off defibrillation function from AICD. Discuss with Cardio. If so, other Advance Directives should be discussed as well. Full Code Status remains in effect. CCU Objective - Vital Signs / Intake & Output Vital Signs (Last 4 hours): Vital Signs Pulse Resp BP Pulse Ox 05/26/17 04:00 78 19 116/55 L 100 Intake and Output (Last 8hrs): Intake & Output 05/25/17 05/25/17 05/26/17 14:59 22:59 06:59 Intake Total 960 519 27 Output Total 800 Balance 960 -281 27 Intake: IV 9 27 Oral 960 510 Output: Urine 800 Urethral (Mackey) 800 - Physical Exam Head: Positive for: Normocephalic Pupils: Positive for: PERRL Extroacular Muscles: Positive for: EOMI Conjunctiva: Positive for: Normal. Negative for: Icteric Pharnyx: Positive for: Normal, Other (loose dentures noted.) Neck: Positive for: Normal Range of Motion, JVD. Negative for: Bruit Respiratory/Chest: Positive for: Clear to Auscultation, Rales. Negative for: Accessory Muscle Use, Wheezes Cardiovascular: Positive for: Regular Rate and Rhythm (Paced), Murmurs (+2 apical systolic murmur), Irregular Rhythm, Peripheal Pulses Present. Negative for: Rub Abdomen: Positive for: Normal Bowel Sounds. Negative for: Tenderness, Distention Upper Extremity: Positive for: Edema Lower Extremity: Positive for: Edema. Negative for: CALF TENDERNESS, Cyanosis Neurological: Positive for: Motor Func Grossly Intact Skin: Positive for: Warm. Negative for: Rashes Psychiatric: Positive for: Lethargic - Medications Active Medications: Active Medications Generic Name Dose Route Start Last Admin Trade Name Freq PRN Reason Stop Dose Admin Acetaminophen 325 mg 05/24/17 12:33 05/24/17 14:44 Tylenol 325mg Tab PO 325 mg Q6H PRN Administration Headache Acetazolamide 250 mg 05/25/17 10:00 05/25/17 16:26 Diamox 250 Mg Tab PO 250 mg BIDWM [facility] Administration Allopurinol 100 mg 05/25/17 09:00 05/25/17 08:27 Zyloprim PO 100 mg DAILY [facility] Administration Benzonatate 200 mg 05/24/17 12:33 05/25/17 16:26 Tessalon Perles PO 200 mg TID PRN Administration Cough Carvedilol 3.125 mg 05/23/17 21:00 05/25/17 20:35 Coreg PO 3.125 mg Q12 [facility] Administration Ferrous Sulfate 325 mg 05/24/17 17:00 05/25/17 16:23 Feosol PO 325 mg BID [facility] Administration Furosemide 60 mg 05/23/17 21:00 05/25/17 20:36 Lasix IV 60 mg Q12 [facility] Administration Glipizide 10 mg 05/25/17 16:30 05/25/17 16:53 Glucotrol PO Not Given BIDAC [facility] Haloperidol Lactate 1 mg 05/25/17 11:15 Haldol IVP ONCE [facility] Home Med 1 drop 05/24/17 17:00 05/25/17 16:28 Cyclosporine [Restasis] BOTHEYES 1 drop BID [facility] Administration Home Med 1 drop 05/24/17 17:00 05/25/17 16:24 Dorzolamide 2%/Timolol 0.5% [Cosopt 2%-0.5% Opht] EACHEYE 1 drop BID [facility] Administration Home Med 1 drop 05/24/17 22:00 05/25/17 21:18 Tafluprost/Pf [Zioptan 0.0015% Eye Drops] EACHEYE 1 drop HS [facility] Administration Hydrocortisone 1 applic 05/24/17 17:00 05/25/17 16:27 Anusol-Hc [place] 1 applic BID [facility] Administration Milrinone Lactate/Dextrose 100 mls @ 4.355 mls/hr 05/23/17 16:39 05/25/17 16: 19 Primacor 20mg/100ml D5w IV 0.2 mcg/kg/min .[id number] [facility] 4.355 mls/hr Protocol Administration 0.2 MCG/KG/MIN Insulin Human Regular 0 units 05/25/17 16:30 05/25/17 22:00 Humulin R SC Not Given ACHS [facility] Protocol Levalbuterol HCl 0.63 mg 05/23/17 21:00 05/25/17 23:15 Xopenex INH 0.63 mg RQ8 [facility] Administration Levalbuterol HCl 0.63 mg 05/24/17 12:40 05/25/17 02:39 Xopenex INH 0.63 mg RQ8 PRN Administration Shortness of Breath Multivitamins/Minerals 1 tab 05/25/17 09:00 05/25/17 08:32 Therapeutic-M Tab PO 1 tab DAILY [facility] Administration Pantoprazole Sodium 40 mg 05/23/17 16:15 05/25/17 08:24 Protonix Inj IVP 40 mg DAILY [facility] Administration Saccharomyces Boulardii 250 mg 05/24/17 17:00 05/25/17 16:25 Florastor PO 250 mg BID [facility] Administration Sitagliptin Phosphate 50 mg 05/25/17 09:00 05/25/17 08:33 Januvia PO 50 mg DAILY [facility] Administration - Patient Studies Lab Studies: Lab Studies 05/26/17 05/26/17 05/26/17 Range/Units 06:16 04:20 04:20 WBC 6.6 (4.8-10.8) K/uL RBC 2.76 L (3.80-5.20) Mil/uL Hgb 9.0 L (12.0-16.0) g/dL Hct 28.7 L (34.0-47.0) % MCV 104.2 H (81.0-99.0) fl MCH 32.5 H (27.0-31.0) pg MCHC 31.1 L (33.0-37.0) g/dL RDW 18.5 H (11.5-14.5) % Plt Count 125 L (130-400) K/uL MPV (7.2-11.7) fl Neut % (Auto) (50.0-75.0) % Lymph % (Auto) (20.0-40.0) % King[place] % (Auto) (0.0-10.0) % Eos % (Auto) (0.0-4.0) % Baso % (Auto) (0.0-2.0) % Neut # (1.8-7.0) K/uL Lymph # (1.0-4.3) K/uL [place]isher # (0.0-0.8) K/uL Eos # (0.0-0.7) K/uL Baso # (0.0-0.2) K/uL Neutrophils % (Manual) (42-75) % Band Neutrophils % (0-2) % Lymphocytes % (Manual) (20-50) % Monocytes % (Manual) (0-10) % Platelet Estimate (NORMAL) Large Platelets Hypochromasia (manual) Poikilocytosis (manual Anisocytosis (manual) Macrocytosis (manual) Ovalocytes Stomatocytes Sodium 145 (132-148) mmol/l Potassium 3.5 L (3.6-5.0) MMOL/L Chloride 96 L (98-107) mmol/L Carbon Dioxide 38 H (22-30) mmol/L Anion Gap 15 (10-20) BUN 29 H (7-17) mg/dl Creatinine 1.2 (0.7-1.2) mg/dL Est GFR ( Amer) 51 Est GFR (Non-Af Amer) 42 POC Glucose (mg/dL) 185 H (65-110) mg/dL Random Glucose 167 H (65-105) mg/dL Calcium 9.0 (8.4-10.2) mg/dL Total Bilirubin 0.5 (0.2-1.3) mg/dl AST 26 (14-36) U/L ALT 26 (9-52) U/L Alkaline Phosphatase 90 (38-126) U/L Total Protein 6.7 (6.3-8.2) G/DL Albumin 3.4 L (3.5-5.0) g/dL Globulin 3.3 (2.2-3.9) gm/dL Albumin/Globulin Ratio 1.0 (1.0-2.1) TSH 3rd Generation 2.77 (0.46-4.68) mIU/ML 05/25/17 05/25/17 05/25/17 Range/Units 21:52 16:41 11:22 WBC (4.8-10.8) K/uL RBC (3.80-5.20) Mil/uL Hgb (12.0-16.0) g/dL Hct (34.0-47.0) % MCV (81.0-99.0) fl MCH (27.0-31.0) pg MCHC (33.0-37.0) g/dL RDW (11.5-14.5) % Plt Count (130-400) K/uL MPV (7.2-11.7) fl Neut % (Auto) (50.0-75.0) % Lymph % (Auto) (20.0-40.0) % [place]isher % (Auto) (0.0-10.0) % Eos % (Auto) (0.0-4.0) % Baso % (Auto) (0.0-2.0) % Neut # (1.8-7.0) K/uL Lymph # (1.0-4.3) K/uL King[place]isher # (0.0-0.8) K/uL Eos # (0.0-0.7) K/uL Baso # (0.0-0.2) K/uL Neutrophils % (Manual) (42-75) % Band Neutrophils % (0-2) % Lymphocytes % (Manual) (20-50) % Monocytes % (Manual) (0-10) % Platelet Estimate (NORMAL) Large Platelets Hypochromasia (manual) Poikilocytosis (manual Anisocytosis (manual) Macrocytosis (manual) Ovalocytes Stomatocytes Sodium (132-148) mmol/l Potassium (3.6-5.0) MMOL/L Chloride (98-107) mmol/L Carbon Dioxide (22-30) mmol/L Anion Gap (10-20) BUN (7-17) mg/dl Creatinine (0.7-1.2) mg/dL Est GFR ( Amer) Est GFR (Non-Af Amer) POC Glucose (mg/dL) 199 H 137 H 294 H (65-110) mg/dL Random Glucose (65-105) mg/dL Calcium (8.4-10.2) mg/dL Total Bilirubin (0.2-1.3) mg/dl AST (14-36) U/L ALT (9-52) U/L Alkaline Phosphatase (38-126) U/L Total Protein (6.3-8.2) G/DL Albumin (3.5-5.0) g/dL Globulin (2.2-3.9) gm/dL Albumin/Globulin Ratio (1.0-2.1) TSH 3rd Generation (0.46-4.68) mIU/ML 05/25/17 05/25/17 Range/Units 07:30 05:30 WBC 5.6 (4.8-10.8) K/uL RBC 2.87 L (3.80-5.20) Mil/uL Hgb 9.3 L (12.0-16.0) g/dL Hct 29.7 L (34.0-47.0) % MCV 103.3 H (81.0-99.0) fl MCH 32.4 H (27.0-31.0) pg MCHC 31.3 L (33.0-37.0) g/dL RDW 18.6 H (11.5-14.5) % Plt Count 133 (130-400) K/uL MPV 10.6 (7.2-11.7) fl Neut % (Auto) 82.1 H (50.0-75.0) % Lymph % (Auto) 8.4 L (20.0-40.0) % King[place]isher % (Auto) 9.1 (0.0-10.0) % Eos % (Auto) 0.2 (0.0-4.0) % Baso % (Auto) 0.2 (0.0-2.0) % Neut # 4.6 (1.8-7.0) K/uL Lymph # 0.5 L (1.0-4.3) K/uL Kingfisher # 0.5 (0.0-0.8) K/uL Eos # 0.0 (0.0-0.7) K/uL Baso # 0.0 (0.0-0.2) K/uL Neutrophils % (Manual) 83 H (42-75) % Band Neutrophils % 1 (0-2) % Lymphocytes % (Manual) 7 L (20-50) % Monocytes % (Manual) 9 (0-10) % Platelet Estimate Normal (NORMAL) Large Platelets Present Hypochromasia (manual) Slight Poikilocytosis (manual Moderate Anisocytosis (manual) Moderate Macrocytosis (manual) Moderate Ovalocytes Slight Stomatocytes Slight Sodium 144 (132-148) mmol/l Potassium 3.8 (3.6-5.0) MMOL/L Chloride 96 L (98-107) mmol/L Carbon Dioxide 45 H* D (22-30) mmol/L Anion Gap 7 L (10-20) BUN 36 H (7-17) mg/dl Creatinine 1.2 (0.7-1.2) mg/dL Est GFR ( Amer) 51 Est GFR (Non-Af Amer) 42 POC Glucose (mg/dL) (65-110) mg/dL Random Glucose 164 H (65-105) mg/dL Calcium 9.0 (8.4-10.2) mg/dL Total Bilirubin 0.5 (0.2-1.3) mg/dl AST 25 (14-36) U/L ALT 26 (9-52) U/L Alkaline Phosphatase 89 (38-126) U/L Total Protein 6.4 (6.3-8.2) G/DL Albumin 3.3 L (3.5-5.0) g/dL Globulin 3.1 (2.2-3.9) gm/dL Albumin/Globulin Ratio 1.1 (1.0-2.1) TSH 3rd Generation (0.46-4.68) mIU/ML Laboratory Results - last 24 hr 09/10/17 09/10/17 09/10/17 05:30 07:30 11:22 WBC 5.6 RBC 2.87 L Hgb 9.3 L Hct 29.7 L MCV 103.3 H MCH 32.4 H MCHC 31.3 L RDW 18.6 H Plt Count 133 MPV 10.6 Neut % (Auto) 82.1 H Lymph % (Auto) 8.4 L King[place]isher % (Auto) 9.1 Eos % (Auto) 0.2 Baso % (Auto) 0.2 Neut # 4.6 Lymph # 0.5 L King[place]isher # 0.5 Eos # 0.0 Baso # 0.0 Neutrophils % (Manual) 83 H Band Neutrophils % 1 Lymphocytes % (Manual) 7 L Monocytes % (Manual) 9 Platelet Estimate Normal Large Platelets Present Hypochromasia (manual) Slight Poikilocytosis (manual Moderate Anisocytosis (manual) Moderate Macrocytosis (manual) Moderate Ovalocytes Slight Stomatocytes Slight Sodium 144 Potassium 3.8 Chloride 96 L Carbon Dioxide 45 H* D Anion Gap 7 L BUN 36 H Creatinine 1.2 Est GFR ( Amer) 51 Est GFR (Non-Af Amer) 42 POC Glucose (mg/dL) 294 H Random Glucose 164 H Calcium 9.0 Total Bilirubin 0.5 AST 25 ALT 26 Alkaline Phosphatase 89 Total Protein 6.4 Albumin 3.3 L Globulin 3.1 Albumin/Globulin Ratio 1.1 TSH 3rd Generation 05/25/17 05/25/17 05/26/17 16:41 21:52 04:20 WBC RBC Hgb Hct MCV MCH MCHC RDW Plt Count MPV Neut % (Auto) Lymph % (Auto) King[place]isher % (Auto) Eos % (Auto) Baso % (Auto) Neut # Lymph # King[place]isher # Eos # Baso # Neutrophils % (Manual) Band Neutrophils % Lymphocytes % (Manual) Monocytes % (Manual) Platelet Estimate Large Platelets Hypochromasia (manual) Poikilocytosis (manual Anisocytosis (manual) Macrocytosis (manual) Ovalocytes Stomatocytes Sodium 145 Potassium 3.5 L Chloride 96 L Carbon Dioxide 38 H Anion Gap 15 BUN 29 H Creatinine 1.2 Est GFR ( Amer) 51 Est GFR (Non-Af Amer) 42 POC Glucose (mg/dL) 137 H 199 H Random Glucose 167 H Calcium 9.0 Total Bilirubin 0.5 AST 26 ALT 26 Alkaline Phosphatase 90 Total Protein 6.7 Albumin 3.4 L Globulin 3.3 Albumin/Globulin Ratio 1.0 TSH 3rd Generation 2.77 05/26/17 05/26/17 04:20 06:16 WBC 6.6 RBC 2.76 L Hgb 9.0 L Hct 28.7 L MCV 104.2 H MCH 32.5 H MCHC 31.1 L RDW 18.5 H Plt Count 125 L MPV Neut % (Auto) Lymph % (Auto) King[place]isher % (Auto) Eos % (Auto) Baso % (Auto) Neut # Lymph # [place] # Eos # Baso # Neutrophils % (Manual) Band Neutrophils % Lymphocytes % (Manual) Monocytes % (Manual) Platelet Estimate Large Platelets Hypochromasia (manual) Poikilocytosis (manual Anisocytosis (manual) Macrocytosis (manual) Ovalocytes Stomatocytes Sodium Potassium Chloride Carbon Dioxide Anion Gap BUN Creatinine Est GFR ( Amer) Est GFR (Non-Af Amer) POC Glucose (mg/dL) 185 H Random Glucose Calcium Total Bilirubin AST ALT Alkaline Phosphatase Total Protein Albumin Globulin Albumin/Globulin Ratio TSH 3rd Generation Fingerstick Blood Sugar Results: 199 Review of Systems - Review of Systems All systems: reviewed and no additional remarkable complaints except (as above) Critical Care Progress Note - Extremities/Vascular Does the Patient have a Central Venous Catheter?: No Does the Patient need a Central Venous Catheter?: No Does the Patient have a Mackey Catheter?: Yes Does the Patient need a Mackey Catheter?: Yes Catheter Insertion Criteria: Need for accurate measurement of output in critically ill patient - Prophylaxis GI Prophylaxis GI: PPI - Prophylaxis DVT Prophylaxis DVT: Not Indicated (on NOAC) - Nutrition Nutrition: Nutrition Category Date Time Status Dysphagia/Modified Consistency Diet [DIET] Diets 05/23/17 Dinner Active
[2017-05-26] MEDS: Levalbuterol 0.63 MG/3 ML Inhal Soln UD INH SCH ×3 (08:00→23:55)
[2017-05-26] MEDS: Patient's Own Med (Cyclosporine [Restasis] 1 DROP) BOTHEYES SCH ×2 (08:35→16:37)
[2017-05-26] MEDS: Patient's Own Med (Dorzolamide 2%/Timolol 0.5% [Cosopt 2%-0.5% Opht] 1 DROP) EACHEYE SCH ×2 (08:36→16:30)
[2017-05-26] MEDS: Hydrocortisone 2.5% (Rectal) CREAM PR SCH ×2 (08:38→16:31)
[2017-05-26] MEDS: Multivitamin With Minerals Tab PO SCH (08:38)
[2017-05-26] MEDS: Saccharomyces Boulardi 250 mg Cap PO SCH ×2 (08:41→16:32)
--- NOTE | 2017-05-26 08:47 | US ---
PROCEDURE: Bilateral lower extremity venous duplex Doppler. HISTORY: COMPARISON: None available. TECHNIQUE: Bilateral common femoral, superficial femoral, popliteal and posterior tibial veins were evaluated. Flow was assessed with color Doppler, compressibility, assessment of phasic flow and augmentation response. FINDINGS: COMMON FEMORAL VEIN: Right CFV: Unremarkable. Left CFV: Unremarkable. SUPERFICIAL FEMORAL VEIN: Right SFV: Unremarkable. Left SFV: Unremarkable. POPLITEAL VEIN: Right Popliteal: Unremarkable. Left Popliteal: Unremarkable. POSTERIOR TIBIAL VEIN: Right PTV: Unremarkable. Left PTV: Unremarkable. OTHER FINDINGS: None. IMPRESSION: No evidence of deep venous thrombosis.
--- NOTE | 2017-05-26 09:18 | CP.PCM.PN ---
Subjective - Date & Time of Evaluation Date of Evaluation: 05/26/17 Time of Evaluation: 09:16 - Subjective Subjective: Interim events reviewed. Remains in ICU on NPPV with HFNC. Was restless for a time yesterday, and Haldol was ordered but not needed. Labs noted, CO2 decreased to 38 from 45 (acetazolamide started yesterday). Hemoglobin down to 9GM from 10. No leukocytosis, platelets stable. SpO2 100% on 40% O2 @ 35LPM. Remains on milrinone with stable VS. Negative fluid balance maintained. CXR suggests accumulating effusion again on the right. Dependant edema +, no cyanosis. Extremities are warm to touch. Awake and cooperative, answers questions appropriately. Neck is supple and trachea is midline. No dullness to percussion of the anterior chest wall. Decreased breath sounds bilaterally, especially posteriorly RLL. Medium rales with sonorous and sibilant rhonchi both LL's, more L>R. No audible wheezes or bronchial breath sounds. Discussed with cardiology, will request IR eval for tap on the right. High flow readjusted; flow up to 38 and O2 down to 35. Will continue to monitor VS and labs. Medication unchanged for now. ICU time 30min. Objective - Vital Signs/Intake and Output Vital Signs (last 24 hours): Temp Pulse Resp BP Pulse Ox 97.6 F 80 26 H 130/60 100 05/26/17 08:00 05/26/17 08:36 05/26/17 08:00 05/26/17 08:36 05/26/17 08:00 Intake and Output: 05/25/17 05/26/17 23:59 11:59 Intake Total 999 86 Output Total 800 700 Balance 199 -614 - Medications Medications: Current Medications Acetaminophen (Tylenol 325mg Tab) 325 mg PO Q6H PRN PRN Reason: Headache Last Admin: 05/24/17 14:44 Dose: 325 mg Acetazolamide (Diamox 250 Mg Tab) 250 mg PO BIDWM [facility] Last Admin: 05/26/17 08:38 Dose: 250 mg Allopurinol (Zyloprim) 100 mg PO DAILY [facility] Last Admin: 05/26/17 08:38 Dose: 100 mg Benzonatate (Tessalon Perles) 200 mg PO TID PRN PRN Reason: Cough Last Admin: 05/25/17 16:26 Dose: 200 mg Carvedilol (Coreg) 3.125 mg PO Q12 [facility] Last Admin: 05/26/17 08:36 Dose: 3.125 mg Ferrous Sulfate (Feosol) 325 mg PO BID [facility] Last Admin: 05/26/17 08:38 Dose: 325 mg Furosemide (Lasix) 60 mg IV Q12 [facility] Last Admin: 05/25/17 20:36 Dose: 60 mg Glipizide (Glucotrol) 10 mg PO BIDAC [facility] Last Admin: 05/26/17 07:13 Dose: Not Given Haloperidol Lactate (Haldol) 1 mg IVP ONCE [facility] Home Med (Cyclosporine [Restasis]) 1 drop BOTHEYES BID [facility] Last Admin: 05/26/17 08:35 Dose: 1 drop Home Med (Dorzolamide 2%/Timolol 0.5% [Cosopt 2%-0.5% Opht]) 1 drop EACHEYE BID [facility] Last Admin: 05/26/17 08:36 Dose: 1 drop Home Med (Tafluprost/Pf [Zioptan 0.0015% Eye Drops]) 1 drop EACHEYE HS [facility] Last Admin: 05/25/17 21:18 Dose: 1 drop Hydrocortisone (Anusol-Hc) 1 applic [place] BID [facility] Last Admin: 05/26/17 08:38 Dose: 1 applic Milrinone Lactate/Dextrose (Primacor 20mg/100ml D5w) 100 mls @ 4.355 mls/hr IV .[id number] [facility]; 0.2 MCG/KG/MIN PRN Reason: Protocol Last Admin: 05/25/17 16:19 Dose: 0.2 mcg/kg/min, 4.355 mls/hr Insulin Human Regular (Humulin R) 0 units SC ACHS [facility] PRN Reason: Protocol Last Admin: 05/25/17 22:00 Dose: Not Given Levalbuterol HCl (Xopenex) 0.63 mg INH RQ8 [facility] Last Admin: 05/26/17 08:00 Dose: 0.63 mg Levalbuterol HCl (Xopenex) 0.63 mg INH RQ8 PRN PRN Reason: Shortness of Breath Last Admin: 05/25/17 02:39 Dose: 0.63 mg Multivitamins/Minerals (Therapeutic-M Tab) 1 tab PO DAILY [facility] Last Admin: 05/26/17 08:38 Dose: 1 tab Pantoprazole Sodium (Protonix Inj) 40 mg IVP DAILY [facility] Last Admin: 05/26/17 08:39 Dose: 40 mg Saccharomyces Boulardii (Florastor) 250 mg PO BID [facility] Last Admin: 05/26/17 08:41 Dose: 250 mg Sitagliptin Phosphate (Januvia) 50 mg PO DAILY [facility] Last Admin: 05/26/17 08:39 Dose: 50 mg - Labs Labs: 05/26/17 04:20 05/26/17 04:20 PT 15.2 Seconds (9.8-13.1) H D 05/24/17 04:10 INR 1.5 (0.9-1.2) H D 05/24/17 04:10 APTT 33.4 Seconds (25.6-37.1) 05/24/17 04:10 Assessment and Plan (1) Chronic respiratory failure with hypoxia and hypercapnia Status: Chronic (2) CHF (congestive heart failure) Status: Chronic (3) COPD (chronic obstructive pulmonary disease) Status: Chronic (4) Pulmonary hypertension Status: Chronic
[2017-05-26] MEDS: Insulin Regular 100 units/ml SC SCH ×4 (09:48→21:22)
--- NOTE | 2017-05-26 09:57 | CP.PCM.PN ---
Subjective - Date & Time of Evaluation Date of Evaluation: 05/26/17 Time of Evaluation: 09:00 - Subjective Subjective: Events over the weekend reviewed Spoke with Drs. Edwards/ Martir and Jeremias. Hyper CO2 was Rxed with hiflow O2 delivery Milrinone was used as inotrop IV Lasix for diuresis Pt now awake, mildly confused VVI paced rhythm at 72 BPM BP 120/70 mm Hg Poor air entry at [employer] (? pleural effusion) Chest x ray reviewed with Dr Mcmahan Will have IR see pt for poss rt pleural tap Few options available to treat this pt with advanced CHF and COPD Family is aware of this Objective - Vital Signs/Intake and Output Vital Signs (last 24 hours): Temp Pulse Resp BP Pulse Ox 97.6 F 75 19 120/53 L 99 05/26/17 08:00 05/26/17 09:00 05/26/17 09:00 05/26/17 09:24 05/26/17 09:00 Intake and Output: 05/26/17 05/26/17 06:59 18:59 Intake Total 195 50 Output Total 700 Balance -505 50 - Medications Medications: Current Medications Acetaminophen (Tylenol 325mg Tab) 325 mg PO Q6H PRN PRN Reason: Headache Last Admin: 05/24/17 14:44 Dose: 325 mg Acetazolamide (Diamox 250 Mg Tab) 250 mg PO BIDWM [facility] Last Admin: 05/26/17 08:38 Dose: 250 mg Allopurinol (Zyloprim) 100 mg PO DAILY [facility] Last Admin: 05/26/17 08:38 Dose: 100 mg Benzonatate (Tessalon Perles) 200 mg PO TID PRN PRN Reason: Cough Last Admin: 05/25/17 16:26 Dose: 200 mg Carvedilol (Coreg) 3.125 mg PO Q12 [facility] Last Admin: 05/26/17 08:36 Dose: 3.125 mg Ferrous Sulfate (Feosol) 325 mg PO BID [facility] Last Admin: 05/26/17 08:38 Dose: 325 mg Furosemide (Lasix) 60 mg IV Q12 [facility] Last Admin: 05/26/17 09:24 Dose: 60 mg Glipizide (Glucotrol) 10 mg PO BIDAC [facility] Last Admin: 05/26/17 07:13 Dose: Not Given Haloperidol Lactate (Haldol) 1 mg IVP ONCE [facility] Home Med (Cyclosporine [Restasis]) 1 drop BOTHEYES BID [facility] Last Admin: 05/26/17 08:35 Dose: 1 drop Home Med (Dorzolamide 2%/Timolol 0.5% [Cosopt 2%-0.5% Opht]) 1 drop EACHEYE BID [facility] Last Admin: 05/26/17 08:36 Dose: 1 drop Home Med (Tafluprost/Pf [Zioptan 0.0015% Eye Drops]) 1 drop EACHEYE HS [facility] Last Admin: 05/25/17 21:18 Dose: 1 drop Hydrocortisone (Anusol-Hc) 1 applic [place] BID [facility] Last Admin: 05/26/17 08:38 Dose: 1 applic Milrinone Lactate/Dextrose (Primacor 20mg/100ml D5w) 100 mls @ 4.355 mls/hr IV .[id number] [facility]; 0.2 MCG/KG/MIN PRN Reason: Protocol Last Admin: 05/25/17 16:19 Dose: 0.2 mcg/kg/min, 4.355 mls/hr Insulin Human Regular (Humulin R) 0 units SC ACHS [facility] PRN Reason: Protocol Last Admin: 05/26/17 09:48 Dose: Not Given Levalbuterol HCl (Xopenex) 0.63 mg INH RQ8 [facility] Last Admin: 05/26/17 08:00 Dose: 0.63 mg Levalbuterol HCl (Xopenex) 0.63 mg INH RQ8 PRN PRN Reason: Shortness of Breath Last Admin: 05/25/17 02:39 Dose: 0.63 mg Multivitamins/Minerals (Therapeutic-M Tab) 1 tab PO DAILY [facility] Last Admin: 05/26/17 08:38 Dose: 1 tab Pantoprazole Sodium (Protonix Inj) 40 mg IVP DAILY [facility] [place] Last Admin: 05/26/17 08:39 Dose: 40 mg Saccharomyces Boulardii (Florastor) 250 mg PO BID [facility] [place] Last Admin: 05/26/17 08:41 Dose: 250 mg Sitagliptin Phosphate (Januvia) 50 mg PO DAILY [facility] [place] Last Admin: 05/26/17 08:39 Dose: 50 mg - Labs Labs: 05/26/17 04:20 05/26/17 04:20 PT 15.2 Seconds (9.8-13.1) H D 05/24/17 04:10 INR 1.5 (0.9-1.2) H D 05/24/17 04:10 APTT 33.4 Seconds (25.6-37.1) 05/24/17 04:10
[2017-05-26] MEDS: Milrinone 20mg/100ml D5W 100 ML IV SCH (14:57)
--- NOTE | 2017-05-26 19:48 | PN ---
ENDO FOLLOWUP NOTE LOCATION: Room 421, ICU. This is an 87-year-old female with recent uncontrolled type 2 diabetes presenting here with congestive heart failure and pulmonary edema, and is now being followed closely for metabolic management. Her glycemic levels are fluctuating but improved and the latest glucose levels have ranged from 185 to 209 and 247 mg/dL. Her latest chemistry showed a BUN of 29, sodium 145, potassium 3.5, chloride 96, CO2 of 38, glucose 167 and creatinine 1.2. Her hemoglobin A1c is 7.1% as noticed. So at this time, we will continue the same dual oral hypoglycemic drug therapy as given with glipizide given at 10 mg b.i.d. before meals as ordered and Januvia given at 50 mg once daily as given. We will continue the low-dose correction scale using regular insulin as ordered. We will titrate incrementally as indicated to optimize metabolic control. We will follow and advise accordingly. Lauryn Chandra MD
[2017-05-26] MEDS: TAFLUPROST EACHEYE SCH (21:20)
[2017-05-27 05:35] LABS: HEMATOCRIT 29.6 % (34.0-47.0); MEAN CELL VOLUME 103.8 fl (81.0-99.0); MEAN CORPUSCULAR HEMOGLOBIN 32.4 pg (27.0-31.0); MEAN CORPUSCULAR HGB CONC 31.2 g/dL (33.0-37.0); RED CELL DISTRIBUTION WIDTH 18.9 % (11.5-14.5)
[2017-05-27 05:38] LABS: CALCIUM 8.9 mg/dL (8.4-10.2); POTASSIUM 3.7 MMOL/L (3.6-5.0)
[2017-05-27] MEDS: Insulin Regular 100 units/ml SC SCH ×3 (06:46→16:24)
[2017-05-27] MEDS: Levalbuterol 0.63 MG/3 ML Inhal Soln UD INH SCH ×2 (08:00→15:32)
--- NOTE | 2017-05-27 08:56 | CP.PCM.PN ---
Subjective - Date & Time of Evaluation Date of Evaluation: 05/27/17 Time of Evaluation: 08:53 - Subjective Subjective: Awake, maybe a little more confused. Sitting up in bed, being fed breakfast. Vital signs remain stable, she is still on milrinone infusion. On HFNC at 40% O2 and 38LPM, SpO2 95%. No tap done yesterday, having AM CXR done now. AM labs remain stable. LUE still slightly edematous, but less than yesterday. No cyanosis, no visible JVD. Trachea midline. Dependant edema + but also less than the day before. No dullness on percussion of the anterior chest wall. Breath sounds are diminished bilaterally, absent in the R base posteriorly. Medium rales with sonorous rhonchi in the LLL. No wheezes. Abdomen is soft with normal bowel sounds. The CXR done just now looks very much the same as yesterday with relatively small effusion on the right. Marked cardiomegaly has been unchanged on all the x-rays. Maintain current medical regimen. Encourage cough. OOB to chair if possible today. Keep SpO2 between 90-95%. Avoid sedation if possible. ICU time 30min Objective - Vital Signs/Intake and Output Vital Signs (last 24 hours): Temp Pulse Resp BP Pulse Ox 97.9 F 75 11 L 108/55 L 98 05/27/17 08:00 05/27/17 08:00 05/27/17 08:00 05/27/17 08:00 05/27/17 08:00 Intake and Output: 05/26/17 05/27/17 23:59 11:59 Intake Total 838 27 Output Total 700 Balance 138 27 - Medications Medications: Current Medications Acetaminophen (Tylenol 325mg Tab) 325 mg PO Q6H PRN PRN Reason: Headache Last Admin: 05/26/17 18:16 Dose: 325 mg Acetazolamide (Diamox 250 Mg Tab) 250 mg PO BIDWM [facility] Last Admin: 05/26/17 18:01 Dose: 250 mg Allopurinol (Zyloprim) 100 mg PO DAILY [facility] Last Admin: 05/26/17 08:38 Dose: 100 mg Benzonatate (Tessalon Perles) 200 mg PO TID PRN PRN Reason: Cough Last Admin: 05/25/17 16:26 Dose: 200 mg Carvedilol (Coreg) 3.125 mg PO Q12 [facility] Last Admin: 05/26/17 20:32 Dose: 3.125 mg Ferrous Sulfate (Feosol) 325 mg PO BID [facility] Last Admin: 05/26/17 16:32 Dose: 325 mg Furosemide (Lasix) 60 mg IV Q12 [facility] Last Admin: 05/26/17 20:33 Dose: 60 mg Glipizide (Glucotrol) 10 mg PO BIDAC [facility] Last Admin: 05/27/17 06:48 Dose: Not Given Haloperidol Lactate (Haldol) 1 mg IVP ONCE [facility] Home Med (Cyclosporine [Restasis]) 1 drop BOTHEYES BID [facility] Last Admin: 05/26/17 16:37 Dose: 1 drop Home Med (Dorzolamide 2%/Timolol 0.5% [Cosopt 2%-0.5% Opht]) 1 drop EACHEYE BID [facility] Last Admin: 05/26/17 16:30 Dose: 1 drop Home Med (Tafluprost/Pf [Zioptan 0.0015% Eye Drops]) 1 drop EACHEYE HS [facility] Last Admin: 05/26/17 21:20 Dose: 1 drop Hydrocortisone (Anusol-Hc) 1 applic [place] BID [facility] Last Admin: 05/26/17 16:31 Dose: 1 applic Milrinone Lactate/Dextrose (Primacor 20mg/100ml D5w) 100 mls @ 4.355 mls/hr IV .[id number] [facility]; 0.2 MCG/KG/MIN PRN Reason: Protocol Last Admin: 05/26/17 14:57 Dose: 0.2 mcg/kg/min, 4.355 mls/hr Insulin Detemir (Levemir) 6 units SC DAILY [facility] Insulin Human Regular (Humulin R) 0 units SC ACHS [facility] PRN Reason: Protocol Last Admin: 05/27/17 06:46 Dose: Not Given Levalbuterol HCl (Xopenex) 0.63 mg INH RQ8 [facility] Last Admin: 05/27/17 08:00 Dose: 0.63 mg Levalbuterol HCl (Xopenex) 0.63 mg INH RQ8 PRN PRN Reason: Shortness of Breath Last Admin: 05/25/17 02:39 Dose: 0.63 mg Multivitamins/Minerals (Therapeutic-M Tab) 1 tab PO DAILY [facility] Last Admin: 05/26/17 08:38 Dose: 1 tab Pantoprazole Sodium (Protonix Inj) 40 mg IVP DAILY [facility] Last Admin: 05/26/17 08:39 Dose: 40 mg Saccharomyces Boulardii (Florastor) 250 mg PO BID [facility] Last Admin: 05/26/17 16:32 Dose: 250 mg Sitagliptin Phosphate (Januvia) 50 mg PO DAILY [facility] Last Admin: 05/26/17 08:39 Dose: 50 mg - Labs Labs: 05/27/17 04:20 05/27/17 04:20 PT 15.2 Seconds (9.8-13.1) H D 05/24/17 04:10 INR 1.5 (0.9-1.2) H D 05/24/17 04:10 APTT 33.4 Seconds (25.6-37.1) 05/24/17 04:10 Assessment and Plan (1) Chronic respiratory failure with hypoxia and hypercapnia Status: Chronic (2) CHF (congestive heart failure) Status: Chronic (3) COPD (chronic obstructive pulmonary disease) Status: Chronic (4) Pulmonary hypertension Status: Chronic
--- NOTE | 2017-05-27 08:58 | HP ---
Subjective - Date & Time of Evaluation Date of Evaluation: 05/24/17 Time of Evaluation: 08:00 - Subjective Subjective: Chief Complaint: 87 y/o w/f transferred from TCU 2* Respiratory distress History of Present Illness: Acute Hypercapneic Resp Failure 2 Decompensated L-CHF / Cardiomyopathy Chronic A fib on AC Chronic Disease Anemia / Thrombocytopenia Dementia / Delirium DM II LV dysfunction w/ EF 10% congestive cardiac failure which is left ventricular chronic and systolic ( LVEF was approximately 10%) with severe mitral regurgitation. PMH: Chronic A fib-on AC, CABG, AICD, Pericardiectomy in 90s, HTN, UGIB, DM II, Dementia, COPD, chronic disease anemia. Objective - Vital Signs/Intake and Output Vital Signs (last 24 hours): Temp Pulse Resp BP Pulse Ox 97.6 F 78 15 104/48 L 100 05/24/17 08:00 05/24/17 08:00 05/24/17 08:00 05/24/17 08:10 05/24/17 08:00 Intake and Output: 05/24/17 05/24/17 06:59 18:59 Intake Total 48 8 Balance 48 8 - Medications Medications: Current Medications Albuterol/Ipratropium (Duoneb 3 Mg/0.5 Mg (3 Ml) Ud) 3 ml INH RQ6 PRN PRN Reason: Shortness of Breath Carvedilol (Coreg) 3.125 mg PO Q12 [facility] Last Admin: 05/23/17 21:44 Dose: Not Given Furosemide (Lasix) 60 mg IV Q12 [facility] Last Admin: 05/24/17 08:10 Dose: 60 mg Milrinone Lactate/Dextrose (Primacor 20mg/100ml D5w) 100 mls @ 4.355 mls/hr IV .[id number] [facility]; 0.2 MCG/KG/MIN PRN Reason: Protocol Levalbuterol HCl (Xopenex) 0.63 mg INH RQ8 [facility] Last Admin: 05/24/17 07:38 Dose: 0.63 mg Pantoprazole Sodium (Protonix Inj) 40 mg IVP DAILY [facility] Last Admin: 05/24/17 08:10 Dose: 40 mg - Labs Labs: 05/24/17 04:10 05/24/17 04:10 PT 15.2 Seconds (9.8-13.1) H D 05/24/17 04:10 INR 1.5 (0.9-1.2) H D 05/24/17 04:10 APTT 33.4 Seconds (25.6-37.1) 05/24/17 04:10 Assessment and Plan : (1) CHF (congestive heart failure) Status: Acute (2) Hypercarbia Status: Acute (3) Dyspnea Status: Acute (4) Atrial fibrillation with controlled ventricular response Status: Chronic (5) COPD (chronic obstructive pulmonary disease) Status: Chronic (6) Cardiomyopathy Status: Chronic (7) Pulmonary hypertension Status: Chronic Admit to Inpatient Int[facility] Care [facility]
[2017-05-27] MEDS: Hydrocortisone 2.5% (Rectal) CREAM PR SCH ×2 (09:11→16:21)
[2017-05-27] MEDS: Patient's Own Med (Cyclosporine [Restasis] 1 DROP) BOTHEYES SCH ×2 (09:18→16:22)
[2017-05-27] MEDS: Patient's Own Med (Dorzolamide 2%/Timolol 0.5% [Cosopt 2%-0.5% Opht] 1 DROP) EACHEYE SCH ×2 (09:19→16:22)
[2017-05-27] MEDS: Saccharomyces Boulardi 250 mg Cap PO SCH ×2 (09:20→16:23)
[2017-05-27] MEDS: Insulin Detemir 100 Units/ml Inj SC SCH (09:22)
[2017-05-27] MEDS: Multivitamin With Minerals Tab PO SCH (09:23)
--- NOTE | 2017-05-27 10:00 | RAD ---
HISTORY: SOB COMPARISON: Portable chest 05/25/2017. FINDINGS: Pacemaker deployment again evident as well as or friend pacemaker leads in the right chest. LUNGS: Right pleural effusion and infiltrate persists with history volume somewhat diminished in the interval. No left-sided infiltrate. PLEURA: No pneumothorax apparent. CARDIOVASCULAR: Cardiomegaly appears stable with borderline pulmonary venous congestion. OSSEOUS STRUCTURES: No significant abnormalities. VISUALIZED UPPER ABDOMEN: Normal. OTHER FINDINGS: None. IMPRESSION: No significant interval change in right basilar infiltrate/ pleural effusion as discussed above. Borderline CHF pattern.
--- NOTE | 2017-05-27 12:55 | CP.CCUPN ---
CCU Objective - Vital Signs / Intake & Output Vital Signs (Last 4 hours): Vital Signs Temp Pulse Resp BP Pulse Ox 05/27/17 12:00 97.7 F 85 17 125/60 99 05/27/17 10:00 71 21 113/55 L 95 05/27/17 09:21 112/58 L 05/27/17 09:11 77 101/49 L Intake and Output (Last 8hrs): Intake & Output 05/26/17 05/27/17 05/27/17 22:59 06:59 14:59 Intake Total 478 27 675 Output Total 700 300 Balance -222 27 375 Intake: IV 18 27 25 Oral 460 650 Output: Urine 700 300 Urethral (Mackey) 700 300 Other: # Bowel Movements 2 - Physical Exam Head: Positive for: Normocephalic Pupils: Positive for: PERRL Extroacular Muscles: Positive for: EOMI Conjunctiva: Positive for: Normal. Negative for: Icteric Pharnyx: Positive for: Normal, Other (loose dentures noted.) Neck: Positive for: Normal Range of Motion, JVD. Negative for: Bruit Respiratory/Chest: Positive for: Clear to Auscultation, Rales. Negative for: Accessory Muscle Use, Wheezes Cardiovascular: Positive for: Regular Rate and Rhythm (Paced), Murmurs (+2 apical systolic murmur), Irregular Rhythm, Peripheal Pulses Present. Negative for: Rub Abdomen: Positive for: Normal Bowel Sounds. Negative for: Tenderness, Distention Upper Extremity: Positive for: Edema Lower Extremity: Positive for: Edema. Negative for: CALF TENDERNESS, Cyanosis Neurological: Positive for: Motor Func Grossly Intact Skin: Positive for: Warm. Negative for: Rashes Psychiatric: Positive for: Lethargic - Medications Active Medications: Active Medications Generic Name Dose Route Start Last Admin Trade Name Freq PRN Reason Stop Dose Admin Acetaminophen 325 mg 05/24/17 12:33 05/27/17 11:34 Tylenol 325mg Tab PO 325 mg Q6H PRN Administration Headache Acetazolamide 250 mg 05/25/17 10:00 05/27/17 09:19 Diamox 250 Mg Tab PO 250 mg BIDWM [facility] Administration Allopurinol 100 mg 05/25/17 09:00 05/27/17 09:23 Zyloprim PO 100 mg DAILY [facility] Administration Benzonatate 200 mg 05/24/17 12:33 05/25/17 16:26 Tessalon Perles PO 200 mg TID PRN Administration Cough Carvedilol 3.125 mg 05/23/17 21:00 05/27/17 09:11 Coreg PO 3.125 mg Q12 [facility] Administration Ferrous Sulfate 325 mg 05/24/17 17:00 05/27/17 09:20 Feosol PO 325 mg BID [facility] Administration Furosemide 60 mg 05/23/17 21:00 05/27/17 09:21 Lasix IV 60 mg Q12 [facility] Administration Glipizide 10 mg 05/25/17 16:30 05/27/17 06:48 Glucotrol PO Not Given BIDAC [facility] Haloperidol Lactate 1 mg 05/25/17 11:15 Haldol IVP ONCE [facility] Home Med 1 drop 05/24/17 17:00 05/27/17 09:18 Cyclosporine [Restasis] BOTHEYES 1 drop BID [facility] Administration Home Med 1 drop 05/24/17 17:00 05/27/17 09:19 Dorzolamide 2%/Timolol 0.5% [Cosopt 2%-0.5% Opht] EACHEYE 1 drop BID [facility] Administration Home Med 1 drop 05/24/17 22:00 05/26/17 21:20 Tafluprost/Pf [Zioptan 0.0015% Eye Drops] EACHEYE 1 drop HS [facility] Administration Hydrocortisone 1 applic 05/24/17 17:00 05/27/17 09:11 Anusol-Hc MS 1 applic BID [facility] Administration Milrinone Lactate/Dextrose 100 mls @ 4.355 mls/hr 05/23/17 16:39 05/26/17 14: 57 Primacor 20mg/100ml D5w IV 0.2 mcg/kg/min .[id number] [facility] 4.355 mls/hr Protocol Administration 0.2 MCG/KG/MIN Insulin Detemir 6 units 05/27/17 09:00 05/27/17 09:22 Levemir SC 6 units DAILY [facility] Administration Insulin Human Regular 0 units 05/25/17 16:30 05/27/17 11:46 Humulin R SC 4 units ACHS [facility] Administration Protocol Levalbuterol HCl 0.63 mg 05/23/17 21:00 05/27/17 08:00 Xopenex INH 0.63 mg RQ8 [facility] Administration Levalbuterol HCl 0.63 mg 05/24/17 12:40 05/25/17 02:39 Xopenex INH 0.63 mg RQ8 PRN Administration Shortness of Breath Multivitamins/Minerals 1 tab 05/25/17 09:00 05/27/17 09:23 Therapeutic-M Tab PO 1 tab DAILY [facility] Administration Pantoprazole Sodium 40 mg 05/23/17 16:15 05/27/17 09:23 Protonix Inj IVP 40 mg DAILY [facility] Administration Saccharomyces Boulardii 250 mg 05/24/17 17:00 05/27/17 09:20 Florastor PO 250 mg BID [facility] Administration Sitagliptin Phosphate 50 mg 05/25/17 09:00 05/27/17 09:21 Januvia PO 50 mg DAILY [facility] Administration - Patient Studies Lab Studies: Lab Studies 05/27/17 05/27/17 05/27/17 Range/Units 11:41 05:33 04:20 WBC (4.8-10.8) K/uL RBC (3.80-5.20) Mil/uL Hgb (12.0-16.0) g/dL Hct (34.0-47.0) % MCV (81.0-99.0) fl MCH (27.0-31.0) pg MCHC (33.0-37.0) g/dL RDW (11.5-14.5) % Plt Count (130-400) K/uL Sodium 143 (132-148) mmol/l Potassium 3.7 (3.6-5.0) MMOL/L Chloride 97 L (98-107) mmol/L Carbon Dioxide 38 H (22-30) mmol/L Anion Gap 12 (10-20) BUN 28 H (7-17) mg/dl Creatinine 1.1 (0.7-1.2) mg/dL Est GFR ( Amer) 57 Est GFR (Non-Af Amer) 47 POC Glucose (mg/dL) 302 H 178 H (65-110) mg/dL Random Glucose 153 H (65-105) mg/dL Calcium 8.9 (8.4-10.2) mg/dL 05/27/17 05/26/17 05/26/17 Range/Units 04:20 21:21 16:29 WBC 6.0 (4.8-10.8) K/uL RBC 2.85 L (3.80-5.20) Mil/uL Hgb 9.2 L (12.0-16.0) g/dL Hct 29.6 L (34.0-47.0) % MCV 103.8 H (81.0-99.0) fl MCH 32.4 H (27.0-31.0) pg MCHC 31.2 L (33.0-37.0) g/dL RDW 18.9 H (11.5-14.5) % Plt Count 120 L (130-400) K/uL Sodium (132-148) mmol/l Potassium (3.6-5.0) MMOL/L Chloride (98-107) mmol/L Carbon Dioxide (22-30) mmol/L Anion Gap (10-20) BUN (7-17) mg/dl Creatinine (0.7-1.2) mg/dL Est GFR ( Amer) Est GFR (Non-Af Amer) POC Glucose (mg/dL) 232 H 247 H (65-110) mg/dL Random Glucose (65-105) mg/dL Calcium (8.4-10.2) mg/dL Laboratory Results - last 24 hr 05/26/17 05/26/17 05/27/17 16:29 21:21 04:20 WBC 6.0 RBC 2.85 L Hgb 9.2 L Hct 29.6 L MCV 103.8 H MCH 32.4 H MCHC 31.2 L RDW 18.9 H Plt Count 120 L Sodium Potassium Chloride Carbon Dioxide Anion Gap BUN Creatinine Est GFR ( Amer) Est GFR (Non-Af Amer) POC Glucose (mg/dL) 247 H 232 H Random Glucose Calcium 05/27/17 05/27/17 05/27/17 04:20 05:33 11:41 WBC RBC Hgb Hct MCV MCH MCHC RDW Plt Count Sodium 143 Potassium 3.7 Chloride 97 L Carbon Dioxide 38 H Anion Gap 12 BUN 28 H Creatinine 1.1 Est GFR ( Amer) 57 Est GFR (Non-Af Amer) 47 POC Glucose (mg/dL) 178 H 302 H Random Glucose 153 H Calcium 8.9 Fingerstick Blood Sugar Results: 302 Critical Care Progress Note - Nutrition Nutrition: Nutrition Category Date Time Status Dysphagia/Modified Consistency Diet [DIET] Diets 05/23/17 Dinner Active
--- NOTE | 2017-05-27 13:45 | CP.PCM.PN ---
Subjective - Date & Time of Evaluation Date of Evaluation: 05/27/17 Time of Evaluation: 08:30 - Subjective Subjective: Remains exhausted mildly dyspnoic at rest Resp rate 18-20 BPM Pulse ox 97% on Hiflow oxygen delivery VVI paced rhythm at 64 BPM BP 100/70 (On Milrinone) Bilat rhonchi, no crepts Apical syst murmur of MR+ Chest x-ray today Essentially unchanged since yesterday Present Rx to continue Spoke with pt's daughter Glory at length re pt's precarious cardiac and pulm status Explained to her that clear instructions re "code status" need to be given to Doctors and Nurses She has expressed interest in "DNR" Promises to speak with her siblings and decide this matter Objective - Vital Signs/Intake and Output Vital Signs (last 24 hours): Temp Pulse Resp BP Pulse Ox 97.7 F 85 17 125/60 99 05/27/17 12:00 05/27/17 12:00 05/27/17 12:00 05/27/17 12:00 05/27/17 12:00 Intake and Output: 05/27/17 05/27/17 06:59 18:59 Intake Total 145 675 Output Total 300 Balance 145 375 - Medications Medications: Current Medications Acetaminophen (Tylenol 325mg Tab) 325 mg PO Q6H PRN PRN Reason: Headache Last Admin: 05/27/17 11:34 Dose: 325 mg Acetazolamide (Diamox 250 Mg Tab) 250 mg PO BIDWM [facility] Last Admin: 05/27/17 09:19 Dose: 250 mg Allopurinol (Zyloprim) 100 mg PO DAILY [facility] Last Admin: 05/27/17 09:23 Dose: 100 mg Benzonatate (Tessalon Perles) 200 mg PO TID PRN PRN Reason: Cough Last Admin: 05/25/17 16:26 Dose: 200 mg Carvedilol (Coreg) 3.125 mg PO Q12 [facility] Last Admin: 05/27/17 09:11 Dose: 3.125 mg Ferrous Sulfate (Feosol) 325 mg PO BID [facility] Last Admin: 05/27/17 09:20 Dose: 325 mg Furosemide (Lasix) 60 mg IV Q12 [facility] Last Admin: 05/27/17 09:21 Dose: 60 mg Glipizide (Glucotrol) 10 mg PO BIDAC [facility] Last Admin: 05/27/17 06:48 Dose: Not Given Haloperidol Lactate (Haldol) 1 mg IVP ONCE [facility] Home Med (Cyclosporine [Restasis]) 1 drop BOTHEYES BID [facility] Last Admin: 05/27/17 09:18 Dose: 1 drop Home Med (Dorzolamide 2%/Timolol 0.5% [Cosopt 2%-0.5% Opht]) 1 drop EACHEYE BID [facility] Last Admin: 05/27/17 09:19 Dose: 1 drop Home Med (Tafluprost/Pf [Zioptan 0.0015% Eye Drops]) 1 drop EACHEYE HS [facility] Last Admin: 05/26/17 21:20 Dose: 1 drop Hydrocortisone (Anusol-Hc) 1 applic [place] BID [facility] Last Admin: 05/27/17 09:11 Dose: 1 applic Milrinone Lactate/Dextrose (Primacor 20mg/100ml D5w) 100 mls @ 4.355 mls/hr IV .[id number] [facility]; 0.2 MCG/KG/MIN PRN Reason: Protocol Last Admin: 05/26/17 14:57 Dose: 0.2 mcg/kg/min, 4.355 mls/hr Insulin Detemir (Levemir) 6 units SC DAILY [facility] Last Admin: 05/27/17 09:22 Dose: 6 units Insulin Human Regular (Humulin R) 0 units SC ACHS [facility] PRN Reason: Protocol Last Admin: 05/27/17 11:46 Dose: 4 units Levalbuterol HCl (Xopenex) 0.63 mg INH RQ8 [facility] Last Admin: 05/27/17 08:00 Dose: 0.63 mg Levalbuterol HCl (Xopenex) 0.63 mg INH RQ8 PRN PRN Reason: Shortness of Breath Last Admin: 05/25/17 02:39 Dose: 0.63 mg Multivitamins/Minerals (Therapeutic-M Tab) 1 tab PO DAILY [facility] Last Admin: 05/27/17 09:23 Dose: 1 tab Pantoprazole Sodium (Protonix Inj) 40 mg IVP DAILY [facility] Last Admin: 05/27/17 09:23 Dose: 40 mg Saccharomyces Boulardii (Florastor) 250 mg PO BID [facility] Last Admin: 05/27/17 09:20 Dose: 250 mg Sitagliptin Phosphate (Januvia) 50 mg PO DAILY [facility] Last Admin: 05/27/17 09:21 Dose: 50 mg - Labs Labs: 05/27/17 04:20 05/27/17 04:20 PT 15.2 Seconds (9.8-13.1) H D 05/24/17 04:10 INR 1.5 (0.9-1.2) H D 05/24/17 04:10 APTT 33.4 Seconds (25.6-37.1) 05/24/17 04:10
--- NOTE | 2017-05-27 15:54 | CP.CCUPN ---
<Ami Arias - Last Filed: 05/27/17 15:31> CCU Subjective - Physician Review Subjective (Free Text): 05/27/17 15:31 Patient seen and examined at bedside, somnolent but arousable, responds verbally. Oriented to self. On 38L supplemental O2 -high flow with FiO2 40%. CCU Objective - Vital Signs / Intake & Output Vital Signs (Last 4 hours): Vital Signs Temp Pulse Resp BP Pulse Ox 05/27/17 14:00 76 16 97/39 L 99 05/27/17 12:00 97.7 F 85 17 125/60 99 Intake and Output (Last 8hrs): Intake & Output 05/27/17 05/27/17 05/27/17 06:59 14:59 22:59 Intake Total 27 825 Output Total 400 Balance 27 425 Intake: IV 27 25 Oral 800 Output: Urine 400 Urethral (Mackey) 400 Other: # Bowel Movements 2 - Physical Exam Head: Positive for: Normocephalic Pupils: Positive for: PERRL Extroacular Muscles: Positive for: EOMI Conjunctiva: Positive for: Normal. Negative for: Icteric Mouth: Positive for: Moist Mucous Membranes Pharnyx: Positive for: Normal Neck: Positive for: Normal Range of Motion, JVD. Negative for: Bruit Respiratory/Chest: Positive for: Respiratory Distress (mild dyspnea), Rhonchi ( bilateral). Negative for: Accessory Muscle Use, Wheezes Cardiovascular: Positive for: Regular Rate and Rhythm (Paced), Murmurs ( systolic murmur), Irregular Rhythm, Peripheal Pulses Present. Negative for: Rub Abdomen: Positive for: Normal Bowel Sounds. Negative for: Tenderness, Distention Upper Extremity: Positive for: Edema Lower Extremity: Positive for: Edema. Negative for: CALF TENDERNESS, Cyanosis Neurological: Positive for: Motor Func Grossly Intact Skin: Positive for: Warm, Pale. Negative for: Rashes Psychiatric: Positive for: Other (somnolent, arousable) - Medications Active Medications: Active Medications Generic Name Dose Route Start Last Admin Trade Name Freq PRN Reason Stop Dose Admin Acetaminophen 325 mg 05/24/17 12:33 05/27/17 11:34 Tylenol 325mg Tab PO 325 mg Q6H PRN Administration Headache Acetazolamide 250 mg 05/25/17 10:00 05/27/17 09:19 Diamox 250 Mg Tab PO 250 mg BIDWM SOLIS Administration Allopurinol 100 mg 05/25/17 09:00 05/27/17 09:23 Zyloprim PO 100 mg DAILY SOLIS Administration Benzonatate 200 mg 05/24/17 12:33 05/25/17 16:26 Tessalon Perles PO 200 mg TID PRN Administration Cough Carvedilol 3.125 mg 05/23/17 21:00 05/27/17 09:11 Coreg PO 3.125 mg Q12 SOLIS Administration Ferrous Sulfate 325 mg 05/24/17 17:00 05/27/17 09:20 Feosol PO 325 mg BID SOLIS Administration Furosemide 60 mg 05/23/17 21:00 05/27/17 09:21 Lasix IV 60 mg Q12 SOLIS Administration Glipizide 10 mg 05/25/17 16:30 05/27/17 06:48 Glucotrol PO Not Given BIDAC SOLIS Haloperidol Lactate 1 mg 05/25/17 11:15 Haldol IVP ONCE SOLIS Home Med 1 drop 05/24/17 17:00 05/27/17 09:18 Cyclosporine [Restasis] BOTHEYES 1 drop BID SOLIS Administration Home Med 1 drop 05/24/17 17:00 05/27/17 09:19 Dorzolamide 2%/Timolol 0.5% [Cosopt 2%-0.5% Opht] EACHEYE 1 drop BID SOLIS Administration Home Med 1 drop 05/24/17 22:00 05/26/17 21:20 Tafluprost/Pf [Zioptan 0.0015% Eye Drops] EACHEYE 1 drop HS SOLIS Administration Hydrocortisone 1 applic 05/24/17 17:00 05/27/17 09:11 Anusol-Hc CT 1 applic BID SOLIS Administration Milrinone Lactate/Dextrose 100 mls @ 4.355 mls/hr 05/23/17 16:39 05/26/17 14: 57 Primacor 20mg/100ml D5w IV 0.2 mcg/kg/min .[id number] SOLIS 4.355 mls/hr Protocol Administration 0.2 MCG/KG/MIN Insulin Detemir 6 units 05/27/17 09:00 05/27/17 09:22 Levemir SC 6 units DAILY SOLIS Administration Insulin Human Regular 0 units 05/25/17 16:30 05/27/17 11:46 Humulin R SC 4 units ACHS SOLIS Administration Protocol Levalbuterol HCl 0.63 mg 05/23/17 21:00 05/27/17 08:00 Xopenex INH 0.63 mg RQ8 SOLIS Administration Levalbuterol HCl 0.63 mg 05/24/17 12:40 05/25/17 02:39 Xopenex INH 0.63 mg RQ8 PRN Administration Shortness of Breath Multivitamins/Minerals 1 tab 05/25/17 09:00 05/27/17 09:23 Therapeutic-M Tab PO 1 tab DAILY SOLIS Administration Pantoprazole Sodium 40 mg 05/23/17 16:15 05/27/17 09:23 Protonix Inj IVP 40 mg DAILY SOLIS Administration Saccharomyces Boulardii 250 mg 05/24/17 17:00 05/27/17 09:20 Florastor PO 250 mg BID SOLIS Administration Sitagliptin Phosphate 50 mg 05/25/17 09:00 05/27/17 09:21 Januvia PO 50 mg DAILY SOLIS Administration - Patient Studies Lab Studies: Lab Studies 05/27/17 05/27/17 05/27/17 Range/Units 11:41 05:33 04:20 WBC (4.8-10.8) K/uL RBC (3.80-5.20) Mil/uL Hgb (12.0-16.0) g/dL Hct (34.0-47.0) % MCV (81.0-99.0) fl MCH (27.0-31.0) pg MCHC (33.0-37.0) g/dL RDW (11.5-14.5) % Plt Count (130-400) K/uL Sodium 143 (132-148) mmol/l Potassium 3.7 (3.6-5.0) MMOL/L Chloride 97 L (98-107) mmol/L Carbon Dioxide 38 H (22-30) mmol/L Anion Gap 12 (10-20) BUN 28 H (7-17) mg/dl Creatinine 1.1 (0.7-1.2) mg/dL Est GFR ( Amer) 57 Est GFR (Non-Af Amer) 47 POC Glucose (mg/dL) 302 H 178 H (65-110) mg/dL Random Glucose 153 H (65-105) mg/dL Calcium 8.9 (8.4-10.2) mg/dL 05/27/17 05/26/17 05/26/17 Range/Units 04:20 21:21 16:29 WBC 6.0 (4.8-10.8) K/uL RBC 2.85 L (3.80-5.20) Mil/uL Hgb 9.2 L (12.0-16.0) g/dL Hct 29.6 L (34.0-47.0) % MCV 103.8 H (81.0-99.0) fl MCH 32.4 H (27.0-31.0) pg MCHC 31.2 L (33.0-37.0) g/dL RDW 18.9 H (11.5-14.5) % Plt Count 120 L (130-400) K/uL Sodium (132-148) mmol/l Potassium (3.6-5.0) MMOL/L Chloride (98-107) mmol/L Carbon Dioxide (22-30) mmol/L Anion Gap (10-20) BUN (7-17) mg/dl Creatinine (0.7-1.2) mg/dL Est GFR ( Amer) Est GFR (Non-Af Amer) POC Glucose (mg/dL) 232 H 247 H (65-110) mg/dL Random Glucose (65-105) mg/dL Calcium (8.4-10.2) mg/dL Laboratory Results - last 24 hr 05/26/17 05/26/17 05/27/17 16:29 21:21 04:20 WBC 6.0 RBC 2.85 L Hgb 9.2 L Hct 29.6 L MCV 103.8 H MCH 32.4 H MCHC 31.2 L RDW 18.9 H Plt Count 120 L Sodium Potassium Chloride Carbon Dioxide Anion Gap BUN Creatinine Est GFR ( Amer) Est GFR (Non-Af Amer) POC Glucose (mg/dL) 247 H 232 H Random Glucose Calcium 05/27/17 05/27/17 05/27/17 04:20 05:33 11:41 WBC RBC Hgb Hct MCV MCH MCHC RDW Plt Count Sodium 143 Potassium 3.7 Chloride 97 L Carbon Dioxide 38 H Anion Gap 12 BUN 28 H Creatinine 1.1 Est GFR ( Amer) 57 Est GFR (Non-Af Amer) 47 POC Glucose (mg/dL) 178 H 302 H Random Glucose 153 H Calcium 8.9 Fingerstick Blood Sugar Results: 302 Review of Systems - Review of Systems All systems: reviewed and no additional remarkable complaints except (mild SOB, mild nasal discomfort with high flow O2) Critical Care Progress Note - Extremities/Vascular Does the Patient have a Central Venous Catheter?: Yes Insertion Site: Internal Jugular Vein (Left, dressing c/d/i) Does the Patient need a Central Venous Catheter?: Yes Does the Patient have a Mackey Catheter?: No Does the Patient need a Mackey Catheter?: No - Prophylaxis GI Prophylaxis GI: PPI - Prophylaxis DVT Prophylaxis DVT: Not Indicated (hx of recurrent GI bleeds and severe anemia requiring blood transfusions in the past) - Nutrition Nutrition: Nutrition Category Date Time Status Dysphagia/Modified Consistency Diet [DIET] Diets 05/23/17 Dinner Active Assessment/Plan - Assessment and Plan (Free Text) Assessment: 87 yr old F with PMHx of Severe Systolic CHF (LVEF 20%) s/p MT (88'), cardiac arrest CABG (93') , chronic A-fib s/p ablation and AICD, VVI mode with BiV pacing, recurrent GI bleeds and severe anemia s/p multiple blood transfusions, moderate pulmonary HTN, former smoker, COPD, right sided epistaxis 05/20/17 s/p simple cauterization. Admitted to ICU for worsening hypercapnic respiratory failure with acute on chronic systolic CHF. Patient 1. Acute on Chronic Hypercapnic Respiratory Failure likely secondary to Severe Systolic CHF and moderate pulmonary HTN 2. Severe Systolic CHF (LVEF 20%), hypotension 3. Chronic A-fib -rate controlled 4. Anemia of Chronic Disease and thrombocytopenia 5. NIDDM Type 2 6. Dementia 7. GI/DVT prophylaxis Plan: 1. stable, continue supplemental high flow O2 at 38L/min with FiO2 40%, pulmonology on board, will follow recommendations, stable small right pleural effusion-per IR thoracentesis not required at this time, CXR 05/27/17: no interval change 2. chronic, lasix 60mg IV Q12, Milrinone 0.2 mcg/kg/min 3. resume Eliquis 2.5mg PO BID; pt is s/p AICD, VVI mode with BiV pacing 4. stable, chronic, monitor H/H and plts 5. Januvia 50mg PO QD, Glipizide 10mg PO BIDAC 6. chronic, stable 7. Protonix 40mg IV QD/ SCD's PRN, anticoagulation as above - Date & Time Date: 05/27/17 Time: 08:00 <ChelseabuffyClint - Last Filed: 05/27/17 18:09> CCU Objective - Vital Signs / Intake & Output Vital Signs (Last 4 hours): Vital Signs Temp Pulse Resp BP Pulse Ox 05/27/17 18:00 87 19 118/90 100 05/27/17 16:00 98.3 F 77 23 97/52 L 100 05/27/17 15:33 18 Intake and Output (Last 8hrs): Intake & Output 05/27/17 05/27/17 05/27/17 06:59 14:59 22:59 Intake Total 27 825 350 Output Total 400 150 Balance 27 425 200 Intake: IV 27 25 Oral 800 350 Output: Urine 400 150 Urethral (Makcey) 400 150 Other: # Bowel Movements 2 - Medications Active Medications: Active Medications Generic Name Dose Route Start Last Admin Trade Name Freq PRN Reason Stop Dose Admin Acetaminophen 325 mg 05/24/17 12:33 05/27/17 11:34 Tylenol 325mg Tab PO 325 mg Q6H PRN Administration Headache Acetazolamide 250 mg 05/25/17 10:00 05/27/17 16:22 Diamox 250 Mg Tab PO 250 mg BIDWM SOLIS Administration Allopurinol 100 mg 05/25/17 09:00 05/27/17 09:23 Zyloprim PO 100 mg DAILY SOLIS Administration Apixaban 2.5 mg 05/27/17 17:45 Eliquis PO BID [facility] Protocol Benzonatate 200 mg 05/24/17 12:33 05/25/17 16:26 Tessalon Perles PO 200 mg TID PRN Administration Cough Carvedilol 3.125 mg 05/23/17 21:00 05/27/17 09:11 Coreg PO 3.125 mg Q12 SOLIS Administration Ferrous Sulfate 325 mg 05/24/17 17:00 05/27/17 16:23 Feosol PO 325 mg BID SOLIS Administration Furosemide 60 mg 05/23/17 21:00 05/27/17 09:21 Lasix IV 60 mg Q12 SOLIS Administration Glipizide 10 mg 05/25/17 16:30 05/27/17 16:23 Glucotrol PO 10 mg BIDAC SOLIS Administration Haloperidol Lactate 1 mg 05/25/17 11:15 Haldol IVP ONCE SOLIS Home Med 1 drop 05/24/17 17:00 05/27/17 16:22 Cyclosporine [Restasis] BOTHEYES 1 drop BID SOLIS Administration Home Med 1 drop 05/24/17 17:00 05/27/17 16:22 Dorzolamide 2%/Timolol 0.5% [Cosopt 2%-0.5% Opht] EACHEYE 1 drop BID SOLIS Administration Home Med 1 drop 05/24/17 22:00 05/26/17 21:20 Tafluprost/Pf [Zioptan 0.0015% Eye Drops] EACHEYE 1 drop HS SOLIS Administration Hydrocortisone 1 applic 05/24/17 17:00 05/27/17 16:21 Anusol-Hc CT 1 applic BID SOLIS Administration Milrinone Lactate/Dextrose 100 mls @ 4.355 mls/hr 05/23/17 16:39 05/26/17 14: 57 Primacor 20mg/100ml D5w IV 0.2 mcg/kg/min .[id number] SOLIS 4.355 mls/hr Protocol Administration 0.2 MCG/KG/MIN Insulin Detemir 6 units 05/27/17 09:00 05/27/17 09:22 Levemir SC 6 units DAILY SOLIS Administration Insulin Human Regular 0 units 05/25/17 16:30 05/27/17 16:24 Humulin R SC Not Given ACHS [facility] Protocol Levalbuterol HCl 0.63 mg 05/23/17 21:00 05/27/17 15:32 Xopenex INH 0.63 mg RQ8 SOLIS Administration Levalbuterol HCl 0.63 mg 05/24/17 12:40 05/25/17 02:39 Xopenex INH 0.63 mg RQ8 PRN Administration Shortness of Breath Multivitamins/Minerals 1 tab 05/25/17 09:00 05/27/17 09:23 Therapeutic-M Tab PO 1 tab DAILY SOLIS Administration Pantoprazole Sodium 40 mg 05/23/17 16:15 05/27/17 09:23 Protonix Inj IVP 40 mg DAILY SOLIS Administration Saccharomyces Boulardii 250 mg 05/24/17 17:00 05/27/17 16:23 Florastor PO 250 mg BID SOLIS Administration Sitagliptin Phosphate 50 mg 05/25/17 09:00 05/27/17 09:21 Januvia PO 50 mg DAILY SOLIS Administration - Patient Studies Lab Studies: Lab Studies 05/27/17 05/27/17 05/27/17 Range/Units 16:06 11:41 05:33 WBC (4.8-10.8) K/uL RBC (3.80-5.20) Mil/uL Hgb (12.0-16.0) g/dL Hct (34.0-47.0) % MCV (81.0-99.0) fl MCH (27.0-31.0) pg MCHC (33.0-37.0) g/dL RDW (11.5-14.5) % Plt Count (130-400) K/uL Sodium (132-148) mmol/l Potassium (3.6-5.0) MMOL/L Chloride (98-107) mmol/L Carbon Dioxide (22-30) mmol/L Anion Gap (10-20) BUN (7-17) mg/dl Creatinine (0.7-1.2) mg/dL Est GFR ( Amer) Est GFR (Non-Af Amer) POC Glucose (mg/dL) 180 H 302 H 178 H (65-110) mg/dL Random Glucose (65-105) mg/dL Calcium (8.4-10.2) mg/dL 05/27/17 05/27/17 05/26/17 Range/Units 04:20 04:20 21:21 WBC 6.0 (4.8-10.8) K/uL RBC 2.85 L (3.80-5.20) Mil/uL Hgb 9.2 L (12.0-16.0) g/dL Hct 29.6 L (34.0-47.0) % MCV 103.8 H (81.0-99.0) fl MCH 32.4 H (27.0-31.0) pg MCHC 31.2 L (33.0-37.0) g/dL RDW 18.9 H (11.5-14.5) % Plt Count 120 L (130-400) K/uL Sodium 143 (132-148) mmol/l Potassium 3.7 (3.6-5.0) MMOL/L Chloride 97 L (98-107) mmol/L Carbon Dioxide 38 H (22-30) mmol/L Anion Gap 12 (10-20) BUN 28 H (7-17) mg/dl Creatinine 1.1 (0.7-1.2) mg/dL Est GFR ( Amer) 57 Est GFR (Non-Af Amer) 47 POC Glucose (mg/dL) 232 H (65-110) mg/dL Random Glucose 153 H (65-105) mg/dL Calcium 8.9 (8.4-10.2) mg/dL Laboratory Results - last 24 hr 05/26/17 05/27/17 05/27/17 21:21 04:20 04:20 WBC 6.0 RBC 2.85 L Hgb 9.2 L Hct 29.6 L MCV 103.8 H MCH 32.4 H MCHC 31.2 L RDW 18.9 H Plt Count 120 L Sodium 143 Potassium 3.7 Chloride 97 L Carbon Dioxide 38 H Anion Gap 12 BUN 28 H Creatinine 1.1 Est GFR ( Amer) 57 Est GFR (Non-Af Amer) 47 POC Glucose (mg/dL) 232 H Random Glucose 153 H Calcium 8.9 05/27/17 05/27/17 05/27/17 05:33 11:41 16:06 WBC RBC Hgb Hct MCV MCH MCHC RDW Plt Count Sodium Potassium Chloride Carbon Dioxide Anion Gap BUN Creatinine Est GFR ( Amer) Est GFR (Non-Af Amer) POC Glucose (mg/dL) 178 H 302 H 180 H Random Glucose Calcium Critical Care Progress Note - Nutrition Nutrition: Nutrition Category Date Time Status Dysphagia/Modified Consistency Diet [DIET] Diets 05/23/17 Dinner Active Attending/Attestation - Attestation I have personally seen and examined this patient.: Yes I have fully participated in the care of the patient.: Yes I have reviewed all pertinent clinical information: Yes Notes (Text): 05/27/17 18:09 Today: Saturday, May 27, 2017 The patient was Seen/interviewed and examined by me at the bedside during ICU round, Medical records reviewed and Management issues were discussed and formulated with the house staff. I have reviewed all the relevant clinical, laboratory, hemodynamic, radiographic data and medications Pain issues, skin care, head of the bed elevation, glycemic control were addressed. I concur with resident's assessment and plan of care as transcribed in Dr. Arias note.
[2017-05-27] MEDS: TAFLUPROST EACHEYE SCH (21:09)
--- NOTE | 2017-05-27 21:35 | PN ---
ENDOSCOPY FOLLOWUP NOTE DATE: 05/27/2017 LOCATION: Room 421, ICU. SUBJECTIVE: This is an 87-year-old female with recent uncontrolled type 2 insulin-requiring diabetes with recent hyperglycemic accelerations as noted thereof. She apparently was not receiving her glipizide medications per the family's request as discussed with the nursing staff today. Moreover, with intercurrent physical stressors of her advanced CHF with underlying pleural effusion, would expect also hyperglycemic accelerations as noted thereof. Her oral intake has been variable and with preferential food intake from home as noted. Her glucose values have ranged from 178-302 and 180 mg/dL. The latest chemistry showed a BUN of 28, sodium 143, potassium 3.7, chloride 97, CO2 38, glucose 153, and creatinine 1.1. So at this time, we will actually add basal insulin with Levemir to be given as 6 units subcu daily as ordered to start this morning as given. We will restart back her glipizide given as 10 mg b.i.d. before meals as ordered. We will continue the Januvia given as 50 mg once daily as ordered. A lengthy bedside discussion and also a telephone discussion was undertaken with the daughter, Glory Gomez regarding the current medical management and also the diet and also the transient hyperglycemic fluctuations as noted. We will follow. Lauryn Chandra MD
[2017-05-28] MEDS: Levalbuterol 0.63 MG/3 ML Inhal Soln UD INH SCH ×4 (00:06→23:55)
[2017-05-28 05:28] LABS: HEMATOCRIT 29.9 % (34.0-47.0); MEAN CELL VOLUME 104.3 fl (81.0-99.0); MEAN CORPUSCULAR HEMOGLOBIN 31.9 pg (27.0-31.0); MEAN CORPUSCULAR HGB CONC 30.6 g/dL (33.0-37.0); RED CELL DISTRIBUTION WIDTH 18.6 % (11.5-14.5); WHITE BLOOD COUNT 7.3 K/uL (4.8-10.8)
[2017-05-28 05:35] LABS: CALCIUM 8.9 mg/dL (8.4-10.2); POTASSIUM 3.8 MMOL/L (3.6-5.0)
[2017-05-28 06:24] LABS: PARTIAL THROMBOPLASTIN TIME 34.3 Seconds (25.6-37.1)
[2017-05-28] MEDS: Insulin Regular 100 units/ml SC SCH ×5 (06:30→21:05)
--- NOTE | 2017-05-28 06:41 | CP.CCUPN ---
CCU Subjective - Physician Review Subjective (Free Text): Sleeping, easily arousable to name calling, on HFNC 38LPM at 40% oxygen with SPO2 up to 99%, no distress nor accessory mm use nor any paradoxical abd breathing movements. On Milrinone drip at 0.2 mcg/kg/min dose. LUE still edematous and elevated on one pillow. She is keeping SCDFs on bilat, verbal responses are in her usual eccentric mannerisms. No overt or worsening confusion noted. Other vitals and I/O's reviewed. No fever spikes noted, temps mostly 98F. ROS: No other pertinent negs or positives on 10+ system review. PMSFH: Underwent R thoracentesis 2 weeks ago (05/14). All Nursing and physician documentation reviewed to date; no new pertinent info noted relevant to current medical problems. MAJOR PROBLEMS: 1. Acute Hypercapneic Resp Failure 2 Decompensated L-CHF / Cardiomyopathy; r/ oed AMI 2. Chronic A fib on AC 3. Chronic Disease Anemia / Thrombocytopenia 4. Dementia / Delirium 5. DM II PLAN: 1. Coags reviewed, INR 1.5, but Eliquis has been resumed. 2. No CXR yet today, but film from 05/27 no worse with bilat basilar interstitial changes, so far deemed not enough lung fluid re-accumulation for safe thoracentesis. No new fevers nor leukocytosis noted with these interstitial changes. 3. BP levels remain stable over the past 24H, continue Milrinone. 4. On both Lasix and Diamox, serum Bicarbs show no worsening, but would consider increasing Diamox to 500mg dose to see if it better effects serum bicarb levels. Overall I/Os have not been negative since 05/25/17. Renal fx stable on current Lasix dosing at 60mg q12H. 5. Full Code Status remains in effect, but family especially Daughter is cognizant that no aggressive resuscitation may be an acceptable option now. CCU Objective - Vital Signs / Intake & Output Vital Signs (Last 4 hours): Vital Signs Temp Pulse Resp BP Pulse Ox 05/28/17 06:00 77 24 109/37 L 100 05/28/17 04:06 22 05/28/17 04:00 98.4 F 84 16 115/71 99 Intake and Output (Last 8hrs): Intake & Output 09/08/3105/27/17 05/28/17 14:59 22:59 06:59 Intake Total 825 536 32 Output Total 400 150 500 Balance 425 386 -468 Intake: IV 25 16 32 Oral 800 520 Output: Urine 400 150 500 Urethral (Mackey) 400 150 500 Other: # Bowel Movements 2 0 - Physical Exam Head: Positive for: Normocephalic Pupils: Positive for: PERRL Extroacular Muscles: Positive for: EOMI Conjunctiva: Positive for: Normal. Negative for: Icteric Mouth: Positive for: Moist Mucous Membranes Pharnyx: Positive for: Normal Neck: Positive for: Normal Range of Motion, JVD. Negative for: Bruit Respiratory/Chest: Positive for: Respiratory Distress (mild dyspnea), Rhonchi ( bilateral). Negative for: Accessory Muscle Use, Wheezes Cardiovascular: Positive for: Regular Rate and Rhythm (Paced), Murmurs ( systolic murmur), Irregular Rhythm, Peripheal Pulses Present. Negative for: Rub Abdomen: Positive for: Normal Bowel Sounds. Negative for: Tenderness, Distention Upper Extremity: Positive for: Edema (mostly LUE) Lower Extremity: Positive for: Edema. Negative for: CALF TENDERNESS, Cyanosis Neurological: Positive for: Speech Normal, Motor Func Grossly Intact, Normal Sensory Function Skin: Positive for: Warm, Pale. Negative for: Rashes Psychiatric: Positive for: Oriented x 3 - Medications Active Medications: Active Medications Generic Name Dose Route Start Last Admin Trade Name Freq PRN Reason Stop Dose Admin Acetaminophen 325 mg 05/24/17 12:33 05/27/17 11:34 Tylenol 325mg Tab PO 325 mg Q6H PRN Administration Headache Acetazolamide 250 mg 05/25/17 10:00 05/27/17 16:22 Diamox 250 Mg Tab PO 250 mg BIDWM [facility] Administration Allopurinol 100 mg 05/25/17 09:00 05/27/17 09:23 Zyloprim PO 100 mg DAILY [facility] Administration Apixaban 2.5 mg 05/27/17 17:45 05/27/17 21:07 Eliquis PO 2.5 mg BID [facility] Administration Protocol Benzonatate 200 mg 05/24/17 12:33 05/25/17 16:26 Tessalon Perles PO 200 mg TID PRN Administration Cough Carvedilol 3.125 mg 05/23/17 21:00 05/27/17 21:07 Coreg PO 3.125 mg Q12 [facility] Administration Ferrous Sulfate 325 mg 05/24/17 17:00 05/27/17 16:23 Feosol PO 325 mg BID [facility] Administration Furosemide 60 mg 05/23/17 21:00 05/27/17 21:06 Lasix IV 60 mg Q12 [facility] Administration Glipizide 10 mg 05/25/17 16:30 05/27/17 16:23 Glucotrol PO 10 mg BIDAC [facility] Administration Haloperidol Lactate 1 mg 05/25/17 11:15 Haldol IVP ONCE [facility] Home Med 1 drop 05/24/17 17:00 05/27/17 16:22 Cyclosporine [Restasis] BOTHEYES 1 drop BID [facility] Administration Home Med 1 drop 05/24/17 17:00 05/27/17 16:22 Dorzolamide 2%/Timolol 0.5% [Cosopt 2%-0.5% Opht] EACHEYE 1 drop BID [facility] Administration Home Med 1 drop 05/24/17 22:00 05/27/17 21:09 Tafluprost/Pf [Zioptan 0.0015% Eye Drops] EACHEYE 1 drop HS [facility] Administration Hydrocortisone 1 applic 05/24/17 17:00 05/27/17 16:21 Anusol-Hc MI 1 applic BID [facility] Administration Milrinone Lactate/Dextrose 100 mls @ 4.355 mls/hr 05/23/17 16:39 05/26/17 14: 57 Primacor 20mg/100ml D5w IV 0.2 mcg/kg/min .[id number] [facility] 4.355 mls/hr Protocol Administration 0.2 MCG/KG/MIN Insulin Detemir 6 units 05/27/17 09:00 05/27/17 09:22 Levemir SC 6 units DAILY [facility] Administration Insulin Human Regular 0 units 05/25/17 16:30 05/28/17 06:31 Humulin R SC Not Given ACHS [facility] Protocol Levalbuterol HCl 0.63 mg 05/23/17 21:00 05/28/17 00:06 Xopenex INH 0.63 mg RQ8 [facility] Administration Levalbuterol HCl 0.63 mg 05/24/17 12:40 05/25/17 02:39 Xopenex INH 0.63 mg RQ8 PRN Administration Shortness of Breath Multivitamins/Minerals 1 tab 05/25/17 09:00 05/27/17 09:23 Therapeutic-M Tab PO 1 tab DAILY [facility] Administration Pantoprazole Sodium 40 mg 05/23/17 16:15 05/27/17 09:23 Protonix Inj IVP 40 mg DAILY [facility] Administration Saccharomyces Boulardii 250 mg 05/24/17 17:00 05/27/17 16:23 Florastor PO 250 mg BID [facility] Administration Sitagliptin Phosphate 50 mg 05/25/17 09:00 05/27/17 09:21 Januvia PO 50 mg DAILY [facility] Administration - Patient Studies Lab Studies: Lab Studies 05/28/17 05/28/17 05/28/17 Range/Units 05:06 04:55 04:55 WBC (4.8-10.8) K/uL RBC (3.80-5.20) Mil/uL Hgb (12.0-16.0) g/dL Hct (34.0-47.0) % MCV (81.0-99.0) fl MCH (27.0-31.0) pg MCHC (33.0-37.0) g/dL RDW (11.5-14.5) % Plt Count (130-400) K/uL PT 16.0 H (9.8-13.1) Seconds INR 1.5 H (0.9-1.2) APTT 34.3 (25.6-37.1) Seconds Sodium 142 (132-148) mmol/l Potassium 3.8 (3.6-5.0) MMOL/L Chloride 96 L (98-107) mmol/L Carbon Dioxide 36 H (22-30) mmol/L Anion Gap 14 (10-20) BUN 27 H (7-17) mg/dl Creatinine 1.1 (0.7-1.2) mg/dL Est GFR ( Amer) 57 Est GFR (Non-Af Amer) 47 POC Glucose (mg/dL) 151 H (65-110) mg/dL Random Glucose 133 H (65-105) mg/dL Calcium 8.9 (8.4-10.2) mg/dL 05/28/17 05/27/17 05/27/17 Range/Units 04:55 23:28 21:41 WBC 7.3 (4.8-10.8) K/uL RBC 2.87 L (3.80-5.20) Mil/uL Hgb 9.1 L (12.0-16.0) g/dL Hct 29.9 L (34.0-47.0) % MCV 104.3 H (81.0-99.0) fl MCH 31.9 H (27.0-31.0) pg MCHC 30.6 L (33.0-37.0) g/dL RDW 18.6 H (11.5-14.5) % Plt Count 109 L (130-400) K/uL PT (9.8-13.1) Seconds INR (0.9-1.2) APTT (25.6-37.1) Seconds Sodium (132-148) mmol/l Potassium (3.6-5.0) MMOL/L Chloride (98-107) mmol/L Carbon Dioxide (22-30) mmol/L Anion Gap (10-20) BUN (7-17) mg/dl Creatinine (0.7-1.2) mg/dL Est GFR ( Amer) Est GFR (Non-Af Amer) POC Glucose (mg/dL) 184 H 89 (65-110) mg/dL Random Glucose (65-105) mg/dL Calcium (8.4-10.2) mg/dL 05/27/17 05/27/17 Range/Units 16:06 11:41 WBC (4.8-10.8) K/uL RBC (3.80-5.20) Mil/uL Hgb (12.0-16.0) g/dL Hct (34.0-47.0) % MCV (81.0-99.0) fl MCH (27.0-31.0) pg MCHC (33.0-37.0) g/dL RDW (11.5-14.5) % Plt Count (130-400) K/uL PT (9.8-13.1) Seconds INR (0.9-1.2) APTT (25.6-37.1) Seconds Sodium (132-148) mmol/l Potassium (3.6-5.0) MMOL/L Chloride (98-107) mmol/L Carbon Dioxide (22-30) mmol/L Anion Gap (10-20) BUN (7-17) mg/dl Creatinine (0.7-1.2) mg/dL Est GFR ( Amer) Est GFR (Non-Af Amer) POC Glucose (mg/dL) 180 H 302 H (65-110) mg/dL Random Glucose (65-105) mg/dL Calcium (8.4-10.2) mg/dL Laboratory Results - last 24 hr 05/27/17 05/27/17 05/27/17 11:41 16:06 21:41 WBC RBC Hgb Hct MCV MCH MCHC RDW Plt Count PT INR APTT Sodium Potassium Chloride Carbon Dioxide Anion Gap BUN Creatinine Est GFR ( Amer) Est GFR (Non-Af Amer) POC Glucose (mg/dL) 302 H 180 H 89 Random Glucose Calcium 05/27/17 05/28/17 05/28/17 23:28 04:55 04:55 WBC 7.3 RBC 2.87 L Hgb 9.1 L Hct 29.9 L MCV 104.3 H MCH 31.9 H MCHC 30.6 L RDW 18.6 H Plt Count 109 L PT 16.0 H INR 1.5 H APTT 34.3 Sodium Potassium Chloride Carbon Dioxide Anion Gap BUN Creatinine Est GFR ( Amer) Est GFR (Non-Af Amer) POC Glucose (mg/dL) 184 H Random Glucose Calcium 05/28/17 05/28/17 04:55 05:06 WBC RBC Hgb Hct MCV MCH MCHC RDW Plt Count PT INR APTT Sodium 142 Potassium 3.8 Chloride 96 L Carbon Dioxide 36 H Anion Gap 14 BUN 27 H Creatinine 1.1 Est GFR ( Amer) 57 Est GFR (Non-Af Amer) 47 POC Glucose (mg/dL) 151 H Random Glucose 133 H Calcium 8.9 Radiology Interpretations (Free Text): CXR from 05/27 reviewed: (my interp)- bilat basilar interstitial changes and mild haziness, no gross consolidation, 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 Fingerstick Blood Sugar Results: 151 Review of Systems - Review of Systems All systems: reviewed and no additional remarkable complaints except (as above) Critical Care Progress Note - Extremities/Vascular Does the Patient have a Central Venous Catheter?: No Does the Patient need a Central Venous Catheter?: Yes Does the Patient have a Mackey Catheter?: Yes Does the Patient need a Mackey Catheter?: Yes Catheter Insertion Criteria: Need for accurate measurement of output in critically ill patient - Prophylaxis GI Prophylaxis GI: PPI - Prophylaxis DVT Prophylaxis DVT: SCDs (and on Eliquis) - Nutrition Nutrition: Nutrition Category Date Time Status Dysphagia/Modified Consistency Diet [DIET] Diets 05/23/17 Dinner Active
[2017-05-28] MEDS: Hydrocortisone 2.5% (Rectal) CREAM PR SCH ×2 (08:45→16:08)
--- NOTE | 2017-05-28 08:45 | CP.PCM.PN ---
Subjective - Date & Time of Evaluation Date of Evaluation: 05/28/17 Time of Evaluation: 08:42 - Subjective Subjective: Case discussed with mold hoister. Patient examined with son at bedside. Awake and cooperative. Appears exhausted, congested cough +, non-productive. Vital signs have been relatively stable. SpO2 100% on HFNC @ 40%/38LPM. AM labs reviewed; CO2 down to 36. Dependant edema slowly decreasing, no cyanosis. Neck is supple and trachea midline. No dullness over the anterior chest wall. Breath sounds are diminished bilaterally, absent in the RLL area. No audible wheezes or bronchial breath sounds. Scattered dependant sonorous rhonchi, few medium rales. Will try using Acapella CPT device. Continue aerosol therapy. Awaiting today's PCXR. Adding steroids would likely result in more fluid retention. Aerosolized acetylcysteine not likely to help since sputum has been mucoid, not purulent. Objective - Vital Signs/Intake and Output Vital Signs (last 24 hours): Temp Pulse Resp BP Pulse Ox 98.0 F 75 17 126/62 99 05/28/17 08:00 05/28/17 08:00 05/28/17 08:16 05/28/17 08:00 05/28/17 08:00 Intake and Output: 05/27/17 05/28/17 23:59 11:59 Intake Total 836 32 Output Total 350 500 Balance 486 -468 - Medications Medications: Current Medications Acetaminophen (Tylenol 325mg Tab) 325 mg PO Q6H PRN PRN Reason: Headache Last Admin: 05/27/17 11:34 Dose: 325 mg Acetazolamide (Diamox 250 Mg Tab) 250 mg PO BIDWM [facility] Last Admin: 05/27/17 16:22 Dose: 250 mg Allopurinol (Zyloprim) 100 mg PO DAILY [facility] Last Admin: 05/27/17 09:23 Dose: 100 mg Apixaban (Eliquis) 2.5 mg PO BID [facility] PRN Reason: Protocol Last Admin: 05/27/17 21:07 Dose: 2.5 mg Benzonatate (Tessalon Perles) 200 mg PO TID PRN PRN Reason: Cough Last Admin: 05/25/17 16:26 Dose: 200 mg Carvedilol (Coreg) 3.125 mg PO Q12 [facility] Last Admin: 05/27/17 21:07 Dose: 3.125 mg Ferrous Sulfate (Feosol) 325 mg PO BID [facility] Last Admin: 05/27/17 16:23 Dose: 325 mg Furosemide (Lasix) 60 mg IV Q12 [facility] Last Admin: 05/27/17 21:06 Dose: 60 mg Glipizide (Glucotrol) 10 mg PO BIDAC [facility] Last Admin: 05/28/17 07:00 Dose: 10 mg Haloperidol Lactate (Haldol) 1 mg IVP ONCE [facility] Home Med (Cyclosporine [Restasis]) 1 drop BOTHEYES BID [facility] Last Admin: 05/27/17 16:22 Dose: 1 drop Home Med (Dorzolamide 2%/Timolol 0.5% [Cosopt 2%-0.5% Opht]) 1 drop EACHEYE BID [facility] Last Admin: 05/27/17 16:22 Dose: 1 drop Home Med (Tafluprost/Pf [Zioptan 0.0015% Eye Drops]) 1 drop EACHEYE HS [facility] Last Admin: 05/27/17 21:09 Dose: 1 drop Hydrocortisone (Anusol-Hc) 1 applic NV BID [facility] Last Admin: 05/27/17 16:21 Dose: 1 applic Milrinone Lactate/Dextrose (Primacor 20mg/100ml D5w) 100 mls @ 4.355 mls/hr IV .[id number] [facility]; 0.2 MCG/KG/MIN PRN Reason: Protocol Last Admin: 05/26/17 14:57 Dose: 0.2 mcg/kg/min, 4.355 mls/hr Insulin Detemir (Levemir) 6 units SC DAILY [facility] Last Admin: 05/27/17 09:22 Dose: 6 units Insulin Human Regular (Humulin R) 0 units SC ACHS [facility] PRN Reason: Protocol Last Admin: 05/28/17 06:31 Dose: Not Given Levalbuterol HCl (Xopenex) 0.63 mg INH RQ8 [facility] Last Admin: 05/28/17 00:06 Dose: 0.63 mg Levalbuterol HCl (Xopenex) 0.63 mg INH RQ8 PRN PRN Reason: Shortness of Breath Last Admin: 05/25/17 02:39 Dose: 0.63 mg Multivitamins/Minerals (Therapeutic-M Tab) 1 tab PO DAILY [facility] Last Admin: 05/27/17 09:23 Dose: 1 tab Pantoprazole Sodium (Protonix Inj) 40 mg IVP DAILY [facility] Last Admin: 05/27/17 09:23 Dose: 40 mg Saccharomyces Boulardii (Florastor) 250 mg PO BID [facility] Last Admin: 05/27/17 16:23 Dose: 250 mg Sitagliptin Phosphate (Januvia) 50 mg PO DAILY [facility] Last Admin: 05/27/17 09:21 Dose: 50 mg - Labs Labs: 05/28/17 04:55 05/28/17 04:55 PT 16.0 Seconds (9.8-13.1) H 05/28/17 04:55 INR 1.5 (0.9-1.2) H 05/28/17 04:55 APTT 34.3 Seconds (25.6-37.1) 05/28/17 04:55 Assessment and Plan (1) Chronic respiratory failure with hypoxia and hypercapnia Status: Chronic (2) CHF (congestive heart failure) Status: Chronic (3) COPD (chronic obstructive pulmonary disease) Status: Chronic (4) Pulmonary hypertension Status: Chronic
[2017-05-28] MEDS: Patient's Own Med (Dorzolamide 2%/Timolol 0.5% [Cosopt 2%-0.5% Opht] 1 DROP) EACHEYE SCH ×2 (08:46→16:09)
[2017-05-28] MEDS: Patient's Own Med (Cyclosporine [Restasis] 1 DROP) BOTHEYES SCH ×2 (08:46→16:08)
[2017-05-28] MEDS: Saccharomyces Boulardi 250 mg Cap PO SCH ×2 (08:47→16:10)
[2017-05-28] MEDS: Insulin Detemir 100 Units/ml Inj SC SCH (08:48)
[2017-05-28] MEDS: Multivitamin With Minerals Tab PO SCH (08:49)
--- NOTE | 2017-05-28 10:20 | CP.PCM.PN ---
Subjective - Date & Time of Evaluation Date of Evaluation: 05/28/17 Time of Evaluation: 09:30 - Subjective Subjective: Drowsy, easily arousable Appears exhausted, falls asleep during discussion about her around her bed Resp rate 20 BPM VVI paced rhythm at 68 BPM BP 116/64 mm Hg JVP flat, no sacral oedema Apical syst murmur of MR+ Bilat rhonchi + (exp prolonged) CBC shows stable Hb/Mild thrombocytopenia BUN/Creatinin stable K+ normal (Bicarb high due to CO2 retension) Willgive Spironolactone to encourage diuresis Milrinone to come off after 5 Days of IV infusion Had a discussion with all 3 children of pt with Dr. Mcdowell in attendance DNR explained and agreed to by all three The AICD will be interrogated then turned off Poor intermodal dispatcher prognosis explained to them again Objective - Vital Signs/Intake and Output Vital Signs (last 24 hours): Temp Pulse Resp BP Pulse Ox 98.0 F 77 17 125/62 99 05/28/17 08:00 05/28/17 08:45 05/28/17 08:16 05/28/17 08:47 05/28/17 08:00 Intake and Output: 05/28/17 05/28/17 06:59 18:59 Intake Total 218 Output Total 500 100 Balance -282 -100 - Medications Medications: Current Medications Acetaminophen (Tylenol 325mg Tab) 325 mg PO Q6H PRN PRN Reason: Headache Last Admin: 05/27/17 11:34 Dose: 325 mg Acetazolamide (Diamox 250 Mg Tab) 500 mg PO BIDWM [facility] Allopurinol (Zyloprim) 100 mg PO DAILY [facility] Last Admin: 05/28/17 08:49 Dose: 100 mg Apixaban (Eliquis) 2.5 mg PO BID [facility] PRN Reason: Protocol Last Admin: 05/28/17 08:47 Dose: 2.5 mg Benzonatate (Tessalon Perles) 200 mg PO TID PRN PRN Reason: Cough Last Admin: 05/25/17 16:26 Dose: 200 mg Carvedilol (Coreg) 3.125 mg PO Q12 [facility] Last Admin: 05/28/17 08:45 Dose: 3.125 mg Ferrous Sulfate (Feosol) 325 mg PO BID [facility] Last Admin: 05/28/17 08:47 Dose: 325 mg Furosemide (Lasix) 60 mg IV Q12 [facility] Last Admin: 05/28/17 08:47 Dose: 60 mg Glipizide (Glucotrol) 10 mg PO BIDAC [facility] Last Admin: 05/28/17 07:00 Dose: 10 mg Haloperidol Lactate (Haldol) 1 mg IVP ONCE [facility] Home Med (Cyclosporine [Restasis]) 1 drop BOTHEYES BID [facility] Last Admin: 05/28/17 08:46 Dose: 1 drop Home Med (Dorzolamide 2%/Timolol 0.5% [Cosopt 2%-0.5% Opht]) 1 drop EACHEYE BID [facility] Last Admin: 05/28/17 08:46 Dose: 1 drop Home Med (Tafluprost/Pf [Zioptan 0.0015% Eye Drops]) 1 drop EACHEYE HS [facility] Last Admin: 05/27/17 21:09 Dose: 1 drop Hydrocortisone (Anusol-Hc) 1 applic DE BID [facility] Last Admin: 05/28/17 08:45 Dose: 1 applic Insulin Detemir (Levemir) 6 units SC DAILY [facility] Last Admin: 05/28/17 08:48 Dose: 6 units Insulin Human Regular (Humulin R) 0 units SC [facility] PRN Reason: Protocol Last Admin: 05/28/17 06:31 Dose: Not Given Levalbuterol HCl (Xopenex) 0.63 mg INH RQ8 [facility] Last Admin: 05/28/17 09:14 Dose: 0.63 mg Levalbuterol HCl (Xopenex) 0.63 mg INH RQ8 PRN PRN Reason: Shortness of Breath Last Admin: 05/25/17 02:39 Dose: 0.63 mg Multivitamins/Minerals (Therapeutic-M Tab) 1 tab PO DAILY [facility] Last Admin: 05/28/17 08:49 Dose: 1 tab Pantoprazole Sodium (Protonix Inj) 40 mg IVP DAILY [facility] Last Admin: 05/28/17 08:48 Dose: 40 mg Saccharomyces Boulardii (Florastor) 250 mg PO BID [facility] Last Admin: 05/28/17 08:47 Dose: 250 mg Sitagliptin Phosphate (Januvia) 50 mg PO DAILY [facility] Last Admin: 05/28/17 08:47 Dose: 50 mg Spironolactone (Aldactone) 50 mg PO DAILY [facility] - Labs Labs: 05/28/17 04:55 05/28/17 04:55 PT 16.0 Seconds (9.8-13.1) H 05/28/17 04:55 INR 1.5 (0.9-1.2) H 05/28/17 04:55 APTT 34.3 Seconds (25.6-37.1) 05/28/17 04:55
--- NOTE | 2017-05-28 12:39 | RAD ---
HISTORY: Shortness of breath. Technique: Single view portable semi erect @ 10:00 COMPARISON: Multiple serial examinations preceding the most recent study: May 27, 2017. Upright study 08:45. FINDINGS: LUNGS: Stable right lower lobe infiltrate. PLEURA: Stable right pleural effusion. CARDIOVASCULAR: Stable cardiomegaly/ pulmonary vascular congestion. Position/ configuration of pacemaker OSSEOUS STRUCTURES: No significant abnormalities. VISUALIZED UPPER ABDOMEN: Normal. OTHER FINDINGS: None. IMPRESSION: No significant interval change compared to the prior examination(s).
[2017-05-28] MEDS: TAFLUPROST EACHEYE SCH (21:03)
[2017-05-28] MEDS ORDERED: Albuterol-Ipratrop 3 mg / 0.5 (3 ml) UD INH STA (22:24)
--- NOTE | 2017-05-28 23:52 | PN ---
DATE: ENDO FOLLOWUP NOTE LOCATION: Room 421 ICU. This is an 87-year-old female with recent uncontrolled type 2 insulin-requiring diabetes now being followed closely for metabolic management. Her glycemic levels are fluctuating, but much improved at this time. The latest glucose levels have ranged from 151-185 and 213 mg/dL. Her latest chemistry showed a BUN of 27, sodium 142, potassium 3.8, chloride 96, CO2 of 36, glucose 133 and creatinine 1.1. Her oral intake is quite variable at this time as per the nursing staff. So for now we will continue the same basal insulin given as Levemir at 6 units subcu daily as ordered. We will continue her Januvia given as 50 mg once daily and glipizide given as 10 mg b.i.d. before meals as ordered. We will titrate incrementally as indicated to optimize metabolic control. She is also being followed closely here in the ICU for hemodynamic monitoring of recent congestive heart failure with underlying pleural effusion and also an concomitant advanced COPD as noted. A lengthy bedside discussion was undertaken with the daughter, Glory, regarding the plan of care as noted. We will follow and advise accordingly. Lauryn Chandra MD
[2017-05-29 05:44] LABS: HEMATOCRIT 31.3 % (34.0-47.0); MEAN CELL VOLUME 104.7 fl (81.0-99.0); MEAN CORPUSCULAR HGB CONC 30.6 g/dL (33.0-37.0); RED CELL DISTRIBUTION WIDTH 18.8 % (11.5-14.5)
[2017-05-29 05:52] LABS: BLOOD UREA NITROGEN 27 mg/dl (7-17); CALCIUM 8.7 mg/dL (8.4-10.2); CARBON DIOXIDE 34 mmol/L (22-30); CHLORIDE 96 mmol/L (98-107); GFR AFRICAN-AMERICAN > 60; GLUCOSE,RANDOM 132 mg/dL (65-105); POTASSIUM 3.6 MMOL/L (3.6-5.0); SODIUM 142 mmol/l (132-148)
[2017-05-29] MEDS: Insulin Regular 100 units/ml SC SCH ×4 (06:38→21:08)
--- NOTE | 2017-05-29 06:42 | CP.CCUPN ---
CCU Subjective - Physician Review Subjective (Free Text): Mostly observed sleeping, but easily awakens to verbal stimuli and initially mildly confused, but easily is re-oriented to place and time, no distress, minor adjustments to HFNC made overnight, back to 36% oxygen and 38 LPM flow with SPO2 maintained at above 92% , at 97% now. No alarm events on telemetry monitoring with especially tachyarryhthmias. Other vitals and I/O's reviewed. No fever spikes noted, temps mostly 98F. I/O's remain sliht;y positive, despite excellent urine output. ROS: Mild headaches, relieved with Tylenol. No other pertinent negs or positives on 10+ system review. PMSFH: Underwent R thoracentesis 3 weeks ago (05/14). All Nursing and physician documentation reviewed to date; no new pertinent info noted relevant to current medical problems. MAJOR PROBLEMS: 1. Acute Hypercapneic Resp Failure 2 Decompensated L-CHF / Cardiomyopathy; r/ oed AMI 2. Chronic A fib on AC 3. Chronic Disease Anemia / Thrombocytopenia 4. Dementia / Delirium 5. DM II PLAN: 1. AICD anti-tachy therapies discontinued as per consensus agreement between all of patient's children yesterday AM during a [address] phone conference. 2. Serial CXR films from 05/25-05/28 show bilat basilar interstitial changes, predominantly on R side. No new fevers nor leukocytosis noted with these interstitial changes. 3. BP levels remain stable and slightly better over the past 24H, off Milrinone. 4. On Lasix, Spironolactone and Diamox. Overall I/Os have not been negative since 05/25/17. Renal fx stable on current Lasix dosing at 60mg q12H. 5. Coags reviewed, INR 1.5, but Eliquis has been resumed. 6. Daughter has mentioned possibly discontinuing opthalmic BBs (Timolol), will discuss with Cardiology. 7. DNR/DNI status. CCU Objective - Vital Signs / Intake & Output Vital Signs (Last 4 hours): Vital Signs Temp Pulse Resp BP Pulse Ox 05/29/17 06:00 76 19 120/58 L 98 05/29/17 04:43 22 05/29/17 04:00 97.6 F 76 22 138/69 94 L Intake and Output (Last 8hrs): Intake & Output 05/28/17 05/28/17 05/29/17 14:59 22:59 06:59 Intake Total 350 520 40 Output Total 450 100 Balance -100 420 40 Intake: IV 0 Oral 350 520 40 Output: Urine 450 100 Urethral (Mackey) 450 100 - Physical Exam Head: Positive for: Normocephalic Pupils: Positive for: PERRL Extroacular Muscles: Positive for: EOMI Conjunctiva: Positive for: Normal. Negative for: Icteric Mouth: Positive for: Moist Mucous Membranes Pharnyx: Positive for: Normal Neck: Positive for: Normal Range of Motion, JVD. Negative for: Bruit Respiratory/Chest: Positive for: Respiratory Distress (mild dyspnea), Rhonchi ( bilateral). Negative for: Accessory Muscle Use, Wheezes Cardiovascular: Positive for: Regular Rate and Rhythm (Paced), Murmurs ( systolic murmur), Irregular Rhythm, Peripheal Pulses Present. Negative for: Rub Abdomen: Positive for: Normal Bowel Sounds. Negative for: Tenderness, Distention Upper Extremity: Positive for: Edema (mostly LUE) Lower Extremity: Positive for: Edema. Negative for: CALF TENDERNESS, Cyanosis Neurological: Positive for: Speech Normal, Motor Func Grossly Intact, Normal Sensory Function Skin: Positive for: Warm, Pale. Negative for: Rashes Psychiatric: Positive for: Oriented x 3 - Medications Active Medications: Active Medications Generic Name Dose Route Start Last Admin Trade Name Freq PRN Reason Stop Dose Admin Acetaminophen 325 mg 05/24/17 12:33 05/28/17 19:26 Tylenol 325mg Tab PO 325 mg Q6H PRN Administration Headache Acetazolamide 500 mg 05/28/17 09:56 05/28/17 16:09 Diamox 250 Mg Tab PO 500 mg BIDWM [facility] Administration Allopurinol 100 mg 05/25/17 09:00 05/28/17 08:49 Zyloprim PO 100 mg DAILY [facility] Administration Apixaban 2.5 mg 05/27/17 17:45 05/28/17 16:09 Eliquis PO 2.5 mg BID [facility] Administration Protocol Benzonatate 200 mg 05/24/17 12:33 05/25/17 16:26 Tessalon Perles PO 200 mg TID PRN Administration Cough Carvedilol 3.125 mg 05/23/17 21:00 05/28/17 21:04 Coreg PO 3.125 mg Q12 [facility] Administration Ferrous Sulfate 325 mg 05/24/17 17:00 05/28/17 16:10 Feosol PO 325 mg BID [facility] Administration Furosemide 60 mg 05/23/17 21:00 05/28/17 08:47 Lasix IV 60 mg Q12 [facility] Administration Glipizide 10 mg 05/25/17 16:30 05/29/17 06:39 Glucotrol PO 10 mg BIDAC [facility] Administration Home Med 1 drop 05/24/17 17:00 05/28/17 16:08 Cyclosporine [Restasis] BOTHEYES 1 drop BID [facility] Administration Home Med 1 drop 05/24/17 17:00 05/28/17 16:09 Dorzolamide 2%/Timolol 0.5% [Cosopt 2%-0.5% Opht] EACHEYE 1 drop BID [facility] Administration Home Med 1 drop 05/24/17 22:00 05/28/17 21:03 Tafluprost/Pf [Zioptan 0.0015% Eye Drops] EACHEYE 1 drop HS [facility] Administration Hydrocortisone 1 applic 05/24/17 17:00 05/28/17 16:08 Anusol-Hc ND 1 applic BID [facility] Administration Insulin Detemir 6 units 05/27/17 09:00 05/28/17 08:48 Levemir SC 6 units DAILY [facility] Administration Insulin Human Regular 0 units 05/25/17 16:30 05/29/17 06:38 Humulin R SC Not Given ACHS [facility] Protocol Levalbuterol HCl 0.63 mg 05/23/17 21:00 05/28/17 23:55 Xopenex INH 0.63 mg RQ8 [facility] Administration Levalbuterol HCl 0.63 mg 05/24/17 12:40 05/25/17 02:39 Xopenex INH 0.63 mg RQ8 PRN Administration Shortness of Breath Multivitamins/Minerals 1 tab 05/25/17 09:00 05/28/17 08:49 Therapeutic-M Tab PO 1 tab DAILY [facility] Administration Pantoprazole Sodium 40 mg 05/29/17 09:00 Protonix Ec Tab PO DAILY [facility] Saccharomyces Boulardii 250 mg 05/24/17 17:00 05/28/17 16:10 Florastor PO 250 mg BID [facility] Administration Sitagliptin Phosphate 50 mg 05/25/17 09:00 05/28/17 08:47 Januvia PO 50 mg DAILY [facility] Administration Spironolactone 50 mg 05/28/17 10:00 05/28/17 12:11 Aldactone PO 50 mg DAILY [facility] Administration - Patient Studies Lab Studies: Lab Studies 05/29/17 05/29/17 05/29/17 Range/Units 05:51 04:45 04:45 WBC 6.0 (4.8-10.8) K/uL RBC 2.99 L (3.80-5.20) Mil/uL Hgb 9.6 L (12.0-16.0) g/dL Hct 31.3 L (34.0-47.0) % MCV 104.7 H (81.0-99.0) fl MCH 32.0 H (27.0-31.0) pg MCHC 30.6 L (33.0-37.0) g/dL RDW 18.8 H (11.5-14.5) % Plt Count 117 L (130-400) K/uL Sodium 142 (132-148) mmol/l Potassium 3.6 (3.6-5.0) MMOL/L Chloride 96 L (98-107) mmol/L Carbon Dioxide 34 H (22-30) mmol/L Anion Gap 16 (10-20) BUN 27 H (7-17) mg/dl Creatinine 1.0 (0.7-1.2) mg/dL Est GFR ( Amer) > 60 Est GFR (Non-Af Amer) 52 POC Glucose (mg/dL) 146 H (65-110) mg/dL Random Glucose 132 H (65-105) mg/dL Calcium 8.7 (8.4-10.2) mg/dL 05/28/17 05/28/17 05/28/17 Range/Units 21:00 16:26 11:20 WBC (4.8-10.8) K/uL RBC (3.80-5.20) Mil/uL Hgb (12.0-16.0) g/dL Hct (34.0-47.0) % MCV (81.0-99.0) fl MCH (27.0-31.0) pg MCHC (33.0-37.0) g/dL RDW (11.5-14.5) % Plt Count (130-400) K/uL Sodium (132-148) mmol/l Potassium (3.6-5.0) MMOL/L Chloride (98-107) mmol/L Carbon Dioxide (22-30) mmol/L Anion Gap (10-20) BUN (7-17) mg/dl Creatinine (0.7-1.2) mg/dL Est GFR ( Amer) Est GFR (Non-Af Amer) POC Glucose (mg/dL) 203 H 185 H 213 H (65-110) mg/dL Random Glucose (65-105) mg/dL Calcium (8.4-10.2) mg/dL Laboratory Results - last 24 hr 05/28/17 05/28/17 05/28/17 11:20 16:26 21:00 WBC RBC Hgb Hct MCV MCH MCHC RDW Plt Count Sodium Potassium Chloride Carbon Dioxide Anion Gap BUN Creatinine Est GFR ( Amer) Est GFR (Non-Af Amer) POC Glucose (mg/dL) 213 H 185 H 203 H Random Glucose Calcium 05/29/17 05/29/17 05/29/17 04:45 04:45 05:51 WBC 6.0 RBC 2.99 L Hgb 9.6 L Hct 31.3 L MCV 104.7 H MCH 32.0 H MCHC 30.6 L RDW 18.8 H Plt Count 117 L Sodium 142 Potassium 3.6 Chloride 96 L Carbon Dioxide 34 H Anion Gap 16 BUN 27 H Creatinine 1.0 Est GFR ( Amer) > 60 Est GFR (Non-Af Amer) 52 POC Glucose (mg/dL) 146 H Random Glucose 132 H Calcium 8.7 Fingerstick Blood Sugar Results: 146 Review of Systems - Review of Systems All systems: reviewed and no additional remarkable complaints except (as above) Critical Care Progress Note - Extremities/Vascular Does the Patient have a Central Venous Catheter?: No Does the Patient need a Central Venous Catheter?: No Does the Patient have a Mackey Catheter?: Yes Does the Patient need a Mackey Catheter?: Yes Catheter Insertion Criteria: Need for accurate measurement of output in critically ill patient - Prophylaxis GI Prophylaxis GI: PPI - Prophylaxis DVT Prophylaxis DVT: SCDs (and Eliquis) - Nutrition Nutrition: Nutrition Category Date Time Status Dysphagia/Modified Consistency Diet [DIET] Diets 05/23/17 Dinner Active
[2017-05-29] MEDS: Levalbuterol 0.63 MG/3 ML Inhal Soln UD INH SCH ×3 (08:18→23:43)
[2017-05-29] MEDS: Hydrocortisone 2.5% (Rectal) CREAM PR SCH ×2 (08:30→16:05)
[2017-05-29] MEDS: Patient's Own Med (Cyclosporine [Restasis] 1 DROP) BOTHEYES SCH ×2 (08:31→16:05)
[2017-05-29] MEDS: Patient's Own Med (Dorzolamide 2%/Timolol 0.5% [Cosopt 2%-0.5% Opht] 1 DROP) EACHEYE SCH (08:31)
[2017-05-29] MEDS: Saccharomyces Boulardi 250 mg Cap PO SCH ×2 (08:32→16:06)
[2017-05-29] MEDS: Insulin Detemir 100 Units/ml Inj SC SCH (08:33)
[2017-05-29] MEDS: Pantoprazole 40 mg EC Tab PO SCH (08:33)
[2017-05-29] MEDS: Multivitamin With Minerals Tab PO SCH (08:34)
--- NOTE | 2017-05-29 08:48 | CP.PCM.PN ---
Subjective - Date & Time of Evaluation Date of Evaluation: 05/29/17 Time of Evaluation: 08:26 - Subjective Subjective: Interim events reviewed and discussed with chief hydroelectric station operator. Patient remains on HFNC @ 38% oxygen, had episode of desaturation last night. Congested cough noted, non-productive. Patient appears fatigued, awakens easily and follows simple commands. Vital signs and I&O reviewed, remains afebrile, no leukocytosis. PCXR yesterday showed persistent right basal density c/w pleural effusion. Dependant edema is gradually decreasing, no peripheral or central cyanosis. Neck is supple and trachea remains midline. No dullness on percussion of the anterior chest wall. Breath sounds are diminished bilaterally, absent in the right base. Sonorous rhonchi are heard in the lungs bilaterally w/o wheezes. Few medium rales are present in the LLL. Heart sounds are distant with regular rhythm. Right pleural effusion. COPD with chronic hypercapnea and hypoxemia. Cannot rule out an underlying pneumonia. Finding of mastoiditis (L) raised by chief hydroelectric station operator seen on previous CT brain. Will discuss further with ID, consider repeat CT mastoids (would ask to include chest). Objective - Vital Signs/Intake and Output Vital Signs (last 24 hours): Temp Pulse Resp BP Pulse Ox 97.6 F 76 20 120/58 L 98 05/29/17 04:00 05/29/17 06:00 05/29/17 08:13 05/29/17 06:00 05/29/17 06:00 Intake and Output: 05/28/17 05/29/17 23:59 11:59 Intake Total 770 140 Output Total 400 Balance 370 140 - Medications Medications: Current Medications Acetaminophen (Tylenol 325mg Tab) 325 mg PO Q6H PRN PRN Reason: Headache Last Admin: 05/28/17 19:26 Dose: 325 mg Acetazolamide (Diamox 250 Mg Tab) 500 mg PO BIDWM [facility]IS Last Admin: 05/28/17 16:09 Dose: 500 mg Allopurinol (Zyloprim) 100 mg PO DAILY [facility] Last Admin: 05/28/17 08:49 Dose: 100 mg Apixaban (Eliquis) 2.5 mg PO BID [facility] PRN Reason: Protocol Last Admin: 05/28/17 16:09 Dose: 2.5 mg Benzonatate (Tessalon Perles) 200 mg PO TID PRN PRN Reason: Cough Last Admin: 05/25/17 16:26 Dose: 200 mg Carvedilol (Coreg) 3.125 mg PO Q12 [facility] Last Admin: 05/28/17 21:04 Dose: 3.125 mg Ferrous Sulfate (Feosol) 325 mg PO BID [facility] Last Admin: 05/28/17 16:10 Dose: 325 mg Furosemide (Lasix) 60 mg IV Q12 [facility] Last Admin: 05/28/17 21:04 Dose: 60 mg Glipizide (Glucotrol) 10 mg PO BIDAC [facility] Last Admin: 05/29/17 06:39 Dose: 10 mg Home Med (Cyclosporine [Restasis]) 1 drop BOTHEYES BID [facility] Last Admin: 05/28/17 16:08 Dose: 1 drop Home Med (Dorzolamide 2%/Timolol 0.5% [Cosopt 2%-0.5% Opht]) 1 drop EACHEYE BID [facility] Last Admin: 05/28/17 16:09 Dose: 1 drop Home Med (Tafluprost/Pf [Zioptan 0.0015% Eye Drops]) 1 drop EACHEYE HS [facility] Last Admin: 05/28/17 21:03 Dose: 1 drop Hydrocortisone (Anusol-Hc) 1 applic RI BID [facility] Last Admin: 05/28/17 16:08 Dose: 1 applic Insulin Detemir (Levemir) 6 units SC DAILY [facility] Last Admin: 05/28/17 08:48 Dose: 6 units Insulin Human Regular (Humulin R) 0 units SC ACHS [facility] PRN Reason: Protocol Last Admin: 05/29/17 06:38 Dose: Not Given Levalbuterol HCl (Xopenex) 0.63 mg INH RQ8 [facility] Last Admin: 05/29/17 08:18 Dose: 0.63 mg Levalbuterol HCl (Xopenex) 0.63 mg INH RQ8 PRN PRN Reason: Shortness of Breath Last Admin: 05/25/17 02:39 Dose: 0.63 mg Multivitamins/Minerals (Therapeutic-M Tab) 1 tab PO DAILY [facility] Last Admin: 05/28/17 08:49 Dose: 1 tab Pantoprazole Sodium (Protonix Ec Tab) 40 mg PO DAILY [facility] Saccharomyces Boulardii (Florastor) 250 mg PO BID [facility] Last Admin: 05/28/17 16:10 Dose: 250 mg Sitagliptin Phosphate (Januvia) 50 mg PO DAILY [facility] Last Admin: 05/28/17 08:47 Dose: 50 mg Spironolactone (Aldactone) 50 mg PO DAILY [facility] Last Admin: 05/28/17 12:11 Dose: 50 mg - Labs Labs: 05/29/17 04:45 05/29/17 04:45 PT 16.0 Seconds (9.8-13.1) H 05/28/17 04:55 INR 1.5 (0.9-1.2) H 05/28/17 04:55 APTT 34.3 Seconds (25.6-37.1) 05/28/17 04:55 Assessment and Plan (1) Chronic respiratory failure with hypoxia and hypercapnia Status: Chronic (2) CHF (congestive heart failure) Status: Chronic (3) COPD (chronic obstructive pulmonary disease) Status: Chronic (4) Pulmonary hypertension Status: Chronic
--- NOTE | 2017-05-29 11:18 | CP.PCM.PN ---
Subjective - Date & Time of Evaluation Date of Evaluation: 05/29/17 Time of Evaluation: 10:40 - Subjective Subjective: Appears fatigued, falls asleep in the middle of conversation Has a cough and has bronchial secretions but too feeble to raise them Has O2 supplement with HF nasal canula O2 saturation fluctuates between 92 and 97% VVI paced rhythm at 72 BPM (a fib in the background) BP 106/70 mm Hg No redness or tenderness over mastoids JVP flat, mild sacral oedema Coarse crepitetions+/Occ rhonchi Apical syst murmur of MR+ Intake/out put noted Labs noted (No leucocytosis ) Pt has clinical picture of profound CHF and severe resp insufficiency Family agreed with request of DNR With their agreement AICD function was diabled Old CT head was reviewed with the radiologist re mention of "Mastoiditis" in the report It was felt this represented an "over read" and a correction is being written to indicate no mastoiditis exists Pt is going down for a repeat CT of the head. Pt's daughter anxious about use of beta blockers eye drops for managing glaucoma (becase it slows the heart rate), in spite of being reassured that pt has a pacemaker Case discussed at length with Elba and Martir Pt's son present during examination Objective - Vital Signs/Intake and Output Vital Signs (last 24 hours): Temp Pulse Resp BP Pulse Ox 97.8 F 78 24 105/56 L 97 05/29/17 08:00 05/29/17 10:00 05/29/17 10:00 05/29/17 10:00 05/29/17 10:00 Intake and Output: 05/29/17 05/29/17 06:59 18:59 Intake Total 210 25 Output Total 65 Balance 210 -40 - Medications Medications: Current Medications Acetaminophen (Tylenol 325mg Tab) 325 mg PO Q6H PRN PRN Reason: Headache Last Admin: 05/28/17 19:26 Dose: 325 mg Acetazolamide (Diamox 250 Mg Tab) 500 mg PO BIDWM [facility] Last Admin: 05/29/17 08:31 Dose: 500 mg Allopurinol (Zyloprim) 100 mg PO DAILY [facility] Last Admin: 05/29/17 08:34 Dose: 100 mg Apixaban (Eliquis) 2.5 mg PO BID [facility] PRN Reason: Protocol Last Admin: 05/29/17 08:31 Dose: 2.5 mg Benzonatate (Tessalon Perles) 200 mg PO TID PRN PRN Reason: Cough Last Admin: 05/25/17 16:26 Dose: 200 mg Carvedilol (Coreg) 3.125 mg PO Q12 [facility] Last Admin: 05/29/17 08:30 Dose: 3.125 mg Ferrous Sulfate (Feosol) 325 mg PO BID [facility] Last Admin: 05/29/17 08:32 Dose: 325 mg Furosemide (Lasix) 60 mg IV Q12 [facility] Last Admin: 05/29/17 08:32 Dose: 60 mg Glipizide (Glucotrol) 10 mg PO BIDAC [facility] Last Admin: 05/29/17 06:39 Dose: 10 mg Home Med (Cyclosporine [Restasis]) 1 drop BOTHEYES BID [facility] Last Admin: 05/29/17 08:31 Dose: 1 drop Home Med (Dorzolamide 2%/Timolol 0.5% [Cosopt 2%-0.5% Opht]) 1 drop EACHEYE BID [facility] Last Admin: 05/29/17 08:31 Dose: 1 drop Home Med (Tafluprost/Pf [Zioptan 0.0015% Eye Drops]) 1 drop EACHEYE HS [facility] Last Admin: 05/28/17 21:03 Dose: 1 drop Hydrocortisone (Anusol-Hc) 1 applic MS BID [facility] Last Admin: 05/29/17 08:30 Dose: 1 applic Insulin Detemir (Levemir) 6 units SC DAILY [facility] Last Admin: 05/29/17 08:33 Dose: 6 units Insulin Human Regular (Humulin R) 0 units SC ACHS [facility] PRN Reason: Protocol Last Admin: 05/29/17 06:38 Dose: Not Given Levalbuterol HCl (Xopenex) 0.63 mg INH RQ8 [facility] Last Admin: 05/29/17 08:18 Dose: 0.63 mg Levalbuterol HCl (Xopenex) 0.63 mg INH RQ8 PRN PRN Reason: Shortness of Breath Last Admin: 05/25/17 02:39 Dose: 0.63 mg Multivitamins/Minerals (Therapeutic-M Tab) 1 tab PO DAILY [facility] Last Admin: 05/29/17 08:34 Dose: 1 tab Pantoprazole Sodium (Protonix Ec Tab) 40 mg PO DAILY [facility] Last Admin: 05/29/17 08:33 Dose: 40 mg Saccharomyces Boulardii (Florastor) 250 mg PO BID [facility] Last Admin: 05/29/17 08:32 Dose: 250 mg Sitagliptin Phosphate (Januvia) 50 mg PO DAILY [facility] Last Admin: 05/29/17 08:32 Dose: 50 mg Spironolactone (Aldactone) 50 mg PO DAILY [facility] Last Admin: 05/29/17 08:30 Dose: 50 mg - Labs Labs: 05/29/17 04:45 05/29/17 04:45 PT 16.0 Seconds (9.8-13.1) H 05/28/17 04:55 INR 1.5 (0.9-1.2) H 05/28/17 04:55 APTT 34.3 Seconds (25.6-37.1) 05/28/17 04:55
--- NOTE | 2017-05-29 11:52 | CT ---
PROCEDURE: CT Chest without contrast HISTORY: assess for R effusion COMPARISON: None. TECHNIQUE: Contiguous axial images were obtained through the chest without intravenous contrast enhancement. Sagittal and coronal reconstructions were performed. Radiation dose (DLP): 328.96 mGy-cm. This CT exam was performed using one or more of the following dose reduction techniques: Automated exposure control, adjustment of the mA and/or kV according to patient size, and/or use of iterative reconstruction technique. FINDINGS: LUNGS: Extensive right lower lobe segmental/lobar atelectasis. This is due in part to adjacent pleural effusion. There is soft tissue density seen within the posterior right lower lobe segmental bronchus which may reflect mucous plugging. There is some soft tissue also seen within the proximal right lower lobe bronchus. There is aerated bronchus distal to this point, however. Again, this may represent mucus. There is focal pleural thickening versus atelectasis in the superior left lower lobe, posterior medially. There is focal small airways disease in the superior segment left lower lobe. There is no other consolidation identified. Evaluation of the parenchyma is somewhat limited due to respiratory motion artifact. There is a 5 mm subpleural nodule in the right middle lobe. There is a 2 mm calcified granuloma in the right middle lobe. . MEDIASTINUM: No aneurysmal dilatation of the ascending thoracic aorta. There is dilatation of the main pulmonary artery to a diameter of 3.5 cm, which may rib correlate with pulmonary arterial hypertension. The heart is markedly enlarged. The patient is status post CABG. There is an AICD present. Mildly enlarged mediastinal lymph nodes without significant adenopathy. No evidence of hilar lymphadenopathy though evaluation is limited by the absence of intravenous contrast. PLEURA: Moderate right pleural effusion. No left pleural effusion. No pneumothorax. BONES: No fracture. No destructive lesion. UPPER ABDOMEN: Probable left upper pole renal cyst, only partially included in this examination. OTHER FINDINGS: None. IMPRESSION: Moderate right pleural effusion. Extensive right lower lobe atelectasis though there is some remaining aerated lower lobe. Possible mucous plugging in segmental bronchi of right lower lobe. Marked cardiomegaly. CABG. AICD. Dilated main pulmonary artery. Please correlate for possible pulmonary arterial hypertension.
--- NOTE | 2017-05-29 12:21 | CT ---
PROCEDURE: CT HEAD WITHOUT CONTRAST. HISTORY: f/u Left Mastoiditis COMPARISON: None available. TECHNIQUE: Axial computed tomography images were obtained through the head/brain without intravenous contrast. Radiation dose: Total exam DLP = 884.42 mGy-cm. This CT exam was performed using one or more of the following dose reduction techniques: Automated exposure control, adjustment of the mA and/or kV according to patient size, and/or use of iterative reconstruction technique. FINDINGS: Examination limited due to extensive patient motion artifact. Evaluation of the posterior fossa is particularly limited. HEMORRHAGE: No intracranial hemorrhage. BRAIN: No mass effect or edema. Moderate diffuse atrophy. There is ventricular dilatation unchanged in extent from prior examination. This is likely due to central atrophy. No evidence of obstructive hydrocephalus. No midline shift. No evidence of acute infarct. VENTRICLES: As above CALVARIUM: Unremarkable. PARANASAL SINUSES: Unremarkable as visualized. No significant inflammatory changes. MASTOID AIR CELLS: Trace left mastoid effusion. Incidentally noted soft tissue density in left external auditory canal most likely reflects cerumen. OTHER FINDINGS: None. IMPRESSION: No intracranial mass, hemorrhage or evidence of acute infarct. Probable ex vacuo ventricular dilatation. Moderate atrophy. Trace left mastoid effusion, diminished compared to prior CT examination. .
--- NOTE | 2017-05-29 13:26 | CT ---
PROCEDURE: CT OF THE TEMPORAL BONES WITHOUT CONTRAST HISTORY: f/u Left Mastoiditis COMPARISON: Head CT dated 05/29/2017 as well as 05/12/2017. No prior temporal bone CT available comparison. TECHNIQUE: High resolution axial images of the temporal bones were obtained. Coronal and sagittal reformats were generated. Radiation dose: Total exam DLP = 687 mGy-cm. This CT exam was performed using one or more of the following dose reduction techniques: Automated exposure control, adjustment of the mA and/or kV according to patient size, and/or use of iterative reconstruction technique. FINDINGS: Motion artifacts degrade this exam to some degree. RIGHT TEMPORAL BONE: RIGHT MIDDLE EAR: Normal. RIGHT INNER EAR: Cochlea: Normal. Semicircular canals: Normal. RIGHT MASTOID AIR CELLS: Normal. RIGHT INTERNAL AUDITORY CANAL: Normal. RIGHT EXTERNAL AUDITORY CANAL: Trace debris is seen at the distal segment near the pinna potentially reflecting cerumen or possibly desquamated skin. RIGHT VESTIBULAR AND COCHLEAR AQUEDUCT: Normal. OTHER FINDINGS: None. LEFT TEMPORAL BONE: LEFT MIDDLE EAR: Normal. LEFT INNER EAR: Cochlea: Normal. Semicircular canals: Normal. LEFT MASTOID AIR CELLS: Effusions are noted affecting the inferior mastoid air cells with the mid and upper segments widely aerated. No lytic or blastic bony changes are associated and local soft tissues appear grossly nonfocal. No reactive local soft tissue changes appreciated. LEFT INTERNAL AUDITORY CANAL: Normal. LEFT EXTERNAL AUDITORY CANAL: Loosen soft tissues appreciated most suggestive of probable cerumen throughout the lateral half of the left external auditory canal. LEFT VESTIBULAR AND COCHLEAR AQUEDUCTS: Normal. OTHER FINDINGS: None. IMPRESSION: 1. Limited infusion is appreciated affecting the inferior left mastoid air cells with the remainder normal-appearing. No bony erosion or local soft tissue reaction associated. 2. Likely bilateral cerumen eosinophilic greater at the left than on the right external auditory canals. 3. The remainder of the the examination appears unremarkable.
[2017-05-29] MEDS: TAFLUPROST EACHEYE SCH (21:07)
--- NOTE | 2017-05-30 00:35 | PN ---
SUBJECTIVE: This is an 87-year-old female with recent congestive heart failure and underlying COPD with supervening pleural effusion and underwent a thoracentesis procedure as noted thereof and is being followed closely in the ICU for hemodynamic monitoring. She is also being followed closely for recent uncontrolled type 2 insulin-requiring diabetes as noted. Today's glucose values are fluctuating, but improved and the latest glucose levels have ranged from 133 to 146 and 257 mg/dL. Her latest chemistry showed a BUN of 27, sodium 142, potassium 3.6, chloride 96, CO2 of 34, glucose 132, and creatinine 1.0. So, at this time, we will continue the basal insulin, given Levemir as 6 units subcu at 9 a.m. daily as ordered. We will also continue the dual oral hypoglycemic therapy with glipizide, given as 10 mg b.i.d. before meals and Januvia as 50 mg once daily as ordered. We will continue the low-dose correction scale using Regular insulin as given. We will obtain serial chemistries and supplement accordingly needed. We will follow this. Lauryn Chandra MD
--- NOTE | 2017-05-30 06:41 | CP.CCUPN ---
CCU Subjective - Physician Review Subjective (Free Text): Predominantly sleeps and awakens now with loud name calling and tactile stimuli , requires a bit of time to be re-oriented to place and time, noted to be more interactive with family at the bedside, no distress nor progressive hypoxemia on 35% oxygen and 35LPM HFNC. Remains on 1:1 observation for agitation , she did have episodes yesterday with mild agitation and trying to take nasal cannula off. No alarm events on telemetry monitoring with any tachyarryhthmias. Other vitals and I/O's reviewed. No fever spikes noted, temps mostly 98F. I/O's negative 460ml last 24H. ROS: Mild headaches, relieved with Tylenol. No other pertinent negs or positives on 10+ system review. PMSFH: Underwent R thoracentesis 3 weeks ago (05/14). All Nursing and physician documentation reviewed to date; no new pertinent info noted relevant to current medical problems. MAJOR PROBLEMS: 1. Acute Hypercapneic Resp Failure 2 Decompensated L-CHF / Cardiomyopathy; r/ oed AMI 2. Chronic A fib on AC 3. Chronic Disease Anemia / Thrombocytopenia 4. Dementia / Delirium 5. DM II PLAN: 1. CT head from 05/12 was reported showing Left mastoiditis. Repeat w/u for this is negative. 2. Additional CT studies done yesterday with CT chest now shows an appreciable re-accumulation of fluid in R chest that is amenable to thoraceneteis. IR eval and procedure scheduled for today. Eliquis on hold. Will discuss with family need for possible PICC as well. 3. AICD anti-tachy therapies discontinued as per consensus agreement between all of patient's children. 4. BP levels remain stable over the past 24H, off Milrinone. 5. On Lasix, Spironolactone and Diamox. Renal fx stable on current Lasix dosing at 60mg q12H. 6. DNR/DNI status. CCU Objective - Vital Signs / Intake & Output Vital Signs (Last 4 hours): Vital Signs Temp Pulse Resp BP Pulse Ox 05/30/17 06:00 81 24 117/85 98 05/30/17 04:00 97.6 F 86 20 125/67 93 L 05/30/17 03:58 23 Intake and Output (Last 8hrs): Intake & Output 0905/29/17 05/30/17 14:59 22:59 06:59 Intake Total 25 200 300 Output Total 225 110 650 Balance -200 90 -350 Intake: Oral 25 200 300 Output: Urine 225 110 650 Urethral (Mackey) 225 110 650 - Physical Exam Head: Positive for: Normocephalic Pupils: Positive for: PERRL Extroacular Muscles: Positive for: EOMI Conjunctiva: Positive for: Normal. Negative for: Icteric Mouth: Positive for: Moist Mucous Membranes Pharnyx: Positive for: Normal Neck: Positive for: Normal Range of Motion, JVD. Negative for: Bruit Respiratory/Chest: Positive for: Respiratory Distress (mild dyspnea), Rhonchi ( bilateral). Negative for: Accessory Muscle Use, Wheezes Cardiovascular: Positive for: Regular Rate and Rhythm (Paced), Murmurs ( systolic murmur), Irregular Rhythm, Peripheal Pulses Present. Negative for: Rub Abdomen: Positive for: Normal Bowel Sounds. Negative for: Tenderness, Distention Upper Extremity: Positive for: Edema (mostly LUE) Lower Extremity: Positive for: Edema. Negative for: CALF TENDERNESS, Cyanosis Neurological: Positive for: Speech Normal, Motor Func Grossly Intact, Normal Sensory Function Skin: Positive for: Warm, Pale. Negative for: Rashes Psychiatric: Positive for: Oriented x 3 - Medications Active Medications: Active Medications Generic Name Dose Route Start Last Admin Trade Name Freq PRN Reason Stop Dose Admin Acetaminophen 325 mg 05/24/17 12:33 05/28/17 19:26 Tylenol 325mg Tab PO 325 mg Q6H PRN Administration Headache Acetazolamide 500 mg 05/28/17 09:56 05/29/17 16:05 Diamox 250 Mg Tab PO 500 mg BIDWM [facility] Administration Allopurinol 100 mg 05/25/17 09:00 05/29/17 08:34 Zyloprim PO 100 mg DAILY [facility] Administration Apixaban 2.5 mg 05/27/17 17:45 05/29/17 08:31 Eliquis PO 2.5 mg BID [facility] Administration Protocol Benzonatate 200 mg 05/24/17 12:33 05/25/17 16:26 Tessalon Perles PO 200 mg TID PRN Administration Cough Carvedilol 3.125 mg 05/23/17 21:00 05/29/17 21:07 Coreg PO 3.125 mg Q12 [facility] Administration Ferrous Sulfate 325 mg 05/24/17 17:00 05/29/17 16:06 Feosol PO 325 mg BID [facility] Administration Furosemide 60 mg 05/23/17 21:00 05/29/17 21:06 Lasix IV 60 mg Q12 [facility] Administration Glipizide 10 mg 05/25/17 16:30 05/29/17 16:06 Glucotrol PO 10 mg BIDAC [facility] Administration Home Med 1 drop 05/24/17 17:00 05/29/17 16:05 Cyclosporine [Restasis] BOTHEYES Not Given BID [facility] Home Med 1 drop 05/24/17 17:00 05/29/17 08:31 Dorzolamide 2%/Timolol 0.5% [Cosopt 2%-0.5% Opht] EACHEYE 1 drop BID [facility] Administration Home Med 1 drop 05/24/17 22:00 05/29/17 21:07 Tafluprost/Pf [Zioptan 0.0015% Eye Drops] EACHEYE 1 drop HS [facility] Administration Hydrocortisone 1 applic 05/24/17 17:00 05/29/17 16:05 Anusol-Hc NC 1 applic BID [facility] Administration Insulin Detemir 6 units 05/27/17 09:00 05/29/17 08:33 Levemir SC 6 units DAILY [facility] Administration Insulin Human Regular 0 units 05/25/17 16:30 05/29/17 21:08 Humulin R SC Not Given ACHS [facility] Protocol Levalbuterol HCl 0.63 mg 05/23/17 21:00 05/29/17 23:43 Xopenex INH 0.63 mg RQ8 [facility] Administration Levalbuterol HCl 0.63 mg 05/24/17 12:40 05/25/17 02:39 Xopenex INH 0.63 mg RQ8 PRN Administration Shortness of Breath Multivitamins/Minerals 1 tab 05/25/17 09:00 05/29/17 08:34 Therapeutic-M Tab PO 1 tab DAILY [facility] Administration Pantoprazole Sodium 40 mg 05/29/17 09:00 05/29/17 08:33 Protonix Ec Tab PO 40 mg DAILY [facility] Administration Saccharomyces Boulardii 250 mg 05/24/17 17:00 05/29/17 16:06 Florastor PO 250 mg BID [facility] Administration Sitagliptin Phosphate 50 mg 05/25/17 09:00 05/29/17 08:32 Januvia PO 50 mg DAILY [facility] Administration Spironolactone 50 mg 05/28/17 10:00 05/29/17 08:30 Aldactone PO 50 mg DAILY [facility] Administration - Patient Studies Lab Studies: Lab Studies 05/30/17 05/29/17 05/29/17 Range/Units 05:25 21:00 15:43 POC Glucose (mg/dL) 83 127 H 133 H (65-110) mg/dL Uric Acid (2.2-7.5) mg/Dl 05/29/17 05/29/17 Range/Units 10:58 09:48 POC Glucose (mg/dL) 257 H (65-110) mg/dL Uric Acid 8.0 H (2.2-7.5) mg/Dl Laboratory Results - last 24 hr 05/29/17 05/29/17 05/29/17 09:48 10:58 15:43 POC Glucose (mg/dL) 257 H 133 H Uric Acid 8.0 H 05/29/17 05/30/17 21:00 05:25 POC Glucose (mg/dL) 127 H 83 Uric Acid Fingerstick Blood Sugar Results: 127 Review of Systems - Review of Systems All systems: reviewed and no additional remarkable complaints except (as above) Critical Care Progress Note - Extremities/Vascular Does the Patient have a Central Venous Catheter?: No Does the Patient need a Central Venous Catheter?: Yes Does the Patient have a Mackey Catheter?: Yes Does the Patient need a Mackey Catheter?: Yes Catheter Insertion Criteria: Need for accurate measurement of output in critically ill patient - Prophylaxis GI Prophylaxis GI: PPI - Prophylaxis DVT Prophylaxis DVT: SCDs - Nutrition Nutrition: Nutrition Category Date Time Status Dysphagia/Modified Consistency Diet [DIET] Diets 05/23/17 Dinner Active
[2017-05-30] MEDS: Levalbuterol 0.63 MG/3 ML Inhal Soln UD INH SCH ×3 (07:15→15:39)
[2017-05-30] MEDS ORDERED: Lidocaine 1% Inj (20ml) ONE (10:00)
--- NOTE | 2017-05-30 10:19 | CP.PCM.PN ---
Subjective - Date & Time of Evaluation Date of Evaluation: 05/30/17 Time of Evaluation: 10:13 - Subjective Subjective: Seen in ICU prior to thoracentesis. Appears fatigued, tries to follow commands. Congested cough, but unable to expectorate. SpO2 94% on HFNC 35L/35%. Tried using PEP/CPT device; ineffective. No dullness to percussion of the anterior chest wall. No subcutaneous emphysema. Coarse sonorous rhonchi bilaterally. No audible wheezes or bronchial breath sounds. Breath sounds are absent in the RLL area posteriorly. Thoracenrtesis and PICC presently. Continue to urge coughing and try CPT. NT suctioning may be hazardous and arrhythmia inducing. Will follow post tapping. Objective - Vital Signs/Intake and Output Vital Signs (last 24 hours): Temp Pulse Resp BP Pulse Ox 97.4 F L 77 21 122/44 L 100 05/30/17 10:06 05/30/17 10:06 05/30/17 10:06 05/30/17 10:06 05/30/17 10:06 Intake and Output: 05/29/17 05/30/17 23:59 11:59 Intake Total 200 300 Output Total 270 650 Balance -70 -350 - Medications Medications: Current Medications Acetaminophen (Tylenol 325mg Tab) 325 mg PO Q6H PRN PRN Reason: Headache Last Admin: 05/28/17 19:26 Dose: 325 mg Acetazolamide (Diamox 250 Mg Tab) 500 mg PO BIDWM [facility] Last Admin: 05/29/17 16:05 Dose: 500 mg Allopurinol (Zyloprim) 100 mg PO DAILY [facility] Last Admin: 05/29/17 08:34 Dose: 100 mg Apixaban (Eliquis) 2.5 mg PO BID [facility] PRN Reason: Protocol Last Admin: 05/29/17 08:31 Dose: 2.5 mg Benzonatate (Tessalon Perles) 200 mg PO TID PRN PRN Reason: Cough Last Admin: 05/25/17 16:26 Dose: 200 mg Carvedilol (Coreg) 3.125 mg PO Q12 [facility] Last Admin: 05/29/17 21:07 Dose: 3.125 mg Ferrous Sulfate (Feosol) 325 mg PO BID [facility] Last Admin: 05/29/17 16:06 Dose: 325 mg Furosemide (Lasix) 60 mg IV Q12 [facility] Last Admin: 05/29/17 21:06 Dose: 60 mg Glipizide (Glucotrol) 10 mg PO BIDAC [facility] Last Admin: 05/29/17 16:06 Dose: 10 mg Home Med (Cyclosporine [Restasis]) 1 drop BOTHEYES BID [facility] Last Admin: 05/29/17 16:05 Dose: Not Given Home Med (Dorzolamide 2%/Timolol 0.5% [Cosopt 2%-0.5% Opht]) 1 drop EACHEYE BID [facility] Last Admin: 05/29/17 08:31 Dose: 1 drop Home Med (Tafluprost/Pf [Zioptan 0.0015% Eye Drops]) 1 drop EACHEYE HS [facility] Last Admin: 05/29/17 21:07 Dose: 1 drop Hydrocortisone (Anusol-Hc) 1 applic [place] BID [facility] Last Admin: 05/29/17 16:05 Dose: 1 applic Insulin Detemir (Levemir) 6 units SC DAILY [facility] Last Admin: 05/29/17 08:33 Dose: 6 units Insulin Human Regular (Humulin R) [address] [facility] PRN Reason: Protocol Last Admin: 05/29/17 21:08 Dose: Not Given Levalbuterol HCl (Xopenex) 0.63 mg INH RQ8 [facility] Last Admin: 05/30/17 07:15 Dose: 0.63 mg Levalbuterol HCl (Xopenex) 0.63 mg INH RQ8 PRN PRN Reason: Shortness of Breath Last Admin: 05/25/17 02:39 Dose: 0.63 mg Multivitamins/Minerals (Therapeutic-M Tab) 1 tab PO DAILY [facility] Last Admin: 05/29/17 08:34 Dose: 1 tab Pantoprazole Sodium (Protonix Ec Tab) 40 mg PO DAILY [facility] Last Admin: 05/29/17 08:33 Dose: 40 mg Saccharomyces Boulardii (Florastor) 250 mg PO BID [facility] Last Admin: 05/29/17 16:06 Dose: 250 mg Sitagliptin Phosphate (Januvia) 50 mg PO DAILY [facility] Last Admin: 05/29/17 08:32 Dose: 50 mg Spironolactone (Aldactone) 50 mg PO DAILY [facility] Last Admin: 05/29/17 08:30 Dose: 50 mg - Labs Labs: 05/29/17 04:45 05/29/17 04:45 PT 16.0 Seconds (9.8-13.1) H 05/28/17 04:55 INR 1.5 (0.9-1.2) H 05/28/17 04:55 APTT 34.3 Seconds (25.6-37.1) 05/28/17 04:55 Assessment and Plan (1) Chronic respiratory failure with hypoxia and hypercapnia Status: Chronic (2) CHF (congestive heart failure) Status: Chronic (3) COPD (chronic obstructive pulmonary disease) Status: Chronic (4) Pulmonary hypertension Status: Chronic
--- NOTE | 2017-05-30 10:31 | PCM.SURG1 ---
Surgeon's Initial Post Op Note - Surgeon's Notes Surgeon: Rudy Santiago All Source Intelligence: NONE Type of Anesthesia: Local Pre-Operative Diagnosis: Right pleural effusion, poor venous access Operative Findings: Patent right basilic vein for picc. Moderate right pleural effusion. Post-Operative Diagnosis: Right pleural effusion, poor venous access Operation Performed: Double lumen picc via right basilic vein, 34 cm. Tip is in the SVC. Right thoracentesis. Specimen/Specimens Removed: 700 cc of travis colored fluid Estimated Blood Loss: EBL {In ML}: 0 Blood Products Given: N/A Drains Used: No Drains Post-Op Condition: Fair Date of Surgery/Procedure: 05/30/17 Time of Surgery/Procedure: 10:30
[2017-05-30 10:34] LABS: BODY FLUID TYPE PLEURAL
[2017-05-30] MEDS ORDERED: Dextrose 50% SYRINGE Inj (50 ml) ONE (11:02)
[2017-05-30] MEDS ORDERED: Dextrose 50% SYRINGE Inj (50 ml) IVP ONE (11:05)
[2017-05-30] MEDS: Hydrocortisone 2.5% (Rectal) CREAM PR SCH ×2 (11:13→16:54)
[2017-05-30] MEDS: Patient's Own Med (Cyclosporine [Restasis] 1 DROP) BOTHEYES SCH ×2 (11:14→16:54)
[2017-05-30] MEDS: Saccharomyces Boulardi 250 mg Cap PO SCH ×2 (11:15→16:55)
[2017-05-30] MEDS: Insulin Regular 100 units/ml SC SCH ×3 (11:15→22:36)
[2017-05-30] MEDS: Insulin Detemir 100 Units/ml Inj SC SCH (11:17)
[2017-05-30] MEDS: Levalbuterol 0.63 MG/3 ML Inhal Soln UD INH PRN (12:21)
[2017-05-30 12:24] LABS: LDH,BODY FLUID 251 IU (NONE ESTABLISHED)
--- NOTE | 2017-05-30 12:30 | CP.PCM.PN ---
Subjective - Date & Time of Evaluation Date of Evaluation: 05/30/17 Time of Evaluation: 09:30 - Subjective Subjective: Pt seen before she left for pleural tap, with Dr. Mcmahan Coughs feebly too exhausted to expectorate effectively On Hiflow O2 supplement (35L with FiO2 of 35%), Pulse ox at 93-94% VVI paced rhythm with underlying A Fib (Eliquis held in anticipation of Pleural tap) BP 106/70 mm Hg Coarse crepitations with rhonchi Apical syst murmur of MR+ Stable from cardiac point of view. (Off pressors) Has profound congestive cardiac failure Poor prognosis explained to pt's son (who still remains anxious about the possibility of "mastoiditis" mentioned on an earlier CT head) Pt has a DNR order and AICD function has been turned off with pt's children's approval. Pt does not have a specific health care proxy Pt is back now in her room after having 700 ml pleural fluid removed from Rt pleura Vital signs stable. Objective - Vital Signs/Intake and Output Vital Signs (last 24 hours): Temp Pulse Resp BP Pulse Ox 97.4 F L 80 21 134/70 95 05/30/17 12:00 05/30/17 12:00 05/30/17 12:00 05/30/17 12:00 05/30/17 12:00 Intake and Output: 05/30/17 05/30/17 06:59 18:59 Intake Total 300 Output Total 650 80 Balance -350 -80 - Medications Medications: Current Medications Acetaminophen (Tylenol 325mg Tab) 325 mg PO Q6H PRN PRN Reason: Headache Last Admin: 05/28/17 19:26 Dose: 325 mg Acetazolamide (Diamox 250 Mg Tab) 500 mg PO BIDWM [facility] Last Admin: 05/30/17 11:15 Dose: Not Given Allopurinol (Zyloprim) 100 mg PO DAILY [facility] Last Admin: 05/29/17 08:34 Dose: 100 mg Apixaban (Eliquis) 2.5 mg PO BID [facility] PRN Reason: Protocol Last Admin: 05/29/17 08:31 Dose: 2.5 mg Benzonatate (Tessalon Perles) 200 mg PO TID PRN PRN Reason: Cough Last Admin: 05/25/17 16:26 Dose: 200 mg Carvedilol (Coreg) 3.125 mg PO Q12 [facility] Last Admin: 05/30/17 11:13 Dose: Not Given Ferrous Sulfate (Feosol) 325 mg PO BID [facility] Last Admin: 05/30/17 11:15 Dose: Not Given Furosemide (Lasix) 60 mg IV Q12 [facility] Last Admin: 05/30/17 11:16 Dose: 60 mg Glipizide (Glucotrol) 10 mg PO BIDAC [facility] Last Admin: 05/30/17 11:15 Dose: Not Given Home Med (Cyclosporine [Restasis]) 1 drop BOTHEYES BID [facility] Last Admin: 05/30/17 11:14 Dose: 1 drop Home Med (Dorzolamide 2%/Timolol 0.5% [Cosopt 2%-0.5% Opht]) 1 drop EACHEYE BID [facility] Last Admin: 05/29/17 08:31 Dose: 1 drop Home Med (Tafluprost/Pf [Zioptan 0.0015% Eye Drops]) 1 drop EACHEYE HS [facility] Last Admin: 05/29/17 21:07 Dose: 1 drop Hydrocortisone (Anusol-Hc) 1 applic DC BID [facility] Last Admin: 05/30/17 11:13 Dose: Not Given Insulin Detemir (Levemir) 6 units SC DAILY [facility] Last Admin: 05/30/17 11:17 Dose: Not Given Insulin Human Regular (Humulin R) 0 units SC ACHS [facility] PRN Reason: Protocol Last Admin: 05/30/17 11:15 Dose: Not Given Levalbuterol HCl (Xopenex) 0.63 mg INH RQ8 [facility] Last Admin: 05/30/17 07:15 Dose: 0.63 mg Levalbuterol HCl (Xopenex) 0.63 mg INH RQ8 PRN PRN Reason: Shortness of Breath Last Admin: 05/25/17 02:39 Dose: 0.63 mg Multivitamins/Minerals (Therapeutic-M Tab) 1 tab PO DAILY [facility] Last Admin: 05/29/17 08:34 Dose: 1 tab Pantoprazole Sodium (Protonix Ec Tab) 40 mg PO DAILY [facility] Last Admin: 05/29/17 08:33 Dose: 40 mg Saccharomyces Boulardii (Florastor) 250 mg PO BID [facility] Last Admin: 05/30/17 11:15 Dose: Not Given Sitagliptin Phosphate (Januvia) 50 mg PO DAILY [facility] Last Admin: 05/29/17 08:32 Dose: 50 mg Spironolactone (Aldactone) 50 mg PO DAILY [facility] Last Admin: 05/29/17 08:30 Dose: 50 mg - Labs Labs: 05/29/17 04:45 05/29/17 04:45 PT 16.0 Seconds (9.8-13.1) H 05/28/17 04:55 INR 1.5 (0.9-1.2) H 05/28/17 04:55 APTT 34.3 Seconds (25.6-37.1) 05/28/17 04:55
--- NOTE | 2017-05-30 13:01 | VASCULAR ---
PROCEDURE: Date of procedure: 05/30/2017 Procedure: 1. Placement of a right arm PICC with ultrasound and fluoroscopic guidance, CPT 99448 2. PICC tip confirmation with spot radiograph and is in the superior vena cava Medications: 3cc 1 percent lidocaine Total Fluoro time: 6.4 seconds Radiation: 0.61 MGy EBL: 2 cc HISTORY: Poor venous access TECHNIQUE: Following informed consent and procedure time-out, the patient was placed supine on the interventional table and the right arm prepped and draped in the usual sterile fashion. Ultrasound showed a patent and compressible right basilic vein. After the skin was anesthetized with lidocaine, the basilic vein was accessed with micro micropuncture technique using ultrasound guidance. A guidewire was then advanced under fluoroscopic guidance into the superior vena cava. An image documenting ultrasound guidance for vascular access was permanently saved. The length of the double-lumen 5 Chinese PICC was trimmed to 34 centimeters and advanced through a peel-away sheath. The PICC was position with tip of PICC confirm a spot radiograph the superior vena cava. The PICC was secured to the patient's skin. The PICC was flushed. A biopatch and sterile dressing was applied. IMPRESSION: Placement of a double-lumen 5 Chinese PICC trimmed to 34 centimeters via right basilic vein. The tip of the PICC is confirmed with spot radiograph and is in the superior vena cava.
--- NOTE | 2017-05-30 13:02 | US ---
PROCEDURE: Date of procedure: 05/30/2017 Procedure: 1. Ultrasound-guided Right thoracentesis, CPT 55520 Medications: 6cc 1% Lidocaine HISTORY: Right pleural effusion, shortness of breath TECHNIQUE: Following informed consent ,the Patients' right chest was marked. Procedure time-out was called, and the patient was placed in the sitting position and limited ultrasound showed a large right effusion. The patient's right back was prepped and draped in the usual sterile fashion. After the skin was anesthetized with lidocaine, a drainage catheter was advanced under ultrasound guidance into the pleural space. Ultrasound-guided thoracentesis was performed. A total of 700 cubic centimeters of shailesh-colored fluid removed without complication. A Xeroform dressing was applied. IMPRESSION: Ultrasound guided Right thoracentesis. There were no immediate complications.
[2017-05-30 13:08] LABS: BF GROSS APPEARANCE BLOODY (CLEAR)
[2017-05-30 13:10] LABS: BODY FLUID TOTAL COUNT 100 (0-0)
--- NOTE | 2017-05-30 15:33 | RAD ---
PROCEDURE: CHEST RADIOGRAPH, 1 VIEW HISTORY: Status post right thoracentesis. COMPARISON: Comparison made with chest radiograph 05/28/2027. Note that the lung apices are partially obscured by overlying facial soft tissue and mandible are FINDINGS: LUNGS: Mild central pulmonary vascular congestive changes slightly improved. Vague patchy opacity in the right lower lobe may represent alveolar-type infiltrate and/or atelectasis. Decreased right-sided effusion. PLEURA: No pneumothorax or pleural fluid seen. CARDIOVASCULAR: Heart remains enlarged. No change left-sided multi lead pacemaker/ defibrillator or right-sided disconnected cardiac leads. OSSEOUS STRUCTURES: No significant abnormalities. VISUALIZED UPPER ABDOMEN: Normal. OTHER FINDINGS: None. IMPRESSION: Slightly improved vascular congestion and diminished right-sided effusion. Right lower lobe infiltrate and/or atelectasis.
[2017-05-30] MEDS: Multivitamin With Minerals Tab PO SCH (16:55)
[2017-05-30] MEDS: Pantoprazole 40 mg EC Tab PO SCH (16:55)
[2017-05-30] MEDS: TAFLUPROST EACHEYE SCH (22:35)
[2017-05-31] MEDS: Levalbuterol 0.63 MG/3 ML Inhal Soln UD INH SCH ×3 (00:27→15:11)
--- NOTE | 2017-05-31 02:56 | PN ---
DATE: ENDO-FOLLOWUP NOTE LOCATION: ICU room 421. SUBJECTIVE: This is an 87-year-old female presenting here with congestive heart failure with underlying advanced COPD, currently being followed closely for hemodynamic monitoring and is also being followed closely for metabolic management because of recent hyperglycemic accelerations as noted thereof. Her latest glucose values today have ranged from 214-232 and 285 mg/dL. Her latest chemistry showed a BUN of 27, sodium 142, potassium 3.6, chloride 96, CO2 of 34, glucose 132 and creatinine 1.0. So at this time, we will actually continue the same low-dose basal insulin given as Levemir at 6 units subcu daily as ordered. We will continue the dual oral hypoglycemic drug therapy with glipizide given as 10 mg b.i.d. and Januvia at 50 mg once daily as ordered. We will also continue the low-dose correction scale using regular insulin as given. We will obtain serial chemistries and supplement accordingly as needed. We will follow. Lauryn Chandra MD
[2017-05-31 05:36] LABS: MEAN CELL VOLUME 101.7 fl (81.0-99.0); MEAN CORPUSCULAR HEMOGLOBIN 31.4 pg (27.0-31.0); MEAN CORPUSCULAR HGB CONC 30.9 g/dL (33.0-37.0); RED CELL DISTRIBUTION WIDTH 17.8 % (11.5-14.5); WHITE BLOOD COUNT 7.3 K/uL (4.8-10.8)
[2017-05-31 05:48] LABS: ALKALINE PHOSPHATASE 89 U/L (38-126); ALT/SGPT 26 U/L (9-52); AST/SGOT 22 U/L (14-36); BILIRUBIN,TOTAL 0.8 mg/dl (0.2-1.3); BLOOD UREA NITROGEN 27 mg/dl (7-17); CALCIUM 9.3 mg/dL (8.4-10.2); CARBON DIOXIDE 35 mmol/L (22-30); CHLORIDE 100 mmol/L (98-107); GFR AFRICAN-AMERICAN > 60; GLUCOSE,RANDOM 170 mg/dL (65-105); SODIUM 145 mmol/l (132-148); TOTAL PROTEIN 6.9 G/DL (6.3-8.2)
[2017-05-31 05:52] LABS: POTASSIUM 3.3 MMOL/L (3.6-5.0)
[2017-05-31] MEDS: Insulin Regular 100 units/ml SC SCH ×4 (06:37→22:27)
--- NOTE | 2017-05-31 07:19 | CP.CCUPN ---
CCU Subjective - Physician Review Events Since Last Encounter (Free Text): 05/31/17 18:40 The patient was Seen/interviewed and examined by me at the bedside during ICU round, Medical records reviewed and Management issues were discussed and formulated with the house staff. Remains lethargic but arousable and verbally responsive Comfortable, No distress noted Becoming anxious at times, received Morphine 1mg IV Afebrile. Remains on HFNC at 35% 40L/M, saturating low 90s% CCU Objective - Vital Signs / Intake & Output Vital Signs (Last 4 hours): Vital Signs Temp Pulse Resp BP Pulse Ox 05/31/17 06:00 76 27 H 141/62 92 L 05/31/17 04:51 22 05/31/17 04:00 98.2 F 15 L 23 132/60 96 Intake and Output (Last 8hrs): Intake & Output 05/30/17 05/31/17 05/31/17 22:59 06:59 14:59 Intake Total 30 170 Output Total 400 300 Balance -370 -130 Intake: IV 30 50 Oral 120 Output: Urine 400 300 Urethral (Mackey) 400 300 Other: # Bowel Movements 1 1 - Physical Exam Head: Positive for: Normocephalic Pupils: Positive for: PERRL Extroacular Muscles: Positive for: EOMI Conjunctiva: Positive for: Normal. Negative for: Icteric Mouth: Positive for: Moist Mucous Membranes Pharnyx: Positive for: Normal Neck: Positive for: Normal Range of Motion, JVD. Negative for: Bruit Respiratory/Chest: Positive for: Respiratory Distress (mild dyspnea), Rhonchi ( bilateral). Negative for: Accessory Muscle Use, Wheezes Cardiovascular: Positive for: Regular Rate and Rhythm (Paced), Murmurs ( systolic murmur), Irregular Rhythm, Peripheal Pulses Present. Negative for: Rub Abdomen: Positive for: Normal Bowel Sounds. Negative for: Tenderness, Distention Upper Extremity: Positive for: Edema (mostly LUE) Lower Extremity: Positive for: Edema. Negative for: CALF TENDERNESS, Cyanosis Neurological: Positive for: Speech Normal, Motor Func Grossly Intact, Normal Sensory Function Skin: Positive for: Warm, Pale. Negative for: Rashes Psychiatric: Positive for: Oriented x 3 - Medications Active Medications: Active Medications Generic Name Dose Route Start Last Admin Trade Name Freq PRN Reason Stop Dose Admin Acetaminophen 325 mg 05/24/17 12:33 05/30/17 22:08 Tylenol 325mg Tab PO 325 mg Q6H PRN Administration Headache Acetazolamide 500 mg 05/28/17 09:56 05/30/17 16:54 Diamox 250 Mg Tab PO Not Given BIDWM [facility] Allopurinol 100 mg 05/25/17 09:00 05/30/17 16:55 Zyloprim PO Not Given DAILY [facility] Apixaban 2.5 mg 05/27/17 17:45 05/29/17 08:31 Eliquis PO 2.5 mg BID [facility] Administration Protocol Benzonatate 200 mg 05/24/17 12:33 05/25/17 16:26 Tessalon Perles PO 200 mg TID PRN Administration Cough Carvedilol 3.125 mg 05/23/17 21:00 05/30/17 21:41 Coreg PO 3.125 mg Q12 [facility] Administration Ferrous Sulfate 325 mg 05/24/17 17:00 05/30/17 16:54 Feosol PO Not Given BID [facility] Furosemide 60 mg 05/23/17 21:00 05/30/17 21:46 Lasix IV 60 mg Q12 [facility] Administration Glipizide 10 mg 05/25/17 16:30 05/30/17 16:55 Glucotrol PO Not Given BIDAC [facility] Home Med 1 drop 05/24/17 17:00 05/30/17 16:54 Cyclosporine [Restasis] BOTHEYES Not Given BID [facility] Home Med 1 drop 05/24/17 17:00 05/29/17 08:31 Dorzolamide 2%/Timolol 0.5% [Cosopt 2%-0.5% Opht] EACHEYE 1 drop BID [facility] Administration Home Med 1 drop 05/24/17 22:00 05/30/17 22:35 Tafluprost/Pf [Zioptan 0.0015% Eye Drops] EACHEYE 1 drop HS [facility] Administration Hydrocortisone 1 applic 05/24/17 17:00 05/30/17 16:54 Anusol-Hc MD Not Given BID [facility] Insulin Detemir 6 units 05/27/17 09:00 05/30/17 11:17 Levemir SC Not Given DAILY [facility] Insulin Human Regular 0 units 05/25/17 16:30 05/31/17 06:37 Humulin R SC Not Given ACHS [facility] Protocol Levalbuterol HCl 0.63 mg 05/23/17 21:00 05/31/17 00:27 Xopenex INH 0.63 mg RQ8 [facility] Administration Levalbuterol HCl 0.63 mg 05/24/17 12:40 05/30/17 12:21 Xopenex INH 0.63 mg RQ8 PRN Administration Shortness of Breath Multivitamins/Minerals 1 tab 05/25/17 09:00 05/30/17 16:55 Therapeutic-M Tab PO Not Given DAILY [facility] Pantoprazole Sodium 40 mg 05/29/17 09:00 05/30/17 16:55 Protonix Ec Tab PO Not Given DAILY [facility] Saccharomyces Boulardii 250 mg 05/24/17 17:00 05/30/17 16:55 Florastor PO Not Given BID [facility] Sitagliptin Phosphate 50 mg 05/25/17 09:00 05/30/17 16:55 Januvia PO Not Given DAILY [facility] Spironolactone 50 mg 05/28/17 10:00 05/30/17 16:54 Aldactone PO Not Given DAILY [facility] - Patient Studies Lab Studies: Microbiology Studies 05/30/17 10:22 Gram Stain - Final Pleural Fluid Lab Studies 05/31/17 05/31/17 05/31/17 Range/Units 05:00 05:00 04:46 WBC 7.3 (4.8-10.8) K/uL RBC 3.15 L (3.80-5.20) Mil/uL Hgb 9.9 L (12.0-16.0) g/dL Hct 32.0 L (34.0-47.0) % MCV 101.7 H D (81.0-99.0) fl MCH 31.4 H (27.0-31.0) pg MCHC 30.9 L (33.0-37.0) g/dL RDW 17.8 H (11.5-14.5) % Plt Count 140 (130-400) K/uL Sodium 145 (132-148) mmol/l Potassium 3.3 L (3.6-5.0) MMOL/L Chloride 100 (98-107) mmol/L Carbon Dioxide 35 H (22-30) mmol/L Anion Gap 13 (10-20) BUN 27 H (7-17) mg/dl Creatinine 1.0 (0.7-1.2) mg/dL Est GFR ( Amer) > 60 Est GFR (Non-Af Amer) 52 POC Glucose (mg/dL) 199 H (65-110) mg/dL Random Glucose 170 H (65-105) mg/dL Calcium 9.3 (8.4-10.2) mg/dL Total Bilirubin 0.8 (0.2-1.3) mg/dl AST 22 (14-36) U/L ALT 26 (9-52) U/L Alkaline Phosphatase 89 (38-126) U/L Total Protein 6.9 (6.3-8.2) G/DL Albumin 3.5 (3.5-5.0) g/dL Globulin 3.4 (2.2-3.9) gm/dL Albumin/Globulin Ratio 1.0 (1.0-2.1) Fluid Source Fluid Appearance (CLEAR) Fluid pH Fluid WBC (0.0-300.0) /mm3 Fluid RBC (0.0-0.0) /mm3 Fluid Tot Cell Count (0-0) Fluid Neutrophils (0-0) % Fluid Lymphocytes (0-0) % Fld Monocyte/Macrophag (0-0) % Fluid Glucose (NONE ESTABLISHED) mg/dL Fluid Total Protein (NONE ESTABLISHED) g/dL Fluid LDH (NONE ESTABLISHED) IU Fluid Amylase (NONE ESTABLISHED) mg/dL Fluid Comment 05/30/17 05/30/17 05/30/17 Range/Units 21:50 16:29 11:28 WBC (4.8-10.8) K/uL RBC (3.80-5.20) Mil/uL Hgb (12.0-16.0) g/dL Hct (34.0-47.0) % MCV (81.0-99.0) fl MCH (27.0-31.0) pg MCHC (33.0-37.0) g/dL RDW (11.5-14.5) % Plt Count (130-400) K/uL Sodium (132-148) mmol/l Potassium (3.6-5.0) MMOL/L Chloride (98-107) mmol/L Carbon Dioxide (22-30) mmol/L Anion Gap (10-20) BUN (7-17) mg/dl Creatinine (0.7-1.2) mg/dL Est GFR ( Amer) Est GFR (Non-Af Amer) POC Glucose (mg/dL) 214 H 285 H 232 H (65-110) mg/dL Random Glucose (65-105) mg/dL Calcium (8.4-10.2) mg/dL Total Bilirubin (0.2-1.3) mg/dl AST (14-36) U/L ALT (9-52) U/L Alkaline Phosphatase (38-126) U/L Total Protein (6.3-8.2) G/DL Albumin (3.5-5.0) g/dL Globulin (2.2-3.9) gm/dL Albumin/Globulin Ratio (1.0-2.1) Fluid Source Fluid Appearance (CLEAR) Fluid pH Fluid WBC (0.0-300.0) /mm3 Fluid RBC (0.0-0.0) /mm3 Fluid Tot Cell Count (0-0) Fluid Neutrophils (0-0) % Fluid Lymphocytes (0-0) % Fld Monocyte/Macrophag (0-0) % Fluid Glucose (NONE ESTABLISHED) mg/dL Fluid Total Protein (NONE ESTABLISHED) g/dL Fluid LDH (NONE ESTABLISHED) IU Fluid Amylase (NONE ESTABLISHED) mg/dL Fluid Comment 05/30/17 05/30/17 05/30/17 Range/Units 10:59 10:22 10:22 WBC (4.8-10.8) K/uL RBC (3.80-5.20) Mil/uL Hgb (12.0-16.0) g/dL Hct (34.0-47.0) % MCV (81.0-99.0) fl MCH (27.0-31.0) pg MCHC (33.0-37.0) g/dL RDW (11.5-14.5) % Plt Count (130-400) K/uL Sodium (132-148) mmol/l Potassium (3.6-5.0) MMOL/L Chloride (98-107) mmol/L Carbon Dioxide (22-30) mmol/L Anion Gap (10-20) BUN (7-17) mg/dl Creatinine (0.7-1.2) mg/dL Est GFR ( Amer) Est GFR (Non-Af Amer) POC Glucose (mg/dL) 67 (65-110) mg/dL Random Glucose (65-105) mg/dL Calcium (8.4-10.2) mg/dL Total Bilirubin (0.2-1.3) mg/dl AST (14-36) U/L ALT (9-52) U/L Alkaline Phosphatase (38-126) U/L Total Protein (6.3-8.2) G/DL Albumin (3.5-5.0) g/dL Globulin (2.2-3.9) gm/dL Albumin/Globulin Ratio (1.0-2.1) Fluid Source Pleural Fluid Appearance Bloody (CLEAR) Fluid pH 8.5 Fluid WBC 180.0 (0.0-300.0) /mm3 Fluid RBC 97917.0 H (0.0-0.0) /mm3 Fluid Tot Cell Count 100 H (0-0) Fluid Neutrophils 27.0 H (0-0) % Fluid Lymphocytes 42.0 H (0-0) % Fld Monocyte/Macrophag 31 H (0-0) % Fluid Glucose 71 (NONE ESTABLISHED) mg/dL Fluid Total Protein 2.4 (NONE ESTABLISHED) g/dL Fluid LDH 251 (NONE ESTABLISHED) IU Fluid Amylase < 30 (NONE ESTABLISHED) mg/dL Fluid Comment Cloudy Laboratory Results - last 24 hr 05/30/17 05/30/17 05/30/17 10:22 10:22 10:59 WBC RBC Hgb Hct MCV MCH MCHC RDW Plt Count Sodium Potassium Chloride Carbon Dioxide Anion Gap BUN Creatinine Est GFR ( Amer) Est GFR (Non-Af Amer) POC Glucose (mg/dL) 67 Random Glucose Calcium Total Bilirubin AST ALT Alkaline Phosphatase Total Protein Albumin Globulin Albumin/Globulin Ratio Fluid Source Pleural Fluid Appearance Bloody Fluid pH 8.5 Fluid WBC 180.0 Fluid RBC [address].0 H Fluid Tot Cell Count 100 H Fluid Neutrophils 27.0 H Fluid Lymphocytes 42.0 H Fld Monocyte/Macrophag 31 H Fluid Glucose 71 Fluid Total Protein 2.4 Fluid LDH 251 Fluid Amylase < 30 Fluid Comment Cloudy 05/30/17 05/30/17 05/30/17 11:28 16:29 21:50 WBC RBC Hgb Hct MCV MCH MCHC RDW Plt Count Sodium Potassium Chloride Carbon Dioxide Anion Gap BUN Creatinine Est GFR ( Amer) Est GFR (Non-Af Amer) POC Glucose (mg/dL) 232 H 285 H 214 H Random Glucose Calcium Total Bilirubin AST ALT Alkaline Phosphatase Total Protein Albumin Globulin Albumin/Globulin Ratio Fluid Source Fluid Appearance Fluid pH Fluid WBC Fluid RBC Fluid Tot Cell Count Fluid Neutrophils Fluid Lymphocytes Fld Monocyte/Macrophag Fluid Glucose Fluid Total Protein Fluid LDH Fluid Amylase Fluid Comment 05/31/17 05/31/17 05/31/17 04:46 05:00 05:00 WBC 7.3 RBC 3.15 L Hgb 9.9 L Hct 32.0 L MCV 101.7 H D MCH 31.4 H MCHC 30.9 L RDW 17.8 H Plt Count 140 Sodium 145 Potassium 3.3 L Chloride 100 Carbon Dioxide 35 H Anion Gap 13 BUN 27 H Creatinine 1.0 Est GFR ( Amer) > 60 Est GFR (Non-Af Amer) 52 POC Glucose (mg/dL) 199 H Random Glucose 170 H Calcium 9.3 Total Bilirubin 0.8 AST 22 ALT 26 Alkaline Phosphatase 89 Total Protein 6.9 Albumin 3.5 Globulin 3.4 Albumin/Globulin Ratio 1.0 Fluid Source Fluid Appearance Fluid pH Fluid WBC Fluid RBC Fluid Tot Cell Count Fluid Neutrophils Fluid Lymphocytes Fld Monocyte/Macrophag Fluid Glucose Fluid Total Protein Fluid LDH Fluid Amylase Fluid Comment Fingerstick Blood Sugar Results: 199 Critical Care Progress Note - Nutrition Nutrition: Nutrition Category Date Time Status Dysphagia/Modified Consistency Diet [DIET] Diets 05/23/17 Dinner Active Assessment/Plan (1) Acute respiratory failure with hypercapnia Current Visit: Yes Status: Acute Comment: Maxipeme 1 gm IVPB Q Daily S/p Pleural fluid drainage (2) Cardiomyopathy Current Visit: No Status: Chronic Priority: High Comment: Dilated CMY with Systolic dysfunction with EF ~ 15%; AICD in place; valvular dysfunction with moderate to severe pulm HTN Cont PO Lasix and Spironolactone Cont Coreg (3) CHF (congestive heart failure) Current Visit: Yes Status: Chronic Priority: High (4) Coagulopathy Current Visit: No Status: Acute Comment: No evidance of bleeding (5) Pleural effusion Current Visit: No Status: Acute Priority: High Comment: Moderate right pleural effusion. S/p Thoracocentesis on 05/30 700 cc of travis colored fluid drained (6) Sepsis Current Visit: No Status: Acute Priority: High Comment: Maxipeme 1 gm IVPB Q Daily Cultures NTD (7) Atrial fibrillation with controlled ventricular response Current Visit: No Status: Chronic Priority: Medium Comment: Rate controlled Eliquis Re-started Continue Coreg (8) COPD (chronic obstructive pulmonary disease) Current Visit: No Status: Chronic Priority: High Comment: COPD stable - Xopenex via nebulizer q 8hrs PRN - Cont O2 therapy
[2017-05-31] MEDS ORDERED: Potassium Chloride 20 mEq ER Tab PO ONE (08:57)
--- NOTE | 2017-05-31 09:13 | CP.PCM.PN ---
Subjective - Date & Time of Evaluation Date of Evaluation: 05/31/17 Time of Evaluation: 09:07 - Subjective Subjective: Somnolent, difficult to awaken. HFNC incresed to 40LPM, O2 remains 35%. Vital signs have been stable, glucose remains elevated. Congested cough w/o ability to expectorate. Coarse rhonchi are heard bilaterally w/o audible wheezing. SpO2 remains 94-98%, paced rhythm. Dependant edema has almost completely resolved. Pleural fluid again is transudative in nature. After about 10-15 minutes of increased flow she began to show signs of more awakening. Medication list checked, some meds were deemed unnecessary and were discontinued. Eliquis has been re-started. Discussed the above with cardiology. Her son was present throughout the exam. Objective - Vital Signs/Intake and Output Vital Signs (last 24 hours): Temp Pulse Resp BP Pulse Ox 97.9 F 85 16 98/42 L 98 05/31/17 08:00 05/31/17 08:00 05/31/17 08:02 05/31/17 08:00 05/31/17 08:00 Intake and Output: 05/30/17 05/31/17 23:59 11:59 Intake Total 280 170 Output Total 700 300 Balance -420 -130 - Medications Medications: Current Medications Acetaminophen (Tylenol 325mg Tab) 325 mg PO Q6H PRN PRN Reason: Headache Last Admin: 05/30/17 22:08 Dose: 325 mg Acetazolamide (Diamox 250 Mg Tab) 500 mg PO BIDWM [facility] Last Admin: 05/30/17 16:54 Dose: Not Given Allopurinol (Zyloprim) 100 mg PO DAILY [facility] Last Admin: 05/30/17 16:55 Dose: Not Given Apixaban (Eliquis) 2.5 mg PO BID [facility] PRN Reason: Protocol Last Admin: 05/29/17 08:31 Dose: 2.5 mg Benzonatate (Tessalon Perles) 200 mg PO TID PRN PRN Reason: Cough Last Admin: 05/25/17 16:26 Dose: 200 mg Carvedilol (Coreg) 3.125 mg PO Q12 [facility] Last Admin: 05/30/17 21:41 Dose: 3.125 mg Ferrous Sulfate (Feosol) 325 mg PO BID [facility] Last Admin: 05/30/17 16:54 Dose: Not Given Furosemide (Lasix) 60 mg IV Q12 [facility] Last Admin: 05/30/17 21:46 Dose: 60 mg Glipizide (Glucotrol) 10 mg PO BIDAC [facility] Last Admin: 05/30/17 16:55 Dose: Not Given Home Med (Cyclosporine [Restasis]) 1 drop BOTHEYES BID [facility] Last Admin: 05/30/17 16:54 Dose: Not Given Home Med (Dorzolamide 2%/Timolol 0.5% [Cosopt 2%-0.5% Opht]) 1 drop EACHEYE BID [facility] Last Admin: 05/29/17 08:31 Dose: 1 drop Home Med (Tafluprost/Pf [Zioptan 0.0015% Eye Drops]) 1 drop EACHEYE HS [facility] Last Admin: 05/30/17 22:35 Dose: 1 drop Hydrocortisone (Anusol-Hc) 1 applic MD BID [facility] Last Admin: 05/30/17 16:54 Dose: Not Given Insulin Detemir (Levemir) 6 units SC DAILY [facility] Last Admin: 05/30/17 11:17 Dose: Not Given Insulin Human Regular (Humulin R) 0 units SC ACHS [facility] PRN Reason: Protocol Last Admin: 05/31/17 06:37 Dose: Not Given Levalbuterol HCl (Xopenex) 0.63 mg INH RQ8 [facility] Last Admin: 05/31/17 08:02 Dose: 0.63 mg Levalbuterol HCl (Xopenex) 0.63 mg INH RQ8 PRN PRN Reason: Shortness of Breath Last Admin: 05/30/17 12:21 Dose: 0.63 mg Pantoprazole Sodium (Protonix Ec Tab) 40 mg PO DAILY [facility] Last Admin: 05/30/17 16:55 Dose: Not Given Sitagliptin Phosphate (Januvia) 50 mg PO DAILY [facility] Last Admin: 05/30/17 16:55 Dose: Not Given Spironolactone (Aldactone) 50 mg PO DAILY [facility] Last Admin: 05/30/17 16:54 Dose: Not Given - Labs Labs: 05/31/17 05:00 05/31/17 05:00 PT 16.0 Seconds (9.8-13.1) H 05/28/17 04:55 INR 1.5 (0.9-1.2) H 05/28/17 04:55 APTT 34.3 Seconds (25.6-37.1) 05/28/17 04:55 Assessment and Plan (1) Chronic respiratory failure with hypoxia and hypercapnia Status: Chronic (2) CHF (congestive heart failure) Status: Chronic (3) COPD (chronic obstructive pulmonary disease) Status: Chronic (4) Pulmonary hypertension Status: Chronic
[2017-05-31] MEDS: Hydrocortisone 2.5% (Rectal) CREAM PR SCH ×2 (09:24→16:52)
[2017-05-31] MEDS: Patient's Own Med (Cyclosporine [Restasis] 1 DROP) BOTHEYES SCH ×2 (09:25→16:52)
[2017-05-31] MEDS: Insulin Detemir 100 Units/ml Inj SC SCH (09:28)
[2017-05-31] MEDS: Pantoprazole 40 mg EC Tab PO SCH (09:28)
--- NOTE | 2017-05-31 09:37 | CP.PCM.PN ---
Subjective - Date & Time of Evaluation Date of Evaluation: 05/31/17 Time of Evaluation: 09:00 - Subjective Subjective: Very drowsy this AM Barely responds to loud calling/shaking Finally opened her eyes briefly and went back to sleep HiFlow O2 was increased by Dr. Mcmahan with mild improvement in her responsiveness Afebrile In VVI paced rhythm with BP 110/70 mm Hg Has made 70 ml of urine in 3 hrs JVP flat, no pedal or sacral oedema Abd soft, nontender Labs stable (K+ 3.3 mEq/L ), Kreplacement given Pleural fluid is transudate Clinically remains unchanged Discussed with Pt's son Objective - Vital Signs/Intake and Output Vital Signs (last 24 hours): Temp Pulse Resp BP Pulse Ox 97.9 F 78 16 120/61 98 05/31/17 08:00 05/31/17 09:25 05/31/17 08:02 05/31/17 09:27 05/31/17 08:00 Intake and Output: 05/31/17 05/31/17 06:59 18:59 Intake Total 200 Output Total 400 Balance -200 - Medications Medications: Current Medications Acetaminophen (Tylenol 325mg Tab) 325 mg PO Q6H PRN PRN Reason: Headache Last Admin: 05/30/17 22:08 Dose: 325 mg Acetazolamide (Diamox 250 Mg Tab) 500 mg PO BIDWM [facility] Last Admin: 05/31/17 09:25 Dose: 500 mg Allopurinol (Zyloprim) 100 mg PO DAILY [facility] Last Admin: 05/31/17 09:28 Dose: 100 mg Apixaban (Eliquis) 2.5 mg PO BID [facility] PRN Reason: Protocol Last Admin: 05/29/17 08:31 Dose: 2.5 mg Benzonatate (Tessalon Perles) 200 mg PO TID PRN PRN Reason: Cough Last Admin: 05/25/17 16:26 Dose: 200 mg Carvedilol (Coreg) 3.125 mg PO Q12 [facility] Last Admin: 05/31/17 09:25 Dose: 3.125 mg Ferrous Sulfate (Feosol) 325 mg PO BID [facility] Last Admin: 05/31/17 09:26 Dose: 325 mg Furosemide (Lasix) 60 mg IV Q12 [facility] Last Admin: 05/31/17 09:27 Dose: 60 mg Glipizide (Glucotrol) 10 mg PO BIDAC [facility] Last Admin: 05/31/17 09:26 Dose: 10 mg Home Med (Cyclosporine [Restasis]) 1 drop BOTHEYES BID [facility] Last Admin: 05/31/17 09:25 Dose: 1 drop Home Med (Dorzolamide 2%/Timolol 0.5% [Cosopt 2%-0.5% Opht]) 1 drop EACHEYE BID [facility] Last Admin: 05/29/17 08:31 Dose: 1 drop Home Med (Tafluprost/Pf [Zioptan 0.0015% Eye Drops]) 1 drop EACHEYE HS [facility] Last Admin: 05/30/17 22:35 Dose: 1 drop Hydrocortisone (Anusol-Hc) 1 applic SC BID [facility] Last Admin: 05/31/17 09:24 Dose: 1 applic Insulin Detemir (Levemir) 6 units SC DAILY [facility] Last Admin: 05/31/17 09:28 Dose: 6 units Insulin Human Regular (Humulin R) 0 units SC [facility] PRN Reason: Protocol Last Admin: 05/31/17 06:37 Dose: Not Given Levalbuterol HCl (Xopenex) 0.63 mg INH RQ8 [facility] Last Admin: 05/31/17 08:02 Dose: 0.63 mg Levalbuterol HCl (Xopenex) 0.63 mg INH RQ8 PRN PRN Reason: Shortness of Breath Last Admin: 05/30/17 12:21 Dose: 0.63 mg Pantoprazole Sodium (Protonix Ec Tab) 40 mg PO DAILY [facility] Last Admin: 05/31/17 09:28 Dose: 40 mg Sitagliptin Phosphate (Januvia) 50 mg PO DAILY [facility] Last Admin: 05/31/17 09:26 Dose: 50 mg Spironolactone (Aldactone) 50 mg PO DAILY [facility] Last Admin: 05/31/17 09:24 Dose: 50 mg - Labs Labs: 05/31/17 05:00 05/31/17 05:00 PT 16.0 Seconds (9.8-13.1) H 05/28/17 04:55 INR 1.5 (0.9-1.2) H 05/28/17 04:55 APTT 34.3 Seconds (25.6-37.1) 05/28/17 04:55
--- NOTE | 2017-05-31 13:08 | RAD ---
HISTORY: pleural effusion COMPARISON: No prior. FINDINGS: LUNGS: Bilateral interstitial infiltrates with suggestion of a small right pleural effusion. PLEURA: As above. CARDIOVASCULAR: Cardiomegaly with pacemaker leads in place. Status post CABG. OSSEOUS STRUCTURES: No significant abnormalities. VISUALIZED UPPER ABDOMEN: Normal. OTHER FINDINGS: None. IMPRESSION: Bilateral interstitial infiltrates with suggestion of a small right pleural effusion.
[2017-05-31] MEDS: Levalbuterol 0.63 MG/3 ML Inhal Soln UD INH PRN (14:02)
--- NOTE | 2017-05-31 15:19 | CP.PCM.PN ---
Subjective - Date & Time of Evaluation Date of Evaluation: 05/31/17 Time of Evaluation: 15:11 - Subjective Subjective: I D NOTE PATIENT EXAMINED ,CHART REVIEWED DISCUSSED c FAMILY(3 SIBLINGS) ,DON & MARINO PATIENT UNCOMFORTABLE,BEING SOMEWHAT COMBATIVE CHEST X-RAY EVALUATED O2 FLOW INCREASED EARLIER TODAY LUNGS: RHONCHI BILATERALLY DECREASED BREATH SOUNDS ARE SIGNIFICANT HAVE ORDERED MS IMG IV STAT MAXIPEME I GM IVPB Q24H Objective - Vital Signs/Intake and Output Vital Signs (last 24 hours): Temp Pulse Resp BP Pulse Ox 97.7 F 84 28 H 137/73 94 L 05/31/17 12:00 05/31/17 14:00 05/31/17 14:00 05/31/17 14:00 05/31/17 14:00 Intake and Output: 05/31/17 05/31/17 06:59 18:59 Intake Total 200 450 Output Total 400 260 Balance -200 190 - Medications Medications: Current Medications Acetaminophen (Tylenol 325mg Tab) 325 mg PO Q6H PRN PRN Reason: Headache Last Admin: 05/31/17 13:01 Dose: 325 mg Acetazolamide (Diamox 250 Mg Tab) 500 mg PO BIDWM [facility] Last Admin: 05/31/17 09:25 Dose: 500 mg Allopurinol (Zyloprim) 100 mg PO DAILY [facility] Last Admin: 05/31/17 09:28 Dose: 100 mg Apixaban (Eliquis) 2.5 mg PO BID [facility] PRN Reason: Protocol Last Admin: 05/31/17 10:51 Dose: 2.5 mg Benzonatate (Tessalon Perles) 200 mg PO TID PRN PRN Reason: Cough Last Admin: 05/31/17 13:49 Dose: 200 mg Carvedilol (Coreg) 3.125 mg PO Q12 [facility] Last Admin: 05/31/17 09:25 Dose: 3.125 mg Ferrous Sulfate (Feosol) 325 mg PO BID [facility] Last Admin: 05/31/17 09:26 Dose: 325 mg Furosemide (Lasix) 60 mg IV Q12 [facility] Last Admin: 05/31/17 09:27 Dose: 60 mg Glipizide (Glucotrol) 10 mg PO BIDAC [facility] Last Admin: 05/31/17 09:26 Dose: 10 mg Home Med (Cyclosporine [Restasis]) 1 drop BOTHEYES BID [facility] Last Admin: 05/31/17 09:25 Dose: 1 drop Home Med (Dorzolamide 2%/Timolol 0.5% [Cosopt 2%-0.5% Opht]) 1 drop EACHEYE BID [facility] Last Admin: 05/29/17 08:31 Dose: 1 drop Home Med (Tafluprost/Pf [Zioptan 0.0015% Eye Drops]) 1 drop EACHEYE HS [facility] Last Admin: 05/30/17 22:35 Dose: 1 drop Hydrocortisone (Anusol-Hc) 1 applic [place] BID [facility] Last Admin: 05/31/17 09:24 Dose: 1 applic Cefepime HCl 1 gm/ Sodium (Chloride) 100 mls @ 100 mls/hr IVPB DAILY [facility] Insulin Detemir (Levemir) 6 units SC DAILY [facility] Last Admin: 05/31/17 09:28 Dose: 6 units Insulin Human Regular (Humulin R) 0 units SC ACHS [facility] PRN Reason: Protocol Last Admin: 05/31/17 11:08 Dose: 3 units Levalbuterol HCl (Xopenex) 0.63 mg INH RQ8 [facility] Last Admin: 05/31/17 08:02 Dose: 0.63 mg Levalbuterol HCl (Xopenex) 0.63 mg INH RQ8 PRN PRN Reason: Shortness of Breath Last Admin: 05/31/17 14:02 Dose: 0.63 mg Pantoprazole Sodium (Protonix Ec Tab) 40 mg PO DAILY [facility] Last Admin: 05/31/17 09:28 Dose: 40 mg Sitagliptin Phosphate (Januvia) 50 mg PO DAILY [facility] Last Admin: 05/31/17 09:26 Dose: 50 mg Spironolactone (Aldactone) 50 mg PO DAILY [facility] Last Admin: 05/31/17 09:24 Dose: 50 mg - Labs Labs: 05/31/17 05:00 05/31/17 05:00 PT 16.0 Seconds (9.8-13.1) H 05/28/17 04:55 INR 1.5 (0.9-1.2) H 05/28/17 04:55 APTT 34.3 Seconds (25.6-37.1) 05/28/17 04:55
--- NOTE | 2017-05-31 19:38 | PN ---
ENDOCRINOLOGY FOLLOWUP NOTE LOCATION: Room #421, ICU. SUBJECTIVE: This is an 87-year-old female presenting here with congestive heart failure and pulmonary edema with underlying pleural effusion and is now being followed closely for metabolic management. Her glycemic levels are fluctuating, but improved and the latest glucose levels have ranged from 199 to 261 mg/dL. The latest chemistry showed a BUN of 27, sodium 145, potassium 3.3, chloride of 100, CO2 of 35, glucose 170 and creatinine 1.0, so at this time, we will modify once again her basal insulin and increase the Levemir to 8 units subQ at 9:00 a.m. daily as ordered. We will also continue the low-dose correction scale using regular insulin as given. We will also continue the dual oral hypoglycemic drug therapy as given with glipizide given at 10 mg b.i.d. and Januvia given at 50 mg once daily as ordered. We will titrate incremental as indicated to optimize metabolic control. We will follow and advise accordingly. Lauryn Chandra MD
[2017-05-31] MEDS ORDERED: Cefepime 1 GM in Sodium Chloride 0.9% 100 ML IVPB SCH (21:00)
[2017-05-31] MEDS: TAFLUPROST EACHEYE SCH (21:00)
[2017-06-01] MEDS: Levalbuterol 0.63 MG/3 ML Inhal Soln UD INH SCH ×3 (00:57→15:46)
[2017-06-01 05:58] LABS: HEMATOCRIT 34.1 % (34.0-47.0); MEAN CORPUSCULAR HEMOGLOBIN 31.9 pg (27.0-31.0); MEAN CORPUSCULAR HGB CONC 30.9 g/dL (33.0-37.0); RED CELL DISTRIBUTION WIDTH 18.6 % (11.5-14.5); WHITE BLOOD COUNT 8.9 K/uL (4.8-10.8)
[2017-06-01 06:09] LABS: CALCIUM 9.8 mg/dL (8.4-10.2); POTASSIUM 3.7 MMOL/L (3.6-5.0)
[2017-06-01] MEDS: Insulin Regular 100 units/ml SC SCH ×4 (07:03→21:33)
[2017-06-01] MEDS: Patient's Own Med (Cyclosporine [Restasis] 1 DROP) BOTHEYES SCH ×2 (09:31→20:51)
[2017-06-01] MEDS: Pantoprazole 40 mg EC Tab PO SCH (09:31)
[2017-06-01] MEDS: Lactobacillus Acidophilus 500 MU Cap PO SCH ×2 (09:34→20:48)
[2017-06-01] MEDS: Insulin Detemir 100 Units/ml Inj SC SCH (09:34)
[2017-06-01] MEDS: Hydrocortisone 2.5% (Rectal) CREAM PR SCH ×2 (09:35→19:03)
--- NOTE | 2017-06-01 10:17 | CP.CCUPN ---
CCU Subjective - Physician Review Events Since Last Encounter (Free Text): 06/01/17 10:00 The patient was Seen/interviewed and examined by me at the bedside during ICU round, Medical records reviewed and Management issues were discussed and formulated with the house staff. Remains lethargic but easily arousable, responsive to verbal and tactile stimuli. Awake, oriented x 1 Comfortable, No distress noted Remains on HFNC at 35% 40L/M, saturating low mid 90s% Moist cough with weak cough reflex, on Nebs/mucomyst Mild headaches, 650 mg PO Tylenol ordered, but she fall asleep before the Tylenol given. No chest pain Intermittently anxious at times, received Morphine 1mg IV yesterday x 1 Afebrile, VSS, BP 120s/70s Last 24H I&O 910/740 Poor PO intake, about 25% of meal consumed, on Ensure Labs this morning reviewed, H/H stable, stable renal function 31/1.1 06/01/17 10:25 Underwent R thoracentesis (05/14) Underwent Double lumen PICC via right basilic vein, and Right thoracentesis ( 700 cc of travis colored fluid drained) (05/30). CCU Objective - Vital Signs / Intake & Output Vital Signs (Last 4 hours): Vital Signs Temp Pulse Resp BP Pulse Ox 06/01/17 09:32 129/71 06/01/17 08:00 96.4 F L 92 H 18 126/92 H 98 06/01/17 07:51 22 06/01/17 06:00 83 26 H 132/70 100 Intake and Output (Last 8hrs): Intake & Output 05/31/17 06/01/17 06/01/17 22:59 06:59 14:59 Intake Total 100 360 120 Output Total 80 400 Balance 20 -40 120 Intake: IV 0 0 Intake, Piggyback 100 Oral 360 120 Output: Urine 80 400 Urethral (Mackey) 80 400 Other: # Bowel Movements 1 - Physical Exam Physical Exam Limitations: Positive for: Altered Mental Status, Clinical Condition Head: Positive for: Atraumatic, Normocephalic. Negative for: Tenderness, Contusion Pupils: Positive for: PERRL Extroacular Muscles: Positive for: EOMI Conjunctiva: Positive for: Normal. Negative for: Icteric Mouth: Positive for: Moist Mucous Membranes Pharnyx: Positive for: Normal Neck: Positive for: Normal Range of Motion, JVD. Negative for: Bruit Respiratory/Chest: Positive for: Respiratory Distress (mild dyspnea), Rhonchi ( bilateral). Negative for: Accessory Muscle Use, Wheezes Cardiovascular: Positive for: Regular Rate and Rhythm (Paced), Murmurs ( systolic murmur), Irregular Rhythm, Peripheal Pulses Present. Negative for: Rub Abdomen: Positive for: Normal Bowel Sounds. Negative for: Tenderness, Distention Upper Extremity: Positive for: Edema (mostly LUE) Lower Extremity: Positive for: Edema. Negative for: CALF TENDERNESS, Cyanosis Neurological: Positive for: Speech Normal, Motor Func Grossly Intact, Normal Sensory Function Skin: Positive for: Warm, Pale. Negative for: Rashes Psychiatric: Positive for: Oriented x 3 - Medications Active Medications: Active Medications Generic Name Dose Route Start Last Admin Trade Name Freq PRN Reason Stop Dose Admin Acetaminophen 325 mg 05/24/17 12:33 05/31/17 13:01 Tylenol 325mg Tab PO 325 mg Q6H PRN Administration Headache Acetazolamide 500 mg 05/28/17 09:56 06/01/17 09:30 Diamox 250 Mg Tab PO 500 mg BIDWM [facility] Administration Allopurinol 100 mg 05/25/17 09:00 06/01/17 09:31 Zyloprim PO 100 mg DAILY [facility] Administration Apixaban 2.5 mg 05/27/17 17:45 06/01/17 09:30 Eliquis PO 2.5 mg BID [facility] Administration Protocol Benzonatate 200 mg 05/24/17 12:33 05/31/17 13:49 Tessalon Perles PO 200 mg TID PRN Administration Cough Carvedilol 3.125 mg 05/23/17 21:00 06/01/17 09:29 Coreg PO 3.125 mg Q12 [facility] Administration Ferrous Sulfate 325 mg 05/24/17 17:00 06/01/17 09:30 Feosol PO 325 mg BID [facility] Administration Furosemide 60 mg 05/23/17 21:00 06/01/17 09:32 Lasix IV 60 mg Q12 [facility] Administration Glipizide 10 mg 05/25/17 16:30 06/01/17 09:31 Glucotrol PO 10 mg BIDAC [facility] Administration Home Med 1 drop 05/24/17 17:00 06/01/17 09:31 Cyclosporine [Restasis] BOTHEYES 1 drop BID [facility] Administration Home Med 1 drop 05/24/17 17:00 05/29/17 08:31 Dorzolamide 2%/Timolol 0.5% [Cosopt 2%-0.5% Opht] EACHEYE 1 drop BID [facility] Administration Home Med 1 drop 05/24/17 22:00 05/31/17 21:00 Tafluprost/Pf [Zioptan 0.0015% Eye Drops] EACHEYE 1 drop HS [facility] Administration Hydrocortisone 1 applic 05/24/17 17:00 06/01/17 09:35 Anusol-Hc [place] 1 applic BID [facility] Administration Cefepime HCl 1 gm/ Dextrose 100 mls @ 100 mls/hr 06/01/17 21:00 IVPB DAILY@2100 [facility] Insulin Detemir 8 units 06/01/17 09:00 06/01/17 09:34 Levemir SC 8 units DAILY [facility] Administration Insulin Human Regular 0 units 05/25/17 16:30 06/01/17 07:03 Humulin R SC Not Given ACHS [facility] Protocol Lactobacillus Acidophilus 1 cap 06/01/17 09:00 06/01/17 09:34 Bacid Acidophilus PO 1 cap BID [facility] Administration Levalbuterol HCl 0.63 mg 05/23/17 21:00 06/01/17 07:31 Xopenex INH 0.63 mg RQ8 [facility] Administration Levalbuterol HCl 0.63 mg 05/24/17 12:40 05/31/17 14:02 Xopenex INH 0.63 mg RQ8 PRN Administration Shortness of Breath Pantoprazole Sodium 40 mg 05/29/17 09:00 06/01/17 09:31 Protonix Ec Tab PO 40 mg DAILY [facility] Administration Sitagliptin Phosphate 50 mg 05/25/17 09:00 06/01/17 09:31 Januvia PO 50 mg DAILY [facility] Administration Spironolactone 50 mg 05/28/17 10:00 06/01/17 09:28 Aldactone PO 50 mg DAILY [facility] Administration - Patient Studies Lab Studies: Microbiology Studies 05/30/17 10:22 Gram Stain - Final Pleural Fluid Body Fluid Culture - Preliminary NO GROWTH AFTER 24 HOURS Lab Studies 06/01/17 06/01/17 06/01/17 Range/Units 05:55 05:30 05:30 WBC 8.9 (4.8-10.8) K/uL RBC 3.31 L (3.80-5.20) Mil/uL Hgb 10.5 L (12.0-16.0) g/dL Hct 34.1 (34.0-47.0) % MCV 103.0 H (81.0-99.0) fl MCH 31.9 H (27.0-31.0) pg MCHC 30.9 L (33.0-37.0) g/dL RDW 18.6 H (11.5-14.5) % Plt Count 151 (130-400) K/uL Sodium 148 (132-148) mmol/l Potassium 3.7 (3.6-5.0) MMOL/L Chloride 101 (98-107) mmol/L Carbon Dioxide 37 H (22-30) mmol/L Anion Gap 14 (10-20) BUN 31 H (7-17) mg/dl Creatinine 1.1 (0.7-1.2) mg/dL Est GFR ( Amer) 57 Est GFR (Non-Af Amer) 47 POC Glucose (mg/dL) 130 H (65-110) mg/dL Random Glucose 124 H (65-105) mg/dL Lactic Acid (0.7-2.1) MMOL/L Calcium 9.8 (8.4-10.2) mg/dL 05/31/17 05/31/17 05/31/17 Range/Units 22:19 16:46 15:00 WBC (4.8-10.8) K/uL RBC (3.80-5.20) Mil/uL Hgb (12.0-16.0) g/dL Hct (34.0-47.0) % MCV (81.0-99.0) fl MCH (27.0-31.0) pg MCHC (33.0-37.0) g/dL RDW (11.5-14.5) % Plt Count (130-400) K/uL Sodium (132-148) mmol/l Potassium (3.6-5.0) MMOL/L Chloride (98-107) mmol/L Carbon Dioxide (22-30) mmol/L Anion Gap (10-20) BUN (7-17) mg/dl Creatinine (0.7-1.2) mg/dL Est GFR ( Amer) Est GFR (Non-Af Amer) POC Glucose (mg/dL) 114 H 150 H (65-110) mg/dL Random Glucose (65-105) mg/dL Lactic Acid 0.7 (0.7-2.1) MMOL/L Calcium (8.4-10.2) mg/dL 05/31/17 Range/Units 11:05 WBC (4.8-10.8) K/uL RBC (3.80-5.20) Mil/uL Hgb (12.0-16.0) g/dL Hct (34.0-47.0) % MCV (81.0-99.0) fl MCH (27.0-31.0) pg MCHC (33.0-37.0) g/dL RDW (11.5-14.5) % Plt Count (130-400) K/uL Sodium (132-148) mmol/l Potassium (3.6-5.0) MMOL/L Chloride (98-107) mmol/L Carbon Dioxide (22-30) mmol/L Anion Gap (10-20) BUN (7-17) mg/dl Creatinine (0.7-1.2) mg/dL Est GFR ( Amer) Est GFR (Non-Af Amer) POC Glucose (mg/dL) 261 H (65-110) mg/dL Random Glucose (65-105) mg/dL Lactic Acid (0.7-2.1) MMOL/L Calcium (8.4-10.2) mg/dL Laboratory Results - last 24 hr 05/31/17 05/31/17 05/31/17 11:05 15:00 16:46 WBC RBC Hgb Hct MCV MCH MCHC RDW Plt Count Sodium Potassium Chloride Carbon Dioxide Anion Gap BUN Creatinine Est GFR ( Amer) Est GFR (Non-Af Amer) POC Glucose (mg/dL) 261 H 150 H Random Glucose Lactic Acid 0.7 Calcium 05/31/17 06/01/17 06/01/17 22:19 05:30 05:30 WBC 8.9 RBC 3.31 L Hgb 10.5 L Hct 34.1 MCV 103.0 H MCH 31.9 H MCHC 30.9 L RDW 18.6 H Plt Count 151 Sodium 148 Potassium 3.7 Chloride 101 Carbon Dioxide 37 H Anion Gap 14 BUN 31 H Creatinine 1.1 Est GFR ( Amer) 57 Est GFR (Non-Af Amer) 47 POC Glucose (mg/dL) 114 H Random Glucose 124 H Lactic Acid Calcium 9.8 06/01/17 05:55 WBC RBC Hgb Hct MCV MCH MCHC RDW Plt Count Sodium Potassium Chloride Carbon Dioxide Anion Gap BUN Creatinine Est GFR ( Amer) Est GFR (Non-Af Amer) POC Glucose (mg/dL) 130 H Random Glucose Lactic Acid Calcium Fingerstick Blood Sugar Results: 130 Review of Systems - Review of Systems Systems not reviewed;Unavailable: Altered Mental Status - Cardiovascular Cardiovascular: Dyspnea. absent: Chest Pain, Diaphoresis - Respiratory Respiratory: Cough, Dyspnea, Chest Congestion. absent: Wheezing Critical Care Progress Note - Extremities/Vascular Does the Patient have a Central Venous Catheter?: No Does the Patient need a Central Venous Catheter?: No Does the Patient have a Mackey Catheter?: Yes Does the Patient need a Mackey Catheter?: Yes - Nutrition Nutrition: Nutrition Category Date Time Status Dysphagia/Modified Consistency Diet [DIET] Diets 05/23/17 Dinner Active Assessment/Plan (1) Acute respiratory failure with hypercapnia Current Visit: Yes Status: Acute Comment: Maxipeme 1 gm IVPB Q Daily S/p Pleural fluid drainage (2) Cardiomyopathy Current Visit: No Status: Chronic Priority: High Comment: Dilated CMY with Systolic dysfunction with EF ~ 15%; AICD in place; valvular dysfunction with moderate to severe pulm HTN Cont PO Lasix and Spironolactone Cont Coreg (3) CHF (congestive heart failure) Current Visit: Yes Status: Chronic Priority: High (4) Coagulopathy Current Visit: No Status: Acute Comment: No evidance of bleeding (5) Pleural effusion Current Visit: No Status: Acute Priority: High Comment: Moderate right pleural effusion. S/p Thoracocentesis on 05/30 700 cc of travis colored fluid drained (6) Sepsis Current Visit: No Status: Acute Priority: High Comment: Maxipeme 1 gm IVPB Q Daily Cultures NTD (7) Atrial fibrillation with controlled ventricular response Current Visit: No Status: Chronic Priority: Medium Comment: Rate controlled Eliquis Re-started Continue Coreg (8) COPD (chronic obstructive pulmonary disease) Current Visit: No Status: Chronic Priority: High Comment: COPD stable - Xopenex via nebulizer q 8hrs PRN - Cont O2 therapy
--- NOTE | 2017-06-01 10:18 | CP.PCM.PN ---
Subjective - Date & Time of Evaluation Date of Evaluation: 06/01/17 Time of Evaluation: 10:00 - Subjective Subjective: Appears exhausted Dyspnoic at rest (resp rate 20-22 BPM) Often mouth breathes due to air hunger and Pulse OX drops to 90% Otherwise Pulse OX 94-95% on N/C O2 supplement VVI paced rhythm with BP 116/70 mm Hg JVP flat Has a non productive cough (TOO infirm to expectorate) Bronchial secretions++ Apical syst murmur+ HB 10.5 Gms (On Fe supplement) PLTLT count 151K Mild azotemia (Stable) K+ normal Off of pressors Will attempt PT starting tomorrow Given her profound CHF she may fail an attemt to initiate it. Objective - Vital Signs/Intake and Output Vital Signs (last 24 hours): Temp Pulse Resp BP Pulse Ox 96.4 F L 92 H 18 129/71 98 06/01/17 08:00 06/01/17 08:00 06/01/17 08:00 06/01/17 09:32 06/01/17 08:00 Intake and Output: 06/01/17 06/01/17 06:59 18:59 Intake Total 460 120 Output Total 400 Balance 60 120 - Medications Medications: Current Medications Acetaminophen (Tylenol 325mg Tab) 325 mg PO Q6H PRN PRN Reason: Headache Last Admin: 05/31/17 13:01 Dose: 325 mg Acetazolamide (Diamox 250 Mg Tab) 500 mg PO BIDWM [facility] Last Admin: 06/01/17 09:30 Dose: 500 mg Allopurinol (Zyloprim) 100 mg PO DAILY [facility] Last Admin: 06/01/17 09:31 Dose: 100 mg Apixaban (Eliquis) 2.5 mg PO BID [facility] PRN Reason: Protocol Last Admin: 06/01/17 09:30 Dose: 2.5 mg Benzonatate (Tessalon Perles) 200 mg PO TID PRN PRN Reason: Cough Last Admin: 05/31/17 13:49 Dose: 200 mg Carvedilol (Coreg) 3.125 mg PO Q12 [facility] Last Admin: 06/01/17 09:29 Dose: 3.125 mg Ferrous Sulfate (Feosol) 325 mg PO BID [facility] Last Admin: 06/01/17 09:30 Dose: 325 mg Furosemide (Lasix) 60 mg IV Q12 [facility] Last Admin: 06/01/17 09:32 Dose: 60 mg Glipizide (Glucotrol) 10 mg PO BIDAC [facility] Last Admin: 06/01/17 09:31 Dose: 10 mg Home Med (Cyclosporine [Restasis]) 1 drop BOTHEYES BID [facility] Last Admin: 06/01/17 09:31 Dose: 1 drop Home Med (Dorzolamide 2%/Timolol 0.5% [Cosopt 2%-0.5% Opht]) 1 drop EACHEYE BID [facility] Last Admin: 05/29/17 08:31 Dose: 1 drop Home Med (Tafluprost/Pf [Zioptan 0.0015% Eye Drops]) 1 drop EACHEYE HS [facility] Last Admin: 05/31/17 21:00 Dose: 1 drop Hydrocortisone (Anusol-Hc) 1 applic HI BID [facility] Last Admin: 06/01/17 09:35 Dose: 1 applic Cefepime HCl 1 gm/ Dextrose 100 mls @ 100 mls/hr IVPB DAILY@2100 [facility] Insulin Detemir (Levemir) 8 units SC DAILY [facility] Last Admin: 06/01/17 09:34 Dose: 8 units Insulin Human Regular (Humulin R) 0 units SC ACHS [facility] PRN Reason: Protocol Last Admin: 06/01/17 07:03 Dose: Not Given Lactobacillus Acidophilus (Bacid Acidophilus) 1 cap PO BID [facility] Last Admin: 06/01/17 09:34 Dose: 1 cap Levalbuterol HCl (Xopenex) 0.63 mg INH RQ8 [facility] Last Admin: 06/01/17 07:31 Dose: 0.63 mg Levalbuterol HCl (Xopenex) 0.63 mg INH RQ8 PRN PRN Reason: Shortness of Breath Last Admin: 05/31/17 14:02 Dose: 0.63 mg Pantoprazole Sodium (Protonix Ec Tab) 40 mg PO DAILY [facility] Last Admin: 06/01/17 09:31 Dose: 40 mg Sitagliptin Phosphate (Januvia) 50 mg PO DAILY [facility] Last Admin: 06/01/17 09:31 Dose: 50 mg Spironolactone (Aldactone) 50 mg PO DAILY [facility] Last Admin: 06/01/17 09:28 Dose: 50 mg - Labs Labs: 06/01/17 05:30 06/01/17 05:30 PT 16.0 Seconds (9.8-13.1) H 05/28/17 04:55 INR 1.5 (0.9-1.2) H 05/28/17 04:55 APTT 34.3 Seconds (25.6-37.1) 05/28/17 04:55
[2017-06-01] MEDS: Cefepime 1 GM in Dextrose 5% In Water 100 ML IVPB SCH (20:56)
[2017-06-01] MEDS: TAFLUPROST EACHEYE SCH (21:02)
[2017-06-02] MEDS: Levalbuterol 0.63 MG/3 ML Inhal Soln UD INH SCH ×3 (00:46→15:49)
[2017-06-02 05:03] LABS: HEMATOCRIT 33.2 % (34.0-47.0); MEAN CELL VOLUME 100.7 fl (81.0-99.0); MEAN CORPUSCULAR HGB CONC 30.8 g/dL (33.0-37.0); RED CELL DISTRIBUTION WIDTH 17.5 % (11.5-14.5); WHITE BLOOD COUNT 18.1 K/uL (4.8-10.8)
[2017-06-02 05:11] LABS: CALCIUM 9.5 mg/dL (8.4-10.2); POTASSIUM 3.3 MMOL/L (3.6-5.0)
[2017-06-02] MEDS: Insulin Regular 100 units/ml SC SCH ×4 (06:31→22:33)
[2017-06-02] MEDS ORDERED: Chlorhexidine Gluconate 1 APPL/PKT TP ONE (08:23)
--- NOTE | 2017-06-02 08:47 | CP.PCM.PN ---
Subjective - Date & Time of Evaluation Date of Evaluation: 06/02/17 Time of Evaluation: 08:39 - Subjective Subjective: Interin events, labs and CXR reviewed. Leukocytosis 18 noted this morning. Remains afebrile, adequate oxygenation. Profoundly fatigued. Ineffective cough. Coarse rhonchi present bilaterally. No wheeze. Breath sounds are diminished bilaterally, status quo. No audible wheezes or bronchial breath sounds. No dullness on chest percussion anteriorly. No subcutaneous emphysema. Neck is supple, trachea is midline. Attempted to girls swimming coach her to cough-ineffective. Tried bilateral chest percussion-ineffective. Tried naso-tracheal suctioning-unable to pass catheter on either side. Too fatigued, would be unable to cooperate for use of cough assist device. Continue aerosol therapy. Add acetylcysteine. Keep encouraging deep breathing and cough. Started on cefepime, may need renal adjusted vanco. Will discuss further with PMD and ID. Objective - Vital Signs/Intake and Output Vital Signs (last 24 hours): Temp Pulse Resp BP Pulse Ox 98.5 F 92 H 30 H 124/62 95 06/02/17 04:00 06/02/17 06:00 06/02/17 08:10 06/02/17 06:00 06/02/17 06:00 Intake and Output: 06/01/17 06/02/17 23:59 11:59 Intake Total 390 150 Output Total 250 600 Balance 140 -450 - Medications Medications: Current Medications Acetaminophen (Tylenol 325mg Tab) 325 mg PO Q6H PRN PRN Reason: Headache Last Admin: 05/31/17 13:01 Dose: 325 mg Acetazolamide (Diamox 250 Mg Tab) 500 mg PO BIDWM [facility] Last Admin: 06/01/17 19:03 Dose: Not Given Acetylcysteine (Mucomyst 10% 4ml) 2 ml IH RBID [facility] Allopurinol (Zyloprim) 100 mg PO DAILY [facility] Last Admin: 06/01/17 09:31 Dose: 100 mg Apixaban (Eliquis) 2.5 mg PO BID [facility] PRN Reason: Protocol Last Admin: 06/01/17 20:52 Dose: 2.5 mg Benzonatate (Tessalon Perles) 200 mg PO TID PRN PRN Reason: Cough Last Admin: 05/31/17 13:49 Dose: 200 mg Carvedilol (Coreg) 3.125 mg PO Q12 [facility] Last Admin: 06/01/17 20:49 Dose: 3.125 mg Ferrous Sulfate (Feosol) 325 mg PO BID [facility] Last Admin: 06/01/17 19:03 Dose: Not Given Furosemide (Lasix) 60 mg IV Q12 [facility] Last Admin: 06/01/17 20:54 Dose: 60 mg Glipizide (Glucotrol) 10 mg PO BIDAC [facility] Last Admin: 06/01/17 18:00 Dose: Not Given Home Med (Cyclosporine [Restasis]) 1 drop BOTHEYES BID [facility] Last Admin: 06/01/17 20:51 Dose: 1 drop Home Med (Dorzolamide 2%/Timolol 0.5% [Cosopt 2%-0.5% Opht]) 1 drop EACHEYE BID [facility] Last Admin: 05/29/17 08:31 Dose: 1 drop Home Med (Tafluprost/Pf [Zioptan 0.0015% Eye Drops]) 1 drop EACHEYE HS [facility] Last Admin: 06/01/17 21:02 Dose: 1 drop Hydrocortisone (Anusol-Hc) 1 applic CA BID [facility] Last Admin: 06/01/17 19:03 Dose: Not Given Cefepime HCl 1 gm/ Dextrose 100 mls @ 100 mls/hr IVPB DAILY@2100 [facility] Last Admin: 06/01/17 20:56 Dose: 100 mls/hr Insulin Detemir (Levemir) 8 units SC DAILY [facility] Last Admin: 06/01/17 09:34 Dose: 8 units Insulin Human Regular (Humulin R) 0 units SC ACHS [facility] PRN Reason: Protocol Last Admin: 06/02/17 06:31 Dose: Not Given Lactobacillus Acidophilus (Bacid Acidophilus) 1 cap PO BID [facility] Last Admin: 06/01/17 20:48 Dose: 1 cap Levalbuterol HCl (Xopenex) 0.63 mg INH RQ8 [facility] Last Admin: 06/02/17 07:51 Dose: 0.63 mg Levalbuterol HCl (Xopenex) 0.63 mg INH RQ8 PRN PRN Reason: Shortness of Breath Last Admin: 05/31/17 14:02 Dose: 0.63 mg Pantoprazole Sodium (Protonix Ec Tab) 40 mg PO DAILY [facility] Last Admin: 06/01/17 09:31 Dose: 40 mg Sitagliptin Phosphate (Januvia) 50 mg PO DAILY [facility] Last Admin: 06/01/17 09:31 Dose: 50 mg Spironolactone (Aldactone) 50 mg PO DAILY [facility] Last Admin: 06/01/17 09:28 Dose: 50 mg - Labs Labs: 06/02/17 04:30 06/02/17 04:30 PT 16.0 Seconds (9.8-13.1) H 05/28/17 04:55 INR 1.5 (0.9-1.2) H 05/28/17 04:55 APTT 34.3 Seconds (25.6-37.1) 05/28/17 04:55 Assessment and Plan (1) Chronic respiratory failure with hypoxia and hypercapnia Status: Chronic (2) CHF (congestive heart failure) Status: Chronic (3) COPD (chronic obstructive pulmonary disease) Status: Chronic (4) Pulmonary hypertension Status: Chronic
--- NOTE | 2017-06-02 08:57 | CP.CCUPN ---
CCU Subjective - Physician Review Events Since Last Encounter (Free Text): 06/02/17 13:29 The patient was Seen/interviewed and examined by me at the bedside, Medical records reviewed and Management issues were discussed and formulated with the house staff. Remains lethargic but easily arousable, responsive to verbal and tactile stimuli. Awake, oriented when waken up Comfortable, No distress noted Remains on HFNC at 40L/M, FIO2 of 35-55%, saturating low mid 90s% Moist cough with weak cough reflex, on Nebs, mucomyst added No chest pain/SOB at rest or headaches Intermittently anxious at times, received PRN Morphine 1mg IV Afebrile, VSS, BP 120s/70s Last 24H I&O 780/850 Poor PO intake, about 25% of meal consumed, on Ensure Labs this morning reviewed, H/H stable, stable renal function 31/1.1 WBC up 8.9-->18.1, Nasotracheal suction was atempted but unssuccesful, Clindamycin 600 mg IV Q 12H added today CCU Objective - Vital Signs / Intake & Output Vital Signs (Last 4 hours): Vital Signs Temp Pulse Resp BP Pulse Ox 06/02/17 08:10 30 H 06/02/17 08:00 98.0 F 89 20 126/75 92 L 06/02/17 06:00 92 H 29 H 124/62 95 06/02/17 05:25 29 H Intake and Output (Last 8hrs): Intake & Output 06/01/17 06/02/17 06/02/17 22:59 06:59 14:59 Intake Total 330 150 Output Total 250 600 Balance 80 -450 Intake: Intake, Piggyback 100 Oral 230 150 Output: Urine 250 600 Urethral (Mackey) 250 600 Other: # Bowel Movements 1 - Physical Exam Head: Positive for: Atraumatic, Normocephalic. Negative for: Tenderness, Contusion Pupils: Positive for: PERRL Extroacular Muscles: Positive for: EOMI Conjunctiva: Positive for: Normal. Negative for: Icteric Mouth: Positive for: Moist Mucous Membranes Pharnyx: Positive for: Normal Neck: Positive for: Normal Range of Motion, JVD. Negative for: Bruit Respiratory/Chest: Positive for: Respiratory Distress (mild dyspnea), Rhonchi ( bilateral). Negative for: Accessory Muscle Use, Wheezes Cardiovascular: Positive for: Regular Rate and Rhythm (Paced), Murmurs ( systolic murmur), Irregular Rhythm, Peripheal Pulses Present. Negative for: Rub Abdomen: Positive for: Normal Bowel Sounds. Negative for: Tenderness, Distention Upper Extremity: Positive for: Edema (mostly LUE) Lower Extremity: Positive for: Edema. Negative for: CALF TENDERNESS, Cyanosis Neurological: Positive for: Speech Normal, Motor Func Grossly Intact, Normal Sensory Function Skin: Positive for: Warm, Pale. Negative for: Rashes Psychiatric: Positive for: Oriented x 3 - Medications Active Medications: Active Medications Generic Name Dose Route Start Last Admin Trade Name Freq PRN Reason Stop Dose Admin Acetaminophen 325 mg 05/24/17 12:33 05/31/17 13:01 Tylenol 325mg Tab PO 325 mg Q6H PRN Administration Headache Acetazolamide 500 mg 05/28/17 09:56 06/01/17 19:03 Diamox 250 Mg Tab PO Not Given BIDWM [facility] Acetylcysteine 2 ml 06/02/17 20:00 Mucomyst 10% 4ml IH RBID [facility] Allopurinol 100 mg 05/25/17 09:00 06/01/17 09:31 Zyloprim PO 100 mg DAILY [facility] Administration Apixaban 2.5 mg 05/27/17 17:45 06/01/17 20:52 Eliquis PO 2.5 mg BID [facility] Administration Protocol Benzonatate 200 mg 05/24/17 12:33 05/31/17 13:49 Tessalon Perles PO 200 mg TID PRN Administration Cough Carvedilol 3.125 mg 05/23/17 21:00 06/01/17 20:49 Coreg PO 3.125 mg Q12 [facility] Administration Ferrous Sulfate 325 mg 05/24/17 17:00 06/01/17 19:03 Feosol PO Not Given BID [facility] Furosemide 60 mg 05/23/17 21:00 06/01/17 20:54 Lasix IV 60 mg Q12 [facility] Administration Glipizide 10 mg 05/25/17 16:30 06/01/17 18:00 Glucotrol PO Not Given BIDAC [facility] Home Med 1 drop 05/24/17 17:00 06/01/17 20:51 Cyclosporine [Restasis] BOTHEYES 1 drop BID [facility] Administration Home Med 1 drop 05/24/17 17:00 05/29/17 08:31 Dorzolamide 2%/Timolol 0.5% [Cosopt 2%-0.5% Opht] EACHEYE 1 drop BID [facility] Administration Home Med 1 drop 05/24/17 22:00 06/01/17 21:02 Tafluprost/Pf [Zioptan 0.0015% Eye Drops] EACHEYE 1 drop HS [facility] Administration Hydrocortisone 1 applic 05/24/17 17:00 06/01/17 19:03 Anusol-Hc IA Not Given BID [facility] Cefepime HCl 1 gm/ Dextrose 100 mls @ 100 mls/hr 06/01/17 21:00 06/01/17 20: 56 IVPB 100 mls/hr DAILY@2100 [facility] Administration Insulin Detemir 8 units 06/01/17 09:00 06/01/17 09:34 Levemir SC 8 units DAILY [facility] Administration Insulin Human Regular 0 units 05/25/17 16:30 06/02/17 06:31 Humulin R SC Not Given ACHS [facility] Protocol Lactobacillus Acidophilus 1 cap 06/01/17 09:00 06/01/17 20:48 Bacid Acidophilus PO 1 cap BID [facility] Administration Levalbuterol HCl 0.63 mg 05/23/17 21:00 06/02/17 07:51 Xopenex INH 0.63 mg RQ8 [facility] Administration Levalbuterol HCl 0.63 mg 05/24/17 12:40 05/31/17 14:02 Xopenex INH 0.63 mg RQ8 PRN Administration Shortness of Breath Pantoprazole Sodium 40 mg 05/29/17 09:00 06/01/17 09:31 Protonix Ec Tab PO 40 mg DAILY [facility] Administration Sitagliptin Phosphate 50 mg 05/25/17 09:00 06/01/17 09:31 Januvia PO 50 mg DAILY [facility] Administration Spironolactone 50 mg 05/28/17 10:00 06/01/17 09:28 Aldactone PO 50 mg DAILY [facility] Administration - Patient Studies Lab Studies: Microbiology Studies 05/30/17 10:22 Gram Stain - Final Pleural Fluid Body Fluid Culture - Preliminary NO GROWTH AFTER 2 DAYS Lab Studies 06/02/17 06/02/17 06/02/17 Range/Units 06:10 04:30 04:30 WBC 18.1 H D (4.8-10.8) K/uL RBC 3.30 L (3.80-5.20) Mil/uL Hgb 10.2 L (12.0-16.0) g/dL Hct 33.2 L (34.0-47.0) % MCV 100.7 H D (81.0-99.0) fl MCH 31.0 (27.0-31.0) pg MCHC 30.8 L (33.0-37.0) g/dL RDW 17.5 H (11.5-14.5) % Plt Count 155 (130-400) K/uL Sodium 148 (132-148) mmol/l Potassium 3.3 L (3.6-5.0) MMOL/L Chloride 101 (98-107) mmol/L Carbon Dioxide 36 H (22-30) mmol/L Anion Gap 14 (10-20) BUN 35 H (7-17) mg/dl Creatinine 1.1 (0.7-1.2) mg/dL Est GFR ( Amer) 57 Est GFR (Non-Af Amer) 47 POC Glucose (mg/dL) 190 H (65-110) mg/dL Random Glucose 155 H (65-105) mg/dL Calcium 9.5 (8.4-10.2) mg/dL 06/01/17 06/01/17 Range/Units 19:32 06:36 WBC (4.8-10.8) K/uL RBC (3.80-5.20) Mil/uL Hgb (12.0-16.0) g/dL Hct (34.0-47.0) % MCV (81.0-99.0) fl MCH (27.0-31.0) pg MCHC (33.0-37.0) g/dL RDW (11.5-14.5) % Plt Count (130-400) K/uL Sodium (132-148) mmol/l Potassium (3.6-5.0) MMOL/L Chloride (98-107) mmol/L Carbon Dioxide (22-30) mmol/L Anion Gap (10-20) BUN (7-17) mg/dl Creatinine (0.7-1.2) mg/dL Est GFR ( Amer) Est GFR (Non-Af Amer) POC Glucose (mg/dL) 197 H 233 H (65-110) mg/dL Random Glucose (65-105) mg/dL Calcium (8.4-10.2) mg/dL Laboratory Results - last 24 hr 06/01/17 06/01/17 06/02/17 06:36 19:32 04:30 WBC 18.1 H D RBC 3.30 L Hgb 10.2 L Hct 33.2 L MCV 100.7 H D MCH 31.0 MCHC 30.8 L RDW 17.5 H Plt Count 155 Sodium Potassium Chloride Carbon Dioxide Anion Gap BUN Creatinine Est GFR ( Amer) Est GFR (Non-Af Amer) POC Glucose (mg/dL) 233 H 197 H Random Glucose Calcium 06/02/17 06/02/17 04:30 06:10 WBC RBC Hgb Hct MCV MCH MCHC RDW Plt Count Sodium 148 Potassium 3.3 L Chloride 101 Carbon Dioxide 36 H Anion Gap 14 BUN 35 H Creatinine 1.1 Est GFR ( Amer) 57 Est GFR (Non-Af Amer) 47 POC Glucose (mg/dL) 190 H Random Glucose 155 H Calcium 9.5 Fingerstick Blood Sugar Results: 190 Critical Care Progress Note - Nutrition Nutrition: Nutrition Category Date Time Status Dysphagia/Modified Consistency Diet [DIET] Diets 05/23/17 Dinner Active Assessment/Plan (1) Acute respiratory failure with hypercapnia Current Visit: Yes Status: Acute Comment: Maxipeme 1 gm IVPB Q Daily Clindamycin 600 mg IV Q 12H added today 06/01 S/p Pleural fluid drainage (2) Cardiomyopathy Current Visit: No Status: Chronic Priority: High Comment: Dilated CMY with Systolic dysfunction with EF ~ 15%; AICD in place; valvular dysfunction with moderate to severe pulm HTN Cont PO Lasix and Spironolactone Cont Coreg Eliquis 2.5 mg PO BID (3) Coagulopathy Current Visit: No Status: Acute Comment: No evidance of bleeding (4) Pleural effusion Current Visit: No Status: Acute Priority: High Comment: Moderate right pleural effusion. S/p Thoracocentesis on 05/30 700 cc of travis colored fluid drained (5) Sepsis Current Visit: No Status: Acute Priority: High Comment: Maxipeme 1 gm IVPB Q Daily Cultures NTD (6) Atrial fibrillation with controlled ventricular response Current Visit: No Status: Chronic Priority: Medium Comment: Rate controlled Re-started Eliquis 2.5 mg PO BID Continue Coreg (7) COPD (chronic obstructive pulmonary disease) Current Visit: No Status: Chronic Priority: High Comment: COPD stable - Xopenex via nebulizer q 8hrs PRN - Cont O2 therapy (8) Prophylactic measure Current Visit: Yes Status: Acute Comment: Eliquis 2.5 mg PO BID Pantoprazole 40 mg PO DAILY
[2017-06-02] MEDS ORDERED: Potassium Chloride 20 mEq/15 ml LIQ UD PO ONE (09:41)
--- NOTE | 2017-06-02 09:51 | CP.PCM.PN ---
Subjective - Date & Time of Evaluation Date of Evaluation: 06/02/17 Time of Evaluation: 08:20 - Subjective Subjective: Appears exhausted, more so than yesterday Unable to keep her eyes open and responds to loud call by feebly nodding Mouthbreathes due to air hunger Pulse ox often drops to 89-88% (Pt put on ventimask) Paced rhythm woth BP 108/ 66 mm Hg JVP flat Poor insp effort, few crepitation audible Afebrile with leucocytosis (18.1K) PLTLT count stable HypoK+ (K+ replacement ordered. Discussed with Dr. Mcmahan ID to see pt today (ABx have been initiated) Poss sources of inf Lung or bladder (Has had a Mackey catheter for >8 days) Urine culture sent. Prognosis poor. Clinical situation explained to the son Pt's children have agreed that she should not be revived in case of Card/resp attest. Objective - Vital Signs/Intake and Output Vital Signs (last 24 hours): Temp Pulse Resp BP Pulse Ox 98.0 F 89 30 H 126/75 92 L 06/02/17 08:00 06/02/17 08:00 06/02/17 08:10 06/02/17 09:12 06/02/17 08:00 Intake and Output: 06/02/17 06/02/17 06:59 18:59 Intake Total 420 200 Output Total 600 Balance -180 200 - Medications Medications: Current Medications Acetaminophen (Tylenol 325mg Tab) 325 mg PO Q6H PRN PRN Reason: Headache Last Admin: 05/31/17 13:01 Dose: 325 mg Acetazolamide (Diamox 250 Mg Tab) 500 mg PO BIDWM [facility] Last Admin: 06/01/17 19:03 Dose: Not Given Acetylcysteine (Mucomyst 10% 4ml) 2 ml IH RBID [facility] Allopurinol (Zyloprim) 100 mg PO DAILY [facility] Last Admin: 06/01/17 09:31 Dose: 100 mg Apixaban (Eliquis) 2.5 mg PO BID [facility] PRN Reason: Protocol Last Admin: 06/01/17 20:52 Dose: 2.5 mg Benzonatate (Tessalon Perles) 200 mg PO TID PRN PRN Reason: Cough Last Admin: 05/31/17 13:49 Dose: 200 mg Carvedilol (Coreg) 3.125 mg PO Q12 [facility] Last Admin: 06/01/17 20:49 Dose: 3.125 mg Ferrous Sulfate (Feosol) 325 mg PO BID [facility] Last Admin: 06/01/17 19:03 Dose: Not Given Furosemide (Lasix) 60 mg IV Q12 [facility] Last Admin: 06/02/17 09:12 Dose: 60 mg Glipizide (Glucotrol) 10 mg PO BIDAC [facility] Last Admin: 06/01/17 18:00 Dose: Not Given Home Med (Cyclosporine [Restasis]) 1 drop BOTHEYES BID [facility] Last Admin: 06/01/17 20:51 Dose: 1 drop Home Med (Dorzolamide 2%/Timolol 0.5% [Cosopt 2%-0.5% Opht]) 1 drop EACHEYE BID [facility] Last Admin: 05/29/17 08:31 Dose: 1 drop Home Med (Tafluprost/Pf [Zioptan 0.0015% Eye Drops]) 1 drop EACHEYE HS [facility] Last Admin: 06/01/17 21:02 Dose: 1 drop Hydrocortisone (Anusol-Hc) 1 applic OR BID [facility] Last Admin: 06/01/17 19:03 Dose: Not Given Cefepime HCl 1 gm/ Dextrose 100 mls @ 100 mls/hr IVPB DAILY@2100 [facility] Last Admin: 06/01/17 20:56 Dose: 100 mls/hr Insulin Detemir (Levemir) 8 units SC DAILY [facility] Last Admin: 06/01/17 09:34 Dose: 8 units Insulin Human Regular (Humulin R) 0 units SC ACHS [facility] PRN Reason: Protocol Last Admin: 06/02/17 06:31 Dose: Not Given Lactobacillus Acidophilus (Bacid Acidophilus) 1 cap PO BID [facility] Last Admin: 06/01/17 20:48 Dose: 1 cap Levalbuterol HCl (Xopenex) 0.63 mg INH RQ8 [facility] Last Admin: 06/02/17 07:51 Dose: 0.63 mg Levalbuterol HCl (Xopenex) 0.63 mg INH RQ8 PRN PRN Reason: Shortness of Breath Last Admin: 05/31/17 14:02 Dose: 0.63 mg Pantoprazole Sodium (Protonix Ec Tab) 40 mg PO DAILY [facility] Last Admin: 06/01/17 09:31 Dose: 40 mg Potassium Chloride (Potassium Chloride Oral Soln) 20 meq PO ONCE ONE Stop: 06/02/17 09:42 Sitagliptin Phosphate (Januvia) 50 mg PO DAILY [facility] Last Admin: 06/01/17 09:31 Dose: 50 mg Spironolactone (Aldactone) 50 mg PO DAILY [facility] Last Admin: 06/01/17 09:28 Dose: 50 mg - Labs Labs: 06/02/17 04:30 06/02/17 04:30 PT 16.0 Seconds (9.8-13.1) H 05/28/17 04:55 INR 1.5 (0.9-1.2) H 05/28/17 04:55 APTT 34.3 Seconds (25.6-37.1) 05/28/17 04:55
[2017-06-02] MEDS: Hydrocortisone 2.5% (Rectal) CREAM PR SCH ×2 (09:53→17:26)
[2017-06-02] MEDS: Pantoprazole 40 mg EC Tab PO SCH (09:53)
[2017-06-02] MEDS: Lactobacillus Acidophilus 500 MU Cap PO SCH ×2 (09:54→17:26)
[2017-06-02] MEDS: Insulin Detemir 100 Units/ml Inj SC SCH (09:55)
[2017-06-02] MEDS: Patient's Own Med (Cyclosporine [Restasis] 1 DROP) BOTHEYES SCH ×2 (09:56→17:27)
[2017-06-02 11:27] LABS: RBC URINE 6 /hpf (0-3); RENAL EPITHELIAL < 1 /hpf (0-3); URINE BILIRUBIN NEGATIVE (NEGATIVE); URINE BLOOD SMALL (NEGATIVE); URINE CALCIUM OXALATE CRYSTALS RARE /hpf (<OCC); URINE COLOR YELLOW (YELLOW); URINE GLUCOSE (UA) NEG (Normal); URINE KETONE NEGATIVE (NEGATIVE); URINE LEUKOCYTE ESTERASE LARGE Leu/uL (Negative); URINE PROTEIN 30 mg/dL (NEGATIVE); URINE TRIPLE PHOSPHATE CRYSTAL RARE /hpf (<OCC); URINE UROBILINOGEN 0.2-1.0 mg/dL (0.2-1.0); WBC CLUMPS RARE /hpf; WBC URINE 35 /hpf (0-5)
--- NOTE | 2017-06-02 12:16 | CP.PCM.PN ---
Subjective - Date & Time of Evaluation Date of Evaluation: 06/02/17 Time of Evaluation: 12:17 - Subjective Subjective: ID NOTE WBC IS 18 TODAY PULMONARY ATTEMPTED TO SUCTION SECRETIONS BUT WAS UNABLE TO PASS CANNULA THROUGH NARES LUNGS :DECREASED BREATH SOUNDS RHONCHI BILATERALLY HAVE ADDED CLINDAMYCIN AFTER EVALUATING POSSIBILITY OF USING ZYVOX/VANCOMYCIN/MEROPENEM/ZOSYN AND ALL THEIR POSITIVES AND NEGATIVES WE NEED TO COVER GRAM POSITIVES WELL ANAEROBES THIS PULMONARY INFECTION LIKELY HAS ELEMENT OF MICRO ASPIRATION CONSIDERING UPPER AIRWAY CLINICAL FINDINGS. CLINDAMYCIN 600MG IN 50ML D5W Q12 HAS BEEN ORDERED CONTINUE MAXIPEME 1 GM IN 100ML D5W Q24H Objective - Vital Signs/Intake and Output Vital Signs (last 24 hours): Temp Pulse Resp BP Pulse Ox 98.0 F 80 31 H 119/64 93 L 06/02/17 08:00 06/02/17 10:00 06/02/17 11:21 06/02/17 10:00 06/02/17 10:00 Intake and Output: 06/02/17 06/02/17 06:59 18:59 Intake Total 420 400 Output Total 600 Balance -180 400 - Medications Medications: Current Medications Acetaminophen (Tylenol 325mg Tab) 325 mg PO Q6H PRN PRN Reason: Headache Last Admin: 05/31/17 13:01 Dose: 325 mg Acetazolamide (Diamox 250 Mg Tab) 500 mg PO BIDWM [facility] Last Admin: 06/02/17 09:56 Dose: 500 mg Acetylcysteine (Mucomyst 10% 4ml) 2 ml IH RBID [facility] Allopurinol (Zyloprim) 100 mg PO DAILY [facility] Last Admin: 06/02/17 09:58 Dose: 100 mg Apixaban (Eliquis) 2.5 mg PO BID [facility] PRN Reason: Protocol Last Admin: 06/02/17 09:57 Dose: 2.5 mg Benzonatate (Tessalon Perles) 200 mg PO TID PRN PRN Reason: Cough Last Admin: 05/31/17 13:49 Dose: 200 mg Carvedilol (Coreg) 3.125 mg PO Q12 [facility] Last Admin: 06/02/17 09:54 Dose: 3.125 mg Ferrous Sulfate (Feosol) 325 mg PO BID [facility] Last Admin: 06/02/17 09:57 Dose: 325 mg Furosemide (Lasix) 60 mg IV Q12 [facility] Last Admin: 06/02/17 09:12 Dose: 60 mg Glipizide (Glucotrol) 10 mg PO BIDAC [facility] Last Admin: 06/02/17 08:00 Dose: Not Given Home Med (Cyclosporine [Restasis]) 1 drop BOTHEYES BID [facility] Last Admin: 06/02/17 09:56 Dose: 1 drop Home Med (Dorzolamide 2%/Timolol 0.5% [Cosopt 2%-0.5% Opht]) 1 drop EACHEYE BID [facility] Last Admin: 05/29/17 08:31 Dose: 1 drop Home Med (Tafluprost/Pf [Zioptan 0.0015% Eye Drops]) 1 drop EACHEYE HS [facility] Last Admin: 06/01/17 21:02 Dose: 1 drop Hydrocortisone (Anusol-Hc) 1 applic MS BID [facility] Last Admin: 06/02/17 09:53 Dose: 1 applic Cefepime HCl 1 gm/ Dextrose 100 mls @ 100 mls/hr IVPB DAILY@2100 [facility] Last Admin: 06/01/17 20:56 Dose: 100 mls/hr Insulin Detemir (Levemir) 8 units SC DAILY [facility] Last Admin: 06/02/17 09:55 Dose: 8 units Insulin Human Regular (Humulin R) 0 units SC ACHS [facility] PRN Reason: Protocol Last Admin: 06/02/17 06:31 Dose: Not Given Lactobacillus Acidophilus (Bacid Acidophilus) 1 cap PO BID [facility] Last Admin: 06/02/17 09:54 Dose: 1 cap Levalbuterol HCl (Xopenex) 0.63 mg INH RQ8 [facility] Last Admin: 06/02/17 07:51 Dose: 0.63 mg Levalbuterol HCl (Xopenex) 0.63 mg INH RQ8 PRN PRN Reason: Shortness of Breath Last Admin: 05/31/17 14:02 Dose: 0.63 mg Pantoprazole Sodium (Protonix Ec Tab) 40 mg PO DAILY [facility] Last Admin: 06/02/17 09:53 Dose: 40 mg Sitagliptin Phosphate (Januvia) 50 mg PO DAILY [facility] Last Admin: 06/02/17 11:01 Dose: 50 mg Spironolactone (Aldactone) 50 mg PO DAILY [facility] Last Admin: 06/02/17 09:53 Dose: 50 mg - Labs Labs: 06/02/17 04:30 06/02/17 04:30 PT 16.0 Seconds (9.8-13.1) H 05/28/17 04:55 INR 1.5 (0.9-1.2) H 05/28/17 04:55 APTT 34.3 Seconds (25.6-37.1) 05/28/17 04:55
[2017-06-02] MEDS ORDERED: Alum-Mag Hydrox-Simethicone Susp (30 mL) PO ONE (15:00)
--- NOTE | 2017-06-02 16:33 | PN ---
ENDOCRINOLOGY FOLLOWUP NOTE DATE: LOCATION: Room 421, ICU. This is an 87-year-old female with recent uncontrolled type 2 insulin-requiring diabetes, now being followed closely for metabolic management. Her oral intake continues to be variable and suboptimal at this time. Her glucose values have ranged from 190-267 mg/dL. Her glycemic fluctuations are expected with the variability of her oral intake at this time and underlying intercurrent physical stressors as noted. She presented here with congestive heart failure and advanced COPD and currently being followed closely for hemodynamic monitoring here in the ICU. Her latest chemistry showed a BUN of 35, sodium 148, potassium 3.3, chloride 101, CO2 36, glucose 155, and creatinine 1.1. So at this time, we will continue the basal insulin given as Levemir at 80 units subQ daily as ordered. We will continue also the dual oral hypoglycemic drug therapy as given with Januvia given as 50 mg daily and glipizide as 10 mg b.i.d. before meals as ordered. We will titrate incremental as indicated to optimize metabolic control. We will obtain serial chemistries and supplement accordingly needed. We will follow with you. Lauryn Chandra MD
--- NOTE | 2017-06-02 17:48 | PN ---
ENDO FOLLOWUP NOTE LOCATION: Room 421, ICU. SUBJECTIVE: This is an 87-year-old female with recent uncontrolled type 2 insulin-requiring diabetes presenting here with congestive heart failure and advanced COPD and is now being followed closely for metabolic management. Her glycemic levels are fluctuating but improved and the latest glucose levels today have ranged from 114-130 mg/dL. The latest chemistry shows a BUN of 31, sodium 148, potassium 3.7, chloride 101, CO2 of 37, glucose 124 and creatinine 1.1. So at this time, we will continue the combinational therapy given as Levemir at 8 units subcu daily as ordered. We will also continue the dual oral hypoglycemic drug therapy with glipizide given as 10 mg b.i.d. and Januvia 50 mg once daily as ordered. We will continue the low-dose correction scale using regular insulin as given. We will titrate incremental as indicated to optimize metabolic control. We will follow. Lauryn Chandra MD
[2017-06-02] MEDS: Acetylcysteine 10% 4 ML IH SCH (19:39)
[2017-06-02] MEDS: Levalbuterol 0.63 MG/3 ML Inhal Soln UD INH PRN (19:39)
[2017-06-02] MEDS: Cefepime 1 GM in Dextrose 5% In Water 100 ML IVPB SCH (21:00)
[2017-06-02] MEDS: TAFLUPROST EACHEYE SCH (22:12)
[2017-06-03] MEDS: Levalbuterol 0.63 MG/3 ML Inhal Soln UD INH SCH ×3 (00:07→19:25)
[2017-06-03 05:36] LABS: HEMATOCRIT 32.6 % (34.0-47.0); MEAN CORPUSCULAR HEMOGLOBIN 31.4 pg (27.0-31.0); MEAN CORPUSCULAR HGB CONC 31.1 g/dL (33.0-37.0); RED CELL DISTRIBUTION WIDTH 18.2 % (11.5-14.5); WHITE BLOOD COUNT 12.5 K/uL (4.8-10.8)
[2017-06-03] MEDS: Insulin Regular 100 units/ml SC SCH ×4 (06:58→22:40)
[2017-06-03 07:28] LABS: POTASSIUM 3.7 MMOL/L (3.6-5.0)
[2017-06-03 07:29] LABS: CALCIUM 9.4 mg/dL (8.4-10.2)
[2017-06-03] MEDS: Acetylcysteine 10% 4 ML IH SCH ×2 (08:00→19:25)
--- NOTE | 2017-06-03 08:53 | CP.PCM.PN ---
Subjective - Date & Time of Evaluation Date of Evaluation: 06/03/17 Time of Evaluation: 08:51 - Subjective Subjective: Interim events reviewed. Tolerated BiPAP ventilation overnight. Maintains SpO2 95%+. BMP CO2 38, BUN up to 46. Lethargic, but awakened after a while and placed on HFNC. Initially doing well, awake, responding to questions from her son. She became confused and removed the HFNC after which there was persistent low SpO2 and increased duspnea. Placed back on BiPAP once again with gradual improvement. Has congested cough, but remains unable to expectorate. Coarse rhonchi are auscultated in both lower lobes when she coughs. No audible wheezing or bronchial breathing. Heart sounds are distant, rhythm seems regular, paced. Dependant edema almost resolved. No cyanosis! CXR being done presently. Continue antibiotics. Urine culture pending. Continue NPPV. Discussed with cardiology and pt's son. Objective - Vital Signs/Intake and Output Vital Signs (last 24 hours): Temp Pulse Resp BP Pulse Ox 96.6 F L 75 22 95/31 L 100 06/03/17 08:00 06/03/17 08:23 06/03/17 08:00 06/03/17 08:00 06/03/17 08:00 Intake and Output: 06/02/17 06/03/17 23:59 11:59 Intake Total 260 200 Output Total 250 350 Balance 10 -150 - Medications Medications: Current Medications Acetaminophen (Tylenol 325mg Tab) 325 mg PO Q6H PRN PRN Reason: Headache Last Admin: 05/31/17 13:01 Dose: 325 mg Acetazolamide (Diamox 250 Mg Tab) 500 mg PO BIDWM [facility] Last Admin: 06/02/17 17:27 Dose: Not Given Acetylcysteine (Mucomyst 10% 4ml) 2 ml IH RBID [facility] Last Admin: 06/03/17 08:00 Dose: 2 ml Allopurinol (Zyloprim) 100 mg PO DAILY [facility] Last Admin: 06/02/17 09:58 Dose: 100 mg Apixaban (Eliquis) 2.5 mg PO BID [facility] PRN Reason: Protocol Last Admin: 06/02/17 17:27 Dose: Not Given Benzonatate (Tessalon Perles) 200 mg PO TID PRN PRN Reason: Cough Last Admin: 05/31/17 13:49 Dose: 200 mg Carvedilol (Coreg) 3.125 mg PO Q12 [facility] Last Admin: 06/02/17 22:12 Dose: 3.125 mg Ferrous Sulfate (Feosol) 325 mg PO BID [facility] Last Admin: 06/02/17 17:28 Dose: Not Given Furosemide (Lasix) 60 mg IV Q12 [facility] Last Admin: 06/02/17 22:05 Dose: 60 mg Glipizide (Glucotrol) 10 mg PO BIDAC [facility] Last Admin: 06/03/17 07:00 Dose: Not Given Home Med (Cyclosporine [Restasis]) 1 drop BOTHEYES BID [facility] Last Admin: 06/02/17 17:27 Dose: Not Given Home Med (Dorzolamide 2%/Timolol 0.5% [Cosopt 2%-0.5% Opht]) 1 drop EACHEYE BID [facility] Last Admin: 05/29/17 08:31 Dose: 1 drop Home Med (Tafluprost/Pf [Zioptan 0.0015% Eye Drops]) 1 drop EACHEYE HS [facility] Last Admin: 06/02/17 22:12 Dose: 1 drop Hydrocortisone (Anusol-Hc) 1 applic [place] BID [facility] Last Admin: 06/02/17 17:26 Dose: Not Given Cefepime HCl 1 gm/ Dextrose 100 mls @ 100 mls/hr IVPB DAILY@2100 [facility] Last Admin: 06/02/17 21:00 Dose: 100 mls/hr Clindamycin Phosphate 600 mg/ (Dextrose) 54 mls @ 54 mls/hr IVPB Q12 [facility] Last Admin: 06/02/17 22:00 Dose: 54 mls/hr Insulin Detemir (Levemir) 8 units SC DAILY [facility] Last Admin: 06/02/17 09:55 Dose: 8 units Insulin Human Regular (Humulin R) 0 units SC ACHS [facility] PRN Reason: Protocol Last Admin: 06/03/17 06:58 Dose: Not Given Lactobacillus Acidophilus (Bacid Acidophilus) 1 cap PO BID [facility] Last Admin: 06/02/17 17:26 Dose: Not Given Levalbuterol HCl (Xopenex) 0.63 mg INH RQ8 [facility] Last Admin: 06/03/17 08:00 Dose: 0.63 mg Levalbuterol HCl (Xopenex) 0.63 mg INH RQ8 PRN PRN Reason: Shortness of Breath Last Admin: 06/02/17 19:39 Dose: 0.63 mg Pantoprazole Sodium (Protonix Ec Tab) 40 mg PO DAILY [facility] Last Admin: 06/02/17 09:53 Dose: 40 mg Sitagliptin Phosphate (Januvia) 50 mg PO DAILY [facility] Last Admin: 06/02/17 11:01 Dose: 50 mg Spironolactone (Aldactone) 50 mg PO DAILY [facility] Last Admin: 06/02/17 09:53 Dose: 50 mg - Labs Labs: 06/03/17 04:10 06/03/17 04:10 PT 16.0 Seconds (9.8-13.1) H 05/28/17 04:55 INR 1.5 (0.9-1.2) H 05/28/17 04:55 APTT 34.3 Seconds (25.6-37.1) 05/28/17 04:55 Assessment and Plan (1) Chronic respiratory failure with hypoxia and hypercapnia Status: Chronic (2) CHF (congestive heart failure) Status: Chronic (3) COPD (chronic obstructive pulmonary disease) Status: Chronic (4) Pulmonary hypertension Status: Chronic
--- NOTE | 2017-06-03 09:24 | CP.PCM.PN ---
Subjective - Date & Time of Evaluation Date of Evaluation: 06/03/17 Time of Evaluation: 08:50 - Subjective Subjective: Needed BiPAP to support adequate oxygenation Appears fatigued, nods feebly to loud calling Poor appetite, poor intake Pulse Ox 98% with FiO2 of 35% VVI paced rhythm with BP 96/70 mm Hg ( On BiPAP) Poor insp effort, few basal crepitations Apical syst murmur of MR+ Abd soft, no tenderness Labs: Leucocytosis resolving Hb/HCT stable BuN/Creatinin noted, K+ normal BUN has steadily risen to 46 Mg with GFR dropping Will reduce IV lasix to 40 Mg Q12h Pt seen with Dr. Mcmahan and discussed with Sap Bw Bi Developer Prognosis reyes guarded Objective - Vital Signs/Intake and Output Vital Signs (last 24 hours): Temp Pulse Resp BP Pulse Ox 96.6 F L 75 22 95/31 L 100 06/03/17 08:00 06/03/17 08:23 06/03/17 08:00 06/03/17 08:00 06/03/17 08:00 Intake and Output: 06/03/17 06/03/17 06:59 18:59 Intake Total 240 Output Total 400 Balance -160 - Medications Medications: Current Medications Acetaminophen (Tylenol 325mg Tab) 325 mg PO Q6H PRN PRN Reason: Headache Last Admin: 05/31/17 13:01 Dose: 325 mg Acetazolamide (Diamox 250 Mg Tab) 500 mg PO BIDWM [facility] Last Admin: 06/02/17 17:27 Dose: Not Given Acetylcysteine (Mucomyst 10% 4ml) 2 ml IH RBID [facility] Last Admin: 06/03/17 08:00 Dose: 2 ml Allopurinol (Zyloprim) 100 mg PO DAILY [facility] Last Admin: 06/02/17 09:58 Dose: 100 mg Apixaban (Eliquis) 2.5 mg PO BID [facility] PRN Reason: Protocol Last Admin: 06/02/17 17:27 Dose: Not Given Benzonatate (Tessalon Perles) 200 mg PO TID PRN PRN Reason: Cough Last Admin: 05/31/17 13:49 Dose: 200 mg Carvedilol (Coreg) 3.125 mg PO Q12 [facility] Last Admin: 06/02/17 22:12 Dose: 3.125 mg Ferrous Sulfate (Feosol) 325 mg PO BID [facility] Last Admin: 06/02/17 17:28 Dose: Not Given Furosemide (Lasix) 60 mg IV Q12 [facility] Last Admin: 06/02/17 22:05 Dose: 60 mg Glipizide (Glucotrol) 10 mg PO BIDAC [facility] Last Admin: 06/03/17 07:00 Dose: Not Given Home Med (Cyclosporine [Restasis]) 1 drop BOTHEYES BID [facility] Last Admin: 06/02/17 17:27 Dose: Not Given Home Med (Dorzolamide 2%/Timolol 0.5% [Cosopt 2%-0.5% Opht]) 1 drop EACHEYE BID [facility] Last Admin: 05/29/17 08:31 Dose: 1 drop Home Med (Tafluprost/Pf [Zioptan 0.0015% Eye Drops]) 1 drop EACHEYE HS [facility] Last Admin: 06/02/17 22:12 Dose: 1 drop Hydrocortisone (Anusol-Hc) 1 applic VT BID [facility] Last Admin: 06/02/17 17:26 Dose: Not Given Cefepime HCl 1 gm/ Dextrose 100 mls @ 100 mls/hr IVPB DAILY@2100 [facility] Last Admin: 06/02/17 21:00 Dose: 100 mls/hr Clindamycin Phosphate 600 mg/ (Dextrose) 54 mls @ 54 mls/hr IVPB Q12 [facility] Last Admin: 06/02/17 22:00 Dose: 54 mls/hr Insulin Detemir (Levemir) 8 units SC DAILY [facility] Last Admin: 06/02/17 09:55 Dose: 8 units Insulin Human Regular (Humulin R) 0 units SC ACHS [facility] PRN Reason: Protocol Last Admin: 06/03/17 06:58 Dose: Not Given Lactobacillus Acidophilus (Bacid Acidophilus) 1 cap PO BID [facility] Last Admin: 06/02/17 17:26 Dose: Not Given Levalbuterol HCl (Xopenex) 0.63 mg INH RQ8 [facility] Last Admin: 06/03/17 08:00 Dose: 0.63 mg Levalbuterol HCl (Xopenex) 0.63 mg INH RQ8 PRN PRN Reason: Shortness of Breath Last Admin: 06/02/17 19:39 Dose: 0.63 mg Pantoprazole Sodium (Protonix Ec Tab) 40 mg PO DAILY [facility] Last Admin: 06/02/17 09:53 Dose: 40 mg Sitagliptin Phosphate (Januvia) 50 mg PO DAILY [facility] Last Admin: 06/02/17 11:01 Dose: 50 mg Spironolactone (Aldactone) 50 mg PO DAILY [facility] Last Admin: 06/02/17 09:53 Dose: 50 mg - Labs Labs: 06/03/17 04:10 06/03/17 04:10 PT 16.0 Seconds (9.8-13.1) H 05/28/17 04:55 INR 1.5 (0.9-1.2) H 05/28/17 04:55 APTT 34.3 Seconds (25.6-37.1) 05/28/17 04:55
[2017-06-03] MEDS: Hydrocortisone 2.5% (Rectal) CREAM PR SCH ×2 (09:52→16:09)
[2017-06-03] MEDS: Lactobacillus Acidophilus 500 MU Cap PO SCH ×2 (09:53→16:10)
[2017-06-03] MEDS: Patient's Own Med (Cyclosporine [Restasis] 1 DROP) BOTHEYES SCH ×2 (09:54→16:44)
[2017-06-03] MEDS: Insulin Detemir 100 Units/ml Inj SC SCH (09:59)
[2017-06-03] MEDS: Pantoprazole 40 mg EC Tab PO SCH (10:00)
--- NOTE | 2017-06-03 11:38 | RAD ---
HISTORY: SOB COMPARISON: Portable chest 05/31/2017. FINDINGS: Left-sided pacemaker apparatus again identified with orphaned right-sided pacemaker leads again evident as well. Right PICC unchanged in position. LUNGS: The generator from the pacemaker obscures the lateral left base however there is increased opacity at the medial left lung base suspicious for probable atelectasis though an infiltrate is not excluded. Opacification is also felt to be increased at the right base suspicious for the same. Pneumonia remains difficult to completely exclude at both bases. Minimal right pleural effusions suspected. None is evident at the left. No pneumothorax bilaterally PLEURA: As above. CARDIOVASCULAR: Cardiac silhouette appears stable. No definite pulmonary vascular derangement. OSSEOUS STRUCTURES: No significant abnormalities. VISUALIZED UPPER ABDOMEN: Normal. OTHER FINDINGS: None. IMPRESSION: Bibasilar atelectasis favored over pneumonia though the latter is not excluded. Clinically correlate further. Limited right pleural effusion unchanged.
--- NOTE | 2017-06-03 11:55 | CP.CCUPN ---
CCU Subjective - Physician Review Events Since Last Encounter (Free Text): 06/03/17 14:08 The patient was Seen/interviewed and examined by me at the bedside, Medical records reviewed and Management issues were discussed and formulated with the house staff. More lethargic but easily arousable, responsive to verbal and tactile stimuli. Hypoxemic overnight and was place on BIPAP, O2 saturation maintaining on mid- 90s. Awake, oriented when waken up, However one episode of confusion today, removed the HFNC nd became hypoxemic, improved when placed on BIPAP. Comfortable, No distress noted On BIPAP 08/20, RR16, Fio2 of 70% saturating mid 90s% Moist cough with weak cough reflex, on Nebs, mucomyst added No chest pain/SOB at rest or headaches Intermittently anxious at times, received PRN Morphine 1mg IV Afebrile, VSS, BP 120s/70s Last 24H I&O 860/600 Poor PO intake, about 25% of meal consumed, on Ensure Labs this morning reviewed, H/H stable, worsening renal function 31/1.1 46/1.2 WBC up 8.9-->18.1, Clindamycin 600 mg IV Q 12H added yesterday, today WBC 12.5 No edema on physical exam, IV lasix dose reduced to 40 Mg Q12h Nasotracheal suction was attempted but unsuccessful Pt's current status is discussed with pt's family 06/03/17 14:12 CCU Objective - Vital Signs / Intake & Output Vital Signs (Last 4 hours): Vital Signs Temp Pulse Resp BP Pulse Ox 06/03/17 11:37 22 06/03/17 10:00 81 21 101/52 L 97 06/03/17 09:59 111/52 L 06/03/17 09:54 76 111/52 L 06/03/17 08:23 75 06/03/17 08:00 96.6 F L 75 22 95/31 L 100 Intake and Output (Last 8hrs): Intake & Output 06/02/17 06/03/17 06/03/17 22:59 06:59 14:59 Intake Total 140 200 50 Output Total 250 350 Balance -110 -150 50 Intake: IV 40 200 Intake, Piggyback 100 50 Output: Urine 250 350 Urethral (Mackey) 250 350 - Physical Exam Head: Positive for: Atraumatic, Normocephalic. Negative for: Tenderness, Contusion Pupils: Positive for: PERRL Extroacular Muscles: Positive for: EOMI Conjunctiva: Positive for: Normal. Negative for: Icteric Mouth: Positive for: Moist Mucous Membranes Pharnyx: Positive for: Normal Neck: Positive for: Normal Range of Motion, JVD. Negative for: Bruit Respiratory/Chest: Positive for: Respiratory Distress (mild dyspnea), Decreased Breath Sounds, Rhonchi (bilateral), Tachypneic. Negative for: Clear to Auscultation, Good Air Exchange, Accessory Muscle Use, Wheezes Cardiovascular: Positive for: Regular Rate and Rhythm (Paced), Murmurs ( systolic murmur), Irregular Rhythm, Peripheal Pulses Present. Negative for: Rub Abdomen: Positive for: Normal Bowel Sounds. Negative for: Tenderness, Distention Upper Extremity: Positive for: Edema (mostly LUE) Lower Extremity: Positive for: Edema. Negative for: CALF TENDERNESS, Cyanosis Neurological: Positive for: Speech Normal, Motor Func Grossly Intact, Normal Sensory Function Skin: Positive for: Warm, Pale. Negative for: Rashes Psychiatric: Positive for: Oriented x 3 - Medications Active Medications: Active Medications Generic Name Dose Route Start Last Admin Trade Name Freq PRN Reason Stop Dose Admin Acetaminophen 325 mg 05/24/17 12:33 05/31/17 13:01 Tylenol 325mg Tab PO 325 mg Q6H PRN Administration Headache Acetazolamide 500 mg 05/28/17 09:56 06/03/17 09:55 Diamox 250 Mg Tab PO 500 mg BIDWM [facility] Administration Acetylcysteine 2 ml 06/02/17 20:00 06/03/17 08:00 Mucomyst 10% 4ml IH 2 ml RBID [facility] Administration Allopurinol 100 mg 05/25/17 09:00 06/03/17 10:01 Zyloprim PO 100 mg DAILY [facility] Administration Apixaban 2.5 mg 05/27/17 17:45 06/03/17 09:56 Eliquis PO 2.5 mg BID [facility] Administration Protocol Benzonatate 200 mg 05/24/17 12:33 05/31/17 13:49 Tessalon Perles PO 200 mg TID PRN Administration Cough Carvedilol 3.125 mg 05/23/17 21:00 06/03/17 09:54 Coreg PO 3.125 mg Q12 [facility] Administration Ferrous Sulfate 325 mg 05/24/17 17:00 06/03/17 09:56 Feosol PO 325 mg BID [facility] Administration Furosemide 40 mg 06/03/17 09:30 06/03/17 09:59 Lasix IVP 40 mg Q12H [facility] Administration Glipizide 10 mg 05/25/17 16:30 06/03/17 07:00 Glucotrol PO Not Given BIDAC [facility] Home Med 1 drop 05/24/17 17:00 06/03/17 09:54 Cyclosporine [Restasis] BOTHEYES 1 drop BID [facility] Administration Home Med 1 drop 05/24/17 17:00 05/29/17 08:31 Dorzolamide 2%/Timolol 0.5% [Cosopt 2%-0.5% Opht] EACHEYE 1 drop BID [facility] Administration Home Med 1 drop 05/24/17 22:00 06/02/17 22:12 Tafluprost/Pf [Zioptan 0.0015% Eye Drops] EACHEYE 1 drop HS [facility] Administration Hydrocortisone 1 applic 05/24/17 17:00 06/03/17 09:52 Anusol-Hc MA 1 applic BID [facility] Administration Cefepime HCl 1 gm/ Dextrose 100 mls @ 100 mls/hr 06/01/17 21:00 06/02/17 21: 00 IVPB 100 mls/hr DAILY@2100 [facility] Administration Clindamycin Phosphate 600 mg/ 54 mls @ 54 mls/hr 06/02/17 12:45 06/03/17 09: 53 Dextrose IVPB 54 mls/hr Q12 [facility] Administration Insulin Detemir 8 units 06/01/17 09:00 06/03/17 09:59 Levemir SC 8 units DAILY [facility] Administration Insulin Human Regular 0 units 05/25/17 16:30 06/03/17 11:34 Humulin R SC Not Given ACHS [facility] Protocol Lactobacillus Acidophilus 1 cap 06/01/17 09:00 06/03/17 09:53 Bacid Acidophilus PO 1 cap BID [facility] Administration Levalbuterol HCl 0.63 mg 05/23/17 21:00 06/03/17 08:00 Xopenex INH 0.63 mg RQ8 [facility] Administration Levalbuterol HCl 0.63 mg 05/24/17 12:40 06/02/17 19:39 Xopenex INH 0.63 mg RQ8 PRN Administration Shortness of Breath Pantoprazole Sodium 40 mg 05/29/17 09:00 06/03/17 10:00 Protonix Ec Tab PO 40 mg DAILY [facility] Administration Sitagliptin Phosphate 50 mg 05/25/17 09:00 06/03/17 09:57 Januvia PO 50 mg DAILY [facility] Administration Spironolactone 50 mg 05/28/17 10:00 06/03/17 09:51 Aldactone PO 50 mg DAILY [facility] Administration - Patient Studies Lab Studies: Microbiology Studies 05/30/17 10:22 Gram Stain - Final Pleural Fluid Body Fluid Culture - Final No growth. 06/02/17 11:04 Urine Culture - Preliminary Urine,Catheterized Gram Positive Cocci Lab Studies 06/03/17 06/03/17 06/03/17 Range/Units 11:21 05:01 04:18 WBC (4.8-10.8) K/uL RBC (3.80-5.20) Mil/uL Hgb (12.0-16.0) g/dL Hct (34.0-47.0) % MCV (81.0-99.0) fl MCH (27.0-31.0) pg MCHC (33.0-37.0) g/dL RDW (11.5-14.5) % Plt Count (130-400) K/uL Sodium (132-148) mmol/l Potassium (3.6-5.0) MMOL/L Chloride (98-107) mmol/L Carbon Dioxide (22-30) mmol/L Anion Gap (10-20) BUN (7-17) mg/dl Creatinine (0.7-1.2) mg/dL Est GFR ( Amer) Est GFR (Non-Af Amer) POC Glucose (mg/dL) 185 H 155 H 155 H (65-110) mg/dL Random Glucose (65-105) mg/dL Calcium (8.4-10.2) mg/dL 06/03/17 06/03/17 06/03/17 Range/Units 04:18 04:10 04:10 WBC 12.5 H (4.8-10.8) K/uL RBC 3.22 L (3.80-5.20) Mil/uL Hgb 10.1 L (12.0-16.0) g/dL Hct 32.6 L (34.0-47.0) % MCV 101.0 H (81.0-99.0) fl MCH 31.4 H (27.0-31.0) pg MCHC 31.1 L (33.0-37.0) g/dL RDW 18.2 H (11.5-14.5) % Plt Count 133 (130-400) K/uL Sodium 147 (132-148) mmol/l Potassium 3.7 (3.6-5.0) MMOL/L Chloride 103 (98-107) mmol/L Carbon Dioxide 38 H (22-30) mmol/L Anion Gap 10 (10-20) BUN 46 H (7-17) mg/dl Creatinine 1.2 (0.7-1.2) mg/dL Est GFR ( Amer) 51 Est GFR (Non-Af Amer) 42 POC Glucose (mg/dL) 155 H (65-110) mg/dL Random Glucose 138 H (65-105) mg/dL Calcium 9.4 (8.4-10.2) mg/dL 06/02/17 06/02/17 06/02/17 Range/Units 22:27 16:01 12:03 WBC (4.8-10.8) K/uL RBC (3.80-5.20) Mil/uL Hgb (12.0-16.0) g/dL Hct (34.0-47.0) % MCV (81.0-99.0) fl MCH (27.0-31.0) pg MCHC (33.0-37.0) g/dL RDW (11.5-14.5) % Plt Count (130-400) K/uL Sodium (132-148) mmol/l Potassium (3.6-5.0) MMOL/L Chloride (98-107) mmol/L Carbon Dioxide (22-30) mmol/L Anion Gap (10-20) BUN (7-17) mg/dl Creatinine (0.7-1.2) mg/dL Est GFR ( Amer) Est GFR (Non-Af Amer) POC Glucose (mg/dL) 208 H 219 H 267 H (65-110) mg/dL Random Glucose (65-105) mg/dL Calcium (8.4-10.2) mg/dL Laboratory Results - last 24 hr 06/02/17 06/02/17 06/02/17 12:03 16:01 22:27 WBC RBC Hgb Hct MCV MCH MCHC RDW Plt Count Sodium Potassium Chloride Carbon Dioxide Anion Gap BUN Creatinine Est GFR ( Amer) Est GFR (Non-Af Amer) POC Glucose (mg/dL) 267 H 219 H 208 H Random Glucose Calcium 06/03/17 06/03/17 06/03/17 04:10 04:10 04:18 WBC 12.5 H RBC 3.22 L Hgb 10.1 L Hct 32.6 L MCV 101.0 H MCH 31.4 H MCHC 31.1 L RDW 18.2 H Plt Count 133 Sodium 147 Potassium 3.7 Chloride 103 Carbon Dioxide 38 H Anion Gap 10 BUN 46 H Creatinine 1.2 Est GFR ( Amer) 51 Est GFR (Non-Af Amer) 42 POC Glucose (mg/dL) 155 H Random Glucose 138 H Calcium 9.4 06/03/17 06/03/17 06/03/17 04:18 05:01 11:21 WBC RBC Hgb Hct MCV MCH MCHC RDW Plt Count Sodium Potassium Chloride Carbon Dioxide Anion Gap BUN Creatinine Est GFR ( Amer) Est GFR (Non-Af Amer) POC Glucose (mg/dL) 155 H 155 H 185 H Random Glucose Calcium Fingerstick Blood Sugar Results: 185 Critical Care Progress Note - Nutrition Nutrition: Nutrition Category Date Time Status Dysphagia/Modified Consistency Diet [DIET] Diets 06/03/17 Breakfast Active Assessment/Plan (1) Acute respiratory failure with hypercapnia Current Visit: Yes Status: Acute Comment: Maxipeme 1 gm IVPB Q Daily Clindamycin 600 mg IV Q 12H added today 06/01 S/p Pleural fluid drainage (2) Cardiomyopathy Current Visit: No Status: Chronic Priority: High Comment: No signs of fluid overload on phtsical exam IV lasix dose reduced to 40 Mg Q12h Dilated CMY with Systolic dysfunction with EF ~ 15%; AICD in place; valvular dysfunction with moderate to severe pulm HTN Cont PO Lasix and Spironolactone Cont Coreg Eliquis 2.5 mg PO BID (3) Coagulopathy Current Visit: No Status: Acute Comment: No evidance of bleeding (4) Pleural effusion Current Visit: No Status: Acute Priority: High Comment: Moderate right pleural effusion. S/p Thoracocentesis on 05/30 700 cc of jackson colored fluid drained (5) Sepsis Current Visit: No Status: Acute Priority: High Comment: Maxipeme 1 gm IVPB Q Daily Cultures NTD (6) Atrial fibrillation with controlled ventricular response Current Visit: No Status: Chronic Priority: Medium Comment: Rate controlled Re-started Eliquis 2.5 mg PO BID Continue Coreg (7) COPD (chronic obstructive pulmonary disease) Current Visit: No Status: Chronic Priority: High Comment: COPD stable - Xopenex via nebulizer q 8hrs PRN - Cont O2 therapy (8) Prophylactic measure Current Visit: Yes Status: Acute Comment: Eliquis 2.5 mg PO BID Pantoprazole 40 mg PO DAILY
[2017-06-03] MEDS: Cefepime 1 GM in Dextrose 5% In Water 100 ML IVPB SCH (20:26)
--- NOTE | 2017-06-03 22:00 | PN ---
ENDOCRINOLOGY FOLLOWUP NOTE LOCATION: In room 421. SUBJECTIVE: This is an 87-year-old female with end-stage congestive heart failure with underlying pulmonary hypertension and also advanced COPD and is now being followed closely for metabolic management. Her glycemic levels are fluctuating, but improved and the latest glucose levels have ranged from 155 to 185 mg/dL. Her latest chemistry shows a BUN of 46, sodium 137, potassium 3.5, chloride 104, CO2 of 38, glucose 180 and creatinine 1.2. So at this time, we will continue the basal insulin given __[id number]___ 8 units subcutaneously once daily in the morning as ordered. We will continue also the dual oral hypoglycemic drug therapy with Januvia given at 50 mg daily and glipizide 10 mg b.i.d. before meals as ordered. We will titrate incrementally as indicated to optimize metabolic control. We will follow and advise accordingly. Lauryn Chandra MD
[2017-06-03] MEDS: TAFLUPROST EACHEYE SCH (22:38)
[2017-06-04] MEDS: Levalbuterol 0.63 MG/3 ML Inhal Soln UD INH SCH ×4 (00:11→23:20)
[2017-06-04 05:13] LABS: HEMATOCRIT 33.9 % (34.0-47.0); MEAN CELL VOLUME 104.7 fl (81.0-99.0); MEAN CORPUSCULAR HEMOGLOBIN 30.7 pg (27.0-31.0); MEAN CORPUSCULAR HGB CONC 29.3 g/dL (33.0-37.0); RED CELL DISTRIBUTION WIDTH 18.6 % (11.5-14.5); WHITE BLOOD COUNT 14.5 K/uL (4.8-10.8)
[2017-06-04 05:25] LABS: CALCIUM 9.3 mg/dL (8.4-10.2)
--- NOTE | 2017-06-04 07:16 | CP.CCUPN ---
CCU Subjective - Physician Review Subjective (Free Text): Again noted to be lying with eyes closed, on HFNC this AM at 40 LPM and 70% oxygen. Intermittently coughs, with weak effort and not expectorating, noted to desaturate to as low s 81% and recovers back to 100% within a minute, otherwise , not distressed, opens eyes to loud name calling, and interactive to son at the bedside. SBP approx. 100, HR 77 paced. No malignant tachyarrhythmic episodes noted on telemetry. Remains on 1:1 observation per family preference. Other vitals and I/O's reviewed. No fever spikes noted, has been more hypothermic than normothermic. I/O's negative 240ml last 24H. ROS: Not obtainable due to limited conversation with patient due to lethargy. No other pertinent negs or positives on 10+ system review. PMSFH: Underwent repeat R thoracentesis last week, had same procedure previously on 05/14 also. All Nursing and physician documentation reviewed to date; no new pertinent info noted relevant to current medical problems. MAJOR PROBLEMS: 1. Acute Hypercapneic Resp Failure 2 Decompensated L-CHF / Cardiomyopathy; r/ oed AMI 2. Chronic A fib on AC 3. Chronic Disease Anemia / Thrombocytopenia 4. Azotemia with oliguria / Hypernatremia PLAN: 1. Overall, no improvement in cardiopulm status since admission to ICU. Has been intermittently placed on BiPAP support from HFNC to help with CO2 ventilation. Oxygen requirements have increased as well. Last CXR obtained yesterday reviewed. Noted RLL collapse noted with mild mediastinal shift. Attempts to improve aeration may be problematic given poor tolerance to chest PT , and deep KOSHER SEALER/OP suctioning attempts. Desaturation occurrences are worrisome during coughing episodes over prolonged recovery back to normo-saturation. Other options limited and non-existent given poor cardiac and pulm reserve. 2. Empiric abx coverage noted. 3. Progressive azotemia noted, does not appear clinically fluid-overloadednor any new increase in anasarca noted. Lasix already reduced back to 40mg dosing schedule. Would consoder holding all diuretics at this point in time. May even need cautious IVF re-hydration to prevent further renal decline. Will discuss with Cardio. Consider nephrology advice. 4. Despite aggressive interventions short of intubation, no significant improvements achievable. Consider changing focus of care to comfort measures only. CCU Objective - Vital Signs / Intake & Output Vital Signs (Last 4 hours): Vital Signs Temp Pulse Resp BP Pulse Ox 06/04/17 06:00 75 24 101/47 L 99 06/04/17 05:00 27 H 06/04/17 04:00 97.1 F L 96 H 25 H 109/57 L 93 L Intake and Output (Last 8hrs): Intake & Output 06/03/17 06/04/17 06/04/17 22:59 06:59 14:59 Intake Total 80 180 Output Total 475 75 Balance -395 105 Intake: IV 60 180 Oral 20 Output: Urine 475 75 Urethral (Mackey) 475 75 - Physical Exam Head: Positive for: Atraumatic, Normocephalic. Negative for: Tenderness, Contusion Pupils: Positive for: PERRL Extroacular Muscles: Positive for: EOMI Conjunctiva: Positive for: Normal. Negative for: Icteric Mouth: Positive for: Moist Mucous Membranes Pharnyx: Positive for: Normal Neck: Positive for: Normal Range of Motion, JVD (prominent venous pulsations naoted). Negative for: Bruit Respiratory/Chest: Positive for: Decreased Breath Sounds, Rhonchi (bilateral), Tachypneic. Negative for: Accessory Muscle Use, Wheezes Cardiovascular: Positive for: Regular Rate and Rhythm (Paced), Murmurs ( systolic murmur), Peripheal Pulses Present. Negative for: Rub Abdomen: Positive for: Normal Bowel Sounds. Negative for: Tenderness, Distention Upper Extremity: Positive for: Edema (mostly LUE) Lower Extremity: Positive for: Edema. Negative for: CALF TENDERNESS, Cyanosis Neurological: Positive for: Speech Normal, Motor Func Grossly Intact, Normal Sensory Function Skin: Positive for: Warm, Pale. Negative for: Rashes Psychiatric: Positive for: Lethargic - Medications Active Medications: Active Medications Generic Name Dose Route Start Last Admin Trade Name Freq PRN Reason Stop Dose Admin Acetaminophen 325 mg 05/24/17 12:33 05/31/17 13:01 Tylenol 325mg Tab PO 325 mg Q6H PRN Administration Headache Acetazolamide 500 mg 05/28/17 09:56 06/03/17 16:11 Diamox 250 Mg Tab PO 500 mg BIDWM [facility] Administration Acetylcysteine 2 ml 06/02/17 20:00 06/03/17 19:25 Mucomyst 10% 4ml IH 2 ml RBID [facility] Administration Allopurinol 100 mg 05/25/17 09:00 06/03/17 10:01 Zyloprim PO 100 mg DAILY [facility] Administration Apixaban 2.5 mg 05/27/17 17:45 06/03/17 16:12 Eliquis PO 2.5 mg BID [facility] Administration Protocol Benzonatate 200 mg 05/24/17 12:33 05/31/17 13:49 Tessalon Perles PO 200 mg TID PRN Administration Cough Carvedilol 3.125 mg 05/23/17 21:00 06/03/17 22:37 Coreg PO 3.125 mg Q12 [facility] Administration Ferrous Sulfate 325 mg 05/24/17 17:00 06/03/17 16:12 Feosol PO 325 mg BID [facility] Administration Furosemide 40 mg 06/03/17 09:30 06/03/17 22:39 Lasix IVP 40 mg Q12H [facility] Administration Glipizide 10 mg 05/25/17 16:30 06/03/17 16:12 Glucotrol PO 10 mg BIDAC [facility] Administration Home Med 1 drop 05/24/17 17:00 06/03/17 16:44 Cyclosporine [Restasis] BOTHEYES 1 drop BID [facility] Administration Home Med 1 drop 05/24/17 17:00 05/29/17 08:31 Dorzolamide 2%/Timolol 0.5% [Cosopt 2%-0.5% Opht] EACHEYE 1 drop BID [facility] Administration Home Med 1 drop 05/24/17 22:00 06/03/17 22:38 Tafluprost/Pf [Zioptan 0.0015% Eye Drops] EACHEYE 1 drop HS [facility] Administration Hydrocortisone 1 applic 05/24/17 17:00 06/03/17 16:09 Anusol-Hc NV 1 applic BID [facility] Administration Cefepime HCl 1 gm/ Dextrose 100 mls @ 100 mls/hr 06/01/17 21:00 06/03/17 20: 26 IVPB 100 mls/hr DAILY@2100 [facility] Administration Clindamycin Phosphate 600 mg/ 54 mls @ 54 mls/hr 06/02/17 12:45 06/03/17 20: 26 Dextrose IVPB 54 mls/hr Q12 [facility] Administration Insulin Detemir 8 units 06/01/17 09:00 06/03/17 09:59 Levemir SC 8 units DAILY [facility] Administration Insulin Human Regular 0 units 05/25/17 16:30 06/03/17 22:40 Humulin R SC Not Given ACHS [facility] Protocol Lactobacillus Acidophilus 1 cap 06/01/17 09:00 06/03/17 16:10 Bacid Acidophilus PO 1 cap BID [facility] Administration Levalbuterol HCl 0.63 mg 05/23/17 21:00 06/04/17 00:11 Xopenex INH 0.63 mg RQ8 [facility] Administration Levalbuterol HCl 0.63 mg 05/24/17 12:40 06/02/17 19:39 Xopenex INH 0.63 mg RQ8 PRN Administration Shortness of Breath Pantoprazole Sodium 40 mg 05/29/17 09:00 06/03/17 10:00 Protonix Ec Tab PO 40 mg DAILY [facility] Administration Sitagliptin Phosphate 50 mg 05/25/17 09:00 06/03/17 09:57 Januvia PO 50 mg DAILY [facility] Administration Spironolactone 50 mg 05/28/17 10:00 06/03/17 09:51 Aldactone PO 50 mg DAILY [facility] Administration - Patient Studies Lab Studies: Microbiology Studies 05/30/17 10:22 Gram Stain - Final Pleural Fluid Body Fluid Culture - Final No growth. 06/02/17 11:04 Urine Culture - Preliminary Urine,Catheterized Gram Positive Cocci Lab Studies 06/04/17 06/04/17 06/04/17 Range/Units 05:29 04:45 04:45 WBC 14.5 H (4.8-10.8) K/uL RBC 3.23 L (3.80-5.20) Mil/uL Hgb 9.9 L (12.0-16.0) g/dL Hct 33.9 L (34.0-47.0) % MCV 104.7 H D (81.0-99.0) fl MCH 30.7 (27.0-31.0) pg MCHC 29.3 L (33.0-37.0) g/dL RDW 18.6 H (11.5-14.5) % Plt Count 145 (130-400) K/uL Sodium 149 H (132-148) mmol/l Potassium 4.0 (3.6-5.0) MMOL/L Chloride 103 (98-107) mmol/L Carbon Dioxide 34 H (22-30) mmol/L Anion Gap 16 (10-20) BUN 63 H (7-17) mg/dl Creatinine 1.8 H (0.7-1.2) mg/dL Est GFR ( Amer) 32 Est GFR (Non-Af Amer) 27 POC Glucose (mg/dL) 166 H (65-110) mg/dL Random Glucose 141 H (65-105) mg/dL Calcium 9.3 (8.4-10.2) mg/dL 06/03/17 06/03/17 06/03/17 Range/Units 21:03 15:36 11:21 WBC (4.8-10.8) K/uL RBC (3.80-5.20) Mil/uL Hgb (12.0-16.0) g/dL Hct (34.0-47.0) % MCV (81.0-99.0) fl MCH (27.0-31.0) pg MCHC (33.0-37.0) g/dL RDW (11.5-14.5) % Plt Count (130-400) K/uL Sodium (132-148) mmol/l Potassium (3.6-5.0) MMOL/L Chloride (98-107) mmol/L Carbon Dioxide (22-30) mmol/L Anion Gap (10-20) BUN (7-17) mg/dl Creatinine (0.7-1.2) mg/dL Est GFR ( Amer) Est GFR (Non-Af Amer) POC Glucose (mg/dL) 175 H 170 H 185 H (65-110) mg/dL Random Glucose (65-105) mg/dL Calcium (8.4-10.2) mg/dL 06/03/17 06/03/17 06/03/17 Range/Units 04:18 04:10 04:10 WBC 12.5 H (4.8-10.8) K/uL RBC 3.22 L (3.80-5.20) Mil/uL Hgb 10.1 L (12.0-16.0) g/dL Hct 32.6 L (34.0-47.0) % MCV 101.0 H (81.0-99.0) fl MCH 31.4 H (27.0-31.0) pg MCHC 31.1 L (33.0-37.0) g/dL RDW 18.2 H (11.5-14.5) % Plt Count 133 (130-400) K/uL Sodium 147 (132-148) mmol/l Potassium 3.7 (3.6-5.0) MMOL/L Chloride 103 (98-107) mmol/L Carbon Dioxide 38 H (22-30) mmol/L Anion Gap 10 (10-20) BUN 46 H (7-17) mg/dl Creatinine 1.2 (0.7-1.2) mg/dL Est GFR ( Amer) 51 Est GFR (Non-Af Amer) 42 POC Glucose (mg/dL) 155 H (65-110) mg/dL Random Glucose 138 H (65-105) mg/dL Calcium 9.4 (8.4-10.2) mg/dL Laboratory Results - last 24 hr 06/03/17 06/03/17 06/03/17 04:10 04:10 04:18 WBC 12.5 H RBC 3.22 L Hgb 10.1 L Hct 32.6 L MCV 101.0 H MCH 31.4 H MCHC 31.1 L RDW 18.2 H Plt Count 133 Sodium 147 Potassium 3.7 Chloride 103 Carbon Dioxide 38 H Anion Gap 10 BUN 46 H Creatinine 1.2 Est GFR ( Amer) 51 Est GFR (Non-Af Amer) 42 POC Glucose (mg/dL) 155 H Random Glucose 138 H Calcium 9.4 06/03/17 06/03/17 06/03/17 11:21 15:36 21:03 WBC RBC Hgb Hct MCV MCH MCHC RDW Plt Count Sodium Potassium Chloride Carbon Dioxide Anion Gap BUN Creatinine Est GFR ( Amer) Est GFR (Non-Af Amer) POC Glucose (mg/dL) 185 H 170 H 175 H Random Glucose Calcium 06/04/17 06/04/17 06/04/17 04:45 04:45 05:29 WBC 14.5 H RBC 3.23 L Hgb 9.9 L Hct 33.9 L MCV 104.7 H D MCH 30.7 MCHC 29.3 L RDW 18.6 H Plt Count 145 Sodium 149 H Potassium 4.0 Chloride 103 Carbon Dioxide 34 H Anion Gap 16 BUN 63 H Creatinine 1.8 H Est GFR ( Amer) 32 Est GFR (Non-Af Amer) 27 POC Glucose (mg/dL) 166 H Random Glucose 141 H Calcium 9.3 Fingerstick Blood Sugar Results: 166 Review of Systems - Review of Systems Systems not reviewed;Unavailable: Altered Mental Status Critical Care Progress Note - Extremities/Vascular Does the Patient have a Central Venous Catheter?: Yes Insertion Site: RUE PICC Does the Patient need a Central Venous Catheter?: Yes Does the Patient need a Mackey Catheter?: Yes Catheter Insertion Criteria: Need for accurate measurement of output in critically ill patient - Prophylaxis GI Prophylaxis GI: PPI - Prophylaxis DVT Prophylaxis DVT: SCDs (and Eliquis.) - Nutrition Nutrition: Nutrition Category Date Time Status Dysphagia/Modified Consistency Diet [DIET] Diets 06/03/17 Breakfast Active
[2017-06-04] MEDS: Acetylcysteine 10% 4 ML IH SCH ×2 (07:36→15:14)
[2017-06-04] MEDS: Hydrocortisone 2.5% (Rectal) CREAM PR SCH ×2 (08:42→16:26)
[2017-06-04] MEDS: Lactobacillus Acidophilus 500 MU Cap PO SCH ×2 (08:43→16:28)
[2017-06-04] MEDS: Patient's Own Med (Cyclosporine [Restasis] 1 DROP) BOTHEYES SCH ×2 (08:45→16:28)
[2017-06-04] MEDS: Insulin Regular 100 units/ml SC SCH ×4 (08:49→23:11)
[2017-06-04] MEDS: Insulin Detemir 100 Units/ml Inj SC SCH (08:50)
[2017-06-04] MEDS: Pantoprazole 40 mg EC Tab PO SCH (08:51)
--- NOTE | 2017-06-04 09:02 | CP.PCM.PN ---
Objective - Vital Signs/Intake and Output Vital Signs (last 24 hours): Temp Pulse Resp BP Pulse Ox 97.6 F 75 19 87/59 L 96 06/04/17 08:00 06/04/17 08:44 06/04/17 08:00 06/04/17 08:44 06/04/17 08:00 Intake and Output: 06/04/17 06/04/17 06:59 18:59 Intake Total 260 50 Output Total 150 Balance 110 50 - Medications Medications: Current Medications Acetaminophen (Tylenol 325mg Tab) 325 mg PO Q6H PRN PRN Reason: Headache Last Admin: 05/31/17 13:01 Dose: 325 mg Acetazolamide (Diamox 250 Mg Tab) 500 mg PO BIDWM [facility] Last Admin: 06/03/17 16:11 Dose: 500 mg Acetylcysteine (Mucomyst 10% 4ml) 2 ml IH RBID [facility] Last Admin: 06/04/17 07:36 Dose: 2 ml Allopurinol (Zyloprim) 100 mg PO DAILY [facility] Last Admin: 06/04/17 08:51 Dose: 100 mg Apixaban (Eliquis) 2.5 mg PO BID [facility] PRN Reason: Protocol Last Admin: 06/04/17 08:48 Dose: 2.5 mg Benzonatate (Tessalon Perles) 200 mg PO TID PRN PRN Reason: Cough Last Admin: 05/31/17 13:49 Dose: 200 mg Carvedilol (Coreg) 3.125 mg PO Q12 [facility] Last Admin: 06/04/17 08:44 Dose: Not Given Ferrous Sulfate (Feosol) 325 mg PO BID [facility] Last Admin: 06/04/17 08:48 Dose: 325 mg Furosemide (Lasix) 40 mg IVP Q12H [facility] Last Admin: 06/03/17 22:39 Dose: 40 mg Glipizide (Glucotrol) 10 mg PO BIDAC [facility] Last Admin: 06/04/17 08:49 Dose: 10 mg Home Med (Cyclosporine [Restasis]) 1 drop BOTHEYES BID [facility] Last Admin: 06/04/17 08:45 Dose: 1 drop Home Med (Dorzolamide 2%/Timolol 0.5% [Cosopt 2%-0.5% Opht]) 1 drop EACHEYE BID [facility] Last Admin: 05/29/17 08:31 Dose: 1 drop Home Med (Tafluprost/Pf [Zioptan 0.0015% Eye Drops]) 1 drop EACHEYE HS [facility] Last Admin: 06/03/17 22:38 Dose: 1 drop Hydrocortisone (Anusol-Hc) 1 applic SD BID [facility] Last Admin: 06/04/17 08:42 Dose: 1 applic Cefepime HCl 1 gm/ Dextrose 100 mls @ 100 mls/hr IVPB DAILY@2100 [facility] Last Admin: 06/03/17 20:26 Dose: 100 mls/hr Clindamycin Phosphate 600 mg/ (Dextrose) 54 mls @ 54 mls/hr IVPB Q12 [facility] Last Admin: 06/04/17 08:43 Dose: 54 mls/hr Insulin Detemir (Levemir) 8 units SC DAILY [facility] Last Admin: 06/04/17 08:50 Dose: 8 units Insulin Human Regular (Humulin R) 0 units SC ACHS [facility] PRN Reason: Protocol Last Admin: 06/04/17 08:49 Dose: Not Given Lactobacillus Acidophilus (Bacid Acidophilus) 1 cap PO BID [facility] Last Admin: 06/04/17 08:43 Dose: 1 cap Levalbuterol HCl (Xopenex) 0.63 mg INH RQ8 [facility] Last Admin: 06/04/17 07:36 Dose: 0.63 mg Levalbuterol HCl (Xopenex) 0.63 mg INH RQ8 PRN PRN Reason: Shortness of Breath Last Admin: 06/02/17 19:39 Dose: 0.63 mg Pantoprazole Sodium (Protonix Ec Tab) 40 mg PO DAILY [facility] Last Admin: 06/04/17 08:51 Dose: 40 mg Sitagliptin Phosphate (Januvia) 50 mg PO DAILY [facility] Last Admin: 06/04/17 08:50 Dose: 50 mg Spironolactone (Aldactone) 50 mg PO DAILY [facility] Last Admin: 06/03/17 09:51 Dose: 50 mg - Labs Labs: 06/04/17 04:45 06/04/17 04:45 PT 16.0 Seconds (9.8-13.1) H 05/28/17 04:55 INR 1.5 (0.9-1.2) H 05/28/17 04:55 APTT 34.3 Seconds (25.6-37.1) 05/28/17 04:55
--- NOTE | 2017-06-04 09:17 | CP.PCM.PN ---
Subjective - Date & Time of Evaluation Date of Evaluation: 06/04/17 Time of Evaluation: 08:15 - Subjective Subjective: Exhausted, responds sluggishly to loud calling and shaking with feeble nodding, barely opens eyes Afebrile, has needed increasing levels of FiO2 to keep pulse ox up On "HiFlow" O2 supplement ( FiO2 at 70% with Pulse ox hovering around 92-94%) VVI paced rhythm at 70 BPM BP 86/60 mm Hg Chest x-ray noted Labs show worsening pre renal azotemia with Na+ 149 mEq/L GFR has dropped to 27ml/min Have witheld diuretics and started on IV 5% D/W Discussed with Drs. Mcmahan and Jeremias. Pt's clinical course over last 10 days shows an inexorable progression of cardpulm deterioration after years of dysfunction Have spoken with family members of shifting care to "comfort care" only DNR in place and AICD has been diabled to that end. Objective - Vital Signs/Intake and Output Vital Signs (last 24 hours): Temp Pulse Resp BP Pulse Ox 97.6 F 75 19 87/59 L 96 06/04/17 08:00 06/04/17 08:44 06/04/17 08:00 06/04/17 08:44 06/04/17 08:00 Intake and Output: 06/04/17 06/04/17 06:59 18:59 Intake Total 260 50 Output Total 150 Balance 110 50 - Medications Medications: Current Medications Acetaminophen (Tylenol 325mg Tab) 325 mg PO Q6H PRN PRN Reason: Headache Last Admin: 05/31/17 13:01 Dose: 325 mg Acetazolamide (Diamox 250 Mg Tab) 500 mg PO BIDWM [facility] Last Admin: 06/03/17 16:11 Dose: 500 mg Acetylcysteine (Mucomyst 10% 4ml) 2 ml IH RBID [facility] Last Admin: 06/04/17 07:36 Dose: 2 ml Allopurinol (Zyloprim) 100 mg PO DAILY [facility] Last Admin: 06/04/17 08:51 Dose: 100 mg Apixaban (Eliquis) 2.5 mg PO BID [facility] PRN Reason: Protocol Last Admin: 06/04/17 08:48 Dose: 2.5 mg Benzonatate (Tessalon Perles) 200 mg PO TID PRN PRN Reason: Cough Last Admin: 05/31/17 13:49 Dose: 200 mg Carvedilol (Coreg) 3.125 mg PO Q12 [facility] Last Admin: 06/04/17 08:44 Dose: Not Given Ferrous Sulfate (Feosol) 325 mg PO BID [facility] Last Admin: 06/04/17 08:48 Dose: 325 mg Glipizide (Glucotrol) 10 mg PO BIDAC [facility] Last Admin: 06/04/17 08:49 Dose: 10 mg Home Med (Cyclosporine [Restasis]) 1 drop BOTHEYES BID [facility] Last Admin: 06/04/17 08:45 Dose: 1 drop Home Med (Dorzolamide 2%/Timolol 0.5% [Cosopt 2%-0.5% Opht]) 1 drop EACHEYE BID [facility] Last Admin: 05/29/17 08:31 Dose: 1 drop Home Med (Tafluprost/Pf [Zioptan 0.0015% Eye Drops]) 1 drop EACHEYE HS [facility] Last Admin: 06/03/17 22:38 Dose: 1 drop Hydrocortisone (Anusol-Hc) 1 applic PA BID [facility] Last Admin: 06/04/17 08:42 Dose: 1 applic Cefepime HCl 1 gm/ Dextrose 100 mls @ 100 mls/hr IVPB DAILY@2100 [facility] Last Admin: 06/03/17 20:26 Dose: 100 mls/hr Clindamycin Phosphate 600 mg/ (Dextrose) 54 mls @ 54 mls/hr IVPB Q12 [facility] Last Admin: 06/04/17 08:43 Dose: 54 mls/hr Dextrose (Dextrose 5% In Water 1000 Ml) 1,000 mls @ 50 mls/hr IV .Q20H [facility] Stop: 06/05/17 09:04 Insulin Detemir (Levemir) 8 units SC DAILY [facility] Last Admin: 06/04/17 08:50 Dose: 8 units Insulin Human Regular (Humulin R) 0 units SC ACHS [facility] PRN Reason: Protocol Last Admin: 06/04/17 08:49 Dose: Not Given Lactobacillus Acidophilus (Bacid Acidophilus) 1 cap PO BID [facility] Last Admin: 06/04/17 08:43 Dose: 1 cap Levalbuterol HCl (Xopenex) 0.63 mg INH RQ8 [facility] Last Admin: 06/04/17 07:36 Dose: 0.63 mg Levalbuterol HCl (Xopenex) 0.63 mg INH RQ8 PRN PRN Reason: Shortness of Breath Last Admin: 06/02/17 19:39 Dose: 0.63 mg Pantoprazole Sodium (Protonix Ec Tab) 40 mg PO DAILY [facility] Last Admin: 06/04/17 08:51 Dose: 40 mg Sitagliptin Phosphate (Januvia) 50 mg PO DAILY [facility] Last Admin: 06/04/17 08:50 Dose: 50 mg - Labs Labs: 06/04/17 04:45 06/04/17 04:45 PT 16.0 Seconds (9.8-13.1) H 05/28/17 04:55 INR 1.5 (0.9-1.2) H 05/28/17 04:55 APTT 34.3 Seconds (25.6-37.1) 05/28/17 04:55
--- NOTE | 2017-06-04 09:50 | CP.PCM.PN ---
Subjective - Date & Time of Evaluation Date of Evaluation: 06/04/17 Time of Evaluation: 09:47 - Subjective Subjective: Seen on morning rounds. Case discussed with boiler helper and hoisting engine operator. Son at the bedside during exam. Very lethargic, barely responsive to loud commands. AM labs noted. Yesterday's CXR noted; picture is one of bilateral lower lobe atelectasis. No dependant edema or peripheral cyanosis. Maintains SPO2 95% on HFNC at 40L and 70% O2. No dullness on percussion of the anterior chest wall. No subcut emphysema. Breath sounds are diminished bilaterally and absent in the bases posteriorly. No audible wheezing, tidal volume is low and no rales or rhonchi are heard today. She does not take a deep breath on command this AM. Paced rhythm on monitor. Agree with cardiology assessment, comfort measures are most appropriate. Any aggressive interventions at this point likely to have deleterious effect. Objective - Vital Signs/Intake and Output Vital Signs (last 24 hours): Temp Pulse Resp BP Pulse Ox 97.6 F 75 19 87/59 L 96 06/04/17 08:00 06/04/17 08:44 06/04/17 08:00 06/04/17 08:44 06/04/17 08:00 Intake and Output: 06/03/17 06/04/17 23:59 11:59 Intake Total 80 230 Output Total 475 75 Balance -395 155 - Medications Medications: Current Medications Acetaminophen (Tylenol 325mg Tab) 325 mg PO Q6H PRN PRN Reason: Headache Last Admin: 05/31/17 13:01 Dose: 325 mg Acetazolamide (Diamox 250 Mg Tab) 500 mg PO BIDWM [facility] Last Admin: 06/03/17 16:11 Dose: 500 mg Acetylcysteine (Mucomyst 10% 4ml) 2 ml IH RBID [facility] Last Admin: 06/04/17 07:36 Dose: 2 ml Allopurinol (Zyloprim) 100 mg PO DAILY [facility] Last Admin: 06/04/17 08:51 Dose: 100 mg Apixaban (Eliquis) 2.5 mg PO BID [facility] PRN Reason: Protocol Last Admin: 06/04/17 08:48 Dose: 2.5 mg Benzonatate (Tessalon Perles) 200 mg PO TID PRN PRN Reason: Cough Last Admin: 05/31/17 13:49 Dose: 200 mg Carvedilol (Coreg) 3.125 mg PO Q12 [facility] Last Admin: 06/04/17 08:44 Dose: Not Given Ferrous Sulfate (Feosol) 325 mg PO BID [facility] Last Admin: 06/04/17 08:48 Dose: 325 mg Glipizide (Glucotrol) 10 mg PO BIDAC [facility] Last Admin: 06/04/17 08:49 Dose: 10 mg Home Med (Cyclosporine [Restasis]) 1 drop BOTHEYES BID [facility] Last Admin: 06/04/17 08:45 Dose: 1 drop Home Med (Dorzolamide 2%/Timolol 0.5% [Cosopt 2%-0.5% Opht]) 1 drop EACHEYE BID [facility] Last Admin: 05/29/17 08:31 Dose: 1 drop Home Med (Tafluprost/Pf [Zioptan 0.0015% Eye Drops]) 1 drop EACHEYE HS [facility] Last Admin: 06/03/17 22:38 Dose: 1 drop Hydrocortisone (Anusol-Hc) 1 applic [place] BID [facility] Last Admin: 06/04/17 08:42 Dose: 1 applic Cefepime HCl 1 gm/ Dextrose 100 mls @ 100 mls/hr IVPB DAILY@2100 [facility] Last Admin: 06/03/17 20:26 Dose: 100 mls/hr Clindamycin Phosphate 600 mg/ (Dextrose) 54 mls @ 54 mls/hr IVPB Q12 [facility] Last Admin: 06/04/17 08:43 Dose: 54 mls/hr Dextrose (Dextrose 5% In Water 1000 Ml) 1,000 mls @ 50 mls/hr IV .Q20H [facility] Stop: 06/05/17 09:04 Insulin Detemir (Levemir) 8 units SC DAILY [facility] Last Admin: 06/04/17 08:50 Dose: 8 units Insulin Human Regular (Humulin R) 0 units SC ACHS [facility] PRN Reason: Protocol Last Admin: 06/04/17 08:49 Dose: Not Given Lactobacillus Acidophilus (Bacid Acidophilus) 1 cap PO BID [facility] Last Admin: 06/04/17 08:43 Dose: 1 cap Levalbuterol HCl (Xopenex) 0.63 mg INH RQ8 [facility] Last Admin: 06/04/17 07:36 Dose: 0.63 mg Levalbuterol HCl (Xopenex) 0.63 mg INH RQ8 PRN PRN Reason: Shortness of Breath Last Admin: 06/02/17 19:39 Dose: 0.63 mg Morphine Sulfate (Morphine) 1 mg IVP Q4 PRN PRN Reason: Agitation Pantoprazole Sodium (Protonix Ec Tab) 40 mg PO DAILY [facility] Last Admin: 06/04/17 08:51 Dose: 40 mg Sitagliptin Phosphate (Januvia) 50 mg PO DAILY [facility] Last Admin: 06/04/17 08:50 Dose: 50 mg - Labs Labs: 06/04/17 04:45 06/04/17 04:45 PT 16.0 Seconds (9.8-13.1) H 05/28/17 04:55 INR 1.5 (0.9-1.2) H 05/28/17 04:55 APTT 34.3 Seconds (25.6-37.1) 05/28/17 04:55 Assessment and Plan (1) Chronic respiratory failure with hypoxia and hypercapnia Status: Chronic (2) CHF (congestive heart failure) Status: Chronic (3) COPD (chronic obstructive pulmonary disease) Status: Chronic (4) Pulmonary hypertension Status: Chronic
--- NOTE | 2017-06-04 15:57 | CP.PCM.PN ---
Subjective - Date & Time of Evaluation Date of Evaluation: 06/04/17 Time of Evaluation: 15:55 - Subjective Subjective: I D NOTE WBC:14.5 URINE CULTURE:ENTEROCOCCUS FAECALIS HAVE D/GRACIELA MAXIPEME STARTED ZOSYN 2.250GM IV Q12H IN 100CC D5W Objective - Vital Signs/Intake and Output Vital Signs (last 24 hours): Temp Pulse Resp BP Pulse Ox 96.4 F L 78 22 112/86 97 06/04/17 12:00 06/04/17 12:00 06/04/17 12:00 06/04/17 12:00 06/04/17 12:00 Intake and Output: 06/04/17 06/04/17 06:59 18:59 Intake Total 260 50 Output Total 150 Balance 110 50 - Medications Medications: Current Medications Acetaminophen (Tylenol 325mg Tab) 325 mg PO Q6H PRN PRN Reason: Headache Last Admin: 06/04/17 12:13 Dose: 325 mg Acetazolamide (Diamox 250 Mg Tab) 500 mg PO BIDWM [facility] Last Admin: 06/04/17 11:28 Dose: 500 mg Acetylcysteine (Mucomyst 10% 4ml) 2 ml IH RBID [facility] Last Admin: 06/04/17 15:14 Dose: 2 ml Allopurinol (Zyloprim) 100 mg PO DAILY [facility] Last Admin: 06/04/17 08:51 Dose: 100 mg Apixaban (Eliquis) 2.5 mg PO BID [facility] PRN Reason: Protocol Last Admin: 06/04/17 08:48 Dose: 2.5 mg Benzonatate (Tessalon Perles) 200 mg PO TID PRN PRN Reason: Cough Last Admin: 05/31/17 13:49 Dose: 200 mg Carvedilol (Coreg) 3.125 mg PO Q12 [facility] Last Admin: 06/04/17 08:44 Dose: Not Given Ferrous Sulfate (Feosol) 325 mg PO BID [facility] Last Admin: 06/04/17 08:48 Dose: 325 mg Glipizide (Glucotrol) 10 mg PO BIDAC [facility] Last Admin: 06/04/17 08:49 Dose: 10 mg Home Med (Cyclosporine [Restasis]) 1 drop BOTHEYES BID [facility] Last Admin: 06/04/17 08:45 Dose: 1 drop Home Med (Dorzolamide 2%/Timolol 0.5% [Cosopt 2%-0.5% Opht]) 1 drop EACHEYE BID [facility] Last Admin: 05/29/17 08:31 Dose: 1 drop Home Med (Tafluprost/Pf [Zioptan 0.0015% Eye Drops]) 1 drop EACHEYE HS [facility] Last Admin: 06/03/17 22:38 Dose: 1 drop Hydrocortisone (Anusol-Hc) 1 applic IA BID [facility] Last Admin: 06/04/17 08:42 Dose: 1 applic Clindamycin Phosphate 600 mg/ (Dextrose) 54 mls @ 54 mls/hr IVPB Q12 [facility] Last Admin: 06/04/17 08:43 Dose: 54 mls/hr Dextrose (Dextrose 5% In Water 1000 Ml) 1,000 mls @ 50 mls/hr IV .Q20H [facility] Stop: 06/05/17 09:04 Last Admin: 06/04/17 11:29 Dose: 50 mls/hr Piperacillin Sod/Tazobactam (Sod 2.25 gm/ Sodium Chloride) 100 mls @ 100 mls/ hr IVPB Q12 [facility] Piperacillin Sod/Tazobactam Sod (Zosyn 2.25 Gm Iv Premix) 2.25 gm in 50 mls @ 50 mls/hr IVPB Q12H [facility] Insulin Detemir (Levemir) 8 units SC DAILY [facility] Last Admin: 06/04/17 08:50 Dose: 8 units Insulin Human Regular (Humulin R) 0 units SC ACHS [facility] PRN Reason: Protocol Last Admin: 06/04/17 11:30 Dose: Not Given Lactobacillus Acidophilus (Bacid Acidophilus) 1 cap PO BID [facility] Last Admin: 06/04/17 08:43 Dose: 1 cap Levalbuterol HCl (Xopenex) 0.63 mg INH RQ8 [facility] Last Admin: 06/04/17 15:14 Dose: 0.63 mg Levalbuterol HCl (Xopenex) 0.63 mg INH RQ8 PRN PRN Reason: Shortness of Breath Last Admin: 06/02/17 19:39 Dose: 0.63 mg Morphine Sulfate (Morphine) 1 mg IVP Q4 PRN PRN Reason: Agitation Pantoprazole Sodium (Protonix Ec Tab) 40 mg PO DAILY [facility] Last Admin: 06/04/17 08:51 Dose: 40 mg Sitagliptin Phosphate (Januvia) 50 mg PO DAILY [facility] Last Admin: 06/04/17 08:50 Dose: 50 mg - Labs Labs: 06/04/17 04:45 06/04/17 04:45 PT 16.0 Seconds (9.8-13.1) H 05/28/17 04:55 INR 1.5 (0.9-1.2) H 05/28/17 04:55 APTT 34.3 Seconds (25.6-37.1) 05/28/17 04:55
[2017-06-04] MEDS ORDERED: Piperacill/Tazo 2.25gm in Dex 2.25 GM/50 ML BAG IVPB SCH (16:00)
[2017-06-04] MEDS: Piperacill/Tazo 2.25gm in Dex 2.25 GM/50 ML BAG IVPB SCH (16:37)
--- NOTE | 2017-06-04 17:14 | PN ---
DATE: ENDOCRINOLOGY FOLLOWUP NOTE LOCATION: Room 421, ICU. SUBJECTIVE: This is an 87-year-old female with recent uncontrolled type 2 insulin-requiring diabetes with advanced COPD and concomitant congestive heart failure with very, very low ejection fraction at this time and is now being followed closely for metabolic management. Her glycemic levels are fluctuating, but much improved at this time and the latest glucose levels are ranging from 166-214 mg/dL. It was 117-175 last night as noted. The latest chemistry showed a BUN of 63, sodium 149, potassium 4.0, chloride 103, CO2 of 34, glucose 141, and creatinine 1.8. So at this time, we will continue the low-dose basal insulin given as Levemir at 8 units subcutaneous daily at 10 a.m. as ordered. We will also continue the dual oral hypoglycemic drug therapy with Januvia given as 50 mg daily and glipizide given as 10 mg b.i.d. before meals as ordered. We will titrate incrementally as indicated to optimize metabolic control. We will follow and advise accordingly. Lauryn Chandra MD
[2017-06-04] MEDS: TAFLUPROST EACHEYE SCH (22:30)
[2017-06-05] MEDS: Piperacill/Tazo 2.25gm in Dex 2.25 GM/50 ML BAG IVPB SCH ×2 (04:00→16:10)
[2017-06-05] MEDS ORDERED: Sodium Chloride 0.9% 500 ML IV ONE ×2 (05:06→06:50)
[2017-06-05 06:26] LABS: HEMATOCRIT 33.9 % (34.0-47.0); MEAN CELL VOLUME 106.6 fl (81.0-99.0); MEAN CORPUSCULAR HEMOGLOBIN 30.9 pg (27.0-31.0); RED CELL DISTRIBUTION WIDTH 18.8 % (11.5-14.5); WHITE BLOOD COUNT 11.1 K/uL (4.8-10.8)
[2017-06-05 06:41] LABS: BILIRUBIN,TOTAL 0.6 mg/dl (0.2-1.3); CALCIUM 8.9 mg/dL (8.4-10.2); POTASSIUM 4.1 MMOL/L (3.6-5.0)
[2017-06-05 06:46] LABS: ALB/GLOB RATIO 0.9 (1.0-2.1)
--- NOTE | 2017-06-05 07:00 | CP.CCUPN ---
CCU Subjective - Physician Review Subjective (Free Text): Just started on Levophed for BP maintenance after unresponsiveness to fluid challenge. Additional (2nd) fluid challenge with 500ml NSS infusing now. Coreg and Lasix have been held. Overall appearance of patient unchanged from yesterdays assessment; no appreciable improvement in neuromental status. After discussion with involved family members yesterday, have decided to try chest vibropercussion to help improve R basilar atelectasis. After approx. 5 minutes of manual chest percussion especially to RLL area posteriorly, patient nodded head yes that she felt good and affirmed with head movements that she was not in pain. Intermittent cough persists and she remains unable to expectorate any secretions. Family members continue to assist in feeding her PO as tolerated and discussed precautions to minimize any risk of aspiration. Stable SBP trends noted, at approx. 100, HR 70s and paced, some PVCs noted. No malignant tachyarrhythmic episodes noted. Remains on 1:1 observation per family preference. Other vitals and I/O's reviewed. No fever spikes noted. I/O's in mild positive balance last 24H. remains on D5W, reduced from 100ml/hr to 50 ml/hr. ROS: Not obtainable due to limited conversation with patient due to lethargy. No other pertinent negs or positives on 10+ system review. PMSFH: Underwent repeat R thoracentesis last week, had same procedure previously on 05/14 also. All Nursing and physician documentation reviewed to date; no new pertinent info noted relevant to current medical problems. MAJOR PROBLEMS: 1. Acute Hypercapneic Resp Failure 2 Decompensated L-CHF / Cardiomyopathy; r/ oed AMI 2. Chronic A fib on AC 3. Chronic Disease Anemia / Thrombocytopenia 4. Azotemia with oliguria / Hypernatremia PLAN: 1. Will discuss with Cardio: re- continuation of Levophed? versus just fluid / colloid boluses and no other resuscitative vasoactive meds. Today's bloodwork reflects worsening renal function despite overnight IVF re-hydration. Expect these values to worsen as she remains on vasopressors. 2. Pulm Sport bed ordered to continue with chest vibropercussion therapy as tolerated. Oxygen therapy changed to 1005 humidified NRBM in hope to provide more humidification since she breathes partly with mouth open. Today's repeat CXR is essentially unchanged with RLL atelectasis, no other gross consolidation seen. 3. Changes in abx coverage noted to now cover for E. faecalis found in urine. Discussed possibility to discontinue Mackey catheter with Dr. Chaparro. 4. Other invasive options such as short-term 2 day intubation; or bronchoscopy; ENT eval for inability to pass nasopharyngeal/tracheal suction catheters as mentioned by Dr. Gomez were discussed and were deemed not feasible with extremely limited cardiac and pulm reserve; and would cause more undue patient discomfort than benefit; and would not overly impact nor extend patients life expectancy. 5. Re-confirmed DNI and DNR orders with all involved members of the family. Son Florentin is now primary spokesperson. Consideration discussed with changing focus of care to comfort measures only, but no family consensus decision could be made at this time. CCU Objective - Vital Signs / Intake & Output Intake and Output (Last 8hrs): Intake & Output 06/04/17 06/04/17 06/05/17 14:59 22:59 06:59 Intake Total 50 560 204 Output Total 200 Balance 50 360 204 Intake: IV 450 204 Intake, Piggyback 50 100 Oral 10 Output: Urine 200 Urethral (Mackey) 200 - Physical Exam Head: Positive for: Atraumatic, Normocephalic. Negative for: Tenderness, Contusion Pupils: Positive for: PERRL Extroacular Muscles: Positive for: EOMI Conjunctiva: Positive for: Normal. Negative for: Icteric Mouth: Positive for: Moist Mucous Membranes Pharnyx: Positive for: Normal Neck: Positive for: Normal Range of Motion, JVD (prominent venous pulsations naoted). Negative for: Bruit Respiratory/Chest: Positive for: Decreased Breath Sounds, Rhonchi (bilateral), Tachypneic. Negative for: Accessory Muscle Use, Wheezes Cardiovascular: Positive for: Regular Rate and Rhythm (Paced), Murmurs ( systolic murmur), Peripheal Pulses Present. Negative for: Rub Abdomen: Positive for: Normal Bowel Sounds. Negative for: Tenderness, Distention Upper Extremity: Positive for: Edema (mostly LUE) Lower Extremity: Positive for: Edema. Negative for: CALF TENDERNESS, Cyanosis Neurological: Positive for: Speech Normal, Motor Func Grossly Intact, Normal Sensory Function Skin: Positive for: Warm, Pale. Negative for: Rashes Psychiatric: Positive for: Lethargic - Medications Active Medications: Active Medications Generic Name Dose Route Start Last Admin Trade Name Freq PRN Reason Stop Dose Admin Acetaminophen 325 mg 05/24/17 12:33 06/04/17 12:13 Tylenol 325mg Tab PO 325 mg Q6H PRN Administration Headache Acetazolamide 500 mg 05/28/17 09:56 06/04/17 16:29 Diamox 250 Mg Tab PO 500 mg BIDWM [facility] Administration Acetylcysteine 2 ml 06/02/17 20:00 06/04/17 15:14 Mucomyst 10% 4ml IH 2 ml RBID [facility] Administration Allopurinol 100 mg 05/25/17 09:00 06/04/17 08:51 Zyloprim PO 100 mg DAILY [facility] Administration Apixaban 2.5 mg 05/27/17 17:45 06/04/17 16:29 Eliquis PO 2.5 mg BID [facility] Administration Protocol Benzonatate 200 mg 05/24/17 12:33 05/31/17 13:49 Tessalon Perles PO 200 mg TID PRN Administration Cough Carvedilol 3.125 mg 05/23/17 21:00 06/04/17 20:35 Coreg PO Not Given Q12 [facility] Ferrous Sulfate 325 mg 05/24/17 17:00 06/04/17 16:29 Feosol PO 325 mg BID [facility] Administration Glipizide 10 mg 05/25/17 16:30 06/04/17 16:30 Glucotrol PO 10 mg BIDAC [facility] Administration Home Med 1 drop 05/24/17 17:00 06/04/17 16:28 Cyclosporine [Restasis] BOTHEYES 1 drop BID [facility] Administration Home Med 1 drop 05/24/17 17:00 05/29/17 08:31 Dorzolamide 2%/Timolol 0.5% [Cosopt 2%-0.5% Opht] EACHEYE 1 drop BID [facility] Administration Home Med 1 drop 05/24/17 22:00 06/04/17 22:30 Tafluprost/Pf [Zioptan 0.0015% Eye Drops] EACHEYE 1 drop HS [facility] Administration Hydrocortisone 1 applic 05/24/17 17:00 06/04/17 16:26 Anusol-Hc TN 1 applic BID [facility] Administration Clindamycin Phosphate 600 mg/ 54 mls @ 54 mls/hr 06/02/17 12:45 06/04/17 20: 37 Dextrose IVPB 54 mls/hr Q12 [facility] Administration Dextrose 1,000 mls @ 50 mls/hr 06/04/17 09:15 06/05/17 06:27 Dextrose 5% In Water 1000 Ml IV 06/05/17 09:04 50 mls/hr .Q20H [facility] Administration Piperacillin Sod/Tazobactam Sod 2.25 gm in 50 mls @ 50 mls/hr 06/04/17 16:00 06/05/17 04:00 Zosyn 2.25 Gm Iv Premix IVPB 50 mls/hr Q12H [facility] Administration Norepinephrine Bitartrate 4 mg 254 mls @ 9.52 mls/hr 06/05/17 06:19 06/05/17 06:42 / Dextrose IV 06/06/17 06:10 5 mcg/min .Q24H ONE 19.05 mls/hr Protocol Titration 2.5 MCG/MIN Insulin Detemir 8 units 06/01/17 09:00 06/04/17 08:50 Levemir SC 8 units DAILY [facility] Administration Insulin Human Regular 0 units 05/25/17 16:30 06/04/17 23:11 Humulin R SC Not Given ACHS [facility] Protocol Lactobacillus Acidophilus 1 cap 06/01/17 09:00 06/04/17 16:28 Bacid Acidophilus PO 1 cap BID [facility] Administration Levalbuterol HCl 0.63 mg 05/23/17 21:00 06/04/17 23:20 Xopenex INH 0.63 mg RQ8 [facility] Administration Levalbuterol HCl 0.63 mg 05/24/17 12:40 06/02/17 19:39 Xopenex INH 0.63 mg RQ8 PRN Administration Shortness of Breath Morphine Sulfate 1 mg 06/04/17 09:46 Morphine IVP Q4 PRN Agitation Pantoprazole Sodium 40 mg 05/29/17 09:00 06/04/17 08:51 Protonix Ec Tab PO 40 mg DAILY [facility] Administration Sitagliptin Phosphate 50 mg 05/25/17 09:00 06/04/17 08:50 Januvia PO 50 mg DAILY [facility] Administration - Patient Studies Lab Studies: Microbiology Studies 06/02/17 11:04 Urine Culture - Final Urine,Catheterized Enterococcus Faecalis Lab Studies 06/05/17 06/05/17 06/04/17 Range/Units 05:48 05:00 22:22 WBC 11.1 H (4.8-10.8) K/uL RBC 3.18 L (3.80-5.20) Mil/uL Hgb 9.8 L (12.0-16.0) g/dL Hct 33.9 L (34.0-47.0) % MCV 106.6 H (81.0-99.0) fl MCH 30.9 (27.0-31.0) pg MCHC 29.0 L (33.0-37.0) g/dL RDW 18.8 H (11.5-14.5) % Plt Count 144 (130-400) K/uL POC Glucose (mg/dL) 219 H 210 H (65-110) mg/dL Fluid Albumin g/dL 06/04/17 06/04/17 05/30/17 Range/Units 15:49 11:30 10:22 WBC (4.8-10.8) K/uL RBC (3.80-5.20) Mil/uL Hgb (12.0-16.0) g/dL Hct (34.0-47.0) % MCV (81.0-99.0) fl MCH (27.0-31.0) pg MCHC (33.0-37.0) g/dL RDW (11.5-14.5) % Plt Count (130-400) K/uL POC Glucose (mg/dL) 195 H 214 H (65-110) mg/dL Fluid Albumin 1.2 g/dL Laboratory Results - last 24 hr 05/30/17 06/04/17 06/04/17 10:22 11:30 15:49 WBC RBC Hgb Hct MCV MCH MCHC RDW Plt Count POC Glucose (mg/dL) 214 H 195 H Fluid Albumin 1.2 06/04/17 06/05/17 06/05/17 22:22 05:00 05:48 WBC 11.1 H RBC 3.18 L Hgb 9.8 L Hct 33.9 L MCV 106.6 H MCH 30.9 MCHC 29.0 L RDW 18.8 H Plt Count 144 POC Glucose (mg/dL) 210 H 219 H Fluid Albumin Radiology Interpretations (Free Text): CXR ( my interp)- compared to 06/03 study, is essentially unchanged with RLL atelectasis, no other gross consolidation seen. Fingerstick Blood Sugar Results: 210 Review of Systems - Review of Systems Systems not reviewed;Unavailable: Altered Mental Status Critical Care Progress Note - Prophylaxis GI Prophylaxis GI: PPI - Prophylaxis DVT Prophylaxis DVT: SCDs - Nutrition Nutrition: Nutrition Category Date Time Status Dysphagia/Modified Consistency Diet [DIET] Diets 06/03/17 Breakfast Active
[2017-06-05] MEDS: Acetylcysteine 10% 4 ML IH SCH ×2 (07:16→19:34)
[2017-06-05] MEDS: Levalbuterol 0.63 MG/3 ML Inhal Soln UD INH SCH ×3 (07:16→23:54)
[2017-06-05] MEDS: Insulin Regular 100 units/ml SC SCH ×4 (07:25→21:53)
[2017-06-05] MEDS: Hydrocortisone 2.5% (Rectal) CREAM PR SCH ×2 (08:13→16:07)
--- NOTE | 2017-06-05 08:13 | CP.PCM.PN ---
Subjective - Date & Time of Evaluation Date of Evaluation: 06/05/17 Time of Evaluation: 08:00 - Subjective Subjective: Barely responds to loud calling Coughs feebly, too feeble to expectorate Has Maurice-Malcolm breathing with pulse Ox fluctuating accordingly between 88 and 91% On ventimask at 35% FiO2 On IV pressors, BP 90/60 mm Hg Paced rhythm Scanty urine out put Labs show worsening azotemia ( Inspite of Diuretics being D/Joe and IV fluids) Na+ has normalised Spoke with son, explained meaning of these observation Prognosis is poor Objective - Vital Signs/Intake and Output Vital Signs (last 24 hours): Temp Pulse Resp BP Pulse Ox 96.7 F L 78 17 80/43 L 100 06/05/17 06:00 06/05/17 06:00 06/05/17 06:00 06/05/17 06:00 06/05/17 06:00 Intake and Output: 06/05/17 06/05/17 06:59 18:59 Intake Total 364 Balance 364 - Medications Medications: Current Medications Acetaminophen (Tylenol 325mg Tab) 325 mg PO Q6H PRN PRN Reason: Headache Last Admin: 06/04/17 12:13 Dose: 325 mg Acetazolamide (Diamox 250 Mg Tab) 500 mg PO BIDWM [facility] [place] Last Admin: 06/04/17 16:29 Dose: 500 mg Acetylcysteine (Mucomyst 10% 4ml) 2 ml IH RBID [facility] Last Admin: 06/05/17 07:16 Dose: 2 ml Allopurinol (Zyloprim) 100 mg PO DAILY [facility] Last Admin: 06/04/17 08:51 Dose: 100 mg Apixaban (Eliquis) 2.5 mg PO BID [facility] [place] PRN Reason: Protocol Last Admin: 06/04/17 16:29 Dose: 2.5 mg Benzonatate (Tessalon Perles) 200 mg PO TID PRN PRN Reason: Cough Last Admin: 05/31/17 13:49 Dose: 200 mg Carvedilol (Coreg) 3.125 mg PO Q12 [facility] Last Admin: 06/04/17 20:35 Dose: Not Given Ferrous Sulfate (Feosol) 325 mg PO BID [facility] Last Admin: 06/04/17 16:29 Dose: 325 mg Glipizide (Glucotrol) 10 mg PO BIDAC [facility] [place] Last Admin: 06/04/17 16:30 Dose: 10 mg Home Med (Cyclosporine [Restasis]) 1 drop BOTHEYES BID [facility] [place] [place] Last Admin: 06/04/17 16:28 Dose: 1 drop Home Med (Dorzolamide 2%/Timolol 0.5% [Cosopt 2%-0.5% Opht]) 1 drop EACHEYE BID [facility] [place] Last Admin: 05/29/17 08:31 Dose: 1 drop Home Med (Tafluprost/Pf [Zioptan 0.0015% Eye Drops]) 1 drop EACHEYE HS [facility] [place] Last Admin: 06/04/17 22:30 Dose: 1 drop Hydrocortisone (Anusol-Hc) 1 applic [place] BID [facility] [place] Last Admin: 06/04/17 16:26 Dose: 1 applic Clindamycin Phosphate 600 mg/ (Dextrose) 54 mls @ 54 mls/hr IVPB Q12 [facility] [place] Last Admin: 06/04/17 20:37 Dose: 54 mls/hr Piperacillin Sod/Tazobactam Sod (Zosyn 2.25 Gm Iv Premix) 2.25 gm in 50 mls @ 50 mls/hr IVPB Q12H [facility] Last Admin: 06/05/17 04:00 Dose: 50 mls/hr Norepinephrine Bitartrate 4 mg (/ Dextrose) 254 mls @ 9.52 mls/hr IV .Q24H [facility] ; 2.5 MCG/MIN PRN Reason: Protocol Stop: 06/06/17 06:10 Last Titration: 06/05/17 06:42 Dose: 5 mcg/min, 19.05 mls/hr Insulin Detemir (Levemir) 8 units SC DAILY [facility] [place] Last Admin: 06/04/17 08:50 Dose: 8 units Insulin Human Regular (Humulin R) 0 units SC ACHS [facility] [place] PRN Reason: Protocol Last Admin: 06/05/17 07:25 Dose: Not Given Lactobacillus Acidophilus (Bacid Acidophilus) 1 cap PO BID [facility] Last Admin: 06/04/17 16:28 Dose: 1 cap Levalbuterol HCl (Xopenex) 0.63 mg INH RQ8 [facility] Last Admin: 06/05/17 07:16 Dose: 0.63 mg Levalbuterol HCl (Xopenex) 0.63 mg INH RQ8 PRN PRN Reason: Shortness of Breath Last Admin: 06/02/17 19:39 Dose: 0.63 mg Morphine Sulfate (Morphine) 1 mg IVP Q4 PRN PRN Reason: Agitation Pantoprazole Sodium (Protonix Ec Tab) 40 mg PO DAILY [facility] [place] Last Admin: 06/04/17 08:51 Dose: 40 mg Sitagliptin Phosphate (Januvia) 50 mg PO DAILY [facility] [place] Last Admin: 06/04/17 08:50 Dose: 50 mg - Labs Labs: 06/05/17 05:00 06/05/17 05:00 PT 16.0 Seconds (9.8-13.1) H 05/28/17 04:55 INR 1.5 (0.9-1.2) H 05/28/17 04:55 APTT 34.3 Seconds (25.6-37.1) 05/28/17 04:55
[2017-06-05] MEDS: Insulin Detemir 100 Units/ml Inj SC SCH (08:16)
--- NOTE | 2017-06-05 09:00 | CP.PCM.PN ---
Subjective - Date & Time of Evaluation Date of Evaluation: 06/05/17 Time of Evaluation: 08:53 - Subjective Subjective: Case discussed with adjunct instructor of women's studies and nurse. Patient examined with son at bedside. Interim entries in EMR noted. Labs reviewed, medications reviewed. Not responsive to verbal or tactile stimuli. Moving all extremities. Removes oxygen mask periodically. Trace dependant edema re-accumulating. No dullness anterior chest, no subcut emphysema. Breath sounds present bilaterally, very diminished posteriorly in LL's. No wheezes. ++ sonorous rhonchi bilaterally. Heart sounds distant, regular. CXR shows some partial re-expansion of the RLL. Medication changes made, can not take PO at this time. Discussed further care options with her son and the adjunct instructor of women's studies. Adequate oxygenation presently. Objective - Vital Signs/Intake and Output Vital Signs (last 24 hours): Temp Pulse Resp BP Pulse Ox 98.4 F 75 13 87/54 L 88 L 06/05/17 08:00 06/05/17 08:00 06/05/17 08:00 06/05/17 08:45 06/05/17 08:00 Intake and Output: 06/04/17 06/05/17 23:59 11:59 Intake Total 560 742 Output Total 200 Balance 360 742 - Medications Medications: Current Medications Acetylcysteine (Mucomyst 10% 4ml) 2 ml IH RBID [facility] Last Admin: 06/05/17 07:16 Dose: 2 ml Apixaban (Eliquis) 2.5 mg PO BID [facility] PRN Reason: Protocol Last Admin: 06/04/17 16:29 Dose: 2.5 mg Carvedilol (Coreg) 3.125 mg PO Q12 [facility] Last Admin: 06/05/17 08:45 Dose: Not Given Home Med (Cyclosporine [Restasis]) 1 drop BOTHEYES BID [facility] Last Admin: 06/04/17 16:28 Dose: 1 drop Home Med (Dorzolamide 2%/Timolol 0.5% [Cosopt 2%-0.5% Opht]) 1 drop EACHEYE BID [facility] Last Admin: 05/29/17 08:31 Dose: 1 drop Home Med (Tafluprost/Pf [Zioptan 0.0015% Eye Drops]) 1 drop EACHEYE HS [facility] Last Admin: 06/04/17 22:30 Dose: 1 drop Hydrocortisone (Anusol-Hc) 1 applic [place] BID [facility] Last Admin: 06/05/17 08:13 Dose: 1 applic Clindamycin Phosphate 600 mg/ (Dextrose) 54 mls @ 54 mls/hr IVPB Q12 [facility] Last Admin: 06/05/17 08:16 Dose: 54 mls/hr Piperacillin Sod/Tazobactam Sod (Zosyn 2.25 Gm Iv Premix) 2.25 gm in 50 mls @ 50 mls/hr IVPB Q12H [facility] Last Admin: 06/05/17 04:00 Dose: 50 mls/hr Norepinephrine Bitartrate 4 mg (/ Dextrose) 254 mls @ 9.52 mls/hr IV .Q24H ONE ; 2.5 MCG/MIN PRN Reason: Protocol Stop: 06/06/17 06:10 Last Titration: 06/05/17 06:42 Dose: 5 mcg/min, 19.05 mls/hr Insulin Detemir (Levemir) 8 units SC DAILY [facility] Last Admin: 06/05/17 08:16 Dose: 8 units Insulin Human Regular (Humulin R) 0 units SC ACHS [facility] PRN Reason: Protocol Last Admin: 06/05/17 07:25 Dose: Not Given Levalbuterol HCl (Xopenex) 0.63 mg INH RQ8 [facility] Last Admin: 06/05/17 07:16 Dose: 0.63 mg Levalbuterol HCl (Xopenex) 0.63 mg INH RQ8 PRN PRN Reason: Shortness of Breath Last Admin: 06/02/17 19:39 Dose: 0.63 mg Morphine Sulfate (Morphine) 1 mg IVP Q4 PRN PRN Reason: Agitation Pantoprazole Sodium (Protonix Inj) 40 mg IVP DAILY [facility] - Labs Labs: 06/05/17 05:00 06/05/17 05:00 PT 16.0 Seconds (9.8-13.1) H 05/28/17 04:55 INR 1.5 (0.9-1.2) H 05/28/17 04:55 APTT 34.3 Seconds (25.6-37.1) 05/28/17 04:55 Assessment and Plan (1) Chronic respiratory failure with hypoxia and hypercapnia Status: Chronic (2) CHF (congestive heart failure) Status: Chronic (3) COPD (chronic obstructive pulmonary disease) Status: Chronic (4) Pulmonary hypertension Status: Chronic
[2017-06-05] MEDS: Patient's Own Med (Cyclosporine [Restasis] 1 DROP) BOTHEYES SCH ×2 (09:25→16:08)
[2017-06-05] MEDS: DOBUTamine 500mg/250ml D5W 500 MG/250 ML BAG IV SCH ×2 (09:25→17:45)
--- NOTE | 2017-06-05 10:52 | RAD ---
HISTORY: F/u RLL Atelectasis COMPARISON: 06/03/2017 FINDINGS: LUNGS: There is interval improved aeration in the right lower lobe with persistent residual partial collapse of the right lower lobe. The left lung is clear. There is severe pulmonary venous congestion. PLEURA: No significant pleural effusion identified, no pneumothorax apparent. CARDIOVASCULAR: Stable cardiomegaly. Status post CABG. There is stable position of a left-sided pacemaker. Atherosclerotic aortic arch calcifications are present. OSSEOUS STRUCTURES: No significant abnormalities. VISUALIZED UPPER ABDOMEN: Normal. OTHER FINDINGS: None. IMPRESSION: Improving right lower lobe collapse.
--- NOTE | 2017-06-05 19:20 | PN ---
ENDO FOLLOWUP NOTE DATE: LOCATION: Room 421, ICU. SUBJECTIVE: This is 87-year-old female with advanced congestive heart failure and dilated cardiomyopathy with underlying COPD and is now being followed closely for metabolic management. Her glycemic levels are fluctuating but improved. The latest glucose values have ranged from 148 to 161 and 219 mg/dl. Her latest chemistry showed a BUN of 74, sodium 144, potassium 4.1, chloride 99, CO2 of 31, glucose 194 and creatinine 2.3. PLAN: So at this time, we will continue the same basal insulin given as Levemir at 8 units subcu once daily in the morning as ordered. We will also continue the low-dose correction scale using regular insulin as given. We have discontinued the dual oral hypoglycemic drug therapy with Januvia and glipizide as ordered because the patient is unresponsive at this time. She is being followed closely here in the ICU for hemodynamic monitoring as noted. We will obtain serial chemistries and supplement accordingly needed. We will follow with you. Lauryn Chandra MD
[2017-06-05] MEDS: TAFLUPROST EACHEYE SCH (21:14)
[2017-06-06] MEDS: DOBUTamine 500mg/250ml D5W 500 MG/250 ML BAG IV SCH ×3 (03:38→22:59)
[2017-06-06] MEDS: Piperacill/Tazo 2.25gm in Dex 2.25 GM/50 ML BAG IVPB SCH ×2 (04:56→16:00)
[2017-06-06 05:38] LABS: BASO % 0.2 % (0.0-2.0); EOS % 0.1 % (0.0-4.0); LYMPH # 0.2 K/uL (1.0-4.3); LYMPH % 1.8 % (20.0-40.0); MEAN CELL VOLUME 106.5 fl (81.0-99.0); MEAN CORPUSCULAR HEMOGLOBIN 31.2 pg (27.0-31.0); MEAN CORPUSCULAR HGB CONC 29.3 g/dL (33.0-37.0); MEAN PLATELET VOLUME 10.6 fl (7.2-11.7); MONO # 0.5 K/uL (0.0-0.8); MONO % 5.4 % (0.0-10.0); NEUT # 8.2 K/uL (1.8-7.0); NEUT % 92.5 % (50.0-75.0); NRBC % 0.4 % (0.0-0.0); PLATELET COUNT 105 K/uL (130-400); RED CELL DISTRIBUTION WIDTH 18.4 % (11.5-14.5); WHITE BLOOD COUNT 8.9 K/uL (4.8-10.8)
[2017-06-06 05:47] LABS: CALCIUM 7.3 mg/dL (8.4-10.2); POTASSIUM 3.4 MMOL/L (3.6-5.0)
[2017-06-06] MEDS: Insulin Regular 100 units/ml SC SCH ×3 (06:30→21:29)
--- NOTE | 2017-06-06 06:38 | CP.CCUPN ---
CCU Subjective - Physician Review Subjective (Free Text): Has now been on Dobutrex at 15 mcg/kg/min for almost 24H, BP levels variable form 80 to 95 systolic, HR 75 and paced, initially had short runs of multifocal PVCs ( 5 beat burst ) when Dobutrex first started, less so now. Neuromental status not improved and mostly somnolent. Fluids decreased to D5W at KVO rate. Other vitals and I/O's reviewed. No fever spikes noted. I/O's in positive balance last 24H, progressive oliguric, but not anuric. ROS: Not obtainable due to lethargy. No other pertinent negs or positives on system review. PMSFH: Underwent repeat R thoracentesis last week, had same procedure previously on 05/14 also. All Nursing and physician documentation reviewed to date; no new pertinent info noted relevant to current medical problems. MAJOR PROBLEMS: 1. Acute Hypercapneic Resp Failure 2 Decompensated L-CHF / Cardiomyopathy; r/ oed AMI 2. Chronic A fib on AC 3. Chronic Disease Anemia / Thrombocytopenia 4. Azotemia with oliguria / Hypernatremia PLAN: 1. Had extended discussion with family last evening again, DNI DNR status maintained with Morphine for any pain or discomfort patient may have, as perceived by the family. 2. Will keep Dobutrex at current fixed dose unless otherwise directed by cardio /PMD. 3. Renal function (BUN/Cr) is not worse today. Possible increase fluid input : could stop D5W since serum Na has normalized and change to NSS. 4. Lactate level is NORMAL. Awaiting on SvO2 measurement. Unexpected decrease in HGB noted this AM, ??possible lab error, will discuss with Cardio-PMD / Pulm /ID regarding any benefit to administering PRBCs. 5. Vibropercussion via Pulm Sport bed to continue unless not tolerated or too uncomfortable for patient. 6. Focus of care to be directed towards comfort measures only still pending consensus decision by family. CCU Objective - Vital Signs / Intake & Output Vital Signs (Last 4 hours): Vital Signs Temp Pulse Resp BP Pulse Ox 06/06/17 06:00 77 19 84/39 L 99 06/06/17 04:00 98.7 F 78 21 91/37 L 96 Intake and Output (Last 8hrs): Intake & Output 06/05/17 06/05/17 06/06/17 14:59 22:59 06:59 Intake Total 752 504 456 Output Total 75 Balance 752 429 456 Intake: IV 702 454 456 Intake, Piggyback 50 50 Oral 0 Output: Urine 75 Urethral (Mackey) 75 - Physical Exam Head: Positive for: Atraumatic, Normocephalic. Negative for: Tenderness, Contusion Pupils: Positive for: PERRL Extroacular Muscles: Positive for: EOMI Conjunctiva: Positive for: Normal. Negative for: Icteric Mouth: Positive for: Moist Mucous Membranes Pharnyx: Positive for: Normal Neck: Positive for: Normal Range of Motion, JVD (prominent venous pulsations naoted). Negative for: Bruit Respiratory/Chest: Positive for: Decreased Breath Sounds, Rhonchi (bilateral), Tachypneic. Negative for: Accessory Muscle Use, Wheezes Cardiovascular: Positive for: Regular Rate and Rhythm (Paced), Murmurs ( systolic murmur), Peripheal Pulses Present. Negative for: Rub Abdomen: Positive for: Normal Bowel Sounds. Negative for: Tenderness, Distention Upper Extremity: Positive for: Edema (mostly LUE) Lower Extremity: Positive for: Edema. Negative for: CALF TENDERNESS, Cyanosis Neurological: Positive for: Speech Normal, Motor Func Grossly Intact, Normal Sensory Function Skin: Positive for: Warm, Pale. Negative for: Rashes Psychiatric: Positive for: Lethargic - Medications Active Medications: Active Medications Generic Name Dose Route Start Last Admin Trade Name Freq PRN Reason Stop Dose Admin Acetylcysteine 2 ml 06/02/17 20:00 06/05/17 19:34 Mucomyst 10% 4ml IH Not Given RBID [facility] Apixaban 2.5 mg 05/27/17 17:45 06/05/17 16:09 Eliquis PO 2.5 mg BID [facility] Administration Protocol Carvedilol 3.125 mg 05/23/17 21:00 06/05/17 08:45 Coreg PO Not Given Q12 [facility] Home Med 1 drop 05/24/17 17:00 06/05/17 16:08 Cyclosporine [Restasis] BOTHEYES 1 drop BID [facility] Administration Home Med 1 drop 05/24/17 17:00 05/29/17 08:31 Dorzolamide 2%/Timolol 0.5% [Cosopt 2%-0.5% Opht] EACHEYE 1 drop BID [facility] Administration Home Med 1 drop 05/24/17 22:00 06/05/17 21:14 Tafluprost/Pf [Zioptan 0.0015% Eye Drops] EACHEYE 1 drop HS [facility] Administration Hydrocortisone 1 applic 05/24/17 17:00 06/05/17 16:07 Anusol-Hc TX 1 applic BID [facility] Administration Piperacillin Sod/Tazobactam Sod 2.25 gm in 50 mls @ 50 mls/hr 06/04/17 16:00 06/06/17 04:56 Zosyn 2.25 Gm Iv Premix IVPB 50 mls/hr Q12H [facility] Administration Dobutamine HCl/Dextrose 500 mg in 250 mls @ 21.773 mls/hr 06/05/17 09:00 03:38 Dobutamine/Dextrose 5% 500mg/250ml IV 21.773 mls/hr .[id number] [facility] Administration 10 MCG/KG/MIN Clindamycin Phosphate 300 mg/ 52 mls @ 52 mls/hr 06/05/17 21:00 06/05/17 21: 31 Dextrose IVPB 52 mls/hr Q12 [facility] Administration Insulin Detemir 8 units 06/01/17 09:00 06/05/17 08:16 Levemir SC 8 units DAILY [facility] Administration Insulin Human Regular 0 units 05/25/17 16:30 06/06/17 06:30 Humulin R SC Not Given ACHS [facility] Protocol Levalbuterol HCl 0.63 mg 05/23/17 21:00 06/05/17 23:54 Xopenex INH 0.63 mg RQ8 [facility] Administration Levalbuterol HCl 0.63 mg 05/24/17 12:40 06/02/17 19:39 Xopenex INH 0.63 mg RQ8 PRN Administration Shortness of Breath Morphine Sulfate 1 mg 06/04/17 09:46 Morphine IVP Q4 PRN Agitation Morphine Sulfate 2 mg 06/05/17 19:25 Morphine IVP Q2 PRN Pain, Mild (1-3) Pantoprazole Sodium 40 mg 06/05/17 09:00 06/05/17 09:43 Protonix Inj IVP 40 mg DAILY [facility] Administration - Patient Studies Lab Studies: Lab Studies 06/06/17 06/06/17 06/06/17 Range/Units 05:17 04:30 04:30 WBC (4.8-10.8) K/uL RBC (3.80-5.20) Mil/uL Hgb (12.0-16.0) g/dL Hct (34.0-47.0) % MCV (81.0-99.0) fl MCH (27.0-31.0) pg MCHC (33.0-37.0) g/dL RDW (11.5-14.5) % Plt Count (130-400) K/uL MPV (7.2-11.7) fl Neut % (Auto) (50.0-75.0) % Lymph % (Auto) (20.0-40.0) % [place] % (Auto) (0.0-10.0) % Eos % (Auto) (0.0-4.0) % Baso % (Auto) (0.0-2.0) % Neut # (1.8-7.0) K/uL Lymph # (1.0-4.3) K/uL [place] # (0.0-0.8) K/uL Eos # (0.0-0.7) K/uL Baso # (0.0-0.2) K/uL Sodium 143 (132-148) mmol/l Potassium 3.4 L (3.6-5.0) MMOL/L Chloride 105 (98-107) mmol/L Carbon Dioxide 29 (22-30) mmol/L Anion Gap 12 (10-20) BUN 69 H (7-17) mg/dl Creatinine 2.1 H (0.7-1.2) mg/dL Est GFR ( Amer) 27 Est GFR (Non-Af Amer) 22 POC Glucose (mg/dL) 73 (65-110) mg/dL Random Glucose 62 L (65-105) mg/dL Lactic Acid 1.0 (0.7-2.1) MMOL/L Calcium 7.3 L (8.4-10.2) mg/dL Total Bilirubin (0.2-1.3) mg/dl AST (14-36) U/L ALT (9-52) U/L Alkaline Phosphatase (38-126) U/L Total Protein (6.3-8.2) G/DL Albumin (3.5-5.0) g/dL Globulin (2.2-3.9) gm/dL Albumin/Globulin Ratio (1.0-2.1) 06/06/17 06/05/17 06/05/17 Range/Units 04:30 21:52 16:06 WBC 8.9 (4.8-10.8) K/uL RBC 2.62 L (3.80-5.20) Mil/uL Hgb 8.2 L (12.0-16.0) g/dL Hct 28.0 L (34.0-47.0) % MCV 106.5 H (81.0-99.0) fl MCH 31.2 H (27.0-31.0) pg MCHC 29.3 L (33.0-37.0) g/dL RDW 18.4 H (11.5-14.5) % Plt Count 105 L D (130-400) K/uL MPV 10.6 (7.2-11.7) fl Neut % (Auto) 92.5 H (50.0-75.0) % Lymph % (Auto) 1.8 L (20.0-40.0) % [place] % (Auto) 5.4 (0.0-10.0) % Eos % (Auto) 0.1 (0.0-4.0) % Baso % (Auto) 0.2 (0.0-2.0) % Neut # 8.2 H (1.8-7.0) K/uL Lymph # 0.2 L (1.0-4.3) K/uL [place] # 0.5 (0.0-0.8) K/uL Eos # 0.0 (0.0-0.7) K/uL Baso # 0.0 (0.0-0.2) K/uL Sodium (132-148) mmol/l Potassium (3.6-5.0) MMOL/L Chloride (98-107) mmol/L Carbon Dioxide (22-30) mmol/L Anion Gap (10-20) BUN (7-17) mg/dl Creatinine (0.7-1.2) mg/dL Est GFR ( Amer) Est GFR (Non-Af Amer) POC Glucose (mg/dL) 133 H 148 H (65-110) mg/dL Random Glucose (65-105) mg/dL Lactic Acid (0.7-2.1) MMOL/L Calcium (8.4-10.2) mg/dL Total Bilirubin (0.2-1.3) mg/dl AST (14-36) U/L ALT (9-52) U/L Alkaline Phosphatase (38-126) U/L Total Protein (6.3-8.2) G/DL Albumin (3.5-5.0) g/dL Globulin (2.2-3.9) gm/dL Albumin/Globulin Ratio (1.0-2.1) 06/05/17 06/05/17 06/05/17 Range/Units 11:44 05:00 05:00 WBC 11.1 H (4.8-10.8) K/uL RBC 3.18 L (3.80-5.20) Mil/uL Hgb 9.8 L (12.0-16.0) g/dL Hct 33.9 L (34.0-47.0) % MCV 106.6 H (81.0-99.0) fl MCH 30.9 (27.0-31.0) pg MCHC 29.0 L (33.0-37.0) g/dL RDW 18.8 H (11.5-14.5) % Plt Count 144 (130-400) K/uL MPV (7.2-11.7) fl Neut % (Auto) (50.0-75.0) % Lymph % (Auto) (20.0-40.0) % [place] % (Auto) (0.0-10.0) % Eos % (Auto) (0.0-4.0) % Baso % (Auto) (0.0-2.0) % Neut # (1.8-7.0) K/uL Lymph # (1.0-4.3) K/uL [place] # (0.0-0.8) K/uL Eos # (0.0-0.7) K/uL Baso # (0.0-0.2) K/uL Sodium 144 (132-148) mmol/l Potassium 4.1 (3.6-5.0) MMOL/L Chloride 99 (98-107) mmol/L Carbon Dioxide 31 H (22-30) mmol/L Anion Gap 18 (10-20) BUN 74 H (7-17) mg/dl Creatinine 2.3 H (0.7-1.2) mg/dL Est GFR ( Amer) 24 Est GFR (Non-Af Amer) 20 POC Glucose (mg/dL) 161 H (65-110) mg/dL Random Glucose 194 H (65-105) mg/dL Lactic Acid (0.7-2.1) MMOL/L Calcium 8.9 (8.4-10.2) mg/dL Total Bilirubin 0.6 (0.2-1.3) mg/dl AST 18 (14-36) U/L ALT 21 (9-52) U/L Alkaline Phosphatase 101 (38-126) U/L Total Protein 7.0 (6.3-8.2) G/DL Albumin 3.4 L (3.5-5.0) g/dL Globulin 3.6 (2.2-3.9) gm/dL Albumin/Globulin Ratio 0.9 L (1.0-2.1) Laboratory Results - last 24 hr 06/05/17 06/05/17 06/05/17 05:00 05:00 11:44 WBC 11.1 H RBC 3.18 L Hgb 9.8 L Hct 33.9 L MCV 106.6 H MCH 30.9 MCHC 29.0 L RDW 18.8 H Plt Count 144 MPV Neut % (Auto) Lymph % (Auto) [place] % (Auto) Eos % (Auto) Baso % (Auto) Neut # Lymph # [place] # Eos # Baso # Sodium 144 Potassium 4.1 Chloride 99 Carbon Dioxide 31 H Anion Gap 18 BUN 74 H Creatinine 2.3 H Est GFR ( Amer) 24 Est GFR (Non-Af Amer) 20 POC Glucose (mg/dL) 161 H Random Glucose 194 H Lactic Acid Calcium 8.9 Total Bilirubin 0.6 AST 18 ALT 21 Alkaline Phosphatase 101 Total Protein 7.0 Albumin 3.4 L Globulin 3.6 Albumin/Globulin Ratio 0.9 L 06/05/17 06/05/17 06/06/17 16:06 21:52 04:30 WBC 8.9 RBC 2.62 L Hgb 8.2 L Hct 28.0 L MCV 106.5 H MCH 31.2 H MCHC 29.3 L RDW 18.4 H Plt Count 105 L D MPV 10.6 Neut % (Auto) 92.5 H Lymph % (Auto) 1.8 L [place] % (Auto) 5.4 Eos % (Auto) 0.1 Baso % (Auto) 0.2 Neut # 8.2 H Lymph # 0.2 L [place] # 0.5 Eos # 0.0 Baso # 0.0 Sodium Potassium Chloride Carbon Dioxide Anion Gap BUN Creatinine Est GFR ( Amer) Est GFR (Non-Af Amer) POC Glucose (mg/dL) 148 H 133 H Random Glucose Lactic Acid Calcium Total Bilirubin AST ALT Alkaline Phosphatase Total Protein Albumin Globulin Albumin/Globulin Ratio 06/06/17 06/06/17 06/06/17 04:30 04:30 05:17 WBC RBC Hgb Hct MCV MCH MCHC RDW Plt Count MPV Neut % (Auto) Lymph % (Auto) [place] % (Auto) Eos % (Auto) Baso % (Auto) Neut # Lymph # [place] # Eos # Baso # Sodium 143 Potassium 3.4 L Chloride 105 Carbon Dioxide 29 Anion Gap 12 BUN 69 H Creatinine 2.1 H Est GFR ( Amer) 27 Est GFR (Non-Af Amer) 22 POC Glucose (mg/dL) 73 Random Glucose 62 L Lactic Acid 1.0 Calcium 7.3 L Total Bilirubin AST ALT Alkaline Phosphatase Total Protein Albumin Globulin Albumin/Globulin Ratio Fingerstick Blood Sugar Results: 73 Review of Systems - Review of Systems Systems not reviewed;Unavailable: Altered Mental Status Critical Care Progress Note - Nutrition Nutrition: Nutrition Category Date Time Status Dysphagia/Modified Consistency Diet [DIET] Diets 06/03/17 Breakfast Active
[2017-06-06] MEDS ORDERED: Sodium Chloride 0.9% 1,000 ML IV SCH (07:00)
[2017-06-06] MEDS: Acetylcysteine 10% 4 ML IH SCH ×2 (07:24→15:06)
[2017-06-06] MEDS: Levalbuterol 0.63 MG/3 ML Inhal Soln UD INH SCH ×3 (07:25→23:44)
--- NOTE | 2017-06-06 07:47 | CP.PCM.PN ---
Subjective - Date & Time of Evaluation Date of Evaluation: 06/06/17 Time of Evaluation: 07:40 - Subjective Subjective: Unresponsive to loud calling and shaking Paced rhythm/BP 86/64 mm Hg (On pressors) Scanty urine output (15ml in last 11/2 hrs) Labs show hypercapnoic state with acidotic pH BUN/Creatinin slightly better at 69/2.1 mg% Mild hypoK+ (will bereplaced) Discussed with dr. Mcdowell Prognosis poor. Objective - Vital Signs/Intake and Output Vital Signs (last 24 hours): Temp Pulse Resp BP Pulse Ox 98.7 F 77 19 84/39 L 99 06/06/17 04:00 06/06/17 06:00 06/06/17 06:00 06/06/17 06:00 06/06/17 06:00 Intake and Output: 06/06/17 06/06/17 06:59 18:59 Intake Total 684 Balance 684 - Medications Medications: Current Medications Acetylcysteine (Mucomyst 10% 4ml) 2 ml IH RBID [facility] Last Admin: 06/06/17 07:24 Dose: 2 ml Apixaban (Eliquis) 2.5 mg PO BID [facility] PRN Reason: Protocol Last Admin: 06/05/17 16:09 Dose: 2.5 mg Carvedilol (Coreg) 3.125 mg PO Q12 [facility] Last Admin: 06/05/17 08:45 Dose: Not Given Home Med (Cyclosporine [Restasis]) 1 drop BOTHEYES BID [facility] Last Admin: 06/05/17 16:08 Dose: 1 drop Home Med (Dorzolamide 2%/Timolol 0.5% [Cosopt 2%-0.5% Opht]) 1 drop EACHEYE BID [facility] Last Admin: 05/29/17 08:31 Dose: 1 drop Home Med (Tafluprost/Pf [Zioptan 0.0015% Eye Drops]) 1 drop EACHEYE HS [facility] Last Admin: 06/05/17 21:14 Dose: 1 drop Hydrocortisone (Anusol-Hc) 1 applic [place] BID [facility] Last Admin: 06/05/17 16:07 Dose: 1 applic Piperacillin Sod/Tazobactam Sod (Zosyn 2.25 Gm Iv Premix) 2.25 gm in 50 mls @ 50 mls/hr IVPB Q12H [facility] Last Admin: 06/06/17 04:56 Dose: 50 mls/hr Dobutamine HCl/Dextrose (Dobutamine/Dextrose 5% 500mg/250ml) 500 mg in 250 mls @ 21.773 mls/hr IV .[id number] [facility] PRN Reason: 10 MCG/KG/MIN Last Admin: 06/06/17 03:38 Dose: 21.773 mls/hr Clindamycin Phosphate 300 mg/ (Dextrose) 52 mls @ 52 mls/hr IVPB Q12 [facility] Last Admin: 06/05/17 21:31 Dose: 52 mls/hr Sodium Chloride (Sodium Chloride 0.9%) 1,000 mls @ 50 mls/hr IV .Q20H [facility] Stop: 06/07/17 06:51 Last Admin: 06/06/17 07:20 Dose: 50 mls/hr Insulin Detemir (Levemir) 8 units SC DAILY [facility] Last Admin: 06/05/17 08:16 Dose: 8 units Insulin Human Regular (Humulin R) 0 units SC ACHS [facility] PRN Reason: Protocol Last Admin: 06/06/17 06:30 Dose: Not Given Levalbuterol HCl (Xopenex) 0.63 mg INH RQ8 [facility] Last Admin: 06/06/17 07:25 Dose: 0.63 mg Levalbuterol HCl (Xopenex) 0.63 mg INH RQ8 PRN PRN Reason: Shortness of Breath Last Admin: 06/02/17 19:39 Dose: 0.63 mg Morphine Sulfate (Morphine) 1 mg IVP Q4 PRN PRN Reason: Agitation Morphine Sulfate (Morphine) 2 mg IVP Q2 PRN PRN Reason: Pain, Mild (1-3) Pantoprazole Sodium (Protonix Inj) 40 mg IVP DAILY [facility] Last Admin: 06/05/17 09:43 Dose: 40 mg - Labs Labs: 06/06/17 04:30 06/06/17 04:30 PT 16.0 Seconds (9.8-13.1) H 05/28/17 04:55 INR 1.5 (0.9-1.2) H 05/28/17 04:55 APTT 34.3 Seconds (25.6-37.1) 05/28/17 04:55
[2017-06-06 07:49] LABS: NEUTROPHIL 96 % (42-75); TOTAL CELLS COUNTED 100
[2017-06-06 07:51] LABS: LARGE PLATELETS PRESENT
[2017-06-06 08:12] LABS: EOS % 0.1 % (0.0-4.0); HEMATOCRIT 28.9 % (34.0-47.0); LYMPH # 0.2 K/uL (1.0-4.3); LYMPH % 1.9 % (20.0-40.0); MEAN CELL VOLUME 105.6 fl (81.0-99.0); MEAN CORPUSCULAR HEMOGLOBIN 31.3 pg (27.0-31.0); MEAN CORPUSCULAR HGB CONC 29.7 g/dL (33.0-37.0); MEAN PLATELET VOLUME 10.6 fl (7.2-11.7); MONO # 0.5 K/uL (0.0-0.8); MONO % 4.8 % (0.0-10.0); NEUT # 9.9 K/uL (1.8-7.0); NEUT % 93.2 % (50.0-75.0); NRBC % 0.1 % (0.0-0.0); RED CELL DISTRIBUTION WIDTH 18.8 % (11.5-14.5); WHITE BLOOD COUNT 10.7 K/uL (4.8-10.8)
[2017-06-06] MEDS: Insulin Detemir 100 Units/ml Inj SC SCH (08:39)
[2017-06-06] MEDS: Hydrocortisone 2.5% (Rectal) CREAM PR SCH ×2 (08:41→16:01)
[2017-06-06] MEDS: Patient's Own Med (Cyclosporine [Restasis] 1 DROP) BOTHEYES SCH ×2 (08:42→16:02)
--- NOTE | 2017-06-06 09:23 | CP.PCM.PN ---
Subjective - Date & Time of Evaluation Date of Evaluation: 06/06/17 Time of Evaluation: 09:20 - Subjective Subjective: Seen on morning rounds in ICU. Interim events and EMR entries noted. Case discussed with photoflash powder mixer. Son and daughter present during exam. On oxygen via CAM @ 100%, SpO2 100. Myoclonus of the upper extremities noted, mostly right side. Not responsive to vocal or tactile stimuli. VBG done this morning, calc O2 sat 77%, pH 7.25. Oliguric. WBC, Hgb, platelets decreasing. Occasional cough, as per family members is ineffective. Coarse rhonchi are present bilaterally, breath sounds are diminished posteriorly in both lungs. No audible wheezing or bronchial breathing. Paced rhythm on monitor. Trace dependant edema, no cyanosis. Continue present regimen with focus on comfort measures. Medical therapy to continue w/o more aggressive interventions. DNR/DNI remains in effect. Objective - Vital Signs/Intake and Output Vital Signs (last 24 hours): Temp Pulse Resp BP Pulse Ox 97.6 F 84 17 105/46 L 99 06/06/17 08:00 06/06/17 08:00 06/06/17 08:00 06/06/17 08:00 06/06/17 08:00 Intake and Output: 06/05/17 06/06/17 23:59 11:59 Intake Total 630 486 Output Total 75 Balance 555 486 - Medications Medications: Current Medications Acetylcysteine (Mucomyst 10% 4ml) 2 ml IH RBID [facility] Last Admin: 06/06/17 07:24 Dose: 2 ml Apixaban (Eliquis) 2.5 mg PO BID [facility] PRN Reason: Protocol Last Admin: 06/05/17 16:09 Dose: 2.5 mg Carvedilol (Coreg) 3.125 mg PO Q12 [facility] Last Admin: 06/05/17 08:45 Dose: Not Given Home Med (Cyclosporine [Restasis]) 1 drop BOTHEYES BID [facility] Last Admin: 06/06/17 08:42 Dose: 1 drop Home Med (Dorzolamide 2%/Timolol 0.5% [Cosopt 2%-0.5% Opht]) 1 drop EACHEYE BID [facility] Last Admin: 05/29/17 08:31 Dose: 1 drop Home Med (Tafluprost/Pf [Zioptan 0.0015% Eye Drops]) 1 drop EACHEYE HS [facility] Last Admin: 06/05/17 21:14 Dose: 1 drop Hydrocortisone (Anusol-Hc) 1 applic [place] BID [facility] Last Admin: 06/06/17 08:41 Dose: 1 applic Piperacillin Sod/Tazobactam Sod (Zosyn 2.25 Gm Iv Premix) 2.25 gm in 50 mls @ 50 mls/hr IVPB Q12H [facility] Last Admin: 06/06/17 04:56 Dose: 50 mls/hr Dobutamine HCl/Dextrose (Dobutamine/Dextrose 5% 500mg/250ml) 500 mg in 250 mls @ 21.773 mls/hr IV .[id number] [facility] PRN Reason: 10 MCG/KG/MIN Last Admin: 06/06/17 03:38 Dose: 21.773 mls/hr Clindamycin Phosphate 300 mg/ (Dextrose) 52 mls @ 52 mls/hr IVPB Q12 [facility] Last Admin: 06/06/17 08:39 Dose: 52 mls/hr Sodium Chloride (Sodium Chloride 0.9%) 1,000 mls @ 50 mls/hr IV .Q20H [facility] Stop: 06/07/17 06:51 Last Admin: 06/06/17 07:20 Dose: 50 mls/hr Insulin Detemir (Levemir) 8 units SC DAILY [facility] Last Admin: 06/06/17 08:39 Dose: 8 units Insulin Human Regular (Humulin R) 0 units SC ACHS [facility] PRN Reason: Protocol Last Admin: 06/06/17 06:30 Dose: Not Given Levalbuterol HCl (Xopenex) 0.63 mg INH RQ8 [facility] Last Admin: 06/06/17 07:25 Dose: 0.63 mg Levalbuterol HCl (Xopenex) 0.63 mg INH RQ8 PRN PRN Reason: Shortness of Breath Last Admin: 06/02/17 19:39 Dose: 0.63 mg Morphine Sulfate (Morphine) 1 mg IVP Q4 PRN PRN Reason: Agitation Morphine Sulfate (Morphine) 2 mg IVP Q2 PRN PRN Reason: Pain, Mild (1-3) Pantoprazole Sodium (Protonix Inj) 40 mg IVP DAILY [facility] Last Admin: 06/06/17 08:41 Dose: 40 mg - Labs Labs: 06/06/17 07:34 06/06/17 04:30 PT 16.0 Seconds (9.8-13.1) H 05/28/17 04:55 INR 1.5 (0.9-1.2) H 05/28/17 04:55 APTT 34.3 Seconds (25.6-37.1) 05/28/17 04:55 Assessment and Plan (1) Chronic respiratory failure with hypoxia and hypercapnia Status: Chronic (2) CHF (congestive heart failure) Status: Chronic (3) COPD (chronic obstructive pulmonary disease) Status: Chronic (4) Pulmonary hypertension Status: Chronic
--- NOTE | 2017-06-06 12:36 | CP.PCM.PN ---
Subjective - Date & Time of Evaluation Date of Evaluation: 06/06/17 Time of Evaluation: 12:31 - Subjective Subjective: I D NOTE PATIENTs OVERNIGHT EVENTS REVIEWED EVENTS DISCUSSED c FAMILY NOT RESONSIVE ,AFEBRILE WBC TODAY X 2 10.7,8.6 CONTINUE ADJUSTED DOSES OF CLINDAMYCIN AND ZOSYN Objective - Vital Signs/Intake and Output Vital Signs (last 24 hours): Temp Pulse Resp BP Pulse Ox 97.6 F 77 24 81/66 L 98 06/06/17 08:00 06/06/17 10:00 06/06/17 12:05 06/06/17 10:00 06/06/17 10:00 Intake and Output: 06/06/17 06/06/17 06:59 18:59 Intake Total 684 80 Balance 684 80 - Medications Medications: Current Medications Acetylcysteine (Mucomyst 10% 4ml) 2 ml IH RBID [facility] Last Admin: 06/06/17 07:24 Dose: 2 ml Apixaban (Eliquis) 2.5 mg PO BID [facility] PRN Reason: Protocol Last Admin: 06/05/17 16:09 Dose: 2.5 mg Carvedilol (Coreg) 3.125 mg PO Q12 [facility] Last Admin: 06/05/17 08:45 Dose: Not Given Home Med (Cyclosporine [Restasis]) 1 drop BOTHEYES BID [facility] Last Admin: 06/06/17 08:42 Dose: 1 drop Home Med (Dorzolamide 2%/Timolol 0.5% [Cosopt 2%-0.5% Opht]) 1 drop EACHEYE BID [facility] Last Admin: 05/29/17 08:31 Dose: 1 drop Home Med (Tafluprost/Pf [Zioptan 0.0015% Eye Drops]) 1 drop EACHEYE HS [facility] Last Admin: 06/05/17 21:14 Dose: 1 drop Hydrocortisone (Anusol-Hc) 1 applic [place] BID [facility] Last Admin: 06/06/17 08:41 Dose: 1 applic Piperacillin Sod/Tazobactam Sod (Zosyn 2.25 Gm Iv Premix) 2.25 gm in 50 mls @ 50 mls/hr IVPB Q12H [facility] Last Admin: 06/06/17 04:56 Dose: 50 mls/hr Dobutamine HCl/Dextrose (Dobutamine/Dextrose 5% 500mg/250ml) 500 mg in 250 mls @ 21.773 mls/hr IV .[id number] [facility] PRN Reason: 10 MCG/KG/MIN Last Admin: 06/06/17 03:38 Dose: 21.773 mls/hr Clindamycin Phosphate 300 mg/ (Dextrose) 52 mls @ 52 mls/hr IVPB Q12 [facility] Last Admin: 06/06/17 08:39 Dose: 52 mls/hr Sodium Chloride (Sodium Chloride 0.9%) 1,000 mls @ 50 mls/hr IV .Q20H [facility] Stop: 06/07/17 06:51 Last Admin: 06/06/17 07:20 Dose: 50 mls/hr Dextrose/Sodium Chloride (Dextrose 5%/0.9% Ns 1000 Ml) 1,000 mls @ 50 mls/hr IV .Q20H [facility] Stop: 06/08/17 04:14 Insulin Detemir (Levemir) 8 units SC DAILY [facility] Last Admin: 06/06/17 08:39 Dose: 8 units Insulin Human Regular (Humulin R) 0 units SC ACHS [facility] PRN Reason: Protocol Last Admin: 06/06/17 06:30 Dose: Not Given Levalbuterol HCl (Xopenex) 0.63 mg INH RQ8 [facility] Last Admin: 06/06/17 07:25 Dose: 0.63 mg Levalbuterol HCl (Xopenex) 0.63 mg INH RQ8 PRN PRN Reason: Shortness of Breath Last Admin: 06/02/17 19:39 Dose: 0.63 mg Morphine Sulfate (Morphine) 1 mg IVP Q4 PRN PRN Reason: Agitation Morphine Sulfate (Morphine) 2 mg IVP Q2 PRN PRN Reason: Pain, Mild (1-3) Pantoprazole Sodium (Protonix Inj) 40 mg IVP DAILY [facility] Last Admin: 06/06/17 08:41 Dose: 40 mg - Labs Labs: 06/06/17 07:34 06/06/17 04:30 PT 16.0 Seconds (9.8-13.1) H 05/28/17 04:55 INR 1.5 (0.9-1.2) H 05/28/17 04:55 APTT 34.3 Seconds (25.6-37.1) 05/28/17 04:55
[2017-06-06 13:11] LABS: VENOUS BLOOD GAS BASE EXCESS 7.1 mmol/L (0.0-2.0); VENOUS BLOOD GAS MODE HIGH FLOW LPM; VENOUS BLOOD GAS PCO2 78 mmHg (40-60); VENOUS BLOOD PH 7.27 (7.32-7.43)
[2017-06-06] MEDS: Dextrose 5%/0.9% NS 1,000 ML IV SCH (13:13)
[2017-06-06] MEDS: TAFLUPROST EACHEYE SCH (21:13)
[2017-06-06 21:14] LABS: VENOUS BLOOD GAS BASE EXCESS 7.8 mmol/L (0.0-2.0); VENOUS BLOOD GAS MODE HIGH FLOW LPM; VENOUS BLOOD GAS PCO2 71 mmHg (40-60); VENOUS BLOOD PH 7.31 (7.32-7.43)
--- NOTE | 2017-06-07 01:58 | PN ---
DATE: ENDO-FOLLOWUP NOTE LOCATION: ICU, room 421. SUBJECTIVE: This is an 87-year-old female with advanced COPD and supervening congestive heart failure, now clinically and hemodynamically deteriorating at this time. She is being followed closely also for metabolic management because of recent hyperglycemic accelerations as noted thereof. At this time, she is actually unresponsive with ongoing close hemodynamic monitoring in the ICU as noted. Her latest chemistries showed a BUN of 69, sodium 143, potassium 3.4, chloride 105, CO2 of 29, glucose 62 and creatinine 2.1. Her glucose levels have ranged from 73-110 mg/dL. So at this time, we will hold the basal insulin given as Levemir at 8 units subcu daily as ordered. We will also continue the low-dose correction scale using regular insulin as given. We will titrate incremental as indicated to optimize metabolic control. We will follow. Lauryn Chandra MD
[2017-06-07] MEDS: Piperacill/Tazo 2.25gm in Dex 2.25 GM/50 ML BAG IVPB SCH ×2 (03:31→18:05)
[2017-06-07] MEDS: Insulin Regular 100 units/ml SC SCH ×4 (07:18→21:49)
[2017-06-07 07:32] LABS: HEMATOCRIT 30.2 % (34.0-47.0); MEAN CELL VOLUME 103.9 fl (81.0-99.0); MEAN CORPUSCULAR HEMOGLOBIN 30.6 pg (27.0-31.0); MEAN CORPUSCULAR HGB CONC 29.5 g/dL (33.0-37.0); RED CELL DISTRIBUTION WIDTH 18.2 % (11.5-14.5); WHITE BLOOD COUNT 8.8 K/uL (4.8-10.8)
[2017-06-07] MEDS: Levalbuterol 0.63 MG/3 ML Inhal Soln UD INH SCH ×3 (07:38→23:54)
[2017-06-07] MEDS: Acetylcysteine 10% 4 ML IH SCH ×2 (07:38→16:08)
[2017-06-07 07:51] LABS: CALCIUM 8.3 mg/dL (8.4-10.2); POTASSIUM 3.3 MMOL/L (3.6-5.0)
[2017-06-07] MEDS: DOBUTamine 500mg/250ml D5W 500 MG/250 ML BAG IV SCH ×2 (08:54→20:01)
[2017-06-07] MEDS: Patient's Own Med (Dorzolamide 2%/Timolol 0.5% [Cosopt 2%-0.5% Opht] 1 DROP) EACHEYE SCH ×2 (09:00→18:19)
[2017-06-07] MEDS: Patient's Own Med (Cyclosporine [Restasis] 1 DROP) BOTHEYES SCH ×2 (09:00→18:07)
[2017-06-07] MEDS: Hydrocortisone 2.5% (Rectal) CREAM PR SCH ×2 (09:05→18:06)
[2017-06-07] MEDS: Dextrose 5%/0.9% NS 1,000 ML IV SCH (09:29)
--- NOTE | 2017-06-07 10:51 | CP.PCM.PN ---
Subjective - Date & Time of Evaluation Date of Evaluation: 06/07/17 Time of Evaluation: 09:00 - Subjective Subjective: Family present at times is agitated no obvious signs of pain opens her eyes but not aware of surroundings Monitor Pacemaker rhythm / capturing well at times in her own rhythm Atrial Fibrillation Prognosis poor Objective - Vital Signs/Intake and Output Vital Signs (last 24 hours): Temp Pulse Resp BP Pulse Ox 96.5 F L 79 20 89/34 L 97 06/07/17 08:00 06/07/17 08:00 06/07/17 08:00 06/07/17 08:00 06/07/17 08:00 Intake and Output: 06/07/17 06/07/17 06:59 18:59 Intake Total 1034 65 Balance 1034 65 - Medications Medications: Current Medications Acetylcysteine (Mucomyst 10% 4ml) 2 ml IH RBID [facility] Last Admin: 06/07/17 07:38 Dose: 2 ml Apixaban (Eliquis) 2.5 mg PO BID [facility] PRN Reason: Protocol Last Admin: 06/05/17 16:09 Dose: 2.5 mg Carvedilol (Coreg) 3.125 mg PO Q12 [facility] Last Admin: 06/05/17 08:45 Dose: Not Given Home Med (Cyclosporine [Restasis]) 1 drop BOTHEYES BID [facility] Last Admin: 06/07/17 09:00 Dose: 1 drop Home Med (Dorzolamide 2%/Timolol 0.5% [Cosopt 2%-0.5% Opht]) 1 drop EACHEYE BID [facility] Last Admin: 05/29/17 08:31 Dose: 1 drop Home Med (Tafluprost/Pf [Zioptan 0.0015% Eye Drops]) 1 drop EACHEYE HS [facility] Last Admin: 06/06/17 21:13 Dose: 1 drop Hydrocortisone (Anusol-Hc) 1 applic [place] BID [facility] Last Admin: 06/07/17 09:05 Dose: 1 applic Piperacillin Sod/Tazobactam Sod (Zosyn 2.25 Gm Iv Premix) 2.25 gm in 50 mls @ 50 mls/hr IVPB Q12H [facility] Last Admin: 06/07/17 03:31 Dose: 50 mls/hr Dobutamine HCl/Dextrose (Dobutamine/Dextrose 5% 500mg/250ml) 500 mg in 250 mls @ 21.773 mls/hr IV .[id number] [facility] PRN Reason: 10 MCG/KG/MIN Last Admin: 06/07/17 08:54 Dose: 21.773 mls/hr Dextrose/Sodium Chloride (Dextrose 5%/0.9% Ns 1000 Ml) 1,000 mls @ 50 mls/hr IV .Q20H [facility] Stop: 06/08/17 04:14 Last Admin: 06/07/17 09:29 Dose: 50 mls/hr Potassium Chloride (Potassium Cl 10meq/50ml Sterile Water) 50 mls @ 50 mls/hr IVPB Q1 [facility] Stop: 06/07/17 13:59 Insulin Detemir (Levemir) 8 units SC DAILY [facility] Last Admin: 06/06/17 08:39 Dose: 8 units Insulin Human Regular (Humulin R) 0 units SC ACHS [facility] PRN Reason: Protocol Last Admin: 06/07/17 07:18 Dose: Not Given Levalbuterol HCl (Xopenex) 0.63 mg INH RQ8 [facility] Last Admin: 06/07/17 07:38 Dose: 0.63 mg Levalbuterol HCl (Xopenex) 0.63 mg INH RQ8 PRN PRN Reason: Shortness of Breath Last Admin: 06/02/17 19:39 Dose: 0.63 mg Morphine Sulfate (Morphine) 1 mg IVP Q4 PRN PRN Reason: Agitation Last Admin: 06/07/17 06:39 Dose: 1 mg Morphine Sulfate (Morphine) 2 mg IVP Q2 PRN PRN Reason: Pain, Mild (1-3) Pantoprazole Sodium (Protonix Inj) 40 mg IVP DAILY [facility] Last Admin: 06/06/17 08:41 Dose: 40 mg - Labs Labs: 06/07/17 07:00 06/07/17 05:30 PT 16.0 Seconds (9.8-13.1) H 05/28/17 04:55 INR 1.5 (0.9-1.2) H 05/28/17 04:55 APTT 34.3 Seconds (25.6-37.1) 05/28/17 04:55 Assessment and Plan (1) CHF (congestive heart failure) Status: Chronic (2) Hypercarbia Status: Acute (3) Dyspnea Status: Acute (4) Atrial fibrillation with controlled ventricular response Status: Chronic (5) COPD (chronic obstructive pulmonary disease) Status: Chronic (6) Cardiomyopathy Status: Chronic (7) Pulmonary hypertension Status: Chronic
--- NOTE | 2017-06-07 11:11 | CP.PCM.PN ---
Subjective - Date & Time of Evaluation Date of Evaluation: 06/07/17 Time of Evaluation: 11:09 - Subjective Subjective: Interim events reviewed. New entries in EMR reviewed. Family members at the bedside. SpO2 ranges between 88 and 96%. Flow rate on HFNC increased to 20LPM. Purposeful movements noted, but not following commands. Myoclonus appears to continue (CO2/tissue hypoxia/uremia?). Clinically unchanged. No CXR today. Congested cough, swallows sputum. Continue primary comfort measures. Objective - Vital Signs/Intake and Output Vital Signs (last 24 hours): Temp Pulse Resp BP Pulse Ox 96.5 F L 79 20 89/34 L 97 06/07/17 08:00 06/07/17 08:00 06/07/17 08:00 06/07/17 08:00 06/07/17 08:00 Intake and Output: 06/06/17 06/07/17 23:59 11:59 Intake Total 1150 771 Output Total 175 Balance 975 771 - Medications Medications: Current Medications Acetylcysteine (Mucomyst 10% 4ml) 2 ml IH RBID [facility] Last Admin: 06/07/17 07:38 Dose: 2 ml Apixaban (Eliquis) 2.5 mg PO BID [facility] PRN Reason: Protocol Last Admin: 06/05/17 16:09 Dose: 2.5 mg Carvedilol (Coreg) 3.125 mg PO Q12 [facility] Last Admin: 06/05/17 08:45 Dose: Not Given Home Med (Cyclosporine [Restasis]) 1 drop BOTHEYES BID [facility] Last Admin: 06/07/17 09:00 Dose: 1 drop Home Med (Dorzolamide 2%/Timolol 0.5% [Cosopt 2%-0.5% Opht]) 1 drop EACHEYE BID [facility] Last Admin: 05/29/17 08:31 Dose: 1 drop Home Med (Tafluprost/Pf [Zioptan 0.0015% Eye Drops]) 1 drop EACHEYE HS [facility] Last Admin: 06/06/17 21:13 Dose: 1 drop Hydrocortisone (Anusol-Hc) 1 applic [place] BID [facility] Last Admin: 06/07/17 09:05 Dose: 1 applic Piperacillin Sod/Tazobactam Sod (Zosyn 2.25 Gm Iv Premix) 2.25 gm in 50 mls @ 50 mls/hr IVPB Q12H [facility] Last Admin: 06/07/17 03:31 Dose: 50 mls/hr Dobutamine HCl/Dextrose (Dobutamine/Dextrose 5% 500mg/250ml) 500 mg in 250 mls @ 21.773 mls/hr IV .[id number] [facility] PRN Reason: 10 MCG/KG/MIN Last Admin: 06/07/17 08:54 Dose: 21.773 mls/hr Dextrose/Sodium Chloride (Dextrose 5%/0.9% Ns 1000 Ml) 1,000 mls @ 50 mls/hr IV .Q20H [facility] Stop: 06/08/17 04:14 Last Admin: 06/07/17 09:29 Dose: 50 mls/hr Potassium Chloride (Potassium Cl 10meq/50ml Sterile Water) 50 mls @ 50 mls/hr IVPB Q1 [facility] Stop: 06/07/17 13:59 Insulin Detemir (Levemir) 8 units SC DAILY [facility] Last Admin: 06/06/17 08:39 Dose: 8 units Insulin Human Regular (Humulin R) 0 units SC ACHS [facility] PRN Reason: Protocol Last Admin: 06/07/17 07:18 Dose: Not Given Levalbuterol HCl (Xopenex) 0.63 mg INH RQ8 [facility] Last Admin: 06/07/17 07:38 Dose: 0.63 mg Levalbuterol HCl (Xopenex) 0.63 mg INH RQ8 PRN PRN Reason: Shortness of Breath Last Admin: 06/02/17 19:39 Dose: 0.63 mg Morphine Sulfate (Morphine) 1 mg IVP Q4 PRN PRN Reason: Agitation Last Admin: 06/07/17 06:39 Dose: 1 mg Morphine Sulfate (Morphine) 2 mg IVP Q2 PRN PRN Reason: Pain, Mild (1-3) Pantoprazole Sodium (Protonix Inj) 40 mg IVP DAILY [facility] Last Admin: 06/06/17 08:41 Dose: 40 mg - Labs Labs: 06/07/17 07:00 06/07/17 05:30 PT 16.0 Seconds (9.8-13.1) H 05/28/17 04:55 INR 1.5 (0.9-1.2) H 05/28/17 04:55 APTT 34.3 Seconds (25.6-37.1) 05/28/17 04:55 Assessment and Plan (1) Chronic respiratory failure with hypoxia and hypercapnia Status: Chronic (2) CHF (congestive heart failure) Status: Chronic (3) COPD (chronic obstructive pulmonary disease) Status: Chronic (4) Pulmonary hypertension Status: Chronic
[2017-06-07] MEDS: Potassium CL 10 MEQ/50 ML 50 ML IVPB SCH ×3 (11:36→16:08)
[2017-06-07 12:57] LABS: VENOUS BLOOD GAS BASE EXCESS 3.4 mmol/L (0.0-2.0); VENOUS BLOOD GAS PCO2 88 mmHg (40-60)
[2017-06-07 14:55] LABS: VENOUS BLOOD GAS BASE EXCESS 7.8 mmol/L (0.0-2.0); VENOUS BLOOD GAS MODE HIGH FLOW LPM; VENOUS BLOOD GAS PCO2 71 mmHg (40-60); VENOUS BLOOD PH 7.31 (7.32-7.43)
[2017-06-07 16:22] LABS: BLOOD GAS HEMOGLOBIN 9.9 g/dL (11.7-17.4); CARBOXYHEMOGLOBIN 0.8 % (0.5-1.5); HHB 19.2 % (0.0-5.0); METHEMOGLOBIN 1.7 % (0.0-3.0); VENOUS BLOOD GAS PCO2 84 mmHg (40-60); VENOUS BLOOD HGB O2 SAT 78.2 % (95.0-98.0); VENOUS BLOOD PH 7.21 (7.32-7.43)
[2017-06-07 19:42] LABS: MAGNESIUM 2.2 MG/DL (1.6-2.3); PHOSPHOROUS 4.2 mg/dl (2.5-4.5)
[2017-06-07] MEDS: TAFLUPROST EACHEYE SCH (21:53)
--- NOTE | 2017-06-08 00:12 | PN ---
CRITICAL CARE PROGRESS NOTE DATE: 06/07/2017 SUBJECTIVE: The patient is seen and examined at the bedside. Past medical, surgical, and social history reviewed, overnight on high-flow nasal oxygen, telemetry, paced rhythm alternating with the patient's baseline rhythm, atrial fibrillation, remains lethargic, poor response to verbal stimuli. Spontaneous movement of both upper and lower legs noted. Seen by pulmonary consult, Dr. Quesada, increased high-flow oxygen to 30 liters and oxygen to 80%. Remains comfortable on the current setting. PHYSICAL EXAMINATION VITAL SIGNS: Temperature 96.5; heart rate 79, irregular; blood pressure 89/34; mean arterial pressure of 52. Respiratory rate 15 to 20. Intake 1936, output 175. Positive balance 1761. HEAD, EYES, EARS, NOSE, AND THROAT: Pupils are reactive. Conjunctivae pink. Sclerae white. NECK: Supple. CHEST: Decreased breath sounds, bilateral rhonchi. HEART: Rhythm, irregular. Soft systolic murmur at the left sternal border. ABDOMEN: Bowel sounds present. Soft. EXTREMITIES: Edema, left upper extremity more than right upper extremity. No palpable cord. Dorsalis pedis palpable, but reduced in intensity. NEUROLOGIC: Reduced response to verbal stimuli, but wakeful. Moves upper and lower extremities. SKIN: Without rash. LABORATORY DATA: Chest x-ray done on 06/05, improving right lower lobe collapse. WBC 8.8, hemoglobin 8.9, hematocrit 30.2, platelet count 118. PT 16, INR 1.5, PTT 34.3. VBG, pH of 7.27, pCO2 of 78, bicarbonate 30. SMA-7, sodium 144, potassium 3.3, chloride 100, CO2 of 31. Blood urea nitrogen 72. Creatinine 2.4. Glucose 164. Urinalysis; leuko esterase large, rbc 6, wbc rare. Pleural fluid on 05/30; wbc 180, rbc 19215, neutrophils 27, lymphocytes 42, monocytes 31, glucose 71, total protein 2.4, albumin 1.2, amylase less than 30, cloudy. Urine culture, Enterococcus faecalis. Pleural fluid, no growth. Blood culture, no growth reported. CURRENT MEDICATIONS: 1. Mucomyst 10% 2 mL via nebulizer twice daily. 2. Eliquis 2.5 mg twice daily. 3. Coreg 3.125 mg q.12. 4. D5 normal at 50 mL per hour. 5. Dobutrex drip at fixed dose. 6. Hydrocortisone, Anusol 1 application per rectum b.i.d. 7. Levemir 8 units subcu daily, Accu Chek with regular insulin coverage. 8. Xopenex 0.63 mg via nebulizer q. 8 hours. 9. Morphine 1 mg IV q. 4 p.r.n. 10. Protonix 40 IV daily. 11. Zosyn 2.25 g IV q.12 hours. IMPRESSION: 1. Neurologic: Toxic, metabolic, possible septic encephalopathy. Mental status deteriorated compared to last couple of days. 2. Pulmonary: Hypercapnic hypoxic respiratory failure. Bilateral pleural effusion, more on the right than the left, status post thoracentesis. Pleural fluid suggesting transudate. 3. Cardiac: Atrial fibrillation. Status post permanent pacemaker with paced rhythm. Congestive heart failure, decompensated. 4. Renal: Acute on chronic renal insufficiency, on IV fluid at 50 mL per hour. 5. Infectious disease: Urine positive for Enterococcus faecalis and healthcare-associated pneumonia, bilateral pleural effusion. 6. Hematology. Anemia of chronic disease, thrombocytopenia, stable. Given multiorgan failure, prognosis remains guarded. Currently DNR/DNI. Pursuing comfort measures as discussed with family members. We will continue morphine as needed for comfort care. Terrance Astudillo MD
[2017-06-08] MEDS: Piperacill/Tazo 2.25gm in Dex 2.25 GM/50 ML BAG IVPB SCH ×2 (03:25→18:38)
[2017-06-08] MEDS: DOBUTamine 500mg/250ml D5W 500 MG/250 ML BAG IV SCH ×3 (03:58→22:27)
[2017-06-08] MEDS: Insulin Regular 100 units/ml SC SCH ×4 (06:38→22:24)
[2017-06-08] MEDS: Acetylcysteine 10% 4 ML IH SCH ×2 (07:34→15:15)
[2017-06-08] MEDS: Levalbuterol 0.63 MG/3 ML Inhal Soln UD INH SCH ×3 (07:34→23:30)
[2017-06-08] MEDS: Patient's Own Med (Dorzolamide 2%/Timolol 0.5% [Cosopt 2%-0.5% Opht] 1 DROP) EACHEYE SCH ×2 (08:39→18:18)
[2017-06-08] MEDS: Patient's Own Med (Cyclosporine [Restasis] 1 DROP) BOTHEYES SCH ×2 (08:40→18:18)
[2017-06-08] MEDS: Hydrocortisone 2.5% (Rectal) CREAM PR SCH ×2 (08:41→18:18)
--- NOTE | 2017-06-08 09:24 | PN ---
ENDOCRINOLOGY FOLLOWUP NOTE LOCATION: Room #421, ICU. This is an 87-year-old female with advanced congestive heart failure and underlying dilated cardiomyopathy with concomitant COPD, now clinically and hemodynamically deteriorating at this time. She remains unresponsive and has no oral intake at this point in time. Her glucose levels are fluctuating but improved and the latest glucose levels have ranged from 164-180 and 246 mg/dL. The rehab actually held off the Levemir which should really be restarted because she continues to have hyperglycemic accelerations even with no oral intake. There is ongoing hepatic gluconeogenesis which will explain the persistent hyperglycemic accelerations even with no oral intake. So, she really needs basal insulin to be given at the low dose as ordered. We will continue the low-dose correction scale using Humalog insulin as given. We will obtain serial chemistries and supplement accordingly as needed. We will follow with you. Lauryn Chandra MD
--- NOTE | 2017-06-08 09:28 | CP.PCM.PN ---
Subjective - Date & Time of Evaluation Date of Evaluation: 06/08/17 Time of Evaluation: 09:00 - Subjective Subjective: Resting comfortably Still gets periods of agitation HR: PMR lungs: clear Objective - Vital Signs/Intake and Output Vital Signs (last 24 hours): Temp Pulse Resp BP Pulse Ox 96.7 F L 75 24 104/43 L 90 L 06/08/17 04:00 06/08/17 08:40 06/08/17 08:07 06/08/17 08:40 06/08/17 06:00 Intake and Output: 06/08/17 06/08/17 06:59 18:59 Intake Total 912 Output Total 200 Balance 712 - Medications Medications: Current Medications Acetylcysteine (Mucomyst 10% 4ml) 2 ml IH RBID [facility] Last Admin: 06/08/17 07:34 Dose: 2 ml Apixaban (Eliquis) 2.5 mg PO BID [facility] PRN Reason: Protocol Last Admin: 06/05/17 16:09 Dose: 2.5 mg Carvedilol (Coreg) 3.125 mg PO Q12 [facility] Last Admin: 06/08/17 08:40 Dose: Not Given Home Med (Cyclosporine [Restasis]) 1 drop BOTHEYES BID [facility] Last Admin: 06/08/17 08:40 Dose: 1 drop Home Med (Dorzolamide 2%/Timolol 0.5% [Cosopt 2%-0.5% Opht]) 1 drop EACHEYE BID [facility] Last Admin: 06/08/17 08:39 Dose: 1 drop Home Med (Tafluprost/Pf [Zioptan 0.0015% Eye Drops]) 1 drop EACHEYE HS [facility] Last Admin: 06/07/17 21:53 Dose: 1 drop Hydrocortisone (Anusol-Hc) 1 applic [place] BID [facility] Last Admin: 06/08/17 08:41 Dose: 1 applic Piperacillin Sod/Tazobactam Sod (Zosyn 2.25 Gm Iv Premix) 2.25 gm in 50 mls @ 50 mls/hr IVPB Q12H [facility] Last Admin: 06/08/17 03:25 Dose: 50 mls/hr Dobutamine HCl/Dextrose (Dobutamine/Dextrose 5% 500mg/250ml) 500 mg in 250 mls @ 17.044 mls/hr IV .[id number] [facility]; 15 MCG/KG/MIN PRN Reason: Protocol Last Admin: 06/08/17 03:58 Dose: 17.044 mls/hr Insulin Detemir (Levemir) 8 units SC DAILY [facility] Last Admin: 06/06/17 08:39 Dose: 8 units Insulin Human Regular (Humulin R) 0 units SC ACHS [facility] PRN Reason: Protocol Last Admin: 06/08/17 06:38 Dose: Not Given Levalbuterol HCl (Xopenex) 0.63 mg INH RQ8 [facility] Last Admin: 06/08/17 07:34 Dose: 0.63 mg Levalbuterol HCl (Xopenex) 0.63 mg INH RQ8 PRN PRN Reason: Shortness of Breath Last Admin: 06/02/17 19:39 Dose: 0.63 mg Morphine Sulfate (Morphine) 1 mg IVP Q4 PRN PRN Reason: Agitation Last Admin: 06/08/17 08:38 Dose: 1 mg Morphine Sulfate (Morphine) 2 mg IVP Q2 PRN PRN Reason: Pain, Mild (1-3) Pantoprazole Sodium (Protonix Inj) 40 mg IVP DAILY [facility] Last Admin: 06/08/17 08:39 Dose: 40 mg - Labs Labs: 06/07/17 07:00 06/07/17 05:30 PT 16.0 Seconds (9.8-13.1) H 05/28/17 04:55 INR 1.5 (0.9-1.2) H 05/28/17 04:55 APTT 34.3 Seconds (25.6-37.1) 05/28/17 04:55 Assessment and Plan (1) CHF (congestive heart failure) Status: Chronic (2) Hypercarbia Status: Acute (3) Dyspnea Status: Acute (4) Atrial fibrillation with controlled ventricular response Status: Chronic (5) COPD (chronic obstructive pulmonary disease) Status: Chronic (6) Cardiomyopathy Status: Chronic (7) Pulmonary hypertension Status: Chronic
--- NOTE | 2017-06-08 10:14 | CP.CCUPN ---
CCU Subjective - Physician Review Events Since Last Encounter (Free Text): 06/08/17 10:11 Patient lethergic, no response to verbal stimuli, no fever, no vomiting, no pressors, events reviewed CCU Objective - Vital Signs / Intake & Output Vital Signs (Last 4 hours): Vital Signs Pulse Resp BP 06/08/17 08:40 75 104/43 L 06/08/17 08:07 24 Intake and Output (Last 8hrs): Intake & Output 06/07/17 06/08/17 06/08/17 22:59 06:59 14:59 Intake Total 652 620 Output Total 300 100 Balance 352 520 Weight 83 lb 8 oz Intake: IV 460 350 Intake, Piggyback 192 270 Output: Urine 300 100 Urethral (Mackey) 300 100 - Physical Exam Head: Positive for: Atraumatic, Normocephalic. Negative for: Tenderness, Contusion Pupils: Positive for: PERRL Conjunctiva: Positive for: Normal. Negative for: Icteric Mouth: Positive for: Moist Mucous Membranes Pharnyx: Positive for: Normal Neck: Positive for: Normal Range of Motion, JVD (prominent venous pulsations naoted). Negative for: Bruit Respiratory/Chest: Positive for: Decreased Breath Sounds, Rhonchi (bilateral), Tachypneic. Negative for: Accessory Muscle Use, Wheezes Cardiovascular: Positive for: Regular Rate and Rhythm (Paced), Murmurs ( systolic murmur), Peripheal Pulses Present. Negative for: Rub Abdomen: Positive for: Normal Bowel Sounds. Negative for: Tenderness, Distention Upper Extremity: Positive for: Edema (mostly LUE) Lower Extremity: Positive for: Edema. Negative for: CALF TENDERNESS, Cyanosis Neurological: Positive for: Other (lethergic, no response to verbal stimuli) Skin: Positive for: Warm, Pale. Negative for: Rashes Psychiatric: Positive for: Lethargic - Medications Active Medications: Active Medications Generic Name Dose Route Start Last Admin Trade Name Freq PRN Reason Stop Dose Admin Acetylcysteine 2 ml 06/02/17 20:00 06/08/17 07:34 Mucomyst 10% 4ml IH 2 ml RBID [facility] Administration Apixaban 2.5 mg 05/27/17 17:45 06/05/17 16:09 Eliquis PO 2.5 mg BID [facility] Administration Protocol Carvedilol 3.125 mg 05/23/17 21:00 06/08/17 08:40 Coreg PO Not Given Q12 [facility] Home Med 1 drop 05/24/17 17:00 06/08/17 08:40 Cyclosporine [Restasis] BOTHEYES 1 drop BID [facility] Administration Home Med 1 drop 05/24/17 17:00 06/08/17 08:39 Dorzolamide 2%/Timolol 0.5% [Cosopt 2%-0.5% Opht] EACHEYE 1 drop BID [facility] Administration Home Med 1 drop 05/24/17 22:00 06/07/17 21:53 Tafluprost/Pf [Zioptan 0.0015% Eye Drops] EACHEYE 1 drop HS [facility] Administration Hydrocortisone 1 applic 05/24/17 17:00 06/08/17 08:41 Anusol-Hc MA 1 applic BID [facility] Administration Piperacillin Sod/Tazobactam Sod 2.25 gm in 50 mls @ 50 mls/hr 06/04/17 16:00 06/08/17 03:25 Zosyn 2.25 Gm Iv Premix IVPB 50 mls/hr Q12H [facility] Administration Dobutamine HCl/Dextrose 500 mg in 250 mls @ 17.044 mls/hr 06/08/17 03:22 03:58 Dobutamine/Dextrose 5% 500mg/250ml IV 17.044 mls/hr .[id number] [facility] Administration Protocol 15 MCG/KG/MIN Insulin Detemir 8 units 06/01/17 09:00 06/06/17 08:39 Levemir SC 8 units DAILY [facility] Administration Insulin Human Regular 0 units 05/25/17 16:30 06/08/17 06:38 Humulin R SC Not Given ACHS [facility] Protocol Levalbuterol HCl 0.63 mg 05/23/17 21:00 06/08/17 07:34 Xopenex INH 0.63 mg RQ8 [facility] Administration Levalbuterol HCl 0.63 mg 05/24/17 12:40 06/02/17 19:39 Xopenex INH 0.63 mg RQ8 PRN Administration Shortness of Breath Morphine Sulfate 1 mg 06/04/17 09:46 06/08/17 08:38 Morphine IVP 1 mg Q4 PRN Administration Agitation Morphine Sulfate 2 mg 06/05/17 19:25 Morphine IVP Q2 PRN Pain, Mild (1-3) Pantoprazole Sodium 40 mg 06/05/17 09:00 06/08/17 08:39 Protonix Inj IVP 40 mg DAILY [facility] Administration - Patient Studies Lab Studies: Lab Studies 06/08/17 06/07/17 06/07/17 Range/Units 05:38 21:34 19:12 pO2 (30-55) mm/Hg ABG Carboxyhemoglobin (0.5-1.5) % POC ABG HHb (Measured) (0.0-5.0) % ABG Methemoglobin (0.0-3.0) % VBG pH (7.32-7.43) VBG pCO2 (40-60) mmHg VBG HCO3 mmol/L VBG Total CO2 (22-28) mmol/L VBG O2 Sat (Calc) (40-65) % VBG Base Excess (0.0-2.0) mmol/L VBG Hgb O2 Saturation (95.0-98.0) % VBG Potassium (3.6-5.2) mmol/L Hemoglobin (11.7-17.4) g/dL Sodium (132-148) mmol/L Chloride (98-107) mmol/L Glucose (65-105) mg/dL Lactate (0.7-2.1) mmol/L FiO2 % Blood Gas Comments Crit Value Called To Crit Value Called By Crit Value Read Back Blood Gas Notified Time POC Glucose (mg/dL) 208 H 246 H (65-110) mg/dL Phosphorus 4.2 (2.5-4.5) mg/dl Magnesium 2.2 (1.6-2.3) MG/DL Venous Blood Potassium (3.6-5.2) mmol/L 06/07/17 06/07/17 06/07/17 Range/Units 16:19 12:51 11:16 pO2 61 H 45 (30-55) mm/Hg ABG Carboxyhemoglobin 0.8 (0.5-1.5) % POC ABG HHb (Measured) 19.2 H (0.0-5.0) % ABG Methemoglobin 1.7 (0.0-3.0) % VBG pH 7.20 L 7.21 L (7.32-7.43) VBG pCO2 88 H* 84 H* (40-60) mmHg VBG HCO3 27.2 27.7 mmol/L VBG Total CO2 (22-28) mmol/L VBG O2 Sat (Calc) 91.5 H 80.3 H (40-65) % VBG Base Excess 3.4 H 4.0 H (0.0-2.0) mmol/L VBG Hgb O2 Saturation 78.2 L (95.0-98.0) % VBG Potassium (3.6-5.2) mmol/L Hemoglobin 9.9 L (11.7-17.4) g/dL Sodium (132-148) mmol/L Chloride (98-107) mmol/L Glucose (65-105) mg/dL Lactate (0.7-2.1) mmol/L FiO2 % Blood Gas Comments Crit Value Called To Dr lencho marino Crit Value Called By Ludin Crit Value Read Back Y Blood Gas Notified Time 1621 POC Glucose (mg/dL) 180 H (65-110) mg/dL Phosphorus (2.5-4.5) mg/dl Magnesium (1.6-2.3) MG/DL Venous Blood Potassium (3.6-5.2) mmol/L 06/07/17 06/06/17 Range/Units 11:12 12:00 pO2 31 (30-55) mm/Hg ABG Carboxyhemoglobin (0.5-1.5) % POC ABG HHb (Measured) (0.0-5.0) % ABG Methemoglobin (0.0-3.0) % VBG pH 7.31 L (7.32-7.43) VBG pCO2 71 H* (40-60) mmHg VBG HCO3 30.4 mmol/L VBG Total CO2 37.9 H (22-28) mmol/L VBG O2 Sat (Calc) 63.3 (40-65) % VBG Base Excess 7.8 H (0.0-2.0) mmol/L VBG Hgb O2 Saturation (95.0-98.0) % VBG Potassium 3.5 L (3.6-5.2) mmol/L Hemoglobin (11.7-17.4) g/dL Sodium 138.0 (132-148) mmol/L Chloride 103.0 (98-107) mmol/L Glucose 120 H (65-105) mg/dL Lactate 0.9 (0.7-2.1) mmol/L FiO2 70.0 % Blood Gas Comments [id number] lpm /70% Crit Value Called To Pao wall r.n. Crit Value Called By Chiqui Tenoriot Value Read Back N Blood Gas Notified Time 2112 POC Glucose (mg/dL) 164 H (65-110) mg/dL Phosphorus (2.5-4.5) mg/dl Magnesium (1.6-2.3) MG/DL Venous Blood Potassium 3.5 L (3.6-5.2) mmol/L Laboratory Results - last 24 hr 06/06/17 06/07/17 06/07/17 12:00 11:12 11:16 pO2 31 45 ABG Carboxyhemoglobin 0.8 POC ABG HHb (Measured) 19.2 H ABG Methemoglobin 1.7 VBG pH 7.31 L 7.21 L VBG pCO2 71 H* 84 H* VBG HCO3 30.4 27.7 VBG Total CO2 37.9 H VBG O2 Sat (Calc) 63.3 80.3 H VBG Base Excess 7.8 H 4.0 H VBG Hgb O2 Saturation 78.2 L VBG Potassium 3.5 L Hemoglobin 9.9 L Sodium 138.0 Chloride 103.0 Glucose 120 H Lactate 0.9 FiO2 70.0 Blood Gas Comments [id number] lpm /70% Crit Value Called To Pao marino Crit Value Called By [facility] Crit Value Read Back N Y Blood Gas Notified Time 2112 1620 POC Glucose (mg/dL) 164 H Phosphorus Magnesium Venous Blood Potassium 3.5 L 06/07/17 06/07/17 06/07/17 12:51 16:19 19:12 pO2 61 H ABG Carboxyhemoglobin POC ABG HHb (Measured) ABG Methemoglobin VBG pH 7.20 L VBG pCO2 88 H* VBG HCO3 27.2 VBG Total CO2 VBG O2 Sat (Calc) 91.5 H VBG Base Excess 3.4 H VBG Hgb O2 Saturation VBG Potassium Hemoglobin Sodium Chloride Glucose Lactate FiO2 Blood Gas Comments Crit Value Called To Crit Value Called By Crit Value Read Back Blood Gas Notified Time POC Glucose (mg/dL) 180 H Phosphorus 4.2 Magnesium 2.2 Venous Blood Potassium 06/07/17 06/08/17 21:34 05:38 pO2 ABG Carboxyhemoglobin POC ABG HHb (Measured) ABG Methemoglobin VBG pH VBG pCO2 VBG HCO3 VBG Total CO2 VBG O2 Sat (Calc) VBG Base Excess VBG Hgb O2 Saturation VBG Potassium Hemoglobin Sodium Chloride Glucose Lactate FiO2 Blood Gas Comments Crit Value Called To Crit Value Called By Crit Value Read Back Blood Gas Notified Time POC Glucose (mg/dL) 246 H 208 H Phosphorus Magnesium Venous Blood Potassium Fingerstick Blood Sugar Results: 208 Critical Care Progress Note - Nutrition Nutrition: Nutrition Category Date Time Status Dysphagia/Modified Consistency Diet [DIET] Diets 06/03/17 Breakfast Active Assessment/Plan - Assessment and Plan (Free Text) Assessment: A/P Respiratory failure, CHF, cardiomyopathy, A Fib, anemia, thrombocytopenia, renal insufficiency, COPD - Continue meds - Pulmonary toilets - Cardiology follow up - O2 supplement - Poor prognosis
[2017-06-08] MEDS: Dextrose 5%/0.9% NS 1,000 ML IV SCH (14:16)
[2017-06-08] MEDS: TAFLUPROST EACHEYE SCH (22:23)
[2017-06-09] MEDS: Piperacill/Tazo 2.25gm in Dex 2.25 GM/50 ML BAG IVPB SCH ×2 (03:22→16:53)
[2017-06-09 05:40] LABS: HEMATOCRIT 28.6 % (34.0-47.0); MEAN CELL VOLUME 103.9 fl (81.0-99.0); MEAN CORPUSCULAR HEMOGLOBIN 31.4 pg (27.0-31.0); MEAN CORPUSCULAR HGB CONC 30.2 g/dL (33.0-37.0); RED CELL DISTRIBUTION WIDTH 18.1 % (11.5-14.5); WHITE BLOOD COUNT 9.2 K/uL (4.8-10.8)
[2017-06-09 06:08] LABS: CALCIUM 8.8 mg/dL (8.4-10.2)
[2017-06-09] MEDS: Insulin Regular 100 units/ml SC SCH ×4 (06:34→22:00)
[2017-06-09] MEDS: Acetylcysteine 10% 4 ML IH SCH ×3 (07:16→19:52)
[2017-06-09] MEDS: Levalbuterol 0.63 MG/3 ML Inhal Soln UD INH SCH ×3 (07:16→23:50)
--- NOTE | 2017-06-09 08:28 | CP.PCM.PN ---
Subjective - Date & Time of Evaluation Date of Evaluation: 06/09/17 Time of Evaluation: 08:10 - Subjective Subjective: Events over the weekend noted Feeble responses to loud calling In no discomfort Continues to display declining renal function and ventilatory capacity Hypoxic in spite of increasing FiO2/ Hypercapnoea and acidosis noted Had a burst of VT yesterday and shows multiform PVCs today (some couplets, no sustained ectopy) BP 84/60 mm Hg (with pressors) Pulse ox varies 89-96% Scanty urine out put Azotemia continues to worsen (BUN/Creatinin 75/2.5Mg%) K+ normal Mild thrombocytopenia ( PLTLT count 107K) Pt occassionally shows Chyne -Malcolm resp pattern Pt's son in attendence during examination He understands the implications of these findings A DNR request is in place and AICD has been disabled Objective - Vital Signs/Intake and Output Vital Signs (last 24 hours): Temp Pulse Resp BP Pulse Ox 97.4 F L 78 22 111/66 92 L 06/09/17 04:00 06/09/17 06:00 06/09/17 08:05 06/09/17 06:00 06/09/17 06:00 Intake and Output: 06/09/17 06/09/17 06:59 18:59 Intake Total 791 Output Total 275 Balance 516 - Medications Medications: Current Medications Acetylcysteine (Mucomyst 10% 4ml) 2 ml IH RBID [facility] Last Admin: 06/09/17 07:16 Dose: 2 ml Apixaban (Eliquis) 2.5 mg PO BID [facility] PRN Reason: Protocol Last Admin: 06/05/17 16:09 Dose: 2.5 mg Carvedilol (Coreg) 3.125 mg PO Q12 [facility] Last Admin: 06/08/17 20:19 Dose: Not Given Home Med (Cyclosporine [Restasis]) 1 drop BOTHEYES BID [facility] Last Admin: 06/08/17 18:18 Dose: 1 drop Home Med (Dorzolamide 2%/Timolol 0.5% [Cosopt 2%-0.5% Opht]) 1 drop EACHEYE BID [facility] Last Admin: 06/08/17 18:18 Dose: 1 drop Home Med (Tafluprost/Pf [Zioptan 0.0015% Eye Drops]) 1 drop EACHEYE HS [facility] Last Admin: 06/08/17 22:23 Dose: Not Given Hydrocortisone (Anusol-Hc) 1 applic SC BID [facility] Last Admin: 06/08/17 18:18 Dose: 1 applic Piperacillin Sod/Tazobactam Sod (Zosyn 2.25 Gm Iv Premix) 2.25 gm in 50 mls @ 50 mls/hr IVPB Q12H [facility] Last Admin: 06/09/17 03:22 Dose: 50 mls/hr Dobutamine HCl/Dextrose (Dobutamine/Dextrose 5% 500mg/250ml) 500 mg in 250 mls @ 17.044 mls/hr IV .[id number] [facility]; 15 MCG/KG/MIN PRN Reason: Protocol Last Admin: 06/08/17 22:27 Dose: 17.044 mls/hr Insulin Detemir (Levemir) 8 units SC DAILY [facility] Last Admin: 06/06/17 08:39 Dose: 8 units Insulin Human Regular (Humulin R) 0 units SC ACHS [facility] PRN Reason: Protocol Last Admin: 06/09/17 06:34 Dose: Not Given Levalbuterol HCl (Xopenex) 0.63 mg INH RQ8 [facility] Last Admin: 06/09/17 07:16 Dose: 0.63 mg Levalbuterol HCl (Xopenex) 0.63 mg INH RQ8 PRN PRN Reason: Shortness of Breath Last Admin: 06/02/17 19:39 Dose: 0.63 mg Morphine Sulfate (Morphine) 1 mg IVP Q4 PRN PRN Reason: Agitation Last Admin: 06/09/17 06:10 Dose: 1 mg Morphine Sulfate (Morphine) 2 mg IVP Q2 PRN PRN Reason: Pain, Mild (1-3) Pantoprazole Sodium (Protonix Inj) 40 mg IVP DAILY [facility] Last Admin: 06/08/17 08:39 Dose: 40 mg - Labs Labs: 06/09/17 04:15 06/09/17 04:15 PT 16.0 Seconds (9.8-13.1) H 05/28/17 04:55 INR 1.5 (0.9-1.2) H 05/28/17 04:55 APTT 34.3 Seconds (25.6-37.1) 05/28/17 04:55
--- NOTE | 2017-06-09 08:49 | PN ---
ENDO FOLLOWUP NOTE DATE: LOCATION: Room #421 in ICU. SUBJECTIVE: This is an 87-year-old female with advanced COPD and congestive heart failure, on high dose oxygen delivery, currently poorly responsive and agitated and is now being followed closely for metabolic management. She has been taken off all oral hypoglycemic therapy as noted. Her glycemic levels are fluctuating but much improved at this time and have ranged from 113-180 mg/dl. Her latest chemistry showed a BUN of 72, sodium 144, potassium 3.3, chloride 100, CO2 of 31, glucose 115 and creatinine 2.4. So at this time, we will continue the long-acting basal insulin with Levemir given as 8 units subcutaneous once daily as ordered. However, because of the near optimal metabolic control at this time, they have decided to actually hold the basal insulin as ordered. She is still on a very low dose regular insulin coverage as indicated. We will obtain serial chemistry and supplement accordingly needed. Lauryn Chandra MD
[2017-06-09] MEDS: Hydrocortisone 2.5% (Rectal) CREAM PR SCH ×2 (09:13→16:51)
[2017-06-09] MEDS: Patient's Own Med (Dorzolamide 2%/Timolol 0.5% [Cosopt 2%-0.5% Opht] 1 DROP) EACHEYE SCH ×2 (09:13→16:52)
[2017-06-09] MEDS: Patient's Own Med (Cyclosporine [Restasis] 1 DROP) BOTHEYES SCH ×2 (09:17→16:51)
--- NOTE | 2017-06-09 09:28 | CP.PCM.PN ---
Subjective - Date & Time of Evaluation Date of Evaluation: 06/09/17 Time of Evaluation: 09:19 - Subjective Subjective: Preceding noted. Interim events reviewed. Eyes open, but does not follow any commands. No apparent interaction. Periods of Maurice Malcolm breathing. Coughing and apparently swallowing sputum, no expectoration. Rhonchi are present bilaterally. No wheezes. Few dependant rales bilaterally as well. SpO2 remains high 90's this morning. Will request ABG to determine level of CO2. Trial BiPAP mask ventilation once again (if no improvement in wakefulness in 30- 60min D/C). Objective - Vital Signs/Intake and Output Vital Signs (last 24 hours): Temp Pulse Resp BP Pulse Ox 96.3 F L 92 H 22 106/50 L 94 L 06/09/17 08:00 06/09/17 09:11 06/09/17 08:05 06/09/17 09:11 06/09/17 08:00 Intake and Output: 06/08/17 06/09/17 23:59 11:59 Intake Total 663 528 Output Total 100 175 Balance 563 353 - Medications Medications: Current Medications Acetylcysteine (Mucomyst 10% 4ml) 2 ml IH RBID [facility] Last Admin: 06/09/17 07:16 Dose: 2 ml Apixaban (Eliquis) 2.5 mg PO BID [facility] PRN Reason: Protocol Last Admin: 06/05/17 16:09 Dose: 2.5 mg Carvedilol (Coreg) 3.125 mg PO Q12 [facility] Last Admin: 06/09/17 09:11 Dose: Not Given Home Med (Cyclosporine [Restasis]) 1 drop BOTHEYES BID [facility] Last Admin: 06/09/17 09:17 Dose: 1 drop Home Med (Dorzolamide 2%/Timolol 0.5% [Cosopt 2%-0.5% Opht]) 1 drop EACHEYE BID [facility] Last Admin: 06/09/17 09:13 Dose: 1 drop Home Med (Tafluprost/Pf [Zioptan 0.0015% Eye Drops]) 1 drop EACHEYE HS [facility] Last Admin: 06/08/17 22:23 Dose: Not Given Hydrocortisone (Anusol-Hc) [address] BID [facility] Last Admin: 06/09/17 09:13 Dose: 1 applic Piperacillin Sod/Tazobactam Sod (Zosyn 2.25 Gm Iv Premix) 2.25 gm in 50 mls @ 50 mls/hr IVPB Q12H [facility] Last Admin: 06/09/17 03:22 Dose: 50 mls/hr Dobutamine HCl/Dextrose (Dobutamine/Dextrose 5% 500mg/250ml) 500 mg in 250 mls @ 17.044 mls/hr IV .[id number] [facility]; 15 MCG/KG/MIN PRN Reason: Protocol Last Admin: 06/08/17 22:27 Dose: 17.044 mls/hr Insulin Detemir (Levemir) 8 units SC DAILY [facility] Last Admin: 06/06/17 08:39 Dose: 8 units Insulin Human Regular (Humulin R) 0 units SC ACHS [facility] PRN Reason: Protocol Last Admin: 06/09/17 06:34 Dose: Not Given Levalbuterol HCl (Xopenex) 0.63 mg INH RQ8 [facility] Last Admin: 06/09/17 07:16 Dose: 0.63 mg Levalbuterol HCl (Xopenex) 0.63 mg INH RQ8 PRN PRN Reason: Shortness of Breath Last Admin: 06/02/17 19:39 Dose: 0.63 mg Morphine Sulfate (Morphine) 1 mg IVP Q2 PRN PRN Reason: Agitation Pantoprazole Sodium (Protonix Inj) 40 mg IVP DAILY [facility] Last Admin: 06/09/17 09:17 Dose: 40 mg - Labs Labs: 06/09/17 04:15 06/09/17 04:15 PT 16.0 Seconds (9.8-13.1) H 05/28/17 04:55 INR 1.5 (0.9-1.2) H 05/28/17 04:55 APTT 34.3 Seconds (25.6-37.1) 05/28/17 04:55 Assessment and Plan (1) Chronic respiratory failure with hypoxia and hypercapnia Status: Chronic (2) CHF (congestive heart failure) Status: Chronic (3) COPD (chronic obstructive pulmonary disease) Status: Chronic (4) Pulmonary hypertension Status: Chronic
[2017-06-09 09:30] LABS: RBC URINE 4 /hpf (0-3); URINE BACTERIA RARE (<OCC); URINE BILIRUBIN NEGATIVE (NEGATIVE); URINE BLOOD SMALL (NEGATIVE); URINE COLOR YELLOW (YELLOW); URINE GLUCOSE (UA) NEG (Normal); URINE KETONE NEGATIVE (NEGATIVE); URINE LEUKOCYTE ESTERASE SMALL Leu/uL (Negative); URINE PROTEIN 30 mg/dL (NEGATIVE); URINE UROBILINOGEN 0.2-1.0 mg/dL (0.2-1.0); WBC CLUMPS FEW /hpf; WBC URINE 13 /hpf (0-5)
[2017-06-09 09:33] LABS: URINE CALCIUM OXALATE CRYSTALS FEW /hpf (<OCC)
[2017-06-09 09:59] LABS: ABG ALLEN TEST YES; ARTERIAL BLOOD FLOW 30; ARTERIAL BLOOD GAS HCO3 27.6 mmol/L (21-28); ARTERIAL BLOOD GAS MODE HIGH FLOW LPM; ARTERIAL BLOOD GAS O2 CONTENT 12.8 ML/dL (15-23); ARTERIAL BLOOD GAS PH 7.23 (7.35-7.45); ARTERIAL BLOOD GAS PO2 145 mm/Hg (80-100); ARTERIAL BLOOD HGB O2 SAT 96.9 % (95.0-98.0); CARBOXYHEMOGLOBIN 0.7 % (0.5-1.5); HHB 1.3 % (0.0-5.0); METHEMOGLOBIN 1.1 % (0.0-3.0)
--- NOTE | 2017-06-09 18:40 | RAD ---
PROCEDURE: CHEST RADIOGRAPH, 1 VIEW HISTORY: pleural effusion on right base COMPARISON: 06/05/2017. FINDINGS: LUNGS: There is worsening right lower lobe collapse. The left lung is clear. Mild pulmonary venous congestion PLEURA: Suspect small right pleural effusion. No pneumothorax or left pleural fluid seen. CARDIOVASCULAR: There is stable cardiomegaly. Atherosclerotic aortic arch calcifications are present. Status post CABG. There is stable position of left-sided pacemaker. OSSEOUS STRUCTURES: No significant abnormalities. VISUALIZED UPPER ABDOMEN: Normal. OTHER FINDINGS: None. IMPRESSION: Worsening right lower lobe collapse. Underlying pneumonia cannot be excluded. Persistent right pleural effusion. Follow-up is advised
--- NOTE | 2017-06-09 19:36 | PN ---
ENDOCRINOLOGY FOLLOWUP NOTE DATE: LOCATION: Room 421, ICU. SUBJECTIVE: This is an 87-year-old female with recent admission for congestive heart failure and supervening advanced COPD and is now being followed closely for metabolic management. She also was clinically and hemodynamically deteriorated at this time as noted. The latest chemistry showed a BUN of 75, sodium 142, potassium 4.0, chloride 103, CO2 of 29, glucose 159 and creatinine 2.5. Her glucose levels have ranged from 193 to 235 mg/dL. They actually have held off her basal insulin, which was ordered as Levemir at 8 units subq at 10 a.m. daily as ordered. We will continue the low-dose correction scale using Humalog insulin as given. We concur with the present medical management with supportive and comfort measures as given. We will follow with you. Lauryn Chandra MD
[2017-06-09] MEDS: TAFLUPROST EACHEYE SCH (22:00)
[2017-06-10] MEDS: Piperacill/Tazo 2.25gm in Dex 2.25 GM/50 ML BAG IVPB SCH ×2 (04:21→16:14)
[2017-06-10] MEDS: Insulin Regular 100 units/ml SC SCH ×3 (06:57→16:12)
[2017-06-10] MEDS: Levalbuterol 0.63 MG/3 ML Inhal Soln UD INH SCH ×2 (07:42→19:29)
[2017-06-10] MEDS: Acetylcysteine 10% 4 ML IH SCH ×2 (07:42→19:30)
--- NOTE | 2017-06-10 08:12 | CP.PCM.PN ---
Subjective - Date & Time of Evaluation Date of Evaluation: 06/10/17 Time of Evaluation: 07:45 - Subjective Subjective: Mildly restless, unaware of her surroundings Partially open eyes, does not follow commands In no discomfort Did not tolerate trial of BiPAP, back on HFNC for O2 supplement (FiO2 of 80%) VVI paced rhythm BP 100/70 mm Hg (with pressors) Coarse crepitations + bilat JVP flat, extremities slightly cold Yesterday's ABGs again reflect severe ventilatory insufficiency Chest x-ray findings noted Son at bed side during my visit. Explained findings to him. Discussed feeding with pt's daughter yesterday (NG tube will expose her to further aspiration) Also at this point will have little impact on clinical course Prognosis is poor Objective - Vital Signs/Intake and Output Vital Signs (last 24 hours): Temp Pulse Resp BP Pulse Ox 96.3 F L 78 16 106/39 L 99 06/10/17 04:00 06/10/17 06:00 06/10/17 07:43 06/10/17 06:00 06/10/17 06:00 Intake and Output: 06/10/17 06/10/17 06:59 18:59 Intake Total 804 Output Total 225 Balance 579 - Medications Medications: Current Medications Acetylcysteine (Mucomyst 10% 4ml) 2 ml IH RBID [facility] Last Admin: 06/10/17 07:42 Dose: 2 ml Apixaban (Eliquis) 2.5 mg PO BID [facility] PRN Reason: Protocol Last Admin: 06/05/17 16:09 Dose: 2.5 mg Carvedilol (Coreg) 3.125 mg PO Q12 [facility] Last Admin: 06/09/17 21:00 Dose: Not Given Home Med (Cyclosporine [Restasis]) 1 drop BOTHEYES BID [facility] Last Admin: 06/09/17 16:51 Dose: Not Given Home Med (Dorzolamide 2%/Timolol 0.5% [Cosopt 2%-0.5% Opht]) 1 drop EACHEYE BID [facility] Last Admin: 06/09/17 16:52 Dose: Not Given Home Med (Tafluprost/Pf [Zioptan 0.0015% Eye Drops]) 1 drop EACHEYE HS [facility] Last Admin: 06/09/17 22:00 Dose: Not Given Hydrocortisone (Anusol-Hc) 1 applic ID BID [facility] Last Admin: 06/09/17 16:51 Dose: 1 applic Piperacillin Sod/Tazobactam Sod (Zosyn 2.25 Gm Iv Premix) 2.25 gm in 50 mls @ 50 mls/hr IVPB Q12H [facility] Last Admin: 06/10/17 04:21 Dose: 50 mls/hr Dobutamine HCl/Dextrose (Dobutamine/Dextrose 5% 500mg/250ml) 500 mg in 250 mls @ 17.044 mls/hr IV .[id number] [facility]; 15 MCG/KG/MIN PRN Reason: Protocol Last Admin: 06/08/17 22:27 Dose: 17.044 mls/hr Insulin Detemir (Levemir) 8 units SC DAILY [facility] Last Admin: 06/06/17 08:39 Dose: 8 units Insulin Human Regular (Humulin R) 0 units SC ACHS [facility] PRN Reason: Protocol Last Admin: 06/10/17 06:57 Dose: Not Given Levalbuterol HCl (Xopenex) 0.63 mg INH RQ8 [facility] Last Admin: 06/10/17 07:42 Dose: 0.63 mg Levalbuterol HCl (Xopenex) 0.63 mg INH RQ8 PRN PRN Reason: Shortness of Breath Last Admin: 06/02/17 19:39 Dose: 0.63 mg Morphine Sulfate (Morphine) 1 mg IVP Q2 PRN PRN Reason: Agitation Last Admin: 06/10/17 06:42 Dose: 1 mg Pantoprazole Sodium (Protonix Inj) 40 mg IVP DAILY [facility] Last Admin: 06/09/17 09:17 Dose: 40 mg - Labs Labs: 06/09/17 04:15 06/09/17 04:15 PT 16.0 Seconds (9.8-13.1) H 05/28/17 04:55 INR 1.5 (0.9-1.2) H 05/28/17 04:55 APTT 34.3 Seconds (25.6-37.1) 05/28/17 04:55
[2017-06-10] MEDS: Patient's Own Med (Dorzolamide 2%/Timolol 0.5% [Cosopt 2%-0.5% Opht] 1 DROP) EACHEYE SCH ×2 (08:52→16:12)
[2017-06-10] MEDS: Hydrocortisone 2.5% (Rectal) CREAM PR SCH ×2 (08:55→16:10)
--- NOTE | 2017-06-10 09:03 | PN ---
DATE: 06/09/2017 CRITICAL CARE PROGRESS NOTE LOCATION: The patient is in ICU, bed 421. SUBJECTIVE: The patient is seen and examined at the bedside. Discussed in detail in multidisciplinary rounds. PAST MEDICAL HISTORY, PAST SURGICAL HISTORY, SOCIAL HISTORY: Reviewed. Events overnight on high flow nasal oxygen at 30 L, 80% saturating 89%-94%. The patient AICD is disabled. Noted to have nonsustained V-tach with couplets, on Dobutrex at 15 mcg/kg, on morphine intermittently for comfort care. This morning, the patient is alert, but not able to follow commands, appears restless at times. Seen by pulmonary consult. See note to try BiPAP, as ABG shows CO2 retention. PHYSICAL EXAMINATION: VITAL SIGNS: Temperature 96.3, heart rate 92 irregular, blood pressure 106/50, respiratory rate 15 to 22, thoracoabdominal. Intake 1271, output 275. Positive balance 9996. Weight 87 pounds. HEAD, EYES, EARS, NOSE, AND THROAT: Pupils are reactive. Conjunctivae pink. Sclerae white. NECK: Supple. CHEST: Bilateral rhonchi. No audible wheeze. Fine crepitation at the base. HEART: Rhythm is irregular. ABDOMEN: Bowel sounds present. Soft. EXTREMITIES: Dependent edema. Dorsalis pedis are plus and symmetric, reduced in intensity. NEUROLOGIC: The patient is awake with eyes open at times. Does not follow commands. No response to verbal stimuli. Moves all upper and lower extremities. CURRENT MEDICATIONS: Levalbuterol 0.63 mg q.8 hours p.r.n., acetylcysteine 2 mL via nebulizer twice daily, Eliquis 2.5 mg twice daily, Coreg 3.125 mg q.12 hours, Dobutrex at 15 mcg/kg/minute. HOME MEDICATIONS: Levemir at 8 units subcutaneous daily, insulin human regular based on sliding scale, morphine 1 mg IV q.2 p.r.n., Protonix 40 IV daily, Zosyn at 2.25 g IV q.12 hours. LABORATORY DATA: WBC 9.2, hemoglobin 8.6, hematocrit 28.6, platelet count 107. ABG; pH of 7.23, pCO2 of 77, pO2 of 145, and saturation 98.7 on high flow nasal oxygen 30 L with 80% FiO2 consistent with hypercapnia, hypoxemia, wide AA gradient. SMA-7. Sodium 142, potassium 4, chloride 103, CO2 of 29, blood urea nitrogen 75, and creatinine 2.5. Random glucose 159, calcium 8.8. Urinalysis; wbc few, rbc 4.Cxr shows blunting of right base , ? recurrent plf vs atlectasis, t aspiration Microbiology; urine culture positive for Enterococcus faecalisis. No chest x-ray available from this morning. IMPRESSION: 1. Neurologic: Toxic, metabolic, septic encephalopathy. Remains wakeful, but does not follow commands, on morphine p.r.n. for agitation. 2. Pulmonary: Hypercapnic hypoxic respiratory failure on high flow nasal oxygen, appreciate pulmonary followup. Recommendations for trial of bilevel positive airway pressure to see whether mental status improves with correction of respiratory acidosis. Continue Xopenex and acetylcysteine. 3. Cardiac: Status post brief episode off and on sustained ventricular tachycardia, defibrillator is currently disabled. We will continue Dobutrex, Coreg 3.125 mg q.12 hours, Eliquis 2.5 mg twice daily. 4. Endocrine: Diabetes mellitus type 2, blood sugar is less than 159, 235 on Levemir and coverage. 5. Hematology: Anemia from chronic disease, thrombocytopenia, currently stable. 6. Infectious disease: Aspiration pneumonia, urinary tract infection, currently on Zosyn 2.25 g IV q.12 hours, appreciate consult from Dr. Florentin Chaparro. Given multiorgan failure, prognosis remains guarded. Currently DNR/DNI. Pursuing more comfort measures as recommended by consultants cardiology, pulmonary. Family is aware of the poor prognosis. We will continue with comfort care. Terrance Astudillo MD MTDD
[2017-06-10] MEDS ORDERED: Chlorhexidine Gluconate 1 APPL/PKT TP ONE ×3 (09:14→16:56)
[2017-06-10] MEDS: Patient's Own Med (Cyclosporine [Restasis] 1 DROP) BOTHEYES SCH ×2 (09:35→16:11)
--- NOTE | 2017-06-10 09:52 | CP.PCM.PN ---
Subjective - Date & Time of Evaluation Date of Evaluation: 06/10/17 Time of Evaluation: 09:45 - Subjective Subjective: Interim events and EMR entries noted. Both son and one daughter present during exam. Able to successfully perform naso-tracheal suctioning today with return of a moderate amount of thick and purulent sputum. Breath sounds did noticeably improve from pre-to-post suctioning. Better air entry in to the right lung with bronchial breath sounds well heard. Rhonchi are still noted, but diminished from earlier (on the right). Less pronounced rhonchi are present on the left as well. No audible wheeze on either side. Specimen was collected and sent to the lab for culture. HFNC reduced to 65% and 25L w/o and drop in SpO2 noted. Yesterday's CXR showed RLL atelectasis similar to a film done earlier last week. Will consider repeart NT suctioning, if able, again in AM. Prognosis remains grave. Objective - Vital Signs/Intake and Output Vital Signs (last 24 hours): Temp Pulse Resp BP Pulse Ox 96.3 F L 78 16 106/39 L 99 06/10/17 04:00 06/10/17 06:00 06/10/17 07:43 06/10/17 06:00 06/10/17 06:00 Intake and Output: 06/09/17 06/10/17 23:59 11:59 Intake Total 906 536 Output Total 300 225 Balance 606 311 - Medications Medications: Current Medications Acetylcysteine (Mucomyst 10% 4ml) 2 ml IH RBID [facility] Last Admin: 06/10/17 07:42 Dose: 2 ml Apixaban (Eliquis) 2.5 mg PO BID [facility] PRN Reason: Protocol Last Admin: 06/05/17 16:09 Dose: 2.5 mg Carvedilol (Coreg) 3.125 mg PO Q12 [facility] Last Admin: 06/10/17 08:55 Dose: Not Given Home Med (Cyclosporine [Restasis]) 1 drop BOTHEYES BID [facility] Last Admin: 06/09/17 16:51 Dose: Not Given Home Med (Dorzolamide 2%/Timolol 0.5% [Cosopt 2%-0.5% Opht]) 1 drop EACHEYE BID [facility] Last Admin: 06/10/17 08:52 Dose: 1 drop Home Med (Tafluprost/Pf [Zioptan 0.0015% Eye Drops]) 1 drop EACHEYE HS [facility] Last Admin: 06/09/17 22:00 Dose: Not Given Hydrocortisone (Anusol-Hc) 1 applic [place] BID [facility] Last Admin: 06/10/17 08:55 Dose: 1 applic Piperacillin Sod/Tazobactam Sod (Zosyn 2.25 Gm Iv Premix) 2.25 gm in 50 mls @ 50 mls/hr IVPB Q12H [facility] Last Admin: 06/10/17 04:21 Dose: 50 mls/hr Dobutamine HCl/Dextrose (Dobutamine/Dextrose 5% 500mg/250ml) 500 mg in 250 mls @ 17.044 mls/hr IV .[id number] [facility]; 15 MCG/KG/MIN PRN Reason: Protocol Last Admin: 06/08/17 22:27 Dose: 17.044 mls/hr Insulin Detemir (Levemir) 8 units SC DAILY [facility] Last Admin: 06/06/17 08:39 Dose: 8 units Insulin Human Regular (Humulin R) 0 units SC ACHS [facility] PRN Reason: Protocol Last Admin: 06/10/17 06:57 Dose: Not Given Levalbuterol HCl (Xopenex) 0.63 mg INH RQ8 [facility] Last Admin: 06/10/17 07:42 Dose: 0.63 mg Levalbuterol HCl (Xopenex) 0.63 mg INH RQ8 PRN PRN Reason: Shortness of Breath Last Admin: 06/02/17 19:39 Dose: 0.63 mg Morphine Sulfate (Morphine) 1 mg IVP Q2 PRN PRN Reason: Agitation Last Admin: 06/10/17 06:42 Dose: 1 mg Pantoprazole Sodium (Protonix Inj) 40 mg IVP DAILY [facility] Last Admin: 06/10/17 08:55 Dose: 40 mg - Labs Labs: 06/09/17 04:15 06/09/17 04:15 PT 16.0 Seconds (9.8-13.1) H 05/28/17 04:55 INR 1.5 (0.9-1.2) H 05/28/17 04:55 APTT 34.3 Seconds (25.6-37.1) 09/13/17 04:55 Assessment and Plan (1) Chronic respiratory failure with hypoxia and hypercapnia Status: Chronic (2) CHF (congestive heart failure) Status: Chronic (3) COPD (chronic obstructive pulmonary disease) Status: Chronic (4) Pulmonary hypertension Status: Chronic (5) Pneumonia Assessment & Plan: Right lower lobe atelectasis with nosocomial pneumonia. Specimen collected and sent to lab for C&S. Status: Acute
[2017-06-10 10:21] LABS: ALB/GLOB RATIO 0.9 (1.0-2.1); BILIRUBIN,TOTAL 0.9 mg/dl (0.2-1.3); CALCIUM 8.8 mg/dL (8.4-10.2); POTASSIUM 3.7 MMOL/L (3.6-5.0); TOTAL PROTEIN 6.2 G/DL (6.3-8.2)
[2017-06-10 10:24] LABS: BASO % 0.1 % (0.0-2.0); EOS # 0.1 K/uL (0.0-0.7); EOS % 0.8 % (0.0-4.0); HEMATOCRIT 29.8 % (34.0-47.0); LYMPH # 0.1 K/uL (1.0-4.3); LYMPH % 1.7 % (20.0-40.0); MEAN CELL VOLUME 102.7 fl (81.0-99.0); MEAN CORPUSCULAR HEMOGLOBIN 31.3 pg (27.0-31.0); MEAN CORPUSCULAR HGB CONC 30.5 g/dL (33.0-37.0); MEAN PLATELET VOLUME 9.9 fl (7.2-11.7); MONO # 0.5 K/uL (0.0-0.8); MONO % 5.6 % (0.0-10.0); NEUT # 7.5 K/uL (1.8-7.0); NEUT % 91.8 % (50.0-75.0); NRBC % 0.1 % (0.0-0.0); PLATELET COUNT 107 K/uL (130-400); RED CELL DISTRIBUTION WIDTH 18.4 % (11.5-14.5); WHITE BLOOD COUNT 8.2 K/uL (4.8-10.8)
[2017-06-10] MEDS: DOBUTamine 500mg/250ml D5W 500 MG/250 ML BAG IV SCH (10:25)
[2017-06-10 11:45] LABS: NEUTROPHIL 97 % (42-75); TOTAL CELLS COUNTED 100
[2017-06-10 11:48] LABS: GIANT PLATELETS PRESENT; LARGE PLATELETS PRESENT
[2017-06-10] MEDS: Levalbuterol 0.63 MG/3 ML Inhal Soln UD INH PRN (13:30)
[2017-06-10] MEDS ORDERED: Levalbuterol 0.63 MG/3 ML Inhal Soln UD INH ONE (16:46)
--- NOTE | 2017-06-10 19:09 | PN ---
ENDOCRINOLOGY FOLLOWUP NOTE LOCATION: ICU, Room 421 SUBJECTIVE: This is an 87-year-old female with recent uncontrolled type 2 insulin requiring diabetes, now has been taken off all insulin therapy and oral hyperglycemic drug therapy is given. She presented here with congestive heart failure and advanced COPD and is now being followed closely for hemodynamic monitoring in the hospital as noted. Her latest chemistry showed BUN of 66, sodium 149, potassium 3.7, chloride 107, CO2 of 29, glucose 145, creatinine 2.0. Her glucose levels have ranged from 144 to 153 mg/dL. So at this time, we will continue the low-dose correction scale using Humulin regular insulin as ordered. We will titrate incrementally as indicated to optimize metabolic control. We will follow and advise accordingly. Lauryn Chandra MD
[2017-06-11] MEDS: Levalbuterol 0.63 MG/3 ML Inhal Soln UD INH SCH ×2 (00:24→08:12)
[2017-06-11] MEDS: Piperacill/Tazo 2.25gm in Dex 2.25 GM/50 ML BAG IVPB SCH (04:00)
[2017-06-11] MEDS: DOBUTamine 500mg/250ml D5W 500 MG/250 ML BAG IV SCH (04:50)
[2017-06-11 05:34] VITALS: TEMP 98.4
[2017-06-11] MEDS: Insulin Regular 100 units/ml SC SCH (06:11)
[2017-06-11] MEDS: TAFLUPROST EACHEYE SCH (06:14)
--- NOTE | 2017-06-11 07:04 | CP.CCUPN ---
CCU Subjective - Physician Review Subjective (Free Text): Has progressed to 100% oxygen on HFNC, flow at 35 LPM, very unresponsive this AM , even to vigorous tapping, no pain stimulus given. Overnigbht Nurses stated she opened eyes only during routine washing. Other vitals and I/O's reviewed. No fever spikes noted. I/O's in marked positive balance over the last several days, remains oliguric, only 100 ml overnight. ROS: Not obtainable due to lethargy. No other pertinent negs or positives on 10 + system review. PMSFH: Underwent repeat R thoracentesis 2 weeks ago, had same procedure previously on 05/14 also. All Nursing and physician documentation reviewed to date; no new pertinent info noted relevant to current medical problems. MAJOR PROBLEMS: 1. Acute Hypercapneic Resp Failure 2 Decompensated L-CHF / Cardiomyopathy; r/ oed AMI 2. Chronic A fib on AC 3. Chronic Disease Anemia / Thrombocytopenia 4. Azotemia with oliguria / Hypernatremia PLAN: 1. Progressive decline with unclear response if any to current therapeutic measures. 2. BP dipped to 80s systolic overnight, now 106 systolic on Dobutamine 15 mcg /kg/min. CBC parameters unremarkable, last ABG reviewed on 06/09, showing usual hypercarbia and acidosis. 3. Hypernatremic again today, could change IVFs over to more hypotonic solution. BUN/CR has improved, however. 4. Aware that at times, scheduled vibropercussion therapy administered via Pulm Sport bed has been declined by family members when they are present at the bedside. Will discuss with Pulm and PMD regarding measures in attempt to improve aeration of R lung. 5. Patient has self removed PICC several days ago during an agitative episode. Will discuss with family. PMD and other consultants whether if it should be rep[lace. Current peripheral; vein access in RUE is intact and working. 6. Overall, no definitive consensus decision by family members to pursue strict comfort measures. Will discuss again with family regarding any limitations in current mgmt. efforts. CCU Objective - Vital Signs / Intake & Output Vital Signs (Last 4 hours): Vital Signs Temp Pulse Resp BP Pulse Ox 06/11/17 04:41 15 06/11/17 04:00 98.4 F 79 20 96/50 L 96 Intake and Output (Last 8hrs): Intake & Output 06/10/17 06/10/17 06/11/17 14:59 22:59 06:59 Intake Total 518 524 452 Output Total 560 Balance 518 -36 452 Intake: IV 400 468 402 Intake, Piggyback 118 56 50 Output: Urine 560 Urethral (Mackey) 560 - Physical Exam Head: Positive for: Atraumatic, Normocephalic. Negative for: Tenderness, Contusion Pupils: Positive for: PERRL Extroacular Muscles: Positive for: EOMI Conjunctiva: Positive for: Normal. Negative for: Icteric Mouth: Positive for: Moist Mucous Membranes Pharnyx: Positive for: Normal Neck: Positive for: Normal Range of Motion, JVD (prominent venous pulsations naoted). Negative for: Bruit Respiratory/Chest: Positive for: Decreased Breath Sounds, Rhonchi (bilateral). Negative for: Accessory Muscle Use, Wheezes, Tachypneic Cardiovascular: Positive for: Irregular Rhythm (paced with PVCs), Peripheal Pulses Present. Negative for: Rub Abdomen: Positive for: Normal Bowel Sounds. Negative for: Tenderness, Distention Upper Extremity: Positive for: Edema (mostly LUE) Lower Extremity: Positive for: Edema. Negative for: CALF TENDERNESS, Cyanosis Neurological: Positive for: Other (lethargic, no response to verbal stimuli) Skin: Positive for: Warm, Pale. Negative for: Rashes Psychiatric: Positive for: Lethargic - Medications Active Medications: Active Medications Generic Name Dose Route Start Last Admin Trade Name Freq PRN Reason Stop Dose Admin Acetylcysteine 2 ml 06/02/17 20:00 06/10/17 19:30 Mucomyst 10% 4ml IH Not Given RBID [facility] Apixaban 2.5 mg 05/27/17 17:45 06/05/17 16:09 Eliquis PO 2.5 mg BID [facility] Administration Protocol Carvedilol 3.125 mg 05/23/17 21:00 06/10/17 21:00 Coreg PO Not Given Q12 [facility] Home Med 1 drop 05/24/17 17:00 06/10/17 16:11 Cyclosporine [Restasis] BOTHEYES 1 drop BID [facility] Administration Home Med 1 drop 05/24/17 17:00 06/10/17 16:12 Dorzolamide 2%/Timolol 0.5% [Cosopt 2%-0.5% Opht] EACHEYE 1 drop BID [facility] Administration Home Med 1 drop 05/24/17 22:00 06/11/17 06:14 Tafluprost/Pf [Zioptan 0.0015% Eye Drops] EACHEYE Not Given HS [facility] Hydrocortisone 1 applic 05/24/17 17:00 06/10/17 16:10 Anusol-Hc MD 1 applic BID [facility] Administration Piperacillin Sod/Tazobactam Sod 2.25 gm in 50 mls @ 50 mls/hr 06/04/17 16:00 06/11/17 04:00 Zosyn 2.25 Gm Iv Premix IVPB 50 mls/hr Q12H [facility] Administration Dobutamine HCl/Dextrose 500 mg in 250 mls @ 17.044 mls/hr 06/08/17 03:22 06:08 Dobutamine/Dextrose 5% 500mg/250ml IV 17.044 mls/hr .[id number] [facility] Infusion Protocol 15 MCG/KG/MIN Insulin Detemir 8 units 06/01/17 09:00 06/06/17 08:39 Levemir SC 8 units DAILY [facility] Administration Insulin Human Regular 0 units 05/25/17 16:30 06/11/17 06:11 Humulin R SC Not Given ACHS [facility] Protocol Levalbuterol HCl 0.63 mg 05/23/17 21:00 06/11/17 00:24 Xopenex INH 0.63 mg RQ8 [facility] Administration Levalbuterol HCl 0.63 mg 05/24/17 12:40 06/10/17 13:30 Xopenex INH 0.63 mg RQ8 PRN Administration Shortness of Breath Morphine Sulfate 1 mg 06/09/17 09:17 06/10/17 16:50 Morphine IVP 1 mg Q2 PRN Administration Agitation Pantoprazole Sodium 40 mg 06/05/17 09:00 06/10/17 08:55 Protonix Inj IVP 40 mg DAILY [facility] Administration - Patient Studies Lab Studies: Microbiology Studies 06/10/17 09:40 Gram Stain - Preliminary Trachasp Lab Studies 06/11/17 06/10/17 06/10/17 Range/Units 05:40 16:12 12:18 WBC (4.8-10.8) K/uL RBC (3.80-5.20) Mil/uL Hgb (12.0-16.0) g/dL Hct (34.0-47.0) % MCV (81.0-99.0) fl MCH (27.0-31.0) pg MCHC (33.0-37.0) g/dL RDW (11.5-14.5) % Plt Count (130-400) K/uL MPV (7.2-11.7) fl Neut % (Auto) (50.0-75.0) % Lymph % (Auto) (20.0-40.0) % Wetzel % (Auto) (0.0-10.0) % Eos % (Auto) (0.0-4.0) % Baso % (Auto) (0.0-2.0) % Neut # (1.8-7.0) K/uL Lymph # (1.0-4.3) K/uL Wetzel # (0.0-0.8) K/uL Eos # (0.0-0.7) K/uL Baso # (0.0-0.2) K/uL Neutrophils % (Manual) (42-75) % Lymphocytes % (Manual) (20-50) % Monocytes % (Manual) (0-10) % Platelet Estimate (NORMAL) Large Platelets Giant Platelets Hypochromasia (manual) Anisocytosis (manual) Macrocytosis (manual) Sodium (132-148) mmol/l Potassium (3.6-5.0) MMOL/L Chloride (98-107) mmol/L Carbon Dioxide (22-30) mmol/L Anion Gap (10-20) BUN (7-17) mg/dl Creatinine (0.7-1.2) mg/dL Est GFR ( Amer) Est GFR (Non-Af Amer) POC Glucose (mg/dL) 222 H 187 H 144 H (65-110) mg/dL Random Glucose (65-105) mg/dL Calcium (8.4-10.2) mg/dL Total Bilirubin (0.2-1.3) mg/dl AST (14-36) U/L ALT (9-52) U/L Alkaline Phosphatase (38-126) U/L Total Protein (6.3-8.2) G/DL Albumin (3.5-5.0) g/dL Globulin (2.2-3.9) gm/dL Albumin/Globulin Ratio (1.0-2.1) 06/10/17 06/10/17 Range/Units 09:30 09:30 WBC 8.2 (4.8-10.8) K/uL RBC 2.90 L (3.80-5.20) Mil/uL Hgb 9.1 L (12.0-16.0) g/dL Hct 29.8 L (34.0-47.0) % MCV 102.7 H (81.0-99.0) fl MCH 31.3 H (27.0-31.0) pg MCHC 30.5 L (33.0-37.0) g/dL RDW 18.4 H (11.5-14.5) % Plt Count 107 L (130-400) K/uL MPV 9.9 (7.2-11.7) fl Neut % (Auto) 91.8 H (50.0-75.0) % Lymph % (Auto) 1.7 L (20.0-40.0) % Wetzel % (Auto) 5.6 (0.0-10.0) % Eos % (Auto) 0.8 (0.0-4.0) % Baso % (Auto) 0.1 (0.0-2.0) % Neut # 7.5 H (1.8-7.0) K/uL Lymph # 0.1 L (1.0-4.3) K/uL Wetzel # 0.5 (0.0-0.8) K/uL Eos # 0.1 (0.0-0.7) K/uL Baso # 0.0 (0.0-0.2) K/uL Neutrophils % (Manual) 97 H (42-75) % Lymphocytes % (Manual) 1 L (20-50) % Monocytes % (Manual) 2 (0-10) % Platelet Estimate Decreased L (NORMAL) Large Platelets Present Giant Platelets Present Hypochromasia (manual) Slight Anisocytosis (manual) Slight Macrocytosis (manual) Slight Sodium 149 H (132-148) mmol/l Potassium 3.7 (3.6-5.0) MMOL/L Chloride 107 (98-107) mmol/L Carbon Dioxide 29 (22-30) mmol/L Anion Gap 17 (10-20) BUN 66 H (7-17) mg/dl Creatinine 2.0 H (0.7-1.2) mg/dL Est GFR ( Amer) 28 Est GFR (Non-Af Amer) 24 POC Glucose (mg/dL) (65-110) mg/dL Random Glucose 145 H (65-105) mg/dL Calcium 8.8 (8.4-10.2) mg/dL Total Bilirubin 0.9 (0.2-1.3) mg/dl AST 22 (14-36) U/L ALT 24 (9-52) U/L Alkaline Phosphatase 67 (38-126) U/L Total Protein 6.2 L (6.3-8.2) G/DL Albumin 2.9 L (3.5-5.0) g/dL Globulin 3.3 (2.2-3.9) gm/dL Albumin/Globulin Ratio 0.9 L (1.0-2.1) Laboratory Results - last 24 hr 06/10/17 06/10/17 06/10/17 09:30 09:30 12:18 WBC 8.2 RBC 2.90 L Hgb 9.1 L Hct 29.8 L MCV 102.7 H MCH 31.3 H MCHC 30.5 L RDW 18.4 H Plt Count 107 L MPV 9.9 Neut % (Auto) 91.8 H Lymph % (Auto) 1.7 L Wetzel % (Auto) 5.6 Eos % (Auto) 0.8 Baso % (Auto) 0.1 Neut # 7.5 H Lymph # 0.1 L Wetzel # 0.5 Eos # 0.1 Baso # 0.0 Neutrophils % (Manual) 97 H Lymphocytes % (Manual) 1 L Monocytes % (Manual) 2 Platelet Estimate Decreased L Large Platelets Present Giant Platelets Present Hypochromasia (manual) Slight Anisocytosis (manual) Slight Macrocytosis (manual) Slight Sodium 149 H Potassium 3.7 Chloride 107 Carbon Dioxide 29 Anion Gap 17 BUN 66 H Creatinine 2.0 H Est GFR ( Amer) 28 Est GFR (Non-Af Amer) 24 POC Glucose (mg/dL) 144 H Random Glucose 145 H Calcium 8.8 Total Bilirubin 0.9 AST 22 ALT 24 Alkaline Phosphatase 67 Total Protein 6.2 L Albumin 2.9 L Globulin 3.3 Albumin/Globulin Ratio 0.9 L 06/10/17 06/11/17 16:12 05:40 WBC RBC Hgb Hct MCV MCH MCHC RDW Plt Count MPV Neut % (Auto) Lymph % (Auto) Wetzel % (Auto) Eos % (Auto) Baso % (Auto) Neut # Lymph # Wetzel # Eos # Baso # Neutrophils % (Manual) Lymphocytes % (Manual) Monocytes % (Manual) Platelet Estimate Large Platelets Giant Platelets Hypochromasia (manual) Anisocytosis (manual) Macrocytosis (manual) Sodium Potassium Chloride Carbon Dioxide Anion Gap BUN Creatinine Est GFR ( Amer) Est GFR (Non-Af Amer) POC Glucose (mg/dL) 187 H 222 H Random Glucose Calcium Total Bilirubin AST ALT Alkaline Phosphatase Total Protein Albumin Globulin Albumin/Globulin Ratio Radiology Interpretations (Free Text): 06/11/17 07:11 CXR (my interp): near complete opacification of R lung, except small area of R apex, 2' to multilobar atelectasis and effusion. Fingerstick Blood Sugar Results: 187 Review of Systems - Review of Systems Systems not reviewed;Unavailable: Altered Mental Status Critical Care Progress Note - Prophylaxis DVT Prophylaxis DVT: SCDs (and Eliquis) - Nutrition Nutrition: Nutrition Category Date Time Status Dysphagia/Modified Consistency Diet [DIET] Diets 06/03/17 Breakfast Active
[2017-06-11] MEDS: Acetylcysteine 10% 4 ML IH SCH (08:12)
--- NOTE | 2017-06-11 09:21 | RAD ---
HISTORY: pneumonia COMPARISON: 06/09/2017 FINDINGS: LUNGS: Almost complete opacification of right eugenia thorax. This may reflect consolidation and/or pleural effusion. This represents interval change from the prior examination. No left-sided consolidation. PLEURA: No left pleural effusion or pneumothorax. Possible large right pleural effusion. Cannot differentiate clearly from right-sided consolidation. CARDIOVASCULAR: Normal heart size. AICD. Sternotomy wires. OSSEOUS STRUCTURES: No significant abnormalities. VISUALIZED UPPER ABDOMEN: Normal. OTHER FINDINGS: None. IMPRESSION: Almost complete opacification of right eugenia thorax with small amount of residual aerated lung at the apex. This may reflect consolidation from pneumonia/ atelectasis and/or pleural effusion. No other interval change.
--- NOTE | 2017-06-11 09:25 | CP.PCM.PN ---
Subjective - Date & Time of Evaluation Date of Evaluation: 06/11/17 Time of Evaluation: 08:20 - Subjective Subjective: Quite unresponsive to loud calling and shaking Occ restlessness otherwise appears comfortable except for laboured breathing Requires 100% FiO2 to support adequate Pulse ox Paced rhythm with occ PVCs BP 96/64 on pressors Extremities cool to touch Has put out 15 ml of urine in last 2 hrs Chest x-ray today shows virtually complete opacification of Rt lung Pt appears to be in the terminal phase of her chr heart failure and respiratory failure Pt's son who has been in constant attendance understands this and does not wish to artificially prolong her life and suffering with no prospect of returning to a "meaningful" existance. Drs. Mcdowell, Martir and Pratima and her son had a conference call with pt's daughters and the situation was explained to them as well Their queries were answered. It was decided that no invasive procedures (e.g. ventilator, pleural tap etc) will be attempted Pressors will be D/Joe and only pt's comfort will be addressed. Objective - Vital Signs/Intake and Output Vital Signs (last 24 hours): Temp Pulse Resp BP Pulse Ox 98.4 F 79 20 96/50 L 96 06/11/17 04:00 06/11/17 04:00 06/11/17 08:13 06/11/17 04:00 06/11/17 04:00 Intake and Output: 06/11/17 06/11/17 06:59 18:59 Intake Total 720 50 Output Total 20 Balance 720 30 - Medications Medications: Current Medications Acetylcysteine (Mucomyst 10% 4ml) 2 ml IH RBID [facility] Last Admin: 06/11/17 08:12 Dose: Not Given Apixaban (Eliquis) 2.5 mg PO BID [facility] PRN Reason: Protocol Last Admin: 06/05/17 16:09 Dose: 2.5 mg Carvedilol (Coreg) 3.125 mg PO Q12 [facility] Last Admin: 06/10/17 21:00 Dose: Not Given Home Med (Cyclosporine [Restasis]) 1 drop BOTHEYES BID [facility] Last Admin: 06/10/17 16:11 Dose: 1 drop Home Med (Dorzolamide 2%/Timolol 0.5% [Cosopt 2%-0.5% Opht]) 1 drop EACHEYE BID [facility] Last Admin: 06/10/17 16:12 Dose: 1 drop Home Med (Tafluprost/Pf [Zioptan 0.0015% Eye Drops]) 1 drop EACHEYE HS [facility] Last Admin: 06/11/17 06:14 Dose: Not Given Hydrocortisone (Anusol-Hc) 1 applic MI BID [facility] Last Admin: 06/10/17 16:10 Dose: 1 applic Piperacillin Sod/Tazobactam Sod (Zosyn 2.25 Gm Iv Premix) 2.25 gm in 50 mls @ 50 mls/hr IVPB Q12H [facility] Last Admin: 06/11/17 04:00 Dose: 50 mls/hr Dobutamine HCl/Dextrose (Dobutamine/Dextrose 5% 500mg/250ml) 500 mg in 250 mls @ 17.044 mls/hr IV .[id number] [facility]; 15 MCG/KG/MIN PRN Reason: Protocol Last Infusion: 06/11/17 06:08 Dose: 17.044 mls/hr Insulin Detemir (Levemir) 8 units SC DAILY [facility] Last Admin: 06/06/17 08:39 Dose: 8 units Insulin Human Regular (Humulin R) 0 units SC ACHS [facility] PRN Reason: Protocol Last Admin: 06/11/17 06:11 Dose: Not Given Levalbuterol HCl (Xopenex) 0.63 mg INH RQ8 [facility] Last Admin: 06/11/17 08:12 Dose: Not Given Levalbuterol HCl (Xopenex) 0.63 mg INH RQ8 PRN PRN Reason: Shortness of Breath Last Admin: 06/10/17 13:30 Dose: 0.63 mg Morphine Sulfate (Morphine) 1 mg IVP Q2 PRN PRN Reason: Agitation Last Admin: 06/10/17 16:50 Dose: 1 mg Pantoprazole Sodium (Protonix Inj) 40 mg IVP DAILY [facility] Last Admin: 06/10/17 08:55 Dose: 40 mg - Labs Labs: 06/10/17 09:30 06/10/17 09:30 PT 16.0 Seconds (9.8-13.1) H 05/28/17 04:55 INR 1.5 (0.9-1.2) H 05/28/17 04:55 APTT 34.3 Seconds (25.6-37.1) 05/28/17 04:55
--- NOTE | 2017-06-11 09:28 | CP.PCM.PN ---
Subjective - Date & Time of Evaluation Date of Evaluation: 06/11/17 Time of Evaluation: 09:15 - Subjective Subjective: Overnight events and new entries in EMR reviewed. Today's chest x-ray and her present clinical status were reviewed. The case was discussed with the wax pattern assembler and water jet loom fixer. Phone conference with the patient's children was had and a plan of further care was arrived at. A full explanation of all measures attempted thus far, and the futility of further aggressive therapies was discussed. A decision was made that no further further aggressive interventions would be undertaken. When family members have gathered, the pressor support will be discontinued. At that point, comfort measures will be maintained and a natural demise will be allowed to occur. Objective - Vital Signs/Intake and Output Vital Signs (last 24 hours): Temp Pulse Resp BP Pulse Ox 98.4 F 79 20 96/50 L 96 06/11/17 04:00 06/11/17 04:00 06/11/17 08:13 06/11/17 04:00 06/11/17 04:00 Intake and Output: 06/10/17 06/11/17 23:59 11:59 Intake Total 780 502 Output Total 560 20 Balance 220 482 - Medications Medications: Current Medications Acetylcysteine (Mucomyst 10% 4ml) 2 ml IH RBID [facility] Last Admin: 06/11/17 08:12 Dose: Not Given Apixaban (Eliquis) 2.5 mg PO BID [facility] PRN Reason: Protocol Last Admin: 06/05/17 16:09 Dose: 2.5 mg Carvedilol (Coreg) 3.125 mg PO Q12 [facility] Last Admin: 06/10/17 21:00 Dose: Not Given Home Med (Cyclosporine [Restasis]) 1 drop BOTHEYES BID [facility] Last Admin: 06/10/17 16:11 Dose: 1 drop Home Med (Dorzolamide 2%/Timolol 0.5% [Cosopt 2%-0.5% Opht]) 1 drop EACHEYE BID [facility] Last Admin: 06/10/17 16:12 Dose: 1 drop Home Med (Tafluprost/Pf [Zioptan 0.0015% Eye Drops]) 1 drop EACHEYE HS [facility] Last Admin: 06/11/17 06:14 Dose: Not Given Hydrocortisone (Anusol-Hc) 1 applic IA BID [facility] Last Admin: 06/10/17 16:10 Dose: 1 applic Piperacillin Sod/Tazobactam Sod (Zosyn 2.25 Gm Iv Premix) 2.25 gm in 50 mls @ 50 mls/hr IVPB Q12H [facility] Last Admin: 06/11/17 04:00 Dose: 50 mls/hr Dobutamine HCl/Dextrose (Dobutamine/Dextrose 5% 500mg/250ml) 500 mg in 250 mls @ 17.044 mls/hr IV .[id number] [facility]; 15 MCG/KG/MIN PRN Reason: Protocol Last Infusion: 06/11/17 06:08 Dose: 17.044 mls/hr Insulin Detemir (Levemir) 8 units SC DAILY [facility] Last Admin: 06/06/17 08:39 Dose: 8 units Insulin Human Regular (Humulin R) 0 units SC ACHS [facility] PRN Reason: Protocol Last Admin: 06/11/17 06:11 Dose: Not Given Levalbuterol HCl (Xopenex) 0.63 mg INH RQ8 [facility] Last Admin: 06/11/17 08:12 Dose: Not Given Levalbuterol HCl (Xopenex) 0.63 mg INH RQ8 PRN PRN Reason: Shortness of Breath Last Admin: 06/10/17 13:30 Dose: 0.63 mg Morphine Sulfate (Morphine) 1 mg IVP Q2 PRN PRN Reason: Agitation Last Admin: 06/10/17 16:50 Dose: 1 mg Pantoprazole Sodium (Protonix Inj) 40 mg IVP DAILY [facility] Last Admin: 06/10/17 08:55 Dose: 40 mg - Labs Labs: 06/10/17 09:30 06/10/17 09:30 PT 16.0 Seconds (9.8-13.1) H 05/28/17 04:55 INR 1.5 (0.9-1.2) H 05/28/17 04:55 APTT 34.3 Seconds (25.6-37.1) 05/28/17 04:55 Assessment and Plan (1) Chronic respiratory failure with hypoxia and hypercapnia Status: Chronic (2) CHF (congestive heart failure) Status: Chronic (3) COPD (chronic obstructive pulmonary disease) Status: Chronic (4) Pulmonary hypertension Status: Chronic (5) Pneumonia Status: Acute
[2017-06-11] MEDS: Hydrocortisone 2.5% (Rectal) CREAM PR SCH (10:27)
[2017-06-11] MEDS: Patient's Own Med (Dorzolamide 2%/Timolol 0.5% [Cosopt 2%-0.5% Opht] 1 DROP) EACHEYE SCH (10:28)
[2017-06-11] MEDS: Patient's Own Med (Cyclosporine [Restasis] 1 DROP) BOTHEYES SCH (10:28)
[2017-06-11 14:22] VITALS: BP 65/36; PULSE 75; RESP 16; O2SAT 92
--- NOTE | 2017-06-11 15:28 | CP.PCM.PRO ---
Pronouncement of Note - Clinical Findings Physical Exam: No Response Verbal/Painful Stimuli, Absent Peripheral Pulses{ Carotid & Femoral}, Absent Heart & Breath Sounds, No Pupillary Light Reflex, No Corneal Reflex, Pupils Fixed & Dilated - Pronouncement Time Time of Pronouncement of : 15:00 - Notifications Pronouncement Notifications: Family Notified, Atending Notified Rug Receiving Clerk Notified: No - Autopsy Autopsy Requested: No - [place] [id number]
--- NOTE | 2017-06-11 17:02 | PN ---
ENDO FOLLOWUP NOTE Room #421 ICU. This is an 87-year-old female with recent uncontrolled type 2 insulin-requiring diabetes, now taken off all insulin therapy and oral hypoglycemic therapy as given. She is being followed closely in the ICU for recent advanced COPD and congestive heart failure as noted thereof. Her glucose values have ranged from 144 to 187 mg/dl. The latest chemistry showed a BUN of 66, sodium 149, potassium 3.7, chloride 107, CO2 of 29, glucose 145, and creatinine 2.0. At this time, symptomatic and supportive measures are being treated given at this time with closer hemodynamic monitoring as noted. We will continue the low-dose correction scale using Humalog insulin only as indicated for glucose of above 300. We will obtain serial chemistries and supplement accordingly as needed. We will follow. Lauryn Chandra MD
--- NOTE | 2017-06-12 07:58 | CP.PCM.DIS ---
Provider - Provider Date of Admission: 05/23/17 14:31 Attending physician: Bogdan Wade MD Primary care physician: Bogdan Wade MD Time Spent in preparation of Discharge (in minutes): 30 Hospital Course - Lab Results Lab Results: Micro Results 06/10/17 09:40 Trachasp Gram Stain - Preliminary 06/10/17 09:40 Trachasp Sputum Culture - Preliminary Gram Negative Matthew 06/02/17 11:04 Urine,Catheterized Urine Culture - Final Enterococcus Faecalis 05/30/17 10:22 Pleural Fluid Gram Stain - Final 05/30/17 10:22 Pleural Fluid Body Fluid Culture - Final No growth. 05/23/17 13:24 Blood-Venous Blood Culture - Final NO GROWTH AFTER 5 DAYS 05/23/17 13:24 Blood-Venous Gram Stain - Final TEST NOT PERFORMED 05/23/17 17:48 Naris MRSA Culture (Admit) - Final MRSA NOT DETECTED Most Recent Lab Values WBC 8.2 K/uL (4.8-10.8) 06/10/17 09:30 RBC 2.90 Mil/uL (3.80-5.20) L 06/10/17 09:30 Hgb 9.1 g/dL (12.0-16.0) L 06/10/17 09:30 Hct 29.8 % (34.0-47.0) L 06/10/17 09:30 MCV 102.7 fl (81.0-99.0) H 06/10/17 09:30 MCH 31.3 pg (27.0-31.0) H 06/10/17 09:30 MCHC 30.5 g/dL (33.0-37.0) L 06/10/17 09:30 RDW 18.4 % (11.5-14.5) H 06/10/17 09:30 Plt Count 107 K/uL (130-400) L 06/10/17 09:30 MPV 9.9 fl (7.2-11.7) 06/10/17 09:30 Neut % (Auto) 91.8 % (50.0-75.0) H 06/10/17 09:30 Lymph % (Auto) 1.7 % (20.0-40.0) L 06/10/17 09:30 [place] % (Auto) 5.6 % (0.0-10.0) 06/10/17 09:30 Eos % (Auto) 0.8 % (0.0-4.0) 06/10/17 09:30 Baso % (Auto) 0.1 % (0.0-2.0) 06/10/17 09:30 Neut # 7.5 K/uL (1.8-7.0) H 06/10/17 09:30 Lymph # 0.1 K/uL (1.0-4.3) L 06/10/17 09:30 Kinney # 0.5 K/uL (0.0-0.8) 06/10/17 09:30 Eos # 0.1 K/uL (0.0-0.7) 06/10/17 09:30 Baso # 0.0 K/uL (0.0-0.2) 06/10/17 09:30 Neutrophils % (Manual) 97 % (42-75) H 06/10/17 09:30 Band Neutrophils % 1 % (0-2) 05/25/17 07:30 Lymphocytes % (Manual) 1 % (20-50) L 06/10/17 09:30 Monocytes % (Manual) 2 % (0-10) 06/10/17 09:30 Platelet Estimate Decreased (NORMAL) L 06/10/17 09:30 Large Platelets Present 06/10/17 09:30 Giant Platelets Present 06/10/17 09:30 Polychromasia Slight 06/06/17 04:30 Hypochromasia (manual) Slight 06/10/17 09:30 Poikilocytosis (manual Slight 06/06/17 04:30 Anisocytosis (manual) Slight 06/10/17 09:30 Macrocytosis (manual) Slight 06/10/17 09:30 Ovalocytes Slight 06/06/17 04:30 Stomatocytes Slight 05/25/17 07:30 [place] Cells Slight 06/06/17 04:30 PT 16.0 Seconds (9.8-13.1) H 05/28/17 04:55 INR 1.5 (0.9-1.2) H 05/28/17 04:55 APTT 34.3 Seconds (25.6-37.1) 05/28/17 04:55 pCO2 77 mm/Hg (35-45) H* 06/09/17 09:10 pO2 145 mm/Hg (80-100) H 06/09/17 09:10 HCO3 27.6 mmol/L (21-28) 06/09/17 09:10 ABG pH 7.23 (7.35-7.45) L 06/09/17 09:10 ABG Total CO2 34.6 mmol/L (22-28) H 06/09/17 09:10 ABG O2 Saturation 98.7 % (95-98) H 06/09/17 09:10 ABG O2 Content 12.8 ML/dL (15-23) L 06/09/17 09:10 ABG Base Excess 3.4 mmol/L (-2.0-3.0) H 06/09/17 09:10 ABG Hemoglobin 9.2 g/dL (11.7-17.4) L 06/09/17 09:10 ABG Carboxyhemoglobin 0.7 % (0.5-1.5) 06/09/17 09:10 POC ABG HHb (Measured) 1.3 % (0.0-5.0) 06/09/17 09:10 ABG Methemoglobin 1.1 % (0.0-3.0) 06/09/17 09:10 ABG O2 Capacity 13.0 mL/dL (16-24) L 06/09/17 09:10 Quoc Test Yes 06/09/17 09:10 ABG Potassium 4.1 mmol/L (3.6-5.2) 05/24/17 05:37 VBG pH 7.20 (7.32-7.43) L 06/07/17 12:51 VBG pCO2 88 mmHg (40-60) H* 06/07/17 12:51 VBG HCO3 27.2 mmol/L 06/07/17 12:51 VBG Total CO2 38.2 mmol/L (22-28) H 06/06/17 13:00 VBG O2 Sat (Calc) 91.5 % (40-65) H 06/07/17 12:51 VBG Base Excess 3.4 mmol/L (0.0-2.0) H 06/07/17 12:51 VBG Hgb O2 Saturation 78.2 % (95.0-98.0) L 06/07/17 11:16 VBG Potassium 3.6 mmol/L (3.6-5.2) 06/06/17 13:00 A-a O2 Difference 329.0 mm/Hg 06/09/17 09:10 Hemoglobin 9.9 g/dL (11.7-17.4) L 06/07/17 11:16 Hgb O2 Saturation 96.9 % (95.0-98.0) 06/09/17 09:10 Sodium 138.0 mmol/L (132-148) 06/06/17 13:00 Chloride 103.0 mmol/L (98-107) 06/06/17 13:00 Glucose 76 mg/dL (65-105) 06/06/17 13:00 Lactate 0.8 mmol/L (0.7-2.1) 06/06/17 13:00 Liter Flow 30 06/09/17 09:10 Vent Mode High flow lpm 06/09/17 09:10 FiO2 80.0 % 06/09/17 09:10 Blood Gas Comments Highflow 80%/30l 06/09/17 09:10 Crit Value Called To Dr milagros musa 06/09/17 09:10 Crit Value Called By [id number] 06/09/17 09:10 Crit Value Read Back Y 06/09/17 09:10 Blood Gas Notified Time 959 06/09/17 09:10 Sodium 149 mmol/l (132-148) H 06/10/17 09:30 Potassium 3.7 MMOL/L (3.6-5.0) 06/10/17 09:30 Chloride 107 mmol/L (98-107) 06/10/17 09:30 Carbon Dioxide 29 mmol/L (22-30) 06/10/17 09:30 Anion Gap 17 (10-20) 06/10/17 09:30 BUN 66 mg/dl (7-17) H 06/10/17 09:30 Creatinine 2.0 mg/dL (0.7-1.2) H 06/10/17 09:30 Est GFR ( Amer) 06/10/17 09:30 Est GFR (Non-Af Amer) 06/10/17 09:30 POC Glucose (mg/dL) 222 mg/dL (65-110) H 06/11/17 05:40 Random Glucose 145 mg/dL (65-105) H 06/10/17 09:30 Hemoglobin A1c 7.1 % (4.2-6.5) H 05/26/17 04:20 Lactic Acid 1.0 MMOL/L (0.7-2.1) 06/06/17 04:30 Uric Acid 8.0 mg/Dl (2.2-7.5) H 05/29/17 09:48 Calcium 8.8 mg/dL (8.4-10.2) 06/10/17 09:30 Phosphorus 4.2 mg/dl (2.5-4.5) 06/07/17 19:12 Magnesium 2.2 MG/DL (1.6-2.3) 06/07/17 19:12 Total Bilirubin 0.9 mg/dl (0.2-1.3) 06/10/17 09:30 AST 22 U/L (14-36) 06/10/17 09:30 ALT 24 U/L (9-52) 06/10/17 09:30 Alkaline Phosphatase 67 U/L (38-126) 06/10/17 09:30 Troponin I 0.0290 ng/mL (0.00-0.120) 05/23/17 18:18 NT-Pro-B Natriuret Pep 15438 pg/ml (0-900) H 05/23/17 13:24 Total Protein 6.2 G/DL (6.3-8.2) L 06/10/17 09:30 Albumin 2.9 g/dL (3.5-5.0) L 06/10/17 09:30 Globulin 3.3 gm/dL (2.2-3.9) 06/10/17 09:30 Albumin/Globulin Ratio 0.9 (1.0-2.1) L 06/10/17 09:30 TSH 3rd Generation 2.77 mIU/ML (0.46-4.68) 05/26/17 04:20 Arterial Blood Potassium 4.1 mmol/L (3.6-5.2) 05/24/17 05:37 Venous Blood Potassium 3.6 mmol/L (3.6-5.2) 06/06/17 13:00 Urine Color Yellow (YELLOW) 06/09/17 04:00 Urine Clarity Turbid (Clear) 06/09/17 04:00 Urine pH 5.0 (5.0-8.0) 06/09/17 04:00 Ur Specific [place] 1.018 (1.003-1.030) 06/09/17 04:00 Urine Protein 30 mg/dL (NEGATIVE) 06/09/17 04:00 Urine Glucose (UA) Neg mg/dL (Normal) 06/09/17 04:00 Urine Ketones Negative mg/dL (NEGATIVE) 06/09/17 04:00 Urine Blood Small (NEGATIVE) 06/09/17 04:00 Urine Nitrate Negative (NEGATIVE) 06/09/17 04:00 Urine Bilirubin Negative (NEGATIVE) 06/09/17 04:00 Urine Urobilinogen 0.2-1.0 mg/dL (0.2-1.0) 06/09/17 04:00 Ur Leukocyte Esterase Small Denisse/uL (Negative) 06/09/17 04:00 Urine RBC (Auto) 4 /hpf (0-3) H 06/09/17 04:00 Urine WBC Clumps (Auto) Few /hpf (NONE) H 06/09/17 04:00 Urine Microscopic WBC 13 /hpf (0-5) H 06/09/17 04:00 Ur Squamous Epith Cells 1 /hpf (0-5) 06/09/17 04:00 Ur Renal Epithelial Cell < 1 /hpf (0-3) 06/02/17 11:09 Calcium Oxalate Crystal Few /hpf (<OCC) H 06/09/17 04:00 Triple Phos Crystals Rare /hpf (<OCC) 06/02/17 11:09 Amorphous Sediment Occ /ul (<OCC) H 06/02/17 11:09 Urine Bacteria Rare (<OCC) 06/09/17 04:00 Hyaline Casts 0-2 /hpf (0-2) 06/02/17 11:09 Urine Yeast (Budding) Few /hpf (NEGATIVE) H 06/09/17 04:00 Fluid Source Pleural 05/30/17 10:22 Fluid Appearance Bloody (CLEAR) 05/30/17 10:22 Fluid pH 8.5 05/30/17 10:22 Fluid WBC 180.0 /mm3 (0.0-300.0) 05/30/17 10:22 Fluid RBC 15406.0 /mm3 (0.0-0.0) H 05/30/17 10:22 Fluid Tot Cell Count 100 (0-0) H 05/30/17 10:22 Fluid Neutrophils 27.0 % (0-0) H 05/30/17 10:22 Fluid Lymphocytes 42.0 % (0-0) H 05/30/17 10:22 Fld Monocyte/Macrophag 31 % (0-0) H 05/30/17 10:22 Fluid Glucose 71 mg/dL (NONE ESTABLISHED) 05/30/17 10:22 Fluid Total Protein 2.4 g/dL (NONE ESTABLISHED) 05/30/17 10:22 Fluid Albumin 1.2 g/dL 05/30/17 10:22 Fluid LDH 251 IU (NONE ESTABLISHED) 05/30/17 10:22 Fluid Amylase < 30 mg/dL (NONE ESTABLISHED) 05/30/17 10:22 Fluid Comment Cloudy 05/30/17 10:22 Blood Type O NEGATIVE 06/06/17 07:34 Antibody Screen Positive 06/06/17 07:34 Antibody Identification Anti Jka 06/06/17 07:34 Antigen Identification Jka Antigen - NEGATIVE 06/06/17 07:34 BBK History Checked Patient has bt 06/06/17 07:34 - Hospital Course Hospital Course: This 87-year-old female with an extensive medical history which consisted off hypertension with coronary artery disease which had resulted in multiple myocardial infarcts and a cardiac arrest in 1992 from which she was revived and an AICD was implanted at that time and who had developed atrial fibrillation requiring AV node ablation with ventricular pacing more than 10 years back, was admitted to intensive care unit on May 23 when she became increasingly unresponsive and blood gases showed a hypercarbic respiratory failure with a PCO2 of 68 mmHg which on following day was 71 mmHg. The patient was treated for congestive cardiac failure and eventually required pressor support. She could not tolerate BiPAP and was put on high flow oxygen delivery by nasal cannula and required gradually increasing levels of FiO2 to maintain adequate oxygenation. Chest x-rays showed evidence of right pleural effusion and on 30 of May a right pleural tap was carried out and 1700 mL of shailesh-colored fluid was removed with only marginal improvement in the patient clinically. She gradually became unresponsive. Her family agreed to a DO NOT RESUSCITATE order. The defibrillator function of AICD was disabled at the request. In spite of supportive care the patient continued to decline eventually showing a persistent hypotension in the range of her systolic blood pressure of 80-90 mmHg in spite of pressors and gradually increasing as ischemia. The family finally requested that only comfort care should be followed. According to their wishes the pressor support was removed. The patient finally at 3 PM on June 11, 2017. 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 chronic atrial fibrillation. Status post AICD implant. Severe chronic obstructive airway disease with ventilatory failure. Discharge Exam - Head Exam Head Exam: ATRAUMATIC Discharge Plan - Follow Up Plan Condition: FAIR Disposition: WITH WITHOUT AUTOPSY Referrals: Bogdan Wade MD [Primary Care Provider] -
--- NOTE | 2017-06-12 10:17 | PQF CHF ---
Dr. Wade there is some conflicting documentation in the medical record. Pt was admitted with systolic congestive heart failure, please clarify below acuity. This form is a permanent part of the medical record Clarification of your documentation is requested to better reflect the severity of illness and intensity of treatment of your patient. Indicators present [x] Diagnosis of CHF and/or history of CHF [x] BNP > 200 [x] Imaging Finding of Pulmonary Edema /Pleural Effusions [] Fluid/Volume Overload [] Pitting edema [] Ejection Fraction < 40% (Indicative of Systolic Heart Failure) [] Ejection Fraction > 40% (Indicative of Diastolic Heart Failure) [x] Dyspnea / Orthopenea / Paroxysmal Nocturnal Dyspnea [] Other: Location in the medical record that reflects the above clinical findings: [] Treatment Provided: [] PHYSICIAN'S RESPONSE Chronic CHF, Systolic Based on your medical judgment of the clinical indicators outlined above, are you treating this patient for a known or suspected: [] Acute CHF [] Systolic [] Diastolic [] Combined [] Chronic CHF [] Systolic [] Diastolic [] Combined [] Acute on Chronic CHF []Systolic [] Diastolic [] Combined [] CHF due hypertension [] Acute systolic []Chronic systolic [] Acute/ chronic systolic [] Other, please indicate: [] [] If Unable to Determine, please check the box, sign and date. Present On Admission (POA) Indicator: [] Present at the time of admission [] Not present at the time of admission [] Clinically Undetermined In responding to this query, please exercise your independent professional judgment. The fact that a question is asked does not imply that any particular answer is desired or expected. Thank you for your clarification on this documentation. If you have any questions please call:[ ] * Thank you, [ ]Radha Curry [employer] worker [employer]
== END 2017-06-11 16:56 | DRG 189 ==
LOC: H.ER 14:13 → H.ERHOLD 14:31 → H.ICU/CCU 15:27
PROVIDERS: ADMIT Internal Medicine Cardiovascular Disease; ATTEND Internal Medicine Cardiovascular Disease
PROC: 5A0955Z Assistance with Respiratory Ventilation, Greater than 96 Consecutive Hours (ICD-10-PCS; 2017-05-23)
PROC: 0W993ZZ Drainage of Right Pleural Cavity, Percutaneous Approach (ICD-10-PCS; principal; 2017-05-30)
PROC: 02HV33Z Insertion of Infusion Device into Superior Vena Cava, Percutaneous Approach (ICD-10-PCS; 2017-05-30)
DX: J96.21 Acute and chronic respiratory failure with hypoxia (principal); J69.0 Pneumonitis due to inhalation of food and vomit; I47.2 Ventricular tachycardia; G93.41 Metabolic encephalopathy; E87.4 Mixed disorder of acid-base balance; E87.0 Hyperosmolality and hypernatremia; D68.9 Coagulation defect, unspecified; I13.0 Hypertensive heart and chronic kidney disease with heart failure and stage 1 through stage 4 chronic kidney disease, or unspecified chronic kidney disease; I50.22 Chronic systolic (congestive) heart failure; I42.0 Dilated cardiomyopathy; J91.8 Pleural effusion in other conditions classified elsewhere; N39.0 Urinary tract infection, site not specified; J98.11 Atelectasis; F03.90 Unspecified dementia, unspecified severity, without behavioral disturbance, psychotic disturbance, mood disturbance, and anxiety; I48.2 Chronic atrial fibrillation; G25.3 Myoclonus; D69.6 Thrombocytopenia, unspecified; E11.21 Type 2 diabetes mellitus with diabetic nephropathy; E11.42 Type 2 diabetes mellitus with diabetic polyneuropathy; I27.2 Other secondary pulmonary hypertension; J96.22 Acute and chronic respiratory failure with hypercapnia; J44.9 Chronic obstructive pulmonary disease, unspecified; I25.10 Atherosclerotic heart disease of native coronary artery without angina pectoris; I25.2 Old myocardial infarction; Z95.810 Presence of automatic (implantable) cardiac defibrillator; Z95.1 Presence of aortocoronary bypass graft; Z51.5 Encounter for palliative care; Z88.2 Allergy status to sulfonamides; Z87.891 Personal history of nicotine dependence; Z79.01 Long term (current) use of anticoagulants; I34.0 Nonrheumatic mitral (valve) insufficiency; E78.00 Pure hypercholesterolemia, unspecified; K29.70 Gastritis, unspecified, without bleeding; E11.319 Type 2 diabetes mellitus with unspecified diabetic retinopathy without macular edema; E11.65 Type 2 diabetes mellitus with hyperglycemia; Z79.4 Long term (current) use of insulin; Z79.84 Long term (current) use of oral hypoglycemic drugs; E78.5 Hyperlipidemia, unspecified; Z66 Do not resuscitate; N18.9 Chronic kidney disease, unspecified; Y95 Nosocomial condition; D63.8 Anemia in other chronic diseases classified elsewhere; E11.22 Type 2 diabetes mellitus with diabetic chronic kidney disease; E87.6 Hypokalemia; R45.1 Restlessness and agitation; B95.2 Enterococcus as the cause of diseases classified elsewhere